=== PATIENT | female | born 1975 | race Caucasian/White ===

== ENCOUNTER 2024-09-24 08:42 | Inpatient (IN) | payer MEDICAID, SELFPAY ==
[2024-09-24] VITALS (38 sets, daily range): BP systolic 120–203; BP diastolic 71–121; PULSE 90–160; RESP 12–20; TEMP 35–38.3; O2SAT 98–100; BMI 21.1
--- NOTE | ~2024-09-24 | XR_ITS ---
CLINICAL HISTORY: cough, weakness 1 view chest x-ray Comparison: None Findings: The lungs are clear. Heart size is normal. A right-sided dialysis catheter is present and appears adequately positioned. No acute fracture. IMPRESSION: 1. No acute findings. This document has been electronically signed by: Kenton Naqvi MD on 09/24/2024 10:38:58
--- NOTE | ~2024-09-24 | CT_ITS ---
CLINICAL HISTORY: fall neck trauma CT cervical spine without contrast Comparison: None Findings: Normal vertebral body alignment. Degenerative changes are seen at C5-6 with disc space narrowing. No acute fractures or dislocations. No acute findings on limited view of the intracranial contents. Soft tissues of the neck are normal. Lung apices are clear. IMPRESSION: No acute findings. This document has been electronically signed by: Kenton Naqvi MD on 09/24/2024 11:53:56
--- NOTE | ~2024-09-24 | CT_ITS ---
CLINICAL HISTORY: acute change, very HTNive, seizures rule out bleed CT head without contrast. COMPARISON: CT head dated 09/24/24 at 10:36 EST FINDINGS: The visualized paranasal sinuses are clear. The mastoid air cells are clear. No calvarial fracture. No evidence for mass or mass effect. No intracranial hemorrhage or abnormal extra-axial fluid collection. Basal ganglia mineralization present bilaterally, stable. No evidence of hydrocephalus. The basilar cisterns are patent. Posterior fossa appears unremarkable. IMPRESSION: 1. No acute intracranial findings. This document has been electronically signed by: Darian Fernandez MD on 09/24/2024 16:23:09
--- NOTE | ~2024-09-24 | CT_ITS ---
CLINICAL HISTORY: change in mental status CT head without contrast Comparison: None Findings: No intra-axial mass, midline shift, hydrocephalus, or acute hemorrhage. There is moderate cortical atrophy for a patient of this age. There may be some low-attenuation changes in the periventricular and subcortical white matter. There is no sinus or mastoid fluid. The orbits are unremarkable. There is no acute fracture. The study is limited by motion. IMPRESSION: 1. Study somewhat limited by motion. Moderate cortical atrophy for a patient of this age. 2. Suspect low-attenuation changes in the periventricular and subcortical white matter perhaps reflecting microvascular ischemia. This document has been electronically signed by: Kenton Naqvi MD on 09/24/2024 11:48:18
--- NOTE | ~2024-09-24 | CT_ITS ---
CLINICAL HISTORY: ams, found down CT chest without contrast Comparison: None Findings: A dialysis catheter is present the tip of which is in the right atrium. Heart demonstrates no acute abnormalities. The visualized thyroid and mediastinum are unremarkable. Soft tissue emphysema is seen along the left anterior chest. There may be body wall edema. Soft tissue calcifications are seen in the left lateral anterior chest and adjacent to the shoulder and humerus. No acute fractures. IMPRESSION: 1. Small amount of soft tissue emphysema left anterior chest. 2. Mild body wall edema. 3. Soft tissue calcifications adjacent to shoulder and humerus. This document has been electronically signed by: Kenton Naqvi MD on 09/24/2024 11:52:04
--- NOTE | ~2024-09-24 | XR_ITS ---
CLINICAL HISTORY: intubated ETT placement Single view of the chest. COMPARISON: XR chest dated 09/24/24 at 10:26 EST FINDINGS: Endotracheal tube terminates 2.3 cm above the yaron. Stable large bore double-lumen central venous right subclavian line, tip overlying the right atrium. Low lung volumes. Borderline cardiomegaly. No consolidation. No pleural effusion or pneumothorax. No fracture identified. IMPRESSION: 1. Endotracheal tube terminates appropriately 2.3 cm above the yaron. This document has been electronically signed by: Darian Fernandez MD on 09/24/2024 15:41:40
--- NOTE | ~2024-09-24 | CT_ITS ---
CLINICAL HISTORY: ams, found down CT abdomen and pelvis without contrast Comparison: None Findings: No consolidation or effusion. 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 No bowel obstruction, pneumoperitoneum, or pneumatosis. There is body wall edema. Pelvic contents unremarkable. Normal appendix. A Culver catheter is seen. Its position is uncertain though it does not appear to be within the urinary bladder. It is likely within vagina and cervix. No acute fracture. Vascular calcifications are noted. IMPRESSION: 1.Culver catheter appears to be malpositioned and likely within the vagina and cervix. Please correlate clinically and adjust accordingly. 2.Body wall edema. 3. No definite acute intra-abdominal process. This document has been electronically signed by: Kenton Naqvi MD on 09/24/2024 12:00:58
--- NOTE | 2024-09-24 09:06 | ECG_ITS ---
Test Reason : TACHYCARDIC Blood Pressure : */* mmHG Vent. Rate : 172 BPM Atrial Rate : * BPM P-R Int : * ms QRS Dur : 140 ms QT Int : 306 ms P-R-T Axes : * 187 -71 degrees QTcB Int : 517 ms Wide QRS tachycardia - suspect SVT with abberrancy Right superior axis deviation Non-specific intra-ventricular conduction block Abnormal ECG No previous ECGs available Referred By: Elena Raymond Electronically Signed By: Tom Hansen
--- NOTE | 2024-09-24 09:38 | PC.NURSE ---
patient presented to the ED after [facility] found patient at home altered mental status. per ems patient hx is dialysis, unknown last dialysis. ENS states patient was on floor, right sided gaze, not responding/following commands. patient noted to have bruising of various stages of healing. patient bilat shoulders noted to be red, warm to the touch and rigid. multiple IV attempts, ED attending at bedside for lnie placement. IJ placed in the right, labs drawn. patient noted to be in SVT rate 150s-170s. patient medicated per SEP. temp sensing dexter placed- no urine output- unsure if patient still makes urine.
[2024-09-24 09:46] LABS: Glucose, Whole Blood 79 mg/dL (60-115)
[2024-09-24] MEDS: Insulin Regular, Human 100 UNIT/ML 10 ML VIAL IVPUSH (09:54)
[2024-09-24] MEDS: Calcium Gluconate/NaCl,Iso-Osm 2 GM/100 ML PLAST..BAG IV (09:55)
[2024-09-24] MEDS: Dextrose 50 % 25 GM/50 ML SYRINGE IVPUSH ×2 (09:55→11:06)
[2024-09-24] MEDS: Sodium Bicarbonate 8.4% 50 MEQ/50 ML SYRINGE IVPUSH ×2 (09:55)
[2024-09-24 09:56] LABS: Basophils Percent Auto 0.2 % (0-2); Imm Gran Abs Auto 0.14 X10*3/uL (0.00-0.03); Imm Gran Pct Auto 0.8 % (0.0-0.4); Lymphocytes Absolute Auto 0.6 X10*3/uL (1.2-4.9); MANUAL DIFF FLAG SCAN; Mean Corpuscular HGB Conc 32.5 g/dl (31.0-35.0); Mean Corpuscular Hemoglobin 28.5 pg (27.0-33.0); Mean Corpuscular Volume 87.4 fL (80.0-98.0); Monocytes Absolute Auto 0.4 X10*3/uL (0.1-1.2); Monocytes Percent Auto 2.4 % (2-11); Neutrophils Absolute Auto 17.5 x10*3/uL (2.0-8.3); Neutrophils Percent Auto 93.6 % (45-73); Platelet Count 356 X10*3/uL (160-400); Red Blood Count 2.39 X10*6/uL (4.20-5.50); Red Cell Distribution Width 15.7 % (11.0-16.0); SCAN SMEAR FLAG 1; White Blood Count 18.7 X10*3/uL (4.8-10.8)
[2024-09-24 09:59] LABS: INTERNATIONAL NORM RATIO 1.1 (0.9-1.1); Prothrombin Time 12.6 SEC (10.9-12.4)
--- NOTE | 2024-09-24 10:03 | ECG_ITS ---
Test Reason : TACHYCARDIA Blood Pressure : */* mmHG Vent. Rate : 111 BPM Atrial Rate : 111 BPM P-R Int : 130 ms QRS Dur : 70 ms QT Int : 342 ms P-R-T Axes : 59 0 29 degrees QTcB Int : 465 ms Sinus tachycardia Otherwise normal ECG When compared with ECG of 24-Sep-2024 09:36, Sinus rhythm has replaced Wide QRS tachycardia Vent. rate has decreased by 61 bpm Referred By: Elena Raymond Electronically Signed By: Tom Hansen
[2024-09-24 10:04] LABS: Hematocrit 20.9 % (37.0-47.0); Hemoglobin 6.8 g/dl (12.0-16.0)
--- OUTSIDE RECORDS SUMMARY | 2024-09-24 10:07 | XMS_ITS | Encounter Summary ---
Author Organization [facility] Address [address] [place] [phone] Phone Care Team Providers Care Almond Pan Finisher Name Role Phone Unavailable Primary Care Provider Unavailabl e Encounter Details Date Type Department Care Team ([facility] st Contact Info) Description 08/26/2024 Treatment [facility] [address] [phone] Carrillo Valerio MD [address] [phone] Social History Tobacco Use Types Packs/Day Years Used Date Smoking Tobacco: Never Assessed Comments Unknown Sex and Gender Information Value Date Recorded Sex Assigned at Not on file Legal Sex Female 11:46 AM EST Gender Identity Not on file Sexual Orientation Not on file documented as of this encounter Miscellaneous Notes * Dialysis Note - Carrillo Valerio MD - 08/26/2024 12:00 AM EST Patient: Simran Bolanos : 1975 Note Type: Dialysis Rounds-Basic Telehealth Service Date: 08/26/2024 Telehealth encounter using audiovisual technology, performed according to state requirements. Appropriate patient consent obtained. This patient was personally seen for a basic visit as part of routine monthly dialysis care for end stage renal disease. 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, unspecified Attending Intellectual Property Counsel: MARIA T FRAGOSO Dialysis Location: [facility] Schedule: Shift: 2 OVERVIEW COMMENTS: Note in dialysis subcontract manager ADEQUACY ASSESSMENT Kt/V, Natural Log 2.12 (08/05/24) 1.98 (06/29/24) 1.92 (06/03/24) UREA REDUCTION RATIO (%) 82 (08/05/24) 80 (06/29/24) 82 (06/03/24) BUN 104 (08/05/24) 128 (06/29/24) 100 (06/03/24) BUN Post Dialysis 19 (08/05/24) 25 (06/29/24) 18 (06/03/24) Creatinine 9.08 (08/05/24) 9.74 (06/29/24) 8.75 (06/03/24) Bicarbonate (CO2) 21 (08/05/24) 20 (06/29/24) 21 (06/03/24) Sodium 132 (08/05/24) 136 (06/29/24) 134 (06/03/24) ANEMIA ASSESSMENT Hgb 9.1 (08/19/24) 7.7 (08/05/24) 9.6 (07/17/24) Iron Saturation (TSat) 59 (08/05/24) 27 (06/29/24) 25 (06/03/24) Ferritin 1,280 (08/05/24) 874 (06/29/24) 760 (06/03/24) Iron 93 (08/05/24) 46 (06/29/24) 45 (06/03/24) TIBC 158 (08/05/24) 171 (06/29/24) 183 (06/03/24) MCV 96.4 (08/05/24) 96.3 (06/29/24) 96.5 (06/03/24) Platelets 274 (08/05/24) 375 (06/29/24) 349 (06/03/24) BMM ASSESSMENT Calcium, Adjusted Total 9.4 08/05/24 10.2 06/29/24 10.2 06/03/24 Calcium 9.0 08/05/24 10.0 06/29/24 10.0 06/03/24 Phosphorus, Serum 7.9 08/17/24 8.9 08/05/24 6.9 07/13/24 Ca*PO4 80.1 08/05/24 112.0 06/29/24 68.0 06/03/24 PTH, Intact 182 08/05/24 Magnesium 2.6 08/05/24 2.5 06/29/24 2.7 06/03/24 Alkaline Phosphatase 58 08/05/24 73 06/29/24 78 06/03/24 Aluminum 7 08/05/24 7 07/11/24 NUTRITION ASSESSMENT Albumin 3.5 08/05/24 3.8 06/29/24 3.8 06/03/24 Potassium 6.6 08/23/24 6.3 08/19/24 6.4 08/17/24 ADDITIONAL LABS White Blood Cells 3.4 (08/05/24) 8.0 (06/29/24) 8.2 (06/03/24) Cholesterol 140 (08/05/24) HDL 46 (08/05/24) LDL-Calc 73 (08/05/24) Triglycerides 104 (08/05/24) Hep B Surface Antibody <4 (08/05/24) Uric Acid 6.6 (08/05/24) ADDITIONAL COMMENT COMMENTS: 05/02/24 adjusting to HD 05/18/24 stable 05/30/24 doing ok 06/13/24 stable 06/21/24 doing ok 07/04/24 stable 08/26/24 same issues Signed by: CARRILLO VALERIO MD on 08/26/2024 at 07:58:42 PM Transcribed by: CARRILLO VALERIO MD on 08/26/2024 at 07:58:42 PM documented in this encounter Plan of Treatment Not on file documented as of this encounter Visit Diagnoses Not on filedocumented in this encounter
--- OUTSIDE RECORDS SUMMARY | 2024-09-24 10:07 | XMS_ITS | Encounter Summary ---
Author Organization [facility] Address [address] [place] [phone] Phone Care Team Providers Care Bottoming Room Inspector Name Role Phone Unavailable Primary Care Provider Unavailabl e Encounter Details Date Type Department Care Team ([facility] st Contact Info) Description 09/07/2024 Treatment [facility] [address] [phone] Carrillo Valerio MD [address] [phone] Social History Tobacco Use Types Packs/Day Years Used Date Smoking Tobacco: Never Assessed Comments Unknown Sex and Gender Information Value Date Recorded Sex Assigned at Not on file Legal Sex Female 11:46 AM EST Gender Identity Not on file Sexual Orientation Not on file documented as of this encounter Miscellaneous Notes * Dialysis Note - Carrillo Valerio MD - 09/07/2024 12:00 AM EST Patient: Simran Bolanos : 1975 Note Type: Dialysis Rounds-Comp Service Date: 09/07/2024 This patient was personally seen for a complete visit as part of routine monthly dialysis care for end stage renal disease. 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, unspecified Attending Computer Systems Software Engineer: MARIA T FRAGOSO MD Dialysis Location: [facility] Schedule: Shift: 2 OVERVIEW COMMENTS: Note in dialysis manager ecommerce ADEQUACY ASSESSMENT Kt/V, Natural Log 1.30 (09/02/24) 2.12 (08/05/24) 1.98 (06/29/24) UREA REDUCTION RATIO (%) 70 (09/02/24) 82 (08/05/24) 80 (06/29/24) BUN 79 (09/02/24) 104 (08/05/24) 128 (06/29/24) BUN Post Dialysis 24 (09/02/24) 19 (08/05/24) 25 (06/29/24) Creatinine 10.55 (09/02/24) 9.08 (08/05/24) 9.74 (06/29/24) Bicarbonate (CO2) 25 (09/02/24) 21 (08/05/24) 20 (06/29/24) Sodium 132 (09/02/24) 132 (08/05/24) 136 (06/29/24) ANEMIA ASSESSMENT Hgb 8.6 (09/02/24) 9.1 (08/19/24) 7.7 (08/05/24) Iron Saturation (TSat) 31 (09/02/24) 59 (08/05/24) 27 (06/29/24) Ferritin 1,071 (09/02/24) 1,280 (08/05/24) 874 (06/29/24) Iron 36 (09/02/24) 93 (08/05/24) 46 (06/29/24) TIBC 118 (09/02/24) 158 (08/05/24) 171 (06/29/24) MCV 91.8 (09/02/24) 96.4 (08/05/24) 96.3 (06/29/24) Platelets 343 (09/02/24) 274 (08/05/24) 375 (06/29/24) BMM ASSESSMENT Calcium, Adjusted Total 9.8 09/02/24 9.4 08/05/24 10.2 06/29/24 Calcium 9.3 09/02/24 9.0 08/05/24 10.0 06/29/24 Phosphorus, Serum 8.8 09/02/24 7.9 08/17/24 8.9 08/05/24 Ca*PO4 81.8 09/02/24 80.1 08/05/24 112.0 06/29/24 PTH, Intact 182 08/05/24 Magnesium 2.3 09/02/24 2.6 08/05/24 2.5 06/29/24 Alkaline Phosphatase 65 09/02/24 58 08/05/24 73 06/29/24 Aluminum 7 08/05/24 7 07/11/24 NUTRITION ASSESSMENT Albumin 3.4 09/02/24 3.5 08/05/24 3.8 06/29/24 Potassium 6.0 09/02/24 4.6 08/26/24 6.6 08/23/24 ADDITIONAL LABS White Blood Cells 6.6 (09/02/24) 3.4 (08/05/24) 8.0 (06/29/24) Cholesterol 140 (08/05/24) HDL 46 (08/05/24) LDL-Calc 73 (08/05/24) Triglycerides 104 (08/05/24) Hep B Surface Antibody <4 (08/05/24) Uric Acid 6.6 (08/05/24) ADDITIONAL COMMENT COMMENTS: 09/05/24 same issues 05/02/24 adjusting to HD 05/18/24 stable 05/30/24 doing ok 06/13/24 stable 06/21/24 doing ok 07/04/24 stable 08/26/24 same issues Signed by: CARRILLO VALERIO MD on 09/08/2024 at 06:08:17 AM documented in this encounter Plan of Treatment Not on file documented as of this encounter Visit Diagnoses Not on filedocumented in this encounter
--- OUTSIDE RECORDS SUMMARY | 2024-09-24 10:07 | XMS_ITS | Encounter Summary ---
Author Organization [facility] Address [address] [phone] Phone Care Team Providers Care Food Safety Officer Name Role Phone Unavailable Primary Care Provider Unavailabl e Encounter Details Date Type Department Care Team ([facility] st Contact Info) Description 09/14/2024 Treatment [facility] [address] [phone] Carrillo Valerio MD [address] [phone] Social History Tobacco Use Types Packs/Day Years Used Date Smoking Tobacco: Never Assessed Comments Unknown Sex and Gender Information Value Date Recorded Sex Assigned at Not on file Legal Sex Female 11:46 AM EST Gender Identity Not on file Sexual Orientation Not on file documented as of this encounter Miscellaneous Notes * Dialysis Note - Carrillo Valerio MD - 09/14/2024 12:00 AM EST Patient: Simran Bolanos : 1975 Note Type: Dialysis Rounds-Basic Telehealth Service Date: 09/14/2024 Telehealth encounter using audiovisual technology, performed according to state requirements. Appropriate patient consent obtained. This patient was personally seen for a basic visit as part of routine monthly dialysis care for end stage renal disease. 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 Schedule: Shift: 2 OVERVIEW COMMENTS: Note in dialysis creative resource manager ADEQUACY ASSESSMENT Kt/V, Natural Log 1.30 (09/02/24) 2.12 (08/05/24) 1.98 (06/29/24) UREA REDUCTION RATIO (%) 70 (09/02/24) 82 (08/05/24) 80 (06/29/24) BUN 79 (09/02/24) 104 (08/05/24) 128 (06/29/24) BUN Post Dialysis 24 (09/02/24) 19 (08/05/24) 25 (06/29/24) Creatinine 10.55 (09/02/24) 9.08 (08/05/24) 9.74 (06/29/24) Bicarbonate (CO2) 25 (09/02/24) 21 (08/05/24) 20 (06/29/24) Sodium 132 (09/02/24) 132 (08/05/24) 136 (06/29/24) ANEMIA ASSESSMENT Hgb 7.8 (09/19/24) 8.6 (09/02/24) 9.1 (08/19/24) Iron Saturation (TSat) 31 (09/02/24) 59 (08/05/24) [...] 09/02/24 9.0 08/05/24 10.0 06/29/24 Phosphorus, Serum 10.9 09/14/24 8.8 09/02/24 7.9 08/17/24 Ca*PO4 81.8 09/02/24 80.1 08/05/24 112.0 06/29/24 [...] (08/05/24) ADDITIONAL COMMENT COMMENTS: 09/05/24 same issues 09/14/24 stable 05/02/24 adjusting to HD 05/18/24 stable 05/30/24 doing ok 06/13/24 stable 06/21/24 doing ok 07/04/24 stable 08/26/24 same issues Signed by: CARRILLO VALERIO MD on 09/22/2024 at 04:25:06 AM documented in this encounter Plan of Treatment Not on file documented as of this encounter Visit Diagnoses Not on filedocumented in this encounter
--- OUTSIDE RECORDS SUMMARY | 2024-09-24 10:07 | XMS_ITS | Clinical Summary ---
Author Organization [employer] Address [address] [facility] [address] [place] [id number] Care Team Providers Care Automobile Service Station Manager Name Role Phone Simone Sloan PA-C Primary Care Provider [phone] Allergies No known active allergies Medications amphetamine-dextro amphetamine (Adderall) 20 MG tabletIndications: Attention deficit hyperactivity disorder (ADHD), predominantly inattentive type Take 1 tablet (20 mg) by mouth 2 times daily for 28 days. 56 tablet 3 Active clonazePAM (KlonoPIN) 1 MG tabletIndications: Panic disorder Take 1 tablet (1 mg) by mouth if needed in the morning, at noon, and at bedtime for anxiety for up to 28 days. 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 Panic disorder 10/21/2021 Herpes simplex 08/22/2021 Social History Tobacco Use Types Packs/Day Years Used Date Smoking Tobacco: Never Assessed Comments Unknown Sex and Gender Information Value Date Recorded Sex Assigned at Not on file Legal Sex Female 6:23 PM EDT Gender Identity Female 05/23/2022 6:23 PM EDT Sexual Orientation Not on file Plan of Treatment Health Maintenance Due Date Last Done Comments CT Colonography 1975 Colonoscopy 1975 Colorectal Cancer Screening 1975 Depression Screening 1975 FIT DNA/Cologuard 1975 FIT 1975 FOBT 1975 HIV Screening 1975 Sigmoidoscopy 1975 Alcohol/Substance Use Screening 1987 Tobacco Screening 1987 Family Planning (PISQ) 1990 Hepatitis C Screening 1993 DTaP/Tdap/Td Vaccines (1 - Tdap) 1994 Hepatitis B Vaccines (1 of 3 - 19+ 3-dose series) 1994 Pap Smear 1996 Cervical Cancer Screening 2005 HPV/Cotest 2005 Mammogram 2015 COVID-19 Vaccine (4 - 2023-2 5 season) 2024 07/01/2021, 09/21/2020, 08/24/2020 Influenza Vaccine (#1) 2024 Zoster Vaccines (1 of 2) 2025 RSV Patients and Patients Aged 60 years or older (1 - 1-dose 75+ series) 2050 HIB Vaccines Aged Out No longer eligi ble based on patient's age to complete this topic HPV Vaccines Aged Out No longer eligi ble based on patient's age to complete this topic Hepatitis A Vaccines Aged Out No long er eligible based on patient's age to complete this topic IPV Vaccines Aged Out No longer eligi ble based on patient's age to complete this topic Meningococcal Vaccine Aged Out No nicole pavan eligible based on patient's age to complete this topic Pneumococcal Vaccine: Pediatrics (0 to 5 Years) and At-Risk Patients (6 to 49) Years) Aged Out No longer eligible b ased on patient's age to complete this topic RSV under 20 months Aged Out No longe r eligible based on patient's age to complete this topic Rotavirus Vaccines Aged Out No longer eligible based on patient's age to complete this topic Care Teams Automobile Service Station Manager Relationship Specialty Start Date End Date Simone Sloan PA-C [address] [place] [address] PCP - General Family Medicine 11/16/23
--- OUTSIDE RECORDS SUMMARY | 2024-09-24 10:07 | XMS_ITS | Encounter Summary ---
Author Organization [facility] Address [address] [place] [phone] Phone Care Team Providers Care Spray Painter Helper Name Role Phone Unavailable Primary Care Provider Unavailabl e Encounter Details Date Type Department Care Team ([facility] st Contact Info) Description 08/23/2024 Treatment [facility] [address] [phone] Carrillo Valerio MD [address] [phone] Social History Tobacco Use Types Packs/Day Years Used Date Smoking Tobacco: Never Assessed Comments Unknown Sex and Gender Information Value Date Recorded Sex Assigned at Not on file Legal Sex Female 11:46 AM EST Gender Identity Not on file Sexual Orientation Not on file documented as of this encounter Miscellaneous Notes * Dialysis Note - Carrillo Valerio MD - 08/23/2024 12:00 AM EST Patient: Simran Bolanos : 1975 Note Type: Dialysis Rounds-Basic Telehealth Service Date: 08/23/2024 Telehealth encounter using audiovisual technology, performed according to state requirements. Appropriate patient consent obtained. This patient was personally seen for a basic visit as part of routine monthly dialysis care for end stage renal disease. 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, unspecified Attending Speed Belt Sander Tender: MARIA T FRAGOSO Dialysis Location: [facility] Schedule: Shift: 2 OVERVIEW COMMENTS: Note in dialysis training program manager ADEQUACY ASSESSMENT Kt/V, Natural Log 2.12 [...] 06/13/24 stable 06/21/24 doing ok 07/04/24 stable 08/23/24: cont poor compl--unwilling to stay full Tx, K runnuing high--sup to take Lokelma; cont to discuss importance of being compliant Signed by: CARRILLO VALERIO MD on 08/25/2024 at 08:40:01 AM Transcribed by: CARRILLO VALERIO MD on 08/25/2024 at 08:40:01 AM documented in this encounter Plan of Treatment Not on file documented as of this encounter Visit Diagnoses Not on filedocumented in this encounter
--- OUTSIDE RECORDS SUMMARY | 2024-09-24 10:07 | XMS_ITS | Encounter Summary ---
Author Organization [facility] Address [address] [place] [phone] Phone Care Team Providers Care Wire Drawing Machine Tender Name Role Phone Unavailable Primary Care Provider Unavailabl e Encounter Details Date Type Department Care Team ([facility] st Contact Info) Description 08/29/2024 Treatment [facility] [address] [phone] Carrillo Valerio MD [address] [phone] Social History Tobacco Use Types Packs/Day Years Used Date Smoking Tobacco: Never Assessed Comments Unknown Sex and Gender Information Value Date Recorded Sex Assigned at Not on file Legal Sex Female 11:46 AM EST Gender Identity Not on file Sexual Orientation Not on file documented as of this encounter Miscellaneous Notes * Dialysis Note - Carrillo Valerio MD - 08/29/2024 12:00 AM EST Patient: Simran Bolanos : 1975 Note Type: Dialysis Rounds-Basic Service Date: 08/29/2024 This patient was personally seen for a basic visit as part of routine monthly dialysis care for end stage renal disease. 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, unspecified Attending Securities Teller: MARIA T FRAGOSO MD Dialysis Location: [facility] Schedule: Shift: 2 OVERVIEW COMMENTS: Note in dialysis circuit manager ADEQUACY ASSESSMENT Kt/V, Natural Log 1.30 [...] Uric Acid 6.6 (08/05/24) ADDITIONAL COMMENT COMMENTS: 08/29/24 stable 09/05/24 same issues 05/02/24 adjusting to HD 05/18/24 stable 05/30/24 doing ok 06/13/24 stable 06/21/24 doing ok 07/04/24 stable 08/26/24 same issues Signed by: CARRILLO VALERIO MD on 09/22/2024 at 03:36:47 AM documented in this encounter Plan of Treatment Not on file documented as of this encounter Visit Diagnoses Not on filedocumented in this encounter
--- OUTSIDE RECORDS SUMMARY | 2024-09-24 10:07 | XMS_ITS | Encounter Summary ---
Author Organization [facility] Address [address] [place] [address] Phone Care Team Providers Care Emergency Dispatch Operator Name Role Phone Unavailable Primary Care Provider Unavailabl e Encounter Details Date Type Department Care Team (Late st Contact Info) Description 08/26/2024 Orders Only [facility] [address] [place] [address] Raoul Dooley MD [address] [address] [place] [address] Social History Tobacco Use Types Packs/Day Years Used Date Smoking Tobacco: Never Assessed Comments Unknown Sex and Gender Information Value Date Recorded Sex Assigned at Not on file Legal Sex Female 11:46 AM EST Gender Identity Not on file Sexual Orientation Not on file documented as of this encounter Plan of Treatment Not on file documented as of this encounter Procedures Procedure Name Priority Date/Time Associated Diagnosis Comments HEMOGLOBIN Routine 09/19/2024 3:00 AM EST LIH () Routine 09/14/2024 3:00 AM EST PHOSPHATE ( PHOSPHORUS) Routine 09/14/2024 3:00 AM EST LIH () Routine 09/02/2024 3:00 AM EST KT/V NATURAL LOG, URR () Routine 09/02/2024 3:00 AM EST CALCIUM PHOSPHORUS PRODUCT, ADJUSTED () Routine 09/02/2024 3:00 AM EST HEPATITIS B SURFACE ANTIGEN W/REFL CONFIRM Routine 09/02/2024 3:00 AM EST TRANSFERRIN SATURATION Routine 3:00 AM EST CBC AND DIFFERENTIAL Routine 09/02/2024 3:00 AM EST ALT Routine 09/02/2024 3:00 AM EST AST Routine 09/02/2024 3:00 AM EST PROTEIN, TOTAL, SERUM Routine 09/02/2024 3:00 AM EST ALKALINE PHOSPHATASE Routine 09/02/2024 3:00 AM EST MAGNESIUM Routine 09/02/2024 3:00 AM EST LACTATE DEHYDROGENASE Routine 09/02/2024 3:00 AM EST GLUCOSE, RANDOM Routine 09/02/2024 3:00 AM EST FERRITIN Routine 09/02/2024 3:00 AM EST CREATININE, SERUM Routine 09/02/2024 3:0 0 AM EST BILIRUBIN, TOTAL Routine 09/02/2024 3:00 AM EST ELECTROLYTE PANEL Routine 09/02/2024 3:0 0 AM EST COLLECTION DATE (HC) Routine 08/26/2024 3:00 AM EST LIH (HC) Routine 08/26/2024 3:00 AM EST POTASSIUM Routine 08/26/2024 3:00 AM EST documented in this encounter Results * (ABNORMAL) Hemoglobin (09/19/2024 3:00 AM EST) Hgb 7.8(L) 11.2 - 15.7 g/dL [facility] Hemoglobin x 3 23.4(L) 33.6 - 47.1 g/dL [facility] 09/19/2024 3:00 AM EST 09/20/2024 12:19 PM EST Raoul Dooley MD LAB BLOOD ORDERABLES Final Re sult Performing Organization Address [facility] Co de Phone Number [facility] [address] [place] [address] * (ABNORMAL) Phosphorus (09/14/2024 3:00 AM EST) [facility] Phosphorus, Serum 10.9(H) 2.5 - 5.0 mg/dL [facility] 09/14/2024 3:00 AM EST 09/16/2024 1:21 PM EST Raoul Dooley MD LAB BLOOD ORDERABLES Final Re sult Performing Organization Address [facility] [[email or web address]] de Phone Number [facility] [address] [place] [address] * LIH (09/14/2024 3:00 AM EST) [facility] Lipemia Normal Normal [facility] Icterus Normal Normal [facility] Hemolysis Normal Normal [facility] 09/14/2024 3:00 AM EST 09/16/2024 1:21 PM EST Raoul Dooley MD LAB [id number] SOLICITED RESULTS Final Result Performing Organization Address [facility] [[email or web address]] de Phone Number [facility] [address] [place] [address] * Hepatitis B Surface Ag w/Reflex Confirmation (09/02/2024 3:00 AM EST) [facility] Hep B Surface Antigen Negative Negative [facility] 09/02/2024 3:00 AM EST 09/03/2024 1:52 PM EST Raoul Dooley MD LAB BLOOD ORDERABLES Final Re sult Performing Organization Address [facility] de Phone Number [facility] [address] [place] [address] * (ABNORMAL) TSAT (09/02/2024 3:00 AM EST) Iron 36(L) 50 - 170 ug/dL [facility] Transferrin 84(L) 250 - 380 mg/dL [facility] TIBC 118(L) 211 - 406 ug/dL [facility] Iron Saturation (TSat) 31 22 - 52 % [facility] 09/02/2024 3:00 AM EST 09/03/2024 1:52 PM EST Raoul Dooley MD LAB BLOOD ORDERABLES Final Re sult Performing Organization Address [facility] de Phone Number [facility] [address] [place] [address] * Magnesium (09/02/2024 3:00 AM EST) Pathologist [facility] Magnesium 2.3 1.9 - 2.7 mg/dL [facility] 09/02/2024 3:00 AM EST 09/03/2024 1:52 PM EST Raoul Dooley MD LAB BLOOD ORDERABLES Final Re sult Performing Organization Address [facility] de Phone Number [facility] [address] [place] [address] * (ABNORMAL) Electrolyte panel (09/02/2024 3:00 AM EST) Sodium 132(L) 136 - 145 mEq/L [facility] Potassium 6.0(H) 3.4 - 5.0 mEq/L [facility] Chloride 94(L) 98 - 107 mEq/L [facility] Bicarbonate (CO2) 25 21 - 31 mEq/L [facility] Anion Gap 13 3 - 14 mEq/L [facility] 09/02/2024 3:00 AM EST 09/03/2024 1:52 PM EST Raoul Dooley MD LAB BLOOD ORDERABLES Final Re sult Performing Organization Address [facility] Co de Phone Number [facility] [address] [place] [address] * LIH (09/02/2024 3:00 AM EST) Lipemia Normal Normal [facility] Icterus Normal Normal [facility] Hemolysis Normal Normal [facility] 09/02/2024 3:00 AM EST 09/03/2024 1:52 PM EST Raoul Dooley MD LAB [id number] SOLICITED RESULTS Final Result Performing Organization Address [facility] de Phone Number [facility] [address] [place] [address] * (ABNORMAL) Bilirubin, total (09/02/2024 3:00 AM EST) Total Bilirubin 0.2(L) 0.3 - 1.2 mg/dL [facility] 09/02/2024 3:00 AM EST 09/03/2024 1:52 PM EST Raoul Dooley MD LAB BLOOD ORDERABLES Final Re sult Performing Organization Address [facility] de Phone Number [facility] [address] [place] [address] * (ABNORMAL) Creatinine, serum (09/02/2024 3:00 AM EST) Creatinine 10.55(H) 0.55 - 1.02 mg/dL [facility] 09/02/2024 3:00 AM EST 09/03/2024 1:52 PM EST Raoul Dooley MD LAB BLOOD ORDERABLES Final Re sult Performing Organization Address [facility] Co de Phone Number [facility] [address] [place] [address] * Glucose, random (09/02/2024 3:00 AM EST) Glucose 90 74 - 109 mg/dL [facility] 09/02/2024 3:00 AM EST 09/03/2024 1:52 PM EST Raoul Dooley MD LAB BLOOD ORDERABLES Final Re sult Performing Organization Address [facility] de Phone Number [facility] [address] [place] [address] * (ABNORMAL) Lactate dehydrogenase (09/02/2024 3:00 AM EST) LDH 297(H) 120 - 246 U/L [facility] 09/02/2024 3:00 AM EST 09/03/2024 1:52 PM EST Raoul Dooley MD LAB BLOOD ORDERABLES Final Re sult Performing Organization Address [facility] Phone Number [facility] [address] [place] [address] * Protein, total (09/02/2024 3:00 AM EST) Total Protein 6.5 6.4 - 8.9 g/dL [facility] 09/02/2024 3:00 AM EST 09/03/2024 1:52 PM EST Raoul Dooley MD LAB BLOOD ORDERABLES Final Re sult Performing Organization Address [facility] de Phone Number [facility] [address] [place] [address] * (ABNORMAL) ALT (09/02/2024 3:00 AM EST) ALT (SGPT) <7(L) 10 - 49 U/L [facility] 09/02/2024 3:00 AM EST 09/03/2024 1:52 PM EST Raoul Dooley MD LAB BLOOD ORDERABLES Final Re sult Performing Organization Address [facility] de Phone Number [facility] [address] [place] [address] * AST (09/02/2024 3:00 AM EST) AST (SGOT) <8 <34 U/L [facility] 09/02/2024 3:00 AM EST 09/03/2024 1:52 PM EST Raoul Dooley MD LAB BLOOD ORDERABLES Final Re sult Performing Organization Address [facility] de Phone Number [facility] [address] [place] [address] * Alkaline phosphatase (09/02/2024 3:00 AM EST) Alkaline Phosphatase 65 46 - 116 U/L [facility] 09/02/2024 3:00 AM EST 09/03/2024 1:52 PM EST Raoul Dooley MD LAB BLOOD ORDERABLES Final Re sult Performing Organization Address [facility] de Phone Number [facility] [address] [place] [address] * (ABNORMAL) Calcium Phosphorus Product, Adjusted (09/02/2024 3:00 AM EST) Albumin 3.4(L) 3.6 - 5.4 g/dL [facility] Calcium 9.3 8.6 - 10.3 mg/dL [facility] Phosphorus, Serum 8.8(H) 2.5 - 5.0 mg/dL [facility] Ca*PO4 81.8(A) <55.0 mg2/dL2 [facility] Calcium, Adjusted Total 9.8 8.6 - 10.3 mg/dL [facility] CA*PO4 CORRCTD 86.2(A) <55.0 mg2/dL2 [facility] 09/02/2024 3:00 AM EST 09/03/2024 1:52 PM EST us Raoul Dooley MD LAB [id number] SOLICITED RESULTS Final Result Performing Organization Address [facility] [[email or web address]] de Phone Number [facility] [address] [place] [address] * (ABNORMAL) Ferritin (09/02/2024 3:00 AM EST) [facility] Ferritin 1,071(H) 10 - 291 ng/mL [facility] 09/02/2024 3:00 AM EST 09/03/2024 1:52 PM EST Raoul Dooley MD LAB BLOOD ORDERABLES Final Re sult Performing Organization Address [facility] [[email or web address]] de Phone Number [facility] [address] [place] [address] * (ABNORMAL) Kt/V Natural Log, URR (09/02/2024 3:00 AM EST) [facility] Treatment Time 127 min [facility] Pre-Weight, lb 49.4 kg [facility] Post-Weight, lb 48.6 kg [facility] Ultrafiltration Rate 8 <=13 mL/kg/hr [facility] Comment: Recommend achieving Ultrafiltration Rate (UFR) <=10 mL/kg/hr References: Keenan WALTERS et al. Kidney Int. 2010; 79(2):250-257 BUN Post Dialysis 24 7 - 25 mg/dL [facility] BUN 79(H) 7 - 25 mg/dL [facility] UREA REDUCTION RATIO (%) 70 >=65 % [facility] Kt/V Natural Log 1.30 >=1.2 [facility] 09/02/2024 3:00 AM EST 09/03/2024 1:52 PM EST Raoul Dooley MD LAB [id number] SOLICITED RESULTS Final Result Performing Organization Address [facility] [[email or web address]] de Phone Number [facility] [address] [place] [address] * (ABNORMAL) CBC and Differential (09/02/2024 3:00 AM EST) [facility] DIFFERENTIAL MANUAL, 2 Not Indicated [facility] White Blood Cells 6.6 4.0 - 10.0 K/uL [facility] RBC 3.04(L) 3.93 - 5.22 M/uL [facility] Hgb 8.6(L) 11.2 - 15.7 g/dL [facility] Hemoglobin x 3 25.8(L) 33.6 - 47.1 g/dL [facility] Hematocrit 27.9(L) 34.1 - 44.9 % [facility] MCV 91.8 79.4 - 94.8 fL [facility] MCH 28.3 25.6 - 32.2 pg [facility] MCHC 30.8(L) 32.2 - 35.5 g/dL [facility] Platelets 343 182 - 369 K/uL [facility] RDW 14.5(H) 11.7 - 14.4 % [facility] Neutrophils Relative 72.5(H) 34.0 - 71.1 % [facility] Lymphocytes Relative 18.1(L) 19.3 - 51.7 % [facility] Monocytes 6.8 4.7 - 12.5 % [facility] Eosinophils Relative 1.8 0.7 - 5.8 % [facility] Basophils Relative 0.5 0.1 - 1.2 % [facility] Immature Granulocytes 0.3 0.0 - 1.0 % [facility] 09/02/2024 3:00 AM EST 09/03/2024 1:38 PM EST Raoul Dooley MD LAB BLOOD ORDERABLES Final Re sult [facility] [address] [place] [address] * LIH (08/26/2024 3:00 AM EST) Lipemia Normal Normal [facility] Icterus Normal Normal [facility] Hemolysis Normal Normal [facility] 08/26/2024 3:00 AM EST 08/29/2024 1:08 PM EST Raoul Dooley MD LAB [id number] SOLICITED RESULTS Final Result Performing Organization Address City/[facility]/ZIP Co de Phone Number [facility] [address] [place] [address] * Potassium (08/26/2024 3:00 AM EST) Potassium 4.6 3.4 - 5.0 mEq/L [facility] 08/26/2024 3:00 AM EST 08/29/2024 1:08 PM EST Raoul Dooley MD LAB BLOOD ORDERABLES Final Re sult Performing Organization Address [facility] Co de Phone Number CAR[facility] [address] [place] [address] * Collection Date (08/26/2024 3:00 AM EST) Collection Date See Comment [facility] Comment: Patient sample received may exceed specimen stability, based on the collection date electronically provided. ??When reviewing patient results, verify collection information and consider specimen stability before acting on any critical or panic results. 08/26/2024 3:00 AM EST us Raoul Dooley MD LAB [id number] SOLICITED RESULTS Final Result Performing Organization Address [facility] Co de Phone Number [facility] [address] [place] [address] documented in this encounter Visit Diagnoses Not on filedocumented in this encounter
--- OUTSIDE RECORDS SUMMARY | 2024-09-24 10:07 | XMS_ITS | Encounter Summary ---
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 Role Phone Unavailable Primary Care Provider Unavailabl e Encounter Details Date Type Department Care Team ([facility] st Contact Info) Description 08/24/2024 Treatment [facility] [address] [address] Maria T Alas MD [address] [address] Social History Tobacco Use Types Packs/Day Years Used Date Smoking Tobacco: Never Assessed Comments Unknown Sex and Gender Information Value Date Recorded Sex Assigned at Not on file Legal Sex Female 11:46 AM EST Gender Identity Not on file Sexual Orientation Not on file documented as of this encounter Miscellaneous Notes * Dialysis Note - Maria T Alas MD - 08/24/2024 12:00 AM EST Patient: Simran Bolanos : 1975 Note Type: Dialysis Rounds-Comp Service Date: 08/24/2024 This patient was personally seen for a complete visit as part of routine monthly dialysis care for end stage renal disease. 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 Schedule: Shift: 2 OVERVIEW Patient is stable. 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 BP AND FLUID ASSESSMENT High blood pressure. Fluid status acceptable. ADEQUACY ASSESSMENT Target met. Kt/V, Natural Log 2.12 (08/05/24) 1.98 (06/29/24) 1.92 (06/03/24) UREA REDUCTION RATIO (%) 82 (08/05/24) 80 (06/29/24) 82 (06/03/24) BUN 104 (08/05/24) 128 (06/29/24) 100 (06/03/24) BUN Post Dialysis 19 (08/05/24) 25 (06/29/24) 18 (06/03/24) Creatinine 9.08 (08/05/24) 9.74 (06/29/24) 8.75 (06/03/24) Bicarbonate (CO2) 21 (08/05/24) 20 (06/29/24) 21 (06/03/24) Sodium 132 (08/05/24) 136 (06/29/24) 134 (06/03/24) ACCESS ASSESSMENT Vascular access examined. ANEMIA ASSESSMENT Anemia targets met. Hemoglobin not at target. Hgb 9.1 (08/19/24) 7.7 (08/05/24) 9.6 (07/17/24) Iron Saturation (TSat) 59 (08/05/24) 27 (06/29/24) 25 (06/03/24) Ferritin 1,280 (08/05/24) 874 (06/29/24) 760 (06/03/24) Iron 93 (08/05/24) 46 (06/29/24) 45 (06/03/24) TIBC 158 (08/05/24) 171 (06/29/24) 183 (06/03/24) MCV 96.4 (08/05/24) 96.3 (06/29/24) 96.5 (06/03/24) Platelets 274 (08/05/24) 375 (06/29/24) 349 (06/03/24) BMM ASSESSMENT PTH within target. Hyperphosphatemia noted. Calcium controlled. Bone and mineral metabolism parameters reviewed. Calcium, Adjusted Total 9.4 08/05/24 10.2 06/29/24 10.2 06/03/24 Calcium 9.0 08/05/24 10.0 06/29/24 10.0 06/03/24 Phosphorus, Serum 7.9 08/17/24 8.9 08/05/24 6.9 07/13/24 Ca*PO4 80.1 08/05/24 112.0 06/29/24 68.0 06/03/24 PTH, Intact 182 08/05/24 Magnesium 2.6 08/05/24 2.5 06/29/24 2.7 06/03/24 Alkaline Phosphatase 58 08/05/24 73 06/29/24 78 06/03/24 Aluminum 7 08/05/24 7 07/11/24 NUTRITION ASSESSMENT Albumin not at goal. Albumin 3.5 08/05/24 3.8 06/29/24 3.8 06/03/24 Potassium 6.3 08/19/24 6.4 08/17/24 6.7 08/15/24 PHYSICAL EXAM Exam performed. Vital Signs Reviewed. Lungs - Clear. CV - Blood pressure noted. No edema. EXT - No ulcers. ADDITIONAL LABS White Blood Cells 3.4 (08/05/24) 8.0 (06/29/24) 8.2 (06/03/24) Cholesterol 140 (08/05/24) HDL 46 (08/05/24) LDL-Calc 73 (08/05/24) Triglycerides 104 (08/05/24) Hep B Surface Antibody <4 (08/05/24) Uric Acid 6.6 (08/05/24) ADDITIONAL COMMENT COMMENTS: 05/02/24 adjusting to HD 05/18/24 stable 05/30/24 doing ok 06/13/24 stable 06/21/24 doing ok 07/04/24 stable Signed by: MARIA T ALAS MD on 08/24/2024 at 12:40:02 PM documented in this encounter Plan of Treatment Not on file documented as of this encounter Visit Diagnoses Not on filedocumented in this encounter
--- OUTSIDE RECORDS SUMMARY | 2024-09-24 10:08 | XMS_ITS | Clinical Summary ---
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 Herpes simplex 08/22/2021 Encounters Date Type Department Care Team Description 09/14/2024 Treatment [facility] [address] [phone] Raoul Dooley MD 09/07/2024 Treatment [facility] [address] [phone] Raoul Dooley MD 08/29/2024 Treatment [facility] [address] [phone] Raoul Dooley MD 08/26/2024 Orders Only [facility] [address] [phone] Raoul Dooley MD 08/26/2024 Treatment [facility] [address] [phone] Raoul Dooley MD 08/24/2024 Treatment [facility] [address] [phone] Drake Alas MD 08/23/2024 Treatment [facility] [address] [phone] Raoul Dooley MD 07/19/2024 Treatment [facility] [address] [phone] Raoul Dooley MD 07/11/2024 Treatment [facility] [address] [phone] Raoul Dooley MD 07/04/2024 Treatment [facility] [address] [phone] Raoul Dooley MD from Last 3 Months Social History Tobacco Use Types Packs/Day Years Used Date Smoking Tobacco: Never Assessed Comments Unknown Sex and Gender Information Value Date Recorded Sex Assigned at Not on file Legal Sex Female 11:46 AM EST Gender Identity Not on file Sexual Orientation Not on file Plan of Treatment Health Maintenance Due Date Last Done Comments Pneumococcal Vaccine: Pediat rics (0 to 5 Years) and At-Risk Patients (6 to 64 Years) (1 of 2 - PCV) 1981 Hepatitis B Vaccine (1 of 5 - Risk Dialysis 4-dose series) 1995 Influenza Vaccine (#1) 2024 Colorectal Cancer Screening: Annual FOBT 2024 Colorectal Cancer Screening: Colonoscopy 2024 Colorectal Cancer Screening: Sigmoidoscopy 2024 Procedures Procedure Name Priority Date/Time Associated Diagnosis Comments HEMOGLOBIN Routine 09/19/2024 3:00 AM EST PHOSPHATE ( PHOSPHORUS) Routine 09/14/2024 3:00 AM EST LIH (HC) Routine 09/14/2024 3:00 AM EST HEPATITIS B SURFACE ANTIGEN W/REFL CONFIRM Routine 09/02/2024 3:00 AM EST TRANSFERRIN SATURATION Routine 3:00 AM EST MAGNESIUM Routine 09/02/2024 3:00 AM EST ELECTROLYTE PANEL Routine 09/02/2024 3:0 0 AM EST LIH (HC) Routine 09/02/2024 3:00 AM EST BILIRUBIN, TOTAL Routine 09/02/2024 3:00 AM EST CREATININE, SERUM Routine 09/02/2024 3:0 0 AM EST GLUCOSE, RANDOM Routine 09/02/2024 3:00 AM EST LACTATE DEHYDROGENASE Routine 09/02/2024 3:00 AM EST PROTEIN, TOTAL, SERUM Routine 09/02/2024 3:00 AM EST ALT Routine 09/02/2024 3:00 AM EST AST Routine 09/02/2024 3:00 AM EST ALKALINE PHOSPHATASE Routine 09/02/2024 3:00 AM EST CALCIUM PHOSPHORUS PRODUCT, ADJUSTED (HC) Routine 09/02/2024 3:00 AM EST FERRITIN Routine 09/02/2024 3:00 AM EST KT/V NATURAL LOG, URR (HC) Routine 09/02/2024 3:00 AM EST CBC AND DIFFERENTIAL Routine 09/02/2024 3:00 AM EST LIH (HC) Routine 08/26/2024 3:00 AM EST POTASSIUM Routine 08/26/2024 3:00 AM EST COLLECTION DATE (HC) Routine 08/26/2024 3:00 AM EST LIH (HC) Routine 08/23/2024 3:00 AM EST POTASSIUM Routine 08/23/2024 3:00 AM EST HEMOGLOBIN Routine 08/19/2024 3:00 AM EST POTASSIUM Routine 08/19/2024 3:00 AM EST LIH (HC) Routine 08/19/2024 3:00 AM EST LIH (HC) Routine 08/17/2024 3:00 AM EST PHOSPHATE ( PHOSPHORUS) Routine 08/17/2024 3:00 AM EST POTASSIUM Routine 08/17/2024 3:00 AM EST LIH (HC) Routine 08/15/2024 3:00 AM EST POTASSIUM Routine 08/15/2024 3:00 AM EST LIH (HC) Routine 08/12/2024 3:00 AM EST POTASSIUM Routine 08/12/2024 3:00 AM EST LIH (HC) Routine 08/10/2024 3:00 AM EST POTASSIUM Routine 08/10/2024 3:00 AM EST ALUMINUM LEVEL Routine 08/05/2024 3:00 AM EST CONFIRMATION TEST HCV Routine 08/05/2024 3:00 AM EST HEPATITIS C ABS W/REFLEX RNA DETECTR Routine 08/05/2024 3:00 AM EST CBC Routine 08/05/2024 3:00 AM EST URIC ACID Routine 08/05/2024 3:00 AM EST PROTEIN, TOTAL, SERUM Routine 08/05/2024 3:00 AM EST TRANSFERRIN SATURATION Routine 3:00 AM EST MAGNESIUM Routine 08/05/2024 3:00 AM EST LIPID PANEL Routine 08/05/2024 3:00 AM EST ELECTROLYTE PANEL Routine 08/05/2024 3:0 0 AM EST LIH (HC) Routine 08/05/2024 3:00 AM EST GLUCOSE, RANDOM Routine 08/05/2024 3:00 AM EST CREATININE, SERUM Routine 08/05/2024 3:0 0 AM EST LACTATE DEHYDROGENASE Routine 08/05/2024 3:00 AM EST AST Routine 08/05/2024 3:00 AM EST ALT Routine 08/05/2024 3:00 AM EST BILIRUBIN, TOTAL Routine 08/05/2024 3:00 AM EST ALKALINE PHOSPHATASE Routine 08/05/2024 3:00 AM EST CALCIUM PHOSPHORUS PRODUCT, ADJUSTED (HC) Routine 08/05/2024 3:00 AM EST HEPATITIS B SURFACE ANTIGEN W/REFL CONFIRM Routine 08/05/2024 3:00 AM EST FERRITIN Routine 08/05/2024 3:00 AM EST HEPATITIS B SURFACE ANTIBODY QUANT Routine 08/05/2024 3:00 AM EST PTH, INTACT Routine 08/05/2024 3:00 AM EST KT/V NATURAL LOG, URR () Routine 08/05/2024 3:00 AM EST COLLECTION DATE () Routine 08/05/2024 3:00 AM EST POTASSIUM Routine 07/17/2024 3:00 AM EST LIH () Routine 07/17/2024 3:00 AM EST HEMOGLOBIN Routine 07/17/2024 3:00 AM EST LIH () Routine 07/13/2024 3:00 AM EST POTASSIUM Routine 07/13/2024 3:00 AM EST PHOSPHATE ( PHOSPHORUS) Routine 07/13/2024 3:00 AM EST ALUMINUM LEVEL Routine 07/11/2024 3:00 AM EST LIH () Routine 07/08/2024 3:00 AM EST PHOSPHATE ( PHOSPHORUS) Routine 07/08/2024 3:00 AM EST POTASSIUM Routine 07/06/2024 3:00 AM EST LIH () Routine 07/06/2024 3:00 AM EST LIH () Routine 07/04/2024 3:00 AM EST POTASSIUM Routine 07/04/2024 3:00 AM EST HEPATITIS B SURFACE ANTIGEN W/REFL CONFIRM Routine 06/29/2024 3:00 AM EST TRANSFERRIN SATURATION Routine 3:00 AM EST PROTEIN, TOTAL, SERUM Routine 06/29/2024 3:00 AM EST ELECTROLYTE PANEL Routine 06/29/2024 3:0 0 AM EST LACTATE DEHYDROGENASE Routine 06/29/2024 3:00 AM EST MAGNESIUM Routine 06/29/2024 3:00 AM EST LIH (HC) Routine 06/29/2024 3:00 AM EST GLUCOSE, RANDOM Routine 06/29/2024 3:00 AM EST BILIRUBIN, TOTAL Routine 06/29/2024 3:00 AM EST CREATININE, SERUM Routine 06/29/2024 3:0 0 AM EST AST Routine 06/29/2024 3:00 AM EST ALKALINE PHOSPHATASE Routine 06/29/2024 3:00 AM EST ALT Routine 06/29/2024 3:00 AM EST CALCIUM PHOSPHORUS PRODUCT, ADJUSTED (HC) Routine 06/29/2024 3:00 AM EST FERRITIN Routine 06/29/2024 3:00 AM EST KT/V NATURAL LOG, URR (HC) Routine 06/29/2024 3:00 AM EST CBC AND DIFFERENTIAL Routine 06/29/2024 3:00 AM EST from Last 3 Months Results * (ABNORMAL) Hemoglobin (09/19/2024 3:00 AM EST) Only the most recent of3 resultswithin the time period is included. Hgb 7.8(L) 11.2 - 15.7 g/dL [facility] Hemoglobin x 3 23.4(L) 33.6 - 47.1 g/dL [facility] 09/19/2024 3:00 AM EST 09/20/2024 12:19 PM EST Raoul Dooley MD LAB BLOOD ORDERABLES Final Re sult Performing Organization Address [facility] Co de Phone Number [facility] [address] [place] [address] * LIH (09/14/2024 3:00 AM EST) Only the most recent of16 resultswithin the time period is included. Lipemia Normal Normal [facility] Icterus Normal Normal [facility] Hemolysis Normal Normal [facility] 09/14/2024 3:00 AM EST 09/16/2024 1:21 PM EST Raoul Dooley MD LAB [id number] SOLICITED RESULTS Final Result Performing Organization Address [facility] de Phone Number [facility] [address] [place] [address] * (ABNORMAL) Phosphorus (09/14/2024 3:00 AM EST) Only the most recent of4 resultswithin the time period is included. Phosphorus, Serum 10.9(H) 2.5 - 5.0 mg/dL [facility] 09/14/2024 3:00 AM EST 09/16/2024 1:21 PM EST Raoul Dooley MD LAB BLOOD ORDERABLES Final Re sult Performing Organization Address [facility] de Phone Number [facility] [address] [place] [address] * (ABNORMAL) Kt/V Natural Log, URR (09/02/2024 3:00 AM EST) Only the most recent of3 resultswithin the time period is included. Treatment Time 127 min [facility] Pre-Weight, lb 49.4 kg [facility] Post-Weight, lb 48.6 kg [facility] Ultrafiltration Rate 8 <=13 mL/kg/hr [facility] Comment: Recommend achieving Ultrafiltration Rate (UFR) <=10 mL/kg/hr References: Keenan WALTERS et al. Kidney Int. 2011 [place]; 79(2):250-257 BUN Post Dialysis 24 7 - 25 mg/dL [facility] BUN 79(H) 7 - 25 mg/dL [facility] UREA REDUCTION RATIO (%) 70 >=65 % [facility] Kt/V Natural Log 1.30 >=1.2 [facility] 09/02/2024 3:00 AM EST 09/03/2024 1:52 PM EST Raoul Dooley MD LAB [id number] SOLICITED RESULTS Final Result [facility] [address] [place] [address] * (ABNORMAL) Calcium Phosphorus Product, Adjusted (09/02/2024 3:00 AM EST) Only the most recent of3 resultswithin the time period is included. Albumin 3.4(L) 3.6 - 5.4 g/dL [facility] Calcium 9.3 8.6 - 10.3 mg/dL [facility] Phosphorus, Serum 8.8(H) 2.5 - 5.0 mg/dL [facility] Ca*PO4 81.8(A) <55.0 mg2/dL2 [facility] Calcium, Adjusted Total 9.8 8.6 - 10.3 mg/dL [facility] CA*PO4 CORRCTD 86.2(A) <55.0 mg2/dL2 [facility] 09/02/2024 3:00 AM EST 09/03/2024 1:52 PM EST Raoul Dooley MD LAB [id number] SOLICITED RESULTS Final Result Performing Organization Address City/[facility]/ZIP Co de Phone Number [facility] [address] [place] [address] * Hepatitis B Surface Ag w/Reflex Confirmation (09/02/2024 3:00 AM EST) Only the most recent of3 resultswithin the time period is included. Hep B Surface Antigen Negative Negative [facility] 09/02/2024 3:00 AM EST 09/03/2024 1:52 PM EST Raoul Dooley MD LAB BLOOD ORDERABLES Final Re sult Performing Organization Address [facility] de Phone Number [facility] [address] [place] [address] * (ABNORMAL) TSAT (09/02/2024 3:00 AM EST) Only the most recent of3 resultswithin the time period is included. [facility] Iron 36(L) 50 - 170 ug/dL [facility] Transferrin 84(L) 250 - 380 mg/dL [facility] TIBC 118(L) 211 - 406 ug/dL [facility] Iron Saturation (TSat) 31 22 - 52 % [facility] 09/02/2024 3:00 AM EST 09/03/2024 1:52 PM EST Raoul Dooley MD LAB BLOOD ORDERABLES Final Re sult Performing Organization Address [facility] de Phone Number [facility] [address] [place] [address] * (ABNORMAL) CBC and Differential (09/02/2024 3:00 AM EST) Only the most recent of2 resultswithin the time period is included. [facility] DIFFERENTIAL MANUAL, 2 Not Indicated [facility] White [...] ORDERABLES Final Re sult Performing Organization Address [facility] Co de Phone Number [facility] [address] [place] [address] * (ABNORMAL) ALT (09/02/2024 3:00 AM EST) Only the most recent of3 resultswithin the time period is included. ALT (SGPT) <7(L) 10 - 49 U/L [facility] 09/02/2024 3:00 AM EST 09/03/2024 1:52 PM EST Raoul Dooley MD LAB BLOOD ORDERABLES Final Re sult Performing Organization Address [facility] Co de Phone Number [facility] [address] [place] [address] * AST (09/02/2024 3:00 AM EST) Only the most recent of3 resultswithin the time period is included. AST (SGOT) <8 <34 U/L [facility] 09/02/2024 3:00 AM EST 09/03/2024 1:52 PM EST Raoul Dooley MD LAB BLOOD ORDERABLES Final Re sult Performing Organization Address [facility] Co de Phone Number [facility] [address] [place] [address] * Protein, total (09/02/2024 3:00 AM EST) Only the most recent of3 resultswithin the time period is included. Total Protein 6.5 6.4 - 8.9 g/dL [facility] 09/02/2024 3:00 AM EST 09/03/2024 1:52 PM EST Raoul Dooley MD LAB BLOOD ORDERABLES Final Re sult Performing Organization Address [facility] de Phone Number [facility] [address] [place] [address] * Alkaline phosphatase (09/02/2024 3:00 AM EST) Only the most recent of3 resultswithin the time period is included. Alkaline Phosphatase 65 46 - 116 U/L [facility] 09/02/2024 3:00 AM EST 09/03/2024 1:52 PM EST Raoul Dooley MD LAB BLOOD ORDERABLES Final Re sult Performing Organization Address [facility] de Phone Number [facility] [address] [place] [address] * Magnesium (09/02/2024 3:00 AM EST) Only the most recent of3 resultswithin the time period is included. Magnesium 2.3 1.9 - 2.7 mg/dL [facility] 09/02/2024 3:00 AM EST 09/03/2024 1:52 PM EST Raoul Dooley MD LAB BLOOD ORDERABLES Final Re sult Performing Organization Address [facility] de Phone Number [facility] [address] [place] [address] * (ABNORMAL) Lactate dehydrogenase (09/02/2024 3:00 AM EST) Only the most recent of3 resultswithin the time period is included. LDH 297(H) 120 - 246 U/L [facility] 09/02/2024 3:0 0 AM EST 09/03/2024 1:52 PM EST Raoul Dooley MD LAB BLOOD ORDERABLES Final Re sult Performing Organization Address [facility] de Phone Number [facility] [address] [place] [address] * Glucose, random (09/02/2024 3:00 AM EST) Only the most recent of3 resultswithin the time period is included. Glucose 90 74 - 109 mg/dL [facility] 09/02/2024 3:00 AM EST 09/03/2024 1:52 PM EST Raoul Dooley MD LAB BLOOD ORDERABLES Final Re sult Performing Organization Address [facility] Phone Number [facility] [address] [place] [address] * (ABNORMAL) Ferritin (09/02/2024 3:00 AM EST) Only the most recent of3 resultswithin the time period is included. Ferritin 1,071(H) 10 - 291 ng/mL [facility] 09/02/2024 3:00 AM EST 09/03/2024 1:52 PM EST Raoul Dooley MD LAB BLOOD ORDERABLES Final Re sult Performing Organization Address [facility] Phone Number [facility] [address] [place] [address] * (ABNORMAL) Creatinine, serum (09/02/2024 3:00 AM EST) Only the most recent of3 resultswithin the time period is included. Creatinine 10.55(H) 0.55 - 1.02 mg/dL [facility] 09/02/2024 3:00 AM EST 09/03/2024 1:52 PM EST Raoul Dooley MD LAB BLOOD ORDERABLES Final Re sult Performing Organization Address [facility]/ZIP Co de Phone Number [facility] [address] [place] [address] * (ABNORMAL) Bilirubin, total (09/02/2024 3:00 AM EST) Only the most recent of3 resultswithin the time period is included. Total Bilirubin 0.2(L) 0.3 - 1.2 mg/dL [facility] 09/02/2024 3:00 AM EST 09/03/2024 1:52 PM EST Raoul Dooley MD LAB BLOOD ORDERABLES Final Re sult Performing Organization Address [facility] Co de Phone Number [facility] [address] [place] [address] * (ABNORMAL) Electrolyte panel (09/02/2024 3:00 AM EST) Only the most recent of3 resultswithin the time period is included. Sodium 132(L) 136 - 145 mEq/L [facility] Potassium 6.0(H) 3.4 - 5.0 mEq/L [facility] Chloride 94(L) 98 - 107 mEq/L [facility] Bicarbonate (CO2) 25 21 - 31 mEq/L [facility] Anion Gap 13 3 - 14 mEq/L [facility] 09/02/2024 3:00 AM EST 09/03/2024 1:52 PM EST Raoul Dooley MD LAB BLOOD ORDERABLES Final Re sult Performing Organization Address City/[facility] Co de Phone Number [facility] [address] [place] [address] * Collection Date (08/26/2024 3:00 AM EST) Only the most recent of2 resultswithin the time period is included. Collection Date See Comment [facility] Comment: Patient sample received may exceed specimen stability, based on the collection date electronically provided. ??When reviewing patient results, verify collection information and consider specimen stability before acting on any critical or panic results. 08/26/2024 3:00 AM EST us Raoul Dooley MD LAB [id number] SOLICITED RESULTS Final Result Performing Organization Address [facility] de Phone Number [facility] [address] [place] [address] * Potassium (08/26/2024 3:00 AM EST) Only the most recent of11 resultswithin the time period is included. Potassium 4.6 3.4 - 5.0 mEq/L [facility] 08/26/2024 3:00 AM EST 08/29/2024 1:08 PM EST us Raoul Dooley MD LAB BLOOD ORDERABLES Final Re sult Performing Organization Address [facility] de Phone Number [facility] [address] [place] [address] * Confirmation Test HCV (08/05/2024 3:00 AM EST) Hep C Ab Confirmation Not needed [facility] 08/05/2024 3:00 AM EST 08/08/2024 1:53 PM EST us Raoul Dooley MD LAB BLOOD ORDERABLES Final Re sult Performing Organization Address [facility] de Phone Number [facility] [address] [place] [address] * HEPATITIS C ABS W/REFLEX RNA DETECTR (08/05/2024 3:00 AM EST) Hep C Virus Ab Non-Reacti ve Non-Reacti ve [facility] 08/05/2024 3:00 AM EST 08/08/2024 1:42 PM EST us Raoul Dooley MD LAB [id number] SOLICITED RESULTS Final Result Performing Organization Address [facility] de Phone Number [facility] [address] [place] [address] * Aluminum level (08/05/2024 3:00 AM EST) Only the most recent of2 resultswithin the time period is included. [facility] Aluminum 7 1 - 20 ug/L [facility] 08/05/2024 3:00 AM EST 08/08/2024 2:05 PM EST Raoul Dooley MD LAB BLOOD ORDERABLES Final Re sult Performing Organization Address [facility] de Phone Number [facility] [address] [place] [address] * (ABNORMAL) Hepatitis B Surface Antibody (08/05/2024 3:00 AM EST) [facility] Hep B Surface Antibody <4(A) mIU/mL [facility] Comment: Interpretation: <10: No Immunity >=10: Probable Immunity 08/05/2024 3:00 AM EST 08/08/2024 1:42 PM EST Raoul Dooley MD LAB BLOOD ORDERABLES Final Re sult Performing Organization Address [facility] de Phone Number [facility] [address] [place] [address] * (ABNORMAL) CBC (08/05/2024 3:00 AM EST) [facility] White Blood Cells 3.4(L) 4.0 - 10.0 K/uL [facility] Comment:Verified by repeat a nalysis RBC 2.49(L) 3.93 - 5.22 M/uL [facility] Hgb 7.7(L) 11.2 - 15.7 g/dL [facility] Hematocrit 24.0(L) 34.1 - 44.9 % [facility] MCV 96.4(H) 79.4 - 94.8 fL [facility] MCH 30.9 25.6 - 32.2 pg [facility] MCHC 32.1(L) 32.2 - 35.5 g/dL [facility] Platelets 274 182 - 369 K/uL [facility] RDW 13.3 11.7 - 14.4 % [facility] Hemoglobin x 3 23.1(L) 33.6 - 47.1 g/dL [facility] 08/05/2024 3:00 AM EST 08/08/2024 1:53 PM EST Raoul Dooley MD LAB BLOOD ORDERABLES Final Re sult Performing Organization Address [facility] de Phone Number [facility] [address] [place] [address] * Uric Acid (08/05/2024 3:00 AM EST) Uric Acid 6.6 2.3 - 6.6 mg/dL [facility] 08/05/2024 3:00 AM EST 08/08/2024 1:42 PM EST Raoul Dooley MD LAB BLOOD ORDERABLES Final Re sult Performing Organization Address [facility] de Phone Number [facility] [address] [place] [address] * PTH, Intact (08/05/2024 3:00 AM EST) PTH, Intact 182 160 - 721 pg/mL [facility] Comment: Suggested (KDIGO) ESRD maintenance range is two to nine times the upper normal limit (80.1 pg/mL) for the laboratory. 08/05/2024 3:00 AM EST 08/08/2024 1:42 PM EST Raoul Dooley MD LAB BLOOD ORDERABLES Final Re sult Performing Organization Address [facility] de Phone Number [facility] [address] [place] [address] * (ABNORMAL) Lipid panel (08/05/2024 3:00 AM EST) Cholesterol 140 <200 mg/dL [facility] Comment: Optimal: ?<200 Borderline: ? 200-239 Higher Risk: ?>239 Triglycerides 104 <150 mg/dL [facility] Comment: Optimal: ?<150 Borderline High: ??150-199 High: ? 200-499 Very High: ?>499 HDL 46(A) >59 mg/dL [facility] Comment: Desirable: ?>59 Higher Risk: ?<40 LDL-Calc 73 <100 mg/dL [facility] Comment: Optimal: ?<100 Above Optimal: ?100-129 Borderline High: ??130-159 High: ? 160-189 Very High: ?>189 VLDL Cholesterol Hany 21 <30 mg/dL [facility] Comment: Optimal: ?<30 Borderline High: ??30-39 High: ? 40-99 Very High: ?>99 Chol/HDL Ratio 3.0 <3.3 [facility] Comment: Optimal: ?<3.3 Higher Risk: ?>6.2 08/05/2024 3:00 AM EST 08/08/2024 1:42 PM EST us Raoul Dooley MD LAB BLOOD ORDERABLES Final Re sult [facility] [address] [place] [address] from Last 3 Months Insurance [place]
[2024-09-24 10:10] LABS: VBG Base Excess -1.5 mmol/L; VBG HCO3 19 mmol/L (22-26); VBG pCO2 21 mmHg; VBG pH 7.57 (7.32-7.43); VBG pO2 46 mmHg
[2024-09-24 10:11] LABS: Venous Blood Gas Refer to POC result
[2024-09-24] MEDS: HYDROmorphone HCl 0.5 MG/0.5 ML SYRINGE IVPUSH ×2 (10:13→11:06)
[2024-09-24] MEDS: cefTRIAXone sodium 1 GM VIAL IVPUSH (10:13)
[2024-09-24 10:22] LABS: SLIDE REVIEW VERIFIED
--- NOTE | 2024-09-24 10:27 | ED_ITS ---
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 She comes to our ED today after a friend or body shop technician called after trying to admin methadone dose this AM. They found the patient altered, R sided gaze, covered in feces and vomit. She has track thomas and signs of bruising all over the body. On arrival to the ED she is altered, agitated, HR in 160s with evident widening of QRS on tele and peaked t waves. BS 79 in our ED MD complaint: altered mental status Onset (ago): unknown Timing confirmed by: caregiver Severity: severe Context: drug abuse Associated symptoms: denies other symptoms Related Data Home Medications ?Medication ?Instructions ?Recorded ?Confirmed amlodipine 5 mg tablet 5 mg PO DAILY 09/24/24 09/24/24 carvedilol 6.25 mg tablet 6.25 mg PO BID 09/24/24 09/24/24 methadone 10 mg/mL oral concentrate 55 mg PO DAILY 09/24/24 sevelamer carbonate 800 mg tablet 800 mg PO TIDWM 09/24/24 09/24/24 sodium zirconium cyclosilicate 10 10 g PO SUTUTHSA 09/24/24 09/24/24 gram oral powder packet (Lokelma) Allergies Allergy/AdvReac Type Severity Reaction Status Date / Time No Known Allergies Allergy Verified 09/24/24 09:35 Review of Systems 2 Review of Systems: ROS unable to be obtained due to altered mental status PMFSH Past Medical History Attestation statement: The following information was validated with the patient. Source: old records reviewed Medical History (Updated 09/24/24 @ 15:27 by Elena Raymond DO) HTN (hypertension) Drug abuse ESRD (end stage renal disease) Social History Social History (Updated 09/24/24 @ 10:54 by Eelna Raymond DO) Alcohol intake: unknown Patient Tobacco Use Status: Tobacco use Unknown Use of substances other than those prescribed or required for medical reasons: Unable to respond Advance Directives: No Advance Directives Information Provided: No Physical Exam ED Vital Signs: Vital Signs - 24 hr 09/24/24 09:36 09/24/24 10:21 09/24/24 11:00 Temperature 99.6 F 99.9 F Pulse Rate 160 H 112 H 112 H Respiratory Rate 20 19 17 Blood Pressure 180/112 H 149/85 H 195/94 H Pulse Oximetry 98 99 100 Oxygen Delivery Method Room Air Room Air Room Air 09/24/24 11:15 09/24/24 11:29 Temperature 100.2 F 100.4 F Pulse Rate 105 H 105 H Respiratory Rate 15 15 Blood Pressure 195/106 H 194/117 H Pulse Oximetry 100 100 Oxygen Delivery Method Room Air Room Air BMI result Body Mass Index 21.1 Appearance: agitated, altered yelling out incomprehensible words. moderate acute distress. Eyes: Pupils dilated to 5mm ENT: Pharynx dry MM contusion noted R forehead. Neck: Normal inspection. Neck supple. CVS: tachycardic heart rate and rhythm. Pulses present Chest wall: no swelling around R port at this time Respiratory: No respiratory distress. Breath sounds diminished in bases Abdomen: Soft and non-tender. Skin: Skin warm and dry. pale skin color. Extremities: pitting areas of edema in upper arms active old and new bruises, track thomas noted Neuro: confused is fighting and moving all extremities, no facial droop noted, she is not making any sense incomprehensible words, she localizes to pain Course Course Course Narrative: BP trending up pending HD I did order IV hydralazine she is getting IV ceftriaxone and vancomycin given fevers and WBC count Reevaluation(s) Reevaluation #1: patient's roommate Isabel Garrett [phone] patient has been missing HD - last went Thursday She goes to [facility] Sister who lives in [place] is her HCP Nica [phone] I spoke to her sister on the phone 2pm she is aware of treatment and plan. Reevaluation #2: GTC seizure 30 seconds postictal given IV ativan 2mg BS 113 roommate states she has had these before but takes no medications Dr. Vasquez aware en-route to the ICU I saw the patient being wheeled out and she looks acutely worse thrashing, moaning, altered not protecting her airway. I asked her transport team to turn around and go back to room 5. I am going to intubate her at this time notified ICU prior to intubation I noted her R chest wall catheter dressing was gone and was told it was due to sweating. I sutured it back into place but I am unsure if it is going to be salveagable she is on versed/propofol/fentanyl plan to admit IV have started nicardipine gtt given her markedly high BPs will repeat CT head given acute chagne Medications Administered Generic Name Dose Route Start Last Admin Trade Name Freq PRN Reason Stop Dose Admin Dextrose 1,000 mls @ 100 mls/hr 09/24/24 12:45 09/24/24 12:49 D10 IVCONT 100 mls/hr .Q10H ANNA MARIE Administration Propofol 1,000 mg in 100 mls @ 0 mls/hr 09/24/24 15:15 09/24/24 15:14 Diprivan IVCONT 50 mcg/kg/min .Q0M ANNA MARIE 14.67 mls/hr Administration Protocol Per Protocol Fentanyl 1,000 mcg in 100 mls @ 0 mls/hr 09/24/24 15:15 09/24/24 15:15 Sublimaze/Ns IVCONT 100 mcg/hr .Q0M ANNA MARIE 10 mls/hr Administration Protocol Per Protocol Nicardipine HCl 25 mg/ Sodium 250 mls @ 0 mls/hr 09/24/24 15:30 09/24/24 16:12 Chloride IVCONT 7.5 mg/hr .Q0M ANNA MARIE 75 mls/hr Titration Protocol Per Protocol Discontinued Medications Generic Name Dose Route Start Last Admin Trade Name Freq PRN Reason Stop Dose Admin Albuterol Sulfate 5 mg 09/24/24 11:34 09/24/24 11:36 Albuterol Sulfate (0.083%) 2.5 Mg/3 Ml Vial.Neb INHALE 09/24/24 11:35 5 mg ONCE ONE Administration Ceftriaxone Sodium 1 gm 09/24/24 09:08 09/24/24 10:13 Ceftriaxone Sodium 1 Gm Vial IVPUSH 09/24/24 09:09 1 gm ONCE ONE Administration Dextrose 25 gm 09/24/24 09:44 09/24/24 09:55 Dextrose 50 % 25 Gm/50 Ml Syringe IVPUSH 09/24/24 09:45 25 gm ONCE ONE Administration Dextrose 25 gm 09/24/24 11:00 09/24/24 11:06 Dextrose 50 % 25 Gm/50 Ml Syringe IVPUSH 09/24/24 11:01 25 gm ONCE ONE Administration Hydralazine HCl 10 mg 09/24/24 11:44 09/24/24 11:52 Hydralazine Hcl 20 Mg/Ml Vial IVPUSH 09/24/24 11:45 10 mg ONCE ONE Administration Protocol Hydralazine HCl 10 mg 09/24/24 12:26 09/24/24 12:16 Hydralazine Hcl 20 Mg/Ml Vial IVPUSH 09/24/24 12:27 10 mg ONCE ONE Administration Protocol Hydromorphone HCl 0.5 mg 09/24/24 09:58 09/24/24 10:13 Hydromorphone Hcl 0.5 Mg/0.5 Ml Syringe IVPUSH 09/24/24 09:59 0.5 mg ONCE ONE Administration Protocol Hydromorphone HCl 0.5 mg 09/24/24 10:33 09/24/24 11:06 Hydromorphone Hcl 0.5 Mg/0.5 Ml Syringe IVPUSH 09/24/24 10:34 0.5 mg ONCE ONE Administration Protocol Calcium Gluconate 2 gm in 100 mls @ 50 mls/hr 09/24/24 09:06 09/24/24 11:55 Calcium Gluconate IV 09/24/24 11:05 Infused ONCE ONE Infusion Vancomycin HCl 1,250 mg/ 250 mls @ 166.667 mls/hr 09/24/24 10:33 09/24/24 12:43 Sodium Chloride IV 09/24/24 12:02 Infused ONCE ONE Infusion Sodium Chloride 250 mls @ 250 mls/hr 09/24/24 10:55 09/24/24 14:36 Ns IV 09/24/24 11:54 Infused .Q1H ONE Infusion Acetaminophen 1,000 mg in 100 mls @ 400 mls/hr 09/24/24 11:45 09/24/24 12:07 Ofirmev IV 09/24/24 11:59 Infused ONCE ONE Infusion Insulin Human Regular 5 unit 09/24/24 09:44 09/24/24 09:54 Insulin Regular, Human 100 Unit/Ml 10 Ml Vial IVPUSH 09/24/24 09:45 5 unit ONCE ONE Administration Lorazepam 2 mg 09/24/24 14:46 09/24/24 14:47 Lorazepam 2 Mg/Ml Vial IVPUSH 09/24/24 14:47 2 mg ONCE ONE Administration Midazolam HCl 6 mg 09/24/24 14:58 09/24/24 15:06 Midazolam Hcl 2 Mg/2 Ml Vial IVPUSH 09/24/24 14:59 6 mg ONCE ONE Administration Propofol 50 mg 09/24/24 15:20 09/24/24 15:11 Propofol 200 Mg/20 Ml Vial IVPUSH 09/24/24 15:21 50 mg ONCE ONE Administration Rocuronium Terrell 50 mg 09/24/24 14:58 09/24/24 15:11 Rocuronium [place] 50 Mg/5 Ml Vial IVPUSH 09/24/24 14:59 50 mg ONCE ONE Administration Sodium Bicarbonate 50 meq 09/24/24 09:06 09/24/24 09:55 Sodium Bicarbonate 8.4% 50 Meq/50 Ml Syringe IVPUSH 09/24/24 09:07 50 meq ONCE ONE Administration Sodium Bicarbonate 50 meq 09/24/24 09:49 09/24/24 09:55 Sodium Bicarbonate 8.4% 50 Meq/50 Ml Syringe IVPUSH 09/24/24 09:50 50 meq ONCE ONE Administration Medical Decision Making Medical Decision Making MDM Narrative: 49 yo female who has 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 We actively saw her qrs widening additional amp of bicarb ordered, repeat BS checked, she is agitated and aggressive with restlessness and dilated pupils I also gave her a total of 1mg dilaudid which improved her symptoms she did not get her methadone this AM. She is to get resendez labs, EKG x 2, repeat BS checks, resendez scan for trauma. I did order empiric antibiotics in case of infection. She will likely need emergent HD - she will likely not tolerate neb or lokelma. she was unstable on arrival emergent long catheter 18G into L IJ with sterile precautions placed as no access was able to be found with US in ext Differential Diagnosis Differential Diagnoses: The differential diagnosis associated with the presentation includes hyperkalemia, IVDA, noncompliance, HTN emergency, opiate withdrawal, endocarditis, lyte abnormallity, uremic encephalopathy Admission/Observation Consideration of admission/observation: Escalation of care including admission/observation considered admit to ICU for emergent HD Consult Healthcare Provider Management of the patient was discussed with: Electric Frying Pan Repairer Lab Data [facility] Lab Attestation statement: I reviewed the patient's lab results. hemoglobin low given slow 2 units of packed RBCs 09/24/24 09:44 09/24/24 09:44 Labs: Lab Results 09/24/24 09/24/24 09/24/24 Range/Units 09:42 09:44 10:04 WBC 18.7 H (4.8-10.8) X10*3/uL RBC 2.39 L (4.20-5.50) X10*6/uL Hgb 6.8 L* (12.0-16.0) g/dl Hct 20.9 L* (37.0-47.0) % MCV 87.4 (80.0-98.0) fL MCH 28.5 (27.0-33.0) pg MCHC 32.5 (31.0-35.0) g/dl RDW 15.7 (11.0-16.0) % Plt Count 356 (160-400) X10*3/uL MPV 10.0 (9.4-12.3) fL Immature Gran % (Auto) 0.8 H (0.0-0.4) % Neut % (Auto) 93.6 H (45-73) % Lymph % (Auto) 3.0 L (20-40) % [place] % (Auto) 2.4 (2-11) % Eos % (Auto) 0.0 (0-4) % Baso % (Auto) 0.2 (0-2) % Lymph # (Auto) 0.6 L (1.2-4.9) X10*3/uL [place] # (Auto) 0.4 (0.1-1.2) X10*3/uL Eos # (Auto) 0.0 (0.0-0.4) X10*3/uL Baso # (Auto) 0.0 (0.0-0.2) X10*3/uL Abs Immat Gran (auto) 0.14 H (0.00-0.03) X10*3/uL Absolute Neuts (auto) 17.5 H (2.0-8.3) x10*3/uL Absolute Nucleated RBC 0.000 (0.0-0.012) X10*3/uL Nucleated RBC % (auto) 0.0 (0.0-0.2) /100WBC Smear Tech's Comments VERIFIED Hold Purple Top PT 12.6 H (10.9-12.4) SEC INR 1.1 (0.9-1.1) VBG pH 7.57 H (7.32-7.43) VBG pCO2 21 mmHg VBG pO2 46 mmHg VBG HCO3 19 L (22-26) mmol/L VBG O2 Saturation TNP VBG Base Excess -1.5 mmol/L Sodium 140 (135-145) mmol/L Potassium 7.3 H* (3.3-5.1) mmol/L Chloride 93 L (96-108) mmol/L Carbon Dioxide 16 L (22-29) mmol/L Anion Gap 38 H (12-20) BUN 103 H (9-16) mg/dL Creatinine 13.63 H* (0.5-1.4) mg/dL Estim Creat Clear Calc 3.6 Estimated GFR 3 POC Glucose 79 (60-115) mg/dL Random Glucose 70 (60-115) mg/dL Lactic Acid 2.4 H* (0.5-2.0) mmol/L Calcium 8.8 (8.4-10.2) mg/dL Magnesium 2.3 (1.6-2.6) mg/dL Total Bilirubin 0.5 (0.0-1.0) mg/dL Direct Bilirubin 0.2 (0.0-0.5) mg/dL AST 18 (5-31) U/L ALT < 6 (0-31) U/L Alkaline Phosphatase 83 (39-117) U/L Ammonia 23 (13-55) umol/L Total Creatine Kinase 360 H (26-140) U/L Troponin I High Sens 195.9 H* (<3.5-17.0) ng/L C-Reactive Protein 3.89 H (< or = 0.50) mg/dL B-Natriuretic Peptide 2222 H (<100) pg/mL Total Protein 6.3 L (6.5-8.0) g/dL Albumin 3.2 L (3.5-5.0) g/dL Lipase 18 (8-78) U/L Procalcitonin 0.99 ng/mL TSH 61.26 H (0.32-4.0) uIU/mL Free T4 0.77 (0.71-1.85) ng/dL Beta HCG, Quant < 2 mIU/mL Salicylates (15-30) mg/dL Acetaminophen (<30) mcg/mL Ethyl Alcohol < 10 mg/dL Blood Type Antibody Screen Crossmatch 09/24/24 09/24/24 09/24/24 Range/Units 10:10 10:15 10:59 WBC (4.8-10.8) X10*3/uL RBC (4.20-5.50) X10*6/uL Hgb (12.0-16.0) g/dl Hct (37.0-47.0) % MCV (80.0-98.0) fL MCH (27.0-33.0) pg MCHC (31.0-35.0) g/dl RDW (11.0-16.0) % Plt Count (160-400) X10*3/uL MPV (9.4-12.3) fL Immature Gran % (Auto) (0.0-0.4) % Neut % (Auto) (45-73) % Lymph % (Auto) (20-40) % [place] % (Auto) (2-11) % Eos % (Auto) (0-4) % Baso % (Auto) (0-2) % Lymph # (Auto) (1.2-4.9) X10*3/uL [place] # (Auto) (0.1-1.2) X10*3/uL Eos # (Auto) (0.0-0.4) X10*3/uL Baso # (Auto) (0.0-0.2) X10*3/uL Abs Immat Gran (auto) (0.00-0.03) X10*3/uL Absolute Neuts (auto) (2.0-8.3) x10*3/uL Absolute Nucleated RBC (0.0-0.012) X10*3/uL Nucleated RBC % (auto) (0.0-0.2) /100WBC Smear Tech's Comments Hold Purple Top SEE NOTE PT (10.9-12.4) SEC INR (0.9-1.1) VBG pH (7.32-7.43) VBG pCO2 mmHg VBG pO2 mmHg VBG HCO3 (22-26) mmol/L VBG O2 Saturation VBG Base Excess mmol/L Sodium (135-145) mmol/L Potassium (3.3-5.1) mmol/L Chloride (96-108) mmol/L Carbon Dioxide (22-29) mmol/L Anion Gap (12-20) BUN (9-16) mg/dL Creatinine (0.5-1.4) mg/dL Estim Creat Clear Calc Estimated GFR POC Glucose 54 L* (60-115) mg/dL Random Glucose (60-115) mg/dL Lactic Acid (0.5-2.0) mmol/L Calcium (8.4-10.2) mg/dL Magnesium (1.6-2.6) mg/dL Total Bilirubin (0.0-1.0) mg/dL Direct Bilirubin (0.0-0.5) mg/dL AST (5-31) U/L ALT (0-31) U/L Alkaline Phosphatase (39-117) U/L Ammonia (13-55) umol/L Total Creatine Kinase (26-140) U/L Troponin I High Sens (<3.5-17.0) ng/L C-Reactive Protein (< or = 0.50) mg/dL B-Natriuretic Peptide (<100) pg/mL Total Protein (6.5-8.0) g/dL Albumin (3.5-5.0) g/dL Lipase (8-78) U/L Procalcitonin ng/mL TSH (0.32-4.0) uIU/mL Free T4 (0.71-1.85) ng/dL Beta HCG, Quant mIU/mL Salicylates < 5.0 L (15-30) mg/dL Acetaminophen < 3 (<30) mcg/mL Ethyl Alcohol mg/dL Blood Type A Positive Antibody Screen NEGATIVE Crossmatch See Detail Independent Interpretation I performed an independent interpretation of an: EKG, Plain X-Ray (no edema) and CT Scan Interpretation: Rate: 172 Rhythm: wide complex tachycardia [place]: left wide QRS complex. ST T wave : T waves peaked, artifact but no NARCISA qTC: 517 prior studies: no prior The study has been interpreted contemporaneously by me. EKG #2 Rate: 111 Rhythm: sinus tach [place]: normal Normal P waves. Normal KELLY. Normal QRS complex. ST T wave : t waves still slightly peaked no NARCISA qTC: 465 prior studies: improved after initial The study has been interpreted contemporaneously by me. . Radiology Impression Discussion of test interpretation with radiology: I have reviewed the radiologist's reading. Independent Historian Clinical information obtained from an independent historian. History obtained from or confirmed by: EMS External Record Review External record reviewed: Outpatient record Procedures Procedure Narrative Procedure Narrative: used betadine to cleanse area sutured x 1 with 3-0 stitch with tegaderm dressing in place EJ/Peripheral Line Neck L: Time Out Performed: Yes Size (gauge): 18 IV Secured and Dressing Applied: Yes Patient Tolerated Procedure: well and no complications Intubation Intubation Type:: Endotracheal Tube Insertion Intubation Date:: 09/24/24 Time out performed: Yes sedative: Versed Mg Given: 6 paralytic: Rocuronium Mg Given: 50 Laryngoscope: fiber optic video scope ET Tube Size: 7.5 ET Tube Uncuffed: Yes Tube Secured Depth (cm): 21 Tube Secured Location: teeth Tube Placement Confirmation: visualized tube passing through cords Patient Tolerated Procedure: well and no complications Intubation Complications: none Additional Comments: UNABLE TO PASS OG TUBE RESISTANCE FELT EACH TIME intubation peformed by Dez Branch DO with my constant bedside attendance/supervision Critical Care Time Critical Care Time Critical Care Time: Yes Total Critical Care Time: 120 Attestation: consults, review of records, emergent therapy of elevated K+ and EKG changes, anemia and blood transfusion I attest to this time spent taking care of the patient Discharge Plan Discharge Clinical Impression: Delirium due to general medical condition, Acute hyperkalemia, Acute uremia, Acute electrocardiogram changes, Acute anemia, Seizure Patient Disposition: Admitted As Inpatient Interventions: Admission Worksheet (ED) Last Done: 09/24/24 13:34 Discharge Date/Time: 09/24/24 16:19
[2024-09-24 10:41] LABS: Ammonia 23 umol/L (13-55)
[2024-09-24 10:47] LABS: B Type Natriuretic Peptide 2222 pg/mL (<100)
[2024-09-24 10:54] LABS: Acetaminophen LAB < 3 mcg/mL (<30); Salicylate < 5.0 mg/dL (15-30)
[2024-09-24 10:54] LABS: HCG Quantitative < 2 mIU/mL; TSH reflex Free T4 61.26 uIU/mL (0.32-4.0)
[2024-09-24 10:56] LABS: Alanine Aminotransferase < 6 U/L (0-31); Albumin Level 3.2 g/dL (3.5-5.0); Alkaline Phosphatase 83 U/L (39-117); Anion Gap 38 (12-20); Aspartate Amino Transferase 18 U/L (5-31); Bilirubin Direct 0.2 mg/dL (0.0-0.5); Bilirubin Total 0.5 mg/dL (0.0-1.0); Blood Urea Nitrogen 103 mg/dL (9-16); C Reactive Protein 3.89 mg/dL (< or = 0.50); Calcium 8.8 mg/dL (8.4-10.2); Carbon Dioxide 16 mmol/L (22-29); Chloride 93 mmol/L (96-108); Creatinine Clr Calc Pharmacy 3.6; Estimated Glomerular Filt Rate 3; Ethanol < 10 mg/dL; Glucose Random 70 mg/dL (60-115); Lipase 18 U/L (8-78); Magnesium 2.3 mg/dL (1.6-2.6); Potassium 7.3 mmol/L (3.3-5.1); Procalcitonin 0.99 ng/mL; Sodium 140 mmol/L (135-145); Total Protein 6.3 g/dL (6.5-8.0)
[2024-09-24 10:57] LABS: Lactic Acid 2.4 mmol/L (0.5-2.0); Troponin-I High Sensitivity 195.9 ng/L (<3.5-17.0)
[2024-09-24 11:03] LABS: Glucose, Whole Blood 54 mg/dL (60-115)
[2024-09-24] MEDS: vancomycin HCL 1,250 MG in 0.9 % Sodium Chloride 250 ML 166.67 MG IV (11:13)
--- NOTE | 2024-09-24 11:15 | MHC.EDTECH ---
This patient is a dialysis patient so there may be little to know urine to collect but will keep checking. RN Aware
--- NOTE | 2024-09-24 11:26 | PC.NURSE ---
Vancomycin & Calcium Gluconate infusing via IJ to left side of neck (18g IV access) that was placed by provider prior to start of this RN's shift. Report received from Darya Jang RN. Plan to initiate blood transfusion. Patient has patent IV access to left IJ (18g) and left bicep (20g). POC Glucose 54 at 11:00am, given D50 as ordered by Dr. Raymond. Soft restraints applied to bilateral upper extremities by Darya RN to prevent removal of medical devices. Patient is not responsive to commands, non-verbal/altered mental status at this time. Patient is not known to MD Aretha reviewing history from [facility]. Patient receives dialysis per RN. Temp-sensing dexter in place, no urine output at this time, hospitalist & MD aware. Current temperature 100.[address] Raymond signed blood transfusion consent form due to patient's altered mental status. BB Band #[id number] to left wrist.
--- NOTE | 2024-09-24 11:32 | P.HPCC_ITS ---
History of Present Illness Date of Service: 09/24/24 Chief Complaint: Alteration of mental status 49-year-old lady with underlying end-stage renal disease secondary to amyloidosis, polysubstance abuse, on methadone, hypertension, noncompliance brought in after being found by rn first assist altered. On ER evaluation patient with significant hyperkalemia, elevated renal indices, and widening QRS. QRS improved with administration of bicarbonate. Nephrology service consulted for emergent hemodialysis. Patient admitted to the intensive care unit. Review of Systems 2 Review of Systems: Yes Unobtainable due to mental status Neurologic: Reports confusion Psychiatric: Psychiatric: Reports confusion [facility] Past Medical History Medical History (Updated 09/24/24 @ 11:35 by Carlton Vasquez MD) HTN (hypertension) Drug abuse ESRD (end stage renal disease) Social History Social History (Updated 09/24/24 @ 10:54 by Elena Raymond DO) Alcohol intake: unknown Patient Tobacco Use Status: Tobacco use Unknown Use of substances other than those prescribed or required for medical reasons: Unable to respond Advance Directives: No Advance Directives Information Provided: No Meds Allergies Allergy/AdvReac Type Severity Reaction Status Date / Time No Known Allergies Allergy Verified 09/24/24 09:35 Active Medications: Current Medications Vancomycin HCl 1,250 mg/ (Sodium Chloride) 250 mls @ 166.667 mls/hr IV ONCE ONE Stop: 09/24/24 12:02 Last Admin: 09/24/24 11:13 Dose: 166.67 mls/hr Sodium Chloride (Ns) 250 mls @ 250 mls/hr IV .Q1H ONE Stop: 09/24/24 11:54 Physical Exam 2 Vital Signs: Vital Signs: Last Vital Signs Temp 99.9 F 09/24/24 10:21 Pulse 112 H 09/24/24 10:21 Resp 19 09/24/24 10:21 BP 149/85 H 09/24/24 10:21 Pulse Ox 99 09/24/24 10:21 O2 Del Method Room Air 09/24/24 10:21 BMI result Body Mass Index 21.1 Const: General: no acute distress and confusion Nutritional Appearance: m alnourished Orientation/consciousness: confusion Eyes: Sclerae: sclerae normal EOM: EOMs intact bilaterally Neck: Neck: Yes no lymphadenopathy, Yes trachea midline and Yes supple Resp: Effort & Inspection: normal respiratory effort and no respiratory distress Auscultation: clear to auscultation bilaterally Cardio: Rate: tachycardic Rhythm: regular rhythm Heart sounds: no gallops, no murmurs and no rubs GI: Palpation (GI): Soft to palpation and Other GI palpation findings present ( Nontender) Auscultation: normal bowel sounds Neuro: General: confusion Extrem: General: Yes no pedal edema, No clubbing and No cyanosis Results Labs 09/24/24 09:44 09/24/24 09:44 Labs: Laboratory Results - last 24 hr 09/24/24 09/24/24 09/24/24 09:42 09:44 10:04 MCV 87.4 MCH 28.5 MCHC 32.5 RDW 15.7 Plt Count 356 MPV 10.0 Immature Gran % (Auto) 0.8 H Neut % (Auto) 93.6 H Lymph % (Auto) 3.0 L [place] % (Auto) 2.4 Eos % (Auto) 0.0 Baso % (Auto) 0.2 Lymph # (Auto) 0.6 L [place] # (Auto) 0.4 Eos # (Auto) 0.0 Baso # (Auto) 0.0 Abs Immat Gran (auto) 0.14 H Absolute Neuts (auto) 17.5 H Absolute Nucleated RBC 0.000 Nucleated RBC % (auto) 0.0 Smear Tech's Comments VERIFIED Hold Purple Top PT 12.6 H INR 1.1 VBG pH 7.57 H VBG pCO2 21 VBG pO2 46 VBG HCO3 19 L VBG Base Excess -1.5 Anion Gap 38 H Estim Creat Clear Calc 3.6 Estimated GFR 3 POC Glucose 79 Random Glucose 70 Lactic Acid 2.4 H* Calcium 8.8 Magnesium 2.3 Total Bilirubin 0.5 Direct Bilirubin 0.2 AST 18 ALT < 6 Alkaline Phosphatase 83 Ammonia 23 Total Creatine Kinase 360 H C-Reactive Protein 3.89 H B-Natriuretic Peptide 2222 H Total Protein 6.3 L Albumin 3.2 L Lipase 18 Procalcitonin 0.99 TSH 61.26 H Beta HCG, Quant < 2 Salicylates Acetaminophen Ethyl Alcohol < 10 Blood Type Antibody Screen Crossmatch 09/24/24 09/24/24 09/24/24 10:10 10:15 10:59 MCV MCH MCHC RDW Plt Count MPV Immature Gran % (Auto) Neut % (Auto) Lymph % (Auto) [place] % (Auto) Eos % (Auto) Baso % (Auto) Lymph # (Auto) [place] # (Auto) Eos # (Auto) Baso # (Auto) Abs Immat Gran (auto) Absolute Neuts (auto) Absolute Nucleated RBC Nucleated RBC % (auto) Smear Tech's Comments Hold Purple Top SEE NOTE PT INR VBG pH VBG pCO2 VBG pO2 VBG HCO3 VBG Base Excess Anion Gap Estim Creat Clear Calc Estimated GFR POC Glucose 54 L* Random Glucose Lactic Acid Calcium Magnesium Total Bilirubin Direct Bilirubin AST ALT Alkaline Phosphatase Ammonia Total Creatine Kinase C-Reactive Protein B-Natriuretic Peptide Total Protein Albumin Lipase Procalcitonin TSH Beta HCG, Quant Salicylates < 5.0 L Acetaminophen < 3 Ethyl Alcohol Blood Type A Positive Antibody Screen NEGATIVE Crossmatch See Detail Assessment and Plan (1) ESRD (end stage renal disease): Status: Acute (2) Acute hyperkalemia: Status: Acute (3) Acute uremia: Status: Acute (4) Delirium due to general medical condition: Status: Acute Plan Assessment: 49-year-old lady with underlying polysubstance abuse, ESRD, and treatment noncompliance admitted with hyperkalemia/[place] alteration of mental status and likely polysubstance intoxication Plan: Neuro: Acute encephalopathy, metabolic and/or toxic. Expect to improve after hemodialysis. Cardiac: Dysrhythmia secondary to missing hemodialysis. QRS improved with bicarbonate Pulmonary: No acute issues. Renal: ESRD with poor compliance with hemodialysis. Nephrology consulted for emergent hemodialysis. Endo: No acute issues. GI: No acute issues. ID: Empiric broad-spectrum antibiotic Heme/Onc: No acute issues. Psych: No acute issues. Miscellaneous: No acute issues. Prophylaxis: Heparin Diet: NPO Critical care time spent: 45 minutes
[2024-09-24] MEDS: Albuterol Sulfate (0.083%) 2.5 MG/3 ML VIAL.NEB 5 MG INHALE (11:36)
--- NOTE | 2024-09-24 11:49 | PC.NURSE ---
Vancomycin infusion site changed from 18g in left IJ to 20g in left bicep. 1st unit of RBCs infusing via 18g in left IJ, initiated at 11:42am on 09/24/2024. Mentation unchanged compared to previous assessment. Respiratory therapist initiated treatment, via mask. Care ongoing by this RN.
[2024-09-24 11:52] LABS: Reflex Lactate? Lactic Acid Added
[2024-09-24] MEDS: hydrALAZINE HCl 20 MG/ML VIAL 10 MG IVPUSH ×2 (11:52→12:16)
[2024-09-24] MEDS: Acetaminophen 1,000 MG/100 ML PIGGYBACK 400 MG IV (11:52)
[2024-09-24] MEDS: 0.9 % Sodium Chloride 250 ML IV (11:53)
[2024-09-24 11:59] LABS: Glucose, Whole Blood 75 mg/dL (60-115)
--- NOTE | 2024-09-24 12:19 | PC.NURSE ---
Patient remains hypertensive. notified at 12:16pm. Ordered to give another dose of Hydralazine HCL 10mg IV push. Medicated per orders. Pending ICU bed assignment.
[2024-09-24 12:36] LABS: Glucose, Whole Blood 65 mg/dL (60-115)
[2024-09-24] MEDS: Dextrose 10 % 1,000 ML 100 ML IVCONT ×2 (12:49→22:25)
[2024-09-24 12:54] LABS: Free T4 (Free Thyroxine) 0.77 ng/dL (0.71-1.85)
[2024-09-24 13:14] LABS: Glucose, Whole Blood 76 mg/dL (60-115)
[2024-09-24 13:58] LABS: Glucose, Whole Blood 101 mg/dL (60-115)
--- NOTE | 2024-09-24 14:33 | PC.NURSE ---
Report given to Connie FERGUSON in ICU. Preparing to transport to ICU bed 255. Roommate Isabel Garrett at bedside. States that Methadone dose is 55mg at [facility].
[2024-09-24] MEDS: LORazepam 2 MG/ML VIAL IVPUSH ×2 (14:47→20:03)
[2024-09-24 14:51] LABS: Glucose, Whole Blood 133 mg/dL (60-115)
[2024-09-24] MEDS: Midazolam HCl 2 MG/2 ML VIAL 6 MG IVPUSH (15:06)
[2024-09-24] MEDS: Rocuronium Bromide 50 MG/5 ML VIAL IVPUSH (15:11)
[2024-09-24] MEDS: propofoL 200 MG/20 ML VIAL 50 MG IVPUSH (15:11)
[2024-09-24] MEDS: propofoL 1,000 MG/100 ML VIAL 14.67 MG IVCONT ×2 (15:14→18:52)
[2024-09-24] MEDS: fentaNYL citrate/NS 1,000 MCG/100 ML PLAST..BAG 10 MCG IVCONT (15:15)
[2024-09-24] MEDS: niCARdipine HCL 25 MG in 0.9 % Sodium Chloride 240 ML 50 MG IVCONT (15:25)
--- NOTE | 2024-09-24 15:47 | PHA.MEDREC ---
Addendum entered by Daphney Cummings [facility] 09/24/24 16:15: Reviewed by pharmacist Original Note: Pharmacy Consult ? Medication Reconciliation Pharmacy has completed the medication reconciliation. Spoke with patient roommate over the phone. She did not know a lot about her meds. She knew patient has methadone 55 mg take home bottles from [facility] in [place], she did not get dosed this morning. She reports she uses advil occasionally. She has been using imodium sparingly recently due to issues with diarrhea. Used claim history to confirm other medications.
--- NOTE | 2024-09-24 16:10 | PC.NURSE ---
While this RN was in another patient's room, I was notified that the patient began seizing. Seizure was not witnessed by this RN. Medicated by Guanako Gilmore RN with Ativan. Dr. Raymond was also called to bedside. Seizure stopped. While this RN was transporting patient from ED to ICU, patient began seizing again and was returned to room ED 5 for intubation. ICU was updated by this RN once intubated. Intubated 7.5 tube, 22cm at the lip by Dr. Branch in ED with color change. Medications given as ordered (see EMAR for more details). BP cuff placed to left thigh due to right upper arm BP not reading. Hypertensive. Dialysis catheter to right chest sutured by at bedside, covered with tegaderm. Xray obtained to confirm placement. ICU aware of this. Patient's temperature rising after seizure from 100.0+ F to 103.0+ F range via temperature sensing dexter catheter. Head CT also obtained to rule out brain bleed/other injury from seizure activity. Transported to ICU by this RN with respiratory therapist & welder 2nd shiftTech. Rosales (JUICE PACKAGING MACHINES SETTER) assumes care of this patient in room 255 at this time.
[2024-09-24 16:27] LABS: ABG Base Excess 0.4 mmol/L; ABG HCO3 21 mmol/L (22-26); ABG pCO2 22 mmHg (32-45); ABG pH 7.57 (7.35-7.45); ABG pO2 114 mmHg (83-108)
[2024-09-24] MEDS: Piperacillin Sodium/Tazobactam 2.25 GM in 0.9 % Sodium Chloride 50 ML IV ×2 (17:35→23:00)
[2024-09-24] MEDS: Heparin Sodium,Porcine 5,000 UNIT/ML VIAL 5000 UNIT SUBCUT ×2 (17:45→21:35)
[2024-09-24] MEDS: Heparin Sodium,Porcine 5,000 UNIT/ML VIAL 5000 UNIT INTRACATH (17:49)
[2024-09-24 18:06] LABS: Glucose, Whole Blood 110 mg/dL (60-115)
[2024-09-24] MEDS: levETIRAcetam in NaCl (iso-os) 1,000 MG/100 ML PIGGYBACK 400 MG IV (18:40)
--- NOTE | 2024-09-24 19:33 | PC.NURSE ---
Assumed care of patient at 15:50 Pt intubated and sedated in ED prior to transfer to ICU. ET tube is 7.5, 24@lip. Vent settings ACVC26/400/5.0/30%. Pt tolerating vent well with occasional high pressure alarms. Pt is restless with RASS +1, moving legs constantly. Titrated up fentanyl gtt for sedation per protocol. Propofol at max rate @50. Non-behavioral restraints in place per orders Dialysis session started Bladder scan zero for patient. Culver catheter inserted per orders with urine tox ordered. Unable to obtain urine specimen, MD notified. Pt veins difficult to establish IV access. Unable to place a third PIV line for medications ordered. MD notified. Pharmacy states okay to give Keppra 1000 mg IVP over 5+ minutes. 1900: Current IV gtt requirements: Fentanyl @200, Propofol@50, Nicardipine @2.5 (blood pressures improving with dialysis treatment), D10W @100ml/hr. IV Zosyn and IV Keppra given per orders. RN to RN report given to next RN 19:00
[2024-09-24] MEDS: niCARdipine HCL 25 MG in 0.9 % Sodium Chloride 240 ML IVCONT (19:40)
[2024-09-24] MEDS: Chlorhexidine Gluc Oral Rinse 15 ML MOUTHWASH BUCCAL (19:43)
[2024-09-24 19:44] LABS: MANUAL DIFF FLAG NO
[2024-09-24 19:47] LABS: Basophils Percent Auto 0.2 % (0-2); Eosinophils Percent Auto 0.2 % (0-4); Hemoglobin 9.3 g/dl (12.0-16.0); Imm Gran Abs Auto 0.12 X10*3/uL (0.00-0.03); Imm Gran Pct Auto 0.6 % (0.0-0.4); Lymphocytes Absolute Auto 0.8 X10*3/uL (1.2-4.9); Lymphocytes Percent Auto 4.5 % (20-40); Mean Corpuscular HGB Conc 34.4 g/dl (31.0-35.0); Mean Corpuscular Hemoglobin 30.1 pg (27.0-33.0); Mean Corpuscular Volume 87.4 fL (80.0-98.0); Mean Platelet Volume 9.8 fL (9.4-12.3); Monocytes Percent Auto 5.4 % (2-11); Neutrophils Absolute Auto 16.7 x10*3/uL (2.0-8.3); Neutrophils Percent Auto 89.1 % (45-73); Platelet Count 321 X10*3/uL (160-400); Red Blood Count 3.09 X10*6/uL (4.20-5.50); Red Cell Distribution Width 15.3 % (11.0-16.0); White Blood Count 18.8 X10*3/uL (4.8-10.8)
[2024-09-24 19:55] LABS: VBG Base Excess 7.2 mmol/L; VBG HCO3 28 mmol/L (22-26); VBG pCO2 29 mmHg; VBG pH 7.59 (7.32-7.43); VBG pO2 49 mmHg
[2024-09-24 19:55] LABS: Venous Blood Gas Refer to POC result
[2024-09-24 20:02] LABS: ~Lactic Acid-LAB USE ONLY 1.4 mmol/L (0.5-2.0)
[2024-09-24] MEDS: Midazolam HCl 2 MG/2 ML VIAL 4 MG IVPUSH ×2 (20:06→22:41)
[2024-09-24 20:12] LABS: Alanine Aminotransferase < 6 U/L (0-31); Albumin Level 3.8 g/dL (3.5-5.0); Alkaline Phosphatase 94 U/L (39-117); Anion Gap 22 (12-20); Aspartate Amino Transferase 23 U/L (5-31); Bilirubin Total 0.6 mg/dL (0.0-1.0); Blood Urea Nitrogen 28 mg/dL (9-16); Calcium 9.2 mg/dL (8.4-10.2); Carbon Dioxide 24 mmol/L (22-29); Chloride 96 mmol/L (96-108); Creatinine Clr Calc Pharmacy 11.2; Estimated Glomerular Filt Rate 11; Glucose Random 130 mg/dL (60-115); Potassium 3.2 mmol/L (3.3-5.1); Sodium 139 mmol/L (135-145); Total Protein 7.6 g/dL (6.5-8.0)
[2024-09-24] MEDS: fentaNYL citrate/NS 1,000 MCG/100 ML PLAST..BAG 20 MCG IVCONT (20:39)
[2024-09-24 20:46] LABS: ABG Refer to POC result
[2024-09-24] MEDS: Potassium Chloride/H20 10 MEQ/100 ML PIGGYBACK 100 MEQ IV ×2 (21:27→22:32)
[2024-09-24 22:36] LABS: Glucose, Whole Blood 132 mg/dL (60-115)
[2024-09-24] MEDS: Heparin Sodium,Porcine 5,000 UNIT/ML VIAL 5000 UNIT IVPUSH (22:48)
[2024-09-24 22:51] LABS: VBG Base Excess 10.9 mmol/L; VBG HCO3 30 mmol/L (22-26); VBG pCO2 27 mmHg; VBG pH 7.66 (7.32-7.43); VBG pO2 68 mmHg
[2024-09-24 22:51] LABS: Venous Blood Gas Refer to POC result
[2024-09-25] VITALS (42 sets, daily range): BP systolic 113–175; BP diastolic 71–111; PULSE 68–120; RESP 10–24; TEMP 35–38; O2SAT 95–100; BMI 22.3
[2024-09-25] MEDS: fentaNYL citrate/NS 1,000 MCG/100 ML PLAST..BAG 20 MCG IVCONT ×3 (00:04→09:21)
[2024-09-25] MEDS: LORazepam 2 MG/ML VIAL IVPUSH (00:13)
[2024-09-25] MEDS: propofoL 1,000 MG/100 ML VIAL 14.67 MG IVCONT ×4 (00:42→22:50)
[2024-09-25 01:46] LABS: Venous Blood Gas Refer to POC result
[2024-09-25 01:48] LABS: VBG Base Excess 13.6 mmol/L; VBG HCO3 30 mmol/L (22-26); VBG pCO2 16 mmHg; VBG pH 7.88 (7.32-7.43); VBG pO2 185 mmHg
[2024-09-25 02:14] LABS: ABG Base Excess 9.1 mmol/L; ABG HCO3 29 mmol/L (22-26); ABG pCO2 24 mmHg (32-45); ABG pH 7.68 (7.35-7.45); ABG pO2 100 mmHg (83-108)
[2024-09-25] MEDS: levETIRAcetam in NaCl (iso-os) 1,000 MG/100 ML PIGGYBACK 400 MG IV ×2 (03:26→14:13)
[2024-09-25] MEDS: Heparin Sodium,Porcine 5,000 UNIT/ML VIAL 5000 UNIT SUBCUT ×3 (04:40→19:58)
[2024-09-25] MEDS: niCARdipine HCL 25 MG in 0.9 % Sodium Chloride 240 ML IVCONT (05:30)
[2024-09-25] MEDS: Piperacillin Sodium/Tazobactam 2.25 GM in 0.9 % Sodium Chloride 50 ML IV ×4 (05:30→23:06)
[2024-09-25 05:36] LABS: VBG HCO3 27 mmol/L (22-26); VBG pCO2 26 mmHg; VBG pH 7.62 (7.32-7.43); VBG pO2 58 mmHg
[2024-09-25 05:46] LABS: Glucose, Whole Blood 103 mg/dL (60-115)
[2024-09-25 06:34] LABS: MANUAL DIFF FLAG NO
[2024-09-25 06:36] LABS: Basophils Absolute Auto 0.1 X10*3/uL (0.0-0.2); Basophils Percent Auto 0.4 % (0-2); Eosinophils Percent Auto 0.2 % (0-4); Hematocrit 22.2 % (37.0-47.0); Hemoglobin 7.5 g/dl (12.0-16.0); Imm Gran Abs Auto 0.08 X10*3/uL (0.00-0.03); Imm Gran Pct Auto 0.7 % (0.0-0.4); Lymphocytes Absolute Auto 1.6 X10*3/uL (1.2-4.9); Lymphocytes Percent Auto 14.1 % (20-40); Mean Corpuscular HGB Conc 33.8 g/dl (31.0-35.0); Mean Corpuscular Hemoglobin 30.4 pg (27.0-33.0); Mean Corpuscular Volume 89.9 fL (80.0-98.0); Monocytes Absolute Auto 0.9 X10*3/uL (0.1-1.2); Monocytes Percent Auto 8.1 % (2-11); Neutrophils Absolute Auto 8.7 x10*3/uL (2.0-8.3); Neutrophils Percent Auto 76.5 % (45-73); Red Blood Count 2.47 X10*6/uL (4.20-5.50); Red Cell Distribution Width 15.3 % (11.0-16.0); White Blood Count 11.4 X10*3/uL (4.8-10.8)
[2024-09-25 06:41] LABS: Platelet Count 239 X10*3/uL (160-400)
--- NOTE | 2024-09-25 06:41 | PC.NURSE ---
Assumed care 1899. Patient undergoing dialysis, 4L taken?off per Dialysis?RN. Patient intubated/sedated, remains restless and agitated despite fentanyl and propofol?gtts (see SEP), TELEVISION PRODUCTION TECHNICIAN aware. ST on tele, HR 110s-120s. Appreciable edema to bilateral arms and hands. Nicardipine gtt running per SEP to maintain SBP < 160. Patient mechanically ventilated, 7.5 ETT 24 @ lip. See vent assessment for details. Lung sounds clear, diminished?bases. Abdomen soft, flat, active bowel sounds x4, unknown last BM. Temp sensing dexter in place, patient anuric with 0 output. Skin overall intact, extensive diffuse bruising to BLE, and warmth/redness with swelling to BUE. Large bruise to left hip.? 2005: Patient seizing, 2mg ativan and 4mg versed administered per TELEVISION PRODUCTION TECHNICIAN Suzan, see MAR.? 2129: HCP form obtained from [facility]. HCP Nica updated on patient status/plan of care. Per Nica, patient's methadone clinic is [facility] at [address] [place] [address]. Dosage is 55mg a day.? 0000: Redness noted to coccyx during bed bath. See skin note. ? Pressure injury, wound consult placed. [place] foam and barrier cream applied. 0400: Patient notably less restless, appears to be resting comfortably on vent. See pain assessment, Now: Report given to oncoming RN.
[2024-09-25 06:42] LABS: Mean Platelet Volume 10.3 fL (9.4-12.3)
[2024-09-25 07:15] LABS: Alanine Aminotransferase < 6 U/L (0-31); Albumin Level 2.7 g/dL (3.5-5.0); Alkaline Phosphatase 69 U/L (39-117); Anion Gap 18 (12-20); Aspartate Amino Transferase 21 U/L (5-31); Bilirubin Total 0.4 mg/dL (0.0-1.0); Blood Urea Nitrogen 33 mg/dL (9-16); Calcium 7.9 mg/dL (8.4-10.2); Carbon Dioxide 24 mmol/L (22-29); Chloride 95 mmol/L (96-108); Creatinine Clr Calc Pharmacy 7.6; Estimated Glomerular Filt Rate 7; Glucose Random 121 mg/dL (60-115); Magnesium 1.9 mg/dL (1.6-2.6); Phosphorus 4.8 mg/dL (2.7-4.5); Potassium 3.9 mmol/L (3.3-5.1); Sodium 133 mmol/L (135-145); Total Protein 5.4 g/dL (6.5-8.0)
[2024-09-25 08:12] LABS: Venous Blood Gas Refer to POC result
[2024-09-25] MEDS: Dextrose 10 % 1,000 ML 100 ML IVCONT (08:39)
[2024-09-25] MEDS: Famotidine/PF 20 MG/2 ML VIAL IVPUSH (08:41)
[2024-09-25] MEDS: Chlorhexidine Gluc Oral Rinse 15 ML MOUTHWASH BUCCAL ×3 (08:41→19:58)
--- NOTE | 2024-09-25 09:51 | PM.CCPN ---
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 On ER evaluation patient with significant hyperkalemia, elevated renal indices, and widening QRS. QRS improved with administration of bicarbonate. Nephrology service consulted for emergent hemodialysis. Patient admitted to the intensive care unit. Hospital course complicated by seizures and acute agitation requiring intubation ventilatory support. Patient received emergency hemodialysis with improvement in her electrolytes. CT head with no acute intracranial findings. Started Keppra and empiric antibiotics. No acute issues. Critical Care Time (minutes): 60 Physical Exam Vital Signs: Vital Signs: Last Vital Signs Temp 97.9 F 09/25/24 09:00 Pulse 85 09/25/24 09:00 Resp 12 09/25/24 09:00 BP 130/82 09/25/24 09:00 Pulse Ox 100 09/25/24 09:00 O2 Del Method Mechanical Ventil ation 09/25/24 09:00 FiO2 21 09/25/24 09:00 BMI result Body Mass Index 22.3 Const: General: no acute distress and other (Sedated on ventilatory support) Eyes: Sclerae: sclerae normal EOM: EOMs intact bilaterally Neck: Neck: Yes no lymphadenopathy, Yes trachea midline and Yes supple Resp: Effort & Inspection: normal respiratory effort and no respiratory distress Auscultation: clear to auscultation bilaterally Cardio: Rate: regular rate Rhythm: regular rhythm Heart sounds: no gallops, no murmurs and no rubs GI: Palpation (GI): Soft to palpation and Other GI palpation findings present ( Nontender) Auscultation: normal bowel sounds Extrem: General: Yes no pedal edema, No clubbing and No cyanosis Objective Data Labs 09/25/24 06:20 09/25/24 06:20 Labs: Laboratory Results - last 24 hr 09/24/24 09/24/24 09/24/24 09:44 10:04 10:10 WBC 18.7 H RBC 2.39 L Hgb 6.8 L* Hct 20.9 L* MCV 87.4 MCH 28.5 MCHC 32.5 RDW 15.7 Plt Count 356 MPV 10.0 Immature Gran % (Auto) 0.8 H Neut % (Auto) 93.6 H Lymph % (Auto) 3.0 L [place] % (Auto) 2.4 Eos % (Auto) 0.0 Baso % (Auto) 0.2 Lymph # (Auto) 0.6 L [place] # (Auto) 0.4 Eos # (Auto) 0.0 Baso # (Auto) 0.0 Abs Immat Gran (auto) 0.14 H Absolute Neuts (auto) 17.5 H Absolute Nucleated RBC 0.000 Nucleated RBC % (auto) 0.0 Smear Tech's Comments VERIFIED Hold Purple Top SEE NOTE PT 12.6 H INR 1.1 O2 Saturation ABG pH at Pt Temp ABG pCO2 at Pt Temp ABG pO2 at Pt Temp ABG HCO3 ABG Base Excess (Actual) VBG pH 7.57 H VBG pCO2 21 VBG pO2 46 VBG HCO3 19 L VBG O2 Saturation TNP VBG Base Excess -1.5 Sodium 140 Potassium 7.3 H* Chloride 93 L Carbon Dioxide 16 L Anion Gap 38 H BUN 103 H Creatinine 13.63 H* Estim Creat Clear Calc 3.6 Estimated GFR 3 POC Glucose Random Glucose 70 Lactic Acid 2.4 H* Lactic Acid F/U @ 2Hr Calcium 8.8 Phosphorus Magnesium 2.3 Total Bilirubin 0.5 Direct Bilirubin 0.2 AST 18 ALT < 6 Alkaline Phosphatase 83 Ammonia 23 Total Creatine Kinase 360 H Troponin I High Sens 195.9 H* C-Reactive Protein 3.89 H B-Natriuretic Peptide 2222 H Total Protein 6.3 L Albumin 3.2 L Lipase 18 Procalcitonin 0.99 TSH 61.26 H Free T4 0.77 Beta HCG, Quant < 2 Salicylates < 5.0 L Acetaminophen < 3 Ethyl Alcohol < 10 Blood Type Antibody Screen Crossmatch 09/24/24 09/24/24 09/24/24 10:15 10:59 11:55 WBC RBC Hgb Hct MCV MCH MCHC RDW Plt Count MPV Immature Gran % (Auto) Neut % (Auto) Lymph % (Auto) [place] % (Auto) Eos % (Auto) Baso % (Auto) Lymph # (Auto) [place] # (Auto) Eos # (Auto) Baso # (Auto) Abs Immat Gran (auto) Absolute Neuts (auto) Absolute Nucleated RBC Nucleated RBC % (auto) Smear Tech's Comments Hold Purple Top PT INR O2 Saturation ABG pH at Pt Temp ABG pCO2 at Pt Temp ABG pO2 at Pt Temp ABG HCO3 ABG Base Excess (Actual) VBG pH VBG pCO2 VBG pO2 VBG HCO3 VBG O2 Saturation VBG Base Excess Sodium Potassium Chloride Carbon Dioxide Anion Gap BUN Creatinine Estim Creat Clear Calc Estimated GFR POC Glucose 54 L* 75 Random Glucose Lactic Acid Lactic Acid F/U @ 2Hr Calcium Phosphorus Magnesium Total Bilirubin Direct Bilirubin AST ALT Alkaline Phosphatase Ammonia Total Creatine Kinase Troponin I High Sens C-Reactive Protein B-Natriuretic Peptide Total Protein Albumin Lipase Procalcitonin TSH Free T4 Beta HCG, Quant Salicylates Acetaminophen Ethyl Alcohol Blood Type A Positive Antibody Screen NEGATIVE Crossmatch See Detail 09/24/24 09/24/24 09/24/24 12:31 13:10 13:37 WBC RBC Hgb Hct MCV MCH MCHC RDW Plt Count MPV Immature Gran % (Auto) Neut % (Auto) Lymph % (Auto) [place] % (Auto) Eos % (Auto) Baso % (Auto) Lymph # (Auto) [place] # (Auto) Eos # (Auto) Baso # (Auto) Abs Immat Gran (auto) Absolute Neuts (auto) Absolute Nucleated RBC Nucleated RBC % (auto) Smear Tech's Comments Hold Purple Top PT INR O2 Saturation ABG pH at Pt Temp ABG pCO2 at Pt Temp ABG pO2 at Pt Temp ABG HCO3 ABG Base Excess (Actual) VBG pH VBG pCO2 VBG pO2 VBG HCO3 VBG O2 Saturation VBG Base Excess Sodium Potassium Chloride Carbon Dioxide Anion Gap BUN Creatinine Estim Creat Clear Calc Estimated GFR POC Glucose 65 76 101 Random Glucose Lactic Acid Lactic Acid F/U @ 2Hr Calcium Phosphorus Magnesium Total Bilirubin Direct Bilirubin AST ALT Alkaline Phosphatase Ammonia Total Creatine Kinase Troponin I High Sens C-Reactive Protein B-Natriuretic Peptide Total Protein Albumin Lipase Procalcitonin TSH Free T4 Beta HCG, Quant Salicylates Acetaminophen Ethyl Alcohol Blood Type Antibody Screen Crossmatch 09/24/24 09/24/24 09/24/24 14:44 16:24 17:55 WBC RBC Hgb Hct MCV MCH MCHC RDW Plt Count MPV Immature Gran % (Auto) Neut % (Auto) Lymph % (Auto) [place] % (Auto) Eos % (Auto) Baso % (Auto) Lymph # (Auto) [place] # (Auto) Eos # (Auto) Baso # (Auto) Abs Immat Gran (auto) Absolute Neuts (auto) Absolute Nucleated RBC Nucleated RBC % (auto) Smear Tech's Comments Hold Purple Top PT INR O2 Saturation 98.0 ABG pH at Pt Temp 7.57 H ABG pCO2 at Pt Temp 22 L ABG pO2 at Pt Temp 114 H ABG HCO3 21 L ABG Base Excess (Actual) 0.4 VBG pH VBG pCO2 VBG pO2 VBG HCO3 VBG O2 Saturation VBG Base Excess Sodium Potassium Chloride Carbon Dioxide Anion Gap BUN Creatinine Estim Creat Clear Calc Estimated GFR POC Glucose 133 H 110 Random Glucose Lactic Acid Lactic Acid F/U @ 2Hr Calcium Phosphorus Magnesium Total Bilirubin Direct Bilirubin AST ALT Alkaline Phosphatase Ammonia Total Creatine Kinase Troponin I High Sens C-Reactive Protein B-Natriuretic Peptide Total Protein Albumin Lipase Procalcitonin TSH Free T4 Beta HCG, Quant Salicylates Acetaminophen Ethyl Alcohol Blood Type Antibody Screen Crossmatch 09/24/24 09/24/24 09/24/24 19:38 19:46 22:27 WBC 18.8 H RBC 3.09 L D Hgb 9.3 L D Hct 27.0 L D MCV 87.4 MCH 30.1 MCHC 34.4 RDW 15.3 Plt Count 321 MPV 9.8 Immature Gran % (Auto) 0.6 H Neut % (Auto) 89.1 H Lymph % (Auto) 4.5 L [place] % (Auto) 5.4 Eos % (Auto) 0.2 Baso % (Auto) 0.2 Lymph # (Auto) 0.8 L [place] # (Auto) 1.0 Eos # (Auto) 0.0 Baso # (Auto) 0.0 Abs Immat Gran (auto) 0.12 H Absolute Neuts (auto) 16.7 H Absolute Nucleated RBC 0.000 Nucleated RBC % (auto) 0.0 Smear Tech's Comments Hold Purple Top PT INR O2 Saturation ABG pH at Pt Temp ABG pCO2 at Pt Temp ABG pO2 at Pt Temp ABG HCO3 ABG Base Excess (Actual) VBG pH 7.59 H VBG pCO2 29 VBG pO2 49 VBG HCO3 28 H VBG O2 Saturation 81.0 VBG Base Excess 7.2 Sodium 139 Potassium 3.2 L D Chloride 96 Carbon Dioxide 24 Anion Gap 22 H BUN 28 H Creatinine 4.33 H* Estim Creat Clear Calc 11.2 Estimated GFR 11 POC Glucose 132 H Random Glucose 130 H Lactic Acid Lactic Acid F/U @ 2Hr 1.4 Calcium 9.2 Phosphorus Magnesium Total Bilirubin 0.6 Direct Bilirubin AST 23 ALT < 6 Alkaline Phosphatase 94 Ammonia Total Creatine Kinase 470 H Troponin I High Sens C-Reactive Protein B-Natriuretic Peptide Total Protein 7.6 Albumin 3.8 Lipase Procalcitonin TSH Free T4 Beta HCG, Quant Salicylates Acetaminophen Ethyl Alcohol Blood Type Antibody Screen Crossmatch 09/24/24 09/25/24 09/25/24 22:40 01:31 02:10 WBC RBC Hgb Hct MCV MCH MCHC RDW Plt Count MPV Immature Gran % (Auto) Neut % (Auto) Lymph % (Auto) [place] % (Auto) Eos % (Auto) Baso % (Auto) Lymph # (Auto) [place] # (Auto) Eos # (Auto) Baso # (Auto) Abs Immat Gran (auto) Absolute Neuts (auto) Absolute Nucleated RBC Nucleated RBC % (auto) Smear Tech's Comments Hold Purple Top PT INR O2 Saturation 99.0 ABG pH at Pt Temp 7.68 H* ABG pCO2 at Pt Temp 24 L ABG pO2 at Pt Temp 100 ABG HCO3 29 H ABG Base Excess (Actual) 9.1 VBG pH 7.66 H* 7.88 H* VBG pCO2 27 16 VBG pO2 68 185 VBG HCO3 30 H 30 H VBG O2 Saturation 95.0 Not Reportable VBG Base Excess 10.9 13.6 Sodium Potassium Chloride Carbon Dioxide Anion Gap BUN Creatinine Estim Creat Clear Calc Estimated GFR POC Glucose Random Glucose Lactic Acid Lactic Acid F/U @ 2Hr Calcium Phosphorus Magnesium Total Bilirubin Direct Bilirubin AST ALT Alkaline Phosphatase Ammonia Total Creatine Kinase Troponin I High Sens C-Reactive Protein B-Natriuretic Peptide Total Protein Albumin Lipase Procalcitonin TSH Free T4 Beta HCG, Quant Salicylates Acetaminophen Ethyl Alcohol Blood Type Antibody Screen Crossmatch 09/25/24 09/25/24 09/25/24 05:32 05:43 06:20 WBC 11.4 H RBC 2.47 L D Hgb 7.5 L Hct 22.2 L MCV 89.9 MCH 30.4 MCHC 33.8 RDW 15.3 Plt Count 239 D MPV 10.3 Immature Gran % (Auto) 0.7 H Neut % (Auto) 76.5 H Lymph % (Auto) 14.1 L [place] % (Auto) 8.1 Eos % (Auto) 0.2 Baso % (Auto) 0.4 Lymph # (Auto) 1.6 [place] # (Auto) 0.9 Eos # (Auto) 0.0 Baso # (Auto) 0.1 Abs Immat Gran (auto) 0.08 H Absolute Neuts (auto) 8.7 H Absolute Nucleated RBC 0.000 Nucleated RBC % (auto) 0.0 Smear Tech's Comments Hold Purple Top PT INR O2 Saturation ABG pH at Pt Temp ABG pCO2 at Pt Temp ABG pO2 at Pt Temp ABG HCO3 ABG Base Excess (Actual) VBG pH 7.62 H* VBG pCO2 26 VBG pO2 58 VBG HCO3 27 H VBG O2 Saturation 90.0 VBG Base Excess 7.0 Sodium 133 L Potassium 3.9 D Chloride 95 L Carbon Dioxide 24 Anion Gap 18 BUN 33 H Creatinine 6.44 H* Estim Creat Clear Calc 7.6 Estimated GFR 7 POC Glucose 103 Random Glucose 121 H Lactic Acid Lactic Acid F/U @ 2Hr Calcium 7.9 L D Phosphorus 4.8 H Magnesium 1.9 Total Bilirubin 0.4 Direct Bilirubin AST 21 ALT < 6 Alkaline Phosphatase 69 Ammonia Total Creatine Kinase Troponin I High Sens C-Reactive Protein B-Natriuretic Peptide Total Protein 5.4 L Albumin 2.7 L Lipase Procalcitonin TSH Free T4 Beta HCG, Quant Salicylates Acetaminophen Ethyl Alcohol Blood Type Antibody Screen Crossmatch Progress Note: A&P Assessment and plan (1) Seizure: Status: Acute (2) ESRD (end stage renal disease) on dialysis: Status: Acute (3) Acute hyperkalemia: Status: Acute (4) Acute uremia: Status: Acute (5) Substance abuse: Status: Acute Plan Assessment: 49-year-old lady with underlying polysubstance abuse, ESRD, and treatment noncompliance admitted with hyperkalemia, alteration of mental status, seizures and likely polysubstance intoxication requiring intubation and ventilatory support Plan: Neuro: Acute encephalopathy, metabolic and/or toxic. Expect to improve after hemodialysis. Cardiac: Dysrhythmia secondary to missing hemodialysis. QRS improved with bicarbonate. Pulmonary: Intubated for airway protection, continue to titrate off ventilatory support as tolerated. Renal: ESRD with poor compliance with hemodialysis. Continue hemodialysis. Nephrology service care appreciated. Endo: No acute issues. GI: No acute issues. ID: Empiric broad-spectrum antibiotic coverage. Heme/Onc: No acute issues. Psych: No acute issues. Miscellaneous: No acute issues. Prophylaxis: Heparin Diet: NPO Critical care time spent: 45 minutes Quality Stroke Does the patient have a stroke diagnosis?: No VTE Prior VTE?: No VTE Risk Level:: Medical - moderate - high VTE Device Contraindication: Treatment Not Indicated VTE Drug Contraindication: N/A - Med Ordered
[2024-09-25] MEDS: propofoL 1,000 MG/100 ML VIAL 2.93 MG IVCONT (11:15)
[2024-09-25 12:12] LABS: Glucose, Whole Blood 76 mg/dL (60-115)
[2024-09-25 13:08] LABS: Glucose, Whole Blood 74 mg/dL (60-115)
[2024-09-25 17:40] LABS: Glucose, Whole Blood 81 mg/dL (60-115)
--- NOTE | 2024-09-25 18:10 | PC.NURSE ---
Assumed care of patient 0700 Sedation vacation initiated per MD at 10:10AM. Propofol and fentanyl gtts paused. 10:30 Pt opens eyes, MELLO. Does not follow commands. RR increased from vent rate of 12 up to 16. PSV trial started by RT. PSV 6/5.0, 21% Pt assessed Q15 min for following commands. Pt opens eyes to name, makes eye contact for less than 5 seconds, MELLO. Pt unable to follow commands to squeeze hands, move legs/feet to indicate understanding, does not lift head, does not shake head yes/no when cued. 11:10 Per MD resume sedation at lower rate and place on ACVC 12/350/5.0/21%. RT adjusted vent settings. Propofol gtt resumed @10. Sedation adjusted per protocol. Fentanyl gtt resumed for restlessness, RASS +1, frequent yawning 1 unit RBCs administered per MD for decreased H+H. Overall pt maintains vent synchrony but has periods of restlessness, moves legs frequently. No signs of seizure activity this shift. Pt passed 2 bowel movements, incontinent. Aneuric this shift - Culver removed today 10:00 AM Pt turned and repositioned Q2HR. High fall precautions in place. Pt on [employer] turn assist air mattress.
[2024-09-25] MEDS: fentaNYL citrate/NS 1,000 MCG/100 ML PLAST..BAG 12.5 MCG IVCONT (20:02)
[2024-09-25 20:10] LABS: VBG Base Excess 12.3 mmol/L; VBG HCO3 31 mmol/L (22-26); VBG pCO2 26 mmHg; VBG pH 7.69 (7.32-7.43); VBG pO2 99 mmHg
[2024-09-25 20:11] LABS: Basophils Absolute Auto 0.1 X10*3/uL (0.0-0.2); Basophils Percent Auto 0.6 % (0-2); Eosinophils Absolute Auto 0.2 X10*3/uL (0.0-0.4); Eosinophils Percent Auto 1.7 % (0-4); Hematocrit 26.8 % (37.0-47.0); Hemoglobin 8.9 g/dl (12.0-16.0); Imm Gran Abs Auto 0.04 X10*3/uL (0.00-0.03); Imm Gran Pct Auto 0.4 % (0.0-0.4); Lymphocytes Absolute Auto 1.8 X10*3/uL (1.2-4.9); Lymphocytes Percent Auto 19.6 % (20-40); MANUAL DIFF FLAG NO; Mean Corpuscular HGB Conc 33.2 g/dl (31.0-35.0); Mean Corpuscular Volume 90.2 fL (80.0-98.0); Monocytes Absolute Auto 0.7 X10*3/uL (0.1-1.2); Monocytes Percent Auto 7.7 % (2-11); Neutrophils Absolute Auto 6.3 x10*3/uL (2.0-8.3); Platelet Count 205 X10*3/uL (160-400); Red Blood Count 2.97 X10*6/uL (4.20-5.50); Red Cell Distribution Width 14.8 % (11.0-16.0)
[2024-09-25 20:12] LABS: Venous Blood Gas Refer to POC result
[2024-09-25 21:07] LABS: Anion Gap 18 (12-20); Blood Urea Nitrogen 34 mg/dL (9-16); Calcium 7.5 mg/dL (8.4-10.2); Carbon Dioxide 21 mmol/L (22-29); Chloride 96 mmol/L (96-108); Creatinine Clr Calc Pharmacy 7.2; Estimated Glomerular Filt Rate 7; Glucose Random 84 mg/dL (60-115); Magnesium 1.8 mg/dL (1.6-2.6); Phosphorus 6.4 mg/dL (2.7-4.5); Potassium 4.4 mmol/L (3.3-5.1); Sodium 131 mmol/L (135-145)
[2024-09-25 23:51] LABS: Glucose, Whole Blood 73 mg/dL (60-115)
[2024-09-26] VITALS (27 sets, daily range): BP systolic 145–187; BP diastolic 86–115; PULSE 70–99; RESP 12–24; TEMP 34.9–37.1; O2SAT 92–100; BMI 22.6
--- NOTE | 2024-09-26 | ECG_ITS ---
Test Reason : QT INTERVAL Blood Pressure : */* mmHG Vent. Rate : 80 BPM Atrial Rate : 80 BPM P-R Int : 106 ms QRS Dur : 76 ms QT Int : 404 ms P-R-T Axes : 40 -29 20 degrees QTcB Int : 465 ms Sinus rhythm with short DE Otherwise normal ECG When compared with ECG of 24-Sep-2024 10:22, No significant change was found Referred By: Parth Rivera Electronically Signed By: MO DELEON MD
[2024-09-26] MEDS: 0.9 % Sodium Chloride Flush 3 ML SYRINGE IVFLUSH ×4 (00:01→21:09)
[2024-09-26] MEDS: fentaNYL citrate/NS 1,000 MCG/100 ML PLAST..BAG 20 MCG IVCONT ×2 (01:50→06:21)
[2024-09-26] MEDS: levETIRAcetam in NaCl (iso-os) 1,000 MG/100 ML PIGGYBACK 400 MG IV ×2 (02:28→15:38)
[2024-09-26] MEDS: propofoL 1,000 MG/100 ML VIAL 14.67 MG IVCONT (03:44)
[2024-09-26 05:17] LABS: VBG Base Excess 1.4 mmol/L; VBG HCO3 23 mmol/L (22-26); VBG pCO2 27 mmHg; VBG pH 7.53 (7.32-7.43); VBG pO2 68 mmHg
[2024-09-26] MEDS: Heparin Sodium,Porcine 5,000 UNIT/ML VIAL 5000 UNIT SUBCUT ×3 (05:26→20:13)
[2024-09-26 05:29] LABS: MANUAL DIFF FLAG NO
[2024-09-26 05:30] LABS: Basophils Absolute Auto 0.1 X10*3/uL (0.0-0.2); Basophils Percent Auto 0.8 % (0-2); Eosinophils Absolute Auto 0.1 X10*3/uL (0.0-0.4); Eosinophils Percent Auto 1.9 % (0-4); Hemoglobin 8.6 g/dl (12.0-16.0); Imm Gran Abs Auto 0.03 X10*3/uL (0.00-0.03); Imm Gran Pct Auto 0.4 % (0.0-0.4); Lymphocytes Absolute Auto 1.7 X10*3/uL (1.2-4.9); Lymphocytes Percent Auto 24.1 % (20-40); Mean Corpuscular HGB Conc 33.1 g/dl (31.0-35.0); Mean Corpuscular Hemoglobin 29.7 pg (27.0-33.0); Mean Corpuscular Volume 89.7 fL (80.0-98.0); Mean Platelet Volume 10.2 fL (9.4-12.3); Monocytes Absolute Auto 0.5 X10*3/uL (0.1-1.2); Monocytes Percent Auto 6.5 % (2-11); Neutrophils Absolute Auto 4.8 x10*3/uL (2.0-8.3); Neutrophils Percent Auto 66.3 % (45-73); Platelet Count 199 X10*3/uL (160-400); Red Cell Distribution Width 14.6 % (11.0-16.0); White Blood Count 7.2 X10*3/uL (4.8-10.8)
[2024-09-26] MEDS: Piperacillin Sodium/Tazobactam 2.25 GM in 0.9 % Sodium Chloride 50 ML IV (05:31)
[2024-09-26 05:50] LABS: Albumin Level 2.2 g/dL (3.5-5.0); Anion Gap 19 (12-20); Blood Urea Nitrogen 36 mg/dL (9-16); Calcium 7.6 mg/dL (8.4-10.2); Carbon Dioxide 19 mmol/L (22-29); Chloride 97 mmol/L (96-108); Creatinine Clr Calc Pharmacy 6.8; Estimated Glomerular Filt Rate 6; Glucose Random 77 mg/dL (60-115); Magnesium 1.8 mg/dL (1.6-2.6); Phosphorus 6.4 mg/dL (2.7-4.5); Potassium 4.2 mmol/L (3.3-5.1); Sodium 131 mmol/L (135-145)
--- NOTE | 2024-09-26 06:28 | PC.NURSE ---
Upon initial assessment, patient remains intubated/sedated, propofol and fentanyl gtts infusing per MAR. Patient easily emerges from sedation, persistently restless with any stimuli. Moves all extremities non purposefully. Does not follow commands or open eyes. Positive cough, gag, and withdraws from pain. SR/ST on tele, HR 70s-100s. SBP > 160 when agitated. Edema to bilateral upper extremities, R>LUE. Patient remains on mechanical ventilation, size 7.5 ETT 24cm?@ lip. See vent assessment. Abdomen soft and flat, active bowel sounds x4, 1 BM this shift. Patient anuric. Skin to BLE with considerable bruising, and BUE red and warm to touch. ? stage 1 to coccyx, see skin note. Needles foam to coccyx clean dry and intact. Patient resistant to repositioning, becoming agitated and favoring lying to the right side. Overall patient with breakthrough agitation, though no seizure activity noted this shift. Repositioned Q2HR as tolerated, bed locked in lowest position, bed alarm on.?
[2024-09-26] MEDS: Albumin Human 25 % 100 ML IV ×3 (08:00→20:12)
[2024-09-26] MEDS: Famotidine/PF 20 MG/2 ML VIAL IVPUSH (08:01)
[2024-09-26] MEDS: Chlorhexidine Gluc Oral Rinse 15 ML MOUTHWASH BUCCAL (08:01)
--- NOTE | 2024-09-26 08:41 | PM.CCPN ---
Subjective Subjective Date of Service: 09/26/24 Critical Care Time (minutes): 35 Comment: continues to be on ventilator support this morning on fentanyl for analgesia and propofol for sedation Physical Exam Vital Signs: Vital Signs: Last Vital Signs Temp 97.9 F 09/26/24 08:00 Pulse 72 09/26/24 08:00 Resp 12 09/26/24 08:00 BP 153/97 H 09/26/24 08:00 Pulse Ox 99 09/26/24 08:00 O2 Del Method Mechanical Ventil ation 09/26/24 08:00 FiO2 21 09/26/24 08:00 BMI result Body Mass Index 22.6 General: acute distress, ill appearing and tired appearing Nutritional Appearance: poorly built and nourished, underweight Eyes: appearance normal, both eyes and all related structures; Alignment and Position: alignment normal and position normal Neck: No lymphadenopathy, no thyromegaly Resp: bilateral air entry equal, occasional added sounds present Cardio: Regular rate, regular rhythm; Heart sounds: S1 normal heart sound present and S2 normal heart sound present GI: soft, nontender, no guarding, no hepatosplenomegaly : bladder normal to inspection, bladder normal to palpation, no renal angle tenderness Skin: no rashes or lesions noted and elasticity normal Neuro: no focal deficits,moves all extremities Objective Data Labs 09/26/24 04:58 09/26/24 04:58 Labs: Laboratory Results - last 24 hr 09/24/24 09/25/24 09/25/24 10:15 12:05 13:03 WBC RBC Hgb Hct MCV MCH MCHC RDW Plt Count MPV Immature Gran % (Auto) Neut % (Auto) Lymph % (Auto) [place] % (Auto) Eos % (Auto) Baso % (Auto) Lymph # (Auto) [place] # (Auto) Eos # (Auto) Baso # (Auto) Abs Immat Gran (auto) Absolute Neuts (auto) Absolute Nucleated RBC Nucleated RBC % (auto) VBG pH VBG pCO2 VBG pO2 VBG HCO3 VBG O2 Saturation VBG Base Excess Sodium Potassium Chloride Carbon Dioxide Anion Gap BUN Creatinine Estim Creat Clear Calc Estimated GFR POC Glucose 76 74 Random Glucose Calcium Phosphorus Magnesium Albumin Blood Type A Positive Antibody Screen NEGATIVE Crossmatch See Detail 09/25/24 09/25/24 09/25/24 17:28 20:00 20:03 WBC 9.0 RBC 2.97 L D Hgb 8.9 L Hct 26.8 L D MCV 90.2 MCH 30.0 MCHC 33.2 RDW 14.8 Plt Count 205 MPV 10.0 Immature Gran % (Auto) 0.4 Neut % (Auto) 70.0 Lymph % (Auto) 19.6 L [place] % (Auto) 7.7 Eos % (Auto) 1.7 Baso % (Auto) 0.6 Lymph # (Auto) 1.8 [place] # (Auto) 0.7 Eos # (Auto) 0.2 Baso # (Auto) 0.1 Abs Immat Gran (auto) 0.04 H Absolute Neuts (auto) 6.3 Absolute Nucleated RBC 0.000 Nucleated RBC % (auto) 0.0 VBG pH 7.69 H* VBG pCO2 26 VBG pO2 99 VBG HCO3 31 H VBG O2 Saturation 99.0 VBG Base Excess 12.3 Sodium Potassium Chloride Carbon Dioxide Anion Gap BUN Creatinine Estim Creat Clear Calc Estimated GFR POC Glucose 81 Random Glucose Calcium Phosphorus Magnesium Albumin Blood Type Antibody Screen Crossmatch 09/25/24 09/25/24 09/26/24 20:45 23:46 04:58 WBC 7.2 RBC 2.90 L Hgb 8.6 L Hct 26.0 L MCV 89.7 MCH 29.7 MCHC 33.1 RDW 14.6 Plt Count 199 MPV 10.2 Immature Gran % (Auto) 0.4 Neut % (Auto) 66.3 Lymph % (Auto) 24.1 [place] % (Auto) 6.5 Eos % (Auto) 1.9 Baso % (Auto) 0.8 Lymph # (Auto) 1.7 [place] # (Auto) 0.5 Eos # (Auto) 0.1 Baso # (Auto) 0.1 Abs Immat Gran (auto) 0.03 Absolute Neuts (auto) 4.8 Absolute Nucleated RBC 0.000 Nucleated RBC % (auto) 0.0 VBG pH VBG pCO2 VBG pO2 VBG HCO3 VBG O2 Saturation VBG Base Excess Sodium 131 L 131 L Potassium 4.4 4.2 Chloride 96 97 Carbon Dioxide 21 L 19 L Anion Gap 18 19 BUN 34 H 36 H Creatinine 6.75 H* 7.17 H* Estim Creat Clear Calc 7.2 6.8 Estimated GFR 7 6 POC Glucose 73 Random Glucose 84 77 Calcium 7.5 L 7.6 L Phosphorus 6.4 H 6.4 H Magnesium 1.8 1.8 Albumin 2.2 L Blood Type Antibody Screen Crossmatch 09/26/24 05:12 WBC RBC Hgb Hct MCV MCH MCHC RDW Plt Count MPV Immature Gran % (Auto) Neut % (Auto) Lymph % (Auto) [place] % (Auto) Eos % (Auto) Baso % (Auto) Lymph # (Auto) [place] # (Auto) Eos # (Auto) Baso # (Auto) Abs Immat Gran (auto) Absolute Neuts (auto) Absolute Nucleated RBC Nucleated RBC % (auto) VBG pH 7.53 H VBG pCO2 27 VBG pO2 68 VBG HCO3 23 VBG O2 Saturation 94.0 VBG Base Excess 1.4 Sodium Potassium Chloride Carbon Dioxide Anion Gap BUN Creatinine Estim Creat Clear Calc Estimated GFR POC Glucose Random Glucose Calcium Phosphorus Magnesium Albumin Blood Type Antibody Screen Crossmatch Microbiology Microbiology Results: Microbiology 09/24/24 09:44 Blood - Venous Blood Culture - Preliminary No growth after 24 hours. 09/24/24 09:46 Blood - Venous Blood Culture - Preliminary No growth after 24 hours. Progress Note: A&P Assessment and plan (1) Substance abuse: Status: Acute (2) Acute electrocardiogram changes: Status: Acute (3) ESRD (end stage renal disease): Status: Acute (4) ESRD (end stage renal disease) on dialysis: Status: Acute (5) Acute hyperkalemia: Status: Acute (6) Acute anemia: Status: Acute (7) Seizure: Status: Acute Plan Neuro: Acute encephalopathy possibly due to metabolic encephalopathy On propofol for sedation, and fentanyl for analgesia, we will add Precedex to taper sedation for weaning from ventilator Close neurological status monitoring in the ICU every hour we will start methadone at 10mg BID today, will get EKG to look for QT interval alcohol levels negative seizures upon EMS arrival Cardiac: Hypertensive urgency: on cardene drip, given her ESRD we will titrate it down for SBP < 170mmHg Respiratory: Acute hypoxemic respiratory failure due to poor respiratory drive Currently on ventilator support On PRVC mode FiO2 30%, PEEP 5, TV 360 RR 20, we will place the patient on pressor support and we will get the weaning parameters Peak pressures and plateau pressures are under the curve Ventilator management bundle with head end elevation, aspiration precaution, chlorhexidine mouthwash, daily awakening trials, daily spontaneous breathing trials GI: on tube feeds Renal: end-stage renal disease on renal replacement therapy continue hemodialysis sessions as per Nephrology We will closely monitor I's and O's Avoid nephrotoxic medications Heme: Chronic anemia, closely monitor H&H, transfuse for hemoglobin less than 7 grams/deciliter Endocrine: Blood sugars under control Sliding scale insulin as needed Infectious disease: on Zosyn for empiric antibiotic coverage, we will stop given all the cultures are negative Musculoskeletal: Decubitus ulcer prevention protocol Lines: right subclavian PermCath Prophylaxis: heparin, pantoprazole Total critical care time spent is about 35 minutes on ventilator management, sedation management, weaning from ventilator, changing ventilator settings, review of labs and images at this time is excluding any procedural time. Quality Stroke Does the patient have a stroke diagnosis?: No VTE Prior VTE?: No VTE Risk Level:: Medical - moderate - high VTE Device Contraindication: Treatment Not Indicated VTE Drug Contraindication: N/A - Med Ordered
[2024-09-26 08:43] LABS: Venous Blood Gas Refer to POC result
--- NOTE | 2024-09-26 09:14 | P.CONNP_ITS ---
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 On ER evaluation patient with significant hyperkalemia, elevated renal indices, and widening QRS. QRS improved with administration of bicarbonate. Nephrology service consulted for emergent hemodialysis. Patient admitted to the intensive care unit. Had dialysis on 09/24/2024. Tolerated well. Review of Systems Review of Systems Yes Unobtainable due to mental condition PMFSH Past Medical History Medical History (Updated 09/25/24 @ 09:52 by Carlton Vasquez MD) HTN (hypertension) Drug abuse ESRD (end stage renal disease) Social History Social History (Updated 09/24/24 @ 10:54 by Elena Raymond DO) Alcohol intake: unknown Patient Tobacco Use Status: Tobacco use Unknown Use of substances other than those prescribed or required for medical reasons: Unable to respond Currently Displaying Signs/Symptoms of Drug Intoxication Withdrawal: No Advance Directives: Yes Advance Directives Information Provided: No Advance Directives on File: Yes Advance Directives Date on File: 09/25/24 Meds Allergies Allergy/AdvReac Type Severity Reaction Status Date / Time No Known Allergies Allergy Verified 09/24/24 09:35 Active Medications: Current Medications Chlorhexidine Gluconate (Chlorhexidine Gluc Oral Rinse 15 Ml Mouthwash) 15 ml BUCCAL TID [facility] Last Admin: 09/26/24 08:01 Dose: 15 ml Famotidine (Famotidine/Pf 20 Mg/2 Ml Vial) 20 mg IVPUSH DAILY [facility] Last Admin: 09/26/24 08:01 Dose: 20 mg Heparin Sodium (Porcine) (Heparin Sodium,Porcine 5,000 Unit/Ml Vial) 5,000 unit SUBCUT Q8H [facility] Last Admin: 09/26/24 05:26 Dose: 5,000 unit Heparin Sodium (Porcine) (Heparin Sodium,Porcine 5,000 Unit/Ml Vial) 5,000 unit INTRACATH [id number]@[id number] [facility] Piperacillin Sod/Tazobactam (Sod 2.25 gm/ Sodium Chloride) 50 mls @ 100 mls/hr IV Q6H [facility] Last Infusion: 09/26/24 06:01 Dose: Infused Levetiracetam (Keppra) 1,000 mg in 100 mls @ 400 mls/hr IV Q12H [facility] Last Infusion: 09/26/24 02:47 Dose: Infused Fentanyl (Sublimaze/Ns) 1,000 mcg in 100 mls @ 0 mls/hr IVCONT .Q0M [facility]; Protocol Last Admin: 09/26/24 06:21 Dose: 200 mcg/hr, 20 mls/hr Propofol (Diprivan) 1,000 mg in 100 mls @ 0 mls/hr IVCONT .Q0M ANNA MARIE; Protocol Last Admin: 09/26/24 03:44 Dose: 50 mcg/kg/min, 14.67 mls/hr Albumin Human (Kedbumin 25 %) 100 mls @ 100 mls/hr IV Q6H [facility] Stop: 09/27/24 02:59 Last Admin: 09/26/24 08:00 Dose: 100 mls/hr Dexmedetomidine HCl (Precedex) 400 mcg in 100 mls @ 0 mls/hr IVCONT .Q0M [facility]; Protocol Lorazepam (Lorazepam 2 Mg/Ml Vial) 2 mg IVPUSH Q2H PRN PRN Reason: Seizures Last Admin: 09/25/24 00:13 Dose: 2 mg Naloxone HCl (Naloxone Hcl 0.4 Mg/Ml Vial) 0.2 mg IVPUSH Q2M PRN PRN Reason: Excessive sedation or RR < 8 Sodium Chloride (0.9 % Sodium Chloride Flush 3 Ml Syringe) [facility] Last Admin: 09/26/24 07:47 Dose: 3 ml Home Medications ?Medication ?Instructions ?Recorded ?Confirmed ?Last Taken ?Type amlodipine 5 mg tablet 5 mg PO DAILY 09/24/24 09/24/24 Unknown History carvedilol 6.25 mg tablet 6.25 mg PO BID 09/24/24 09/24/24 Unknown History methadone 10 mg/mL oral concentrate 55 mg PO DAILY 09/24/24 Unknown History sevelamer carbonate 800 mg tablet 800 mg PO TIDWM 09/24/24 09/24/24 Unknown History sodium zirconium cyclosilicate 10 10 g PO SUTUTHSA 09/24/24 09/24/24 Unknown History gram oral powder packet (Lokelma) Physical Exam Vital Signs: Last Vital Signs Temp 97.9 F 09/26/24 09:00 Pulse 85 09/26/24 09:00 Resp 15 09/26/24 09:00 BP 153/97 H 09/26/24 09:00 Pulse Ox 100 09/26/24 09:00 O2 Del Method Mechanical Ventilation 09/26/24 09:00 FiO2 21 09/26/24 09:00 BMI result Body Mass Index 22.6 Const: General: no acute distress and confusion Nutritional Appearance: malnourished Orientation/consciousness: confusion Eyes: Sclerae: sclerae normal EOM: EOMs intact bilaterally Neck: Neck: Yes no lymphadenopathy, Yes trachea midline and Yes supple Resp: Effort & Inspection: normal respiratory effort and no respiratory distress Auscultation: clear to auscultation bilaterally Cardio: Rate: tachycardic Rhythm: regular rhythm Heart sounds: no gallops, no murmurs and no rubs GI: Palpation (GI): Soft to palpation and Other GI palpation findings present ( Nontender) Auscultation: normal bowel sounds Neuro: General: confusion Extrem: General: Yes no pedal edema, No clubbing and No cyanosis Results Lab Results 09/26/24 04:58 09/26/24 04:58 Lab results: Chemistry 09/24/24 09/24/24 09/25/24 09:44 19:38 06:20 Sodium 140 139 133 L Potassium 7.3 H* 3.2 L D 3.9 D Carbon Dioxide 16 L 24 24 BUN 103 H 28 H 33 H Creatinine 13.63 H* 4.33 H* 6.44 H* Calcium 8.8 9.2 7.9 L D Phosphorus 4.8 H 09/25/24 09/26/24 20:45 04:58 Sodium 131 L 131 L Potassium 4.4 4.2 Carbon Dioxide 21 L 19 L BUN 34 H 36 H Creatinine 6.75 H* 7.17 H* Calcium 7.5 L 7.6 L Phosphorus 6.4 H 6.4 H Hematology 09/24/24 09/24/24 09/25/24 09:44 19:38 06:20 WBC 18.7 H 18.8 H 11.4 H Hgb 6.8 L* 9.3 L D 7.5 L Plt Count 356 321 239 D 09/25/24 09/26/24 20:00 04:58 WBC 9.0 7.2 Hgb 8.9 L 8.6 L Plt Count 205 199 Assessment and Plan (1) ESRD (end stage renal disease) on dialysis: Status: Acute Plan 49-year-old woman with end stage renal disease admitted with severe anemia and hyperkalemia. Underwent emergency dialysis and 09/24/2024. Currently potassium has normalized. She will arrange for dialysis 3 times a week as per protocol. Epogen to correct anemia. Concur with other medical management per ICU team Procedures Date of Service Date of Service: 09/26/24
--- NOTE | 2024-09-26 10:35 | MHC.CLN ---
PT IS INTUBATED AND SEDATED DISCUSSED AT ROUNDS WITH MD-PLAN TO PLACE OGT AND START TF TODAY RECOMMEND NEPRO AT MAX GOAL RATE 30ML/HR WITH 240ML FWF Q 8 HRS TO PROVIDE 864KCALS (1251KCALS WITH SEDATION; 24KCALS/KG), 39G PROTEIN (.7G/KG), 1348ML TOTAL WATER FROM FORMULA AND FLUSHES (26ML/KG) MONITOR TOLERANCE AND LYTES SEE ALSO FULL CLINICAL NUTRITION ASSESSMENT
--- NOTE | 2024-09-26 11:06 | MHC.SLORD ---
Speech Language Pathology Order Status: Pt intubated, PROGRAM MANAGEMENT INTERN to assess when indicated.
[2024-09-26 11:51] LABS: Influenza A PCR NEGATIVE (Negative); Influenza B PCR NEGATIVE (Negative); Resp Syncy Virus RNA Qual PCR NEGATIVE (Negative); SARS COV2 PCR INHOUSE NEGATIVE (Negative)
--- NOTE | 2024-09-26 13:32 | MHC.CM.PN ---
Pt intubated in ICU: ESRD on HD at home: unknown site/day: Received call from [employer] CLAUS RN: pt is active with them for daily skilled RN visits. Pt also receives Methadone via home delivery. CLAUS RN states pt was independent with care needs prior to admission: other information unknown: Message left for pt's HCP, Nica. CM to follow w/pt on 09/27 once she has extubated.
--- NOTE | 2024-09-26 15:12 | HE.PHANOTE ---
METHADONE Dose: 50mg, last dose at [facility] clinic on 09/21/24 and given 6 take home bottles per Chelsey. Take home bottles should have last patient to 09/27/24.
[2024-09-26 16:16] LABS: Glucose, Whole Blood 80 mg/dL (60-115)
[2024-09-26] MEDS: methADONE HCl 20 MG/2 ML ORAL.CONC 30 MG PO (17:02)
[2024-09-26 17:32] LABS: Glucose, Whole Blood 80 mg/dL (60-115)
[2024-09-26] MEDS: Melatonin 3 MG TABLET 6 MG PO (21:07)
[2024-09-26] MEDS: hydrALAZINE HCl 20 MG/ML VIAL 10 MG IVPUSH (21:07)
[2024-09-26 23:59] LABS: Glucose, Whole Blood 71 mg/dL (60-115)
[2024-09-27] VITALS (22 sets, daily range): BP systolic 140–207; BP diastolic 84–122; PULSE 71–99; RESP 12–22; TEMP 36.4–37.1; O2SAT 95–100; BMI 22.0
[2024-09-27] MEDS: Albumin Human 25 % 100 ML IV (02:03)
[2024-09-27] MEDS: levETIRAcetam in NaCl (iso-os) 1,000 MG/100 ML PIGGYBACK 400 MG IV (02:03)
[2024-09-27 04:42] LABS: MANUAL DIFF FLAG NO
[2024-09-27 04:44] LABS: Basophils Absolute Auto 0.1 X10*3/uL (0.0-0.2); Basophils Percent Auto 0.8 % (0-2); Eosinophils Absolute Auto 0.1 X10*3/uL (0.0-0.4); Eosinophils Percent Auto 1.3 % (0-4); Hematocrit 23.3 % (37.0-47.0); Imm Gran Abs Auto 0.03 X10*3/uL (0.00-0.03); Imm Gran Pct Auto 0.4 % (0.0-0.4); Lymphocytes Absolute Auto 1.1 X10*3/uL (1.2-4.9); Mean Corpuscular HGB Conc 34.3 g/dl (31.0-35.0); Mean Corpuscular Hemoglobin 30.7 pg (27.0-33.0); Mean Corpuscular Volume 89.3 fL (80.0-98.0); Mean Platelet Volume 10.6 fL (9.4-12.3); Monocytes Absolute Auto 0.4 X10*3/uL (0.1-1.2); Monocytes Percent Auto 5.7 % (2-11); Neutrophils Absolute Auto 5.8 x10*3/uL (2.0-8.3); Neutrophils Percent Auto 76.8 % (45-73); Platelet Count 181 X10*3/uL (160-400); Red Blood Count 2.61 X10*6/uL (4.20-5.50); Red Cell Distribution Width 14.4 % (11.0-16.0); White Blood Count 7.5 X10*3/uL (4.8-10.8)
[2024-09-27 05:29] LABS: Alanine Aminotransferase 8 U/L (0-31); Albumin Level 3.6 g/dL (3.5-5.0); Alkaline Phosphatase 73 U/L (39-117); Anion Gap 26 (12-20); Aspartate Amino Transferase 19 U/L (5-31); Bilirubin Total 0.6 mg/dL (0.0-1.0); Blood Urea Nitrogen 44 mg/dL (9-16); Carbon Dioxide 16 mmol/L (22-29); Chloride 96 mmol/L (96-108); Creatinine Clr Calc Pharmacy 5.9; Estimated Glomerular Filt Rate 5; Glucose Random 61 mg/dL (60-115); Potassium 4.8 mmol/L (3.3-5.1); Sodium 133 mmol/L (135-145)
--- NOTE | 2024-09-27 06:12 | PC.NURSE ---
Upon initial assessment at 1999, patient alert and oriented x4, pleasant, occasionally forgetful. Able to follow commands, make needs known, and ring appropriately. Moves all extremities. SR on tele, HR 70s-80s. Lung sounds dim, on room air. Abdomen soft and nontender, bowel sounds auscultated x4. Patient remains anuric. Skin remains bruised to BLE, and redness and edema to BUE. ? stage I vs stage II to coccyx,?barrier cream and pink foam in place. Patient is a 1 assist up to the commode, gait weak and somewhat unsteady. Bed locked in lowest possible position, bed alarm on, avPulmonxs camera in place for safety, call winkler within reach.?
[2024-09-27] MEDS: Famotidine/PF 20 MG/2 ML VIAL IVPUSH (07:58)
[2024-09-27] MEDS: 0.9 % Sodium Chloride Flush 3 ML SYRINGE IVFLUSH ×3 (07:58→21:40)
[2024-09-27] MEDS: methADONE HCl 20 MG/2 ML ORAL.CONC 30 MG PO (08:08)
--- NOTE | 2024-09-27 08:46 | P.PNCC_ITS ---
Subjective Subjective Date of Service: 09/27/24 Critical Care Time (minutes): 35 Comment: No new events overnight, tolerating liberation from ventilator well Physical Exam 2 Vital Signs: Vital Signs: Last Vital Signs Temp 97.8 F 09/27/24 08:00 Pulse 86 09/27/24 08:00 Resp 22 H 09/27/24 08:00 BP 152/93 H 09/27/24 08:00 Pulse Ox 98 09/27/24 08:00 O2 Del Method Room Air 09/27/24 08:00 FiO2 21 09/26/24 12:00 BMI result Body Mass Index 22.0 General: Not in acute distress, Nutritional Appearance: ok nourished and normal weight Eyes: appearance normal, both eyes and all related structures; Alignment and Position: alignment normal and position normal Neck: No lymphadenopathy, no thyromegaly Resp: bilateral air entry equal, occasional added sounds present Cardio: Regular rate, regular rhythm; Heart sounds: S1 normal heart sound present and S2 normal heart sound present GI: soft, nontender, no guarding, no hepatosplenomegaly : bladder normal to inspection, bladder normal to palpation, no renal angle tenderness Skin: no rashes or lesions noted and elasticity normal Neuro: oriented to person, oriented to place, oriented to time and moves all extremities Objective Data Labs 09/27/24 04:30 09/27/24 04:30 Labs: Laboratory Results - last 24 hr 09/24/24 09/26/24 09/26/24 09:44 10:41 12:20 WBC RBC Hgb Hct MCV MCH MCHC RDW Plt Count MPV Immature Gran % (Auto) Neut % (Auto) Lymph % (Auto) [place] % (Auto) Eos % (Auto) Baso % (Auto) Lymph # (Auto) [place] # (Auto) Eos # (Auto) Baso # (Auto) Abs Immat Gran (auto) Absolute Neuts (auto) Absolute Nucleated RBC Nucleated RBC % (auto) Smear Path Review SEE NOTE Sodium Potassium Chloride Carbon Dioxide Anion Gap BUN Creatinine Estim Creat Clear Calc Estimated GFR POC Glucose 80 Random Glucose Calcium Total Bilirubin AST ALT Alkaline Phosphatase Total Protein Albumin Influenza Type A (PCR) NEGATIVE Influenza Type B (PCR) NEGATIVE RSV RNA Qual (PCR) NEGATIVE SARS-CoV-2 RNA (RT-PCR) NEGATIVE 09/26/24 09/26/24 09/27/24 17:27 23:51 04:30 WBC 7.5 RBC 2.61 L Hgb 8.0 L Hct 23.3 L MCV 89.3 MCH 30.7 MCHC 34.3 RDW 14.4 Plt Count 181 MPV 10.6 Immature Gran % (Auto) 0.4 Neut % (Auto) 76.8 H Lymph % (Auto) 15.0 L [place] % (Auto) 5.7 Eos % (Auto) 1.3 Baso % (Auto) 0.8 Lymph # (Auto) 1.1 L [place] # (Auto) 0.4 Eos # (Auto) 0.1 Baso # (Auto) 0.1 Abs Immat Gran (auto) 0.03 Absolute Neuts (auto) 5.8 Absolute Nucleated RBC 0.000 Nucleated RBC % (auto) 0.0 Smear Path Review Sodium 133 L Potassium 4.8 Chloride 96 Carbon Dioxide 16 L Anion Gap 26 H BUN 44 H Creatinine 8.26 H* Estim Creat Clear Calc 5.9 Estimated GFR 5 POC Glucose 80 71 Random Glucose 61 Calcium 8.0 L Total Bilirubin 0.6 AST 19 ALT 8 Alkaline Phosphatase 73 Total Protein 6.0 L Albumin 3.6 Influenza Type A (PCR) Influenza Type B (PCR) RSV RNA Qual (PCR) SARS-CoV-2 RNA (RT-PCR) Microbiology Microbiology Results: Microbiology 09/24/24 09:44 Blood - Venous Blood Culture - Preliminary No growth after 48 hours. 09/24/24 09:46 Blood - Venous Blood Culture - Preliminary No growth after 48 hours. Progress Note: A&P Assessment and plan (1) Substance abuse: Status: Acute (2) ESRD (end stage renal disease): Status: Acute (3) ESRD (end stage renal disease) on dialysis: Status: Acute (4) Acute anemia: Status: Acute (5) Delirium due to general medical condition: Status: Acute (6) Seizure: Status: Acute Plan Neuro: Acute encephalopathy possibly due to seizures, status epilepticus and postictal syndrome; unsure about drug use as the could not get a UDS because patient does not make any urine. Alcohol levels negative Methadone started at 30 mg, QT interval ok. CT head did not show any acute intracranial pathologies, on Keppra for seizures. Neurology consulted for long-term follow-up, advised to continue PO Keprra 500mg BID Cardiac: Hypertensive urgency: off cardene drip, given her ESRD her blood pressures would tend to be on higher side Respiratory: Extubated yesterday, tolerating liberation from ventilator well GI: on oral feeds Renal: end-stage renal disease on renal replacement therapy continue hemodialysis sessions as per Nephrology We will closely monitor I's and O's Avoid nephrotoxic medications Heme: Chronic anemia, closely monitor H&H, transfuse for hemoglobin less than 7 grams/deciliter Endocrine: Blood sugars under control Sliding scale insulin as needed Infectious disease: Zosyn for empiric coverage stopped yesterday Musculoskeletal: Decubitus ulcer prevention protocol Lines: right subclavian PermCath Prophylaxis: heparin, pantoprazole Quality Stroke Does the patient have a stroke diagnosis?: No VTE Prior VTE?: No VTE Risk Level:: Medical - moderate - high VTE Device Contraindication: Treatment Not Indicated VTE Drug Contraindication: N/A - Med Ordered
[2024-09-27] MEDS: amLODIPine Besylate 5 MG TABLET PO (09:39)
[2024-09-27] MEDS: levETIRAcetam 1,000 MG TABLET 1000 MG PO (09:40)
[2024-09-27] MEDS: carvediloL 6.25 MG TABLET PO ×2 (10:10→21:36)
--- NOTE | 2024-09-27 10:17 | P.CNNE_ITS ---
History of Present Illness Data of Consult Service Date: 09/27/24 Primary Care Provider: [facility] Reason for consult: Seizures 49 years old woman with underlying history of end-stage renal disease probably related to amyloidosis and drug use came to hospital after she was found on the floor with gaze deviation and loss of bowel control. Apparently she had a witness generalized seizure in the hospital. She was not known to have seizures. Her electrolytes or abnormal but she was not febrile and head CT did not reveal any acute abnormality. Now she was getting dialysis and was feeling better. She was not in any pain or distress. Review of Systems 2 Review of Systems: No recent cold or flu-like illness or headache PMFSH Past Medical History Medical History (Updated 09/25/24 @ 09:52 by Carlton Vasquez MD) HTN (hypertension) Drug abuse ESRD (end stage renal disease) Social History Social History (Updated 09/24/24 @ 10:54 by Elena Raymond DO) Alcohol intake: unknown Patient Tobacco Use Status: Tobacco use Unknown Use of substances other than those prescribed or required for medical reasons: Unable to respond Currently Displaying Signs/Symptoms of Drug Intoxication Withdrawal: No Advance Directives: Yes Advance Directives Information Provided: No Advance Directives on File: Yes Advance Directives Date on File: 09/25/24 Meds Allergies Allergy/AdvReac Type Severity Reaction Status Date / Time No Known Allergies Allergy Verified 09/24/24 09:35 Active Medications: Current Medications Amlodipine Besylate (Amlodipine Besylate 5 Mg Tablet) 5 mg PO DAILY [facility]; Protocol Last Admin: 09/27/24 09:39 Dose: 5 mg Carvedilol (Carvedilol 6.25 Mg Tablet) 6.25 mg PO BID [facility]; Protocol Last Admin: 09/27/24 10:10 Dose: 6.25 mg Heparin Sodium (Porcine) (Heparin Sodium,Porcine 5,000 Unit/Ml Vial) 5,000 unit SUBCUT Q8H [facility] Last Admin: 09/27/24 05:03 Dose: Not Given Heparin Sodium (Porcine) (Heparin Sodium,Porcine 5,000 Unit/Ml Vial) 5,000 unit INTRACATH MOWEFR@1645 [facility] Last Admin: 09/26/24 20:48 Dose: Not Given Levetiracetam (Levetiracetam 500 Mg Tablet) 500 mg PO BID [facility] Lorazepam (Lorazepam 2 Mg/Ml Vial) 2 mg IVPUSH Q2H PRN PRN Reason: Seizures Last Admin: 09/25/24 00:13 Dose: 2 mg Methadone HCl (Methadone Hcl 20 Mg/2 Ml Oral.Conc) 30 mg PO DAILY [facility] Last Admin: 09/27/24 08:08 Dose: 30 mg Sevelamer Carbonate (Sevelamer Carbonate Tablet 800 Mg Tablet) 800 mg PO TIDWM [facility] Sodium Chloride (0.9 % Sodium Chloride Flush 3 Ml Syringe) 3 ml IVFLUSH QSHIFT [facility] Last Admin: 09/27/24 07:58 Dose: 3 ml Home Medications ?Medication ?Instructions ?Recorded ?Confirmed ?Last Taken ?Type amlodipine 5 mg tablet 5 mg PO DAILY 09/24/24 09/24/24 Unknown History carvedilol 6.25 mg tablet 6.25 mg PO BID 09/24/24 09/24/24 Unknown History methadone 10 mg/mL oral concentrate 50 mg PO DAILY 09/24/24 09/26/24 Unknown History sevelamer carbonate 800 mg tablet 800 mg PO TIDWM 09/24/24 09/24/24 Unknown History sodium zirconium cyclosilicate 10 10 g PO SUTUTHSA 09/24/24 09/24/24 Unknown History gram oral powder packet (Lokelma) Physical Exam 2 Vital Signs: Vital Signs: Last Vital Signs Temp 97.8 F 09/27/24 08:00 Pulse 97 09/27/24 10:10 Resp 18 09/27/24 09:00 BP 207/122 H 09/27/24 10:10 Pulse Ox 100 09/27/24 09:00 O2 Del Method Room Air 09/27/24 09:00 FiO2 21 09/26/24 12:00 BMI result Body Mass Index 22.0 Neuro: Other: She is alert and awake with normal spontaneity of speech fluency comprehension and affect. Pupils are about 5 mm round reactive to light. Extraocular muscles are intact. Visual lara are full. Face is symmetrical. There was no obvious focal arm or leg weakness. Speech is normal. Results Labs 09/27/24 04:30 09/27/24 04:30 Labs: Short CBC 09/27/24 Range/Units 04:30 WBC 7.5 (4.8-10.8) X10*3/uL Hgb 8.0 L (12.0-16.0) g/dl Hct 23.3 L (37.0-47.0) % Plt Count 181 (160-400) X10*3/uL BMP 09/27/24 04:30 Sodium 133 L Potassium 4.8 Chloride 96 Carbon Dioxide 16 L BUN 44 H Creatinine 8.26 H* Calcium 8.0 L Liver Function 09/27/24 Range/Units 04:30 Total Bilirubin 0.6 (0.0-1.0) mg/dL AST 19 (5-31) U/L ALT 8 (0-31) U/L Alkaline Phosphatase 73 (39-117) U/L Albumin 3.6 (3.5-5.0) g/dL Head CT did not reveal any significant acute abnormality. Microbiology Microbiology Results: Microbiology 09/24/24 09:44 Blood - Venous Blood Culture - Preliminary No growth after 48 hours. 09/24/24 09:46 Blood - Venous Blood Culture - Preliminary No growth after 48 hours. Assessment and Plan (1) Seizure: Status: Acute New onset generalized seizure disorder with baseline end-stage renal dialysis. My recommendation is to continue levetiracetam 500 mg twice a day. Procedures Date of Service Date of Service: 09/27/24
--- NOTE | 2024-09-27 10:43 | MHC.CLN ---
F/U PT EXTUBATED DISCUSSED AT ROUNDS WITH MD PLAN FOR DIET NPO PENDING SWALLOW IF DIET ADVANCES, RECOMMEND 2GM NA LOW K+, LOW PHOS IN ADDITION TO NICKEL PLATER RECOMMENDATIONS FOLLOWING WITH TEAM
[2024-09-27 11:31] LABS: Glucose, Whole Blood 68 mg/dL (60-115)
--- NOTE | 2024-09-27 11:35 | PM.CNNEP ---
History of Present Illness Reason for Consult Consult date: 09/27/24 Chief Complaint Chief complaint: Hyperkalemia History of Present Illness Narrative: 49 year old patient with history of ESRD followed by Dr Dooley presented to the hospital with altered mental status. Patient was found to have an elevated serum potassium and was admitted to ICU. At the time of the consultation patient is having dialysis. She denies chest pain, SOB, nausea, vomiting or diarrhea. Review of Systems Review of Systems 10 points ROS negative except for pertinent oin HPI PMFSH Past Medical History Medical History (Updated 09/27/24 @ 11:36 by Geremias Gibson MD) HTN (hypertension) Drug abuse ESRD (end stage renal disease) Social History Social History (Updated 09/24/24 @ 10:54 by Elena Raymond DO) Alcohol intake: unknown Patient Tobacco Use Status: Tobacco use Unknown Use of substances other than those prescribed or required for medical reasons: Unable to respond Currently Displaying Signs/Symptoms of Drug Intoxication Withdrawal: No Advance Directives: Yes Advance Directives Information Provided: No Advance Directives on File: Yes Advance Directives Date on File: 09/25/24 Meds Allergies Allergy/AdvReac Type Severity Reaction Status Date / Time No Known Allergies Allergy Verified 09/24/24 09:35 Active Medications: Current Medications Amlodipine Besylate (Amlodipine Besylate 5 Mg Tablet) 5 mg PO DAILY [facility]; Protocol Last Admin: 09/27/24 09:39 Dose: 5 mg Carvedilol (Carvedilol 6.25 Mg Tablet) 6.25 mg PO BID [facility]; Protocol Last Admin: 09/27/24 10:10 Dose: 6.25 mg Heparin Sodium (Porcine) (Heparin Sodium,Porcine 5,000 Unit/Ml Vial) 5,000 unit SUBCUT Q8H [facility] Last Admin: 09/27/24 05:03 Dose: Not Given Heparin Sodium (Porcine) (Heparin Sodium,Porcine 5,000 Unit/Ml Vial) 5,000 unit INTRACATH MOWEFR@1645 [facility] Last Admin: 09/26/24 20:48 Dose: Not Given Levetiracetam (Levetiracetam 500 Mg Tablet) 500 mg PO BID [facility] Lorazepam (Lorazepam 2 Mg/Ml Vial) 2 mg IVPUSH Q2H PRN PRN Reason: Seizures Last Admin: 09/25/24 00:13 Dose: 2 mg Methadone HCl (Methadone Hcl 20 Mg/2 Ml Oral.Conc) 30 mg PO DAILY [facility] Last Admin: 09/27/24 08:08 Dose: 30 mg Sevelamer Carbonate (Sevelamer Carbonate Tablet 800 Mg Tablet) 800 mg PO TIDWM [facility] Sodium Chloride (0.9 % Sodium Chloride Flush 3 Ml Syringe) 3 ml IVFLUSH QSHIFT [facility] Last Admin: 09/27/24 07:58 Dose: 3 ml Home Medications ?Medication ?Instructions ?Recorded ?Confirmed ?Last Taken ?Type amlodipine 5 mg tablet 5 mg PO DAILY 09/24/24 09/24/24 Unknown History carvedilol 6.25 mg tablet 6.25 mg PO BID 09/24/24 09/24/24 Unknown History methadone 10 mg/mL oral concentrate 50 mg PO DAILY 09/24/24 09/26/24 Unknown History sevelamer carbonate 800 mg tablet 800 mg PO TIDWM 09/24/24 09/24/24 Unknown History sodium zirconium cyclosilicate 10 10 g PO SUTUTHSA 09/24/24 09/24/24 Unknown History gram oral powder packet (Lokelma) Physical Exam Vital Signs: Last Vital Signs Temp 97.8 F 09/27/24 08:00 Pulse 97 09/27/24 10:10 Resp 18 09/27/24 10:00 BP 207/122 H 09/27/24 10:10 Pulse Ox 100 09/27/24 10:00 O2 Del Method Room Air 09/27/24 10:00 FiO2 21 09/26/24 12:00 BMI result Body Mass Index 22.0 Const General: alert and awake HEENT Head: Yes normocephalic and Yes atraumatic Neck Neck: Yes supple Resp Auscultation: clear to auscultation bilaterally Cardio Heart sounds: S1 normal heart sound present and S2 normal heart sound present GI Palpation (GI): Soft to palpation and nontender Extrem General: Yes normal to inspection Results Lab Results 09/27/24 04:30 09/27/24 04:30 Lab results: Chemistry 09/24/24 09/25/24 09/25/24 19:38 06:20 20:45 Sodium 139 133 L 131 L Potassium 3.2 L D 3.9 D 4.4 Carbon Dioxide 24 24 21 L BUN 28 H 33 H 34 H Creatinine 4.33 H* 6.44 H* 6.75 H* Calcium 9.2 7.9 L D 7.5 L Phosphorus 4.8 H 6.4 H 09/26/24 09/27/24 04:58 04:30 Sodium 131 L 133 L Potassium 4.2 4.8 Carbon Dioxide 19 L 16 L BUN 36 H 44 H Creatinine 7.17 H* 8.26 H* Calcium 7.6 L 8.0 L Phosphorus 6.4 H Hematology 09/24/24 09/25/24 09/25/24 19:38 06:20 20:00 WBC 18.8 H 11.4 H 9.0 Hgb 9.3 L D 7.5 L 8.9 L Plt Count 321 239 D 205 09/26/24 09/27/24 04:58 04:30 WBC 7.2 7.5 Hgb 8.6 L 8.0 L Plt Count 199 181 Assessment and Plan (1) ESRD (end stage renal disease): Status: Acute (2) Anemia: Status: Acute Plan ESRD on HD at [facility] via [facility] followed by Dr Dooley presented with AMS nephrogenic anemia REC HD today optimize volume status renal diet P binders LEONEL Procedures Date of Service Date of Service: 09/27/24
[2024-09-27 11:53] LABS: Glucose, Whole Blood 74 mg/dL (60-115)
--- NOTE | 2024-09-27 13:15 | MHC.SL.SWA ---
Speech Pathologist Impression: WFL Risk of Aspiration Due to: Hx of Recent Extubation Dysphasia Diet Status:UPGRADE to REGULAR/THIN Liquid Consistency and Strategies for Safe Swallow: Liquid Intake Recommendation: Thin Liquid Intake Strategies: Small Sips Unrestricted Solid Food Consistency: Dietary Recommendations: Regular Oral Medication Intake: Whole with Liquid Please contact the pharmacy regarding appropriate crushable or liquid drug formulations that are available whenever modified delivery is recommended. Compensatory Strategies and Precautions to be Taken for Safe Swallow: Sitting Upright (90 deg) Small Bites and Sips Alternate Liquids/Solids Rate of Ingestion Change Supervision While Eating and Drinking for Safe Swallow: None Needed Recommendation for Speech: NA:Typical Evaluation Comment: Swallow functional in the oral and pharyngeal phases. Recommend advance to REGULAR texture diet and THIN liquids, with pills WHOLE with LIQUID. Patient is able to independently feed. Please re-refer with any changes or further concern. Frequency/Duration: Date Range for Service Req: Timeline to reassess: Battery Container Tester Aluminum Clinican/Clinical Fellow: No Supervisory Statement: I have reviewed and agree with the student/clinical fellow's documentation: N/A Speech Language Pathologist: Monique Ace M.A., CCC-YARN WASHER
[2024-09-27] MEDS: Sevelamer Carbonate Tablet 800 MG TABLET PO ×2 (14:04→17:22)
[2024-09-27] MEDS: Heparin Sodium,Porcine 5,000 UNIT/ML VIAL 5000 UNIT SUBCUT ×2 (14:05→21:35)
--- NOTE | 2024-09-27 14:22 | MHC.CM.PN ---
Met with pt to review d/c plan: pt states she resides alone, has support from her mother including transportation. She attends [facility] on the [facility] M, W, and has VNA services on those days as well. Pt denies barriers to care - HCP on file: D/C plan: return to home with existing services
--- NOTE | 2024-09-27 15:24 | P.CDIM_ITS ---
PROVIDER RESPONSE TEXT: To clarify, the appropriate diagnosis supported by the clinical indicators: Clinically unable to determine (explain): has multiple skin bruises all over her body, this is a supe rficial wound QUERY TEXT: PHYSICIAN'S DOCUMENTATION REQUEST Date of Query: 09/27/2024 12:15 PM EST Patient Name: Simran Bolanos Admit Date: 09/24/2024 Dear Parth Rivera MD, A review of the medical record indicates additional documentation may be needed. Please review below and update the documentation accordingly. Clinical Indicators: Per Nursing assessment 09/26/24: stage 2 area coccyx foam dressing Based on the above, could you please provide further information regarding the ulcer/wound: Pressure (decubitus) ulcer stage 2 coccyx Traumatic wound Please specify the location and laterality of the ulcer/wound Other (explain) Clinically unable to determine (explain) Thank you, Mary Garcia RN Use of terms such as suspected, likely, concern for, or probable (associated with a specific diagnosi s that is being evaluated, monitored, or treated as if it exists) are acceptable and can be coded in the inpatient se tting, when documented at the time of discharge. Please use your independent medical judgment in providing your response. THIS QUERY IS PART OF THE PERMANENT MEDICAL RECORD
--- NOTE | 2024-09-27 15:24 | HO.WOUND ---
Wound Consult: Initial 49yr old?female admitted to [facility] [place]24/24 11:30 - See progress notes and H&P for detailed history.? Wound consult placed for Coccyx wound POA.? Patient agreeable to assessment and photo documentation.? Coccyx Etiology: Stage 2 Pressure Injury ??Present on Admission Measurements: 1cm x 1cm x 0.1cm Wound Bed: clean pink wound bed Drainage / Odor: none noted Edges: ? ayyached Penny wound: pink blanchable tissue ? No Induration, Fluctuance or Warmth noted Pain: reports tenderness Goals of Treatment: ? Off load and moist wound healing with foam dressing HANS / ISO Tour mattress in use, Foam dressing in place. Recommendations: 1. Turn and Reposition every 2 hours and as needed for patient comfort.? Use pillows or wedges to support off loading positions. 2. Off Load all bony prominences with use of pillows and heel boots if needed.? Apply Preventative foams where needed. ? 3. Monitor for incontinence and moisture control, use barrier creams when needed for prevention and treatment. 4. Provide adequate and supplemental nutrition.? 5. Continue low air loss mattress. 6. When applicable maintain blood glucose levels per Providers order. 7. Coccyx - Off Load Pressure with Q2 hr turns and use of pillows - Cleanse with PH balance spray or wipes, pat dry. ?Apply skin prep allow to dry, Cover with foam dressing to aid in off loading and protection from friction. Change every 5 days and PRN. Re-consult wound care Nurse for wound deterioration or wound changes.
--- NOTE | 2024-09-27 15:47 | PC.NURSE ---
Alert & Oriented. No active seizures, Keppra given per SEP. Generalized weakness, PT consult placed.? RA, Clear Lung BL. Sinus rhythm. Elevated BP during HD, Amlodipine and carvedilol given per SEP.? LBM 3/4 , +bowel sounds, POC 68 this am apple juice given, recheck 74, Passed speech swallowing eval, tolerating diet. Anuric, Received HD today, 3.1L? Fluid removed. Scattered bruising, PI to Coccyx. (Triad/Foam DGS applied) (Reposition maintained) R. subclavian HD catheter, peripheral IVs. Plan: Transfer to Med surg.? No longer requiring ICU-level care.
--- NOTE | 2024-09-27 15:56 | PM.EVENT ---
Event Note Date of Service: 09/28/24 Event Note: This patient is seen and examined Physical exam and assessment plan as per ICU note in addition. 49-year-old lady came with seizure s/p intubation on admission and extubation(09/25/24), ESRD, and treatment noncompliance admitted with hyperkalemia/[facility] ,toxic metabolic encepahlopathy due to suspected polysubstance use and esrd . encpehalopathy improvin new onset seizure dis: added keppra htn urgency-was on cardene drip in icu switched to amlodipine and coreg Polysubstance use On methadone QTc prolongation, hyperkalemia initially in the setting of ESRd: Seems to be improved with dialysis. Polysubstance use: On methadone ? Sacral decubitus stage 2 Wound care consult: 1. Turn and Reposition every 2 hours and as needed for patient comfort.? Use pillows or wedges to support off loading positions. 2. Off Load all bony prominences with use of pillows and heel boots if needed.? Apply Preventative foams where needed. ? 3. Monitor for incontinence and moisture control, use barrier creams when needed for prevention and treatment. 4. Provide adequate and supplemental nutrition.? 5. Continue low air loss mattress. 6. When applicable maintain blood glucose levels per Providers order. 7. Coccyx - Off Load Pressure with Q2 hr turns and use of pillows - Cleanse with PH balance spray or wipes, pat dry. ?Apply skin prep allow to dry, Cover with foam dressing to aid in off loading and protection from friction. Change every 5 days and PRN. pt rec -rehab Time Spent With Patient Time: Total time managing care of this patient today ____ minutes.
[2024-09-27] MEDS: levETIRAcetam 500 MG TABLET PO (21:36)
[2024-09-28] VITALS (7 sets, daily range): BP systolic 162–195; BP diastolic 94–100; PULSE 81–90; RESP 16–20; TEMP 36.6–37.4; O2SAT 96–98
[2024-09-28] MEDS: diphenhydrAMINE HCL 25 MG CAPSULE 50 MG PO (01:24)
[2024-09-28] MEDS: hydrALAZINE HCl 50 MG TABLET PO (01:24)
[2024-09-28] MEDS: Heparin Sodium,Porcine 5,000 UNIT/ML VIAL 5000 UNIT SUBCUT ×2 (06:18→20:35)
[2024-09-28] MEDS: methADONE HCl 20 MG/2 ML ORAL.CONC 30 MG PO (08:47)
[2024-09-28] MEDS: Sevelamer Carbonate Tablet 800 MG TABLET PO ×2 (08:47→16:38)
[2024-09-28] MEDS: levETIRAcetam 500 MG TABLET PO ×2 (08:47→20:34)
[2024-09-28] MEDS: amLODIPine Besylate 5 MG TABLET PO ×2 (08:47→16:47)
[2024-09-28] MEDS: carvediloL 6.25 MG TABLET PO ×2 (08:47→20:34)
[2024-09-28] MEDS: 0.9 % Sodium Chloride Flush 3 ML SYRINGE IVFLUSH ×3 (08:47→20:35)
--- NOTE | 2024-09-28 09:01 | MHC.CM.PN ---
EMR REVIEWED, PT STEP DOWN FROM ICU S/P VENT ON MMTP AND OUTPT HD, P.T. RECOMMENDING STR ON 09/27, CM WILL LIKELY NEED TO GO AT LEAST TO [facility] IF AGREEABLE TO STR, BOAD REFERRAL TO BE PLACED, CM WILL CONT TO FOLLOW DC NEEDS.
--- NOTE | 2024-09-28 15:04 | MHC.CLN ---
F/U PT WITH INCREASED NUTRITION RISK R/T PRESSURE INJURY PO INTAKE POOR DIET ADVANCED TO CARDIAC LOW PHOS LOW K+-RECOMMEND 2GM NA LOW K+, LOW PHOS DIET RECOMMEND ADDING ENSURE CLEAR TID TO PROMOTE WOUND HEALING SUPP TO PROVIDE 720KCALS, 24G PROTEIN (RENAL FRIENDLY) MONITOR PO INTAKE AND ENCOURAGE SUPPLEMENTS
[2024-09-28] MEDS: Heparin Sodium,Porcine 5,000 UNIT/ML VIAL 5000 UNIT INTRACATH (16:37)
--- NOTE | 2024-09-28 17:11 | HO.PM.IMPN ---
Subjective Subjective Date of Service: 09/28/24 Interval History: uncontrolled htn Review of Systems patient feelingsomewhat improving bp still uncontrolled Physical Exam Vital Signs: Vital Signs: Last Vital Signs Temp 98.6 F 09/28/24 16:00 Pulse 87 09/28/24 16:00 Resp 16 09/28/24 16:00 BP 195/98 H 09/28/24 16:00 Pulse Ox 98 09/28/24 16:00 O2 Del Method Room Air 09/28/24 16:00 FiO2 21 09/26/24 12:00 BMI result Body Mass Index 22.0 Appearance: Alert.? Oriented X3. cvs: rrr, [id number] . res: clear to auscultation. abd: no rebound or guarding ,nt, bs present. ext pulses present , no cyanosis . neuro:nonfocal. Objective Data Active Medications Amlodipine Besylate (Amlodipine Besylate 10 Mg Tablet) 10 mg PO DAILY [facility]; Protocol Carvedilol (Carvedilol 6.25 Mg Tablet) 6.25 mg PO BID [facility]; Protocol Last Admin: 09/28/24 08:47 Dose: 6.25 mg Documented By: RIA Heparin Sodium (Porcine) (Heparin Sodium,Porcine 5,000 Unit/Ml Vial) 5,000 unit SUBCUT Q8H [facility] Last Admin: 09/28/24 12:07 Dose: Not Given Documented By: RIA Non-Admin Reason: Off unit: Dialysis Heparin Sodium (Porcine) (Heparin Sodium,Porcine 5,000 Unit/Ml Vial) 5,000 unit INTRACATH MOWEFR@1645 [facility] Last Admin: 09/28/24 16:37 Dose: 5,000 unit Documented By: RIA Levetiracetam (Levetiracetam 500 Mg Tablet) 500 mg PO BID [facility] Last Admin: 09/28/24 08:47 Dose: 500 mg Documented By: RIA Lorazepam (Lorazepam 2 Mg/Ml Vial) 2 mg IVPUSH Q2H PRN PRN Reason: Seizures Last Admin: 09/25/24 00:13 Dose: 2 mg Documented By: MARIYA Methadone HCl (Methadone Hcl 20 Mg/2 Ml Oral.Conc) 30 mg PO DAILY [facility] Last Admin: 09/28/24 08:47 Dose: 30 mg Documented By: RIA Co-signed By: TITA Sevelamer Carbonate (Sevelamer Carbonate Tablet 800 Mg Tablet) 800 mg PO TIDWM [facility] Last Admin: 09/28/24 16:38 Dose: 800 mg Documented By: RIA Sodium Chloride (0.9 % Sodium Chloride Flush 3 Ml Syringe) 3 ml IVFLUSH QSHIFT [facility] Last Admin: 09/28/24 16:47 Dose: 3 ml Documented By: RIA Labs 09/27/24 04:30 09/27/24 04:30 Assessment and Plan (1) ESRD (end stage renal disease): Status: Acute Plan 49-year-old lady came with seizure s/p intubation on admission and extubation(09/25/24), ESRD, and treatment noncompliance admitted with hyperkalemia/[place] ,toxic metabolic encepahlopathy due to suspected polysubstance use and esrd . encpehalopathy improvin new onset seizure dis: continue keppra htn uncontrolled adjusted amlodipine to 10 mg qd andcontinue coreg po 6.25 mg bid. esrd: bicarb 16 anion gap 26 no other symptoms d/w DR jarrett -recomended continue hd. Polysubstance use On methadone QTc prolongation, hyperkalemia initially in the setting of ESRd: Seems to be improved with dialysis. Polysubstance use: On methadone ? Sacral decubitus stage 2 Wound care consult: 1. Turn and Reposition every 2 hours and as needed for patient comfort.? Use pillows or wedges to support off loading positions. 2. Off Load all bony prominences with use of pillows and heel boots if needed.? Apply Preventative foams where needed. ? 3. Monitor for incontinence and moisture control, use barrier creams when needed for prevention and treatment. 4. Provide adequate and supplemental nutrition.? 5. Continue low air loss mattress. 6. When applicable maintain blood glucose levels per Providers order. 7. Coccyx - Off Load Pressure with Q2 hr turns and use of pillows - Cleanse with PH balance spray or wipes, pat dry. ?Apply skin prep allow to dry, Cover with foam dressing to aid in off loading and protection from friction. Change every 5 days and PRN. Quality Stroke Does the patient have a stroke diagnosis?: No VTE Prior VTE?: No VTE Risk Level:: Medical - moderate - high VTE Device Contraindication: Treatment Not Indicated VTE Drug Contraindication: N/A - Med Ordered
[2024-09-29 03:07] VITALS: BP 140/80; PULSE 86; RESP 20; TEMP 36.1; O2SAT 99
[2024-09-29] MEDS: Heparin Sodium,Porcine 5,000 UNIT/ML VIAL 5000 UNIT SUBCUT ×3 (04:53→21:43)
[2024-09-29 07:47] VITALS: BP 190/100; PULSE 85
[2024-09-29] MEDS: carvediloL 6.25 MG TABLET PO (07:47)
[2024-09-29] MEDS: amLODIPine Besylate 10 MG TABLET PO (07:47)
[2024-09-29] MEDS: levETIRAcetam 500 MG TABLET PO ×2 (07:48→21:43)
[2024-09-29] MEDS: Sevelamer Carbonate Tablet 800 MG TABLET PO ×3 (07:48→17:36)
[2024-09-29] MEDS: methADONE HCl 20 MG/2 ML ORAL.CONC 30 MG PO (07:48)
[2024-09-29] MEDS: 0.9 % Sodium Chloride Flush 3 ML SYRINGE IVFLUSH ×3 (07:48→21:51)
[2024-09-29 08:00] VITALS: RESP 14; TEMP 36.1; O2SAT 98
--- NOTE | 2024-09-29 10:39 | PM.PNNEP ---
Subjective Subjective Date of Service: 09/29/24 Interval history: seen and examined d/w medical attending Physical Exam Vital Signs: Vital Signs: Last Vital Signs Temp 97.0 F 09/29/24 08:00 Pulse 85 09/29/24 07:47 Resp 14 09/29/24 08:00 BP 190/100 H 09/29/24 07:47 Pulse Ox 98 09/29/24 08:00 O2 Del Method Room Air 09/29/24 08:00 FiO2 21 09/26/24 12:00 BMI result Body Mass Index 22.0 Const: General: alert and awake HEENT: Head: Yes normocephalic and Yes atraumatic Neck: Neck: Yes supple Resp: Auscultation: clear to auscultation bilaterally Cardio: Heart sounds: S1 normal heart sound present and S2 normal heart sound present GI: Palpation (GI): Soft to palpation and nontender Extrem: General: Yes normal to inspection Objective Data Labs 09/27/24 04:30 09/27/24 04:30 Microbiology Microbiology Results: Microbiology 09/24/24 09:44 Blood - Venous Blood Culture - Preliminary No growth after 48 hours. 09/24/24 09:46 Blood - Venous Blood Culture - Preliminary No growth after 48 hours. Procedures Date of Service Date of Service: 09/29/24 Assessment & Plan Assessment and plan (1) ESRD (end stage renal disease): Status: Acute (2) Anemia: Status: Acute Plan s/p HD yesterday ESRD on HD at [facility] via [facility] followed by Dr Dooley presented with AMS nephrogenic anemia elevated BP REC HD tomorrow DC amlodipine nifedipine xl 60 mg daily (titrate to bid if BP remains high) renal diet P binders hold LEONEL if BP high Time Spent With Patient Time: Total time managing care of this patient today ____ minutes. Progress Note: Quality Stroke Does the patient have a stroke diagnosis?: No
[2024-09-29 11:06] VITALS: BMI 22.0
--- NOTE | 2024-09-29 11:18 | MHC.CM.PN ---
EMR REVIEWED, PER HOSPITALIST PT NOT MEDICALLY CLEARED, [facility], [facility], [facility], [facility] ALL FOLLOWING FOR BED AVAILABILITY, [facility] REPORTS THEY CAN ACCOMMODATE HD AND METHADONE HOWEVER PT WOULD NEED GUEST DOSING AND GO TO CLINIC DAILY, CM WILL CONT TO FOLLOW.
--- NOTE | 2024-09-29 14:56 | P.PNIM_ITS ---
Subjective Subjective Date of Service: 09/29/24 Interval History: encpehalopathy htn Review of Systems seems mental status improving bp flactuating Physical Exam 2 Vital Signs: Vital Signs: Last Vital Signs Temp 97.0 F 09/29/24 08:00 Pulse 85 09/29/24 07:47 Resp 14 09/29/24 08:00 BP 190/100 H 09/29/24 07:47 Pulse Ox 98 09/29/24 08:00 O2 Del Method Room Air 09/29/24 08:00 FiO2 21 09/26/24 12:00 BMI result Body Mass Index 22.0 Appearance:not in distress. cvs: rrr, [id number] . res: clear to auscultation. abd: no rebound or guarding ,nt, bs present. ext pulses present , no cyanosis . neuro:nonfocal. Objective Data Active Medications Carvedilol (Carvedilol 12.5 Mg Tablet) 12.5 mg PO BID [facility]; Protocol Last Admin: 09/29/24 09:18 Dose: Not Given Documented By: RIA Non-Admin Reason: Physician Approved Heparin Sodium (Porcine) (Heparin Sodium,Porcine 5,000 Unit/Ml Vial) 5,000 unit SUBCUT Q8H [facility] Last Admin: 09/29/24 11:47 Dose: 5,000 unit Documented By: RIA Heparin Sodium (Porcine) (Heparin Sodium,Porcine 5,000 Unit/Ml Vial) 5,000 unit INTRACATH MOWEFR@1645 [facility] Last Admin: 09/28/24 16:37 Dose: 5,000 unit Documented By: RIA Levetiracetam (Levetiracetam 500 Mg Tablet) 500 mg PO BID [facility] Last Admin: 09/29/24 07:48 Dose: 500 mg Documented By: RIA Lorazepam (Lorazepam 2 Mg/Ml Vial) 2 mg IVPUSH Q2H PRN PRN Reason: Seizures Last Admin: 09/25/24 00:13 Dose: 2 mg Documented By: MARIYA Methadone HCl (Methadone Hcl 20 Mg/2 Ml Oral.Conc) 30 mg PO DAILY [facility] Last Admin: 09/29/24 07:48 Dose: 30 mg Documented By: RIA Co-signed By: TITA Nifedipine (Nifedipine Er 60 Mg Tab.Er.24) 60 mg PO DAILY [facility]; Protocol Sevelamer Carbonate (Sevelamer Carbonate Tablet 800 Mg Tablet) 800 mg PO TIDWM [facility] Last Admin: 09/29/24 11:47 Dose: 800 mg Documented By: RIA Sodium Chloride (0.9 % Sodium Chloride Flush 3 Ml Syringe) 3 ml IVFLUSH QSHIFT [facility] Last Admin: 09/29/24 07:48 Dose: 3 ml Documented By: RIA Labs 09/27/24 04:30 09/27/24 04:30 Microbiology Microbiology Results: Microbiology 09/24/24 09:44 Blood Culture - Final Blood - Venous No growth after 5 days. 09/24/24 09:46 Blood Culture - Final Blood - Venous No growth after 5 days. Assessment and Plan (1) ESRD (end stage renal disease): Status: Acute Plan 49-year-old lady came with seizure s/p intubation on admission and extubation(09/25/24), ESRD, and treatment noncompliance admitted with hyperkalemia/[place] ,toxic metabolic encepahlopathy due to suspected polysubstance use and esrd . encpehalopathy improvin new onset seizure dis: continue keppra htn uncontrolled adjusted amlodipine to 10 mg qd andcontinue coreg po 6.25 mg bid. esrd: bicarb 16,anion gap 26, got hd yesterday-today labs ordered. Polysubstance use On methadone QTc prolongation, hyperkalemia initially in the setting of ESRd: Seems to be improved with dialysis. Polysubstance use: On methadone ? Sacral decubitus stage 2 Wound care consult: 1. Turn and Reposition every 2 hours and as needed for patient comfort.? Use pillows or wedges to support off loading positions. 2. Off Load all bony prominences with use of pillows and heel boots if needed.? Apply Preventative foams where needed. ? 3. Monitor for incontinence and moisture control, use barrier creams when needed for prevention and treatment. 4. Provide adequate and supplemental nutrition.? 5. Continue low air loss mattress. 6. When applicable maintain blood glucose levels per Providers order. 7. Coccyx - Off Load Pressure with Q2 hr turns and use of pillows - Cleanse with PH balance spray or wipes, pat dry. ?Apply skin prep allow to dry, Cover with foam dressing to aid in off loading and protection from friction. Change every 5 days and PRN. Quality Stroke Does the patient have a stroke diagnosis?: No VTE Prior VTE?: No VTE Risk Level:: Medical - moderate - high VTE Device Contraindication: Treatment Not Indicated VTE Drug Contraindication: N/A - Med Ordered
[2024-09-29 15:52] LABS: Anion Gap 17 (12-20); Blood Urea Nitrogen 16 mg/dL (9-16); Calcium 8.9 mg/dL (8.4-10.2); Carbon Dioxide 25 mmol/L (22-29); Chloride 98 mmol/L (96-108); Creatinine Clr Calc Pharmacy 10.5; Estimated Glomerular Filt Rate 10; Glucose Random 102 mg/dL (60-115); Potassium 4.3 mmol/L (3.3-5.1); Sodium 136 mmol/L (135-145)
[2024-09-29 16:00] VITALS: BP 172/104; PULSE 85; RESP 12; TEMP 36.9; O2SAT 99
[2024-09-29 17:37] VITALS: BP 180/101; PULSE 84
[2024-09-29] MEDS: carvediloL 12.5 MG TABLET PO (17:37)
[2024-09-29 20:00] VITALS: BP 177/100; PULSE 86; RESP 20; TEMP 36.3
[2024-09-30 00:31] VITALS: BP 176/102; PULSE 82; RESP 20; TEMP 37.4; O2SAT 98
[2024-09-30 04:00] VITALS: BP 182/104; PULSE 86; RESP 20; TEMP 36.1; O2SAT 98
[2024-09-30] MEDS: Heparin Sodium,Porcine 5,000 UNIT/ML VIAL 5000 UNIT SUBCUT ×2 (04:52→12:38)
[2024-09-30 07:43] VITALS: BP 190/100; PULSE 89; RESP 20; TEMP 37.1; O2SAT 98
[2024-09-30] MEDS: NIFEdipine ER 60 MG TAB.ER.24 PO (08:08)
[2024-09-30] MEDS: carvediloL 12.5 MG TABLET PO (08:08)
[2024-09-30] MEDS: 0.9 % Sodium Chloride Flush 3 ML SYRINGE IVFLUSH (08:10)
--- NOTE | 2024-09-30 08:11 | PC.NURSE ---
Morning BP elevated. Patient resting in bed, calm and cooperative, asymptomatic. Dr. Hansa Lainez notified. Patient scheduled for hemodialysis today at 1045. Morning scheduled BP meds given early per .
--- NOTE | 2024-09-30 08:33 | MHC.CM.PN ---
EMR REVIEWED, PT W/HYPERKALEMIA D/T MISSED HD, CURRENTLY HYPERTENSIVE, CM MET W/PT AT BEDSIDE TO DISCUSS DISPO, PT REPORTS SHE WOULD LIKE STR AGREEABLE TO PLACEMENT IN [facility] AND THAT IF SHE GOES TO [facility] SHE WILL GO TO [facility] DAILY [facility], [facility], [facility] ALL FOLLOWING FOR BED AVAILABILITY, SNF REFERRAL UPDATED, CM WILL CONT TO FOLLOW DC NEEDS.
[2024-09-30] MEDS: Sevelamer Carbonate Tablet 800 MG TABLET PO ×2 (09:18→12:38)
--- NOTE | 2024-09-30 09:20 | PC.NURSE ---
Patient requesting morning keppra and methadone to be given after hemodialysis today. Dr. Hansa Lainez aware and okayed later administration.
--- NOTE | 2024-09-30 10:01 | HO.WOUND ---
Wound Consult: Follow up 49yr old?female admitted to [facility] on 09/24/24 11:30 - See progress notes and H&P for detailed history.? Wound consult follow up for Coccyx wound POA.? Patient agreeable to assessment and photo documentation.? 09/30/24 Coccyx Coccyx 09/27/24 Etiology: Resolving Stage 2 Pressure Injury ??Present on Admission Measurements: 0.6cm x 0.6cm x 0.1cm Wound Bed: resurfaced clean pink wound bed Drainage / Odor: none noted Edges: ? attached Penny wound: intact ? No Induration, Fluctuance or Warmth noted Pain: denies pain Goals of Treatment: ? Off load and moist wound healing with foam dressing HANS not in use due to availability at this time. Patient set for d/c to facility later today. If to remain inpatient recommend HANS pump. Recommendations: 1. Turn and Reposition every 2 hours and as needed for patient comfort.? Use pillows or wedges to support off loading positions. 2. Off Load all bony prominences with use of pillows and heel boots if needed.? Apply Preventative foams where needed. ? 3. Monitor for incontinence and moisture control, use barrier creams when needed for prevention and treatment. 4. Provide adequate and supplemental nutrition.? 5. Continue low air loss mattress. 6. When applicable maintain blood glucose levels per Providers order. 7. Coccyx - Off Load Pressure with Q2 hr turns and use of pillows - Cleanse with PH balance spray or wipes, pat dry. ?Apply skin prep allow to dry, Cover with foam dressing to aid in off loading and protection from friction. Change every 5 days and PRN. Re-consult wound care Nurse for wound deterioration or wound changes.
[2024-09-30] MEDS: Acetaminophen 325 MG TABLET PO (12:56)
--- NOTE | 2024-09-30 14:04 | MHC.CLN ---
F/U PT WITH INCREASED NUTRITION RISK R/T PRESSURE INJURY PO INTAKE 100% X2 DIET RX: 2GM NA LOW K+, LOW PHOS DIET RECEIVING ENSURE CLEAR TID TO PROMOTE WOUND HEALING SUPP TO PROVIDE 720KCALS, 24G PROTEIN (RENAL FRIENDLY) MONITOR PO INTAKE AND ENCOURAGE SUPPLEMENTS
[2024-09-30] MEDS: levETIRAcetam 500 MG TABLET PO (16:08)
[2024-09-30] MEDS: methADONE HCl 20 MG/2 ML ORAL.CONC 30 MG PO (16:08)
--- NOTE | 2024-09-30 16:24 | MHC.CM.PN ---
PT DISCHARGING AMA, PT'S [employer] [facility] FOR METHADONE DELIVERY NOTIFIED VIA FAX/VOICEMAIL, PT PROVIDED W/[facility] PROVIDER LIST SHE REPORTS SHE HAS NO PCP, PT REPORTS SHE WILL CALL AN UBER FOR TRANSPORT HOME AND THAT SHE HAS A ROOMMATE SO SHE WILL NOT BE ALONE.
--- NOTE | 2024-09-30 16:33 | PM.DS ---
DS: Providers Provider Date of Service: 09/30/24 Date of admission: 09/24/24 11:30 Date of discharge: 09/30/24 Primary care physician: [facility] Consults: 09/26/24 17:16 Consult to Neurology Routine Consulting Provider: [facility] Reason for consultation: seizures Has provider been notified: No 09/27/24 11:13 Consult to Wound Care Routine Reason for consultation: Pressure injury to coccyx wound Attending physician on discharge: Eladio Lainez Discharging clinician: Eladio Lainez DS: Diagnosis Discharge Diagnosis (1) ESRD (end stage renal disease): Status: Acute DS: Summary Hospital Course Hospital Course: HPI: 49-year-old lady with underlying 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 On ER evaluation patient with significant hyperkalemia, elevated renal indices, and widening QRS. QRS improved with administration of bicarbonate. Nephrology service consulted for emergent hemodialysis. Patient admitted to the intensive care unit. Hospital course: 49-year-old lady came with seizure s/p intubation on admission and extubation(09/25/24), ESRD, and treatment noncompliance admitted with hyperkalemia/[place] ,toxic metabolic encepahlopathy due to suspected polysubstance use and esrd : Patient was found altered-found to have hyperkalemia and elevated renal in indices, QRS widening, QRS improved with bicarbonate, Nephrology was consulted for dialysis, in addition patient had hospital course complicated by seizures and requiring intubation, CTA head and negative, patient also got dialysis: Patient condition seems to be improved -mental status seems to be improved, patient was seen by Neurology recommended to start on Keppra 500 b.i.d. for new seizure disorder. normocyctic anemia -likley related to esrd,moniter cbc outpatient. Patient also has uncontrolled hypertension: We have adjusted medications Coreg adjusted to 12.5 mg p.o. b.i.d., and also adjusted nifedipine to 60 mg b.i.d., amlodipine stopped. PT recommended rehab: patient declined rehab. Staff was at bedside during this conversation patient understands and could able to spell back to us. She is alert oriented x3. Patient was also told to go to nearest emergency room for treatment. her methadone dose adjusted in icu was 30 mg qd.no signs of withdrawal. strongly advised to compliance with hemodialysis, also strongly advised to abstain from substance use. She refused to talk to the addiction team also. Sacral decubitus stage : Patient has back pressure ulcer, advised her too that can get worse:advised Off Load Pressure with Q2 hr turns and use of pillows - Cleanse with PH balance spray or wipes, pat dry. ?Apply skin prep allow to dry, Cover with foam dressing to aid in off loading and protection from friction. Patient today decided to leave against medical advice-she understand she has uncontrolled blood pressure and understand the complications of stroke ,heart attack and even in addition due to generalized weakness she can name and fall and have fracture she understand that as well as back ulcer can get worse. Time Attestation Total time managing care of this patient today: 40 mintues. Discharge Coordination Time (in mins): 40 min Quality: Safe Use of Opioids Does Pt have an Active Cancer Diagnosis on the Problem List?: No Quality: Stroke Does the patient have a stroke diagnosis?: No Physical Exam Vital Signs: Vital Signs: Last Vital Signs Temp 98.8 F 09/30/24 07:43 Pulse 89 09/30/24 07:43 Resp 20 09/30/24 07:43 BP 190/100 H 09/30/24 07:43 Pulse Ox 98 09/30/24 07:43 O2 Del Method Room Air 09/30/24 07:43 FiO2 21 09/26/24 12:00 BMI result Body Mass Index 22.0 Appearance:not in distress. cvs: rrr, [id number] . res: clear to auscultation. abd: no rebound or guarding ,nt, bs present. ext pulses present , no cyanosis . neuro:nonfocal. DS: Data Imaging Chest x-ray: My impression: ct head: 1. No acute intracranial findings. c spine: No acute findings. cxr: 1. Endotracheal tube terminates appropriately 2.3 cm above the yaron. Discharge Plan Discharge Anticipated Discharge Date/Time: 09/30/24 16:18 Patient Disposition: Left Against Medical Advice Discharge Diagnosis: toxic metabolic encepahlaopathy Referrals: [facility] [Other] - 1 Day (RESUMPTION OF [facility] AND NEW HOME PHYSICAL THERAPY) [facility] [Primary Care Provider] - 1 Week Discharge Medications: New levetiracetam 500 mg Tablet 500 mg PO BID Qty: 180 0RF nifedipine 60 mg Tablet Extended Release 24hr 60 mg PO BID Qty: 180 0RF Protocol: Hold for SBP< HOLD for SBP < : 90 carvedilol 12.5 mg Tablet 12.5 mg PO BID Qty: 180 0RF Protocol: Hold for SBP/HR < HOLD for SBP < : 90 HOLD for HR < : 60 Continued sevelamer carbonate 800 mg tablet 800 mg PO TIDWM Lokelma 10 gram powder in packet 10 g PO SUTUTHSA Changed methadone 10 mg/mL Concentrate 30 mg PO DAILY Qty: 1 0RF Patient Comments: Per patients roommate (Isabel), she did not have it today 09/24/24 Discontinued carvedilol 6.25 mg tablet 6.25 mg PO BID amlodipine 5 mg tablet 5 mg PO DAILY Discharge Orders: Discharge Order (Routine); Ordered 09/30/24 Ordered By: Eladio Lainez Diet: Advance to usual diet Activity on Discharge: As tolerated Print Language: Dutch Care Plan Goals: 49-year-old lady came with seizure s/p intubation on admission and extubation(09/25/24), ESRD, and treatment noncompliance admitted with hyperkalemia/[place] ,toxic metabolic encepahlopathy due to suspected polysubstance use and esrd : Patient was found altered-found to have hyperkalemia and elevated renal in indices, QRS widening, QRS improved with bicarbonate, Nephrology was consulted for dialysis, in addition patient had hospital course complicated by seizures and requiring intubation, CTA head and negative, patient also got dialysis: Patient condition seems to be improved -mental status seems to be improved, patient was seen by Neurology recommended to start on Keppra 500 b.i.d. for new seizure disorder. Patient also has uncontrolled hypertension: We have adjusted medications Coreg adjusted to 12.5 mg p.o. b.i.d., and also adjusted nifedipine to 60 mg b.i.d., amlodipine stopped. Above was discussed with Nephrology. PT recommended rehab: But patient does not want to go to rehab. Patient today decided to leave against medical advice-she understand she has uncontrolled blood pressure and understand the complications of stroke heart attack and even in addition due to generalized weakness she can name and fall and have fracture she understand that. Staff was at bedside during this conversation patient understands and could able to spell back to us. She is alert oriented x3. Patient was also told to go to nearest emergency room for treatment. her methadone dose adjusted in icu was 30 mg qd.no signs of withdrawal. Also strongly advised to compliance with hemodialysis, also strongly advised to abstain from substance use. She refused to talk to the addiction team also. Health Concerns: as above. Plan of Treatment: as above. Assessment: as above.
== END 2024-09-30 18:14 | disposition left against medical advice (07) | DRG 53 ==
LOC: HO.ED 11:19 → HO.EDOVER 11:58 → HO.ICU 13:31 → HO.IMC 09-27 16:23
PROVIDERS: Physician Assistant Medical; Registered Nurse Community Health; Admitting Provider Internal Medicine Pulmonary Disease; Emergency Provider Emergency Medicine; Visit Provider Internal Medicine
DX: G40.901 Epilepsy, unspecified, not intractable, with status epilepticus (principal); G92.8 Other toxic encephalopathy; F05 Delirium due to known physiological condition; E85.9 Amyloidosis, unspecified; I12.0 Hypertensive chronic kidney disease with stage 5 chronic kidney disease or end stage renal disease; D63.1 Anemia in chronic kidney disease; L89.152 Pressure ulcer of sacral region, stage 2; N18.6 End stage renal disease; E87.5 Hyperkalemia; I16.0 Hypertensive urgency; F19.129 Other psychoactive substance abuse with intoxication, unspecified; F11.20 Opioid dependence, uncomplicated; Z99.2 Dependence on renal dialysis; Z20.822 Contact with and (suspected) exposure to COVID-19; Z91.158 Patient's noncompliance with renal dialysis for other reason; Z79.899 Other long term (current) drug therapy
CPT/HCPCS: 0241U; 36415; 36600; 70450; 71045; 71250; 72125; 74176; 80048; 80053; 80076; 80143; 80179; 80307; 82040; 82140; 82550; 82803; 82947; 83605; 83690; 83735; 83880; 84100; 84145; 84439; 84443; 84484; 84702; 85025; 85610; 86140; 86850; 86900; 86901; 86923; 87040; 90999; 92610; 93005; 94002; 94003; 94640; 97116; 97162; 99285; J0131; J0360; J0613; J0696; J1171; J1644; J1953; J2060; J2250; J2404; J2543; J2704; J3010; J3371; J3480; P9016; P9047

== ENCOUNTER → 2024-09-24 09:06 | Outpatient (BNV) | payer MEDICAID, SELFPAY | PROVIDERS: Admitting Provider Internal Medicine Pulmonary Disease; Emergency Provider Emergency Medicine; Visit Provider Internal Medicine Cardiovascular Disease | DX: R00.0 Tachycardia, unspecified (principal); R94.31 Abnormal electrocardiogram [ECG] [EKG] | CPT/HCPCS: 93010 ==

== ENCOUNTER → 2024-09-24 09:08 | Outpatient (BNV) | payer MEDICAID, SELFPAY | PROVIDERS: Emergency Provider Emergency Medicine; Visit Provider Radiology Diagnostic Radiology | DX: R41.82 Altered mental status, unspecified (principal); S19.9XXA Unspecified injury of neck, initial encounter; R56.9 Unspecified convulsions; R05.9 Cough, unspecified; Z45.02 Encounter for adjustment and management of automatic implantable cardiac defibrillator | CPT/HCPCS: 70450; 71045; 71250; 72125; 74176 ==

== ENCOUNTER → 2024-09-24 09:59 | Outpatient (BNV) | payer MEDICAID, SELFPAY | PROVIDERS: Emergency Provider Emergency Medicine; Visit Provider Internal Medicine Pulmonary Disease | DX: N18.6 End stage renal disease (principal); Z99.2 Dependence on renal dialysis; E87.5 Hyperkalemia; F05 Delirium due to known physiological condition | CPT/HCPCS: 99291 ==

== ENCOUNTER 2024-09-24 11:30 | Outpatient (BNV) | payer MEDICAID, SELFPAY | END 2024-09-26 09:59 | PROVIDERS: Admitting Provider Internal Medicine Pulmonary Disease; Emergency Provider Emergency Medicine; Visit Provider Internal Medicine Cardiovascular Disease | DX: I49.9 Cardiac arrhythmia, unspecified (principal) | CPT/HCPCS: 93010 ==

== ENCOUNTER → 2024-09-24 11:30 | Outpatient (BNV) | payer MEDICAID, SELFPAY | PROVIDERS: Admitting Provider Internal Medicine Pulmonary Disease; Emergency Provider Emergency Medicine; Visit Provider Psychiatry & Neurology Neurology | DX: R56.9 Unspecified convulsions (principal) | CPT/HCPCS: 99222 ==

== ENCOUNTER → 2024-09-24 11:30 | Outpatient (BNV) | payer MEDICAID, SELFPAY | PROVIDERS: Admitting Provider Internal Medicine Pulmonary Disease; Emergency Provider Emergency Medicine; Visit Provider Internal Medicine Critical Care Medicine | DX: N18.6 End stage renal disease (principal); Z99.2 Dependence on renal dialysis; F19.10 Other psychoactive substance abuse, uncomplicated; D64.9 Anemia, unspecified; F05 Delirium due to known physiological condition; R56.9 Unspecified convulsions | CPT/HCPCS: 99291 ==

== ENCOUNTER → 2024-09-24 11:30 | Outpatient (BNV) | payer MEDICAID, SELFPAY | PROVIDERS: Admitting Provider Internal Medicine Pulmonary Disease; Emergency Provider Emergency Medicine; Visit Provider Internal Medicine | DX: N18.6 End stage renal disease (principal) | CPT/HCPCS: 99231; 99232; 99239; 99499 ==

== ENCOUNTER → 2024-09-24 11:30 | Outpatient (BNV) | payer MEDICAID, SELFPAY | PROVIDERS: Admitting Provider Internal Medicine Pulmonary Disease; Emergency Provider Emergency Medicine; Visit Provider Internal Medicine Hypertension Specialist | DX: N18.6 End stage renal disease (principal); Z99.2 Dependence on renal dialysis | CPT/HCPCS: 90935 ==

== ENCOUNTER 2024-10-12 21:25 | Inpatient (IN) | payer MEDICAID, SELFPAY ==
--- NOTE | ~2024-10-12 | US_ITS ---
CLINICAL HISTORY: swelling, pain, hx ivda VENOUS DUPLEX ULTRASOUND LEFT UPPER EXTREMITY Comparison: None Findings: Accessible deep venous segments are fully compressible with normal Doppler color flow and spectral tracings. The visualized basilic and cephalic veins of the superficial system are patent. IMPRESSION: 1. Negative for left upper extremity deep vein thrombosis. This document has been electronically signed by: Sarah Ace DO on 10/18/2024 19:41:01
--- NOTE | 2024-10-12 21:38 | ECG_ITS ---
Test Reason : htn Blood Pressure : */* mmHG Vent. Rate : 99 BPM Atrial Rate : 99 BPM P-R Int : 108 ms QRS Dur : 76 ms QT Int : 368 ms P-R-T Axes : 17 90 45 degrees QTcB Int : 472 ms Sinus rhythm with short DE Rightward axis Borderline ECG When compared with ECG of 26-Sep-2024 09:59, QRS axis Shifted right ST no longer depressed in Inferior leads Referred By: Generic ED Physician Electronically Signed By: Tom Hansen
[2024-10-12 21:39] VITALS: BP 188/110; BP 201/108; PULSE 102; PULSE 94; RESP 14; TEMP 36.8; O2SAT 97; O2SAT 98; BMI 20.3
[2024-10-12 22:54] LABS: MANUAL DIFF FLAG NO
--- NOTE | 2024-10-12 22:54 | ED_ITS ---
HPI - General Adult General Chief complaint: Seizure Stated complaint: Witnessed seizure activity x5 mins Time Seen by Provider: 10/12/24 22:37 Source: patient Mode of arrival: EMS Limitations: no limitations History of Present Illness ED Provider: HPI narrative: Patient with history of end-stage renal disease on hemodialysis, hyperkalemia, pseudo seizures, epilepsy and anxiety supposed to be on Local number not taking it had dialysis earlier today and been having nausea vomiting diarrhea since yesterday which she gets usually when she gets anxiety comes here as feeling weak no vomiting or diarrhea after dialysis today on arrival patient noted to have blood pressure of 188/110 earlier patient did have a small seizure lasted only for few minutes patient was alert and awake witnessed by the friend Related Data Home Medications ?Medication ?Instructions ?Recorded ?Confirmed amlodipine 5 mg tablet 5 mg PO DAILY 09/24/24 09/24/24 carvedilol 6.25 mg tablet 6.25 mg PO BID 09/24/24 09/24/24 methadone 10 mg/mL oral concentrate 50 mg PO DAILY 09/24/24 09/26/24 sevelamer carbonate 800 mg tablet 800 mg PO TIDWM 09/24/24 09/24/24 sodium zirconium cyclosilicate 10 10 g PO SUTUTHSA 09/24/24 09/24/24 gram oral powder packet (Lokelma) Previous Rx's ?Medication ?Instructions ?Recorded carvedilol 12.5 mg tablet 12.5 mg PO BID #180 tabs 09/30/24 levetiracetam 500 mg tablet 500 mg PO BID #180 tabs 09/30/24 nifedipine 60 mg tablet,extended 60 mg PO BID #180 tabs 09/30/24 release 24 hr Allergies Allergy/AdvReac Type Severity Reaction Status Date / Time No Known Allergies Allergy Verified 10/12/24 21:46 Review of Systems 2 Review of Systems: Yes all other systems are reviewed and are negative PMFSH Past Medical History Medical History HTN (hypertension) Drug abuse ESRD (end stage renal disease) Social History Social History Alcohol intake: unknown Patient Tobacco Use Status: Tobacco use Unknown Smoked in Last 30 Days: No Use of substances other than those prescribed or required for medical reasons: No Advance Directives: Yes Advance Directives on File: Yes Advance Directives Date on File: 09/25/24 Do you have a plan to hurt others: No Plan service: No Physical Exam ED Vital Signs: Vital Signs - 24 hr 10/12/24 21:39 10/12/24 23:04 10/12/24 23:04 Temperature 98.3 F 98.1 F Pulse Rate 102 H 103 H Pulse Rate [Automated] 103 H Respiratory Rate 14 14 Blood Pressure 188/110 H 175/109 H Pulse Oximetry 97 98 Oxygen Delivery Method Room Air Room Air 10/12/24 23:46 10/12/24 23:55 Temperature 98.7 F Pulse Rate 102 H 100 Pulse Rate [Automated] Respiratory Rate 15 Blood Pressure 173/108 H 180/108 H Pulse Oximetry 97 Oxygen Delivery Method Room Air BMI result Body Mass Index 20.3 Appearance: Alert. Oriented X3. No acute distress. Eyes: pallor+ ENT: Pharynx normal. Oral Mucosa moist Neck: Normal inspection. Neck supple. CVS: Normal heart rate and rhythm. Pulses normal. Shiley catheter on the right side Respiratory: No respiratory distress. Equal air entry bilateral, no wheezing/rales/rhonchi Abdomen: Soft and nontender. Bowel sounds are present, no mass palpable, no CVA tenderness Skin: Skin warm and dry. Normal skin color. Normal skin turgor. Extremities: No lower extremity edema. No calf tenderness Neuro: Oriented X 3. No motor deficit. No sensory deficit.No cerebellar signs , cranial nerves II-XII intact Medications Administered Generic Name Dose Route Start Last Admin Trade Name Freq PRN Reason Stop Dose Admin Calcium Gluconate 2 gm in 100 mls @ 50 mls/hr 10/12/24 23:28 10/12/24 23:54 Calcium Gluconate IV 10/13/24 01:27 50 mls/hr ONCE ONE Administration Discontinued Medications Generic Name Dose Route Start Last Admin Trade Name Freq PRN Reason Stop Dose Admin Labetalol HCl 20 mg 10/12/24 23:50 10/12/24 23:55 Labetalol Hcl 100 Mg/20 Ml Vial IVPUSH 10/12/24 23:51 20 mg ONCE ONE Administration Lorazepam 1 mg 10/12/24 22:54 10/12/24 23:02 Lorazepam 2 Mg/Ml Vial IVPUSH 10/12/24 22:55 1 mg STAT STA Administration Ondansetron HCl 4 mg 10/12/24 22:54 10/12/24 23:02 Ondansetron Hcl 4 Mg/2 Ml Vial IVPUSH 10/12/24 22:55 4 mg ONCE ONE Administration Sodium Zirconium Cyclosilicate 10 gm 10/12/24 23:28 10/12/24 23:54 Sodium Zirconium Cyclosilicate 10 Gm Powd.Pack PO 10/12/24 23:29 10 gm ONCE ONE Administration Medical Decision Making Medical Decision Making [facility] Narrative: Patient's the acute hyperkalemia post dialysis with elevated blood pressure will give calcium gluconate on Lokelma rechecked potassium for elevated blood pressure will give labetalol no acute EKG changes of hyperkalemia Differential Diagnosis Differential Diagnoses: The differential diagnosis associated with the presentation includes Admission/Observation Consideration of admission/observation: Escalation of care including admission/observation considered Consult Healthcare Provider Management of the patient was discussed with: Hospitalist Lab Data [facility] Lab Attestation statement: I reviewed the patient's lab results. 10/12/24 22:49 10/12/24 22:49 Labs: Lab Results 10/12/24 10/12/24 10/12/24 Range/Units 22:49 22:49 22:49 WBC 8.9 (4.8-10.8) X10*3/uL RBC 2.69 L (4.20-5.50) X10*6/uL Hgb 8.1 L (12.0-16.0) g/dl Hct 24.6 L (37.0-47.0) % MCV 91.4 (80.0-98.0) fL MCH 30.1 (27.0-33.0) pg MCHC 32.9 (31.0-35.0) g/dl RDW 15.2 (11.0-16.0) % Plt Count 372 D (160-400) X10*3/uL MPV 9.3 L (9.4-12.3) fL Immature Gran % (Auto) 1.9 H (0.0-0.4) % Neut % (Auto) 85.4 H (45-73) % Lymph % (Auto) 9.4 L (20-40) % [place] % (Auto) 2.5 (2-11) % Eos % (Auto) 0.2 (0-4) % Baso % (Auto) 0.6 (0-2) % Lymph # (Auto) 0.8 L (1.2-4.9) X10*3/uL [place] # (Auto) 0.2 (0.1-1.2) X10*3/uL Eos # (Auto) 0.0 (0.0-0.4) X10*3/uL Baso # (Auto) 0.1 (0.0-0.2) X10*3/uL Abs Immat Gran (auto) 0.17 H (0.00-0.03) X10*3/uL Absolute Neuts (auto) 7.6 (2.0-8.3) x10*3/uL Absolute Nucleated RBC 0.000 (0.0-0.012) X10*3/uL Nucleated RBC % (auto) 0.0 (0.0-0.2) /100WBC Sodium 141 (135-145) mmol/L Potassium 6.1 H* D (3.3-5.1) mmol/L Chloride 97 (96-108) mmol/L Carbon Dioxide 28 (22-29) mmol/L Anion Gap 22 H (12-20) BUN 53 H (9-16) mg/dL Creatinine 8.08 H* (0.5-1.4) mg/dL Estim Creat Clear Calc 6.6 Estimated GFR 5 Random Glucose 75 (60-115) mg/dL Calcium 9.0 (8.4-10.2) mg/dL Total Bilirubin 0.5 0.5 (0.0-1.0) mg/dL Direct Bilirubin 0.2 (0.0-0.5) mg/dL AST 32 H 32 H (5-31) U/L ALT 15 (0-31) U/L Alkaline Phosphatase (39-117) U/L Troponin I High Sens (<3.5-17.0) ng/L Total Protein (6.5-8.0) g/dL Albumin (3.5-5.0) g/dL Lipase (8-78) U/L 10/12/24 10/12/24 10/12/24 Range/Units 22:49 22:49 22:49 WBC (4.8-10.8) X10*3/uL RBC (4.20-5.50) X10*6/uL Hgb (12.0-16.0) g/dl Hct (37.0-47.0) % MCV (80.0-98.0) fL MCH (27.0-33.0) pg MCHC (31.0-35.0) g/dl RDW (11.0-16.0) % Plt Count (160-400) X10*3/uL MPV (9.4-12.3) fL Immature Gran % (Auto) (0.0-0.4) % Neut % (Auto) (45-73) % Lymph % (Auto) (20-40) % [place] % (Auto) (2-11) % Eos % (Auto) (0-4) % Baso % (Auto) (0-2) % Lymph # (Auto) (1.2-4.9) X10*3/uL [place] # (Auto) (0.1-1.2) X10*3/uL Eos # (Auto) (0.0-0.4) X10*3/uL Baso # (Auto) (0.0-0.2) X10*3/uL Abs Immat Gran (auto) (0.00-0.03) X10*3/uL Absolute Neuts (auto) (2.0-8.3) x10*3/uL Absolute Nucleated RBC (0.0-0.012) X10*3/uL Nucleated RBC % (auto) (0.0-0.2) /100WBC Sodium (135-145) mmol/L Potassium (3.3-5.1) mmol/L Chloride (96-108) mmol/L Carbon Dioxide (22-29) mmol/L Anion Gap (12-20) BUN (9-16) mg/dL Creatinine (0.5-1.4) mg/dL Estim Creat Clear Calc Estimated GFR Random Glucose (60-115) mg/dL Calcium (8.4-10.2) mg/dL Total Bilirubin (0.0-1.0) mg/dL Direct Bilirubin (0.0-0.5) mg/dL AST (5-31) U/L ALT 12 (0-31) U/L Alkaline Phosphatase 141 H 142 H (39-117) U/L Troponin I High Sens 149.7 H* (<3.5-17.0) ng/L Total Protein 6.5 6.4 L (6.5-8.0) g/dL Albumin 3.5 (3.5-5.0) g/dL Lipase (8-78) U/L 10/12/24 Range/Units 22:49 WBC (4.8-10.8) X10*3/uL RBC (4.20-5.50) X10*6/uL Hgb (12.0-16.0) g/dl Hct (37.0-47.0) % MCV (80.0-98.0) fL MCH (27.0-33.0) pg MCHC (31.0-35.0) g/dl RDW (11.0-16.0) % Plt Count (160-400) X10*3/uL MPV (9.4-12.3) fL Immature Gran % (Auto) (0.0-0.4) % Neut % (Auto) (45-73) % Lymph % (Auto) (20-40) % [place] % (Auto) (2-11) % Eos % (Auto) (0-4) % Baso % (Auto) (0-2) % Lymph # (Auto) (1.2-4.9) X10*3/uL [place] # (Auto) (0.1-1.2) X10*3/uL Eos # (Auto) (0.0-0.4) X10*3/uL Baso # (Auto) (0.0-0.2) X10*3/uL Abs Immat Gran (auto) (0.00-0.03) X10*3/uL Absolute Neuts (auto) (2.0-8.3) x10*3/uL Absolute Nucleated RBC (0.0-0.012) X10*3/uL Nucleated RBC % (auto) (0.0-0.2) /100WBC Sodium (135-145) mmol/L Potassium (3.3-5.1) mmol/L Chloride (96-108) mmol/L Carbon Dioxide (22-29) mmol/L Anion Gap (12-20) BUN (9-16) mg/dL Creatinine (0.5-1.4) mg/dL Estim Creat Clear Calc Estimated GFR Random Glucose (60-115) mg/dL Calcium (8.4-10.2) mg/dL Total Bilirubin (0.0-1.0) mg/dL Direct Bilirubin (0.0-0.5) mg/dL AST (5-31) U/L ALT (0-31) U/L Alkaline Phosphatase (39-117) U/L Troponin I High Sens (<3.5-17.0) ng/L Total Protein (6.5-8.0) g/dL Albumin 3.5 (3.5-5.0) g/dL Lipase 15 (8-78) U/L Independent Interpretation I performed an independent interpretation of an: EKG Interpretation: Normal sinus rhythm heart rate 99 beats per minutenormal axis short AK interval no acute STT wave changes no acute ischemia Critical Care Time Critical Care Time Critical Care Time: Yes Total Critical Care Time: 35 Attestation: The patient was critically ill with a high probability of imminent or life threatening deterioration. I spent greater than 40???minutes of discontinuous time evaluating the patient,delivering critical care at the bedside, discussing and evaluating pertinent data with consultants. Critical care time does not include time spent performing separately billable procedures or teaching. Total time spent performing critical care was 35???minutes. Discharge Plan Discharge Clinical Impression: ESRD (end stage renal disease), Acute hyperkalemia, Seizure Patient Disposition: Admitted As Inpatient Print Language: Grenadian
[2024-10-12 22:55] LABS: Basophils Absolute Auto 0.1 X10*3/uL (0.0-0.2); Basophils Percent Auto 0.6 % (0-2); Eosinophils Percent Auto 0.2 % (0-4); Hematocrit 24.6 % (37.0-47.0); Hemoglobin 8.1 g/dl (12.0-16.0); Imm Gran Abs Auto 0.17 X10*3/uL (0.00-0.03); Imm Gran Pct Auto 1.9 % (0.0-0.4); Lymphocytes Absolute Auto 0.8 X10*3/uL (1.2-4.9); Lymphocytes Percent Auto 9.4 % (20-40); Mean Corpuscular HGB Conc 32.9 g/dl (31.0-35.0); Mean Corpuscular Hemoglobin 30.1 pg (27.0-33.0); Mean Corpuscular Volume 91.4 fL (80.0-98.0); Mean Platelet Volume 9.3 fL (9.4-12.3); Monocytes Absolute Auto 0.2 X10*3/uL (0.1-1.2); Monocytes Percent Auto 2.5 % (2-11); Neutrophils Absolute Auto 7.6 x10*3/uL (2.0-8.3); Neutrophils Percent Auto 85.4 % (45-73); Platelet Count 372 X10*3/uL (160-400); Red Blood Count 2.69 X10*6/uL (4.20-5.50); Red Cell Distribution Width 15.2 % (11.0-16.0); White Blood Count 8.9 X10*3/uL (4.8-10.8)
[2024-10-12] MEDS: ondansetron HCL 4 MG/2 ML VIAL IVPUSH (23:02)
[2024-10-12] MEDS: LORazepam 2 MG/ML VIAL 1 MG IVPUSH (23:02)
[2024-10-12 23:04] VITALS: BP 175/109; PULSE 103; RESP 14; TEMP 36.7; O2SAT 98
[2024-10-12 23:14] LABS: Alanine Aminotransferase 12 U/L (0-31); Albumin Level 3.5 g/dL (3.5-5.0); Alkaline Phosphatase 142 U/L (39-117); Aspartate Amino Transferase 32 U/L (5-31); Bilirubin Direct 0.2 mg/dL (0.0-0.5); Bilirubin Total 0.5 mg/dL (0.0-1.0); Lipase 15 U/L (8-78); Total Protein 6.4 g/dL (6.5-8.0)
[2024-10-12 23:20] LABS: Alanine Aminotransferase 15 U/L (0-31); Albumin Level 3.5 g/dL (3.5-5.0); Alkaline Phosphatase 141 U/L (39-117); Anion Gap 22 (12-20); Aspartate Amino Transferase 32 U/L (5-31); Bilirubin Total 0.5 mg/dL (0.0-1.0); Blood Urea Nitrogen 53 mg/dL (9-16); Carbon Dioxide 28 mmol/L (22-29); Chloride 97 mmol/L (96-108); Creatinine Clr Calc Pharmacy 6.6; Estimated Glomerular Filt Rate 5; Glucose Random 75 mg/dL (60-115); Potassium 6.1 mmol/L (3.3-5.1); Sodium 141 mmol/L (135-145); Total Protein 6.5 g/dL (6.5-8.0)
[2024-10-12 23:26] LABS: Troponin-I High Sensitivity 149.7 ng/L (<3.5-17.0)
[2024-10-12 23:46] VITALS: BP 173/108; PULSE 102; RESP 15; TEMP 37.1; O2SAT 97
[2024-10-12] MEDS: Sodium Zirconium Cyclosilicate 10 GM POWD.PACK PO (23:54)
[2024-10-12] MEDS: Calcium Gluconate/NaCl,Iso-Osm 2 GM/100 ML PLAST..BAG IV (23:54)
[2024-10-12 23:55] VITALS: BP 180/108; PULSE 100
[2024-10-12] MEDS: Labetalol HCL 100 MG/20 ML VIAL 20 MG IVPUSH (23:55)
[2024-10-13] VITALS (12 sets, daily range): BP systolic 150–195; BP diastolic 82–113; PULSE 81–93; RESP 14–20; TEMP 36.6–37.2; O2SAT 94–99
--- NOTE | 2024-10-13 00:43 | P.HPHOSP_ITS ---
History of Present Illness Date of Service: 10/13/24 <ARLIN Villa Last Filed: 10/13/24 01:00> Attending physician on admission: Festus Moran <ARLIN Villa Last Filed: 10/13/24 01:00> Chief Complaint: seizure <ARLIN Villa Last Filed: 10/13/24 01:00> Patient is a 49-year-old female with a past medical history significant for end- stage renal disease on hemodialysis Thursday, chronic hyperkalemia, substance use disorder on methadone, pseudoseizures, who presented to the ED due to a witnessed seizure lasting about 5 minutes. Previously she was taking Keppra however she reports she does not take any antiseizure medications. She reports nausea and vomiting for multiple hours yesterday morning preceding the seizure episode. She denies any urinary or bowel incontinence during the seizure episode. She reports that she can remember the episode but was unable to talk during it. She has not had any nausea or vomiting since. She is unaware if she had nausea or vomiting prior to her previous seizure-like activity. She did go to hemodialysis earlier today and states that she felt very sick and weak afterwards which is not common for her. She denies any chest pain, shortness of breath, cough, abdominal pain, diarrhea, urinary symptoms including frequency, urgency or dysuria. <ARLIN Villa Last Filed: 10/13/24 01:00> Review of Systems 2 Constitutional: Constitutional: Denies body ache(s), Denies chills, Reports fatigue and Denies headache(s) <ARLIN Villa Last Filed: 10/13/24 01:00> Eyes: Eyes: Denies change in vision and Denies photophobia <ARLIN Villa Last Filed: 10/13/24 01:00> ENT: Denies headache(s), Denies nasal congestion, Denies nasal discharge, Denies odynophagia and Denies sore throat <ARLIN Villa Last Filed: 10/13/24 01:00> Cardiovascular: Cardiovascular: Denies chest pain, Denies rapid heart rate, Denies leg edema, Denies lightheadedness and Denies dyspnea <Kelsey Alcaraz PA-C [employer] Last Filed: 10/13/24 01:00> Respiratory: Respiratory: Denies chest congestion, Denies cough, Denies dyspnea and Denies wheezing <DIEGO VillaAretha [employer] Last Filed: 10/13/24 01:00> Gastrointestinal: Gastrointestinal: Denies abdominal pain, Denies coffee ground emesis, Denies diarrhea, Reports nausea, Denies odynophagia, Reports vomiting and Denies hematemesis <Kelsey Alcaraz PA-C [employer] Last Filed: 10/13/24 01:00> Genitourinary: Genitourinary: Denies difficulty voiding, Denies dysuria, Denies urinary incontinence and Denies urinary urgency <DIEGO Villa Aretha [employer] Last Filed: 10/13/24 01:00> Musculoskeletal: Musculoskeletal: Denies back pain and Denies myalgias < DIEGO VillaAretha [employer] Filed: 10/13/24 01:00> Integumentary/Breasts: Skin/Breast: Denies rash <DIEGO VillaAretha [employer] Last Filed: 10/13/24 01:00> Neurologic: Denies headache(s), Reports convulsions and Reports seizure-like activity <DIEGO VillaAretha [employer] Last Filed: 10/13/24 01:00> Endocrine: Endocrine: Reports fatigue <Kelsey Alcaraz PA-C [employer] Filed: 10/13/24 01:00> Allergic/Immunologic: Allergic/Immunologic: Denies wheezing <Kelsey Alcaraz PA-C [employer] Last Filed: 10/13/24 01:00> [facility] Medical History: Medical History HTN (hypertension) Drug abuse ESRD (end stage renal disease) <Kelsey Alcaraz PA-C [employer] Last Filed: 10/13/24 01:00> Functional capacity: independent ambulation <Kelsey Alcaraz PA-C [employer] Last Filed: 10/13/24 01:00> Social History: Social History Alcohol intake: unknown Patient Tobacco Use Status: Tobacco use Unknown Smoked in Last 30 Days: No Use of substances other than those prescribed or required for medical reasons: No Advance Directives: Yes Advance Directives on File: Yes Advance Directives Date on File: 09/25/24 Do you have a plan to hurt others: No Plan service: No <Kelsey Alcaraz PA-C - Last Filed: 10/13/24 01:00> Narrative: No smoking, alcohol or drug use. Patient reports she is on methadone 35 mg by [facility] <Kelsey Alcaraz PA-C - Last Filed: 10/13/24 01:00> Meds Allergies/Adverse reactions: Allergies Allergy/AdvReac Type Severity Reaction Status Date / Time No Known Allergies Allergy Verified 10/12/24 21:46 <Kelsey Alcaraz PA-C - Last Filed: 10/13/24 01:00> Active Medications: Current Medications Acetaminophen (Acetaminophen 325 Mg Tablet) 650 mg PO Q6H PRN PRN Reason: Pain, Mild 1-3,fever,headache Calcium Carbonate (Calcium Carbonate 750 Mg Tab.Chew) 750 mg PO Q4H PRN PRN Reason: Heartburn Heparin Sodium (Porcine) (Heparin Sodium,Porcine 5,000 Unit/Ml Vial) 5,000 unit SUBCUT Q12H ANNA MARIE Calcium Gluconate (Calcium Gluconate) 2 gm in 100 mls @ 50 mls/hr IV ONCE ONE Stop: 10/13/24 01:27 Last Admin: 10/12/24 23:54 Dose: 50 mls/hr Magnesium Hydroxide (Milk Of Magnesia 30 Ml Oral.Susp) 30 ml PO DAILY PRN PRN Reason: Constipation Melatonin (Melatonin 3 Mg Tablet) 6 mg PO BEDTIME PRN PRN Reason: Insomnia Ondansetron HCl (Ondansetron Hcl 4 Mg/2 Ml Vial) 4 mg IVPUSH Q8H PRN PRN Reason: Nausea and Vomiting Sodium Chloride (0.9 % Sodium Chloride Flush 3 Ml Syringe) 3 ml IVFLUSH QSHIFT ANNA MARIE <Kelsey Alcaraz PA-C - Last Filed: 10/13/24 01:00> Home medications: Home Medications ?Medication ?Instructions ?Recorded ?Confirmed ?Last Taken ?Type amlodipine 5 mg tablet 5 mg PO DAILY 09/24/24 09/24/24 Unknown History carvedilol 6.25 mg tablet 6.25 mg PO BID 09/24/24 09/24/24 Unknown History methadone 10 mg/mL oral concentrate 50 mg PO DAILY 09/24/24 09/26/24 Unknown History sevelamer carbonate 800 mg tablet 800 mg PO TIDWM 09/24/24 09/24/24 Unknown History sodium zirconium cyclosilicate 10 10 g PO SUTUTHSA 09/24/24 09/24/24 Unknown History gram oral powder packet (Lokelco) <Kelsey Alcaraz PA-C - Last Filed: 10/13/24 01:00> Physical Exam 2 Vital Signs and Narrative: Vital Signs: Last Vital Signs Temp 98.7 F 10/12/24 23:46 Pulse 100 10/12/24 23:55 Resp 15 10/12/24 23:46 BP 180/108 H 10/12/24 23:55 Pulse Ox 97 10/12/24 23:46 O2 Del Method Room Air 10/12/24 23:46 BMI result Body Mass Index 20.3 <Kelsey Alcaraz PA-C - Last Filed: 10/13/24 01:00> General: AOx3, no acute distress Resp: CTA bilaterally CVS: S1, S2, RRR GI: +BS, NT, no distention Skin: Warm, dry Neuro: Cranial nerves II-XII grossly intact bilaterally. Motor grossly intact bilaterally Extremities: No LE edema Psych: Appropriate affect <Kelsey Alcaraz PA-C - Last Filed: 10/13/24 01:00> Eyes: Direct Ophthalmoscopy: No photophobia <Kelsey Alcaraz PA-C - Last Filed: 10/13/24 01:00> Results Labs CBC and Chem 7: 10/12/24 22:49 10/12/24 22:49 <ARLIN Villa Last Filed: 10/13/24 01:00> Labs: Laboratory Results - last 24 hr 10/12/24 10/12/24 10/12/24 22:49 22:49 22:49 MCV 91.4 MCH 30.1 MCHC 32.9 RDW 15.2 Plt Count 372 D MPV 9.3 L Immature Gran % (Auto) 1.9 H Neut % (Auto) 85.4 H Lymph % (Auto) 9.4 L [place] % (Auto) 2.5 Eos % (Auto) 0.2 Baso % (Auto) 0.6 Lymph # (Auto) 0.8 L [place] # (Auto) 0.2 Eos # (Auto) 0.0 Baso # (Auto) 0.1 Abs Immat Gran (auto) 0.17 H Absolute Neuts (auto) 7.6 Absolute Nucleated RBC 0.000 Nucleated RBC % (auto) 0.0 Anion Gap 22 H Estim Creat Clear Calc 6.6 Estimated GFR 5 Random Glucose 75 Calcium 9.0 Total Bilirubin 0.5 0.5 Direct Bilirubin 0.2 AST 32 H 32 H ALT 15 Alkaline Phosphatase Total Protein Albumin Lipase 10/12/24 10/12/24 10/12/24 22:49 22:49 22:49 MCV MCH MCHC RDW Plt Count MPV Immature Gran % (Auto) Neut % (Auto) Lymph % (Auto) [place] % (Auto) Eos % (Auto) Baso % (Auto) Lymph # (Auto) [place] # (Auto) Eos # (Auto) Baso # (Auto) Abs Immat Gran (auto) Absolute Neuts (auto) Absolute Nucleated RBC Nucleated RBC % (auto) Anion Gap Estim Creat Clear Calc Estimated GFR Random Glucose Calcium Total Bilirubin Direct Bilirubin AST ALT 12 Alkaline Phosphatase 141 H 142 H Total Protein 6.5 6.4 L Albumin 3.5 Lipase 10/12/24 22:49 MCV MCH MCHC RDW Plt Count MPV Immature Gran % (Auto) Neut % (Auto) Lymph % (Auto) [place] % (Auto) Eos % (Auto) Baso % (Auto) Lymph # (Auto) [place] # (Auto) Eos # (Auto) Baso # (Auto) Abs Immat Gran (auto) Absolute Neuts (auto) Absolute Nucleated RBC Nucleated RBC % (auto) Anion Gap Estim Creat Clear Calc Estimated GFR Random Glucose Calcium Total Bilirubin Direct Bilirubin AST ALT Alkaline Phosphatase Total Protein Albumin 3.5 Lipase 15 <ARLIN Villa Last Filed: 10/13/24 01:00> Assessment and Plan (1) Seizure: Status: Acute <Kelsey Alcaraz PA-C - Last Filed: 10/13/24 01:00> (2) Acute hyperkalemia: Status: Acute <Kelsey Alcaraz PA-C - Last Filed: 10/13/24 01:00> (3) ESRD (end stage renal disease) on dialysis: Status: Acute <Kelsey Alcaraz PA-C - Last Filed: 10/13/24 01:00> (4) Elevated troponin: Status: Acute <Kelsey Alcaraz PA-C - Last Filed: 10/13/24 01:00> Patient is a 49-year-old female with a past medical history significant for end-stage renal disease on hemodialysis Thursday, chronic hyperkalemia, substance use disorder on methadone, pseudoseizures, who presented to the ED due to a witnessed seizure lasting about 5 minutes. pseudoseizure, likely due to vomiting and HTN - witnessed by friend, was alert and awake during seizure, not taking keppra as previously prescribed - given 1mg ativan and labetalol 40mg for BP - nausea and vomiting subsidd, given zofran in ED - keppra 500mg PO x1 - carvedilol 25mg PO x1 - monitor BP acute on chronic hyperkalemia - pt non-compliant with lokelma at home - given lokelma, calcium and insulin - monitor BMP elevated troponin, secondary to ESRD - trop 195.9, 147.9 on repeat - EKG with NSR, short MD interval ESRD on HD MWF - nephrology consult for HD ARETHA - on methadone through [facility], will need dose confirmed med rec not complete upon admission full code VTE prophy: heparin Pt with psuedoseizure likely due to vomiting and HTN, complicated by hyperkalemia, requiring admission for monitoring and dialysis for at least 2 midnights stay. <Kelsey Alcaraz PA-C - Last Filed: 10/13/24 01:00> Patient is a 49-year-old female with a past medical history significant for end-stage renal disease on hemodialysis Thursday, chronic hyperkalemia, substance use disorder on methadone, pseudoseizures, who presented to the ED due to a witnessed seizure lasting about 5 minutes. pseudoseizure Hypertensive urgency - witnessed by friend, was alert and awake during seizure, not taking keppra as previously prescribed - given 1mg ativan and labetalol 40mg for BP - nausea and vomiting subsidd, given zofran in ED - keppra 500mg PO x1 - carvedilol 25mg PO x1 - monitor BP acute on chronic hyperkalemia - pt non-compliant with lokelma at home - given lokelma, calcium and insulin - monitor BMP elevated troponin, secondary to ESRD - trop 195.9, 147.9 on repeat - EKG with NSR, short MD interval ESRD on HD MWF - nephrology consult for HD ARETHA - on methadone through [facility], will need dose confirmed med rec not complete upon admission full code VTE prophy: heparin Pt with psuedoseizure likely due to vomiting and HTN, complicated by hyperkalemia, requiring admission for monitoring and dialysis for at least 2 midnights stay. <Festus Moran MD - Last Filed: 10/13/24 02:26> Quality Stroke Does the patient have a stroke diagnosis?: No <Kelsey Alcaraz PA-C - Last Filed: 10/13/24 01:00> VTE Prior VTE?: No <Kelsey Alcaraz PA-C - Last Filed: 10/13/24 01:00> VTE Risk Level:: Medical - moderate - high <Kelsey Alcaraz PA-C - Last Filed: 10/13/24 01:00> VTE Device Contraindication: Treatment Not Indicated <Kelsey Alcaraz PA-C - Last Filed: 10/13/24 01:00> VTE Drug Contraindication: N/A - Med Ordered <Kelsey Alcaraz PA-C - Last Filed: 10/13/24 01:00>
[2024-10-13] MEDS: Heparin Sodium,Porcine 5,000 UNIT/ML VIAL 5000 UNIT SUBCUT ×3 (01:00→23:42)
[2024-10-13] MEDS: levETIRAcetam 500 MG TABLET PO ×3 (01:02→20:08)
[2024-10-13] MEDS: Dextrose 50 % 25 GM/50 ML SYRINGE IVPUSH (01:02)
[2024-10-13] MEDS: carvediloL 25 MG TABLET PO (01:02)
[2024-10-13] MEDS: Insulin Regular, Human 100 UNIT/ML 10 ML VIAL IVPUSH (01:02)
--- NOTE | 2024-10-13 01:56 | MHC.EDTECH ---
0200 rounding done ,vitals taken ,RN Tameka is aware of pt high blood Pressure .Patient resting quietly with eyes closed ,Patient belonging list done .
[2024-10-13 02:45] LABS: Glucose, Whole Blood 71 mg/dL (60-115)
--- NOTE | 2024-10-13 03:39 | MHC.EDTECH ---
Patient was reposition and boosted up in bed ,vitals taken ,Patient refused to wear hospital socks ,and choose to wear her own house slippers in bed ,RN aware ,Patient seems latergic ,blood sugar check it was 62 RN aware .
[2024-10-13 04:03] LABS: Glucose, Whole Blood 62 mg/dL (60-115)
--- NOTE | 2024-10-13 04:07 | MHC.EDTECH ---
blood sugar re check ,PHYLLIS English is aware of result of 65 .
[2024-10-13 04:10] LABS: Glucose, Whole Blood 65 mg/dL (60-115)
--- NOTE | 2024-10-13 04:10 | PC.NURSE ---
IV infiltrated causing delay in admin of bp meds. PT bp has improved though to 150s/99. PT also appearing diaphoretic, and is lethargic. POC obtained- 62. Notified provider. Call mixing house operator or ultrasound guided line assistance
--- NOTE | 2024-10-13 04:22 | MHC.EDTECH ---
Patient seem more and more latergic ,RN aware ,also Patient warm to touch ,Rectal temp taken ,no fever ,Patient Pants and house slippers was taken off and kept with other belongings ,Vanessa Care given ,All safety measure in Place .
--- NOTE | 2024-10-13 04:56 | MHC.EDTECH ---
Patient blood sugar re check at this time ,PHYLLIS English is aware of result 76.
[2024-10-13 05:03] LABS: Glucose, Whole Blood 76 mg/dL (60-115)
--- NOTE | 2024-10-13 05:26 | PC.NURSE ---
Nursing driver supervisor made multiple attempts to place Ultrasound guided line. Attempts were unsuccessful. Hospitalist notified, Ed provider attempted to place EJ- PT refused. PT also refused morning lab work.
--- NOTE | 2024-10-13 06:30 | MHC.EDTECH ---
Patient was more awake ate a sandwich and drank 600 ml juice .vitals taken .All safety measure in Place .
--- NOTE | 2024-10-13 06:32 | MHC.EDTECH ---
Patient is a dialysis Patient and has not void all shift RN Tameka aware .
--- NOTE | 2024-10-13 08:59 | PHA.MEDREC ---
Addendum entered by Daphney Cummings [facility] 10/13/24 09:46: Patient was just discharged on 09/30/24, updates upon discharge amlodipine was stopped, carvedilol was increased to 12.5 mg bid, and nifedipine was added. Methadone had been decreased to 30 mg, will need to confirm current dose, Keppra was added at last admission, does not look like patient picked up prescription after discharge. Original Note: Pharmacy Consult ? Medication Reconciliation Pharmacy has completed the medication reconciliation. Spoke with patient and she was able to confirm her medications names but didn't know any doses and how she was taking them except for her Methadone, she confirmed she takes 55mg daily of that and she last took that 2 days ago. I asked if she takes anything for seizures or epilepsy and the patient stated no and that there is no history of seizures running in her family or for her . I called [facility], since the patient has been recently filling there and confirmed she has been filling there recently, and they stated they have no script on file there for her. Patient had [facility] as preferred pharmacy and I called them and they confirmed they have the Carvedilol 12.5mg tab, Levetiracetam 500mg (Keppra) tab and Nifedipine 60mg tab 1 twice a day ready for olive picker there from 09/30; I kept the Keppra and Nifedipine on the [facility] unconfirmed and will let the provider know about those.
--- NOTE | 2024-10-13 09:35 | PC.NURSE ---
Assumed care of pt at 0700. Pt resting in bed quietly, a/ox3, respirations even and unlabored, no increased wob/sob noted, no signs of distress. HR 90s on wagon drill operator, NSR. Ultrasound guided IV in left AC infiltrated, 20g Ultrasound guided IV placed Right AC, patent and asymptomatic. Pt up oob to commode 1 assisted with steady gait. Call winkler winkler within reach, all needs met at this time.
--- NOTE | 2024-10-13 09:43 | MHC.CM.PN ---
Addendum entered by Corrina Beach 10/13/24 10:52: PCP is Dr. Judson Hansen. Original Note: Patient lives in an apartment with a Roommate and is functionally independent. Patient receives home delivered Methadone from [facility] and LEANN Zeng M/W/F @ . [place]/resume said services is Patient's goal and CM has initiated and will follow for dc planning. CM awaits name of PCP from A and Mother will transport to home.
[2024-10-13] MEDS: carvediloL 12.5 MG TABLET PO ×2 (10:05→20:08)
[2024-10-13] MEDS: NIFEdipine ER 60 MG TAB.ER.24 PO ×2 (10:05→20:09)
[2024-10-13] MEDS: 0.9 % Sodium Chloride Flush 3 ML SYRINGE IVFLUSH ×2 (10:06→17:26)
[2024-10-13] MEDS: ondansetron HCL 4 MG/2 ML VIAL IVPUSH ×2 (10:14→19:03)
--- NOTE | 2024-10-13 11:34 | PM.CNNEP ---
History of Present Illness Reason for Consult Consult date: 10/13/24 Chief Complaint Chief complaint: abnormal electrolytes History of Present Illness Narrative: 49 year old patient with history of ESRD admitted with seizure. In summary she presented to the ED due to a witnessed seizure lasting about 5 minutes. She reports she does not take any antiseizure medications. She reports nausea and vomiting for multiple hours yesterday morning preceding the seizure episode. Review of Systems Review of Systems 10 points ROS negative except for pertinent in HPI PMFSH Past Medical History Medical History HTN (hypertension) Drug abuse ESRD (end stage renal disease) Social History Social History Alcohol intake: unknown Patient Tobacco Use Status: Tobacco use Unknown Smoked in Last 30 Days: No Use of substances other than those prescribed or required for medical reasons: No Advance Directives: Yes Advance Directives on File: Yes Advance Directives Date on File: 09/25/24 Do you have a plan to hurt others: No Plan Nutrition Risks: No Nutritional Risk service: No Meds Allergies Allergy/AdvReac Type Severity Reaction Status Date / Time No Known Allergies Allergy Verified 10/12/24 21:46 Active Medications: Current Medications Acetaminophen (Acetaminophen 325 Mg Tablet) 650 mg PO Q6H PRN PRN Reason: Pain, Mild 1-3,fever,headache Calcium Carbonate (Calcium Carbonate 750 Mg Tab.Chew) 750 mg PO Q4H PRN PRN Reason: Heartburn Carvedilol (Carvedilol 12.5 Mg Tablet) 12.5 mg PO BID [facility]; Protocol Last Admin: 10/13/24 10:05 Dose: 12.5 mg Heparin Sodium (Porcine) (Heparin Sodium,Porcine 5,000 Unit/Ml Vial) 5,000 unit SUBCUT Q12H [facility] Last Admin: 10/13/24 01:00 Dose: 5,000 unit Levetiracetam (Levetiracetam 500 Mg Tablet) 500 mg PO BID [facility] Last Admin: 10/13/24 10:06 Dose: 500 mg Magnesium Hydroxide (Milk Of Magnesia 30 Ml Oral.Susp) 30 ml PO DAILY PRN PRN Reason: Constipation Melatonin (Melatonin 3 Mg Tablet) 6 mg PO BEDTIME PRN PRN Reason: Insomnia Nifedipine (Nifedipine Er 60 Mg Tab.Er.24) 60 mg PO BID [facility]; Protocol Last Admin: 10/13/24 10:05 Dose: 60 mg Ondansetron HCl (Ondansetron Hcl 4 Mg/2 Ml Vial) 4 mg IVPUSH Q8H PRN PRN Reason: Nausea and Vomiting Last Admin: 10/13/24 10:14 Dose: 4 mg Sodium Chloride (0.9 % Sodium Chloride Flush 3 Ml Syringe) [facility] [facility] Last Admin: 10/13/24 10:06 Dose: 3 ml Home Medications ?Medication ?Instructions ?Recorded ?Confirmed ?Last Taken ?Type methadone 10 mg/mL oral concentrate 30 mg PO DAILY 09/24/24 09/26/24 Unknown History sevelamer carbonate 800 mg tablet 800 mg PO TIDWM 09/24/24 10/13/24 10/11/24 History sodium zirconium cyclosilicate 10 10 g PO SUTUTHSA 09/24/24 10/13/24 10/11/24 History gram oral powder packet ([facility]) nifedipine 60 mg tablet,extended 60 mg PO BID 10/13/24 10/13/24 Unknown History release 24 hr Physical Exam Vital Signs: Last Vital Signs Temp 98.3 F 10/13/24 10:08 Pulse 86 10/13/24 10:08 Resp 15 10/13/24 10:08 BP 162/87 H 10/13/24 10:08 Pulse Ox 96 10/13/24 10:08 O2 Del Method Room Air 10/13/24 10:08 BMI result Body Mass Index 20.3 Const General: alert and awake HEENT Head: Yes normocephalic and Yes atraumatic Neck Neck: Yes supple Resp Auscultation: clear to auscultation bilaterally Cardio Heart sounds: S1 normal heart sound present and S2 normal heart sound present GI Palpation (GI): Soft to palpation and nontender Extrem General: Yes normal to inspection Results Lab Results 10/12/24 22:49 10/12/24 22:49 Lab results: Chemistry 10/12/24 22:49 Sodium 141 Potassium 6.1 H* D Carbon Dioxide 28 BUN 53 H Creatinine 8.08 H* Calcium 9.0 Hematology 10/12/24 22:49 WBC 8.9 Hgb 8.1 L Plt Count 372 D Assessment and Plan (1) ESRD (end stage renal disease): Status: Acute (2) Hyperkalemia: Status: Acute (3) Anemia: Status: Acute Plan ESRD on HD at [facility] via [facility] followed by Dr Dooley presented with seizure nephrogenic anemia REC HD per schedule sodium zirconium as needed renal diet P binders LEONEL Procedures Date of Service Date of Service: 10/13/24
[2024-10-13 16:06] LABS: Hematocrit 22.4 % (37.0-47.0); Hemoglobin 7.2 g/dl (12.0-16.0); Mean Corpuscular HGB Conc 32.1 g/dl (31.0-35.0); Mean Corpuscular Hemoglobin 29.4 pg (27.0-33.0); Mean Corpuscular Volume 91.4 fL (80.0-98.0); Platelet Count 326 X10*3/uL (160-400); Red Blood Count 2.45 X10*6/uL (4.20-5.50); Red Cell Distribution Width 15.4 % (11.0-16.0); White Blood Count 13.8 X10*3/uL (4.8-10.8)
[2024-10-13 16:26] LABS: Anion Gap 16 (12-20); Blood Urea Nitrogen 58 mg/dL (9-16); Calcium 8.5 mg/dL (8.4-10.2); Carbon Dioxide 30 mmol/L (22-29); Chloride 96 mmol/L (96-108); Creatinine Clr Calc Pharmacy 6.2; Estimated Glomerular Filt Rate 5; Glucose Random 106 mg/dL (60-115); Potassium 5.3 mmol/L (3.3-5.1); Sodium 137 mmol/L (135-145)
[2024-10-13 16:31] LABS: Anion Gap 17 (12-20); Blood Urea Nitrogen 59 mg/dL (9-16); Calcium 8.5 mg/dL (8.4-10.2); Carbon Dioxide 30 mmol/L (22-29); Chloride 96 mmol/L (96-108); Creatinine Clr Calc Pharmacy 6.2; Estimated Glomerular Filt Rate 5; Glucose Random 105 mg/dL (60-115); Potassium 5.4 mmol/L (3.3-5.1); Sodium 138 mmol/L (135-145)
--- NOTE | 2024-10-13 17:39 | PM.EVENT ---
Event Note Date of Service: 10/14/24 Event Note: This patient is seen and examined by hospitalist service this morning, seen and examined again seems feeling improving Physical exam and assessment and plan coordinated in APCs note H&P, Agree with the plan in addition: ?pseudoseizure: no new episode last admission started on keppra for new onset seizure dis. Hyperkalemia: Patient received Lokelma, calcium and insulin last night: Hyperkalemia seems to be improving. ESRD/hyperkalemia: Patient is followed by Nephrology Uncontrolled hypertension: Patient blood pressure medications including nifedipine and Coreg started, monitor BP closely ARETHA- on methadone through [facility], will need dose confirmed Time Spent With Patient Time: Total time managing care of this patient today ____ minutes.
--- NOTE | 2024-10-13 18:16 | PC.NURSE ---
Addendum entered by Ivette Cortez 10/13/24 18:45: verification form faxed to pharmacy. Original Note: Methadone verified w CLARICE Pearson [phone], Martha Last dosed 10/12/24 @ 0535 w 30mg at the clinic w 6 take home bottles given. Clinic notified of admission.
--- NOTE | 2024-10-13 19:18 | HE.PHANOTE ---
Re Methadone received verification from nursing, pt receives 30mg from [facility] and got a dose yesterday 10/12/24 and was sent home with 6 take home bottles.
[2024-10-13] MEDS: Sevelamer Carbonate Tablet 800 MG TABLET PO (20:08)
[2024-10-13] MEDS: Loperamide HCl 2 MG CAPSULE 4 MG PO (20:08)
[2024-10-13] MEDS: Sodium Zirconium Cyclosilicate 10 GM POWD.PACK PO (20:09)
[2024-10-13] MEDS: methADONE HCl 20 MG/2 ML ORAL.CONC 30 MG PO (22:21)
[2024-10-14] VITALS: BP 156/94; PULSE 77; RESP 18; TEMP 36.7; O2SAT 95
[2024-10-14 03:27] VITALS: BP 126/78; PULSE 84; RESP 16; TEMP 36.9; O2SAT 94
[2024-10-14 07:04] LABS: Anion Gap 22 (12-20); Blood Urea Nitrogen 59 mg/dL (9-16); Calcium 8.2 mg/dL (8.4-10.2); Carbon Dioxide 23 mmol/L (22-29); Chloride 97 mmol/L (96-108); Creatinine Clr Calc Pharmacy 5.7; Estimated Glomerular Filt Rate 4; Glucose Random 75 mg/dL (60-115); Potassium 5.6 mmol/L (3.3-5.1); Sodium 136 mmol/L (135-145)
[2024-10-14 07:08] VITALS: BP 133/80; PULSE 85; RESP 18; TEMP 36.8; O2SAT 94
--- NOTE | 2024-10-14 08:31 | P.PNIM_ITS ---
Subjective Subjective Date of Service: 10/14/24 Interval History: hyperkalemia anemia Review of Systems denies new c/o denies any bleeding or melena Review of Systems: Yes all other systems are reviewed and are negative Physical Exam 2 Vital Signs: Vital Signs: Last Vital Signs Temp 98.3 F 10/14/24 07:08 Pulse 85 10/14/24 07:08 Resp 18 10/14/24 07:08 BP 133/80 10/14/24 07:08 Pulse Ox 94 10/14/24 07:08 O2 Del Method Room Air 10/14/24 07:08 BMI result Body Mass Index 20.3 General: AOx3, no acute distress Resp: air entry dimished ,no rales or wheezing CVS: [id number]. GI: +BS, NT, no distention Skin: Warm, dry Neuro: nonfocal Extremities: No LE edema Objective Data Active Medications Acetaminophen (Acetaminophen 325 Mg Tablet) 650 mg PO Q6H PRN PRN Reason: Pain, Mild 1-3,fever,headache Calcium Carbonate (Calcium Carbonate 750 Mg Tab.Chew) 750 mg PO Q4H PRN PRN Reason: Heartburn Carvedilol (Carvedilol 12.5 Mg Tablet) 12.5 mg PO BID [facility]; Protocol Last Admin: 10/13/24 20:08 Dose: 12.5 mg Documented By: BELLE Heparin Sodium (Porcine) (Heparin Sodium,Porcine 5,000 Unit/Ml Vial) 5,000 unit SUBCUT Q12H [facility] Last Admin: 10/13/24 23:42 Dose: 5,000 unit Documented By: BELLE Levetiracetam (Levetiracetam 500 Mg Tablet) 500 mg PO BID [facility] Last Admin: 10/13/24 20:08 Dose: 500 mg Documented By: BELLE Magnesium Hydroxide (Milk Of Magnesia 30 Ml Oral.Susp) 30 ml PO DAILY PRN PRN Reason: Constipation Melatonin (Melatonin 3 Mg Tablet) 6 mg PO BEDTIME PRN PRN Reason: Insomnia Nifedipine (Nifedipine Er 60 Mg Tab.Er.24) 60 mg PO BID [facility]; Protocol Last Admin: 10/13/24 20:09 Dose: 60 mg Documented By: BELLE Ondansetron HCl (Ondansetron Hcl 4 Mg/2 Ml Vial) 4 mg IVPUSH Q8H PRN PRN Reason: Nausea and Vomiting Last Admin: 10/13/24 19:03 Dose: 4 mg Documented By: RAJINDER Sevelamer Carbonate (Sevelamer Carbonate Tablet 800 Mg Tablet) 800 mg PO TIDWM [facility] Last Admin: 10/13/24 20:08 Dose: 800 mg Documented By: BELLE Sodium Chloride (0.9 % Sodium Chloride Flush 3 Ml Syringe) 3 ml IVFLUSH QSHIFT [facility] Last Admin: 10/13/24 22:23 Dose: Not Given Documented By: BELLE Non-Admin Reason: Previously Administered Sodium Zirconium Cyclosilicate (Sodium Zirconium Cyclosilicate 10 Gm Powd.Pack) 10 gm PO SUTUTHSA [facility] Last Admin: 10/13/24 20:09 Dose: 10 gm Documented By: BELLE Sodium Zirconium Cyclosilicate (Sodium Zirconium Cyclosilicate 5 Gm Powd.Pack) 5 gm PO ONCE ONE Stop: 10/14/24 08:30 Labs 10/14/24 09:43 10/14/24 06:05 Labs: Laboratory Results - last 24 hr 10/13/24 10/13/24 10/13/24 15:56 15:56 15:56 MCV 91.4 MCH 29.4 MCHC 32.1 RDW 15.4 Plt Count 326 MPV 9.0 L Absolute Nucleated RBC 0.000 Nucleated RBC % (auto) 0.0 Anion Gap 17 16 Estim Creat Clear Calc 6.2 6.2 Estimated GFR 5 Random Glucose Calcium 10/13/24 10/13/24 10/13/24 15:56 15:56 15:56 MCV MCH MCHC RDW Plt Count MPV Absolute Nucleated RBC Nucleated RBC % (auto) Anion Gap Estim Creat Clear Calc Estimated GFR 5 Random Glucose 105 106 Calcium 8.5 8.5 10/14/24 06:05 MCV MCH MCHC RDW Plt Count MPV Absolute Nucleated RBC Nucleated RBC % (auto) Anion Gap 22 H Estim Creat Clear Calc 5.7 Estimated GFR 4 Random Glucose 75 Calcium 8.2 L Assessment and Plan (1) Hyperkalemia: Status: Acute (2) Elevated troponin: Status: Acute Assessment and Plan: 49-year-old female with a past medical history significant for end-stage renal disease on hemodialysis Thursday, chronic hyperkalemia, substance use disorder on methadone, pseudoseizures, who presented to the ED due to a witnessed seizure lasting about 5 minutes. ?pseudoseizure: no new episode last admission started on keppra for new onset seizure dis. Uncontrolled hypertension: continue coreg/nifedipine. ARETHA- on methadone. ESRD on hd MWF/hyperkalemia: Patient is followed by Nephrology acute on chronic hyperkalemia Hyperkalemia: Patient received Lokelma, calcium and insulin last night: Hyperkalemia seems to be improving. moniter bmp closely elevated troponin, thought to be secondary to ESRD. VTE prophy: heparin ongoing need for hospitlisation:psuedoseizure likely due to vomiting and HTN, complicated by hyperkalemia Quality Stroke Does the patient have a stroke diagnosis?: No VTE Prior VTE?: No VTE Risk Level:: Medical - moderate - high VTE Device Contraindication: Treatment Not Indicated VTE Drug Contraindication: N/A - Med Ordered
[2024-10-14] MEDS: NIFEdipine ER 60 MG TAB.ER.24 PO ×2 (09:22→20:09)
[2024-10-14] MEDS: levETIRAcetam 500 MG TABLET PO ×2 (09:22→20:09)
[2024-10-14] MEDS: Sevelamer Carbonate Tablet 800 MG TABLET PO ×2 (09:22→15:47)
[2024-10-14] MEDS: carvediloL 12.5 MG TABLET PO ×2 (09:22→20:09)
[2024-10-14 09:50] LABS: Hemoglobin 7.1 g/dl (12.0-16.0)
[2024-10-14] MEDS: Loperamide HCl 2 MG CAPSULE 4 MG PO (09:52)
[2024-10-14] MEDS: Sodium Zirconium Cyclosilicate 5 GM POWD.PACK PO (09:55)
--- NOTE | 2024-10-14 11:03 | MHC.CM.PN ---
EMR REVIEWED, PT W/ELECTROLYTE IMBALANCE D/T NONCOMPLIANCE W/HD, PSEUDOSEIZURE, PT LEFT AMA EARLIER IN MONTH, PER HOSPITALIST NO PLAN FOR DC AT THIS TIME, CM WILL CONT TO FOLLOW DC NEEDS.
[2024-10-14] MEDS: Heparin Sodium,Porcine 5,000 UNIT/ML VIAL 5000 UNIT SUBCUT ×2 (11:56→23:45)
[2024-10-14] MEDS: methADONE HCl 20 MG/2 ML ORAL.CONC 30 MG PO (11:56)
[2024-10-14 15:40] VITALS: BP 132/85; PULSE 80; RESP 18; TEMP 37.3; O2SAT 96
[2024-10-14] MEDS: ondansetron HCL 4 MG/2 ML VIAL IVPUSH ×2 (15:50→23:43)
--- NOTE | 2024-10-14 16:28 | HO.WOUND ---
Wound Consult: Initial 49yr old?female admitted to [facility] on 10/13/24- See progress notes and H&P for detailed history.? Wound consult placed for Coccyx wound POA.? Patient agreeable to assessment and photo documentation.? Coccyx Etiology: Resurfaced Stage 2 Pressure Injury ??Present on Admission Measurements: 0.6cm x 0.6cm Wound Bed: resurfaced clean pink wound bed Drainage / Odor: none noted Edges: ? attached Penny wound: intact ? No Induration, Fluctuance or Warmth noted Pain: denies pain Goals of Treatment: ? Off load andprotect with foam dressing Recommendations: 1. Turn and Reposition every 2 hours and as needed for patient comfort.? Use pillows or wedges to support off loading positions. 2. Off Load all bony prominences with use of pillows and heel boots if needed.? Apply Preventative foams where needed. ? 3. Monitor for incontinence and moisture control, use barrier creams when needed for prevention and treatment. 4. Provide adequate and supplemental nutrition.? 5. Continue low air loss mattress. 6. When applicable maintain blood glucose levels per Providers order. 7. Coccyx - Off Load Pressure with Q2 hr turns and use of pillows - Cleanse with PH balance spray or wipes, pat dry. ?Apply skin prep allow to dry, Cover with foam dressing to aid in off loading and protection from friction. Change every 5 days and PRN. Re-consult wound care Nurse for wound deterioration or wound changes.
[2024-10-14 16:48] LABS: Anion Gap 17 (12-20); Blood Urea Nitrogen 38 mg/dL (9-16); Carbon Dioxide 28 mmol/L (22-29); Chloride 98 mmol/L (96-108); Creatinine Clr Calc Pharmacy 7.9; Estimated Glomerular Filt Rate 6; Glucose Random 130 mg/dL (60-115); Potassium 4.8 mmol/L (3.3-5.1); Sodium 138 mmol/L (135-145)
[2024-10-14 19:18] VITALS: BP 168/100; PULSE 69; RESP 18; TEMP 36.7; O2SAT 96
[2024-10-14] MEDS: 0.9 % Sodium Chloride Flush 3 ML SYRINGE IVFLUSH ×2 (20:11→23:48)
[2024-10-14 23:10] VITALS: BP 147/85; PULSE 75; RESP 15; TEMP 37; O2SAT 96
[2024-10-15] VITALS (8 sets, daily range): BP systolic 123–167; BP diastolic 78–94; PULSE 81–85; RESP 14–18; TEMP 36.3–37.4; O2SAT 93–97
--- NOTE | 2024-10-15 | ECG_ITS ---
Test Reason : hyperkalemia /chest pain Blood Pressure : */* mmHG Vent. Rate : 75 BPM Atrial Rate : 75 BPM P-R Int : 106 ms QRS Dur : 72 ms QT Int : 420 ms P-R-T Axes : 50 -16 14 degrees QTcB Int : 469 ms Sinus rhythm with short NE Cannot rule out Anterior infarct , age undetermined Abnormal ECG When compared with ECG of 12-Oct-2024 21:45, Questionable change in QRS axis Non-specific change in ST segment in Inferior leads Referred By: Eladio Lainez Electronically Signed By: MO DELEON MD
[2024-10-15 06:51] LABS: CDiff Gene PCR POSITIVE (Negative)
[2024-10-15 06:53] LABS: CDIFF Internal ctrl Dots and bkg OK (V); CDiff Toxin Negative (Negative)
[2024-10-15] MEDS: ondansetron HCL 4 MG/2 ML VIAL IVPUSH ×3 (07:21→22:58)
[2024-10-15 07:56] LABS: Anion Gap 18 (12-20); Blood Urea Nitrogen 53 mg/dL (9-16); Calcium 7.8 mg/dL (8.4-10.2); Carbon Dioxide 24 mmol/L (22-29); Chloride 98 mmol/L (96-108); Creatinine Clr Calc Pharmacy 7.1; Estimated Glomerular Filt Rate 6; Glucose Random 91 mg/dL (60-115); Potassium 5.6 mmol/L (3.3-5.1); Sodium 134 mmol/L (135-145)
[2024-10-15 08:03] LABS: Hematocrit 24.2 % (37.0-47.0); Hemoglobin 7.7 g/dl (12.0-16.0)
[2024-10-15] MEDS: NIFEdipine ER 60 MG TAB.ER.24 PO ×2 (08:13→20:53)
[2024-10-15] MEDS: methADONE HCl 20 MG/2 ML ORAL.CONC 30 MG PO (08:13)
[2024-10-15] MEDS: Sodium Zirconium Cyclosilicate 5 GM POWD.PACK PO (08:22)
[2024-10-15] MEDS: levETIRAcetam 500 MG TABLET PO ×2 (08:22→20:52)
[2024-10-15] MEDS: 0.9 % Sodium Chloride Flush 3 ML SYRINGE IVFLUSH ×3 (08:22→23:04)
[2024-10-15] MEDS: vancomycin HCL 125 MG CAPSULE PO ×3 (08:23→20:53)
[2024-10-15] MEDS: carvediloL 12.5 MG TABLET PO ×2 (08:23→20:54)
[2024-10-15] MEDS: Sevelamer Carbonate Tablet 800 MG TABLET PO ×3 (08:23→16:22)
--- NOTE | 2024-10-15 10:00 | PC.NURSE ---
pt reporting L sided CP, pain does not radiate and hurt more with release of palpation. Dr. bruce notifed. ekg obtained
[2024-10-15] MEDS: Heparin Sodium,Porcine 5,000 UNIT/ML VIAL 5000 UNIT SUBCUT (12:38)
[2024-10-15 13:17] LABS: Adenovirus F 40/41 Not Detected (Not Detect.); Astrovirus Not Detected (Not Detect.); Campylobacter Not Detected (Not Detect.); Cryptosporidium Not Detected (Not Detect.); Cyclospora cayetanensis Not Detected (Not Detect.); E. coli EAEC Not Detected (Not Detect.); E. coli EPEC Not Detected (Not Detect.); E. coli ETEC Not Detected (Not Detect.); E. coli STEC Not Detected (Not Detect.); Entamoeba histolytica Not Detected (Not Detect.); Giardia lamblia Not Detected (Not Detect.); Plesiomonas shigelloides Not Detected (Not Detect.); Rotavirus A Not Detected (Not Detect.); Salmonella Not Detected (Not Detect.); Sapovirus Not Detected (Not Detect.); Shigella sp./EIEC Not Detected (Not Detect.); Vibrio Not Detected (Not Detect.); Vibrio Cholerae Not Detected (Not Detect.); Yersinia enterocolitica Not Detected (Not Detect.)
[2024-10-15 13:52] LABS: Norovirus GI/GII Detected (Not Detect.)
--- NOTE | 2024-10-15 14:23 | HO.PM.IMPN ---
Subjective Subjective Date of Service: 10/15/24 Interval History: hyperkalemia ,anemia right sided chest discomfort -musculocutaneous ,resolved spontaneously Review of Systems no new c/o. Physical Exam Vital Signs: Vital Signs: Last Vital Signs Temp 98.5 F 10/15/24 12:00 Pulse 82 10/15/24 12:00 Resp 18 10/15/24 12:00 BP 167/94 H 10/15/24 12:00 Pulse Ox 97 10/15/24 12:00 O2 Del Method Room Air 10/15/24 12:00 BMI result Body Mass Index 20.3 General: AOx3, no acute distress Resp: air entry dimished ,no rales or wheezing CVS: [id number]. GI: +BS, NT, no distention Skin: Warm, dry Neuro: nonfocal Extremities: No LE edema Objective Data Active Medications Acetaminophen (Acetaminophen 325 Mg Tablet) 650 mg PO Q6H PRN PRN Reason: Pain, Mild 1-3,fever,headache Calcium Carbonate (Calcium Carbonate 750 Mg Tab.Chew) 750 mg PO Q4H PRN PRN Reason: Heartburn Carvedilol (Carvedilol 12.5 Mg Tablet) 12.5 mg PO BID [facility]; Protocol Last Admin: 10/15/24 08:23 Dose: 12.5 mg Documented By: RAVI Heparin Sodium (Porcine) (Heparin Sodium,Porcine 5,000 Unit/Ml Vial) 5,000 unit SUBCUT Q12H [facility] Last Admin: 10/15/24 12:38 Dose: 5,000 unit Documented By: RAVI Levetiracetam (Levetiracetam 500 Mg Tablet) 500 mg PO BID [facility] Last Admin: 10/15/24 08:22 Dose: 500 mg Documented By: RAVI Magnesium Hydroxide (Milk Of Magnesia 30 Ml Oral.Susp) 30 ml PO DAILY PRN PRN Reason: Constipation Melatonin (Melatonin 3 Mg Tablet) 6 mg PO BEDTIME PRN PRN Reason: Insomnia Methadone HCl (Methadone Hcl 20 Mg/2 Ml Oral.Conc) 30 mg PO DAILY [facility] Last Admin: 10/15/24 08:13 Dose: 30 mg Documented By: RAVI Co-signed By: LILO Nifedipine (Nifedipine Er 60 Mg Tab.Er.24) 60 mg PO BID [facility]; Protocol Last Admin: 10/15/24 08:13 Dose: 60 mg Documented By: RAVI Ondansetron HCl (Ondansetron Hcl 4 Mg/2 Ml Vial) 4 mg IVPUSH Q8H PRN PRN Reason: Nausea and Vomiting Last Admin: 10/15/24 07:21 Dose: 4 mg Documented By: TOREY Sevelamer Carbonate (Sevelamer Carbonate Tablet 800 Mg Tablet) 800 mg PO TIDWM [facility] Last Admin: 10/15/24 12:38 Dose: 800 mg Documented By: RAVI Sodium Chloride (0.9 % Sodium Chloride Flush 3 Ml Syringe) 3 ml IVFLUSH QSHIFT [facility] Last Admin: 10/15/24 08:22 Dose: 3 ml Documented By: RAVI Sodium Zirconium Cyclosilicate (Sodium Zirconium Cyclosilicate 10 Gm Powd.Pack) 10 gm PO SUTUTHSA [facility] Last Admin: 10/13/24 20:09 Dose: 10 gm Documented By: BELLE Vancomycin HCl (Vancomycin Hcl 125 Mg Capsule) 125 mg PO Q6H [facility] Last Admin: 10/15/24 08:23 Dose: 125 mg Documented By: RAVI Labs 10/15/24 06:50 10/15/24 06:50 Labs: Laboratory Results - last 24 hr 10/14/24 10/14/24 10/15/24 15:57 22:45 06:50 Anion Gap 17 18 Estim Creat Clear Calc 7.9 7.1 Estimated GFR 6 6 Random Glucose 130 H 91 Calcium 8.0 L 7.8 L Stl C. cayetanensis PCR Not Detected Stool Rotavirus A PCR Not Detected Stl Adenov F 40/41 PCR Not Detected Stool Astrovirus (PCR) Not Detected Stool Campylobacter PCR Not Detected Stool Cryptosporidium PCR Not Detected Stl Sh Tox Pr E STEC PCR Not Detected Stool E coli O157 PCR Not applicable Stl Enterotoxigenic E PCR Not Detected Stool EPEC (PCR) Not Detected Stool EAEC (PCR) Not Detected Stl E. histolytica PCR Not Detected Stool Giardia Lamblia PCR Not Detected Stl P. shigelloides PCR Not Detected Stool Salmonella PCR Not Detected Stool Sapovirus (PCR) Not Detected Stl Shigella/EIEC PCR Not Detected St Y.enterocolitica PCR Not Detected Stool Vibrio (PCR) Not Detected Stl Vibrio cholerae PCR Not Detected Stl Norovirus GI/GII PCR Detected A C. difficile Tox B Gene POSITIVE A* C. difficile Toxin A&B Negative C. difficile Interpret SEE NOTE Assessment and Plan (1) Hyperkalemia: Status: Acute Assessment and Plan: 49-year-old female with a past medical history significant for end-stage renal disease on hemodialysis Thursday, chronic hyperkalemia, substance use disorder on methadone, pseudoseizures, who presented to the ED due to a witnessed seizure lasting about 5 minutes. ?pseudoseizure: no new episode last admission started on keppra for new onset seizure dis. right sided chest discomfort -musculocutaneous ,resolved spontaneously: ekg seems similar to previous. Uncontrolled hypertension: continue coreg/nifedipine. ARETHA- on methadone. ESRD on hd MWF/hyperkalemia: Patient is followed by Nephrology acute on chronic hyperkalemia Hyperkalemia: Patient received Lokelma, calcium and insulin last night: Hyperkalemia seems to be improving. moniter bmp closely elevated troponin, thought to be secondary to ESRD. VTE prophy: heparin ongoing need for hospitlisation:psuedoseizure likely due to vomiting and HTN, complicated by hyperkalemia Quality Stroke Does the patient have a stroke diagnosis?: No VTE Prior VTE?: No VTE Risk Level:: Medical - moderate - high VTE Device Contraindication: Treatment Not Indicated VTE Drug Contraindication: N/A - Med Ordered
[2024-10-15] MEDS: Sodium Zirconium Cyclosilicate 10 GM POWD.PACK PO (16:22)
[2024-10-16] VITALS: BP 166/94; PULSE 75; RESP 18; TEMP 36.7; O2SAT 96
[2024-10-16] MEDS: Melatonin 3 MG TABLET 6 MG PO (00:48)
[2024-10-16] MEDS: vancomycin HCL 125 MG CAPSULE PO ×4 (00:48→21:08)
[2024-10-16] MEDS: Heparin Sodium,Porcine 5,000 UNIT/ML VIAL 5000 UNIT SUBCUT ×2 (00:48→12:30)
[2024-10-16 03:35] VITALS: BP 147/80; PULSE 82; RESP 18; TEMP 37; O2SAT 94
[2024-10-16] MEDS: ondansetron HCL 4 MG/2 ML VIAL IVPUSH (06:18)
[2024-10-16 08:00] VITALS: BP 153/80; PULSE 86; RESP 18; TEMP 37.6; O2SAT 96
--- NOTE | 2024-10-16 09:02 | PC.NURSE ---
Addendum entered by Kwasi Mendez RN 10/16/24 12:43: disregard previous amend stating pt's temp. informed md of pt's BP Addendum entered by Kwasi Mendez RN 10/16/24 12:43: informed md of pt's temp Addendum entered by Kwasi Mendez RN 10/16/24 09:39: pt c/o nausea stating prn zofran had - effect. md informed Original Note: this RN assumed care of pt around 0900
[2024-10-16] MEDS: carvediloL 12.5 MG TABLET PO ×2 (09:58→21:07)
[2024-10-16] MEDS: NIFEdipine ER 60 MG TAB.ER.24 PO ×2 (09:58→21:08)
[2024-10-16] MEDS: hydrOXYzine HCL 25 MG TABLET PO ×2 (09:58→21:07)
[2024-10-16] MEDS: methADONE HCl 20 MG/2 ML ORAL.CONC 30 MG PO (09:59)
[2024-10-16] MEDS: levETIRAcetam 500 MG TABLET PO ×2 (09:59→21:07)
[2024-10-16] MEDS: traZODone HCL 25 MG HALFTAB PO (10:44)
[2024-10-16 11:13] VITALS: BP 167/68; PULSE 82; RESP 18; TEMP 37.3; O2SAT 96
--- NOTE | 2024-10-16 11:43 | PM.PNNEP ---
Subjective Subjective Date of Service: 10/16/24 Interval history: Seen and examined, events noted c/o sleeping probs and GI upset Physical Exam Vital Signs: Vital Signs: Last Vital Signs Temp 99.2 F 10/16/24 11:13 Pulse 82 10/16/24 11:13 Resp 18 10/16/24 11:13 BP 167/68 H 10/16/24 11:13 Pulse Ox 96 10/16/24 11:13 O2 Del Method Room Air 10/16/24 11:13 BMI result Body Mass Index 20.3 Const: General: alert and awake HEENT: Head: Yes normocephalic and Yes atraumatic Neck: Neck: Yes supple Resp: Auscultation: clear to auscultation bilaterally Cardio: Heart sounds: S1 normal heart sound present and S2 normal heart sound present GI: Palpation (GI): Soft to palpation and nontender Extrem: General: Yes normal to inspection Objective Data Labs 10/15/24 06:50 10/15/24 06:50 Labs: Laboratory Results - last 24 hr 10/14/24 22:45 Stl C. cayetanensis PCR Not Detected Stool Rotavirus A PCR Not Detected Stl Adenov F 40/41 PCR Not Detected Stool Astrovirus (PCR) Not Detected Stool Campylobacter PCR Not Detected Stool Cryptosporidium PCR Not Detected Stl Sh Tox Pr E STEC PCR Not Detected Stool E coli O157 PCR Not applicable Stl Enterotoxigenic E PCR Not Detected Stool EPEC (PCR) Not Detected Stool EAEC (PCR) Not Detected Stl E. histolytica PCR Not Detected Stool Giardia Lamblia PCR Not Detected Stl P. shigelloides PCR Not Detected Stool Salmonella PCR Not Detected Stool Sapovirus (PCR) Not Detected Stl Shigella/EIEC PCR Not Detected St Y.enterocolitica PCR Not Detected Stool Vibrio (PCR) Not Detected Stl Vibrio cholerae PCR Not Detected Stl Norovirus GI/GII PCR Detected A Procedures Date of Service Date of Service: 10/16/24 Assessment & Plan Assessment and plan (1) ESRD (end stage renal disease): Status: Acute (2) Hyperkalemia: Status: Acute (3) Anemia: Status: Acute Plan [facility] followed by Dr Dooley presented with seizure nephrogenic anemia REC HD per schedule sodium zirconium as needed renal diet P binders LEONEL w/u of qeus Sz Time Spent With Patient Time: Total time managing care of this patient today ____ minutes. Progress Note: Quality Stroke Does the patient have a stroke diagnosis?: No
[2024-10-16] MEDS: Sevelamer Carbonate Tablet 800 MG TABLET PO ×2 (12:29→17:18)
--- NOTE | 2024-10-16 14:51 | HO.PM.IMPN ---
Subjective Subjective Date of Service: 10/16/24 Interval History: hyperkalemia ,anemia Review of Systems some abd discomfort still has diarrhae nofevers Physical Exam Vital Signs: Vital Signs: Last Vital Signs Temp 99.2 F 10/16/24 11:13 Pulse 82 10/16/24 11:13 Resp 18 10/16/24 11:13 BP 167/68 H 10/16/24 11:13 Pulse Ox 96 10/16/24 11:13 O2 Del Method Room Air 10/16/24 11:13 BMI result Body Mass Index 20.3 General: AOx3, no acute distress Resp: air entry dimished ,no rales or wheezing CVS: [id number]. GI: +BS, mild abd discomfort, no distention Skin: Warm, dry Neuro: nonfocal Extremities: No LE edema Objective Data Active Medications Acetaminophen (Acetaminophen 325 Mg Tablet) 650 mg PO Q6H PRN PRN Reason: Pain, Mild 1-3,fever,headache Calcium Carbonate (Calcium Carbonate 750 Mg Tab.Chew) 750 mg PO Q4H PRN PRN Reason: Heartburn Carvedilol (Carvedilol 12.5 Mg Tablet) 12.5 mg PO BID [facility]; Protocol Last Admin: 10/16/24 09:58 Dose: 12.5 mg Documented By: ZOLTAN Heparin Sodium (Porcine) (Heparin Sodium,Porcine 5,000 Unit/Ml Vial) 5,000 unit SUBCUT Q12H [facility] Last Admin: 10/16/24 12:30 Dose: 5,000 unit Documented By: ZOLTAN Hydroxyzine HCl (Hydroxyzine Hcl 25 Mg Tablet) 25 mg PO Q8H PRN PRN Reason: Anxiety Last Admin: 10/16/24 09:58 Dose: 25 mg Documented By: ZOLTAN Levetiracetam (Levetiracetam 500 Mg Tablet) 500 mg PO BID [facility] Last Admin: 10/16/24 09:59 Dose: 500 mg Documented By: ZOLTAN Magnesium Hydroxide (Milk Of Magnesia 30 Ml Oral.Susp) 30 ml PO DAILY PRN PRN Reason: Constipation Melatonin (Melatonin 3 Mg Tablet) 6 mg PO BEDTIME PRN PRN Reason: Insomnia Last Admin: 10/16/24 00:48 Dose: 6 mg Documented By: DOUGLAS Methadone HCl (Methadone Hcl 20 Mg/2 Ml Oral.Conc) 30 mg PO DAILY [facility] Last Admin: 10/16/24 09:59 Dose: 30 mg Documented By: ZOLTAN Co-signed By: LILO Nifedipine (Nifedipine Er 60 Mg Tab.Er.24) 60 mg PO BID [facility]; Protocol Last Admin: 10/16/24 09:58 Dose: 60 mg Documented By: ZOLTAN Ondansetron HCl (Ondansetron Hcl 4 Mg/2 Ml Vial) 4 mg IVPUSH Q6H PRN PRN Reason: Nausea and Vomiting Sevelamer Carbonate (Sevelamer Carbonate Tablet 800 Mg Tablet) 800 mg PO TIDWM [facility] Last Admin: 10/16/24 12:29 Dose: 800 mg Documented By: ZOLTAN Sodium Chloride (0.9 % Sodium Chloride Flush 3 Ml Syringe) 3 ml IVFLUSH QSHIFT [facility] Last Admin: 10/16/24 08:53 Dose: Not Given Documented By: ZOLTAN Non-Admin Reason: Previously Administered Sodium Zirconium Cyclosilicate (Sodium Zirconium Cyclosilicate 10 Gm Powd.Pack) 10 gm PO SUTUTHSA [facility] Last Admin: 10/15/24 16:22 Dose: 10 gm Documented By: RICCIAV Vancomycin HCl (Vancomycin Hcl 125 Mg Capsule) 125 mg PO Q6H [facility] Last Admin: 10/16/24 13:38 Dose: 125 mg Documented By: ZOLTAN Labs 10/15/24 06:50 10/15/24 06:50 Assessment and Plan (1) Hyperkalemia: Status: Acute Assessment and Plan: 49-year-old female with a past medical history significant for end-stage renal disease on hemodialysis Thursday, chronic hyperkalemia, substance use disorder on methadone, pseudoseizures, who presented to the ED due to a witnessed seizure lasting about 5 minutes. diarrahae: positive c diff toxin b gene also positive for norovirus added po vanco id eval ?pseudoseizure: no new episode last admission started on keppra for new onset seizure dis. right sided chest discomfort -musculocutaneous ,resolved spontaneously: ekg seems similar to previous. Uncontrolled hypertension: continue coreg/nifedipine. ARETHA- on methadone. ESRD on hd MWF/hyperkalemia: Patient is followed by Nephrology acute on chronic hyperkalemia Hyperkalemia: Patient received Lokelma, calcium and insulin last night: Hyperkalemia seems to be improving.willie hawkins , moniter bmp moniter bmp closely elevated troponin, thought to be secondary to ESRD. VTE prophy: heparin ongoing need for hospitlisation:psuedoseizure likely due to vomiting and HTN, complicated by hyperkalemia Quality Stroke Does the patient have a stroke diagnosis?: No VTE Prior VTE?: No VTE Risk Level:: Medical - moderate - high VTE Device Contraindication: Treatment Not Indicated VTE Drug Contraindication: N/A - Med Ordered
[2024-10-16 15:25] VITALS: BP 163/79; PULSE 90; RESP 18; TEMP 38.2; O2SAT 96
[2024-10-16] MEDS: Sodium Zirconium Cyclosilicate 10 GM POWD.PACK PO (17:18)
[2024-10-16 19:33] VITALS: BP 155/92; PULSE 87; RESP 18; TEMP 36.7; O2SAT 92
[2024-10-16] MEDS: 0.9 % Sodium Chloride Flush 3 ML SYRINGE IVFLUSH (21:08)
--- NOTE | 2024-10-16 23:12 | W.PM.IDCN ---
History of Present Illness Data of Consult Service Date: 10/16/24 Requesting physician: Eladio Lainez Primary Care Provider: Unknown Physician HPI Reason for consult: diarrhea She reports watery stools last four to five days. She has no fever or chills. There is positive norovirus as well as Cdiff. She reports no prior Cdiff. Review of Systems Review of Systems: Yes all other systems are reviewed and are negative PMFSH Past Medical History Medical History (Updated 10/16/24 @ 23:16 by Isabella Schreiber MD) Diarrhea HTN (hypertension) Drug abuse ESRD (end stage renal disease) Family History Family history: reviewed and not pertinent Social History Social History Housing: House Do you presently have visiting nurse or other home services: No Alcohol intake: unknown Patient Tobacco Use Status: Tobacco use Unknown Advance Directives Date on File: 09/25/24 service: No Meds Allergies Allergy/AdvReac Type Severity Reaction Status Date / Time No Known Allergies Allergy Verified 10/12/24 21:46 Active Medications: Current Medications Acetaminophen (Acetaminophen 325 Mg Tablet) 650 mg PO Q6H PRN PRN Reason: Pain, Mild 1-3,fever,headache Calcium Carbonate (Calcium Carbonate 750 Mg Tab.Chew) 750 mg PO Q4H PRN PRN Reason: Heartburn Carvedilol (Carvedilol 12.5 Mg Tablet) 12.5 mg PO BID [facility]; Protocol Last Admin: 10/16/24 21:07 Dose: 12.5 mg Heparin Sodium (Porcine) (Heparin Sodium,Porcine 5,000 Unit/Ml Vial) 5,000 unit SUBCUT Q12H [facility] Last Admin: 10/16/24 12:30 Dose: 5,000 unit Hydroxyzine HCl (Hydroxyzine Hcl 25 Mg Tablet) 25 mg PO Q8H PRN PRN Reason: Anxiety Last Admin: 10/16/24 21:07 Dose: 25 mg Levetiracetam (Levetiracetam 500 Mg Tablet) 500 mg PO BID [facility] Last Admin: 10/16/24 21:07 Dose: 500 mg Magnesium Hydroxide (Milk Of Magnesia 30 Ml Oral.Susp) 30 ml PO DAILY PRN PRN Reason: Constipation Melatonin (Melatonin 3 Mg Tablet) 6 mg PO BEDTIME PRN PRN Reason: Insomnia Last Admin: 10/16/24 00:48 Dose: 6 mg Methadone HCl (Methadone Hcl 20 Mg/2 Ml Oral.Conc) 30 mg PO DAILY [facility] Last Admin: 10/16/24 09:59 Dose: 30 mg Nifedipine (Nifedipine Er 60 Mg Tab.Er.24) 60 mg PO BID [facility]; Protocol Last Admin: 10/16/24 21:08 Dose: 60 mg Ondansetron HCl (Ondansetron Hcl 4 Mg/2 Ml Vial) 4 mg IVPUSH Q6H PRN PRN Reason: Nausea and Vomiting Sevelamer Carbonate (Sevelamer Carbonate Tablet 800 Mg Tablet) 800 mg PO TIDWM [facility] Last Admin: 10/16/24 17:18 Dose: 800 mg Sodium Chloride (0.9 % Sodium Chloride Flush 3 Ml Syringe) [facility] Last Admin: 10/16/24 21:08 Dose: 3 ml Sodium Zirconium Cyclosilicate (Sodium Zirconium Cyclosilicate 10 Gm Powd.Pack) 10 gm PO [facility] Last Admin: 10/16/24 17:18 Dose: 10 gm Vancomycin HCl (Vancomycin Hcl 125 Mg Capsule) 125 mg PO Q6H [facility] Last Admin: 10/16/24 21:08 Dose: 125 mg Home Medications ?Medication ?Instructions ?Recorded ?Confirmed ?Last Taken ?Type methadone 10 mg/mL oral concentrate 30 mg PO DAILY 09/24/24 10/13/24 10/12/24 History sevelamer carbonate 800 mg tablet 800 mg PO TIDWM 09/24/24 10/13/24 10/11/24 History sodium zirconium cyclosilicate 10 10 g PO [facility] 09/24/24 10/13/24 10/11/24 History gram oral powder packet (Lokelma) nifedipine 60 mg tablet,extended 60 mg PO BID 10/13/24 10/13/24 Unknown History release 24 hr Physical Exam Vital Signs: Vital Signs: Last Vital Signs Temp 98.1 F 10/16/24 19:33 Pulse 87 10/16/24 19:33 Resp 18 10/16/24 19:33 BP 155/92 H 10/16/24 19:33 Pulse Ox 92 10/16/24 19:33 O2 Del Method Room Air 10/16/24 19:33 BMI result Body Mass Index 20.3 Const: General: cooperative HEENT: Head: Yes normal to inspection Face and sinus: Yes normal facial exam Mouth: Normal oral and palatal mucosa present Teeth and gingiva: dentition normal Eyes: General: appearance normal, both eyes and all related structures Pupils: Equal, round and reactive pupils present Resp: Effort & Inspection: normal respiratory effort Cardio: Rate: regular rate Rhythm: regular rhythm GI: Palpation (GI): Soft to palpation and nontender : General: Yes no CVA tenderness Back/Spine/Pelvis: Back: no CVA tenderness Skin: General skin exam: no rashes or lesions noted Neuro: General: moves all extremities Cranial nerves: Yes Equal, round and reactive pupils present Extrem: General: Yes normal to inspection Psych: Appearance: grossly normal Results Labs 10/15/24 06:50 10/15/24 06:50 Assessment and Plan (1) Diarrhea: Status: Acute Plan Probably mostly norovirus but would treat Cdiff with po Vancomycin 125 qid for 10 days. Bleach to contact areas.
[2024-10-17] VITALS: BP 164/95; PULSE 83; RESP 17; TEMP 37.2; O2SAT 94
[2024-10-17] MEDS: vancomycin HCL 125 MG CAPSULE PO ×4 (02:25→20:58)
[2024-10-17] MEDS: Heparin Sodium,Porcine 5,000 UNIT/ML VIAL 5000 UNIT SUBCUT ×2 (02:25→13:33)
[2024-10-17 04:00] VITALS: BP 143/82; PULSE 86; RESP 17; TEMP 36.6; O2SAT 92
[2024-10-17 07:45] VITALS: BP 145/84; PULSE 88; RESP 20; TEMP 37.2; O2SAT 94
--- NOTE | 2024-10-17 08:25 | PC.NURSE ---
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
[2024-10-17] MEDS: methADONE HCl 20 MG/2 ML ORAL.CONC 30 MG PO (08:59)
[2024-10-17] MEDS: levETIRAcetam 500 MG TABLET PO ×2 (09:00→20:58)
[2024-10-17] MEDS: NIFEdipine ER 60 MG TAB.ER.24 PO ×2 (09:00→20:58)
[2024-10-17] MEDS: Sevelamer Carbonate Tablet 800 MG TABLET PO ×3 (09:00→16:44)
[2024-10-17] MEDS: carvediloL 12.5 MG TABLET PO ×2 (09:00→20:58)
[2024-10-17] MEDS: 0.9 % Sodium Chloride Flush 3 ML SYRINGE IVFLUSH ×2 (09:03→20:58)
[2024-10-17] MEDS: ondansetron HCL 4 MG/2 ML VIAL IVPUSH ×3 (09:09→20:58)
--- NOTE | 2024-10-17 10:31 | MHC.RECOVRN ---
Spoke with Claudette at [facility]. Pts methadone dose was decreased on 09/30 due to prolonged qtc. Tran Guerrero APRN, aware.
[2024-10-17 11:39] VITALS: BP 174/100; PULSE 82; RESP 20; TEMP 37.2; O2SAT 91
--- NOTE | 2024-10-17 12:43 | P.PNIM_ITS ---
Subjective Subjective Date of Service: 10/17/24 Interval History: has diarrhae Review of Systems feels weak has some nausea has diarrhae Review of Systems: Yes all other systems are reviewed and are negative Physical Exam 2 Vital Signs: Vital Signs: Last Vital Signs Temp 98.9 F 10/17/24 11:39 Pulse 82 10/17/24 11:39 Resp 20 10/17/24 11:39 BP 174/100 H 10/17/24 11:39 Pulse Ox 91 L 10/17/24 11:39 O2 Del Method Room Air 10/17/24 11:39 BMI result Body Mass Index 20.3 General: AOx3, no acute distress Resp: air entry dimished ,no rales or wheezing CVS: [id number]. GI: +BS, mild abd discomfort, no distention Skin: Warm, dry Neuro: nonfocal Extremities: No LE edema Objective Data Active Medications Acetaminophen (Acetaminophen 325 Mg Tablet) 650 mg PO Q6H PRN PRN Reason: Pain, Mild 1-3,fever,headache Calcium Carbonate (Calcium Carbonate 750 Mg Tab.Chew) 750 mg PO Q4H PRN PRN Reason: Heartburn Carvedilol (Carvedilol 12.5 Mg Tablet) 12.5 mg PO BID [facility]; Protocol Last Admin: 10/17/24 09:00 Dose: 12.5 mg Documented By: ROGELIO Heparin Sodium (Porcine) (Heparin Sodium,Porcine 5,000 Unit/Ml Vial) 5,000 unit SUBCUT Q12H [facility] Last Admin: 10/17/24 02:25 Dose: 5,000 unit Documented By: CHASITY Hydroxyzine HCl (Hydroxyzine Hcl 25 Mg Tablet) 25 mg PO Q8H PRN PRN Reason: Anxiety Last Admin: 10/16/24 21:07 Dose: 25 mg Documented By: CHASITY Levetiracetam (Levetiracetam 500 Mg Tablet) 500 mg PO BID [facility] Last Admin: 10/17/24 09:00 Dose: 500 mg Documented By: ROGELIO Magnesium Hydroxide (Milk Of Magnesia 30 Ml Oral.Susp) 30 ml PO DAILY PRN PRN Reason: Constipation Melatonin (Melatonin 3 Mg Tablet) 6 mg PO BEDTIME PRN PRN Reason: Insomnia Last Admin: 10/16/24 00:48 Dose: 6 mg Documented By: DOUGLAS Methadone HCl (Methadone Hcl 20 Mg/2 Ml Oral.Conc) 30 mg PO DAILY [facility] Last Admin: 10/17/24 08:59 Dose: 30 mg Documented By: ROGELIO Co-signed By: LILO Comments: [id number] Nifedipine (Nifedipine Er 60 Mg Tab.Er.24) 60 mg PO BID [facility]; Protocol Last Admin: 10/17/24 09:00 Dose: 60 mg Documented By: ROGELIO Ondansetron HCl (Ondansetron Hcl 4 Mg/2 Ml Vial) 4 mg IVPUSH Q6H PRN PRN Reason: Nausea and Vomiting Last Admin: 10/17/24 09:09 Dose: 4 mg Documented By: ROGELIO Sevelamer Carbonate (Sevelamer Carbonate Tablet 800 Mg Tablet) 800 mg PO TIDWM [facility] Last Admin: 10/17/24 09:00 Dose: 800 mg Documented By: ROGELIO Sodium Chloride (0.9 % Sodium Chloride Flush 3 Ml Syringe) 3 ml IVFLUSH QSHIFT [facility] Last Admin: 10/17/24 09:03 Dose: 3 ml Documented By: ROGELIO Sodium Zirconium Cyclosilicate (Sodium Zirconium Cyclosilicate 10 Gm Powd.Pack) 10 gm PO SUTUTHSA [facility] Last Admin: 10/16/24 17:18 Dose: 10 gm Documented By: ZOLTAN Vancomycin HCl (Vancomycin Hcl 125 Mg Capsule) 125 mg PO Q6H [facility] Last Admin: 10/17/24 09:00 Dose: 125 mg Documented By: ROGELIO Labs 10/15/24 06:50 10/15/24 06:50 Assessment and Plan (1) Hyperkalemia: Status: Acute Assessment and Plan: 49-year-old female with a past medical history significant for end-stage renal disease on hemodialysis Thursday, chronic hyperkalemia, substance use disorder on methadone, pseudoseizures, who presented to the ED due to a witnessed seizure lasting about 5 minutes. diarrahae: positive c diff toxin b gene also positive for norovirus added po vanco id eval ?pseudoseizure: no new episode last admission started on keppra for new onset seizure dis. right sided chest discomfort -musculocutaneous ,resolved spontaneously: ekg seems similar to previous. Uncontrolled hypertension: continue coreg/nifedipine. ARETHA- on methadone. anemia chronic: h/h slightly trending down denies any blood instool moniter cbc , if h/h continue to tredn down -consider further workup nephrology following ESRD on hd MWF/hyperkalemia: Patient is followed by Nephrology acute on chronic hyperkalemia Hyperkalemia: Patient received Lokelma, calcium and insulin last night: Hyperkalemia seems to be improving.willie hawkins , moniter bmp moniter bmp closely elevated troponin, thought to be secondary to ESRD. VTE prophy: heparin ongoing need for hospitlisation:psuedoseizure likely due to vomiting and HTN, complicated by hyperkalemia Quality Stroke Does the patient have a stroke diagnosis?: No VTE Prior VTE?: No VTE Risk Level:: Medical - moderate - high VTE Device Contraindication: Treatment Not Indicated VTE Drug Contraindication: N/A - Med Ordered
[2024-10-17] MEDS: methADONE HCl 20 MG/2 ML ORAL.CONC 5 MG PO (13:23)
--- NOTE | 2024-10-17 14:04 | MHC.CM.PN ---
EMR REVIEWED, PT W/CDIF AND NOROVIRUS, NOW ON IV VANCO DAY 3, NO PLAN FOR DC AT THIS TIME, ANTIC PT WILL DC HOME W/RESUMP OF [facility] FOR METHADONE DELIVERY, CM WILL CONT TO FOLLOW DC NEEDS.
--- NOTE | 2024-10-17 14:55 | HO.ADDICT_ITS ---
History of Present Illness Date of Service: 10/17/2024 Chief Complaint: abnormal electrolytes Reason for Consult: methadone dose titration Sources of Information: patient interviewed and chart reviewed HPI Narrative: Patient is a 49 year old female with ESRD on HD, medically admitted after witnessed seizure and reports of vomiting Consult requested as patient currently engaged in treatment for OUD, and requesting increase in methadone dose. Chart review shows patient was admitted to [facility] earlier this month, where EKG showed prolonged QTC, wide QRS and electrolyte abnormalities while patient was in ICU. At that time attending provider decreased methadone from 50mg to 30mg--patient currently still on 30mg methadone Patient seen in room 469. She is laying in bed, awake, alert, watching a show on her tablet. Discussed methadone dose change during last admission and provided clarity around why that change was made--EKG changes and electrolytes. She reports that since discharge on 09/30/24 she has not seen OTP provider, which is why she has remained on 30mg--she has [facility] which comes and administers medications, per her report. She denies any substance use, however does endorse cravings or thoughts of using. Denies any withdrawal sx, but felt more comfortable at previous dose of 50mg. Currently patient continues to have loose stools and has been found to have cdiff and norovirus. She feels generally weak and with occasional muscle aches. EKG and labs reviewed --K 5.6 Review of Systems Constitutional: Reports as per HPI Diagnostics Vital Signs (24Hr): Vital Signs - 24 hr 10/16/24 15:25 10/16/24 19:33 10/17/24 00:00 Temperature 100.7 F H 98.1 F 98.9 F Pulse Rate 90 87 83 Respiratory Rate 18 18 17 Blood Pressure 163/79 H 155/92 H 164/95 H Pulse Oximetry 96 92 94 Oxygen Delivery Method Room Air Room Air Room Air 10/17/24 04:00 10/17/24 07:45 10/17/24 11:39 Temperature 97.8 F 98.9 F 98.9 F Pulse Rate 86 88 82 Respiratory Rate 17 20 20 Blood Pressure 143/82 H 145/84 H 174/100 H Pulse Oximetry 92 94 91 L Oxygen Delivery Method Room Air Room Air Room Air BMI result Body Mass Index 20.3 Labs 10/15/24 06:50 10/15/24 06:50 Mental Status Exam Mental Status Exam Patient Appearance: Appropriate Level of Consciousness: Awake, Appropriate and Alert Patient Behavior: Appropriate and Talkative Affect Description: Calm Speech Pattern: Clear Hallucinations: None Thought Content: positive for Intact Judgement: Good Medications Medications Current Medications Acetaminophen (Acetaminophen 325 Mg Tablet) 650 mg PO Q6H PRN PRN Reason: Pain, Mild 1-3,fever,headache Calcium Carbonate (Calcium Carbonate 750 Mg Tab.Chew) 750 mg PO Q4H PRN PRN Reason: Heartburn Carvedilol (Carvedilol 12.5 Mg Tablet) 12.5 mg PO BID [facility]; Protocol Last Admin: 10/17/24 09:00 Dose: 12.5 mg Heparin Sodium (Porcine) (Heparin Sodium,Porcine 5,000 Unit/Ml Vial) 5,000 unit SUBCUT Q12H [facility] Last Admin: 10/17/24 13:33 Dose: 5,000 unit Hydroxyzine HCl (Hydroxyzine Hcl 25 Mg Tablet) 25 mg PO Q8H PRN PRN Reason: Anxiety Last Admin: 10/16/24 21:07 Dose: 25 mg Levetiracetam (Levetiracetam 500 Mg Tablet) 500 mg PO BID [facility] Last Admin: 10/17/24 09:00 Dose: 500 mg Magnesium Hydroxide (Milk Of Magnesia 30 Ml Oral.Susp) 30 ml PO DAILY PRN PRN Reason: Constipation Melatonin (Melatonin 3 Mg Tablet) 6 mg PO BEDTIME PRN PRN Reason: Insomnia Last Admin: 10/16/24 00:48 Dose: 6 mg Methadone HCl (Methadone Hcl 20 Mg/2 Ml Oral.Conc) 30 mg PO DAILY [facility] Last Admin: 10/17/24 08:59 Dose: 30 mg Nifedipine (Nifedipine Er 60 Mg Tab.Er.24) 60 mg PO BID [facility]; Protocol Last Admin: 10/17/24 09:00 Dose: 60 mg Ondansetron HCl (Ondansetron Hcl 4 Mg/2 Ml Vial) 4 mg IVPUSH Q6H PRN PRN Reason: Nausea and Vomiting Last Admin: 10/17/24 09:09 Dose: 4 mg Sevelamer Carbonate (Sevelamer Carbonate Tablet 800 Mg Tablet) 800 mg PO TIDWM [facility] Last Admin: 10/17/24 13:23 Dose: 800 mg Sodium Chloride (0.9 % Sodium Chloride Flush 3 Ml Syringe) 3 ml IVFLUSH QSHIFT [facility] Last Admin: 10/17/24 09:03 Dose: 3 ml Sodium Zirconium Cyclosilicate (Sodium Zirconium Cyclosilicate 10 Gm Powd.Pack) 10 gm PO SUTUTHSA [facility] Last Admin: 10/16/24 17:18 Dose: 10 gm Vancomycin HCl (Vancomycin Hcl 125 Mg Capsule) 125 mg PO Q6H [facility] Last Admin: 10/17/24 13:23 Dose: 125 mg Allergies Allergies Allergy/AdvReac Type Severity Reaction Status Date / Time No Known Allergies Allergy Verified 10/12/24 21:46 Assessment & Plan Assessment & Plan (1) Opioid use disorder: Status: Acute Code(s): F11.90 - Opioid use, unspecified, uncomplicated Assessment and Plan: * increase methadone 5mg--to methadone 35mg daily * recheck EKG * discussed transitioning to buprenorphine due to ongoing electrolyte instability and challenges with methadone dose titration--at this time, patient declines however will revisit if needed * will follow up in AM Total time managing care of this patient today __30__ minutes. [facility] Past Medical History Medical History (Updated 10/17/24 @ 16:01 by Tran Guerrero CNP) Diarrhea HTN (hypertension) Drug abuse ESRD (end stage renal disease) Family History Family history: reviewed and not pertinent Social History Social History Housing: House Do you presently have visiting nurse or other home services: No Alcohol intake: unknown Comment: pt refusing bed alarm Patient Tobacco Use Status: Tobacco use Unknown Advance Directives Date on File: 09/25/24 service: No
[2024-10-17 16:15] VITALS: BP 164/78; PULSE 88; RESP 16; TEMP 37.3; O2SAT 94
[2024-10-17 20:30] VITALS: BP 176/86; PULSE 80; RESP 16; TEMP 36.3; O2SAT 100
[2024-10-18] VITALS (9 sets, daily range): BP systolic 136–198; BP diastolic 74–106; PULSE 71–92; RESP 16–20; TEMP 36.5–37.6; O2SAT 95–99
--- NOTE | 2024-10-18 | ECG_ITS ---
Test Reason : methadone dose titration Blood Pressure : */* mmHG Vent. Rate : 89 BPM Atrial Rate : 89 BPM P-R Int : 110 ms QRS Dur : 72 ms QT Int : 360 ms P-R-T Axes : 33 -20 14 degrees QTcB Int : 438 ms Sinus rhythm with short MO Otherwise normal ECG When compared with ECG of 15-Oct-2024 10:16, No significant change was found Referred By: Tran Guerrero Electronically Signed By: MO DELEON MD
[2024-10-18] MEDS: Metoclopramide HCl 10 MG/2 ML VIAL IVPUSH (01:31)
[2024-10-18] MEDS: Heparin Sodium,Porcine 5,000 UNIT/ML VIAL 5000 UNIT SUBCUT ×2 (01:31→14:02)
[2024-10-18] MEDS: vancomycin HCL 125 MG CAPSULE PO ×4 (03:40→21:14)
[2024-10-18] MEDS: ondansetron HCL 4 MG/2 ML VIAL IVPUSH ×2 (07:59→17:50)
[2024-10-18] MEDS: 0.9 % Sodium Chloride Flush 3 ML SYRINGE IVFLUSH ×2 (08:00→17:48)
[2024-10-18] MEDS: methADONE HCl 20 MG/2 ML ORAL.CONC 35 MG PO (08:12)
[2024-10-18] MEDS: Sevelamer Carbonate Tablet 800 MG TABLET PO ×3 (09:28→18:07)
[2024-10-18] MEDS: NIFEdipine ER 60 MG TAB.ER.24 PO ×2 (09:28→21:14)
[2024-10-18] MEDS: carvediloL 12.5 MG TABLET PO ×2 (09:28→21:14)
[2024-10-18] MEDS: levETIRAcetam 500 MG TABLET PO ×2 (09:28→21:14)
--- NOTE | 2024-10-18 10:34 | PC.NURSE ---
this RN spoke with Tran Guerrero from addiction medicine in regards Methadone dose for today , EKG done this am for effects of methadone for heart rhythm
--- NOTE | 2024-10-18 10:55 | P.PNIM_ITS ---
Subjective Subjective Date of Service: 10/18/24 Interval History: Seen and examined this morning Interval history: Reports diarrhea is improving- about 3 episodes daily. Bilateral lower abd pain. Still with nausea and vomiting. Tolerating small amounts of PO. Feels like she is withdrawing for opiates. Methadone reduced from 50 to 30. Addiction med following. Refusing lab draws from vein but agreeable to finger sticks. Refusing BP LUE due to pain and swelling, RUE not used Review of Systems Review of Systems: Yes all other systems are reviewed and are negative Physical Exam 2 Vital Signs: Vital Signs: Last Vital Signs Temp 97.7 F 10/18/24 08:00 Pulse 86 10/18/24 08:00 Resp 20 10/18/24 08:00 BP 185/100 H 10/18/24 08:00 Pulse Ox 96 10/18/24 08:00 O2 Del Method Room Air 10/18/24 08:00 BMI result Body Mass Index 20.3 Constitutional - Awake and Alert, No apparent distress Eyes - PERRLA, EOMI Cardiovascular - S1S2, RRR, No edema Respiratory - Normal lung expansion, Normal respiratory effort, No respiratory distress, CTA bilaterally Gastrointestinal - NT / ND; +BS; No rebound or guarding Extremities - no calf tenderness bilaterally. Firm, painful swelling L upper arm. No erythema or warmth. No areas of fluctuance. Full ROM Skin - Warm/Dry Neurological - Alert & oriented x3 Psychological - Appropriate affect Objective Data Active Medications Acetaminophen (Acetaminophen 325 Mg Tablet) 650 mg PO Q6H PRN PRN Reason: Pain, Mild 1-3,fever,headache Calcium Carbonate (Calcium Carbonate 750 Mg Tab.Chew) 750 mg PO Q4H PRN PRN Reason: Heartburn Carvedilol (Carvedilol 12.5 Mg Tablet) 12.5 mg PO BID [facility]; Protocol Last Admin: 10/18/24 09:28 Dose: 12.5 mg Documented By: AMBER Heparin Sodium (Porcine) (Heparin Sodium,Porcine 5,000 Unit/Ml Vial) 5,000 unit SUBCUT Q12H [facility] Last Admin: 10/18/24 01:31 Dose: 5,000 unit Documented By: BELLE Hydroxyzine HCl (Hydroxyzine Hcl 25 Mg Tablet) 25 mg PO Q8H PRN PRN Reason: Anxiety Last Admin: 10/16/24 21:07 Dose: 25 mg Documented By: CHASITY Levetiracetam (Levetiracetam 500 Mg Tablet) 500 mg PO BID [facility] Last Admin: 10/18/24 09:28 Dose: 500 mg Documented By: AMBER Magnesium Hydroxide (Milk Of Magnesia 30 Ml Oral.Susp) 30 ml PO DAILY PRN PRN Reason: Constipation Melatonin (Melatonin 3 Mg Tablet) 6 mg PO BEDTIME PRN PRN Reason: Insomnia Last Admin: 10/16/24 00:48 Dose: 6 mg Documented By: DOUGLAS Methadone HCl (Methadone Hcl 20 Mg/2 Ml Oral.Conc) 35 mg PO DAILY [facility] Last Admin: 10/18/24 08:12 Dose: 35 mg Documented By: AMBER Co-signed By: RIA Nifedipine (Nifedipine Er 60 Mg Tab.Er.24) 60 mg PO BID [facility]; Protocol Last Admin: 10/18/24 09:28 Dose: 60 mg Documented By: AMBER Ondansetron HCl (Ondansetron Hcl 4 Mg/2 Ml Vial) 4 mg IVPUSH Q6H PRN PRN Reason: Nausea and Vomiting Last Admin: 10/18/24 07:59 Dose: 4 mg Documented By: AMBER Sevelamer Carbonate (Sevelamer Carbonate Tablet 800 Mg Tablet) 800 mg PO TIDWM [facility] Last Admin: 10/18/24 09:28 Dose: 800 mg Documented By: AMBER Sodium Chloride (0.9 % Sodium Chloride Flush 3 Ml Syringe) [facility] Last Admin: 10/18/24 08:00 Dose: 3 ml Documented By: AMBER Sodium Zirconium Cyclosilicate (Sodium Zirconium Cyclosilicate 10 Gm Powd.Pack) 10 gm PO SUTUTHSA [facility] Last Admin: 10/16/24 17:18 Dose: 10 gm Documented By: ZOLTAN Vancomycin HCl (Vancomycin Hcl 125 Mg Capsule) 125 mg PO Q6H [facility] Last Admin: 10/18/24 09:28 Dose: 125 mg Documented By: AMBER Labs 10/15/24 06:50 10/15/24 06:50 Assessment and Plan (1) Hyperkalemia: Status: Acute Assessment and Plan: 49-year-old female with a past medical history significant for end-stage renal disease on hemodialysis Thursday, chronic hyperkalemia, substance use disorder on methadone, pseudoseizures, who presented to the ED due to a witnessed seizure lasting about 5 minutes. Acute diarrhea positive c diff toxin b gene positive for norovirus PO vanco QID x10 days (Initiated 10/15) ?pseudoseizure: no new episode last admission started on keppra for new onset seizure dis. Continue EEG outpt right sided chest discomfort -musculocutaneous ,resolved spontaneously: ekg seems similar to previous. Uncontrolled hypertension: continue coreg/nifedipine. Add hydralazine 10mg x1 Add clonidine x1. Monitor COWS LUE swelling Venous duplex ordered Warm compresses acute on chronic hyperkalemia Hyperkalemia: Patient received Lokelma, calcium and insulin 10/12 Improving continue Kayexalate moniter bmp closely given ongoing diarrhea ARETHA on methadone reduced- increasing to 35mg today (was on 50mg) ?withdrawal per patient Add COWS Anemia of chronic disease h/h slightly trending down denies any blood instool moniter cbc , if h/h continue to tredn down -consider further workup nephrology following ESRD on hd MWF/hyperkalemia Patient is followed by Nephrology elevated troponin, thought to be secondary to ESRD. VTE prophy: heparin ongoing need for hospitalization:psuedoseizure likely due to vomiting and HTN, complicated by hyperkalemia (2) Clostridioides difficile diarrhea: Status: Acute (3) Norovirus: Status: Acute Quality Stroke Does the patient have a stroke diagnosis?: No VTE Prior VTE?: No VTE Risk Level:: Medical - moderate - high VTE Device Contraindication: Treatment Not Indicated VTE Drug Contraindication: N/A - Med Ordered
--- NOTE | 2024-10-18 11:25 | PC.NURSE ---
Addendum entered by Jasmina Reynolds RN 10/18/24 12:12: aware about pt's request re: additional Methadone given when pt gets her lunch Original Note: pt requesting to take the additional dose of Methadone with her lunch
--- NOTE | 2024-10-18 11:34 | MHC.RECOVRN ---
Met with pt in to follow up and provide support.? Pt awake, alert, easily engages in conversation. Pt reports feeling better, on increase in methadone but continues to experience cravings and W/D sx. especially at night. T/W reviewed with pt her EKG results and electrolyte imbalance and how this effects the heart. Reviewed the contraindications of taking methadone with heart issues. Pt reflected and identified that electrolytes are off due to non-compliance with dialysis. Report given to GIOVANNY Gaspar Pt's EKG reviewed by GIOVANNY Gaspar and she will address pt's methadone dose. Pt reports that when she was on a higher methadone dose she was able to maintain abstenance. Pt does not like other MOUD's as she has tried and feels they do not treat her as well as the methadone does re: cravings/use. Pt reflected on how meetings were helpful for her and t/w supplied pt with a list of local meetings. Pt denies other concerns at this time.? T/w available as needed
--- NOTE | 2024-10-18 12:31 | PC.NURSE ---
BP 198/97 , no chest pain , no headache ,no dizziness provider Katalina notified
[2024-10-18] MEDS: methADONE HCl 20 MG/2 ML ORAL.CONC 5 MG PO (12:56)
[2024-10-18] MEDS: hydrALAZINE HCl 20 MG/ML VIAL 10 MG IVPUSH (14:03)
--- NOTE | 2024-10-18 15:01 | PC.NURSE ---
left upper arm nonpitting edema , pain to touch , pt stated that started 2 days ago , no redness, nursing not able to get BP on left arm d/t pain . MD aware , US ordered , warm compress ordered and applied
[2024-10-18] MEDS: cloNIDine HCL 0.1 MG TABLET PO (15:08)
[2024-10-18 15:21] LABS: Hematocrit 23.1 % (37.0-47.0); Hemoglobin 7.5 g/dl (12.0-16.0); Mean Corpuscular HGB Conc 32.5 g/dl (31.0-35.0); Mean Corpuscular Volume 95.5 fL (80.0-98.0); Mean Platelet Volume 11.4 fL (9.4-12.3); PLT CLUMP 1; Red Blood Count 2.42 X10*6/uL (4.20-5.50); Red Cell Distribution Width 17.2 % (11.0-16.0)
[2024-10-18 15:27] LABS: White Blood Count 10.2 X10*3/uL (4.8-10.8)
[2024-10-18 16:30] LABS: Anion Gap 21 (12-20); Blood Urea Nitrogen 54 mg/dL (9-16); Calcium 8.3 mg/dL (8.4-10.2); Carbon Dioxide 23 mmol/L (22-29); Chloride 101 mmol/L (96-108); Creatinine Clr Calc Pharmacy 7.8; Estimated Glomerular Filt Rate 6; Glucose Random 98 mg/dL (60-115); Potassium 6.4 mmol/L (3.3-5.1); Sodium 139 mmol/L (135-145)
[2024-10-18] MEDS: Dextrose 50 % 25 GM/50 ML SYRINGE IVPUSH ×2 (17:40→22:36)
[2024-10-18] MEDS: Insulin Regular, Human 100 UNIT/ML 10 ML VIAL IVPUSH ×2 (17:40→22:37)
[2024-10-18] MEDS: Sodium Zirconium Cyclosilicate 10 GM POWD.PACK PO (18:08)
[2024-10-18] MEDS: Calcium Gluconate/NaCl,Iso-Osm 2 GM/100 ML PLAST..BAG IV ×2 (18:15→22:37)
--- NOTE | 2024-10-18 18:38 | PC.NURSE ---
potassium serum 6.4 this afternoon , critical results reported to Mathew, provider , new order: Regular Insulin 5 units IV , Dextrose IV , Calcium gluconate IV, repeat blood work at 21:00
[2024-10-18 21:08] LABS: Anion Gap 20 (12-20); Carbon Dioxide 24 mmol/L (22-29); Chloride 102 mmol/L (96-108); Potassium 6.7 mmol/L (3.3-5.1); Sodium 139 mmol/L (135-145)
--- NOTE | 2024-10-18 21:13 | PM.EVENT ---
Event Note Date of Service: 10/18/24 Event Note: Nurse reported high potassium. Will give temporizing measures, calcium gluconate and Lokelma. Closely monitor serum potassium Time Spent With Patient Time: Total time managing care of this patient today ____ minutes.
[2024-10-18] MEDS: Albuterol/Iprat 2.5/0.5MG 3 ML AMPUL.NEB INHALE (21:19)
[2024-10-18] MEDS: Sodium Zirconium Cyclosilicate 5 GM POWD.PACK 15 GM PO (22:36)
[2024-10-19] VITALS (9 sets, daily range): BP systolic 121–208; BP diastolic 59–98; PULSE 74–92; RESP 16–19; TEMP 36.3–37.3; O2SAT 95–98
[2024-10-19] MEDS: Heparin Sodium,Porcine 5,000 UNIT/ML VIAL 5000 UNIT SUBCUT ×2 (01:17→13:30)
[2024-10-19] MEDS: vancomycin HCL 125 MG CAPSULE PO ×4 (01:17→20:26)
--- NOTE | 2024-10-19 08:12 | P.PNIM_ITS ---
Subjective Subjective Date of Service: 10/19/24 Interval History: Seen and examined this morning Interval history: Patient resting comfortably in bed. Reports near resolution of diarrhea. No ongoing nausea or vomiting. Tolerating diet. Methadone increased to 40 mg this morning. Severe hyperkalemia last night requiring aggressive intervention. Improved to 4.0 this morning. Underwent HD this morning and was able to sit for nearly the entire session. Remains quite hypertensive despite medication adjustments and dialysis. No headache or chest pain. No vision changes Review of Systems Review of Systems: Yes all other systems are reviewed and are negative Physical Exam 2 Vital Signs: Vital Signs: Last Vital Signs Temp 98.0 F 10/19/24 07:29 Pulse 74 10/19/24 07:29 Resp 16 10/19/24 07:29 BP 197/82 H 10/19/24 07:29 Pulse Ox 98 10/19/24 07:29 O2 Del Method Room Air 10/19/24 07:29 BMI result Body Mass Index 20.3 Constitutional - Awake and Alert, No apparent distress Eyes - PERRLA, EOMI Cardiovascular - S1S2, RRR, No edema Respiratory - Normal lung expansion, Normal respiratory effort, No respiratory distress, CTA bilaterally Gastrointestinal - NT / ND; +BS; No rebound or guarding Extremities - no calf tenderness bilaterally, no swelling Skin - Warm/Dry Neurological - Alert & oriented x3, moving all extremities Psychological - Appropriate affect Objective Data Active Medications Acetaminophen (Acetaminophen 325 Mg Tablet) 650 mg PO Q6H PRN PRN Reason: Pain, Mild 1-3,fever,headache Calcium Carbonate (Calcium Carbonate 750 Mg Tab.Chew) 750 mg PO Q4H PRN PRN Reason: Heartburn Carvedilol (Carvedilol 12.5 Mg Tablet) 12.5 mg PO BID [facility]; Protocol Last Admin: 10/18/24 21:14 Dose: 12.5 mg Documented By: BELLE Heparin Sodium (Porcine) (Heparin Sodium,Porcine 5,000 Unit/Ml Vial) 5,000 unit SUBCUT Q12H [facility] Last Admin: 10/19/24 01:17 Dose: 5,000 unit Documented By: BELLE Hydralazine HCl (Hydralazine Hcl 25 Mg Tablet) 25 mg PO TID [facility]; Protocol Hydroxyzine HCl (Hydroxyzine Hcl 25 Mg Tablet) 25 mg PO Q8H PRN PRN Reason: Anxiety Last Admin: 10/16/24 21:07 Dose: 25 mg Documented By: CHASITY Levetiracetam (Levetiracetam 500 Mg Tablet) 500 mg PO BID [facility] Last Admin: 10/18/24 21:14 Dose: 500 mg Documented By: BELLE Magnesium Hydroxide (Milk Of Magnesia 30 Ml Oral.Susp) 30 ml PO DAILY PRN PRN Reason: Constipation Melatonin (Melatonin 3 Mg Tablet) 6 mg PO BEDTIME PRN PRN Reason: Insomnia Last Admin: 10/16/24 00:48 Dose: 6 mg Documented By: DOUGLAS Methadone HCl (Methadone Hcl 20 Mg/2 Ml Oral.Conc) 40 mg PO DAILY [facility] Nifedipine (Nifedipine Er 60 Mg Tab.Er.24) 60 mg PO BID [facility]; Protocol Last Admin: 10/18/24 21:14 Dose: 60 mg Documented By: BELLE Ondansetron HCl (Ondansetron Hcl 4 Mg/2 Ml Vial) 4 mg IVPUSH Q6H PRN PRN Reason: Nausea and Vomiting Last Admin: 10/18/24 17:50 Dose: 4 mg Documented By: AMBER Sevelamer Carbonate (Sevelamer Carbonate Tablet 800 Mg Tablet) 800 mg PO TIDWM [facility] Last Admin: 10/18/24 18:07 Dose: 800 mg Documented By: AMBER Sodium Chloride (0.9 % Sodium Chloride Flush 3 Ml Syringe) 3 ml IVFLUSH QSHIFT [facility] Last Admin: 10/18/24 22:44 Dose: Not Given Documented By: BELLE Non-Admin Reason: IV Running Sodium Zirconium Cyclosilicate (Sodium Zirconium Cyclosilicate 10 Gm Powd.Pack) 10 gm PO SUTUTHSA [facility] Last Admin: 10/18/24 18:08 Dose: 10 gm Documented By: AMBER Vancomycin HCl (Vancomycin Hcl 125 Mg Capsule) 125 mg PO Q6H [facility] Stop: 10/25/24 02:16 Last Admin: 10/19/24 01:17 Dose: 125 mg Documented By: BELLE Labs 10/18/24 15:10 10/19/24 07:32 Labs: Laboratory Results - last 24 hr 10/18/24 10/18/24 10/19/24 15:10 20:35 05:52 MCV 95.5 MCH 31.0 MCHC 32.5 RDW 17.2 H Plt Count TNP MPV 11.4 Absolute Nucleated RBC 0.000 Nucleated RBC % (auto) 0.0 Hold Purple Top SEE NOTE Anion Gap 21 H 20 Estim Creat Clear Calc 7.8 Estimated GFR 6 Random Glucose 98 Calcium 8.3 L D Assessment and Plan (1) Hyperkalemia: Status: Acute Assessment and Plan: 49-year-old female with a past medical history significant for end-stage renal disease on hemodialysis Thursday, chronic hyperkalemia, substance use disorder on methadone, pseudoseizures, who presented to the ED due to a witnessed seizure lasting about 5 minutes. Acute diarrhea- improving positive c diff toxin b gene positive for norovirus PO vanco QID x10 days (Initiated 10/15) ?pseudoseizure: no new episode last admission started on keppra for new onset seizure dis. Continue EEG outpt right sided chest discomfort -musculocutaneous ,resolved spontaneously: ekg seems similar to previous. Hypertensive urgency Given 1X dose hydralazine x1 and clonidine 0.1 mg 10/19. Add hydralazine 25 mg t.i.d. Discussed with Nephrology. Increase Coreg to 25 mg b.i.d. and can increase hydralazine as needed. Avoid further clonidine Continue dialysis as scheduled Monitor cows LUE swelling Venous duplex negative Warm compresses acute on chronic hyperkalemia Hyperkalemia: Patient received Lokelma, calcium and insulin 10/12, 10/19 x2 Improved to 4 this am continue Kayexalate Discussed the importance of completing and being overall compliant with HD management of K Follow lytes closely ARETHA on methadone reduced- increasing to 40mg today (was on 50mg) Anemia of chronic disease h/h slightly trending down denies any blood instool moniter cbc , if h/h continue to tredn down -consider further workup nephrology following ESRD on hd MWF/hyperkalemia Patient is followed by Nephrology elevated troponin, thought to be secondary to ESRD. VTE prophy: heparin ongoing need for hospitalization:psuedoseizure likely due to vomiting and HTN, complicated by hyperkalemia (2) Clostridioides difficile diarrhea: Status: Acute (3) Norovirus: Status: Acute Quality Stroke Does the patient have a stroke diagnosis?: No VTE Prior VTE?: No VTE Risk Level:: Medical - moderate - high VTE Device Contraindication: Treatment Not Indicated VTE Drug Contraindication: N/A - Med Ordered
[2024-10-19] MEDS: ondansetron HCL 4 MG/2 ML VIAL IVPUSH ×2 (09:10→20:37)
[2024-10-19 09:11] LABS: Anion Gap 13 (12-20); Blood Urea Nitrogen 35 mg/dL (9-16); Calcium 8.8 mg/dL (8.4-10.2); Carbon Dioxide 28 mmol/L (22-29); Chloride 102 mmol/L (96-108); Creatinine Clr Calc Pharmacy 12.8; Estimated Glomerular Filt Rate 11; Glucose Random 95 mg/dL (60-115); Sodium 139 mmol/L (135-145)
[2024-10-19] MEDS: 0.9 % Sodium Chloride Flush 3 ML SYRINGE IVFLUSH ×3 (09:14→20:27)
[2024-10-19] MEDS: methADONE HCl 20 MG/2 ML ORAL.CONC 40 MG PO (09:53)
[2024-10-19] MEDS: Sevelamer Carbonate Tablet 800 MG TABLET PO (10:48)
[2024-10-19] MEDS: carvediloL 12.5 MG TABLET PO (10:49)
[2024-10-19] MEDS: NIFEdipine ER 60 MG TAB.ER.24 PO ×2 (10:49→20:26)
[2024-10-19] MEDS: hydrALAZINE HCl 25 MG TABLET PO ×3 (10:49→20:26)
[2024-10-19] MEDS: levETIRAcetam 500 MG TABLET PO ×2 (10:49→20:27)
--- NOTE | 2024-10-19 11:19 | MHC.CM.PN ---
EMR REVIEWED, PT W/CDIF/NOROVIRUS, NONCOMPLIANCE W/OUTPT HD, PLAN FOR DAILYSIS TODAY AND CONT IV VANCO, NO PLAN FOR DC, CM WILL CONT TO FOLLOW DC NEEDS.
--- NOTE | 2024-10-19 12:04 | PC.NURSE ---
Addendum entered by Jasmina Reynolds RN 10/19/24 12:10: provider Katalina updated on BP readings , am BP meds given after dialysis at 10:49 am , pt requested to take meds after she finished her meal tray Original Note: BP 202/98 on right leg , pt is refusing BP on both arms d/t pain and swelling
[2024-10-19] MEDS: cloNIDine HCL 0.1 MG TABLET PO (13:30)
--- NOTE | 2024-10-19 15:25 | P.CDIM_ITS ---
PROVIDER RESPONSE TEXT: To clarify, the appropriate diagnosis supported by the clinical indicators: Well controlled: without status epilepticus QUERY TEXT: PHYSICIAN'S DOCUMENTATION REQUEST Date of Query: 10/19/2024 08:45 AM EDT Patient Name: Simran Bolanos Admit Date: 10/13/2024 Dear Katalina CHARLES, A review of the medical record indicates additional documentation may be needed. Please review below and update the documentation accordingly. A diagnosis of seizure(s) was documented on 10/18/24. Clinical Indicators: PMH: Pseudo seizures presented to ED due to a 5 minute witnessed seizure last admission started on Keppra for new onset seizure disorder, but patient reported she does not ta ke any anti seizure medications per H&P If possible, please further clarify the control status and acuity of seizure(s): Well controlled please further specify acuity as With or Without status epilepticus Intractable please further specify acuity as With or Without status epilepticus Pharmacoresistant please further specify acuity as With or Without status epilepticus Poorly controlled please further specify acuity as With or Without status epilepticus Refractory please further specify acuity as With or Without status epilepticus Treatment resistant please further specify acuity as With or Without status epilepticus Other (explain) Clinically unable to determine (explain) Thank you, Mary Garcia RN Use of terms such as suspected, likely, concern for, or probable (associated with a specific diagnosi s that is being evaluated, monitored, or treated as if it exists) are acceptable and can be coded in the inpatient se tting, when documented at the time of discharge. Please use your independent medical judgment in providing your response. THIS QUERY IS PART OF THE PERMANENT MEDICAL RECORD
[2024-10-19] MEDS: carvediloL 25 MG TABLET PO (20:27)
[2024-10-19] MEDS: Melatonin 3 MG TABLET 6 MG PO (20:37)
[2024-10-19] MEDS: hydrOXYzine HCL 25 MG TABLET PO (20:37)
[2024-10-20] MEDS: Heparin Sodium,Porcine 5,000 UNIT/ML VIAL 5000 UNIT SUBCUT (01:30)
[2024-10-20] MEDS: vancomycin HCL 125 MG CAPSULE PO ×2 (02:54→09:17)
[2024-10-20 03:18] VITALS: BP 134/73; PULSE 85; RESP 19; TEMP 37; O2SAT 94
[2024-10-20 07:12] VITALS: BP 117/64; PULSE 96; RESP 16; TEMP 37.1; O2SAT 97
[2024-10-20] MEDS: Sevelamer Carbonate Tablet 800 MG TABLET PO (09:17)
[2024-10-20] MEDS: methADONE HCl 20 MG/2 ML ORAL.CONC 40 MG PO (09:17)
[2024-10-20] MEDS: NIFEdipine ER 60 MG TAB.ER.24 PO (09:17)
[2024-10-20] MEDS: levETIRAcetam 500 MG TABLET PO (09:17)
[2024-10-20] MEDS: hydrALAZINE HCl 25 MG TABLET PO (09:17)
[2024-10-20] MEDS: carvediloL 25 MG TABLET PO (09:17)
--- NOTE | 2024-10-20 10:21 | PM.PNNEP ---
Subjective Subjective Date of Service: 10/19/24 Interval history: Mackenzie nd examined,e vents noted seen on hd Physical Exam Vital Signs: Vital Signs: Last Vital Signs Temp 98.8 F 10/20/24 07:12 Pulse 96 10/20/24 07:12 Resp 16 10/20/24 07:12 BP 117/64 10/20/24 07:12 Pulse Ox 97 10/20/24 07:12 O2 Del Method Room Air 10/20/24 07:12 BMI result Body Mass Index 20.3 Const: General: alert and awake HEENT: Head: Yes normocephalic and Yes atraumatic Neck: Neck: Yes supple Resp: Auscultation: clear to auscultation bilaterally Cardio: Heart sounds: S1 normal heart sound present and S2 normal heart sound present GI: Palpation (GI): Soft to palpation and nontender Extrem: General: Yes normal to inspection Objective Data Labs 10/18/24 15:10 10/19/24 07:32 Procedures Date of Service Date of Service: 10/20/24 Assessment & Plan Assessment and plan (1) ESRD (end stage renal disease): Status: Acute (2) Hyperkalemia: Status: Acute (3) Anemia: Status: Acute Plan ESRD on HD at [facility] via [facility] followed by Dr Dooley presented with seizure nephrogenic anemia REC HD per schedule sodium zirconium as needed renal diet P binders LEONEL w/u of qeus Sz Time Spent With Patient Time: Total time managing care of this patient today ____ minutes. Progress Note: Quality Stroke Does the patient have a stroke diagnosis?: No
--- NOTE | 2024-10-20 10:27 | P.DS_ITS ---
DS: Providers Provider Date of Service: 10/20/24 Date of admission: 10/13/24 00:22 Date of discharge: 10/20/24 Primary care physician: Unknown Physician Consults: 10/13/24 00:22 Consult to Nephrology Routine Consulting Provider: [facility] Reason for consultation: ESRD on HD, hyperK 10/13/24 08:23 Consult to Wound Care Routine Reason for consultation: sacral ulcer? Has provider been notified: No 10/16/24 07:51 Consult to Infectious Diseases Routine Consulting Provider: [facility] Reason for consultation: cdiff vs norovirus Has provider been notified: No 10/17/24 09:36 Addiction Medicine Provider Routine Consulting Provider: Addiction Covering Reason for consultation: reuesting methadone adjustment Attending physician on discharge: Isak Sandy Discharging clinician: Ramona Dey DS: Diagnosis Discharge Diagnosis (1) ESRD (end stage renal disease): Status: Acute (2) Hyperkalemia: Status: Acute (3) Anemia: Status: Acute DS: Summary Hospital Course Hospital Course: From H&P on the day of admission Patient is a 49-year-old female with a past medical history significant for end-stage renal disease on hemodialysis Thursday, chronic hyperkalemia, substance use disorder on methadone, pseudoseizures, who presented to the ED due to a witnessed seizure lasting about 5 minutes. Previously she was taking Keppra however she reports she does not take any antiseizure medications. She reports nausea and vomiting for multiple hours yesterday morning preceding the seizure episode. She denies any urinary or bowel incontinence during the seizure episode. She reports that she can remember the episode but was unable to talk during it. She has not had any nausea or vomiting since. She is unaware if she had nausea or vomiting prior to her previous seizure-like activity. She did go to hemodialysis earlier today and states that she felt very sick and weak afterwards which is not common for her. She denies any chest pain, shortness of breath, cough, abdominal pain, diarrhea, urinary symptoms including frequency, urgency or dysuria Acute diarrhea- improving cdif PCR + toxin negative. positive for norovirus. due to symptoms patient was started on treatment for C diff with PO vanco QID x10 days (Initiated 10/15). Symptoms have improved therefore we will continue treatment, we will need 5 more days upon discharge. ?pseudoseizure: remained awake during seizure per report. last admission seen by neurology and started on keppra for new onset seizure disorder. no further episodes during admission. Recommend out patient EEG. Hypertensive urgency medications adjusted - hydralazine 25 mg t.i.d. Discussed with Nephrology. Increase Coreg to 25 mg b.i.d. and can increase hydralazine as needed. Avoid further clonidine. Continue dialysis as scheduled LUE swelling Venous duplex negative acute on chronic hyperkalemia Hyperkalemia: Patient received Lokelma, calcium and insulin 10/12, 10/19 x2. Improved to 4. had HD on 10/19. We will continue baseline Lokelma. Patient refused follow-up labs on day of discharge. Discussed with Nephrology, okay to discharge with current dose of Lokelma. Discussed the importance of completing and being overall compliant with HD for management of K ARETHA on methadone reduced- increasing to 45 today. was seen by addiction medicine, discussed changing to suboxone due to issues with hyperkalemia. patient declined at this time. Anemia of chronic disease stable. no evidence of acute blood loss ESRD on HD. will continue HD as per outpatient schedule Time Attestation Discharge Coordination Time (in mins): 40 Quality: Safe Use of Opioids Does Pt have an Active Cancer Diagnosis on the Problem List?: No Quality: Stroke Does the patient have a stroke diagnosis?: No Physical Exam Vital Signs: Vital Signs: Last Vital Signs Temp 98.8 F 10/20/24 07:12 Pulse 96 10/20/24 07:12 Resp 16 10/20/24 07:12 BP 117/64 10/20/24 07:12 Pulse Ox 97 10/20/24 07:12 O2 Del Method Room Air 10/20/24 07:12 BMI result Body Mass Index 20.3 Const: General: alert and awake Nutritional Appearance: average body habitus Orientation/consciousness: patient oriented x3 Resp: Effort & Inspection: normal respiratory effort, able to speak in complete sentences, no respiratory distress and no use of accessory muscles Neuro: General: patient oriented x3 DS: Data Data Completed and Pending Completed studies during hospitalization [Text1]: Procedures Insertion of Endotracheal Airway into Trachea, Via Natural or Artificial Opening (09/24/24) Insertion of Infusion Device into Upper Vein, Percutaneous Approach (09/24/24) Performance of Urinary Filtration, Intermittent, Less than 6 Hours Per Day (09/24/24) Respiratory Ventilation, 24-96 Consecutive Hours (09/24/24) Transfusion of Nonautologous Red Blood Cells into Peripheral Vein, Percutaneous Approach (09/24/24) Discharge Plan Discharge Anticipated Discharge Date/Time: 10/20/24 10:39 Patient Disposition: Home, Self-Care Discharge Diagnosis: Diarrhea Hyperkalemia Uncontrolled blood pressure ESRD on HD Referrals: Keerthi Vo MD [Physician] - 3-5 Days (Be sure to bring your last dose letter when you present to the clinic on Tuesday 10/24, so they are aware of the dose increase. ) Physician,Yvonne J [Primary Care Provider] - 1 Week Discharge Medications: New vancomycin 125 mg Capsule 125 mg PO Q6H 5 Days Qty: 20 0RF carvedilol 25 mg Tablet 25 mg PO BID Qty: 90 0RF Protocol: Hold for SBP/HR < HOLD for SBP < : 90 HOLD for HR < : 60 hydralazine 25 mg Tablet 25 mg PO TID 90 Days Qty: 270 0RF Protocol: Hold for SBP< HOLD for SBP < : 90 methadone [Methadose] 10 mg/mL Concentrate 45 mg PO DAILY Qty: 30 0RF Rx Instructions: Partial Fill upon patient request. Continued sevelamer carbonate 800 mg tablet 800 mg PO TIDWM Lokelma 10 gram powder in packet 10 g PO SUTUTHSA levetiracetam 500 mg Tablet 500 mg PO BID Qty: 180 0RF nifedipine 60 mg Tablet Extended Release 24hr 60 mg PO BID Discontinued methadone 10 mg/mL Concentrate 30 mg PO DAILY carvedilol 12.5 mg Tablet 12.5 mg PO BID Qty: 180 0RF Protocol: Hold for SBP/HR < HOLD for SBP < : 90 HOLD for HR < : 60 Discharge Orders: Discharge Order (Routine); Ordered 10/20/24 Ordered By: Ramona Dey Activity on Discharge: As tolerated Stand Alone Forms: Patient Portal Discharge page Print Language: Greek Care Plan Goals: see below Health Concerns: Hyperkalemia Uncontrolled blood pressure Seizure diarrhea norovirus Plan of Treatment: continue baseline dose of lokelma and continue dialysis as scheduled for control of potassium levels Take Keppra twice daily as scheduled for control of seizures. Recommend outpatient EEG Dose of Coreg has been increased to 25 twice daily and you have been started on hydralazine for control of blood pressure dose of methadone increased to 45 mg daily diarrhea due to norovius and cdif colonization - complete course of po vancomycin Assessment: see discharge summary
[2024-10-20] MEDS: methADONE HCl 20 MG/2 ML ORAL.CONC 5 MG PO (10:45)
[2024-10-20] MEDS: 0.9 % Sodium Chloride Flush 3 ML SYRINGE IVFLUSH (10:46)
[2024-10-20 11:23] VITALS: BP 159/86; PULSE 81; RESP 16; TEMP 37.1; O2SAT 98
--- NOTE | 2024-10-20 11:31 | MHC.CM.PN ---
Addendum entered by Fadia Whitaker RN 10/20/24 13:44: dc summary faxed to [facility] at [employer] [phone] at 1:44pm. Original Note: PT MEDICALLY CLEARED FOR DC HOME SELF-CARE, [facility] AT [facility] (METHADONE DELIVERY) UPDATED AND CM WILL FAX DC SUMMARY TO SAB[facility] AT [phone], PT TO ARRANGE TRANSPORT.
== END 2024-10-20 13:30 | disposition home or self-care (01) | DRG 199 ==
LOC: HO.ED 10-13 00:45 → HO.EDOVER 10-13 02:23 → HO.IMC 10-13 17:17
PROVIDERS: Internal Medicine; Physician Assistant; Admitting Provider Student in an Organized Health Care Education/Training Program; Emergency Provider Internal Medicine; Visit Provider Physician Assistant Medical
DX: I16.0 Hypertensive urgency (principal); N18.6 End stage renal disease; A04.72 Enterocolitis due to Clostridium difficile, not specified as recurrent; D63.1 Anemia in chronic kidney disease; A08.11 Acute gastroenteropathy due to Norwalk agent; I12.0 Hypertensive chronic kidney disease with stage 5 chronic kidney disease or end stage renal disease; G40.909 Epilepsy, unspecified, not intractable, without status epilepticus; Z91.148 Patient's other noncompliance with medication regimen for other reason; E87.5 Hyperkalemia; F11.20 Opioid dependence, uncomplicated; Z99.2 Dependence on renal dialysis; Z79.899 Other long term (current) drug therapy
CPT/HCPCS: 36415; 80048; 80051; 80053; 80076; 82947; 83690; 84484; 85014; 85018; 85025; 85027; 86850; 86900; 86901; 87324; 87493; 87507; 90999; 93005; 93971; 94640; 99285; J0360; J0613; J1644; J1920; J2060; J2405; J2765

== ENCOUNTER → 2024-10-12 21:38 | Outpatient (BNV) | payer MEDICAID, SELFPAY | PROVIDERS: Admitting Provider Student in an Organized Health Care Education/Training Program; Emergency Provider Internal Medicine; Visit Provider Internal Medicine Cardiovascular Disease | DX: I10 Essential (primary) hypertension (principal); R94.31 Abnormal electrocardiogram [ECG] [EKG] | CPT/HCPCS: 93010 ==

== ENCOUNTER 2024-10-13 00:22 | Outpatient (BNV) | payer MEDICAID, SELFPAY | END 2024-10-18 09:49 | PROVIDERS: Admitting Provider Student in an Organized Health Care Education/Training Program; Emergency Provider Internal Medicine; Visit Provider Internal Medicine Cardiovascular Disease | DX: I49.8 Other specified cardiac arrhythmias (principal); E87.8 Other disorders of electrolyte and fluid balance, not elsewhere classified | CPT/HCPCS: 93010 ==

== ENCOUNTER 2024-10-13 00:22 | Outpatient (BNV) | payer MEDICAID, SELFPAY | END 2024-10-18 18:44 | PROVIDERS: Admitting Provider Student in an Organized Health Care Education/Training Program; Emergency Provider Internal Medicine; Visit Provider Radiology Diagnostic Radiology | DX: R22.42 Localized swelling, mass and lump, left lower limb (principal) | CPT/HCPCS: 93971 ==

== ENCOUNTER 2024-10-13 00:22 | Outpatient (BNV) | payer MEDICAID, SELFPAY | END 2024-10-15 10:16 | PROVIDERS: Admitting Provider Student in an Organized Health Care Education/Training Program; Emergency Provider Internal Medicine; Visit Provider Internal Medicine Cardiovascular Disease | DX: R07.9 Chest pain, unspecified (principal); R94.31 Abnormal electrocardiogram [ECG] [EKG]; E87.5 Hyperkalemia | CPT/HCPCS: 93010 ==

== ENCOUNTER → 2024-10-13 00:22 | Outpatient (BNV) | payer MEDICAID, SELFPAY | PROVIDERS: Admitting Provider Student in an Organized Health Care Education/Training Program; Emergency Provider Internal Medicine; Visit Provider Internal Medicine | DX: R19.7 Diarrhea, unspecified (principal) | CPT/HCPCS: 99222 ==

== ENCOUNTER → 2024-10-13 00:22 | Outpatient (BNV) | payer MEDICAID, SELFPAY | PROVIDERS: Admitting Provider Student in an Organized Health Care Education/Training Program; Emergency Provider Internal Medicine; Visit Provider Physician Assistant | DX: E87.5 Hyperkalemia (principal) | CPT/HCPCS: 99223; 99231; 99232; 99499 ==

== ENCOUNTER → 2024-10-13 00:22 | Outpatient (BNV) | payer MEDICAID, SELFPAY | PROVIDERS: Admitting Provider Student in an Organized Health Care Education/Training Program; Emergency Provider Internal Medicine; Visit Provider Nurse Practitioner Psychiatric/Mental Health | DX: F11.90 Opioid use, unspecified, uncomplicated (principal) | CPT/HCPCS: 99222 ==

== ENCOUNTER 2024-10-25 17:57 | Inpatient (IN) | payer MEDICAID, SELFPAY ==
--- NOTE | ~2024-10-25 | XR_ITS ---
CLINICAL HISTORY: dyspnea 1 view chest x-ray Comparison: 09/24/2024 Findings: Lungs are clear without acute infiltrates. No pneumothorax. Heart size normal. No acute bony abnormalities. Endotracheal tube has been removed. Right central line is unchanged. Impression: No acute processes This document has been electronically signed by: Trace Pacheco MD on 10/25/2024 19:51:19
--- NOTE | ~2024-10-25 | CT_ITS ---
CLINICAL HISTORY: head trauma, headache CT head without contrast Comparison: 09/24/2024 Findings: No intracranial mass, midline shift, hydrocephalus, or acute hemorrhage. No acute process in sinuses or mastoids. No acute bony abnormality. Small left frontal scalp hematoma. Impression: No acute intracranial process This document has been electronically signed by: Trace Pacheco MD on 10/25/2024 22:41:01
[2024-10-25 18:08] VITALS: BP 174/105; BP 194/117; PULSE 76; PULSE 86; RESP 16; TEMP 36.6; O2SAT 98; O2SAT 99; BMI 20.2
--- NOTE | 2024-10-25 18:38 | ECG_ITS ---
Test Reason : dizziness Blood Pressure : */* mmHG Vent. Rate : 78 BPM Atrial Rate : 78 BPM P-R Int : 178 ms QRS Dur : 116 ms QT Int : 400 ms P-R-T Axes : 41 -38 43 degrees QTcB Int : 456 ms Normal sinus rhythm Left axis deviation Septal infarct , age undetermined Abnormal ECG When compared with ECG of 18-Oct-2024 09:49, Septal infarct is now Present Referred By: Elena Raymond Electronically Signed By: MATT GUEVARA
--- OUTSIDE RECORDS SUMMARY | 2024-10-25 19:13 | XMS_ITS | Encounter Summary ---
Author Organization [facility] Address [address] [place] [phone] Phone Care Team Providers Care It Instructor Name Role Phone Unavailable Primary Care Provider Unavailabl e Encounter Details Date Type Department Care Team ([facility] st Contact Info) Description 10/12/2024 Office Communication [facility] [address] [phone] Raoul Dooley MD [address] [phone] Social History Tobacco Use Types [...]
--- OUTSIDE RECORDS SUMMARY | 2024-10-25 19:13 | XMS_ITS | Encounter Summary ---
Author Organization [facility] Address [address] [place] [phone] Phone Care Team Providers Care [employer] Worker Name Role Phone Unavailable Primary Care Provider Unavailabl e Encounter Details Date Type Department Care Team ([facility] st Contact Info) Description 07/23/2021 Treatment [facility] [address] [phone] Carrillo Valerio MD [address] [phone] End stage renal disease; Dependence on renal dialysis; Amyloidosis Social History Tobacco Use Types Packs/Day Years Used Date Smoking Tobacco: Never Assessed Comments Unknown Sex and Gender Information Value Date Recorded Sex Assigned at Not on file Legal Sex Female 11:46 AM EST Gender Identity Not on file Sexual Orientation Not on file documented as of this encounter Miscellaneous Notes * Dialysis Note - Carrillo Valerio MD - 07/23/2021 12:00 AM EST BASIC NOTE Patient: Simran Bolanos : 1975 Note Author: CARRILLO VALERIO MD Service Date: 07/23/2021 This patient was personally seen for a basic visit as part of routine monthly dialysis care for end stage renal disease. 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, unspecified Attending Senior Nuclear Medicine Technologist: MARIA T FRAGOSO Dialysis Location: [facility] Schedule: Shift: 2 OVERVIEW COMMENTS: Note in dialysis food general manager ADEQUACY ASSESSMENT Kt/V, Natural Log 1.01 (10/12/24) 0.73 (10/07/24) 0.71 (10/05/24) UREA REDUCTION RATIO (%) 58 (10/12/24) 50 (10/07/24) 49 (10/05/24) BUN 84 (10/12/24) 76 (10/07/24) 107 (10/05/24) BUN Post Dialysis 35 (10/12/24) 38 (10/07/24) 55 (10/05/24) Creatinine 10.58 (10/05/24) 10.55 (09/02/24) 9.08 (08/05/24) Bicarbonate (CO2) 17 (10/05/24) 25 (09/02/24) 21 (08/05/24) Sodium 129 (10/05/24) 132 (09/02/24) 132 (08/05/24) ANEMIA ASSESSMENT Hgb 8.4 (10/12/24) 7.5 (10/05/24) 7.8 (09/19/24) Iron Saturation (TSat) 12 (10/05/24) 31 (09/02/24) 59 (08/05/24) Ferritin 1,329 (10/05/24) 1,071 (09/02/24) 1,280 (08/05/24) Iron 13 (10/05/24) 36 (09/02/24) 93 (08/05/24) TIBC 108 (10/05/24) 118 (09/02/24) 158 (08/05/24) MCV 94.5 (10/05/24) 91.8 (09/02/24) 96.4 (08/05/24) Platelets 238 (10/05/24) 343 (09/02/24) 274 (08/05/24) BMM ASSESSMENT Calcium, Adjusted Total 9.0 10/05/24 9.8 09/02/24 9.4 08/05/24 Calcium 8.7 10/05/24 9.3 09/02/24 9.0 08/05/24 Phosphorus, Serum 5.8 10/05/24 10.9 09/14/24 8.8 09/02/24 Ca*PO4 50.5 10/05/24 81.8 09/02/24 80.1 08/05/24 PTH, Intact 182 08/05/24 Magnesium 1.9 10/05/24 2.3 09/02/24 2.6 08/05/24 Alkaline Phosphatase 133 10/05/24 65 09/02/24 58 08/05/24 Aluminum 7 08/05/24 7 07/11/24 NUTRITION ASSESSMENT Albumin 3.6 10/05/24 3.4 09/02/24 3.5 08/05/24 Potassium 5.3 10/05/24 6.0 09/02/24 4.6 08/26/24 ADDITIONAL LABS White Blood Cells 13.8 (10/05/24) 6.6 (09/02/24) 3.4 (08/05/24) Cholesterol 140 (08/05/24) HDL 46 (08/05/24) LDL-Calc 73 (08/05/24) Triglycerides 104 (08/05/24) Hep B Surface Antibody <4 (08/05/24) Uric Acid 6.6 (08/05/24) ADDITIONAL COMMENT COMMENTS: 10/12/24 recent [facility] notes reviewed, cont to miss riley, c/o nausea today 10/21/24 recent [facility] again--just d/c 09/05/24 same issues 09/14/24 stable 05/02/24 adjusting to HD 05/18/24 stable 05/30/24 doing ok 06/13/24 stable 06/21/24 doing ok 07/04/24 stable 08/26/24 same issues Signed by: CARRILLO VALERIO MD on 10/22/2024 at 05:48:12 AM Transcribed by: CARRILLO VALERIO MD on 10/22/2024 at 05:48:12 AM documented in this encounter Plan of Treatment Not on file documented as of this encounter Visit Diagnoses Diagnosis End stage renal disease Dependence on renal dialysis Amyloidosis documented in this encounter
--- OUTSIDE RECORDS SUMMARY | 2024-10-25 19:13 | XMS_ITS | Clinical Summary ---
Author Organization [facility] Address [address] [place] [address] Care Team Providers Care Synthetic Department Supervisor Name Role Phone ThaliaDevi oconnorshena OLIVEROS Primary Care Provider [phone] Allergies No known active allergies Medications amphetamine-dextro [...] 10/21/2021 Panic disorder 10/21/2021 Herpes simplex 08/22/2021 Encounters Date Type Department Care Team Description 10/07/2024 Population Health Risk Score [facility] (C3) Department [address] [address] Provider, Population Health Generic 09/24/2024 Orders Only GENERIC EXTERNAL DATA DEPARTMENT Provider, Generic External Data from Last 3 Months Social History Tobacco [...] 2005 HPV/Cotest 2005 Mammogram 2015 COVID-19 Vaccine (2023-2 5 season) 2024 07/01/2021, 09/21/2020, 08/24/2020 Influenza [...] on patient's age to complete this topic Procedures Procedure Name Priority Date/Time Associated Diagnosis Comments CT HEAD WO CONTRAST Routine 09/24/2024 4 :23 PM EST XR CHEST 1 VIEW Routine 09/24/2024 3:[address] ABDOMEN PELVIS WO CONTRAST Routine 09/24/2024 12:[address] CERVICAL SPINE WO CONTRAST Routine 09/24/2024 11:[address] CHEST WO CONTRAST Routine 09/24/2024 11:[address] HEAD WO CONTRAST Routine 09/24/2024 1 1:48 AM EST GLUCOSE, WHOLE BLOOD Routine 09/24/2024 10:59 AM EST XR CHEST 1 VIEW Routine 09/24/2024 10:38 AM EST RED BLOOD COUNT Routine 09/24/2024 10:15 AM EST TYPE AND SCREEN Routine 09/24/2024 10:15 AM EST HOLD GREEN GEL Routine 09/24/2024 10:10 AM EST HOLD GREEN GEL Routine 09/24/2024 10:10 AM EST HOLD LAVENDER - POSSIBLE HEMATOLOGY Routine 09/24/2024 10:10 AM EST HOLD GREEN GEL Routine 09/24/2024 10:10 AM EST ACETAMINOPHEN LEVEL Routine 09/24/2024 1 0:10 AM EST SALICYLATE Routine 09/24/2024 10:10 AM EST VENOUS BLOOD GAS Routine 09/24/2024 10:0 4 AM EST HIGH SENSITIVITY TROPONIN I Routine 09/24/2024 9:44 AM EST LACTIC ACID Routine 09/24/2024 9:44 AM EST ETHANOL Routine 09/24/2024 9:44 AM EST PROCALCITONIN Routine 09/24/2024 9:44 AM EST LIPASE Routine 09/24/2024 9:44 AM EST C-REACTIVE PROTEIN Routine 09/24/2024 9: 44 AM EST CREATINE KINASE, TOTAL Routine 9:44 AM EST MAGNESIUM Routine 09/24/2024 9:44 AM EST BASIC METABOLIC PANEL Routine 09/24/2024 9:44 AM EST HEPATIC FUNCTION PANEL Routine 9:44 AM EST HCG, TOTAL, QN Routine 09/24/2024 9:44 AM EST TSH W/REFLEX TO FT4 Routine 09/24/2024 9 :44 AM EST B TYPE NATRIURETIC PEPTIDE (BNP) Routine 09/24/2024 9:44 AM EST AMMONIA (P) Routine 09/24/2024 9:44 AM EST SLIDE REVIEW Routine 09/24/2024 9:44 AM EST CBC WITH AUTO DIFFERENTIAL Routine 09/24/2024 9:44 AM EST from Last 3 Months Results * CT Head w/o Contrast (09/24/2024 4:23 PM EST) Only the most recent of2 resultswithin the time period is included. Anatomical Region Laterality Modality Head, Neck Computed Tomogra phy 09/24/2024 4:23 PM EST Narrative 09/24/2024 4:24 PM EST ? [facility] ?[address] ?[place] [address] ? CT Scan Report ? Signed ? Patient: Windham,Simran ?MR#: [id number] ? : 1975 ?Acct:[id number] ? Age/Sex: 49 / F ?ADM Date: 03//25 ? Loc: HO.ICU ?255-1 ? Attending Dr: Carlton Vasquez MD ? Ordering Physician: Elena Raymond DO ?? Date of Service: 09/24/24 ?? Procedure(s): CT head/brain wo IV con ?? Accession Number(s): [id number] ? cc: Elena Raymond DO; [facility] ? Report Number: ?? [id number]: Total DLP = ??599.00 mGy-cm ? CLINICAL HISTORY: acute change, very HTNive, seizures rule out bleed ? CT head without contrast. ? COMPARISON: CT head dated 09/24/24 at 10:36 EST ? FINDINGS: ?? The visualized paranasal sinuses are clear. The mastoid air cells are ?? clear. ?? No calvarial fracture. ? No evidence for mass or mass effect. ?? No intracranial hemorrhage or abnormal extra-axial fluid collection. Basal ?? ganglia mineralization present bilaterally, stable. ?? No evidence of hydrocephalus. The basilar cisterns are patent. ?? Posterior fossa appears unremarkable. ? IMPRESSION: ?? 1. No acute intracranial findings. ? This document has been electronically signed by: Darian Fernandez MD on ?? 09/24/2024 16:23:09 ? Dictated By: ?Darian Fernandez MD ? Signed By: ?<Electronically signed by Darian Fernandez MD in OV> ?09/24/24 1624 ? DD/ 1623 ? TD/TT: 09/24/243 ? Education Rep: ? Procedure Note Roxanne, Toño - 09/26/[address] [place] [address] [address] Scan Report Signed Patient: Agata Bolanos#: [id number] : 1975Acct:[id number] Age/Sex: 49 / FADM Date: 09/24/24 Loc: HO.ICU 255-[address]: Carlton Vasquez MD Ordering Physician: Elena Raymond DO Date of Service: 09/24/24 Procedure(s): CT head/brain wo IV con Accession Number(s): [id number] cc: Elena Raymond DO; [facility] Report Number: [id number]: Total DLP = 599.00 mGy-cm CLINICAL HISTORY: acute change, very HTNive, seizures rule out bleed CT head without contrast. COMPARISON: CT head dated 09/24/24 at 10:36 EST FINDINGS: The visualized paranasal sinuses are clear. The mastoid air cells are clear. No calvarial fracture. No evidence for mass or mass effect. No intracranial hemorrhage or abnormal extra-axial fluid collection. Basal ganglia mineralization present bilaterally, stable. No evidence of hydrocephalus. The basilar cisterns are patent. Posterior fossa appears unremarkable. IMPRESSION: 1. No acute intracranial findings. This document has been electronically signed by: Darian Fernandez MD on 09/24/2024 16:23:09 Dictated By: Darian Fernandez MD Signed By: <Electronically signed by Darian Fernandez MD in OV> 09/24/24 1624 DD/ 1623 TD/TT: 09/24/24 1623 Education Rep: [facility] External Provider IMG CT PROCEDURES Final Result * XR Chest 1 View (09/24/2024 3:41 PM EST) Only the most recent of2 resultswithin the time period is included. Anatomical Region Laterality Modality Chest Radiographic Davina ging 09/24/2024 3:41 PM EST Narrative 09/24/2024 3:42 PM EST ? [facility] ?[address] ?[place] [address] ?XRay Report ? Signed ? Patient: Simran Bolanos ?MR#: [id number] ? : 1975 ?Acct:[id number] ? Age/Sex: 49 / F ?ADM Date: 09/24/24 ? Loc: HO.ICU ?255-1 ? Attending Dr: Carlton Vasquez MD ? Ordering Physician: Elena Raymond DO ?? Date of Service: 09/24/24 ?? Procedure(s): XR chest 1V ?? Accession Number(s): [id number] ? cc: Elena Raymond DO; [facility] ? CLINICAL HISTORY: intubated ETT placement ? Single view of the chest. ? COMPARISON: XR chest dated 09/24/24 at 10:26 EST ? FINDINGS: ?? Endotracheal tube terminates 2.3 cm above the yaron. ?? Stable large bore double-lumen central venous right subclavian line, tip ?? overlying the right atrium. ? Low lung volumes. Borderline cardiomegaly. ?? No consolidation. ?? No pleural effusion or pneumothorax. ?? No fracture identified. ? IMPRESSION: ?? 1. Endotracheal tube terminates appropriately 2.3 cm above the yaron. ? This document has been electronically signed by: Darian Fernandez MD on ?? 09/24/2024 15:41:40 ? Dictated By: ?Darian Fernandez MD ? Signed By: ?<Electronically signed by Darian Fernandez MD in OV> ?09/24/24 1542 ? DD/ 1541 ? TD/TT: 09/24/24 1541 ? Education Rep: ? Procedure Note Donotuseinterpreter, Image - 09/26/2024 [place] [address] XRay Report Signed Patient: Agata Bolanos#: [id number] : 1975Acct:[id number] Age/Sex: 49 / FADM Date: 09/24/24 Loc: [facility] 255-[address]: Carlton Vasquez MD Ordering Physician: Elena Raymond DO Date of Service: 09/24/24 Procedure(s): XR chest 1V Accession Number(s): [id number] cc: Elena Raymond DO; [facility] CLINICAL HISTORY: intubated ETT placement Single view of the chest. COMPARISON: XR chest dated 09/24/24 at 10:26 EST FINDINGS: Endotracheal tube terminates 2.3 cm above the yaron. Stable large bore double-lumen central venous right subclavian line, tip overlying the right atrium. Low lung volumes. Borderline cardiomegaly. No consolidation. No pleural effusion or pneumothorax. No fracture identified. IMPRESSION: 1. Endotracheal tube terminates appropriately 2.3 cm above the yaron. This document has been electronically signed by: Darian Fernandez MD on 09/24/2024 15:41:40 Dictated By: Darian Fernandez MD Signed By: <Electronically signed by Darian Fernandez MD in OV> 09/24/24 1542 DD/ 1541 TD/TT: 09/24/24 1541 Education Rep: [facility] External Provider IMG XR PROCEDURES Final Result * CT Abdomen Pelvis w/o Contrast (09/24/2024 12:00 PM EST) Anatomical Region Laterality Modality Body, Pelvis, Abdomen Computed T omography 09/24/2024 12:0 0 PM EST Narrative 09/24/2024 12:02 PM EST ? [facility] ?[address] ?[place] [address] ? CT Scan Report ? Signed ? Patient: Windham,Simran ?MR#: [id number] ? : 1975 ?Acct:[id number] ? Age/Sex: 49 / F ?ADM Date: 09/24/24 ? Loc: HO.[facility] ?ICU-1 ? Attending Dr: Carlton Vasquez MD ? Ordering Physician: Elena Raymond DO ?? Date of Service: 09/24/24 ?? Procedure(s): CT abdomen pelvis wo IV con ?? Accession Number(s): [id number] ? cc: Elena Raymond DO; [facility] ? Report Number: ?? [id number]: Total DLP = ??734.51 mGy-cm ? CLINICAL HISTORY: ams, found down ? CT abdomen and pelvis without contrast ? Comparison: None ? Findings: ?? No consolidation or effusion. ? 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 ?? No bowel obstruction, pneumoperitoneum, or pneumatosis. ?? There is body wall edema. ? Pelvic contents unremarkable. Normal appendix. ?? A Culver catheter is seen. Its position is uncertain though it does not ?? appear to be within the urinary bladder. It is likely within vagina and ?? cervix. ?? No acute fracture. ? Vascular calcifications are noted. ? IMPRESSION: ?? 1.Culver catheter appears to be malpositioned and likely within the vagina ?? and cervix. Please correlate clinically and adjust accordingly. ?? 2.Body wall edema. ?? 3. No definite acute intra-abdominal process. ? This document has been electronically signed by: Kenton Naqvi MD on ?? 09/24/2024 12:00:58 ? Dictated By: ?Kenton Naqvi MD ? Signed By: ?<Electronically signed by Kenton Naqvi MD in OV> ? 09/24/24 1201 ? DD/ 1200 ? TD/TT: 09/24/24 1200 ? Education Rep: ? Procedure Note Roxanne, Image - 09/26/[address] [address] [address] Scan Report Signed Patient: Agata Bolanos#: [id number] : 1975Acct:[id number] Age/Sex: 49 / FADM Date: 09/24/24 Loc: [facility] ICU-[address]: Carlton Vasquez MD Ordering Physician: Elena Raymond DO Date of Service: 09/24/24 Procedure(s): CT abdomen pelvis wo IV con Accession Number(s): [id number] cc: Elena Raymond DO; [facility] Report Number: [id number]: Total DLP = 734.51 mGy-cm CLINICAL HISTORY: ams, found down CT abdomen and pelvis without contrast Comparison: None Findings: No consolidation or effusion. 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 No bowel obstruction, pneumoperitoneum, or pneumatosis. There is body wall edema. Pelvic contents unremarkable. Normal appendix. A Culver catheter is seen. Its position is uncertain though it does not appear to be within the urinary bladder. It is likely within vagina and cervix. No acute fracture. Vascular calcifications are noted. IMPRESSION: 1.Culver catheter appears to be malpositioned and likely within the vagina and cervix. Please correlate clinically and adjust accordingly. 2.Body wall edema. 3. No definite acute intra-abdominal process. This document has been electronically signed by: Kenton Naqvi MD on 09/24/2024 12:00:58 Dictated By: Kenton Naqvi MD Signed By: <Electronically signed by Kenton Naqvi MD in OV> 09/24/24 1201 DD/ 1200 TD/TT: 09/24/24 1200 Education Rep: [facility] External Provider IMG CT PROCEDURES Edited Result - Final * CT Cervical Spine w/o Contrast (09/24/2024 11:53 AM EST) Anatomical Region Laterality Modality Spine, C-spine Computed Tomogra phy 09/24/2024 11:5 3 AM EST Narrative 09/24/2024 11:55 AM EST ? [facility] ?[address] ?[place] [address] ? CT Scan Report ? Signed ? Patient: Windham,Simran ?MR#: [id number] ? : 1975 ?Acct:[id number] ? Age/Sex: 49 / F ?ADM Date: 09/24/24 ? Loc: HO.ED ? Attending Dr: ? Ordering Physician: Elena Raymond DO ?? Date of Service: 09/24/24 ?? Procedure(s): CT cervical spine wo IV con ?? Accession Number(s): [id number] ? cc: Elena Raymond DO; [facility] ? Report Number: ?? [id number]: Total DLP = ??485.62 mGy-cm ? CLINICAL HISTORY: fall neck trauma ? CT cervical spine without contrast ? Comparison: None ? Findings: ?? Normal vertebral body alignment. ?? Degenerative changes are seen at C5-6 with disc space narrowing. ?? No acute fractures or dislocations. ? No acute findings on limited view of the intracranial contents. ?? Soft tissues of the neck are normal. ?? Lung apices are clear. ? IMPRESSION: ?? No acute findings. ? This document has been electronically signed by: Kenton Naqvi MD on ?? 09/24/2024 11:53:56 ? Dictated By: ?Kenton Naqvi MD ? Signed By: ?<Electronically signed by Kenton Naqvi MD in OV> ? 09/24/24 1155 ? DD/ 1153 ? TD/TT: 09/24/24 1153 ? Education Rep: ? Procedure Note Toño Oliveira - 09/26/[address] [place] [address] [address] Scan Report Signed Patient: Agata Bolanos#: [id number] : 1975Acct:[id number] Age/Sex: 49 / FADM Date: 09/24/24 Loc: HO.ED Attending Dr: Ordering Physician: Elena Raymond DO Date of Service: 09/24/24 Procedure(s): CT cervical spine wo IV con Accession Number(s): [id number] cc: Elena Raymond DO; [facility] Report Number: [id number]: Total DLP = 485.62 mGy-cm CLINICAL HISTORY: fall neck trauma CT cervical spine without contrast Comparison: None Findings: Normal vertebral body alignment. Degenerative changes are seen at C5-6 with disc space narrowing. No acute fractures or dislocations. No acute findings on limited view of the intracranial contents. Soft tissues of the neck are normal. Lung apices are clear. IMPRESSION: No acute findings. This document has been electronically signed by: Kenton Naqvi MD on 09/24/2024 11:53:56 Dictated By: Kenton Naqvi MD Signed By: <Electronically signed by Kenton Naqvi MD in OV> 09/24/24 1155 DD/ 1153 TD/TT: 09/24/24 1153 Education Rep: [facility] External Provider IMG CT PROCEDURES Edited Result - Final * CT Chest w/o Contrast (09/24/2024 11:52 AM EST) Anatomical Region Laterality Modality Body, Chest Computed Tomogra phy 09/24/2024 11:5 2 AM EST Narrative 09/24/2024 11:53 AM EST ? [facility] ?[address] ?[place] [address] ? CT Scan Report ? Signed ? Patient: Simran Bolanos ?MR#: [id number] ? : 1975 ?Acct:[id number] ? Age/Sex: 49 / F ?ADM Date: 09/24/24 ? Loc: HO.ED ? Attending Dr: ? Ordering Physician: Elena Raymond DO ?? Date of Service: 09/24/24 ?? Procedure(s): CT chest wo IV con ?? Accession Number(s): [id number] ? cc: Elena Raymond DO; [facility] ? Report Number: ?? [id number]: Total DLP = ??308.02 mGy-cm ? CLINICAL HISTORY: ams, found down ? CT chest without contrast ? Comparison: None ? Findings: ? A dialysis catheter is present the tip of which is in the right atrium. ?? Heart demonstrates no acute abnormalities. ?? The visualized thyroid and mediastinum are unremarkable. ? Soft tissue emphysema is seen along the left anterior chest. ? There may be body wall edema. ?? Soft tissue calcifications are seen in the left lateral anterior chest and ?? adjacent to the shoulder and humerus. ?? No acute fractures. ? IMPRESSION: ? 1. Small amount of soft tissue emphysema left anterior chest. ?? 2. Mild body wall edema. ?? 3. Soft tissue calcifications adjacent to shoulder and humerus. ? This document has been electronically signed by: Kenton Naqvi MD on ?? 09/24/2024 11:52:04 ? Dictated By: ?Kenton Naqvi MD ? Signed By: ?<Electronically signed by Kenton Naqvi MD in OV> ? 09/24/241152 ? DD/ 1152 ? TD/TT: 09/24/24 1152 ? Education Rep: ? Procedure Note Donotuseinterpreter, Image - 09/26/[address] [place] [address] [address] Scan Report Signed Patient: Agata Bolanos#: [id number] : 1975Acct:[id number] Age/Sex: 49 / FADM Date: 09/24/24 Loc: HO.ED Attending Dr: Ordering Physician: Elena Raymond DO Date of Service: 09/24/24 Procedure(s): CT chest wo IV con Accession Number(s): [id number] cc: Elena Raymond DO; [facility] Report Number: [id number]: Total DLP = 308.02 mGy-cm CLINICAL HISTORY: ams, found down CT chest without contrast Comparison: None Findings: A dialysis catheter is present the tip of which is in the right atrium. Heart demonstrates no acute abnormalities. The visualized thyroid and mediastinum are unremarkable. Soft tissue emphysema is seen along the left anterior chest. There may be body wall edema. Soft tissue calcifications are seen in the left lateral anterior chest and adjacent to the shoulder and humerus. No acute fractures. IMPRESSION: 1. Small amount of soft tissue emphysema left anterior chest. 2. Mild body wall edema. 3. Soft tissue calcifications adjacent to shoulder and humerus. This document has been electronically signed by: Kenton Naqvi MD on 09/24/2024 11:52:04 Dictated By: Kenton Naqvi MD Signed By: <Electronically signed by Kenton Naqvi MD in OV> 09/24/24 1153 DD/ 1152 TD/TT: 09/24/24 1152 Education Rep: [facility] External Provider IMG CT PROCEDURES Edited Result - Final * (ABNORMAL) Glucose, Whole Blood (09/24/2024 10:59 AM EST) Glucose, Whole Blood 54(LL) 60 - 115 mg/dL [facility] Comment:METER #: [id number] 09/24/2024 10:5 9 AM EST 09/24/2024 11:03 AM EST Generic External Data Provider LAB BLOOD ORDERAB LES Final Result Performing Organization Address [facility] Co de Phone Number [facility] [address] [place] [phone] * Hold Green Gel (09/24/2024 10:10 AM EST) Only the most recent of3 resultswithin the time period is included. Hold Green Gel See Note [facility] Comment:Specimen held untest ed for 24 hours; Call to requestChemistry testing. 09/24/2024 10:1 0 AM EST 09/24/2024 10:31 AM EST Generic External Data Provider HISTORICAL/NON OR DERABLE LABS Final Result Performing Organization Address [facility]/ZIP Co de Phone Number [facility] [address] [place] [phone] * Hold Lavender - Possible Hematology (09/24/2024 10:10 AM EST) Hold Lavender - Possible Hematololgy SEE NOTE [facility] Comment:Specimen will be hel d untested for 8 hours. Call Hematologyif testing is desired. 09/24/2024 10:1 0 AM EST 09/24/2024 10:30 AM EST us Generic External Data Provider HISTORICAL/NON OR DERABLE LABS Final Result Performing Organization Address [facility] Co de Phone Number [facility] [address] [place] [phone] * Acetaminophen level (09/24/2024 10:10 AM EST) Acetaminophen LAB <3 <30 mcg/mL [facility] 09/24/2024 10:1 0 AM EST 09/24/2024 10:20 AM EST us Generic External Data Provider LAB BLOOD ORDERAB LES Final Result Performing Organization Address [facility] Phone Number [facility] [address] [place] [phone] * (ABNORMAL) Salicylate (09/24/2024 10:10 AM EST) Salicylate <5.0(L) 15 - 30 mg/dL [facility] 09/24/2024 10:1 0 AM EST 09/24/2024 10:20 AM EST us Generic External Data Provider LAB BLOOD ORDERAB LES Final Result Performing Organization Address [facility] de Phone Number [facility] [address] [place] [phone] * Slide Review (09/24/2024 9:44 AM EST) Slide Review VERIFIED [facility] 09/24/2024 9:44 AM EST 09/24/2024 9:51 AM EST us Generic External Data Provider LAB BLOOD ORDERAB LES Final Result Performing Organization Address [facility] Co de Phone Number [facility] [address] [place] [phone] * (ABNORMAL) High Sensitivity Troponin I (09/24/2024 9:44 AM EST) [facility] TROPONIN I HIGH SENSITIVITY 195.9(HH) <3.5 - 17.0 ng/L [facility] Comment:Critical value for t est(s): TROPONIN Results called to arturrosalie back by: PERLA Person calling:MARIAM Date: 09/24/24Time:1055The [place] high sensitivity Troponin-I results should beused in conjunction with other diagnostic information suchas ECG, clinical observations and information, and patientsymptoms to aid in the diagnosis of [place]. 09/24/2024 9:44 AM EST 09/24/2024 9:51 AM EST Generic External Data Provider LAB BLOOD ORDERAB LES Final Result Performing Organization Address [facility] Co de Phone Number [facility] [address] [place] [phone] * Ethanol (09/24/2024 9:44 AM EST) [facility] ETHANOL (MG/DL) IN SER/PLAS <10 mg/dL [facility] Comment:Serum/plasma ethanol results are to be used formedical/treatment purposes only. 09/24/2024 9:44 AM EST 09/24/2024 9:51 AM EST us Generic External Data Provider LAB BLOOD ORDERAB LES Final Result Performing Organization Address [facility] Co de Phone Number [facility] [address] [place] [phone] * (ABNORMAL) TSH with Reflex to Free T4 (09/24/2024 9:44 AM EST) [facility] TSH reflex Free T4 61.26(H) 0.32 - 4.0 uIU/mL [facility] 09/24/2024 9:4 4 AM EST 09/24/2024 9:51 AM EST us Generic External Data Provider LAB BLOOD ORDERAB LES Final Result [facility] [address] [place] [phone] * Procalcitonin (09/24/2024 9:44 AM EST) Procalcitonin 0.99 ng/mL [facility] Comment: Procalcitonin (PCT) Reference Range:PCT greater than 2.0 ng/mL: ??A PCT level above 2.0 ng/mL onthe first day of ICU admission is associated with a highrisk for progression to severe sepsis and/or septic shock.PCT less than 0.5 ng/mL: ??A PCT level below 0.5 ng/mL on thefirst day of ICU admission is associated with a low risk forprogression to severe sepsis and/or septic shock.PCT levels below 0.5 ng/mL do not exclude an infection.Care must be taken in interpreting PCT results fromdifferent laboratories and methodologies.References:[employer]/Society of CriticalCare Medicine Consensus Conference Committee. ??Definitionsfor sepsis and organ failure and guidelines for the use ofinnovative therapies in sepsis. ??Crit Care Ptb3560;20(6):864-874.Fran B, Kyleigh KL, Toyin H, et al. ??Calcitoninprecursors are reliable markers of sepsis in a medicalintensive care unit. ??Crit Care Med 2000;363:600-607.Nestor S, Mahesh K, Lucina C, et al. ??Diagnosticvalue of procalcitonin, interleukin-6 and interleukin-8 incritically ill patients admitted with suspected sepsis. ??AMJ Respir Crit Care Med 2001;164:396-402.US Food and Drug Administration. ??510(k) substantialequivalence determination decision summary for [facility] PCTLIA.http://www.accessdata.fda.fov/cdrh_docs/reviews/F571580.pdf.Published July 2004. ??Accessed December 2016. 09/24/2024 9:44 AM EST 09/24/2024 9:51 AM EST us Generic External Data Provider LAB BLOOD ORDERAB LES Final Result [facility] [address] [place] [address] [phone] * (ABNORMAL) CBC auto differential (09/24/2024 9:44 AM EST) White Blood Count 18.7(H) 4.8 - 10.8 X10*3/uL [facility] Red Blood Count 2.39(L) 4.20 - 5.50 X10*6/uL [facility] Hemoglobin 6.8(LL) 12.0 - 16.0 g/dl [facility] Comment:Test was verified by repeat analysis.Critical HGB called to and read back by Jack 09/24/24 at 1003 by FINN. Hematocrit 20.9(LL) 37.0 - 47.0 % [facility] Comment:Test was verified by repeat analysis.Critical HCT called to and read back by Jack 09/24/24 at 1003 by FINN. Mean Corpuscular Volume 87.4 80.0 - 98.0 fL [facility] Mean Corpuscular Hemoglobin 28.5 27.0 - 33.0 pg [facility] Mean Corpuscular HGB Conc 32.5 31.0 - 35.0 g/dl [facility] Red Cell Distribution Width 15.7 11.0 - 16.0 % [facility] Platelet Count 356 160 - 400 X10*3/uL [facility] Mean Platelet Volume 10.0 9.4 - 12.3 fL [facility] Neutrophils Percent Auto 93.6(H) 45 - 73 % [facility] Imm Gran Pct Auto 0.8(H) 0.0 - 0.4 % [facility] Lymphocytes Percent Auto 3.0(L) 20 - 40 % [facility] Monocytes Percent Auto 2.4 2 - 11 % [facility] Eosinophils Percent Auto 0.0 0 - 4 % [facility] Basophils Percent Auto 0.2 0 - 2 % [facility] NRBC Pct Auto 0.0 0.0 - 0.2 /100WBC [facility] Neutrophils Absolute Auto 17.5(H) 2.0 - 8.3 x10*3/uL [facility] Imm Gran Abs Auto 0.14(H) 0.00 - 0.03 X10*3/uL [facility] Lymphocytes Absolute Auto 0.6(L) 1.2 - 4.9 X10*3/uL [facility] Monocytes Absolute Auto 0.4 0.1 - 1.2 X10*3/uL [facility] Eosinophils Absolute Auto 0.0 0.0 - 0.4 X10*3/uL [facility] Basophils Absolute Auto 0.0 0.0 - 0.2 X10*3/uL [facility] NRBC Abs Auto 0.000 0.0 - 0.012 X10*3/uL [facility] 09/24/2024 9:44 AM EST 09/24/2024 9:51 AM EST us Generic External Data Provider LAB BLOOD ORDERAB LES Edited Result - Final Performing Organization Address City/[facility]/ZIP Co de Phone Number [facility] [address] [place] [phone] * (ABNORMAL) C-reactive Protein (09/24/2024 9:44 AM EST) C Reactive Protein 3.89(H) < or = 0.50 mg/dL [facility] 09/24/2024 9:44 AM EST 09/24/2024 9:51 AM EST us Generic External Data Provider LAB BLOOD ORDERAB LES Final Result Performing Organization Address City/[facility]/ZIP Co de Phone Number [facility] [address] [place] [phone] * hCG, Total, Quantitative (09/24/2024 9:44 AM EST) HCG Quantitative <2 mIU/mL [facility] Comment:Weeks post LMP Appro ximate hCG(Last Menstrual Period) Range (mIU/ml)3 - 4 weeks 9 - 1304 - 5 weeks 75 - 2,6005 - 6 weeks 850 - 20,8006 - 7 weeks 4000 - 100,2007 - 12 weeks 11,500 - 289,90145 - 16 weeks 18,300 - 137,81769 - 29 weeks (2nd trimester) 1,400 - 53,91879 - 41 weeks (3rd trimester) 940 - 60,000The [place] B- hCG assay is used for the early detection ofpregnancy; it cannot be used to diagnose any conditionunrelated to . If a B-hCG level is not supportedby the clinical evidence, results should be confirmed by analternative method (qualitative urine hCG, for example). 09/24/2024 9:44 AM EST 09/24/2024 9:51 AM EST Generic External Data Provider LAB BLOOD ORDERAB LES Final Result Performing Organization Address [facility] Co de Phone Number [facility] [address] [place] [phone] * (ABNORMAL) B Type Natriuretic Peptide (BNP) (09/24/2024 9:44 AM EST) B Type Natriuretic Peptide 2,222(H) <100 pg/mL [facility] Comment:For those patients w ho are being treated with Natrecor(nesiritide, recombinant BNP), BNP testing should beperformed at least two hours post treatment in order toensure that only endogenous levels of BNP are detected. 09/24/2024 9:44 AM EST 09/24/2024 9:51 AM EST Generic External Data Provider LAB BLOOD ORDERAB LES Final Result Performing Organization Address [facility]/ZIP Co de Phone Number [facility] [address] [place] [phone] * Magnesium (09/24/2024 9:44 AM EST) Pathologist [facility] Magnesium 2.3 1.6 - 2.6 mg/dL [facility] 09/24/2024 9:44 AM EST 09/24/2024 9:51 AM EST Generic External Data Provider LAB BLOOD ORDERAB LES Final Result Performing Organization Address [facility] Co de Phone Number [facility] [address] [place] [address] [phone] * Lipase (09/24/2024 9:44 AM EST) [facility] Lipase 18 8 - 78 U/L [facility] 09/24/2024 9:44 AM EST 09/24/2024 9:51 AM EST Generic External Data Provider LAB BLOOD ORDERAB LES Final Result Performing Organization Address [facility] de Phone Number [facility] [address] [place] [phone] * (ABNORMAL) Lactic Acid (09/24/2024 9:44 AM EST) [facility] Lactic Acid 2.4(HH) 0.5 - 2.0 mmol/L [facility] Comment:Critical value for t est(s): LACTA Results called to ingrid back by: PERLA Person calling:MARIAM Date: 09/24/24Time:1055 09/24/2024 9:44 AM EST 09/24/2024 9:51 AM EST Generic External Data Provider LAB BLOOD ORDERAB LES Final Result Performing Organization Address [facility] de Phone Number [facility] [address] [place] [phone] * (ABNORMAL) Creatine Kinase, Total (09/24/2024 9:44 AM EST) Creatine Kinase Total 360(H) 26 - 140 U/L [facility] 09/24/2024 9:44 AM EST 09/24/2024 9:51 AM EST us Generic External Data Provider LAB BLOOD ORDERAB LES Final Result Performing Organization Address [facility] Phone Number [facility] [address] [place] [phone] * Ammonia, Plasma (09/24/2024 9:44 AM EST) Pathologist [facility] Ammonia (P) 23 13 - 55 umol/L [facility] 09/24/2024 9:44 AM EST 09/24/2024 10:20 AM EST us Generic External Data Provider LAB BLOOD ORDERAB LES Final Result Performing Organization Address [facility] Phone Number [facility] [address] [place] [phone] * (ABNORMAL) Hepatic Function Panel (09/24/2024 9:44 AM EST) Pathologist [facility] Bilirubin, Total 0.5 0.0 - 1.0 mg/dL [facility] Bilirubin, Direct 0.2 0.0 - 0.5 mg/dL [facility] Aspartate Amino Transferase 18 5 - 31 U/L [facility] Alanine Aminotransferase <6 0 - 31 U/L [facility] Total Protein 6.3(L) 6.5 - 8.0 g/dL [facility] Albumin Level 3.2(L) 3.5 - 5.0 g/dL [facility] Alkaline Phosphatase 83 39 - 117 U/L [facility] 09/24/2024 9:44 AM EST 09/24/2024 9:51 AM EST us Generic External Data Provider LAB BLOOD ORDERAB LES Final Result [facility] [address] [place] [phone] * (ABNORMAL) Basic Metabolic Panel (09/24/2024 9:44 AM EST) Sodium 140 135 - 145 mmol/L [facility] Potassium 7.3(HH) 3.3 - 5.1 mmol/L [facility] Comment:Critical value for t est(s): POTS Results called to andread back by: [email or web address] Person calling:[email or web address] of [place] Date: 09/24/24Time:1055Test was verified by repeat analysis. Chloride 93(L) 96 - 108 mmol/L [facility] Carbon Dioxide 16(L) 22 - 29 mmol/L [facility] Anion Gap 38(H) 12 - 20 [facility] Urea Nitrogen (BUN) 103(H) 9 - 16 mg/dL [facility] Creatinine, Serum 13.63(HH) 0.5 - 1.4 mg/dL [facility] Comment:Critical value for t est(s): CREAT Results called to andread back by: [email or web address] Person calling:[employer] Date: 09/24/24Time:1055 Creatinine Clr Calc Pharmacy 3.6 [facility] Comment:Provided height and weight: 152.4 cm,48.9 kg.eGFR (calculated from the MDRD study equation) and eCrCl(calculated from the Cockcroft-Gault equation) are based ondifferent parameters and may not yield comparable results.If eCrCl result is absurd, please check patient'sheight/weight. Estimated Glomerular Filt Rate 3 [facility] Comment:Chronic Kidney Disea se: Estimated GFR < 60 mL/min/1.95n2Zsjabm Kidney Disease: Estimated GFR < 15 mL/min/1.73m2 Glucose 70 60 - 115 mg/dL [facility] Calcium 8.8 8.4 - 10.2 mg/dL [facility] 09/24/2024 9:44 AM EST 09/24/2024 9:51 AM EST us Generic External Data Provider LAB BLOOD ORDERAB LES Final Result [facility] [address] [place] [phone] from Last 3 Months Care Teams Synthetic Department Supervisor Relationship Specialty Start Date End Date Simone Sloan PA-C [address] [place] [phone] PCP - General Family Medicine 11/16/23
--- OUTSIDE RECORDS SUMMARY | 2024-10-25 19:13 | XMS_ITS | Encounter Summary ---
Author Organization [facility] Address [address] [place] [phone] Phone Care Team Providers Care Optical Fabrication Technician Name Role Phone Unavailable Primary Care Provider Unavailabl e Encounter Details Date Type Department Care Team ([facility] st Contact Info) Description 10/13/2024 TCM in Dialysis Clinic [facility] [address] [phone] Carrillo Valerio MD [address] [phone] Social History Tobacco Use Types Packs/Day Years Used Date Smoking Tobacco: Never Assessed Comments Unknown Sex and Gender Information Value Date Recorded Sex Assigned at Not on file Legal Sex Female 11:46 AM EST Gender Identity Not on file Sexual Orientation Not on file documented as of this encounter Progress Notes * Carrillo Valerio MD - 10/13/2024 12:00 AM EDT Patient: Simran Bolanos : 1975 Note Type: Dialysis TCM Service Date: 10/13/2024 The patient was seen for a [id number] visit as part of Transitional Care Management services. 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, unspecified Attending Steam Station Supervisor: MARIA T FRAGOSO MD Dialysis Location: [facility] Schedule: Shift: 2 INTERACTIVE CONTACT Contact with the patient or caregiver was made or attempted within 2 business days of discharge - details in the medical record. HOSPITALIZATION SUMMARY Patient transitioned from: Hospital Patient transitioned to: Home Admit Date: 09/27/2024 Discharge Date: 09/30/2024 Discharged info reviewed: Followed-up on or reviewed need for pending tests/treatments as noted Reason for admission: AMS COMMENTS: F/u with Neuro for new onset sz HOME MEDICATIONS Discharge med list reviewed - changes reconciled and discussed with patient. Active treatment medication orders reviewed with changes noted. PHYSICAL EXAM Exam not performed. DIALYSIS PRESCRIPTION Dry weight during admission reviewed - no change to EDW. CARE COORDINATION Post-discharge follow-up appointments reviewed with the patient. COMMENTS: Neuro f/u IMPRESSION & PLAN COMMENTS: Stress importance of taking meds and not missing HD VISIT DIAGNOSES CPT Code 43745 - High complexity, seen 8-14 days post discharge or moderate complexity, seen days of discharge. N18.6 End stage renal disease Signed by: CARRILLO VALERIO MD on 10/13/2024 at 04:49:36 AM documented in this encounter Plan of Treatment Not on file documented as of this encounter Visit Diagnoses Not on filedocumented in this encounter
--- OUTSIDE RECORDS SUMMARY | 2024-10-25 19:14 | XMS_ITS | Encounter Summary ---
Author Organization [facility] Address [address] [place] [phone] Phone Care Team Providers Care Development Writer Name Role Phone Unavailable Primary Care Provider Unavailabl e Encounter Details Date Type Department Care Team ([facility] st Contact Info) Description 10/21/2024 Treatment [facility] [address] [phone] Carrillo Valerio MD [address] [phone] End stage renal disease; Dependence [...] Dialysis Note - Carrillo Valerio MD - 10/21/2024 12:00 AM EDT BASIC NOTE Patient: Simran Bolanos : 1975 Note Author: CARRILLO VALERIO MD Service Date: 10/21/2024 This patient was personally seen for a basic visit as part of routine monthly dialysis care for end stage renal disease. 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, unspecified Attending Entertainment Production Professional: MARIA T FRAGOSO Dialysis Location: [facility] Schedule: Shift: 2 OVERVIEW COMMENTS: Note in dialysis room manager ADEQUACY ASSESSMENT Kt/V, Natural Log 1.01 [...] 6.6 (08/05/24) ADDITIONAL COMMENT COMMENTS: 10/12/24 recent [facility] notes reviewed, cont to miss riley, c/o nausea today 09/05/24 same issues 09/14/24 stable 05/02/24 adjusting to HD 05/18/24 stable 05/30/24 doing ok 06/13/24 stable 06/21/24 doing ok 07/04/24 stable 08/26/24 same issues Signed by: CARRILLO VALERIO MD on 10/22/2024 at 05:48:31 AM Transcribed by: CARRILLO VALERIO MD on 10/22/2024 at 05:48:31 AM documented in this encounter Plan of Treatment Not on file documented as of this encounter Visit Diagnoses Diagnosis End stage renal disease Dependence on renal dialysis Amyloidosis documented in this encounter
--- OUTSIDE RECORDS SUMMARY | 2024-10-25 19:14 | XMS_ITS | Clinical Summary ---
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 Herpes simplex 08/22/2021 Encounters Date Type Department Care Team Description 10/21/2024 Treatment [facility] [address] [place] [phone] Raoul Dooley MD End stage renal disease; Dependence on renal dialysis; Amyloidosis 10/13/2024 [facility] in Dialysis Clinic [facility] [address] [place] [phone] Raoul Dooley MD 10/12/2024 Treatment [facility] [address] [phone] Raoul Dooley MD End stage renal disease; Dependence on renal dialysis; Amyloidosis 10/12/2024 Office Communication [facility] [address] [phone] Raoul Dooley MD 09/14/2024 Treatment [facility] [address] [phone] Raoul Dooley MD 09/07/2024 Treatment [facility] [address] [phone] Raoul Dooley MD 08/29/2024 Treatment [facility] [address] [phone] Raoul Dooley MD 08/26/2024 Orders Only [facility] [address] [phone] Raoul Dooley MD 08/26/2024 Treatment [facility] [address] [phone] Raoul Dooley MD 08/24/2024 Treatment [facility] [address] [phone] Drake Alas MD 08/23/2024 Treatment [facility] [address] [phone] Raoul Dooley MD from Last 3 Months [...] Procedure Name Priority Date/Time Associated Diagnosis Comments LIH () Routine 10/21/2024 3:00 AM EDT HEMOGLOBIN Routine 10/21/2024 3:00 AM EDT KT/V NATURAL LOG, URR () Routine 10/21/2024 3:00 AM EDT LIH (HC) Routine 10/12/2024 3:00 AM EDT HEMOGLOBIN Routine 10/12/2024 3:00 AM EDT KT/V NATURAL LOG, URR (HC) Routine 10/12/2024 3:00 AM EDT LIH (HC) Routine 10/07/2024 3:00 AM EDT KT/V NATURAL LOG, URR (HC) Routine 10/07/2024 3:00 AM EDT HEPATITIS B SURFACE ANTIGEN W/REFL CONFIRM Routine 10/05/2024 3:00 AM EDT TRANSFERRIN SATURATION Routine 3:00 AM EDT PROTEIN, TOTAL, SERUM Routine 10/05/2024 3:00 AM EDT MAGNESIUM Routine 10/05/2024 3:00 AM EDT LIH (HC) Routine 10/05/2024 3:00 AM EDT ELECTROLYTE PANEL Routine 10/05/2024 3:0 0 AM EDT LACTATE DEHYDROGENASE Routine 10/05/2024 3:00 AM EDT GLUCOSE, RANDOM Routine 10/05/2024 3:00 AM EDT CREATININE, SERUM Routine 10/05/2024 3:0 0 AM EDT BILIRUBIN, TOTAL Routine 10/05/2024 3:00 AM EDT AST Routine 10/05/2024 3:00 AM EDT ALKALINE PHOSPHATASE Routine 10/05/2024 3:00 AM EDT ALT Routine 10/05/2024 3:00 AM EDT CALCIUM PHOSPHORUS PRODUCT, ADJUSTED (HC) Routine 10/05/2024 3:00 AM EDT FERRITIN Routine 10/05/2024 3:00 AM EDT CBC AND DIFFERENTIAL Routine 10/05/2024 3:00 AM EDT KT/V NATURAL LOG, URR (HC) Routine 10/05/2024 3:00 AM EDT HEMOGLOBIN Routine 09/19/2024 3:00 AM EST PHOSPHATE [...] EST KT/V NATURAL LOG, URR (HC) Routine 08/05/2024 3:00 AM EST COLLECTION DATE (HC) Routine 08/05/2024 3:00 AM EST from Last 3 Months Results * LIH (10/21/2024 3:00 AM EDT) Only the most recent of14 resultswithin the time period is included. Lipemia Normal Normal [facility] Icterus Normal Normal [facility] Hemolysis Normal Normal [facility] 10/21/2024 3:00 AM EDT 10/22/2024 1:28 PM EDT us Raoul Dooley MD LAB [id number] SOLICITED RESULTS Final Result Performing Organization Address [facility] de Phone Number [facility] [address] [place] [address] * (ABNORMAL) Kt/V Natural Log, URR (10/21/2024 3:00 AM EDT) Only the most recent of6 resultswithin the time period is included. Treatment Time 85 min [facility] Pre-Weight, lb 51.5 kg [facility] Post-Weight, lb 50.3 kg [facility] Ultrafiltration Rate 17(H) <=13 mL/kg/hr [facility] Comment: Recommend achieving Ultrafiltration Rate (UFR) <=10 mL/kg/hr References: Keenan WALTERS et al. Kidney Int. 2010; 79(2):250-257 BUN Post Dialysis 38(H) 7 - 25 mg/dL [facility] BUN 84(H) 7 - 25 mg/dL [facility] UREA REDUCTION RATIO (%) 55(L) >=65 % [facility] Kt/V Natural Log 0.88(L) >=1.2 [facility] 10/21/2024 3:00 AM EDT 10/22/2024 1:28 PM EDT aRoul Dooley MD LAB [id number] SOLICITED RESULTS Final Result Performing Organization Address [facility] de Phone Number [facility] [address] [place] [address] * (ABNORMAL) Hemoglobin (10/21/2024 3:00 AM EDT) Only the most recent of4 resultswithin the time period is included. Hgb 7.3(L) 11.2 - 15.7 g/dL [facility] Hemoglobin x 3 21.9(L) 33.6 - 47.1 g/dL [facility] 10/21/2024 3:00 AM EDT 10/22/2024 1:23 PM EDT Raoul Dooley MD LAB BLOOD ORDERABLES Final Re sult Performing Organization Address [facility] Co de Phone Number [facility] [address] [place] [address] * (ABNORMAL) Calcium Phosphorus Product, Adjusted (10/05/2024 3:00 AM EDT) Only the most recent of3 resultswithin the time period is included. Pathologist [facility] Albumin 3.6 3.6 - 5.4 g/dL [facility] Calcium 8.7 8.6 - 10.3 mg/dL [facility] Phosphorus, Serum 5.8(H) 2.5 - 5.0 mg/dL [facility] Ca*PO4 50.5 <55.0 mg2/dL2 [facility] Calcium, Adjusted Total 9.0 8.6 - 10.3 mg/dL [facility] CA*PO4 CORRCTD 52.2 <55.0 mg2/dL2 [facility] 10/05/2024 3:00 AM EDT 10/06/2024 2:44 PM EDT Raoul Dooley MD LAB [id number] SOLICITED RESULTS Final Result Performing Organization Address City/[facility]/ZIP Co de Phone Number [facility] [address] [place] [address] * Hepatitis B Surface Ag w/Reflex Confirmation (10/05/2024 3:00 AM EDT) Only the most recent of3 resultswithin the time period is included. [facility] Hep B Surface Antigen Negative Negative [facility] 10/05/2024 3:00 AM EDT 10/06/2024 2:44 PM EDT Raoul Dooley MD LAB BLOOD ORDERABLES Final Re sult [facility] [address] [place] [address] * (ABNORMAL) TSAT (10/05/2024 3:00 AM EDT) Only the most recent of3 resultswithin the time period is included. Pathologist [facility] Iron 13(L) 50 - 170 ug/dL [facility] Transferrin 77(L) 250 - 380 mg/dL [facility] TIBC 108(L) 211 - 406 ug/dL [facility] Iron Saturation (TSat) 12(L) 22 - 52 % [facility] 10/05/2024 3:00 AM EDT 10/06/2024 2:44 PM EDT Raoul Dooley MD LAB BLOOD ORDERABLES Final Re sult [facility] [address] [place] [address] * (ABNORMAL) CBC and Differential (10/05/2024 3:00 AM EDT) Only the most recent of2 resultswithin the time period is included. DIFFERENTIAL MANUAL, 2 Not Indicated [facility] White Blood Cells 13.8(H) 4.0 - 10.0 K/uL [facility] RBC 2.53(L) 3.93 - 5.22 M/uL [facility] Hgb 7.5(L) 11.2 - 15.7 g/dL [facility] Hemoglobin x 3 22.5(L) 33.6 - 47.1 g/dL [facility] Hematocrit 23.9(L) 34.1 - 44.9 % [facility] MCV 94.5 79.4 - 94.8 fL [facility] MCH 29.6 25.6 - 32.2 pg [facility] MCHC 31.4(L) 32.2 - 35.5 g/dL [facility] Platelets 238 182 - 369 K/uL [facility] RDW 14.6(H) 11.7 - 14.4 % [facility] Neutrophils Relative 84.0(H) 34.0 - 71.1 % [facility] Lymphocytes Relative 7.5(L) 19.3 - 51.7 % [facility] Monocytes 7.4 4.7 - 12.5 % [facility] Eosinophils Relative 0.3(L) 0.7 - 5.8 % [facility] Basophils Relative 0.2 0.1 - 1.2 % [facility] Immature Granulocytes 0.6 0.0 - 1.0 % [facility] 10/05/2024 3:00 AM EDT 10/06/2024 2:22 PM EDT Raoul Dooley MD LAB BLOOD ORDERABLES Final Re sult Performing Organization Address [facility] Co de Phone Number [facility] [address] [place] [address] * ALT (10/05/2024 3:00 AM EDT) Only the most recent of3 resultswithin the time period is included. ALT (SGPT) 18 10 - 49 U/L [facility] 10/05/2024 3:00 AM EDT 10/06/2024 2:44 PM EDT Raoul Dooley MD LAB BLOOD ORDERABLES Final Re sult Performing Organization Address [facility] de Phone Number [facility] [address] [place] [address] * AST (10/05/2024 3:00 AM EDT) Only the most recent of3 resultswithin the time period is included. AST (SGOT) 14 <34 U/L [facility] 10/05/2024 3:00 AM EDT 10/06/2024 2:44 PM EDT us Raoul Dooley MD LAB BLOOD ORDERABLES Final Re sult Performing Organization Address [facility] de Phone Number [facility] [address] [place] [address] * (ABNORMAL) Protein, total (10/05/2024 3:00 AM EDT) Only the most recent of3 resultswithin the time period is included. Total Protein 5.8(L) 6.4 - 8.9 g/dL [facility] 10/05/2024 3:00 AM EDT 10/06/2024 2:44 PM EDT us Raoul Dooley MD LAB BLOOD ORDERABLES Final Re sult Performing Organization Address [facility] Co de Phone Number [facility] [address] [place] [address] * (ABNORMAL) Alkaline phosphatase (10/05/2024 3:00 AM EDT) Only the most recent of3 resultswithin the time period is included. Alkaline Phosphatase 133(H) 46 - 116 U/L [facility] 10/05/2024 3:00 AM EDT 10/06/2024 2:44 PM EDT Raoul Dooley MD LAB BLOOD ORDERABLES Final Re sult Performing Organization Address [facility] Co de Phone Number [facility] [address] [place] [address] * Magnesium (10/05/2024 3:00 AM EDT) Only the most recent of3 resultswithin the time period is included. Magnesium 1.9 1.9 - 2.7 mg/dL [facility] 10/05/2024 3:00 AM EDT 10/06/2024 2:44 PM EDT Raoul Dooley MD LAB BLOOD ORDERABLES Final Re sult Performing Organization Address [facility] Co de Phone Number [facility] [address] [place] [address] * (ABNORMAL) Lactate dehydrogenase (10/05/2024 3:00 AM EDT) Only the most recent of3 resultswithin the time period is included. LDH 397(H) 120 - 246 U/L [facility] 10/05/2024 3:00 AM EDT 10/06/2024 2:44 PM EDT Raoul Dooley MD LAB BLOOD ORDERABLES Final Re sult Performing Organization Address [facility] de Phone Number [facility] [address] [place] [address] * Glucose, random (10/05/2024 3:00 AM EDT) Only the most recent of3 resultswithin the time period is included. Glucose 90 74 - 109 mg/dL [facility] 10/05/2024 3:00 AM EDT 10/06/2024 2:44 PM EDT us Raoul Dooley MD LAB BLOOD ORDERABLES Final Re sult Performing Organization Address [facility] de Phone Number [facility] [address] [place] [address] * (ABNORMAL) Ferritin (10/05/2024 3:00 AM EDT) Only the most recent of3 resultswithin the time period is included. Ferritin 1,329(H) 10 - 291 ng/mL [facility] 10/05/2024 3:00 AM EDT 10/06/2024 2:44 PM EDT us Raoul Dooley MD LAB BLOOD ORDERABLES Final Re sult Performing Organization Address [facility] de Phone Number [facility] [address] [place] [address] * (ABNORMAL) Creatinine, serum (10/05/2024 3:00 AM EDT) Only the most recent of3 resultswithin the time period is included. Creatinine 10.58(H) 0.55 - 1.02 mg/dL [facility] 10/05/2024 3:00 AM EDT 10/06/2024 2:44 PM EDT us Raoul Dooley MD LAB BLOOD ORDERABLES Final Re sult Performing Organization Address [facility] de Phone Number [facility] [address] [place] [address] * (ABNORMAL) Bilirubin, total (10/05/2024 3:00 AM EDT) Only the most recent of3 resultswithin the time period is included. Total Bilirubin 0.2(L) 0.3 - 1.2 mg/dL [facility] 10/05/2024 3:00 AM EDT 10/06/2024 2:44 PM EDT Raoul Dooley MD LAB BLOOD ORDERABLES Final Re sult Performing Organization Address [facility] de Phone Number [facility] [address] [place] [address] * (ABNORMAL) Electrolyte panel (10/05/2024 3:00 AM EDT) Only the most recent of3 resultswithin the time period is included. Sodium 129(L) 136 - 145 mEq/L [facility] Potassium 5.3(H) 3.4 - 5.0 mEq/L [facility] Chloride 93(L) 98 - 107 mEq/L [facility] Bicarbonate (CO2) 17(L) 21 - 31 mEq/L [facility] Anion Gap 19(H) 3 - 14 mEq/L [facility] 10/05/2024 3:00 AM EDT 10/06/2024 2:44 PM EDT Raoul Dooley MD LAB BLOOD ORDERABLES Final Re sult Performing Organization Address [facility] de Phone Number [facility] [address] [place] [address] * (ABNORMAL) Phosphorus (09/14/2024 3:00 AM EST) Only the most recent of2 resultswithin the time period is included. Phosphorus, Serum 10.9(H) 2.5 - 5.0 mg/dL [facility] 09/14/2024 3:00 AM EST 09/16/2024 1:21 PM EST Raoul Dooley MD LAB BLOOD ORDERABLES Final Re sult Performing Organization Address [facility] de Phone Number [facility] [address] [place] [address] * Collection Date (08/26/2024 3:00 AM EST) Only the most recent of2 resultswithin the time period is included. Collection Date See Comment [facility] Comment: Patient sample received may exceed specimen stability, based on the collection date electronically provided. ??When reviewing patient results, verify collection information and consider specimen stability before acting on any critical or panic results. 08/26/2024 3:00 AM EST Raoul Dooley MD LAB [id number] SOLICITED RESULTS Final Result Performing Organization Address [facility] de Phone Number [facility] [address] [place] [address] * Potassium (08/26/2024 3:00 AM EST) Only the most recent of7 resultswithin the time period is included. Potassium 4.6 3.4 - 5.0 mEq/L [facility] 08/26/2024 3:00 AM EST 08/29/2024 1:08 PM EST Raoul Dooley MD LAB BLOOD ORDERABLES Final Re sult Performing Organization Address [facility] de Phone Number [facility] [address] [place] [address] * Confirmation Test HCV (08/05/2024 3:00 AM EST) Hep C Ab Confirmation Not needed [facility] 08/05/2024 3:00 AM EST 08/08/2024 1:53 PM EST Raoul Dooley MD LAB BLOOD ORDERABLES Final Re sult Performing Organization Address [facility] de Phone Number [facility] [address] [place] [address] * HEPATITIS C ABS W/REFLEX RNA DETECTR (08/05/2024 3:00 AM EST) Hep C Virus Ab Non-Reacti ve Non-Reacti ve [facility] 08/05/2024 3:00 AM EST 08/08/2024 1:42 PM EST Raoul Dooley MD LAB [id number] SOLICITED RESULTS Final Result Performing Organization Address [facility] de Phone Number [facility] [address] [place] [address] * Aluminum level (08/05/2024 3:00 AM EST) Pathologist [facility] Aluminum 7 1 - 20 ug/L [facility] 08/05/2024 3:00 AM EST 08/08/2024 2:05 PM EST Raoul Dooley MD LAB BLOOD ORDERABLES Final Re sult Performing Organization Address [facility] de Phone Number [facility] [address] [place] [address] * (ABNORMAL) Hepatitis B Surface Antibody (08/05/2024 3:00 AM EST) [facility] Hep B Surface Antibody <4(A) mIU/mL [facility] Comment: Interpretation: <10: No Immunity >=10: Probable Immunity 08/05/2024 3:00 AM EST 08/08/2024 1:42 PM EST Raoul Dooley MD LAB BLOOD ORDERABLES Final Re sult Performing Organization Address [facility] de Phone Number [facility] [address] [place] [address] * (ABNORMAL) CBC (08/05/2024 3:00 AM EST) [facility] White Blood Cells 3.4(L) 4.0 - 10.0 [...] ORDERABLES Final Re sult Performing Organization Address [facility] de Phone Number [facility] [address] [place] [address] * Uric Acid (08/05/2024 3:00 AM EST) Uric Acid 6.6 2.3 - 6.6 mg/dL [facility] 08/05/2024 3:00 AM EST 08/08/2024 1:42 PM EST Raoul Dooley MD LAB BLOOD ORDERABLES Final Re sult Performing Organization Address [facility] Phone Number [facility] [address] [place] [address] * PTH, Intact (08/05/2024 3:00 AM EST) PTH, Intact 182 160 - 721 pg/mL [facility] Comment: Suggested (KDIGO) ESRD maintenance range is two to nine times the upper normal limit (80.1 pg/mL) for the laboratory. 08/05/2024 3:00 AM EST 08/08/2024 1:42 PM EST Raoul Dooley MD LAB BLOOD ORDERABLES Final Re sult Performing Organization Address [facility] de Phone Number [facility] [address] [place] [address] * (ABNORMAL) Lipid panel (08/05/2024 3:00 AM [...] Final Re sult [facility] [address] [place] [address] from Last 3 Months [place]
--- NOTE | 2024-10-25 19:21 | ED_ITS ---
HPI - Nausea/Vomiting/Diarrhea General Chief complaint: Nausea/Vomiting/Diarrhea Stated complaint: dizziness, n/v, dialysis pt Time Seen by Provider: 10/25/24 18:38 Source: patient, EMS and old records reviewed Mode of arrival: EMS Limitations: no limitations History of Present Illness ED Provider: DARREL HPI Narrative: 49 yo female ESRD on HD MWF last HD on Thursday of her recent discharge, anemia, substance abuse, seizures on keppra, HTN, she notes she has not taken the vanco for c diff and her keppra since DC. She comes in today with c/o feeling dizzy, she did fall and hit her head no LOC not on thinners, no neck pain, she also has dizziness/n/v. She states she doesn't feel well and reports this is likely due to missing her HD. She also has a headache MD elicited complaint: nausea, vomiting and other (headache, dizziness) Onset (ago): day(s) (3) Description of vomiting: watery Associated nausea: Yes Associated abdominal pain: No Pain consistency: intermittent Severity: mild Exacerbating factors: movement (standing up) Relieving factors: none Context: other Associated symptoms: headaches, loss of appetite, nausea/vomiting, weakness, anxiety and other Related Data Home Medications ?Medication ?Instructions ?Recorded ?Confirmed sevelamer carbonate 800 mg tablet 800 mg PO TIDWM 09/24/24 10/13/24 sodium zirconium cyclosilicate 10 10 g PO SUTUTHSA 09/24/24 10/13/24 gram oral powder packet (Lokelpa) nifedipine 60 mg tablet,extended 60 mg PO BID 10/13/24 10/13/24 release 24 hr Previous Rx's ?Medication ?Instructions ?Recorded levetiracetam 500 mg tablet 500 mg PO BID #180 tabs 09/30/24 carvedilol 25 mg tablet 25 mg PO BID #90 tabs 10/20/24 hydralazine 25 mg tablet 25 mg PO TID 90 days #270 tabs 10/20/24 methadone 10 mg/mL oral 45 mg (4.5 mL) PO DAILY #30 mL 10/20/24 concentrate (Methadose) vancomycin 125 mg capsule 125 mg PO Q6H 5 days #20 caps 10/20/24 Allergies Allergy/AdvReac Type Severity Reaction Status Date / Time No Known Allergies Allergy Verified 10/25/24 18:11 Review of Systems 2 Review of Systems: Constitutional : No Weight loss, No Fever, No Chills ENT/Mouth : No sore throat, No Rhinorrhea Eyes: No Swelling, No Redness Cardiovascular : No Chest Pain, No SOB, NoEdema Respiratory : No Cough, No Sputum, No Wheezing Gastrointestinal : Positive Nausea, Positive Vomiting, positive Diarrhea, no abdominal Pain, No Hematochezia, No Melena Genitourinary : No Dysuria, No Urinary Frequency, No Hematuria, No Urgency Musculoskeletal : No joint pain, No Myalgias, No Joint Swelling Skin : No Skin Lesions, No rash Neuro : No Weakness, No Numbness, pos Dizziness, No Headache Psych : No Anxiety/Panic, No Depression All other systems reviewed and are negative. Gastrointestinal: Gastrointestinal: Reports nausea PMFSH Past Medical History Attestation statement: The following information was validated with the patient. Source: old records reviewed Medical History Diarrhea HTN (hypertension) Drug abuse ESRD (end stage renal disease) Social History Social History Housing: House Do you presently have visiting nurse or other home services: No Alcohol intake: unknown Comment: pt refusing bed alarm Patient Tobacco Use Status: Tobacco use Unknown Advance Directives: Yes Advance Directives on File: Yes Advance Directives Date on File: 09/25/24 Do you have a plan to hurt others: No Plan service: No Physical Exam 2 Vital Signs: Vital Signs: Last Vital Signs Temp 98.4 F 10/25/24 22:00 Pulse 90 10/25/24 22:00 Resp 14 10/25/24 22:00 BP 161/105 H 10/25/24 22:00 Pulse Ox 100 10/25/24 22:00 O2 Del Method Room Air 10/25/24 22:00 BMI result Body Mass Index 20.2 Appearance: Alert. Oriented X3. No acute distress. Eyes: Pupils equal, round and reactive to light. ENT: Pharynx normal. bilateral periorbital areas have old ecchymosis, anterior forehead abrasion/contusion Neck: Normal inspection. Neck supple. CVS: Normal heart rate and rhythm. Pulses normal. chest: cath site c/d/i Respiratory: No respiratory distress. Breath sounds normal. Abdomen: Soft and non-tender. Skin: Skin warm and dry. Normal skin color. Normal skin turgor. Extremities: No lower extremity edema. Neuro: Oriented X 3. No motor deficit. No sensory deficit. CN2-12 intact Course Course Course Narrative: transfused 1 UPRBC Reevaluation(s) Reevaluation #1: signed out to Jose pending head CT Medications Administered Discontinued Medications Generic Name Dose Route Start Last Admin Trade Name Ricardoq PRN Reason Stop Dose Admin Albuterol Sulfate 5 mg 10/25/24 21:15 10/25/24 21:32 Albuterol Sulfate (0.083%) 2.5 Mg/3 Ml Vial.Neb INHALE 10/25/24 21:16 5 mg ONCE ONE Administration Dextrose 25 gm 10/25/24 21:15 10/25/24 21:47 Dextrose 50 % 25 Gm/50 Ml Syringe IVPUSH 10/25/24 21:16 25 gm ONCE ONE Administration Hydralazine HCl 10 mg 10/25/24 18:38 10/25/24 19:31 Hydralazine Hcl 20 Mg/Ml Vial IVPUSH 10/25/24 18:39 10 mg ONCE ONE Administration Protocol Calcium Gluconate 2 gm in 100 mls @ 50 mls/hr 10/25/24 18:38 10/25/24 21:45 Calcium Gluconate IV 10/25/24 20:37 50 mls/hr ONCE ONE Infusion Insulin Human Regular 5 unit 10/25/24 21:15 10/25/24 21:44 Insulin Regular, Human 100 Unit/Ml 10 Ml Vial IVPUSH 10/25/24 21:16 5 unit ONCE ONE Administration Levetiracetam 500 mg 10/25/24 18:44 10/25/24 19:31 Levetiracetam 500 Mg Tablet PO 10/25/24 18:45 500 mg ONCE ONE Administration Lorazepam 1 mg 10/25/24 19:48 10/25/24 21:35 Lorazepam 1 Mg Tablet PO 10/25/24 19:49 1 mg ONCE ONE Administration Ondansetron HCl 4 mg 10/25/24 20:12 10/25/24 20:25 Ondansetron Hcl 4 Mg/2 Ml Vial IVPUSH 10/25/24 20:13 4 mg ONCE ONE Administration Sodium Bicarbonate 50 meq 10/25/24 18:38 10/25/24 19:31 Sodium Bicarbonate 8.4% 50 Meq/50 Ml Syringe IVPUSH 10/25/24 18:39 50 meq ONCE ONE Administration Sodium Bicarbonate 50 meq 10/25/24 21:15 10/25/24 21:48 Sodium Bicarbonate 8.4% 50 Meq/50 Ml Syringe IVPUSH 10/25/24 21:16 Not Given ONCE ONE Sodium Zirconium Cyclosilicate 5 gm 10/25/24 18:44 10/25/24 19:30 Sodium Zirconium Cyclosilicate 5 Gm Powd.Pack PO 10/25/24 18:45 5 gm ONCE ONE Administration Medical Decision Making Medical Decision Making MDM Narrative: 49 yo female ESRD on HD MWF last HD on Thursday of her recent discharge, anemia, substance abuse, seizures on keppra, HTN here with headaches after fall and HTN as well as n/v and dizziness in setting of HTN and noncompliance with HD - at this time labs, EKG, empiric hyperK treatment started. CT head for trauma ordered. IV hydralazine. 2229 ; Patient's head CT with no acute bleed case discussed with Dr. Vasquez will take the patient to ICU patient will get dialysis Differential Diagnosis Differential Diagnoses: The differential diagnosis associated with the presentation includes hyperkalemia, head trauma, anemia Admission/Observation Consideration of admission/observation: Escalation of care including admission/observation considered message sent to ICU and renal both aware Dr. Vasquez and Dr. Dooley notified admit after CT head. Lab Data MDM Lab Attestation statement: I reviewed the patient's lab results. 10/25/24 19:21 10/25/24 20:41 Labs: Lab Results 10/25/24 10/25/24 10/25/24 Range/Units 19:21 19:33 20:41 WBC 5.8 (4.8-10.8) X10*3/uL RBC 2.25 L (4.20-5.50) X10*6/uL Hgb 6.8 L* (12.0-16.0) g/dl Hct 21.4 L (37.0-47.0) % MCV 95.1 (80.0-98.0) fL MCH 30.2 (27.0-33.0) pg MCHC 31.8 (31.0-35.0) g/dl RDW 14.9 (11.0-16.0) % Plt Count 328 (160-400) X10*3/uL MPV 9.8 (9.4-12.3) fL Immature Gran % (Auto) 0.3 (0.0-0.4) % Neut % (Auto) 77.3 H (45-73) % Lymph % (Auto) 11.8 L (20-40) % [place] % (Auto) 8.7 (2-11) % Eos % (Auto) 1.0 (0-4) % Baso % (Auto) 0.9 (0-2) % Lymph # (Auto) 0.7 L (1.2-4.9) X10*3/uL [place] # (Auto) 0.5 (0.1-1.2) X10*3/uL Eos # (Auto) 0.1 (0.0-0.4) X10*3/uL Baso # (Auto) 0.1 (0.0-0.2) X10*3/uL Abs Immat Gran (auto) 0.02 (0.00-0.03) X10*3/uL Absolute Neuts (auto) 4.5 (2.0-8.3) x10*3/uL Absolute Nucleated RBC 0.000 (0.0-0.012) X10*3/uL Nucleated RBC % (auto) 0.0 (0.0-0.2) /100WBC Sodium 135 (135-145) mmol/L Potassium 8.9 H* D (3.3-5.1) mmol/L Chloride 99 (96-108) mmol/L Carbon Dioxide 18 L (22-29) mmol/L Anion Gap 27 H (12-20) BUN 107 H (9-16) mg/dL Creatinine 10.23 H* (0.5-1.4) mg/dL Estim Creat Clear Calc 5.2 Estimated GFR 4 Random Glucose 75 (60-115) mg/dL Calcium 9.9 D (8.4-10.2) mg/dL Magnesium 1.9 (1.6-2.6) mg/dL Total Bilirubin 0.5 (0.0-1.0) mg/dL Direct Bilirubin 0.1 (0.0-0.5) mg/dL AST 38 H (5-31) U/L ALT 93 H (0-31) U/L Alkaline Phosphatase 178 H (39-117) U/L Total Protein 6.9 (6.5-8.0) g/dL Albumin 3.8 (3.5-5.0) g/dL Lipase 31 (8-78) U/L Influenza Type A (PCR) NEGATIVE (Negative) Influenza Type B (PCR) NEGATIVE (Negative) RSV RNA Qual (PCR) NEGATIVE (Negative) SARS-CoV-2 RNA (RT-PCR) NEGATIVE (Negative) Blood Type A Positive Antibody Screen NEGATIVE Crossmatch See Detail Independent Interpretation I performed an independent interpretation of an: EKG and Plain X-Ray (no edema) Interpretation: Rate: 78 Rhythm: NSR [place]: left Normal P waves. Normal KELLY. Normal QRS complex. ST T wave : T waves peaked, no NARCISA, inverted t waves V1 qTC: 456 prior studies: concern for hyperK+ The study has been interpreted contemporaneously by me. . Radiology Impression Discussion of test interpretation with radiology: I have reviewed the radiologist's reading. Independent Historian Clinical information obtained from an independent historian. History obtained from or confirmed by: EMS External Record Review External record reviewed: Inpatient record and Outpatient record Critical Care Time Critical Care Time Critical Care Time: Yes Total Critical Care Time: 60 Attestation: consults, emergent K+ management, calcium, HC03, insulin, albuterol, lokelma, admit for emergent HD I attest to this time spent taking care of the patient Discharge Plan Discharge Clinical Impression: Medical non-compliance, Acute hyperkalemia, Hypertension, uncontrolled Anemia due to chronic kidney disease Qualifiers: Chronic kidney disease stage: on chronic dialysis Qualified Code(s): N18.6 - End stage renal disease Patient Disposition: Admitted As Inpatient Print Language: [place] Citizen
[2024-10-25 19:26] LABS: MANUAL DIFF FLAG NO
[2024-10-25] MEDS: Sodium Zirconium Cyclosilicate 5 GM POWD.PACK PO (19:30)
[2024-10-25] MEDS: levETIRAcetam 500 MG TABLET PO (19:31)
[2024-10-25] MEDS: Sodium Bicarbonate 8.4% 50 MEQ/50 ML SYRINGE IVPUSH (19:31)
[2024-10-25] MEDS: Calcium Gluconate/NaCl,Iso-Osm 2 GM/100 ML PLAST..BAG IV (19:31)
[2024-10-25] MEDS: hydrALAZINE HCl 20 MG/ML VIAL 10 MG IVPUSH (19:31)
[2024-10-25 19:35] LABS: Basophils Absolute Auto 0.1 X10*3/uL (0.0-0.2); Basophils Percent Auto 0.9 % (0-2); Eosinophils Absolute Auto 0.1 X10*3/uL (0.0-0.4); Hematocrit 21.4 % (37.0-47.0); Imm Gran Abs Auto 0.02 X10*3/uL (0.00-0.03); Imm Gran Pct Auto 0.3 % (0.0-0.4); Lymphocytes Absolute Auto 0.7 X10*3/uL (1.2-4.9); Lymphocytes Percent Auto 11.8 % (20-40); Mean Corpuscular HGB Conc 31.8 g/dl (31.0-35.0); Mean Corpuscular Hemoglobin 30.2 pg (27.0-33.0); Mean Corpuscular Volume 95.1 fL (80.0-98.0); Mean Platelet Volume 9.8 fL (9.4-12.3); Monocytes Absolute Auto 0.5 X10*3/uL (0.1-1.2); Monocytes Percent Auto 8.7 % (2-11); Neutrophils Absolute Auto 4.5 x10*3/uL (2.0-8.3); Neutrophils Percent Auto 77.3 % (45-73); Platelet Count 328 X10*3/uL (160-400); Red Blood Count 2.25 X10*6/uL (4.20-5.50); Red Cell Distribution Width 14.9 % (11.0-16.0); White Blood Count 5.8 X10*3/uL (4.8-10.8)
--- NOTE | 2024-10-25 19:41 | PC.NURSE ---
AFter administering the hydralazine and partial dose of NaHco3 patient began complaining of pain from the site. The PIV did not appear infiltrated. PIV removed and plan is for an EJ line at this time. Patient aware.
[2024-10-25 20:00] VITALS: BP 176/112; PULSE 91; RESP 12; TEMP 36.5; O2SAT 99
[2024-10-25 20:02] LABS: Hemoglobin 6.8 g/dl (12.0-16.0)
[2024-10-25] MEDS: ondansetron HCL 4 MG/2 ML VIAL IVPUSH (20:25)
[2024-10-25 20:28] LABS: Influenza A PCR NEGATIVE (Negative); Influenza B PCR NEGATIVE (Negative); Resp Syncy Virus RNA Qual PCR NEGATIVE (Negative); SARS COV2 PCR INHOUSE NEGATIVE (Negative)
[2024-10-25 21:17] LABS: Alanine Aminotransferase 93 U/L (0-31); Albumin Level 3.8 g/dL (3.5-5.0); Alkaline Phosphatase 178 U/L (39-117); Anion Gap 27 (12-20); Aspartate Amino Transferase 38 U/L (5-31); Bilirubin Direct 0.1 mg/dL (0.0-0.5); Bilirubin Total 0.5 mg/dL (0.0-1.0); Blood Urea Nitrogen 107 mg/dL (9-16); Calcium 9.9 mg/dL (8.4-10.2); Carbon Dioxide 18 mmol/L (22-29); Chloride 99 mmol/L (96-108); Creatinine Clr Calc Pharmacy 5.2; Estimated Glomerular Filt Rate 4; Glucose Random 75 mg/dL (60-115); Lipase 31 U/L (8-78); Magnesium 1.9 mg/dL (1.6-2.6); Potassium 8.9 mmol/L (3.3-5.1); Sodium 135 mmol/L (135-145); Total Protein 6.9 g/dL (6.5-8.0)
[2024-10-25 21:32] VITALS: PULSE 89; RESP 18; O2SAT 100
[2024-10-25] MEDS: Albuterol Sulfate (0.083%) 2.5 MG/3 ML VIAL.NEB 5 MG INHALE (21:32)
[2024-10-25] MEDS: LORazepam 1 MG TABLET PO (21:35)
[2024-10-25] MEDS: Insulin Regular, Human 100 UNIT/ML 10 ML VIAL IVPUSH (21:44)
[2024-10-25] MEDS: Dextrose 50 % 25 GM/50 ML SYRINGE IVPUSH (21:47)
--- NOTE | 2024-10-25 21:49 | PC.NURSE ---
Patient again stating there is something wrong with her U/S guided PIV. Patient allowed most of the dextrose bur refused the 2nd NaHco3. Patient is requesting the PIV be removed. Informed patient until another access is obtained unable to remove secondary to her significant hyperkalemia.
[2024-10-25 22:00] VITALS: BP 161/105; PULSE 90; RESP 14; TEMP 36.9; O2SAT 100
--- NOTE | 2024-10-25 23:42 | PC.NURSE ---
This copy writer assumed care of this Pt at 2300.
[2024-10-26] VITALS (21 sets, daily range): BP systolic 134–198; BP diastolic 71–114; PULSE 70–111; RESP 13–25; TEMP 36.7–37.1; O2SAT 90–100; BMI 20.2
[2024-10-26 00:21] LABS: Glucose, Whole Blood 54 mg/dL (60-115)
[2024-10-26] MEDS: Dextrose 50 % 25 GM/50 ML SYRINGE IVPUSH (00:45)
--- NOTE | 2024-10-26 00:46 | PC.NURSE ---
Pt A&Ox3. POC obtained 54. Upon inspection of IV Pt reports left arm pain, swelling noted from inner upper arm. Provider Anwer at bedside and placed new ultrasound guided IV to left AC. Dextrose IV given per SEP.
--- NOTE | 2024-10-26 01:12 | PC.NURSE ---
0040: Verbal report given to Veronica FERGUSON. 0105: pt transported over to ICU with setup technician.
[2024-10-26 01:16] LABS: Glucose, Whole Blood 134 mg/dL (60-115)
--- NOTE | 2024-10-26 01:18 | PM.CCHP ---
History of Present Illness Date of Service: 10/26/24 Attending physician on admission: Carlton Vasquez Chief Complaint: Hyperkalemia Ms. 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 who presented to the ER today with ? dizziness, nausea and vomiting. She reported a fall, hitting her head without LOC. She has had multiple admissions here at [facility] most recently 09/24/2024 to 09/30/2024 for? hyperkalemia, AMS, intoxication and again 10/13/2024 to 10/20/2024 with hyperkalemia, seizures, vomiting and hypertension. The patient was discharged home on Keppra?and vanco for C diff but?has not taken meds or had HD since the day of her last discharge. On arrival to the emergency room, the patient's blood pressure was? 174/105,? heart rate 76, temp 97.9,? O2 sat 99% on room air. Laboratory data significant for? RBC 2.25, hemoglobin 6.8, hematocrit 21.4, potassium 8.9, CO2 18, anion gap 27, BUN 107, creatinine 10.23, AST 38, ALT 93, alk-phos 178.? Imaging: Chest x-ray unremarkable. Head CT showed nothing acute, no acute hemorrhage ED course: ? the patient received 2 g calcium chloride, 1 amp sodium bicarb, [id number] mg, Lokelma 5 g, Keppra 500 mg, lorazepam 1 mg, Zofran 4 mg, insulin 5 units, dextrose 25 g,? albuterol. Dr. Dooley from nephrology was consulted. The patient was admitted to ICU for emergent dialysis. Review of Systems Constitutional: Constitutional: Reports as per HPI, Denies chills, Denies fever(s), Reports headache(s) and Denies weight loss Eyes: Eyes: Denies blurry vision and Denies photophobia ENT: Reports Normal hearing present, Reports dizziness, Reports headache(s), Denies nasal congestion and Denies sore throat Cardiovascular: Cardiovascular: Denies chest pain, Denies rapid heart rate and Denies dyspnea Respiratory: Respiratory: Denies cough and Denies dyspnea Gastrointestinal: Gastrointestinal: Denies abdominal pain, Denies coffee ground emesis, Denies dyspepsia, Reports diarrhea, Reports nausea and Reports vomiting Genitourinary: Genitourinary: Denies dysuria and Denies urinary urgency Musculoskeletal: Musculoskeletal: Denies myalgias, Denies muscle cramps and Denies muscle weakness Integumentary/Breasts: Skin/Breast: Denies lesions, Denies rash and Denies wounds Neurologic: Reports Normal hearing present, Denies confusion, Reports dizziness and Reports headache(s) Psychiatric: Psychiatric: Reports anxiety, Denies confusion and Denies depression Hematologic/Lymphatic: Hematologic/Lymphatic: Reports as per [facility] Past Medical History Medical History Diarrhea HTN (hypertension) Drug abuse ESRD (end stage renal disease) Social History Social History Housing: House Do you presently have visiting nurse or other home services: No Alcohol intake: unknown Comment: pt refusing bed alarm Patient Tobacco Use Status: Tobacco use Unknown Use of substances other than those prescribed or required for medical reasons: No Advance Directives: Yes Advance Directives on File: Yes Advance Directives Date on File: 09/25/24 Do you have a plan to hurt others: No Plan Recently lost weight without trying: No Nutrition Risks: No Nutritional Risk Patient : No service: No Meds Allergies Allergy/AdvReac Type Severity Reaction Status Date / Time No Known Allergies Allergy Verified 10/25/24 18:11 Active Medications: Current Medications Dextrose (Dextrose 50 % 25 Gm/50 Ml Syringe) 25 gm IVPUSH Q15M PRN PRN Reason: per Hypoglycemia Standing Ord. Last Admin: 10/26/24 00:45 Dose: 25 gm Lorazepam (Lorazepam 2 Mg/Ml Vial) 1 mg IVPUSH ONCE ONE Stop: 10/26/24 01:13 Home Medications ?Medication ?Instructions ?Recorded ?Confirmed ?Last Taken ?Type sevelamer carbonate 800 mg tablet 800 mg PO TIDWM 09/24/24 10/13/24 10/11/24 History sodium zirconium cyclosilicate 10 10 g PO SUTUTHSA 09/24/24 10/13/24 10/11/24 History gram oral powder packet (Lokelma) nifedipine 60 mg tablet,extended 60 mg PO BID 10/13/24 10/13/24 Unknown History release 24 hr Physical Exam Vital Signs: Vital Signs: Last Vital Signs Temp 98.1 F 10/26/24 01:10 Pulse 90 10/26/24 01:10 Resp 17 10/26/24 01:10 BP 173/104 H 10/26/24 01:10 Pulse Ox 98 10/26/24 01:10 O2 Del Method Room Air 10/26/24 01:10 BMI result Body Mass Index 20.2 Const: General: No confusion Orientation/consciousness: No confusion HEENT: Head: Yes normocephalic and Yes atraumatic General nose exam: Normal external nose present (Nares patent, septum midline, sinuses nontender bilaterally.) Mouth: Normal oral and palatal mucosa present (No thrush, tongue in midline, mucosa moist.) Throat: Yes other (No erythema, no exudate.) Eyes: Direct Ophthalmoscopy: No photophobia Neck: Neck: Yes supple (no thyromegaly, trachea midline.) Carotids: normal carotid upstroke Resp: Auscultation: clear to auscultation bilaterally (normal work of breathing, no accessory muscle use) Cardio: Jugular venous distension: no JVD Rate: regular rate Rhythm: regular rhythm Heart sounds: no gallops, no murmurs and no rubs Peripheral pulses: Peripheral pulses 2+ throughout GI: Palpation (GI): Soft to palpation (nondistended.) and nontender Neuro: General: No confusion Cranial nerves: Yes Normal hearing present Extrem: General: Yes full ROM, Yes capillary refill normal and Yes no clubbing, cyanosis or edema Psych: Affect: normal affect Attitude: cooperative Results Labs 10/26/24 05:30 10/26/24 05:31 Labs: Laboratory Results - last 24 hr 10/25/24 10/25/24 10/25/24 19:21 19:33 20:41 MCV 95.1 MCH 30.2 MCHC 31.8 RDW 14.9 Plt Count 328 MPV 9.8 Immature Gran % (Auto) 0.3 Neut % (Auto) 77.3 H Lymph % (Auto) 11.8 L [place] % (Auto) 8.7 Eos % (Auto) 1.0 Baso % (Auto) 0.9 Lymph # (Auto) 0.7 L [place] # (Auto) 0.5 Eos # (Auto) 0.1 Baso # (Auto) 0.1 Abs Immat Gran (auto) 0.02 Absolute Neuts (auto) 4.5 Absolute Nucleated RBC 0.000 Nucleated RBC % (auto) 0.0 Anion Gap 27 H Estim Creat Clear Calc 5.2 Estimated GFR 4 POC Glucose Random Glucose 75 Calcium 9.9 D Magnesium 1.9 Total Bilirubin 0.5 Direct Bilirubin 0.1 AST 38 H ALT 93 H Alkaline Phosphatase 178 H Total Protein 6.9 Albumin 3.8 Lipase 31 Influenza Type A (PCR) NEGATIVE Influenza Type B (PCR) NEGATIVE RSV RNA Qual (PCR) NEGATIVE SARS-CoV-2 RNA (RT-PCR) NEGATIVE Blood Type A Positive Antibody Screen NEGATIVE Crossmatch See Detail 10/26/24 10/26/24 00:14 01:12 MCV MCH MCHC RDW Plt Count MPV Immature Gran % (Auto) Neut % (Auto) Lymph % (Auto) [place] % (Auto) Eos % (Auto) Baso % (Auto) Lymph # (Auto) [place] # (Auto) Eos # (Auto) Baso # (Auto) Abs Immat Gran (auto) Absolute Neuts (auto) Absolute Nucleated RBC Nucleated RBC % (auto) Anion Gap Estim Creat Clear Calc Estimated GFR POC Glucose 54 L* 134 H Random Glucose Calcium Magnesium Total Bilirubin Direct Bilirubin AST ALT Alkaline Phosphatase Total Protein Albumin Lipase Influenza Type A (PCR) Influenza Type B (PCR) RSV RNA Qual (PCR) SARS-CoV-2 RNA (RT-PCR) Blood Type Antibody Screen Crossmatch Assessment and Plan (1) ESRD (end stage renal disease) on dialysis: Status: Acute (2) Acute hyperkalemia: Status: Acute (3) Hypertension, uncontrolled: Status: Acute (4) Anemia due to chronic kidney disease: Qualifiers: Chronic kidney disease stage: on chronic dialysis Qualified Code(s): N18.6 - End stage renal disease; D63.1 - Anemia in chronic kidney disease; Z99.2 - Dependence on renal dialysis Status: Acute (5) Medical non-compliance: Status: Acute (6) Clostridioides difficile diarrhea: Status: Acute (7) Norovirus: Status: Acute (8) Opioid use disorder: Status: Acute Plan 49-year-old lady with underlying polysubstance abuse, ESRD, anemia, HTN, seizures, and treatment noncompliance admitted with hyperkalemia requiring emergent dialysis. Neuro:? No acute issues. Cardiac:? Uncontrolled hypertension likely due to noncompliance. Continue home meds. Pulmonary:? No acute issues. Renal:? ESRD with poor compliance with hemodialysis.? Nephrology consulted for emergent hemodialysis. Endo:? No acute issues.? GI:? Nausea and vomiting. Zofran. Recent dx of C diff.? Continue p.o. vancomycin ID: ? No acute issues. Heme/Onc: Anemia of chronic disease. Transfuse for hemoglobin less than 7. Psych: Polysubstance abuse.? Continue methadone.? Addiction medicine consult placed. Miscellaneous:? No acute issues. Prophylaxis:? Pneumatic compression device, Heparin Diet:? Renal Critical care time spent:? 45 minutes
[2024-10-26] MEDS: LORazepam 2 MG/ML VIAL 1 MG IVPUSH (01:44)
[2024-10-26] MEDS: hydrALAZINE HCl 20 MG/ML VIAL 10 MG IVPUSH (04:21)
[2024-10-26] MEDS: vancomycin HCL 125 MG CAPSULE PO ×3 (04:21→18:10)
[2024-10-26] MEDS: Melatonin 3 MG TABLET PO (04:41)
[2024-10-26 05:39] LABS: Venous Blood Gas Refer to POC result
[2024-10-26 05:39] LABS: VBG Base Excess 7.3 mmol/L; VBG HCO3 27 mmol/L (22-26); VBG pCO2 25 mmHg; VBG pH 7.63 (7.32-7.43); VBG pO2 173 mmHg
[2024-10-26 06:04] LABS: Basophils Absolute Auto 0.1 X10*3/uL (0.0-0.2); Eosinophils Percent Auto 0.6 % (0-4); Hematocrit 26.5 % (37.0-47.0); Hemoglobin 8.9 g/dl (12.0-16.0); Imm Gran Abs Auto 0.02 X10*3/uL (0.00-0.03); Imm Gran Pct Auto 0.3 % (0.0-0.4); Lymphocytes Absolute Auto 0.8 X10*3/uL (1.2-4.9); Lymphocytes Percent Auto 11.7 % (20-40); Mean Corpuscular HGB Conc 33.6 g/dl (31.0-35.0); Mean Corpuscular Hemoglobin 30.6 pg (27.0-33.0); Mean Corpuscular Volume 91.1 fL (80.0-98.0); Mean Platelet Volume 10.2 fL (9.4-12.3); Monocytes Absolute Auto 0.7 X10*3/uL (0.1-1.2); Monocytes Percent Auto 9.9 % (2-11); Neutrophils Absolute Auto 5.5 x10*3/uL (2.0-8.3); Neutrophils Percent Auto 76.5 % (45-73); Red Blood Count 2.91 X10*6/uL (4.20-5.50)
[2024-10-26 06:05] LABS: Platelet Count 360 X10*3/uL (160-400); White Blood Count 7.2 X10*3/uL (4.8-10.8)
[2024-10-26] MEDS: Acetaminophen 325 MG TABLET 650 MG PO (06:09)
--- NOTE | 2024-10-26 06:11 | PC.ADMIT ---
Pt admitted to ICU from ED at approx 0100 for emergent dialysis. Upon initial assessment- pt A&Ox4, calm/cooperative. C/o H/A, given APAP 650 mg PO x1. NSR/ST on tele, HR 90-100s. SBP 170-190s, hydralazine 10 mg IV x1 given with good effect. Saturating well on room air. C/o nausea and dry heaving but tolerating small amount of PO intake. Per dialysis nurse, approx 3.1L removed but pt asking for session to end early d/t feeling unwell , CLIN APPLICATION SPECIALIST aware. No void or BM since 10/25 per pt. Skin overall intact- abrasion/bruising to face s/p fall at home. Pt refused AM labs, educated on importance and verbally understands, CLIN APPLICATION SPECIALIST aware. Pt able to reposition self in bed, bed locked in lowest position, alarm on. See EMR/flowsheet for further details.
[2024-10-26 06:16] LABS: Albumin Level 3.5 g/dL (3.5-5.0); Anion Gap 21 (12-20); Blood Urea Nitrogen 49 mg/dL (9-16); Calcium 9.4 mg/dL (8.4-10.2); Carbon Dioxide 22 mmol/L (22-29); Chloride 100 mmol/L (96-108); Creatinine Clr Calc Pharmacy 9.2; Estimated Glomerular Filt Rate 8; Glucose Random 79 mg/dL (60-115); Magnesium 1.8 mg/dL (1.6-2.6); Phosphorus 5.8 mg/dL (2.7-4.5); Potassium 4.9 mmol/L (3.3-5.1); Sodium 138 mmol/L (135-145)
[2024-10-26] MEDS: ondansetron HCL 4 MG/2 ML VIAL IVPUSH (06:26)
[2024-10-26] MEDS: 0.9 % Sodium Chloride Flush 3 ML SYRINGE IVFLUSH ×3 (07:27→23:27)
[2024-10-26] MEDS: methADONE HCl 20 MG/2 ML ORAL.CONC 45 MG PO (07:27)
--- NOTE | 2024-10-26 09:47 | MHC.CM.PN ---
Pt admitted to ICU w/lab abnormalities in the setting of missed HD appointment. Pt resides w/friend, is independent w/care needs: attends HD at [facility] in [place] on , , and has [facility] for Methadone needs. Pt states her mother or friend can transport to home. No additional services expected.
[2024-10-26] MEDS: Metoclopramide HCl 10 MG/2 ML VIAL IVPUSH (09:57)
[2024-10-26] MEDS: hydrALAZINE HCl 25 MG TABLET PO ×3 (11:03→21:29)
[2024-10-26] MEDS: NIFEdipine ER 60 MG TAB.ER.24 PO (11:03)
[2024-10-26] MEDS: levETIRAcetam 500 MG TABLET PO ×2 (11:03→21:29)
[2024-10-26] MEDS: carvediloL 25 MG TABLET PO (11:04)
--- NOTE | 2024-10-26 13:20 | PM.EVENT ---
Event Note Date of Service: 10/26/24 Event Note: 49F PMH ESRD non compliant presented with missed HD and severe hypekalemia, admitted to icu for emergent HD, now potassium normalized after HD, downgraded to medical floor Time Spent With Patient Time: Total time managing care of this patient today ____ minutes.
--- NOTE | 2024-10-26 17:59 | PM.CNNEP ---
History of Present Illness Reason for Consult Consult date: 10/26/24 Chief Complaint Chief complaint: Hyperkalemia, Hypertension, Anemia, Fall History of Present Illness Narrative: RTANE CONSULTED for management of HD in setting of ESRD with Hyperkalemia H/O ESRD and med noncompliance with freq Hosp Emergent HD this am for hyperK Review of Systems Review of Systems Constitutional : No Weight loss, No Fever, No Chills ENT/Mouth : No sore throat, No Rhinorrhea Eyes: No Swelling, No Redness Cardiovascular : No Chest Pain, No SOB, NoEdema Respiratory : No Cough, No Sputum, No Wheezing Gastrointestinal : Positive Nausea, Positive Vomiting, positive Diarrhea, no abdominal Pain, No Hematochezia, No Melena Genitourinary : No Dysuria, No Urinary Frequency, No Hematuria, No Urgency Musculoskeletal : No joint pain, No Myalgias, No Joint Swelling Skin : No Skin Lesions, No rash Neuro : No Weakness, No Numbness, pos Dizziness, No Headache Psych : No Anxiety/Panic, No Depression All other systems reviewed and are negative. Constitutional: Reports as per HPI, Denies chills, Denies fever(s), Reports headache(s) and Denies weight loss Eyes: Denies blurry vision and Denies photophobia Reports Normal hearing present, Reports dizziness, Reports headache(s), Denies nasal congestion and Denies sore throat Cardiovascular: Denies chest pain, Denies rapid heart rate and Denies dyspnea Respiratory: Denies cough and Denies dyspnea Gastrointestinal: Denies abdominal pain, Denies coffee ground emesis, Denies dyspepsia, Reports diarrhea, Reports nausea and Reports vomiting Musculoskeletal: Denies myalgias, Denies muscle cramps and Denies muscle weakness Skin/Breast: Denies lesions, Denies rash and Denies wounds Reports Normal hearing present, Denies confusion, Reports dizziness and Reports headache(s) Psychiatric: Reports anxiety, Denies confusion and Denies depression Hematologic/Lymphatic: Reports as per HPI PMF Past Medical History Medical History Diarrhea HTN (hypertension) Drug abuse ESRD (end stage renal disease) Social History Social History Housing: House Do you presently have visiting nurse or other home services: No Alcohol intake: unknown Comment: pt refusing bed alarm Patient Tobacco Use Status: Tobacco use Unknown Use of substances other than those prescribed or required for medical reasons: No Currently Displaying Signs/Symptoms of Drug Intoxication Withdrawal: Yes Advance Directives: Yes Advance Directives on File: Yes Advance Directives Date on File: 09/25/24 Do you have a plan to hurt others: No Plan Recently lost weight without trying: No Nutrition Risks: No Nutritional Risk Patient : No service: No Meds Allergies Allergy/AdvReac Type Severity Reaction Status Date / Time No Known Allergies Allergy Verified 10/25/24 18:11 Active Medications: Current Medications Carvedilol (Carvedilol 25 Mg Tablet) 25 mg PO BID [facility]; Protocol Last Admin: 10/26/24 11:04 Dose: 25 mg Dextrose (Dextrose 50 % 25 Gm/50 Ml Syringe) 25 gm IVPUSH Q15M PRN PRN Reason: per Hypoglycemia Standing Ord. Last Admin: 10/26/24 00:45 Dose: 25 gm Hydralazine HCl (Hydralazine Hcl 25 Mg Tablet) 25 mg PO TID [facility]; Protocol Last Admin: 10/26/24 15:17 Dose: 25 mg Levetiracetam (Levetiracetam 500 Mg Tablet) 500 mg PO BID [facility] Last Admin: 10/26/24 11:03 Dose: 500 mg Methadone HCl (Methadone Hcl 20 Mg/2 Ml Oral.Conc) 45 mg PO DAILY@0800 [facility] Last Admin: 10/26/24 07:27 Dose: 45 mg Nifedipine (Nifedipine Er 60 Mg Tab.Er.24) 60 mg PO BID [facility]; Protocol Last Admin: 10/26/24 11:03 Dose: 60 mg Sodium Chloride (0.9 % Sodium Chloride Flush 3 Ml Syringe) 3 ml IVFLUSH QSHIFT [facility] Last Admin: 10/26/24 15:16 Dose: 3 ml Vancomycin HCl (Vancomycin Hcl 125 Mg Capsule) 125 mg PO Q6H [facility] Last Admin: 10/26/24 13:31 Dose: 125 mg Home Medications ?Medication ?Instructions ?Recorded ?Confirmed ?Last Taken ?Type sevelamer carbonate 800 mg tablet 800 mg PO TIDWM 09/24/24 10/13/24 10/11/24 History sodium zirconium cyclosilicate 10 10 g PO SUTUTHSA 03/01/25 03/20/25 03/18/25 History gram oral powder packet (Lokelma) nifedipine 60 mg tablet,extended 60 mg PO BID 10/13/24 10/13/24 Unknown History release 24 hr Physical Exam Vital Signs: Last Vital Signs Temp 98.8 F 10/26/24 15:02 Pulse 82 10/26/24 15:02 Resp 16 10/26/24 15:02 BP 150/86 H 10/26/24 15:17 Pulse Ox 97 10/26/24 15:02 O2 Del Method Room Air 10/26/24 15:02 BMI result Body Mass Index 20.2 Const General: No confusion Orientation/consciousness: No confusion HEENT Head: Yes normocephalic and Yes atraumatic General nose exam: Normal external nose present (Nares patent, septum midline, sinuses nontender bilaterally.) Mouth: Normal oral and palatal mucosa present (No thrush, tongue in midline, mucosa moist.) Throat: Yes other (No erythema, no exudate.) Eyes Direct Ophthalmoscopy: No photophobia Neck Neck: Yes supple (no thyromegaly, trachea midline.) Carotids: normal carotid upstroke Resp Auscultation: clear to auscultation bilaterally (normal work of breathing, no accessory muscle use) Cardio Jugular venous distension: no JVD Rate: regular rate Rhythm: regular rhythm Heart sounds: no gallops, no murmurs and no rubs Peripheral pulses: Peripheral pulses 2+ throughout GI Palpation (GI): Soft to palpation (nondistended.) and nontender Neuro General: No confusion Cranial nerves: Yes Normal hearing present Extrem General: Yes full ROM, Yes capillary refill normal and Yes no clubbing, cyanosis or edema Psych Affect: normal affect Attitude: cooperative Results Lab Results 10/26/24 05:30 10/26/24 05:31 Lab results: Chemistry 10/25/24 10/26/24 20:41 05:31 Sodium 135 138 Potassium 8.9 H* D 4.9 D Carbon Dioxide 18 L 22 BUN 107 H 49 H Creatinine 10.23 H* 5.80 H* Calcium 9.9 D 9.4 Phosphorus 5.8 H Hematology 10/25/24 10/26/24 19:21 05:30 WBC 5.8 7.2 Hgb 6.8 L* 8.9 L D Plt Count 328 360 Assessment and Plan (1) ESRD (end stage renal disease) on dialysis: Status: Acute (2) Acute hyperkalemia: Status: Acute (3) Hypertension, uncontrolled: Status: Acute (4) Anemia due to chronic kidney disease: Qualifiers: Chronic kidney disease stage: on chronic dialysis Qualified Code(s): N18.6 - End stage renal disease; D63.1 - Anemia in chronic kidney disease; Z99.2 - Dependence on renal dialysis Status: Acute (5) Medical non-compliance: Status: Acute (6) Clostridioides difficile diarrhea: Status: Acute (7) Norovirus: Status: Acute (8) Opioid use disorder: Status: Acute Plan 49-year-old lady with underlying polysubstance abuse, ESRD, anemia, HTN, seizures, and treatment noncompliance admitted with hyperkalemia requiring emergent dialysis. 1. ESRD: usu HD 3x/wk at [facility] but poorly complaint 2. HyperK: acute Hd on 1 K bath; need to watch for rebound Lokelma on non-HD days as needed 3. Anemia: decr in HB; xfuse Hb > 7.0 4. AMS: multifact PLAN: repeat K this PM after HD to [facility] for rebound; possible HD again tomorrow Procedures Date of Service Date of Service: 10/26/24
[2024-10-26 20:09] LABS: Anion Gap 20 (12-20); Carbon Dioxide 24 mmol/L (22-29); Chloride 98 mmol/L (96-108); Potassium 6.5 mmol/L (3.3-5.1); Sodium 135 mmol/L (135-145)
--- NOTE | 2024-10-26 20:09 | PM.EVENT ---
Event Note Date of Service: 10/26/24 Event Note: Nurse reported hyperkalemia. Will give temporizing measures and Lokelma. Closely monitor Time Spent With Patient Time: Total time managing care of this patient today ____ minutes.
--- NOTE | 2024-10-26 20:28 | PHA.MEDREC ---
Addendum entered by Jm Gomez 10/27/24 09:45: reviewed Addendum entered by Gertrude Jarvis 10/27/24 09:36: Patient states she takes Methadone 50 mg daily. Addendum entered by Gertrude Jarvis 10/27/24 09:19: Spoke to patient to clarify medications. Patient had a discharge packet from [facility] dated 10/20/24 with her. Patient states what ever is on the packet is what she takes. When asked about the dose for Carvedilol 6.25mg bid last filled ,however discharge packet has 25 mg. Patient said I don't know ,I don't remember). Patient says she doesn't know her dose for Nifedapine. I also asked if she was still taking Keppra 500 mg BID, Patient states she is and she fills all her medications at [facility] pharmacy. Called [facility] pharmacy for a med list and they confirmed Carvedilol 6.25 mg BID, Nifedipine 30 mg daily, Sevelamer Carb 800 mg TID, Lokeima 10 mg on Thursday ,Thursday,, and Saturdays. [facility] pharmacy states patient has never filled Keppra with them. Patient is new to there pharmacy. Patient transfer from [facility] pharmacy. Called [facility] [phone] pharmacy and they where able to confirm patient only filled Carvedilol 6.25 mg on 07/31/24. [facility] says they have never filled Keppra 500 mg. Original Note: Pharmacy Consult ? Medication Reconciliation Pharmacy has completed the medication reconciliation. Tried to speak with patient multiple times tonight with no success until about 1620 when I went back and was able to speak to the patient about some of her medications until she started dozing off again and requested we come back in the Am. The patient confirmed her Carvedilol and was able to confirm she is now taking 6.25mg tabs twice a day instead of the 25mg twice a day. She had a hard time remembering the dose for the Nifedipine but was able to confirm she takes 1 tablet daily of that and not twice a day; I confirmed the 30mg tab once a day. I called [facility] to confirm see if they have recent fills from the last month and they confirmed right now they have the Vancomycin ready for picker but states it is not ran through insurance since [facility] does not have that info. [facility] also has Hydralazine ready from 10/20 and states they have Nifedipine 60mg and Carvedilol 25mg tabs on hold at their facility and no claims for levetiracetam being sent to their facility. Will have Am team follow up with patient in the morning for Chris and last time she took her medications.
[2024-10-26] MEDS: Sodium Zirconium Cyclosilicate 10 GM POWD.PACK PO (21:29)
[2024-10-26] MEDS: Insulin Regular, Human 100 UNIT/ML 10 ML VIAL IVPUSH (21:29)
[2024-10-26] MEDS: Calcium Gluconate/NaCl,Iso-Osm 2 GM/100 ML PLAST..BAG IV (21:29)
[2024-10-26] MEDS: carvediloL 6.25 MG TABLET PO (21:30)
[2024-10-27] MEDS: Melatonin 3 MG TABLET 6 MG PO (00:03)
[2024-10-27] MEDS: vancomycin HCL 125 MG CAPSULE PO ×3 (00:03→18:45)
[2024-10-27] MEDS: Sodium Zirconium Cyclosilicate 10 GM POWD.PACK PO (01:18)
[2024-10-27 03:33] VITALS: BP 158/80; PULSE 80; RESP 18; TEMP 37.2; O2SAT 97
[2024-10-27] MEDS: LORazepam 1 MG TABLET PO (03:55)
[2024-10-27 07:22] VITALS: BP 188/112; PULSE 80; RESP 14; TEMP 36.7; O2SAT 95
[2024-10-27] MEDS: methADONE HCl 20 MG/2 ML ORAL.CONC 45 MG PO (08:45)
[2024-10-27] MEDS: carvediloL 12.5 MG TABLET PO ×2 (08:50→21:09)
[2024-10-27] MEDS: NIFEdipine ER 30 MG TAB.ER.24 PO (08:50)
[2024-10-27] MEDS: 0.9 % Sodium Chloride Flush 3 ML SYRINGE IVFLUSH ×3 (09:37→21:15)
--- NOTE | 2024-10-27 09:38 | PC.NURSE ---
patient with C/O not being able to breathe O2 sat is 97-98 percent on RA, lungs are clear throughout all lara. She was in the doorway to her room to get someone attention
[2024-10-27] MEDS: hydrALAZINE HCl 25 MG TABLET PO ×3 (10:26→21:09)
[2024-10-27] MEDS: levETIRAcetam 500 MG TABLET PO ×2 (10:26→21:09)
--- NOTE | 2024-10-27 10:41 | PC.NURSE ---
patient off unit for dialysis
--- NOTE | 2024-10-27 13:55 | P.PNNP_ITS ---
Subjective Subjective Date of Service: 10/27/24 Principal diagnosis: seen and examined on HD Physical Exam 2 Vital Signs: Vital Signs: Last Vital Signs Temp 98.1 F 10/27/24 07:22 Pulse 80 10/27/24 07:22 Resp 14 10/27/24 07:22 BP 188/112 H 10/27/24 07:22 Pulse Ox 95 10/27/24 07:22 O2 Del Method Room Air 10/27/24 07:22 BMI result Body Mass Index 20.2 Const: General: no acute distress Neck: Neck: Yes supple Resp: Auscultation: diminished lung sounds Cardio: Heart sounds: S1 normal heart sound present and S2 normal heart sound present GI: Palpation (GI): Soft to palpation and nontender Extrem: General: Yes pedal edema Objective Data Labs 10/26/24 05:30 10/26/24 19:23 Labs: Laboratory Results - last 24 hr 10/26/24 19:23 Sodium 135 Potassium 6.5 H* D Chloride 98 Carbon Dioxide 24 Anion Gap 20 Procedures Date of Service Date of Service: 10/27/24 Assessment & Plan Assessment and plan (1) ESRD (end stage renal disease): Status: Acute (2) Hyperkalemia: Status: Acute (3) Anemia: Status: Acute Plan HD today optimize volume status P binder LEONEL renal diet Time Spent With Patient Time: Total time managing care of this patient today ____ minutes.
--- NOTE | 2024-10-27 14:03 | HO.PM.IMPN ---
Subjective Subjective Date of Service: 10/27/24 Interval History: Seen and evaluated this morning feels little better Still on O2 BP elevated denies fever or chills Review of Systems Review of Systems: Yes all other systems are reviewed and are negative Physical Exam Vital Signs: Vital Signs: Last Vital Signs Temp 98.1 F 10/27/24 07:22 Pulse 80 10/27/24 07:22 Resp 14 10/27/24 07:22 BP 188/112 H 10/27/24 07:22 Pulse Ox 95 10/27/24 07:22 O2 Del Method Room Air 10/27/24 07:22 BMI result Body Mass Index 20.2 Const: Other: Constitutional : Awake, interactive, not in distress Neck : Normal inspection, Supple Cardiovascular : RRR, no JVP, no lower extremity edema Respiratory : good bilateral air entry, no crackles, wheezes or rhonchi Gastrointestinal: soft, lax, Normal bowel sounds, Non tender Skin : Warm, Dry, bruises , Dialysis cath chest wall clean Neurological : Alert & oriented x3, No focal deficit Objective Data Active Medications Carvedilol (Carvedilol 12.5 Mg Tablet) 12.5 mg PO BID [facility]; Protocol Last Admin: 10/27/24 08:50 Dose: 12.5 mg Documented By: ROGELIO Dextrose (Dextrose 50 % 25 Gm/50 Ml Syringe) 25 gm IVPUSH Q15M PRN PRN Reason: per Hypoglycemia Standing Ord. Last Admin: 10/26/24 00:45 Dose: 25 gm Documented By: SARAH Hydralazine HCl (Hydralazine Hcl 25 Mg Tablet) 25 mg PO TID [facility]; Protocol Last Admin: 10/27/24 10:26 Dose: 25 mg Documented By: ROGELIO Levetiracetam (Levetiracetam 500 Mg Tablet) 500 mg PO BID [facility] Last Admin: 10/27/24 10:26 Dose: 500 mg Documented By: ROGELIO Melatonin (Melatonin 3 Mg Tablet) 6 mg PO BEDTIME PRN PRN Reason: Insomnia Last Admin: 10/27/24 00:03 Dose: 6 mg Documented By: YASHIRA Methadone HCl (Methadone Hcl 20 Mg/2 Ml Oral.Conc) 45 mg PO DAILY@0800 [facility] Last Admin: 10/27/24 08:45 Dose: 45 mg Documented By: ROGELIO Co-signed By: AMBER Nifedipine (Nifedipine Er 30 Mg Tab.Er.24) 30 mg PO DAILY [facility] Last Admin: 10/27/24 08:50 Dose: 30 mg Documented By: ROGELIO Sevelamer Carbonate (Sevelamer Carbonate Tablet 800 Mg Tablet) 800 mg PO TIDWM [facility] Sodium Chloride (0.9 % Sodium Chloride Flush 3 Ml Syringe) 3 ml IVFLUSH QSHIFT [facility] Last Admin: 10/27/24 09:37 Dose: 3 ml Documented By: ROGELIO Sodium Zirconium Cyclosilicate (Sodium Zirconium Cyclosilicate 10 Gm Powd.Pack) 10 gm PO SuTuThSa@0900 [facility] Last Admin: 10/27/24 11:54 Dose: Not Given Documented By: ROGELIO Non-Admin Reason: Off unit: Dialysis Vancomycin HCl (Vancomycin Hcl 125 Mg Capsule) 125 mg PO Q6H [facility] Last Admin: 10/27/24 10:26 Dose: 125 mg Documented By: ROGELIO Labs 10/26/24 05:30 10/26/24 19:23 Labs: Laboratory Results - last 24 hr 10/26/24 19:23 Anion Gap 20 Assessment and Plan (1) Hypertension, uncontrolled: Status: Acute (2) Acute hyperkalemia: Status: Acute (3) Medical non-compliance: Status: Acute (4) ESRD (end stage renal disease) on dialysis: Status: Acute Plan 49F PMH ESRD non compliant presented with missed HD and severe hypekalemia, admitted to icu for emergent HD, potassium improved after HD. Uncontrolled hypertension likely due to noncompliance. Continue home meds and increase Carvedilol dosage ESRD poor compliance with hemodialysis Nephrology will do 2nd treatment today Nausea and vomiting. Zofran. Seizure disorder on Keppra Recent dx of C diff.? Continue p.o. vancomycin Anemia of chronic disease. Transfuse for hemoglobin less than 7. Polysubstance abuse Continue methadone Addiction medicine consult placed. DVT PPx Heparin The patient will need overnight stay for need of dialysis and BP monitoring Quality Stroke Does the patient have a stroke diagnosis?: No VTE Prior VTE?: No VTE Risk Level:: Medical - moderate - high VTE Device Contraindication: N/A - Device Ordered VTE Drug Contraindication: Treatment Not Indicated
[2024-10-27 16:00] VITALS: BP 147/69; PULSE 91; RESP 18; TEMP 35.9; O2SAT 94
[2024-10-27] MEDS: Sevelamer Carbonate Tablet 800 MG TABLET PO (16:13)
--- NOTE | 2024-10-27 17:04 | HO.ADDICT_ITS ---
History of Present Illness Date of Service: 10/27/2024 Chief Complaint: Hyperkalemia, Hypertension, Anemia, Fall Reason for Consult: OUD Sources of Information: patient interviewed and chart reviewed HPI Narrative: Patient is a 49 year old female medically with history of ESRD on HD and OUD. Medically admitted with hyperkalemia secondary to missed HD. Patient known to this manual writer via recent medical admission for similar presentation. At that time, methadone dose was titrated from 30mg to 45mg. Patient seen in room 487. She is laying in bed, eyes closed, but answering questions. She is requesting to have methadone dose increased again, reporting ongoing cravings and has not been to [facility] yet to see provider since discharged from here last. Dose currently at 45mg Denies withdrawal sx, but overall not feeling well. Appearing tired Patient reported to art glass designer that she has been using approx a bundle of fentanyl daily and feels she woudl be using less if dose was increased back to 50mg where she had previously been Labs and EKG reviewed Medical Evaluation Reviewed: Yes Review of Systems Constitutional: Reports as per HPI, Reports difficulty sleeping, Reports malaise and Reports poor appetite Psychiatric: Reports anxiety Diagnostics Vital Signs (24Hr): Vital Signs - 24 hr 10/26/24 19:18 10/26/24 23:16 10/27/24 03:33 Temperature 98.6 F 98.3 F 99 F Pulse Rate 86 84 80 Respiratory Rate 18 18 18 Blood Pressure 134/81 167/88 H 158/80 H Pulse Oximetry 97 95 97 Oxygen Delivery Method Room Air Room Air Room Air 10/27/24 07:22 10/27/24 16:00 Temperature 98.1 F 96.7 F L Pulse Rate 80 91 Respiratory Rate 14 18 Blood Pressure 188/112 H 147/69 H Pulse Oximetry 95 94 Oxygen Delivery Method Room Air Room Air BMI result Body Mass Index 20.2 Labs 10/26/24 05:30 10/26/24 19:23 Labs: Laboratory Results - last 48 hr 10/25/24 10/25/24 10/25/24 19:21 19:33 20:41 WBC 5.8 RBC 2.25 L Hgb 6.8 L* Hct 21.4 L MCV 95.1 MCH 30.2 MCHC 31.8 RDW 14.9 Plt Count 328 MPV 9.8 Immature Gran % (Auto) 0.3 Neut % (Auto) 77.3 H Lymph % (Auto) 11.8 L [place] % (Auto) 8.7 Eos % (Auto) 1.0 Baso % (Auto) 0.9 Lymph # (Auto) 0.7 L [place] # (Auto) 0.5 Eos # (Auto) 0.1 Baso # (Auto) 0.1 Abs Immat Gran (auto) 0.02 Absolute Neuts (auto) 4.5 Absolute Nucleated RBC 0.000 Nucleated RBC % (auto) 0.0 VBG pH VBG pCO2 VBG pO2 VBG HCO3 VBG O2 Saturation VBG Base Excess Sodium 135 Potassium 8.9 H* D Chloride 99 Carbon Dioxide 18 L Anion Gap 27 H BUN 107 H Creatinine 10.23 H* Estim Creat Clear Calc 5.2 Estimated GFR 4 POC Glucose Random Glucose 75 Calcium 9.9 D Phosphorus Magnesium 1.9 Total Bilirubin 0.5 Direct Bilirubin 0.1 AST 38 H ALT 93 H Alkaline Phosphatase 178 H Total Protein 6.9 Albumin 3.8 Lipase 31 Influenza Type A (PCR) NEGATIVE Influenza Type B (PCR) NEGATIVE RSV RNA Qual (PCR) NEGATIVE SARS-CoV-2 RNA (RT-PCR) NEGATIVE Blood Type A Positive Antibody Screen NEGATIVE Crossmatch See Detail 10/26/24 10/26/24 10/26/24 00:14 01:12 05:30 WBC 7.2 RBC 2.91 L D Hgb 8.9 L D Hct 26.5 L D MCV 91.1 MCH 30.6 MCHC 33.6 RDW 15.0 Plt Count 360 MPV 10.2 Immature Gran % (Auto) 0.3 Neut % (Auto) 76.5 H Lymph % (Auto) 11.7 L [place] % (Auto) 9.9 Eos % (Auto) 0.6 Baso % (Auto) 1.0 Lymph # (Auto) 0.8 L [place] # (Auto) 0.7 Eos # (Auto) 0.0 Baso # (Auto) 0.1 Abs Immat Gran (auto) 0.02 Absolute Neuts (auto) 5.5 Absolute Nucleated RBC 0.000 Nucleated RBC % (auto) 0.0 VBG pH VBG pCO2 VBG pO2 VBG HCO3 VBG O2 Saturation VBG Base Excess Sodium Potassium Chloride Carbon Dioxide Anion Gap BUN Creatinine Estim Creat Clear Calc Estimated GFR POC Glucose 54 L* 134 H Random Glucose Calcium Phosphorus Magnesium Total Bilirubin Direct Bilirubin AST ALT Alkaline Phosphatase Total Protein Albumin Lipase Influenza Type A (PCR) Influenza Type B (PCR) RSV RNA Qual (PCR) SARS-CoV-2 RNA (RT-PCR) Blood Type Antibody Screen Crossmatch 10/26/24 10/26/24 10/26/24 05:31 05:35 19:23 WBC RBC Hgb Hct MCV MCH MCHC RDW Plt Count MPV Immature Gran % (Auto) Neut % (Auto) Lymph % (Auto) [place] % (Auto) Eos % (Auto) Baso % (Auto) Lymph # (Auto) [place] # (Auto) Eos # (Auto) Baso # (Auto) Abs Immat Gran (auto) Absolute Neuts (auto) Absolute Nucleated RBC Nucleated RBC % (auto) VBG pH 7.63 H* VBG pCO2 25 VBG pO2 173 VBG HCO3 27 H VBG O2 Saturation 100.0 VBG Base Excess 7.3 Sodium 138 135 Potassium 4.9 D 6.5 H* D Chloride 100 98 Carbon Dioxide 22 24 Anion Gap 21 H 20 BUN 49 H Creatinine 5.80 H* Estim Creat Clear Calc 9.2 Estimated GFR 8 POC Glucose Random Glucose 79 Calcium 9.4 Phosphorus 5.8 H Magnesium 1.8 Total Bilirubin Direct Bilirubin AST ALT Alkaline Phosphatase Total Protein Albumin 3.5 Lipase Influenza Type A (PCR) Influenza Type B (PCR) RSV RNA Qual (PCR) SARS-CoV-2 RNA (RT-PCR) Blood Type Antibody Screen Crossmatch Mental Status Exam Mental Status Exam Patient Appearance: Appropriate Level of Consciousness: Awake (tired ) and Appropriate Patient Behavior: Appropriate Mood Description: Calm Affect Description: Calm Speech Pattern: Clear Thought Content: positive for Intact Judgement: Good Medications Medications Current Medications Carvedilol (Carvedilol 12.5 Mg Tablet) 12.5 mg PO BID [facility]; Protocol Last Admin: 10/27/24 08:50 Dose: 12.5 mg Dextrose (Dextrose 50 % 25 Gm/50 Ml Syringe) 25 gm IVPUSH Q15M PRN PRN Reason: per Hypoglycemia Standing Ord. Last Admin: 10/26/24 00:45 Dose: 25 gm Hydralazine HCl (Hydralazine Hcl 25 Mg Tablet) 25 mg PO TID [facility]; Protocol Last Admin: 10/27/24 16:13 Dose: 25 mg Levetiracetam (Levetiracetam 500 Mg Tablet) 500 mg PO BID [facility] Last Admin: 10/27/24 10:26 Dose: 500 mg Melatonin (Melatonin 3 Mg Tablet) 6 mg PO BEDTIME PRN PRN Reason: Insomnia Last Admin: 10/27/24 00:03 Dose: 6 mg Methadone HCl (Methadone Hcl 20 Mg/2 Ml Oral.Conc) 50 mg PO DAILY@0800 [facility] Nifedipine (Nifedipine Er 30 Mg Tab.Er.24) 30 mg PO DAILY [facility] Last Admin: 10/27/24 08:50 Dose: 30 mg Sevelamer Carbonate (Sevelamer Carbonate Tablet 800 Mg Tablet) 800 mg PO TIDWM [facility] Last Admin: 10/27/24 16:13 Dose: 800 mg Sodium Chloride (0.9 % Sodium Chloride Flush 3 Ml Syringe) 3 ml IVFLUSH QSHIFT [facility] Last Admin: 10/27/24 09:37 Dose: 3 ml Sodium Zirconium Cyclosilicate (Sodium Zirconium Cyclosilicate 10 Gm Powd.Pack) 10 gm PO SuTuThSa@0900 [facility] Last Admin: 10/27/24 11:54 Dose: Not Given Vancomycin HCl (Vancomycin Hcl 125 Mg Capsule) 125 mg PO Q6H [facility] Last Admin: 10/27/24 10:26 Dose: 125 mg Allergies Allergies Allergy/AdvReac Type Severity Reaction Status Date / Time No Known Allergies Allergy Verified 10/25/24 18:11 Assessment & Plan Assessment & Plan (1) Opioid use disorder: Status: Acute Code(s): F11.90 - Opioid use, unspecified, uncomplicated Assessment and Plan: * methadone increased to 50mg in AM * will continue to follow Total time managing care of this patient today _25___ minutes. PMFSH Past Medical History Medical History Diarrhea HTN (hypertension) Drug abuse ESRD (end stage renal disease) Social History Social History Housing: House Do you presently have visiting nurse or other home services: No Alcohol intake: unknown Comment: pt refusing bed alarm Patient Tobacco Use Status: Tobacco use Unknown Use of substances other than those prescribed or required for medical reasons: No Currently Displaying Signs/Symptoms of Drug Intoxication Withdrawal: No Advance Directives: Yes Advance Directives on File: Yes Advance Directives Date on File: 09/25/24 Do you have a plan to hurt others: No Plan Recently lost weight without trying: No Nutrition Risks: No Nutritional Risk Patient : No service: No
[2024-10-27 19:22] VITALS: BP 167/83; PULSE 92; RESP 18; TEMP 37.7; O2SAT 94
[2024-10-27 23:09] VITALS: BP 140/63; PULSE 88; RESP 18; TEMP 37.2; O2SAT 92
[2024-10-28] MEDS: vancomycin HCL 125 MG CAPSULE PO ×3 (00:05→15:12)
[2024-10-28 03:24] VITALS: BP 168/80; PULSE 84; RESP 18; TEMP 37.2; O2SAT 94
[2024-10-28] MEDS: ondansetron HCL 4 MG/2 ML VIAL IVPUSH (05:05)
--- NOTE | 2024-10-28 05:31 | PC.NURSE ---
Pt self removed tele monitor, refusing to put back on at this time and states I will put it back on in a few hours .
[2024-10-28 06:00] VITALS: BMI 20.2
[2024-10-28 07:19] VITALS: BP 173/84; PULSE 78; RESP 18; TEMP 36.1; O2SAT 95
[2024-10-28] MEDS: Sevelamer Carbonate Tablet 800 MG TABLET PO (08:01)
[2024-10-28] MEDS: hydrALAZINE HCl 25 MG TABLET PO ×2 (08:01→15:11)
[2024-10-28] MEDS: levETIRAcetam 500 MG TABLET PO (08:01)
[2024-10-28] MEDS: methADONE HCl 20 MG/2 ML ORAL.CONC 50 MG PO (08:02)
[2024-10-28] MEDS: NIFEdipine ER 30 MG TAB.ER.24 60 MG PO (08:02)
[2024-10-28] MEDS: 0.9 % Sodium Chloride Flush 3 ML SYRINGE IVFLUSH (08:03)
[2024-10-28 10:18] LABS: MANUAL DIFF FLAG NO
[2024-10-28 10:26] LABS: Basophils Absolute Auto 0.1 X10*3/uL (0.0-0.2); Basophils Percent Auto 1.2 % (0-2); Eosinophils Absolute Auto 0.1 X10*3/uL (0.0-0.4); Eosinophils Percent Auto 2.8 % (0-4); Hematocrit 23.8 % (37.0-47.0); Hemoglobin 7.7 g/dl (12.0-16.0); Imm Gran Abs Auto 0.02 X10*3/uL (0.00-0.03); Imm Gran Pct Auto 0.4 % (0.0-0.4); Lymphocytes Absolute Auto 0.8 X10*3/uL (1.2-4.9); Lymphocytes Percent Auto 15.6 % (20-40); Mean Corpuscular HGB Conc 32.4 g/dl (31.0-35.0); Mean Corpuscular Hemoglobin 30.9 pg (27.0-33.0); Mean Corpuscular Volume 95.6 fL (80.0-98.0); Mean Platelet Volume 10.2 fL (9.4-12.3); Monocytes Absolute Auto 0.5 X10*3/uL (0.1-1.2); Monocytes Percent Auto 9.3 % (2-11); Neutrophils Absolute Auto 3.5 x10*3/uL (2.0-8.3); Neutrophils Percent Auto 70.7 % (45-73); Platelet Count 243 X10*3/uL (160-400); Red Blood Count 2.49 X10*6/uL (4.20-5.50); Red Cell Distribution Width 14.7 % (11.0-16.0); White Blood Count 4.9 X10*3/uL (4.8-10.8)
[2024-10-28 10:43] LABS: Anion Gap 15 (12-20); Blood Urea Nitrogen 39 mg/dL (9-16); Calcium 8.3 mg/dL (8.4-10.2); Carbon Dioxide 29 mmol/L (22-29); Chloride 97 mmol/L (96-108); Creatinine Clr Calc Pharmacy 10.2; Estimated Glomerular Filt Rate 9; Glucose Random 124 mg/dL (60-115); Potassium 5.2 mmol/L (3.3-5.1); Sodium 136 mmol/L (135-145)
--- NOTE | 2024-10-28 13:49 | MHC.RECOVRN ---
Attempted to meet with pt to follow up after methadone increase to 50 mg today. Pt sound asleep in dialysis. Allowed to rest.
--- NOTE | 2024-10-28 13:58 | P.DS_ITS ---
DS: Providers Provider Date of Service: 10/28/24 Date of admission: 10/25/24 23:34 Date of discharge: 10/28/24 Primary care physician: None Physician Consults: 10/26/24 02:43 Addiction Medicine Provider Stat Consulting Provider: Addiction Covering Reason for consultation: polysubstance use disorder Has provider been notified: No 10/26/24 12:01 Consult to Nephrology Routine Consulting Provider: [facility] Reason for consultation: End-stage renal disease requiring hemodialysis Has provider been notified: Yes 10/27/24 10:25 Inpt - Recovery Team Routine Comment: Reason for consultation: ARETHA eval DS: Diagnosis Discharge Diagnosis (1) Opioid use disorder: Status: Acute (2) Hypertension, uncontrolled: Status: Acute (3) Acute hyperkalemia: Status: Acute (4) Medical non-compliance: Status: Acute (5) ESRD (end stage renal disease) on dialysis: Status: Acute DS: Summary Hospital Course Hospital Course: Admission note HPI Ms. 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 who presented to the ER today with ? dizziness, nausea and vomiting. She reported a fall, hitting her head without LOC. She has had multiple admissions here at [facility] most recently 09/24/2024 to 09/30/2024 for? hyperkalemia, AMS, intoxication and again 10/13/2024 to 10/20/2024 with hyperkalemia, seizures, vomiting and hypertension. The patient was discharged home on Keppra?and vanco for C diff but?has not taken meds or had HD since the day of her last discharge. On arrival to the emergency room, the patient's blood pressure was? 174/105,? heart rate 76, temp 97.9,? O2 sat 99% on room air.Laboratory data significant for? RBC 2.25, hemoglobin 6.8, hematocrit 21.4, potassium 8.9, CO2 18, anion gap 27, BUN 107, creatinine 10.23, AST 38, ALT 93, alk-phos 178.?Imaging:Chest x-ray unremarkable.Head CT showed nothing acute, no acute hemorrhage ED course: ? the patient received 2 g calcium chloride, 1 amp sodium bicarb, [id number] mg, Lokelma 5 g, Keppra 500 mg, lorazepam 1 mg, Zofran 4 mg, insulin 5 units, dextrose 25 g,? albuterol. Dr. Dooley from nephrology was consulted. The patient was admitted to ICU for emergent dialysis. Hospital course The patient was treated for the following: # Uncontrolled hypertension likely due to noncompliance. increased Carvedilol dosage and started on Hydralazine on top of Nifedipine 30mg XL. to monitor BP as outpatient and follow with nephrology for further dose adjustment. # ESRD, poor compliance with hemodialysis complicated with acute hyperkalemia. Nephrology did total of 3 treatments while inpatient. to continue with her regular schedule on Thursday. potassium improved. # Nausea and vomiting. likely related with high BP. improved with Zofran. # Seizure disorder. on Keppra # Recent dx of C diff. Finished total of 14 days of p.o. vancomycin # Polysubstance abuse on Methadone. Addiction medicine saw the patient and increased the dose to 50 mg daily. Discharge plan Low sodium diet Increase Carvedilol to 12.5 mg twice a day Start Hydralazine 25 mg three times a day Monitor blood pressure for the next week and follow with nephrology for medication adjustment Follow with Methadone clinic. Time Attestation Discharge Coordination Time (in mins): 46 Quality: Safe Use of Opioids Does Pt have an Active Cancer Diagnosis on the Problem List?: No Quality: Stroke Does the patient have a stroke diagnosis?: No Physical Exam Vital Signs: Vital Signs: Last Vital Signs Temp 96.9 F 10/28/24 07:19 Pulse 78 10/28/24 07:19 Resp 18 10/28/24 07:19 BP 173/84 H 10/28/24 07:19 Pulse Ox 95 10/28/24 07:19 O2 Del Method Room Air 10/28/24 07:19 BMI result Body Mass Index 20.2 Const: Other: Constitutional : Awake, interactive, not in distress Neck : Normal inspection, Supple Cardiovascular : RRR, no JVP, no lower extremity edema Respiratory : good bilateral air entry, no crackles, wheezes or rhonchi Gastrointestinal: soft, lax, Normal bowel sounds, Non tender Skin : Warm, Dry, bruises , Dialysis cath chest wall clean Neurological : Alert & oriented x3, No focal deficit DS: Data Data Completed and Pending Completed studies during hospitalization [Text1]: Procedures Insertion of Endotracheal Airway into Trachea, Via Natural or Artificial Opening (09/24/24) Insertion of Infusion Device into Upper Vein, Percutaneous Approach (09/24/24) Performance of Urinary Filtration, Intermittent, Less than 6 Hours Per Day (10/13/24) Respiratory Ventilation, 24-96 Consecutive Hours (09/24/24) Transfusion of Nonautologous Red Blood Cells into Peripheral Vein, Percutaneous Approach (09/24/24) Labs on day of discharge: Laboratory Results - last 24 hr 10/28/24 10/28/24 09:44 09:45 WBC 4.9 RBC 2.49 L Hgb 7.7 L Hct 23.8 L MCV 95.6 MCH 30.9 MCHC 32.4 RDW 14.7 Plt Count 243 D MPV 10.2 Immature Gran % (Auto) 0.4 Neut % (Auto) 70.7 Lymph % (Auto) 15.6 L [place] % (Auto) 9.3 Eos % (Auto) 2.8 Baso % (Auto) 1.2 Lymph # (Auto) 0.8 L [place] # (Auto) 0.5 Eos # (Auto) 0.1 Baso # (Auto) 0.1 Abs Immat Gran (auto) 0.02 Absolute Neuts (auto) 3.5 Absolute Nucleated RBC 0.000 Nucleated RBC % (auto) 0.0 Sodium 136 Potassium 5.2 H Chloride 97 Carbon Dioxide 29 Anion Gap 15 BUN 39 H Creatinine 5.24 H* Estim Creat Clear Calc 10.2 Estimated GFR 9 Random Glucose 124 H Calcium 8.3 L D Discharge Plan Discharge Anticipated Discharge Date/Time: 10/28/24 13:49 Patient Disposition: Home, Self-Care Discharge Diagnosis: Uncontrolled Hypertension Need of dialysis Referrals: Physician,None [Primary Care Provider] - 1 Week Discharge Medications: New carvedilol 12.5 mg Tablet 12.5 mg PO BID Qty: 60 1RF Protocol: Hold for SBP/HR < HOLD for SBP < : 90 HOLD for HR < : 60 hydralazine 25 mg Tablet 25 mg PO TID Qty: 90 1RF Protocol: Hold for SBP< HOLD for SBP < : 90 methadone [Methadose] 10 mg/mL Concentrate 50 mg PO DAILY@0800 30 Days Qty: 30 0RF Rx Instructions: Partial Fill upon patient request. Continued sevelamer carbonate 800 mg tablet 800 mg PO TIDWM Lokelma 10 gram powder in packet 10 g PO SUTUTHSA levetiracetam 500 mg Tablet 500 mg PO BID Qty: 180 0RF nifedipine 30 mg tablet extended release 24hr 30 mg PO DAILY Discontinued methadone [Methadose] 10 mg/mL Concentrate 45 mg PO DAILY Qty: 30 0RF Rx Instructions: Partial Fill upon patient request. carvedilol 6.25 mg tablet 6.25 mg PO BID Discharge Orders: Discharge Order (Routine); Ordered 10/28/24 Ordered By: Orlando Gonzalez Diet: Low salt diet Activity on Discharge: As tolerated Stand Alone Forms: Patient Portal Discharge page Print Language: Sen[place]alese Care Plan Goals: Low sodium diet Increase Carvedilol to 12.5 mg twice a day Start Hydralazine 25 mg three times a day Monitor blood pressure for the next week and follow with nephrology for medication adjustment Follow with Methadone clinic. Health Concerns: . Plan of Treatment: . Assessment: .
--- NOTE | 2024-10-28 14:31 | MHC.CM.PN ---
Pt has been medically cleared for DC, she will go home via family transport and resume [facility]NA care from [facility].
--- NOTE | 2024-10-28 17:41 | P.PNNP_ITS ---
Subjective Subjective Date of Service: 10/28/24 Principal diagnosis: seen and examined on HD Interval history: Seen and examiend,sherry mcmahon noted Physical Exam 2 Vital Signs: Vital Signs: Last Vital Signs Temp 96.9 F 10/28/24 07:19 Pulse 78 10/28/24 07:19 Resp 18 10/28/24 07:19 BP 173/84 H 10/28/24 07:19 Pulse Ox 95 10/28/24 07:19 O2 Del Method Room Air 10/28/24 07:19 BMI result Body Mass Index 20.2 Const: General: no acute distress; No confusion Orientation/consciousness: No confusion HEENT: Head: Yes normocephalic and Yes atraumatic General nose exam: Normal external nose present (Nares patent, septum midline, sinuses nontender bilaterally.) Mouth: Normal oral and palatal mucosa present (No thrush, tongue in midline, mucosa moist.) Throat: Yes other (No erythema, no exudate.) Eyes: Direct Ophthalmoscopy: No photophobia Neck: Neck: Yes supple Carotids: normal carotid upstroke Resp: Auscultation: clear to auscultation bilaterally (normal work of breathing, no accessory muscle use) and diminished lung sounds Cardio: Jugular venous distension: no JVD Rate: regular rate Rhythm: r egular rhythm Heart sounds: S1 normal heart sound present, S2 normal heart sound present, no gallops, no murmurs and no rubs Peripheral pulses: P eripheral pulses 2+ throughout GI: Palpation (GI): Soft to palpation and nontender Neuro: General: No confusion Cranial nerves: Yes Normal hearing present Extrem: General: Yes full ROM, Yes capillary refill normal, Yes no clubbing, cyanosis or edema and Yes pedal edema Psych: Affect: normal affect Attitude: cooperative Objective Data Labs 10/28/24 09:45 10/28/24 09:44 Labs: Laboratory Results - last 24 hr 10/28/24 10/28/24 09:44 09:45 WBC 4.9 RBC 2.49 L Hgb 7.7 L Hct 23.8 L MCV 95.6 MCH 30.9 MCHC 32.4 RDW 14.7 Plt Count 243 D MPV 10.2 Immature Gran % (Auto) 0.4 Neut % (Auto) 70.7 Lymph % (Auto) 15.6 L [place] % (Auto) 9.3 Eos % (Auto) 2.8 Baso % (Auto) 1.2 Lymph # (Auto) 0.8 L [place] # (Auto) 0.5 Eos # (Auto) 0.1 Baso # (Auto) 0.1 Abs Immat Gran (auto) 0.02 Absolute Neuts (auto) 3.5 Absolute Nucleated RBC 0.000 Nucleated RBC % (auto) 0.0 Sodium 136 Potassium 5.2 H Chloride 97 Carbon Dioxide 29 Anion Gap 15 BUN 39 H Creatinine 5.24 H* Estim Creat Clear Calc 10.2 Estimated GFR 9 Random Glucose 124 H Calcium 8.3 L D Procedures Date of Service Date of Service: 10/28/24 Assessment & Plan Assessment and plan (1) ESRD (end stage renal disease): Status: Inactive (2) Hyperkalemia: Status: Acute (3) Anemia: Status: Inactive Plan optimize volume status P binder LEONEL renal diet d/c planning Needs to take Lokelma on non-HD days Time Spent With Patient Time: Total time managing care of this patient today ____ minutes. Progress Note: Quality Stroke Does the patient have a stroke diagnosis?: No
== END 2024-10-28 15:23 | disposition home or self-care (01) | DRG 425 ==
LOC: HO.ED 21:29 → HO.EDOVER 23:42 → HO.ICU 10-26 00:24 → HO.IMC 10-26 13:34
PROVIDERS: Internal Medicine Nephrology; Internal Medicine Pulmonary Disease; Student in an Organized Health Care Education/Training Program; Admitting Provider Nurse Practitioner Family; Emergency Provider Emergency Medicine; Visit Provider Student in an Organized Health Care Education/Training Program
DX: E87.5 Hyperkalemia (principal); N18.6 End stage renal disease; E85.4 Organ-limited amyloidosis; A04.72 Enterocolitis due to Clostridium difficile, not specified as recurrent; D63.1 Anemia in chronic kidney disease; I10 Essential (primary) hypertension; F11.20 Opioid dependence, uncomplicated; F19.10 Other psychoactive substance abuse, uncomplicated; G40.909 Epilepsy, unspecified, not intractable, without status epilepticus; Z91.158 Patient's noncompliance with renal dialysis for other reason; T36.8X6A Underdosing of other systemic antibiotics, initial encounter; T42.6X6A Underdosing of other antiepileptic and sedative-hypnotic drugs, initial encounter; Z99.2 Dependence on renal dialysis; Z20.822 Contact with and (suspected) exposure to COVID-19; Z79.899 Other long term (current) drug therapy
CPT/HCPCS: 0241U; 36415; 70450; 71045; 80048; 80051; 80076; 82040; 82803; 82947; 83690; 83735; 84100; 85025; 86850; 86900; 86901; 86923; 90999; 93005; 94640; 99285; J0360; J0613; J2060; J2405; J2765; P9016; S9485

== ENCOUNTER → 2024-10-25 18:38 | Outpatient (BNV) | payer MEDICAID, SELFPAY | PROVIDERS: Admitting Provider Nurse Practitioner Family; Emergency Provider Emergency Medicine; Visit Provider Internal Medicine | DX: R94.31 Abnormal electrocardiogram [ECG] [EKG] (principal); R42 Dizziness and giddiness | CPT/HCPCS: 93010 ==

== ENCOUNTER → 2024-10-25 18:38 | Outpatient (BNV) | payer MEDICAID, SELFPAY | PROVIDERS: Emergency Provider Emergency Medicine; Visit Provider Radiology Diagnostic Radiology | DX: S09.90XA Unspecified injury of head, initial encounter (principal); R06.00 Dyspnea, unspecified | CPT/HCPCS: 70450; 71045 ==

== ENCOUNTER → 2024-10-25 23:34 | Outpatient (BNV) | payer OTHER, SELFPAY | PROVIDERS: Admitting Provider Nurse Practitioner Family; Emergency Provider Emergency Medicine; Visit Provider Nurse Practitioner Psychiatric/Mental Health | DX: F11.90 Opioid use, unspecified, uncomplicated (principal) | CPT/HCPCS: 99232 ==

== ENCOUNTER → 2024-10-25 23:34 | Outpatient (BNV) | payer MEDICAID, SELFPAY | PROVIDERS: Admitting Provider Nurse Practitioner Family; Emergency Provider Emergency Medicine; Visit Provider Nurse Practitioner Family | DX: I12.0 Hypertensive chronic kidney disease with stage 5 chronic kidney disease or end stage renal disease (principal); N18.6 End stage renal disease; Z99.2 Dependence on renal dialysis; E87.5 Hyperkalemia; D63.1 Anemia in chronic kidney disease; Z91.199 Patient's noncompliance with other medical treatment and regimen due to unspecified reason; A04.72 Enterocolitis due to Clostridium difficile, not specified as recurrent; A08.11 Acute gastroenteropathy due to Norwalk agent | CPT/HCPCS: 99291 ==

== ENCOUNTER → 2024-10-25 23:34 | Outpatient (BNV) | payer MEDICAID, SELFPAY | PROVIDERS: Admitting Provider Nurse Practitioner Family; Emergency Provider Emergency Medicine; Visit Provider Internal Medicine | DX: F11.90 Opioid use, unspecified, uncomplicated (principal); I12.0 Hypertensive chronic kidney disease with stage 5 chronic kidney disease or end stage renal disease; E87.5 Hyperkalemia; Z91.199 Patient's noncompliance with other medical treatment and regimen due to unspecified reason; N18.6 End stage renal disease; Z99.2 Dependence on renal dialysis | CPT/HCPCS: 99233; 99239; 99499 ==

== ENCOUNTER 2024-11-09 13:49 | Emergency (ER) | payer MEDICAID, SELFPAY ==
[2024-11-09] VITALS (8 sets, daily range): BP systolic 186–213; BP diastolic 102–122; PULSE 73–100; RESP 12–19; TEMP 36.5–36.8; O2SAT 97–100; BMI 19.4
--- NOTE | ~2024-11-09 | MR_ITS ---
CLINICAL HISTORY: needs spinal screen c o low back pain --- Additional Notes or Special Instructions: spinal screen please, IVDA, lumbar area is the most pain MR lumbar spine with and without gadolinium Comparison: CT/SR - CT ABDOMEN PELVIS WO IV CON - 09/24/24 10:36 EST Findings: No scoliosis or spondylolisthesis. No acute fracture or pathologic bone lesion. Cauda equina and conus medullaris within normal limits. Disc bulge at L4-L5 with mild left neural foraminal stenosis. Disc bulge with annular tear at L5-S1 with mild bilateral neural foraminal stenosis. No significant spinal canal stenosis. Paraspinous musculature intact. IMPRESSION: Disc bulge at L4-L5 with mild left neural foraminal stenosis. Disc bulge with annular tear at L5-S1 with mild bilateral neural foraminal stenosis. No significant spinal canal stenosis. This document has been electronically signed by: Mayte Hartley MD on 11/09/2024 18:59:43
--- NOTE | ~2024-11-09 | MR_ITS ---
CLINICAL HISTORY: spinal screen MR cervical spine with and without gadolinium Comparison: CT/SR - CT CERVICAL SPINE WO IV CON - 09/24/24 10:36 EST Findings: Normal vertebral body alignment. Hemangioma T1. No acute fractures or pathologic bone lesions. Disc bulges from C3-C4 through C5-C6 without significant spinal canal or neural foraminal stenosis. No acute findings on limited view of the intracranial contents. No cervical fluid collections or masses. Cervical cord normal. IMPRESSION: No acute findings. This document has been electronically signed by: Mayte Hartley MD on 11/09/2024 18:51:54
--- NOTE | ~2024-11-09 | MR_ITS ---
CLINICAL HISTORY: spinal screen MR thoracic spine with and without gadolinium Comparison: CT/SR - CT CHEST WO IV CON - 09/24/24 10:36 EST Findings: No scoliosis or spondylolisthesis. Hemangioma T1 and T11. No acute fracture or pathologic bone lesion. Thoracic cord normal size and signal. No significant spinal canal or foraminal stenoses. No significant degenerative change. Paraspinous musculature intact. IMPRESSION: No acute findings. This document has been electronically signed by: Mayte Hartley MD on 11/09/2024 18:55:01
--- NOTE | 2024-11-09 13:50 | ECG_ITS ---
Test Reason : SEIZURE Blood Pressure : */* mmHG Vent. Rate : 80 BPM Atrial Rate : 80 BPM P-R Int : 114 ms QRS Dur : 74 ms QT Int : 400 ms P-R-T Axes : 49 -38 14 degrees QTcB Int : 461 ms Normal sinus rhythm with sinus arrhythmia Left axis deviation Cannot rule out Anterior infarct (cited on or before 25-Oct-2024) Abnormal ECG When compared with ECG of 25-Oct-2024 19:26, QRS duration has decreased Questionable change in initial forces of Anteroseptal leads Referred By: Elena Raymond Electronically Signed By: MO DELEON MD
--- NOTE | 2024-11-09 14:08 | ED.SEIZURE ---
HPI - Seizure General Chief Complaint: Seizure Stated Complaint: Sz during dialysis, postictal currently Time Seen by Provider: 11/09/24 16:04 Source: patient, EMS and old records reviewed Mode of arrival: EMS Limitations: no limitations History of Present Illness ED Provider: DARREL RIZVI Narrative: 49 yo female ESRD on HD MWF last HD today not a full course completed 3 hours, anemia, substance abuse, seizures on keppra, HTN - she comes in with seizure x 5 min witnessed no trauma during HD. She was postictal with EMS. She admits to not taking her keppra recently it is not clear when she last took it. She denies any recent issues but then on exam she has a large abscess on LUE - she states she saw it today which is hard to believe given the size of it. She denies n/v/d, fever, CP/SOB. 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) Description of Episode: loss of consciousness and tonic-clonic movement Duration of episode: 5 -: minutes(s) Witnessed: Yes - by Bystander Trauma: No Seizure History: Yes Place: HD center Possible Precipitating Event: medication Associated symptoms: other (LUE abscess) Treatments prior to arrival: none Related Data Home Medications ?Medication ?Instructions ?Recorded ?Confirmed sevelamer carbonate 800 mg tablet 800 mg PO TIDWM 09/24/24 10/26/24 sodium zirconium cyclosilicate 10 10 g PO SUTUTHSA 09/24/24 10/26/24 gram oral powder packet (Lokelma) Previous Rx's ?Medication ?Instructions ?Recorded carvedilol 12.5 mg tablet 12.5 mg PO BID #60 tabs 10/28/24 hydralazine 25 mg tablet 25 mg PO TID #90 tabs 10/28/24 levetiracetam 500 mg tablet 500 mg PO BID #180 tabs 10/28/24 methadone 10 mg/mL oral 50 mg (5 mL) PO DAILY@0800 30 days 10/28/24 concentrate (Methadose) #30 mL nifedipine 30 mg tablet,extended 30 mg PO DAILY 9 days #90 tabs 10/28/24 release 24 hr cephalexin 500 mg capsule 500 mg PO BID #20 caps 11/09/24 doxycycline hyclate 100 mg tablet 100 mg PO BID #20 tabs 11/09/24 Allergies Allergy/AdvReac Type Severity Reaction Status Date / Time No Known Allergies Allergy Verified 11/09/24 13:53 Review of Systems Review of Systems: Constitutional : No Fever, No Chills ENT/Mouth : No sore throat, No Rhinorrhea Eyes: No Eye Pain, No Swelling, No Redness Cardiovascular : No Chest Pain, No SOB Respiratory : No Cough, No Sputum Gastrointestinal : No Nausea, No Vomiting, No Diarrhea, No abdominal Pain Genitourinary : No Dysuria, No Hematuria Musculoskeletal : No joint pain, No Myalgias, No Joint Swelling, pos back pain Skin : No Skin Lesions, positive skin rash Neuro : No Weakness, No Numbness, No Headache, pos seizure All other systems reviewed and are negative [facility] Past Medical History Attestation statement: The following information was validated with the patient. Source: old records reviewed Medical History Hypertension, uncontrolled Anemia due to chronic kidney disease Medical non-compliance Norovirus Clostridioides difficile diarrhea Opioid use disorder ESRD (end stage renal disease) on dialysis Anemia HTN (hypertension) Drug abuse ESRD (end stage renal disease) Social History Social History Housing: House Do you presently have visiting nurse or other home services: No Alcohol intake: unknown Comment: pt refusing bed alarm Patient Tobacco Use Status: Tobacco use Unknown Smoked in Last 30 Days: No Use of substances other than those prescribed or required for medical reasons: Yes Substance Use Type: Crack/Cocaine and Heroin Substance Use Frequency: Daily Last Used Substance: Hours (ago) Advance Directives: Yes Advance Directives on File: Yes Advance Directives Date on File: 09/25/24 Do you have a plan to hurt others: No Plan Patient : No service: No Physical Exam Vital Signs: Vital Signs: Last Vital Signs Temp 98.3 F 11/09/24 18:40 Pulse 77 11/09/24 18:40 Resp 18 11/09/24 18:40 BP 187/106 H 11/09/24 18:40 Pulse Ox 98 11/09/24 18:40 O2 Del Method Room Air 11/09/24 18:40 BMI result Body Mass Index 19.4 Appearance: Alert. Oriented X3. Mild acute distress. Frail disheveled Eyes: Pupils equal, round and reactive to light. ENT: Pharynx normal. Neck: Normal inspection. Neck supple. CVS: Normal heart rate and rhythm. Pulses normal. chest: port in chest no signs of infection Respiratory: No respiratory distress. Breath sounds normal. Abdomen: Soft and nontender. Skin: Skin warm and dry. pale skin color. Normal skin turgor. Extremities: RUE 1+ pitting edema, no LE edema, L UE orange sized red hot fluctuant abscess with overlying erythema at the upper deltoid Neuro: Oriented X 3. No motor deficit. No sensory deficit. CN2-12 intact Course Course Course Narrative: signed out to Dr. Prajapati 410pm pending MRI Medications Administered Discontinued Medications Generic Name Dose Route Start Last Admin Trade Name Freq PRN Reason Stop Dose Admin Gadobutrol 7.5 ml 11/09/24 18:31 11/09/24 18:32 Gadobutrol 7.5 Ml Vial IVPUSH 11/09/24 18:32 5 ml ONCE ONE Administration Hydralazine HCl 10 mg 11/09/24 16:05 11/09/24 16:23 Hydralazine Hcl 20 Mg/Ml Vial IVPUSH 11/09/24 16:06 10 mg ONCE ONE Administration Protocol Hydralazine HCl 25 mg 11/09/24 16:05 11/09/24 16:23 Hydralazine Hcl 25 Mg Tablet PO 11/09/24 16:06 25 mg ONCE ONE Administration Protocol Hydromorphone HCl 0.5 mg 11/09/24 15:28 11/09/24 15:46 Hydromorphone Hcl 0.5 Mg/0.5 Ml Syringe IVPUSH 11/09/24 15:29 0.5 mg ONCE ONE Administration Protocol Hydromorphone HCl 1 mg 11/09/24 17:08 11/09/24 17:12 Hydromorphone Hcl 1 Mg/Ml Syringe IVPUSH 11/09/24 17:09 1 mg ONCE ONE Administration Protocol Hydromorphone HCl 0.5 mg 11/09/24 19:35 11/09/24 19:44 Hydromorphone Hcl 0.5 Mg/0.5 Ml Syringe IVPUSH 11/09/24 19:36 0.5 mg ONCE ONE Administration Protocol Piperacillin Sod/Tazobactam 50 mls @ 100 mls/hr 11/09/24 13:57 11/09/24 15:46 Sod 3.375 gm/ Sodium Chloride IV 11/09/24 14:26 Infused ONCE ONE Infusion Vancomycin HCl 1,250 mg/ 250 mls @ 166.667 mls/hr 11/09/24 13:57 11/09/24 19:09 Sodium Chloride IV 11/09/24 15:26 Infused ONCE ONE Infusion Levetiracetam 500 mg in 100 mls @ 400 mls/hr 11/09/24 13:57 11/09/24 14:50 Keppra IV 11/09/24 14:11 Infused ONCE ONE Infusion Lidocaine HCl 1 appl 11/09/24 13:57 11/09/24 14:48 Lidocaine 4 % Cream Kit TOPICAL 11/09/24 13:58 1 appl ONCE ONE Administration Protocol Ondansetron HCl 4 mg 11/09/24 17:08 11/09/24 17:12 Ondansetron Hcl 4 Mg/2 Ml Vial IVPUSH 11/09/24 17:09 4 mg ONCE ONE Administration Ondansetron HCl 4 mg 11/09/24 19:35 11/09/24 19:44 Ondansetron Hcl 4 Mg/2 Ml Vial IVPUSH 11/09/24 19:36 4 mg ONCE ONE Administration Medical Decision Making Medical Decision Making MDM Narrative: 49 yo female ESRD on HD MWF last HD today not a full course did complete 3 hour course, anemia, substance abuse, seizures on keppra, HTN here with c/o seizure at HD unable to complete HD she admits to non compliance no signs of head trauma it was witnessed at this time given her IV keppra 500mg, lytes/K+, H/H, EKG, she also has a massive abscess on the deltoid area distal NV intact, no signs of crepitus and her arm is otherwise soft and compressible - will start on IV abx and aspirate the area if she allows. She c/o worsening back pain given her IVDA I do not feel comfortable blaming the seizure for causing her back pain will obtain MRI discussed with MRI spinal screen 341pm I received sign-out from my colleague Dr. Raymond Patient has not had any auras or seizure-like activity Patient states that the pain in her left upper arm is much better after she got a I and D MRI of the lumbar/thoracic/cervical spine do not show any acute abnormality. It is likely that the patient's source of the pain are herniated discs at L4 L5 and L5-S1. Patient instructed to follow-up with the primary care physician, patient may need a referral to physical therapy Patient is agreeable to be discharged home and be compliant with her medications. Patient needs to come back in 24-48 hours for wound check Differential Diagnosis Differential Diagnoses: The differential diagnosis associated with the presentation includes non compliance, hyperK, seizure, abscess, cellulitis Admission/Observation Consideration of admission/observation: Escalation of care including admission/observation considered needs IV abx and admission Lab Data MDM Lab Attestation statement: I reviewed the patient's lab results. 11/09/24 14:30 11/09/24 14:30 Labs: Lab Results 11/09/24 Range/Units 14:30 WBC 14.6 H (4.8-10.8) X10*3/uL RBC 3.03 L D (4.20-5.50) X10*6/uL Hgb 9.1 L (12.0-16.0) g/dl Hct 27.5 L (37.0-47.0) % MCV 90.8 (80.0-98.0) fL MCH 30.0 (27.0-33.0) pg MCHC 33.1 (31.0-35.0) g/dl RDW 14.3 (11.0-16.0) % Plt Count 356 D (160-400) X10*3/uL MPV 9.9 (9.4-12.3) fL Immature Gran % (Auto) 1.6 H (0.0-0.4) % Neut % (Auto) 87.5 H (45-73) % Lymph % (Auto) 6.2 L (20-40) % [place] % (Auto) 3.5 (2-11) % Eos % (Auto) 0.7 (0-4) % Baso % (Auto) 0.5 (0-2) % Lymph # (Auto) 0.9 L (1.2-4.9) X10*3/uL [place] # (Auto) 0.5 (0.1-1.2) X10*3/uL Eos # (Auto) 0.1 (0.0-0.4) X10*3/uL Baso # (Auto) 0.1 (0.0-0.2) X10*3/uL Abs Immat Gran (auto) 0.24 H (0.00-0.03) X10*3/uL Absolute Neuts (auto) 12.8 H (2.0-8.3) x10*3/uL Absolute Nucleated RBC 0.000 (0.0-0.012) X10*3/uL Nucleated RBC % (auto) 0.0 (0.0-0.2) /100WBC Sodium 135 (135-145) mmol/L Potassium 4.5 (3.3-5.1) mmol/L Chloride 95 L (96-108) mmol/L Carbon Dioxide 25 (22-29) mmol/L Anion Gap 20 (12-20) BUN 34 H (9-16) mg/dL Creatinine 6.22 H* (0.5-1.4) mg/dL Estim Creat Clear Calc 8.2 Estimated GFR 7 Random Glucose 108 (60-115) mg/dL Lactic Acid 1.3 (0.5-2.0) mmol/L Calcium 8.7 (8.4-10.2) mg/dL Magnesium 1.9 (1.6-2.6) mg/dL Total Bilirubin 0.4 (0.0-1.0) mg/dL Direct Bilirubin 0.1 (0.0-0.5) mg/dL AST 24 (5-31) U/L ALT 11 (0-31) U/L Alkaline Phosphatase 149 H (39-117) U/L Total Protein 6.7 (6.5-8.0) g/dL Albumin 3.5 (3.5-5.0) g/dL Independent Interpretation I performed an independent interpretation of an: EKG and CT Scan Interpretation: Rate: 80 Rhythm: NSR [place]: left Normal P waves. Normal KELLY. Normal QRS complex. ST T wave : no NARCISA, no peaked t waves qTC: 461 prior studies: no acute ischemia The study has been interpreted contemporaneously by me. . Radiology Impression Discussion of test interpretation with radiology: I have reviewed the radiologist's reading. Radiologist Impression: No scoliosis or spondylolisthesis. No acute fracture or pathologic bone lesion. Cauda equina and conus medullaris within normal limits. Disc bulge at L4-L5 with mild left neural foraminal stenosis. Disc bulge with annular tear at L5-S1 with mild bilateral neural foraminal stenosis. No significant spinal canal stenosis. Paraspinous musculature intact. No scoliosis or spondylolisthesis. Hemangioma T1 and T11. No acute fracture or pathologic bone lesion. Thoracic cord normal size and signal. No significant spinal canal or foraminal stenoses. No significant degenerative change. Paraspinous musculature intact. Normal vertebral body alignment. Hemangioma T1. No acute fractures or pathologic bone lesions. Disc bulges from C3-C4 through C5-C6 without significant spinal canal or neural foraminal stenosis. No acute findings on limited view of the intracranial contents. No cervical fluid collections or masses. Cervical cord normal. Independent Historian Clinical information obtained from an independent historian. History obtained from or confirmed by: EMS External Record Review External record reviewed: Inpatient record and Outpatient record Procedures Abscess I/D Site: upper extremity Side (if applicable): left Local Anesthetic: lidocaine 1% and other anesthetic Amount of anesthesia used (mL): 5 Technique: incised with blade Amount of fluid expressed (mL): 20 Sent for culture/gram staining?: No Irrigation: Yes Packing used?: iodoform Critical Care Time Critical Care Time Critical Care Time: Yes Total Critical Care Time: 45 Attestation: Time is exclusive of separately billable procedures. Time includes: direct patient care, patient reassessment, coordination of patient care, interpretation of data (laboratory data, pulse oximetry), review of patient's medical records, medical consultation and documentation of patient care. Procedures excluded from critical care time: electrocardiography. Seizure management and IV keppra, IV hydralazine for HTN, IV dilaudid for pain with improvement. I attest to this time spent taking care of the patient Discharge Plan Discharge Clinical Impression: Abscess, Seizure, Medical non-compliance, Bulging lumbar disc Patient Disposition: Home, Self-Care Instructions: Sciatica (ED), Abscess (ED), Lower Back Exercises (ED), Abscess Follow-up (ED) Additional Instructions: You need to return to the emergency room or see your primary care physician in 24-48 hours for wound check. Please follow-up with your primary care physician tomorrow. If you have any worsening or new symptoms, please return to the emergency room or call 911 Prescriptions: New doxycycline hyclate 100 mg tablet 100 mg PO BID Qty: 20 0RF cephalexin 500 mg capsule 500 mg PO BID Qty: 20 0RF No Action sevelamer carbonate 800 mg tablet 800 mg PO TIDWM Lokelma 10 gram powder in packet 10 g PO SUTUTHSA carvedilol 12.5 mg Tablet 12.5 mg PO BID Qty: 60 1RF Protocol: Hold for SBP/HR < HOLD for SBP < : 90 HOLD for HR < : 60 hydralazine 25 mg Tablet 25 mg PO TID Qty: 90 1RF Protocol: Hold for SBP< HOLD for SBP < : 90 methadone [Methadose] 10 mg/mL Concentrate 50 mg PO DAILY@0800 30 Days Qty: 30 0RF Rx Instructions: Partial Fill upon patient request. nifedipine 30 mg tablet extended release 24hr 30 mg PO DAILY 9 Days Qty: 90 0RF levetiracetam 500 mg Tablet 500 mg PO BID Qty: 180 0RF Print Language: Unable To Collect
[2024-11-09] MEDS: Piperacillin Sodium/Tazobactam 3.375 GM in 0.9 % Sodium Chloride 50 ML IV (14:34)
[2024-11-09] MEDS: levETIRAcetam in NaCl (iso-os) 500 MG/100 ML PIGGYBACK 400 MG IV (14:34)
[2024-11-09 14:36] LABS: MANUAL DIFF FLAG NO
[2024-11-09] MEDS: Lidocaine 4 % Cream KIT 1 APPL TOPICAL (14:48)
--- NOTE | 2024-11-09 14:50 | PC.NURSE ---
biba s/p uncompleted course of dialysis d/t witnessed seizure that lasted x 5 min. 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 no trauma noted during dialysis treatment. pt reports somewhat compliant w/ keppra but unable to satte when she last took it. upon ED arrival - pt alert and oriented to self. pt currently in post-ictal state. unable to recall event/what presents her to the ED today. vital signs stable/up to date aside from being hypertensive. nsr on the conveyor monitor. on RA w/o difficulty. no sob/wob noted. respirations even/unlabored. pt noted to have large abscess to LUE when changing into hospital attire. large/red/swollen. states she noticed abscess to LUE this am. pt denies any fevers/chills. no drainage from affected area. tender w/ palpation. pt currently c/o generalized back pain s/p HD. pt is a difficult stick. 20g ultrasound guided IV placed in the LUE basilic vein - labs obtained/sent to lab. medication administered per provider order. seizure pads in place for safety precautions. plan of care ongoing. call winkler placed within reach.
[2024-11-09 14:52] LABS: Basophils Absolute Auto 0.1 X10*3/uL (0.0-0.2); Basophils Percent Auto 0.5 % (0-2); Eosinophils Absolute Auto 0.1 X10*3/uL (0.0-0.4); Eosinophils Percent Auto 0.7 % (0-4); Hematocrit 27.5 % (37.0-47.0); Hemoglobin 9.1 g/dl (12.0-16.0); Imm Gran Abs Auto 0.24 X10*3/uL (0.00-0.03); Imm Gran Pct Auto 1.6 % (0.0-0.4); Lymphocytes Absolute Auto 0.9 X10*3/uL (1.2-4.9); Lymphocytes Percent Auto 6.2 % (20-40); Mean Corpuscular HGB Conc 33.1 g/dl (31.0-35.0); Mean Corpuscular Volume 90.8 fL (80.0-98.0); Mean Platelet Volume 9.9 fL (9.4-12.3); Monocytes Absolute Auto 0.5 X10*3/uL (0.1-1.2); Monocytes Percent Auto 3.5 % (2-11); Neutrophils Absolute Auto 12.8 x10*3/uL (2.0-8.3); Neutrophils Percent Auto 87.5 % (45-73); Platelet Count 356 X10*3/uL (160-400); Red Blood Count 3.03 X10*6/uL (4.20-5.50); Red Cell Distribution Width 14.3 % (11.0-16.0); White Blood Count 14.6 X10*3/uL (4.8-10.8)
[2024-11-09 14:55] LABS: Lactic Acid 1.3 mmol/L (0.5-2.0)
[2024-11-09 15:04] LABS: Alanine Aminotransferase 11 U/L (0-31); Albumin Level 3.5 g/dL (3.5-5.0); Anion Gap 20 (12-20); Aspartate Amino Transferase 24 U/L (5-31); Bilirubin Direct 0.1 mg/dL (0.0-0.5); Bilirubin Total 0.4 mg/dL (0.0-1.0); Blood Urea Nitrogen 34 mg/dL (9-16); Calcium 8.7 mg/dL (8.4-10.2); Carbon Dioxide 25 mmol/L (22-29); Chloride 95 mmol/L (96-108); Creatinine Clr Calc Pharmacy 8.2; Estimated Glomerular Filt Rate 7; Glucose Random 108 mg/dL (60-115); Magnesium 1.9 mg/dL (1.6-2.6); Potassium 4.5 mmol/L (3.3-5.1); Sodium 135 mmol/L (135-145); Total Protein 6.7 g/dL (6.5-8.0)
[2024-11-09] MEDS: vancomycin HCL 1,250 MG in 0.9 % Sodium Chloride 250 ML 166.67 MG IV (15:45)
[2024-11-09] MEDS: HYDROmorphone HCl 0.5 MG/0.5 ML SYRINGE IVPUSH ×2 (15:46→19:44)
--- NOTE | 2024-11-09 15:48 | PC.NURSE ---
delay in abx d/t limited IV access. pt medicated per provider order. pt verbalizing increase in pain in LUE s/p I&D. medication administered per provider order. effectiveness pending. pt remains on RA w/o difficulty. no sob/wob noted. respirations even/unlabored. precautions remain in plce. plan of care ongoing. call winkler placed within reach.
[2024-11-09] MEDS: hydrALAZINE HCl 25 MG TABLET PO (16:23)
[2024-11-09] MEDS: hydrALAZINE HCl 20 MG/ML VIAL 10 MG IVPUSH (16:23)
[2024-11-09 16:30] LABS: Alkaline Phosphatase 149 U/L (39-117)
--- NOTE | 2024-11-09 16:41 | PC.NURSE ---
pt remains hypertensive at this time - otherwise vss and up to date. nsr on the bus monitor. pt reports she did not take BP meds today as she states she usually takes them after completing dialysis. pt reports as she was unable to finish dialysis, she was unable to take her meds today. provider notified/aware. pt medicated per provider order. effectiveness pending. MRI screening form filled out/faxed/placed in pt chart. pt otherwise remains on RA w/o difficulty. no sob/wob noted. respirations even/unlabored. pending RICHARDSON for MRI to be completed. seizure precautions remain in place. plan of care ongoing. call winkler placed within reach.
[2024-11-09] MEDS: ondansetron HCL 4 MG/2 ML VIAL IVPUSH ×2 (17:12→19:44)
[2024-11-09] MEDS: HYDROmorphone HCl 1 MG/ML SYRINGE IVPUSH (17:12)
--- NOTE | 2024-11-09 17:16 | PC.NURSE ---
pt reports increase in generalized back pain despite previous medication administration. pt noted to be actively vomiting. provider notified/aware. remedicated per provider order. pt being transported to MRI at this time. plan of care ongoing.
--- OUTSIDE RECORDS SUMMARY | 2024-11-09 17:30 | XMS_ITS | Clinical Summary ---
Author Organization Formerly [facility] Address [address] 7[address] [place] [address] Care Team Providers Care Bank President Name Role Phone ThaliaDevi oconnorshena OLIVEROS Primary Care Provider [phone] Allergies No known active allergies Medications amphetamine-dextro [...] Team Description 10/07/2024 Population Health Risk Score [facility] (C3) Department [address] [phone] Provider, Population Health Generic 09/24/2024 [...] EST Narrative 09/24/2024 4:24 PM EST ? [facility] ?[address] ?[place] [address] ? CT Scan Report ? Signed ? Patient: [place],Simran ?MR#: [id number] ? : 1975 ?Acct:[id number] ? Age/Sex: 49 / F ?ADM Date: 03//25 ? Loc: HO.ICU ?255-1 ? Attending Dr: Carlton Vasquez MD ? Ordering Physician: Elena Raymond DO ?? Date of Service: 09/24/24 ?? Procedure(s): CT head/brain wo IV con ?? Accession Number(s): [id number] ? cc: Elena Raymond DO; [facility] ? Report Number: ?? [id number]: Total DLP = ??599.00 mGy-cm ? CLINICAL [...] ? DD/ 1623 ? TD/TT: 09/24/243 ? Hand Quilter: ? Procedure Note Roxanne, Toño - 09/26/[address] [place] [address] [address] Scan Report Signed Patient: Agata Bolanos#: [id number] : 1975Acct:[id number] Age/Sex: 49 / FADM Date: 09/24/24 Loc: HO.ICU 255-[address]: Carlton Vasquez MD Ordering Physician: Elena Raymond DO Date of Service: 09/24/24 Procedure(s): CT head/brain wo IV con Accession Number(s): [id number] cc: Elena Raymond DO; [facility] Report Number: [id number]: Total DLP = 599.00 mGy-cm CLINICAL HISTORY: [...] 09/24/24 1624 DD/ 1623 TD/TT: 09/24/24 1623 Hand Quilter: [facility] External Provider IMG CT PROCEDURES Final Result * XR Chest 1 View (09/24/2024 3:41 PM EST) Only the most recent of2 resultswithin the time period is included. Anatomical Region Laterality Modality Chest Radiographic Davina ging 09/24/2024 3:41 PM EST Narrative 09/24/2024 3:42 PM EST ? [facility] ?[address] ?[place] [address] ?XRay Report ? Signed ? Patient: Simran Bolanos ?MR#: [id number] ? : 1975 ?Acct:[id number] ? Age/Sex: 49 / F ?ADM Date: 09/24/24 ? Loc: HO.ICU ?255-1 ? Attending Dr: Carlton Vasquez MD ? Ordering Physician: Elena Raymond DO ?? Date of Service: 09/24/24 ?? Procedure(s): XR chest 1V ?? Accession Number(s): [id number] ? cc: Elena Raymond DO; [facility] ? CLINICAL HISTORY: intubated ETT placement [...] DD/ 1541 ? TD/TT: 09/24/24 1541 ? Hand Quilter: ? Procedure Note Donotuseinterpreter, Image - 09/26/2024 [place] [address] XRay Report Signed Patient: Agata Bolanos#: [id number] : 1975Acct:[id number] Age/Sex: 49 / FADM Date: 09/24/24 Loc: .[facility] 255-[address]: Carlton Vasquez MD Ordering Physician: Elena Raymond DO Date of Service: 09/24/24 Procedure(s): XR chest 1V Accession Number(s): [id number] cc: Elena Raymond DO; [facility] CLINICAL HISTORY: intubated ETT placement Single [...] 09/24/24 1542 DD/ 1541 TD/TT: 09/24/24 1541 Hand Quilter: [facility] External Provider IMG XR PROCEDURES Final Result * CT Abdomen Pelvis w/o Contrast (09/24/2024 12:00 PM EST) Anatomical Region Laterality Modality Body, Pelvis, Abdomen Computed T omography 09/24/2024 12:0 0 PM EST Narrative 09/24/2024 12:02 PM EST ? [facility] ?[address] ?[place] [address] ? CT Scan Report ? Signed ? Patient: [place],Simran ?MR#: [id number] ? : 1975 ?Acct:[id number] ? Age/Sex: 49 / F ?ADM Date: 09/24/24 ? Loc: HO.[place] ?ICU-1 ? Attending Dr: Carlton Vasquez MD ? Ordering Physician: Elena Raymond DO ?? Date of Service: 09/24/24 ?? Procedure(s): CT abdomen pelvis wo IV con ?? Accession Number(s): [id number] ? cc: Elena Raymond DO; [facility] ? Report Number: ?? [id number]: Total DLP = ??734.51 mGy-cm ? CLINICAL [...] DD/ 1200 ? TD/TT: 09/24/24 1200 ? Hand Quilter: ? Procedure Note Roxanne, Image - 09/26/[address] [address] [address] Scan Report Signed Patient: Agata Bolanos#: [id number] : 1975Acct:[id number] Age/Sex: 49 / FADM Date: 09/24/24 Loc: [facility] ICU-[address]: Carlton Vasquez MD Ordering Physician: Elena Raymond DO Date of Service: 09/24/24 Procedure(s): CT abdomen pelvis wo IV con Accession Number(s): [id number] cc: Elena Raymond DO; [facility] Report Number: [id number]: Total DLP = 734.51 mGy-cm CLINICAL HISTORY: [...] 09/24/24 1201 DD/ 1200 TD/TT: 09/24/24 1200 Hand Quilter: [facility] External Provider IMG CT PROCEDURES Edited Result - Final * CT Cervical Spine w/o Contrast (09/24/2024 11:53 AM EST) Anatomical Region Laterality Modality Spine, C-spine Computed Tomogra phy 09/24/2024 11:5 3 AM EST Narrative 09/24/2024 11:55 AM EST ? [facility] ?[address] ?[place] [address] ? CT Scan Report ? Signed ? Patient: [place],Simran ?MR#: [id number] ? : 1975 ?Acct:[id number] ? Age/Sex: 49 / F ?ADM Date: 09/24/24 ? Loc: HO.ED ? Attending Dr: ? Ordering Physician: Elena Raymond DO ?? Date of Service: 09/24/24 ?? Procedure(s): CT cervical spine wo IV con ?? Accession Number(s): [id number] ? cc: Elena Raymond DO; [facility] ? Report Number: ?? [id number]: Total DLP = ??485.62 mGy-cm ? CLINICAL [...] DD/ 1153 ? TD/TT: 09/24/24 1153 ? Hand Quilter: ? Procedure Note Toño Oliveira - 09/26/[address] [place] [address] [address] Scan Report Signed Patient: Agata Bolanos#: [id number] : 1975Acct:[id number] Age/Sex: 49 / FADM Date: 09/24/24 Loc: HO.ED Attending Dr: Ordering Physician: Elena Raymond DO Date of Service: 09/24/24 Procedure(s): CT cervical spine wo IV con Accession Number(s): [id number] cc: Elena Raymond DO; [facility] Report Number: [id number]: Total DLP = 485.62 mGy-cm CLINICAL HISTORY: [...] 09/24/24 1155 DD/ 1153 TD/TT: 09/24/24 1153 Hand Quilter: [facility] External Provider IMG CT PROCEDURES Edited Result - Final * CT Chest w/o Contrast (09/24/2024 11:52 AM EST) Anatomical Region Laterality Modality Body, Chest Computed Tomogra phy 09/24/2024 11:5 2 AM EST Narrative 09/24/2024 11:53 AM EST ? [facility] ?[address] ?[place] [address] ? CT Scan Report ? Signed ? Patient: Simran Bolanos ?MR#: [id number] ? : 1975 ?Acct:[id number] ? Age/Sex: 49 / F ?ADM Date: 09/24/24 ? Loc: HO.ED ? Attending Dr: ? Ordering Physician: Elena Raymond DO ?? Date of Service: 09/24/24 ?? Procedure(s): CT chest wo IV con ?? Accession Number(s): [id number] ? cc: Elena Raymond DO; [facility] ? Report Number: ?? [id number]: Total DLP = ??308.02 mGy-cm ? CLINICAL [...] DD/ 1152 ? TD/TT: 09/24/24 1152 ? Hand Quilter: ? Procedure Note Donotuseinterpreter, Image - 09/26/[address] [place] [address] [address] Scan Report Signed Patient: Agata Bolanos#: [id number] : 1975Acct:[id number] Age/Sex: 49 / FADM Date: 09/24/24 Loc: HO.ED Attending Dr: Ordering Physician: Elena Raymond DO Date of Service: 09/24/24 Procedure(s): CT chest wo IV con Accession Number(s): [id number] cc: Elena Raymond DO; [facility] Report Number: [id number]: Total DLP = 308.02 mGy-cm CLINICAL HISTORY: [...] 09/24/24 1153 DD/ 1152 TD/TT: 09/24/24 1152 Hand Quilter: [facility] External Provider IMG CT PROCEDURES Edited Result - Final * (ABNORMAL) Glucose, Whole Blood (09/24/2024 10:59 AM EST) Glucose, Whole Blood 54(LL) 60 - 115 mg/dL [facility] Comment:METER #: [id number] 09/24/2024 10:5 9 AM EST 09/24/2024 11:03 AM EST Generic External Data Provider LAB BLOOD ORDERAB LES Final Result Performing Organization Address [facility] Co de Phone Number [facility] [address] [place] [address] [phone] * Hold Green Gel (09/24/2024 10:10 AM EST) Only the most recent of3 resultswithin the time period is included. Hold Green Gel See Note [facility] Comment:Specimen held untest ed for 24 hours; Call to requestChemistry testing. 09/24/2024 10:1 0 AM EST 09/24/2024 10:31 AM EST Generic External Data Provider HISTORICAL/NON OR DERABLE LABS Final Result Performing Organization Address [facility]/ZIP Co de Phone Number [facility] [address] [place] [address] [phone] * Hold Lavender - Possible Hematology (09/24/2024 10:10 AM EST) Hold Lavender - Possible Hematololgy SEE NOTE [facility] Comment:Specimen will be hel d untested for 8 hours. Call Hematologyif testing is desired. 09/24/2024 10:1 0 AM EST 09/24/2024 10:30 AM EST us Generic External Data Provider HISTORICAL/NON OR DERABLE LABS Final Result Performing Organization Address [facility] Co de Phone Number [facility] [address] [place] [phone] * Acetaminophen level (09/24/2024 10:10 AM EST) Acetaminophen LAB <3 <30 mcg/mL [facility] 09/24/2024 10:1 0 AM EST 09/24/2024 10:20 AM EST us Generic External Data Provider LAB BLOOD ORDERAB LES Final Result Performing Organization Address [facility] Phone Number [facility] [address] [place] [phone] * (ABNORMAL) Salicylate (09/24/2024 10:10 AM EST) Salicylate <5.0(L) 15 - 30 mg/dL [facility] 09/24/2024 10:1 0 AM EST 09/24/2024 10:20 AM EST us Generic External Data Provider LAB BLOOD ORDERAB LES Final Result Performing Organization Address [facility] de Phone Number [facility] [address] [place] [phone] * Slide Review (09/24/2024 9:44 AM EST) Slide Review VERIFIED [facility] 09/24/2024 9:44 AM EST 09/24/2024 9:51 AM EST us Generic External Data Provider LAB BLOOD ORDERAB LES Final Result Performing Organization Address [facility] Co de Phone Number [facility] [address] [place] [phone] * (ABNORMAL) High Sensitivity Troponin I (09/24/2024 9:44 AM EST) [facility] TROPONIN I HIGH SENSITIVITY 195.9(HH) <3.5 - 17.0 ng/L [facility] Comment:Critical value for t est(s): TROPONIN Results called to arturrosalie back by: PERLA Person calling:MARIAM Date: 09/24/24Time:1055The [place] high sensitivity Troponin-I results should beused in conjunction with other diagnostic information suchas ECG, clinical observations and information, and patientsymptoms to aid in the diagnosis of IA. 09/24/2024 9:44 AM EST 09/24/2024 9:51 AM EST Generic External Data Provider LAB BLOOD ORDERAB LES Final Result Performing Organization Address [facility] Co de Phone Number [facility] [address] [place] [phone] * Ethanol (09/24/2024 9:44 AM EST) [facility] ETHANOL (MG/DL) IN SER/PLAS <10 mg/dL [facility] Comment:Serum/plasma ethanol results are to be used formedical/treatment purposes only. 09/24/2024 9:44 AM EST 09/24/2024 9:51 AM EST us Generic External Data Provider LAB BLOOD ORDERAB LES Final Result Performing Organization Address [facility] Co de Phone Number [facility] [address] [place] [phone] * (ABNORMAL) TSH with Reflex to Free T4 (09/24/2024 9:44 AM EST) [facility] TSH reflex Free T4 61.26(H) 0.32 - 4.0 uIU/mL [facility] 09/24/2024 9:4 4 AM EST 09/24/2024 9:51 AM EST us Generic External Data Provider LAB BLOOD ORDERAB LES Final Result [facility] [address] [place] [phone] [phone] * Procalcitonin (09/24/2024 9:44 AM EST) Procalcitonin 0.99 ng/mL [facility] Comment: Procalcitonin (PCT) Reference Range:PCT [...] in interpreting PCT results fromdifferent laboratories and methodologies.References:[place] [employer]/Society of CriticalCare Medicine Consensus Conference Committee. ??Definitionsfor sepsis and organ failure and guidelines for the use ofinnovative therapies in sepsis. ??Crit Care Xmu1614;20(6):864-874.Fran B, Kyleigh KL, Toyin H, et al. ??Calcitoninprecursors are reliable markers of sepsis in a medicalintensive care unit. ??Crit Care Med 2000;363:600-607.Nestor S, Mahesh K, Lucina C, et al. ??Diagnosticvalue of procalcitonin, interleukin-6 and interleukin-8 incritically ill patients admitted with suspected sepsis. ??AMJ Respir Crit Care Med 2001;164:396-402.US Food and Drug Administration. ??510(k) substantialequivalence determination decision summary for [facility] [employer]CTL[employer].http://www.accessdata.fda.fov/cdrh_docs/[email or web address].pdf.Published July 2004. ??Accessed December 2016. 09/24/2024 9:44 AM EST 09/24/2024 9:51 AM EST us Generic External Data Provider LAB BLOOD ORDERAB LES Final Result [facility] [address] [place] [phone] [phone] * (ABNORMAL) CBC auto differential (09/24/2024 9:44 AM EST) White Blood Count 18.7(H) 4.8 - 10.8 X10*3/uL [facility] Red Blood Count 2.39(L) 4.20 - 5.50 X10*6/uL [facility] Hemoglobin 6.8(LL) 12.0 - 16.0 g/dl [facility] Comment:Test was verified by repeat analysis.Critical HGB called to and read back by Jack 09/24/24 at 1003 by FINN. Hematocrit 20.9(LL) 37.0 - 47.0 % [facility] Comment:Test was verified by repeat analysis.Critical HCT called to and read back by Jack 09/24/24 at 1003 by FINN. Mean Corpuscular Volume 87.4 80.0 - 98.0 fL [facility] Mean Corpuscular Hemoglobin 28.5 27.0 - 33.0 pg [facility] Mean Corpuscular HGB Conc 32.5 31.0 - 35.0 g/dl [facility] Red Cell Distribution Width 15.7 11.0 - 16.0 % [facility] Platelet Count 356 160 - 400 X10*3/uL [facility] Mean Platelet Volume 10.0 9.4 - 12.3 fL [facility] Neutrophils Percent Auto 93.6(H) 45 - 73 % [facility] Imm Gran Pct Auto 0.8(H) 0.0 - 0.4 % [facility] Lymphocytes Percent Auto 3.0(L) 20 - 40 % [facility] Monocytes Percent Auto 2.4 2 - 11 % [facility] Eosinophils Percent Auto 0.0 0 - 4 % [facility] Basophils Percent Auto 0.2 0 - 2 % [facility] NRBC Pct Auto 0.0 0.0 - 0.2 /100WBC [facility] Neutrophils Absolute Auto 17.5(H) 2.0 - 8.3 x10*3/uL [facility] Imm Gran Abs Auto 0.14(H) 0.00 - 0.03 X10*3/uL [facility] Lymphocytes Absolute Auto 0.6(L) 1.2 - 4.9 X10*3/uL [facility] Monocytes Absolute Auto 0.4 0.1 - 1.2 X10*3/uL [facility] Eosinophils Absolute Auto 0.0 0.0 - 0.4 X10*3/uL [facility] Basophils Absolute Auto 0.0 0.0 - 0.2 X10*3/uL [facility] NRBC Abs Auto 0.000 0.0 - 0.012 X10*3/uL [facility] 09/24/2024 9:44 AM EST 09/24/2024 9:51 AM EST us Generic External Data Provider LAB BLOOD ORDERAB LES Edited Result - Final Performing Organization Address City/[facility]/ZIP Co de Phone Number [facility] [address] [place] [phone] * (ABNORMAL) C-reactive Protein (09/24/2024 9:44 AM EST) C Reactive Protein 3.89(H) < or = 0.50 mg/dL [facility] 09/24/2024 9:44 AM EST 09/24/2024 9:51 AM EST us Generic External Data Provider LAB BLOOD ORDERAB LES Final Result Performing Organization Address City/[facility]/ZIP Co de Phone Number [facility] [address] [place] [phone] * hCG, Total, Quantitative (09/24/2024 9:44 AM EST) HCG Quantitative <2 mIU/mL [facility] Comment:Weeks post LMP Appro ximate hCG(Last Menstrual Period) Range (mIU/ml)3 - 4 weeks 9 - 1304 - 5 weeks 75 - 2,6005 - 6 weeks 850 - 20,8006 - 7 weeks 4000 - 100,2007 - 12 weeks 11,500 - 289,53149 - 16 weeks 18,300 - 137,26256 - 29 weeks (2nd trimester) 1,400 - 53,72036 - 41 weeks (3rd trimester) 940 - [...] ORDERAB LES Final Result Performing Organization Address [facility] Co de Phone Number [facility] [address] [place] [phone] * (ABNORMAL) B Type Natriuretic Peptide (BNP) (09/24/2024 9:44 AM EST) B Type Natriuretic Peptide 2,222(H) <100 pg/mL [facility] Comment:For those patients w ho are being treated with Natrecor(nesiritide, recombinant BNP), BNP testing should beperformed at least two hours post treatment in order toensure that only endogenous levels of BNP are detected. 09/24/2024 9:44 AM EST 09/24/2024 9:51 AM EST Generic External Data Provider LAB BLOOD ORDERAB LES Final Result Performing Organization Address [facility]/ZIP Co de Phone Number [facility] [address] [place] [phone] * Magnesium (09/24/2024 9:44 AM EST) Pathologist [facility] Magnesium 2.3 1.6 - 2.6 mg/dL [facility] 09/24/2024 9:44 AM EST 09/24/2024 9:51 AM EST Generic External Data Provider LAB BLOOD ORDERAB LES Final Result Performing Organization Address [facility] Co de Phone Number [facility] [address] [place] [phone] * Lipase (09/24/2024 9:44 AM EST) [facility] Lipase 18 8 - 78 U/L [facility] 09/24/2024 9:44 AM EST 09/24/2024 9:51 AM EST Generic External Data Provider LAB BLOOD ORDERAB LES Final Result Performing Organization Address [facility] de Phone Number [facility] [address] [place] [phone] * (ABNORMAL) Lactic Acid (09/24/2024 9:44 AM EST) [facility] Lactic Acid 2.4(HH) 0.5 - 2.0 mmol/L [facility] Comment:Critical value for t est(s): LACTA Results called to ingrid back by: PERLA Person calling:MARIAM Date: 09/24/24Time:1055 09/24/2024 9:44 AM EST 09/24/2024 9:51 AM EST Generic External Data Provider LAB BLOOD ORDERAB LES Final Result Performing Organization Address [facility] de Phone Number [facility] [address] [place] [phone] * (ABNORMAL) Creatine Kinase, Total (09/24/2024 9:44 AM EST) Creatine Kinase Total 360(H) 26 - 140 U/L [facility] 09/24/2024 9:44 AM EST 09/24/2024 9:51 AM EST us Generic External Data Provider LAB BLOOD ORDERAB LES Final Result Performing Organization Address [facility] Phone Number [facility] [address] [place] [phone] * Ammonia, Plasma (09/24/2024 9:44 AM EST) Pathologist [facility] Ammonia (P) 23 13 - 55 umol/L [facility] 09/24/2024 9:44 AM EST 09/24/2024 10:20 AM EST us Generic External Data Provider LAB BLOOD ORDERAB LES Final Result Performing Organization Address [facility] Phone Number [facility] [address] [place] [phone] * (ABNORMAL) Hepatic Function Panel (09/24/2024 9:44 AM EST) Pathologist [facility] Bilirubin, Total 0.5 0.0 - 1.0 mg/dL [facility] Bilirubin, Direct 0.2 0.0 - 0.5 mg/dL [facility] Aspartate Amino Transferase 18 5 - 31 U/L [facility] Alanine Aminotransferase <6 0 - 31 U/L [facility] Total Protein 6.3(L) 6.5 - 8.0 g/dL [facility] Albumin Level 3.2(L) 3.5 - 5.0 g/dL [facility] Alkaline Phosphatase 83 39 - 117 U/L [facility] 09/24/2024 9:44 AM EST 09/24/2024 9:51 AM EST us Generic External Data Provider LAB BLOOD ORDERAB LES Final Result [facility] [address] [place] [phone] * (ABNORMAL) Basic Metabolic Panel (09/24/2024 9:44 AM EST) Sodium 140 135 - 145 mmol/L [facility] Potassium 7.3(HH) 3.3 - 5.1 mmol/L [facility] Comment:Critical value for t est(s): POTS Results called to andread back by: ANF TechnologyIM Person calling:LatindaNInstall[employer] Date: 09/24/24Time:1055Test was verified by repeat analysis. Chloride 93(L) 96 - 108 mmol/L [facility] Carbon Dioxide 16(L) 22 - 29 mmol/L [facility] Anion Gap 38(H) 12 - 20 [facility] Urea Nitrogen (BUN) 103(H) 9 - 16 mg/dL [facility] Creatinine, Serum 13.63(HH) 0.5 - 1.4 mg/dL [facility] Comment:Critical value for t est(s): CREAT Results called to andread back by: [employer] Person calling:Gigzolo Date: 09/24/24Time:1055 Creatinine Clr Calc Pharmacy 3.6 [facility] Comment:Provided height and weight: 152.4 cm,48.9 kg.eGFR (calculated from the MDRD study equation) and eCrCl(calculated from the Cockcroft-Gault equation) are based ondifferent parameters and may not yield comparable results.If eCrCl result is absurd, please check patient'sheight/weight. Estimated Glomerular Filt Rate 3 [facility] Comment:Chronic Kidney Disea se: Estimated GFR < 60 mL/min/1.80l8Xqowky Kidney Disease: Estimated GFR < 15 mL/min/1.73m2 Glucose 70 60 - 115 mg/dL [facility] Calcium 8.8 8.4 - 10.2 mg/dL [facility] 09/24/2024 9:44 AM EST 09/24/2024 9:51 AM EST us Generic External Data Provider LAB BLOOD ORDERAB LES Final Result [facility] [address] [place] [address] [phone] from Last 3 Months Care Teams Bank President Relationship Specialty Start Date End Date Simone Sloan PA-C [address] [place] [phone] PCP - General Family Medicine 11/16/23
--- OUTSIDE RECORDS SUMMARY | 2024-11-09 17:30 | XMS_ITS | Clinical Summary ---
Author Organization 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 [address] [place] [phone] Raoul Dooley MD End stage renal disease; Dependence on renal dialysis; Amyloidosis 10/13/2024 [facility] in Dialysis Clinic [facility] [address] [place] [phone] Raoul Dooley MD 10/12/2024 Treatment [facility] [address] [phone] Raoul Dooley MD End stage renal disease; Dependence on renal dialysis; Amyloidosis 10/12/2024 Office Communication [facility] [address] [phone] Raoul Dooley MD 09/14/2024 Treatment [facility] [address] [phone] Raoul Dooley MD 09/07/2024 Treatment [facility] [address] [phone] Raoul Dooley MD 08/29/2024 Treatment [facility] [address] [phone] Raoul Dooley MD 08/26/2024 Orders Only [facility] [address] [phone] Raoul Dooley MD 08/26/2024 Treatment [facility] [address] [phone] Raoul Dooley MD 08/24/2024 Treatment [facility] [address] [phone] Drake Alas MD 08/23/2024 Treatment [facility] [address] [phone] Raoul Dooley MD from Last 3 Months Social History Tobacco Use Types Packs/Day Years Used Date Smoking Tobacco: Never Assessed Comments Unknown Sex and Gender Information Value Date Recorded Sex Assigned at Not on file Legal Sex Female 11:46 AM EST Gender Identity Not on file Sexual Orientation Not on file Plan of Treatment Health Maintenance Due Date Last Done Comments Pneumococcal Vaccine: Peds ( 0 to 5 Years) and At-Risk Patients (6 to 49 Years) (1 of 2 - PCV) 1994 Hepatitis B Vaccine (1 of 5 - Risk Dialysis 4-dose series) 1995 Colorectal Cancer Screening: Annual FOBT 2024 Colorectal Cancer Screening: Colonoscopy 2024 Colorectal Cancer Screening: Sigmoidoscopy 2024 Influenza Vaccine (Season Ended) 2025 Procedures Procedure Name Priority Date/Time Associated Diagnosis Comments HEPATITIS B SURFACE ANTIGEN W/REFL CONFIRM Routine 10/31/2024 3:00 AM EDT TRANSFERRIN SATURATION Routine 3:00 AM EDT PROTEIN, TOTAL, SERUM Routine 10/31/2024 3:00 AM EDT ELECTROLYTE PANEL Routine 10/31/2024 3:0 0 AM EDT MAGNESIUM Routine 10/31/2024 3:00 AM EDT LIPID PANEL Routine 10/31/2024 3:00 AM EDT LIH (HC) Routine 10/31/2024 3:00 AM EDT LACTATE DEHYDROGENASE Routine 10/31/2024 3:00 AM EDT CREATININE, SERUM Routine 10/31/2024 3:0 0 AM EDT GLUCOSE, RANDOM Routine 10/31/2024 3:00 AM EDT BILIRUBIN, TOTAL Routine 10/31/2024 3:00 AM EDT AST Routine 10/31/2024 3:00 AM EDT ALKALINE PHOSPHATASE Routine 10/31/2024 3:00 AM EDT ALT Routine 10/31/2024 3:00 AM EDT CALCIUM PHOSPHORUS PRODUCT, ADJUSTED (HC) Routine 10/31/2024 3:00 AM EDT FERRITIN Routine 10/31/2024 3:00 AM EDT PTH, INTACT Routine 10/31/2024 3:00 AM EDT KT/V NATURAL LOG, URR (HC) Routine 10/31/2024 3:00 AM EDT COLLECTION DATE (HC) Routine 10/31/2024 3:00 AM EDT CBC AND DIFFERENTIAL Routine 10/31/2024 3:00 AM EDT ELECTROLYTE PANEL Routine 10/26/2024 7:3 9 PM EDT LIH (HC) Routine 10/21/2024 3:00 AM EDT HEMOGLOBIN Routine 10/21/2024 3:00 AM EDT KT/V NATURAL LOG, URR (HC) Routine 10/21/2024 3:00 AM EDT LIH (HC) [...] EST POTASSIUM Routine 08/12/2024 3:00 AM EST from Last 3 Months Results * Collection Date (10/31/2024 3:00 AM EDT) Only the most recent of2 resultswithin the time period is included. Collection Date See Comment [facility] Comment: Patient sample received may exceed specimen stability, based on the collection date electronically provided. ??When reviewing patient results, verify collection information and consider specimen stability before acting on any critical or panic results. 10/31/2024 3:00 AM EDT Raoul Dooley MD LAB [id number] SOLICITED RESULTS Final Result [facility] [address] [place] [address] * [facility] (10/31/2024 3:00 AM EDT) Only the most recent of13 resultswithin the time period is included. Lipemia Normal Normal [facility] Icterus Normal Normal [facility] Hemolysis Normal Normal [facility] 10/31/2024 3:00 AM EDT 11/03/2024 1:46 PM EDT Raoul Dooley MD LAB [id number] SOLICITED RESULTS Final Result Performing Organization Address [facility]/ZIP Co de Phone Number [facility] [address] [place] [address] * (ABNORMAL) Kt/V Natural Log, URR (10/31/2024 3:00 AM EDT) Only the most recent of6 resultswithin the time period is included. Treatment Time 166 min [facility] Pre-Weight, lb 46.5 kg [facility] Post-Weight, lb 45.6 kg [facility] Ultrafiltration Rate 7 <=13 mL/kg/hr [facility] Comment: Recommend achieving Ultrafiltration Rate (UFR) <=10 mL/kg/hr References: Keenan WALTERS et al. Kidney Int. 2010; 79(2):250-257 BUN Post Dialysis 21 7 - 25 mg/dL [facility] BUN 84(H) 7 - 25 mg/dL [facility] UREA REDUCTION RATIO (%) 75 >=65 % [facility] Kt/V Natural Log 1.54 >=1.2 [facility] 10/31/2024 3:00 AM EDT 11/03/2024 12:38 PM EDT Raoul Dooley MD LAB [id number] SOLICITED RESULTS Final Result Performing Organization Address [facility] de Phone Number [facility] [address] [place] [address] * (ABNORMAL) Calcium Phosphorus Product, Adjusted (10/31/2024 3:00 AM EDT) Only the most recent of3 resultswithin the time period is included. Albumin 4.0 3.6 - 5.4 g/dL [facility] Calcium 8.8 8.6 - 10.3 mg/dL [facility] Phosphorus, Serum 11.0(H) 2.5 - 5.0 mg/dL [facility] Ca*PO4 96.8(A) <55.0 mg2/dL2 [facility] Calcium, Adjusted Total 8.8 8.6 - 10.3 mg/dL [facility] CA*PO4 CORRCTD 96.8(A) <55.0 mg2/dL2 [facility] 10/31/2024 3:00 AM EDT 11/03/2024 1:46 PM EDT Raoul Dooley MD LAB [id number] SOLICITED RESULTS Final Result Performing Organization Address [facility] Co de Phone Number [facility] [address] [place] [address] * Hepatitis B Surface Ag w/Reflex Confirmation (10/31/2024 3:00 AM EDT) Only the most recent of3 resultswithin the time period is included. Hep B Surface Antigen Negative Negative [facility] 10/31/2024 3:00 AM EDT 11/03/2024 1:46 PM EDT Raoul Dooley MD LAB BLOOD ORDERABLES Final Re sult Performing Organization Address [facility] de Phone Number [facility] [address] [place] [address] * (ABNORMAL) TSAT (10/31/2024 3:00 AM EDT) Only the most recent of3 resultswithin the time period is included. Iron 34(L) 50 - 170 ug/dL [facility] Transferrin 136(L) 250 - 380 mg/dL [facility] TIBC 190(L) 211 - 406 ug/dL [facility] Iron Saturation (TSat) 18(L) 22 - 52 % [facility] 10/31/2024 3:00 AM EDT 11/03/2024 1:46 PM EDT Raoul Dooley MD LAB BLOOD ORDERABLES Final Re sult Performing Organization Address [facility] de Phone Number [facility] [address] [place] [address] * (ABNORMAL) CBC and Differential (10/31/2024 3:00 AM EDT) Only the most recent of3 resultswithin the time period is included. Pathologist [facility] DIFFERENTIAL MANUAL, 2 Not Indicated [facility] White Blood Cells 6.5 4.0 - 10.0 K/uL [facility] Comment:Verified by repeat a nalysis RBC 2.72(L) 3.93 - 5.22 M/uL [facility] Hgb 8.5(L) 11.2 - 15.7 g/dL [facility] Hemoglobin x 3 25.5(L) 33.6 - 47.1 g/dL [facility] Hematocrit 26.2(L) 34.1 - 44.9 % [facility] MCV 96.3(H) 79.4 - 94.8 fL [facility] MCH 31.3 25.6 - 32.2 pg [facility] MCHC 32.4 32.2 - 35.5 g/dL [facility] Platelets 355 182 - 369 K/uL [facility] RDW 14.1 11.7 - 14.4 % [facility] Neutrophils Relative 76.7(H) 34.0 - 71.1 % [facility] Lymphocytes Relative 10.4(L) 19.3 - 51.7 % [facility] Monocytes 7.3 4.7 - 12.5 % [facility] Eosinophils Relative 3.9 0.7 - 5.8 % [facility] Basophils Relative 0.5 0.1 - 1.2 % [facility] Immature Granulocytes 1.2(H) 0.0 - 1.0 % [facility] 10/31/2024 3:00 AM EDT 11/03/2024 12:35 PM EDT Raoul Dooley MD LAB BLOOD ORDERABLES Final Re sult [facility] [address] [place] [address] * ALT (10/31/2024 3:00 AM EDT) Only the most recent of3 resultswithin the time period is included. [facility] ALT (SGPT) 47 10 - 49 U/L [facility] 10/31/2024 3:00 AM EDT 11/03/2024 1:46 PM EDT Raoul Dooley MD LAB BLOOD ORDERABLES Final Re sult Performing Organization Address [facility] Co de Phone Number [facility] [address] [place] [address] * AST (10/31/2024 3:00 AM EDT) Only the most recent of3 resultswithin the time period is included. AST (SGOT) 16 <34 U/L [facility] 10/31/2024 3:00 AM EDT 11/03/2024 1:46 PM EDT Raoul Dooley MD LAB BLOOD ORDERABLES Final Re sult Performing Organization Address [facility] de Phone Number [facility] [address] [place] [address] * Protein, total (10/31/2024 3:00 AM EDT) Only the most recent of3 resultswithin the time period is included. Total Protein 6.6 6.4 - 8.9 g/dL [facility] 10/31/2024 3:00 AM EDT 11/03/2024 1:46 PM EDT Raoul Dooley MD LAB BLOOD ORDERABLES Final Re sult Performing Organization Address [facility] de Phone Number [facility] [address] [place] [address] * (ABNORMAL) Alkaline phosphatase (10/31/2024 3:00 AM EDT) Only the most recent of3 resultswithin the time period is included. Alkaline Phosphatase 166(H) 46 - 116 U/L [facility] 10/31/2024 3:00 AM EDT 11/03/2024 1:46 PM EDT us Raoul Dooley MD LAB BLOOD ORDERABLES Final Re sult Performing Organization Address [facility] Co de Phone Number [facility] [address] [place] [address] * PTH, Intact (10/31/2024 3:00 AM EDT) PTH, Intact 220 160 - 721 pg/mL [facility] Comment: Suggested (KDIGO) ESRD maintenance range is two to nine times the upper normal limit (80.1 pg/mL) for the laboratory. 10/31/2024 3:00 AM EDT 11/03/2024 1:46 PM EDT Raoul Dooley MD LAB BLOOD ORDERABLES Final Re sult Performing Organization Address [facility] Co de Phone Number [facility] [address] [place] [address] * Magnesium (10/31/2024 3:00 AM EDT) Only the most recent of3 resultswithin the time period is included. Magnesium 1.9 1.9 - 2.7 mg/dL [facility] 10/31/2024 3:00 AM EDT 11/03/2024 1:46 PM EDT Raoul Dooley MD LAB BLOOD ORDERABLES Final Re sult Performing Organization Address [facility] de Phone Number [facility] [address] [place] [address] * (ABNORMAL) Lactate dehydrogenase (10/31/2024 3:00 AM EDT) Only the most recent of3 resultswithin the time period is included. LDH 378(H) 120 - 246 U/L [facility] 10/31/2024 3:00 AM EDT 11/03/2024 1:46 PM EDT Raoul Dooley MD LAB BLOOD ORDERABLES Final Re sult Performing Organization Address [facility] de Phone Number [facility] [address] [place] [address] * Glucose, random (10/31/2024 3:00 AM EDT) Only the most recent of3 resultswithin the time period is included. Glucose 95 74 - 109 mg/dL [facility] 10/31/2024 3:00 AM EDT 11/03/2024 1:46 PM EDT Raoul Dooley MD LAB BLOOD ORDERABLES Final Re sult Performing Organization Address [facility] de Phone Number [facility] [address] [place] [address] * (ABNORMAL) Ferritin (10/31/2024 3:00 AM EDT) Only the most recent of3 resultswithin the time period is included. Ferritin 1,226(H) 10 - 291 ng/mL [facility] 10/31/2024 3:00 AM EDT 11/03/2024 1:46 PM EDT Raoul Dooley MD LAB BLOOD ORDERABLES Final Re sult Performing Organization Address [facility] de Phone Number [facility] [address] [place] [address] * (ABNORMAL) Creatinine, serum (10/31/2024 3:00 AM EDT) Only the most recent of3 resultswithin the time period is included. Creatinine 8.13(H) 0.55 - 1.02 mg/dL [facility] 10/31/2024 3:00 AM EDT 11/03/2024 1:46 PM EDT Raoul Dooley MD LAB BLOOD ORDERABLES Final Re sult Performing Organization Address [facility] de Phone Number [facility] [address] [place] [address] * (ABNORMAL) Bilirubin, total (10/31/2024 3:00 AM EDT) Only the most recent of3 resultswithin the time period is included. Total Bilirubin <0.2(L) 0.3 - 1.2 mg/dL [facility] 10/31/2024 3:00 AM EDT 11/03/2024 1:46 PM EDT us Raoul Dooley MD LAB BLOOD ORDERABLES Final Re sult Performing Organization Address [facility] de Phone Number [facility] [address] [place] [address] * (ABNORMAL) Lipid panel (10/31/2024 3:00 AM EDT) Cholesterol 193 <200 mg/dL [facility] Comment: Optimal: ?<200 Borderline: ? 200-239 High Risk: ?>239 Triglycerides 103 <150 mg/dL [facility] Comment: Optimal: ?<150 Borderline High: ??150-199 High: ? 200-499 Very High: ?>499 HDL 68 >59 mg/dL [facility] Comment: Optimal: >59 High Risk: <40 LDL-Calc 104(A) <100 mg/dL [facility] Comment: Optimal: ?<100 Above Optimal: ?100-129 Borderline High: ??130-159 High: ? 160-189 Very High: ?>189 VLDL Cholesterol Hany 21 <30 mg/dL [facility] Comment: Optimal: ?<30 Borderline High: ??30-39 High: ? 40-99 Very High: ?>99 Chol/HDL Ratio 2.8 <3.3 [facility] Comment: Optimal: ?<3.3 High Risk: ?>6.2 10/31/2024 3:00 AM EDT 11/03/2024 1:46 PM EDT us Raoul Dooley MD LAB BLOOD ORDERABLES Final Re sult Performing Organization Address [facility] de Phone Number [facility] [address] [place] [address] * (ABNORMAL) Electrolyte panel (10/31/2024 3:00 AM EDT) Only the most recent of4 resultswithin the time period is included. Sodium 130(L) 136 - 145 mEq/L [facility] Potassium 6.2(H) 3.4 - 5.0 mEq/L [facility] Chloride 93(L) 98 - 107 mEq/L [facility] Bicarbonate (CO2) 19(L) 21 - 31 mEq/L [facility] Anion Gap 18(H) 3 - 14 mEq/L [facility] 10/31/2024 3:00 AM EDT 11/03/2024 1:46 PM EDT Raoul Dooley MD LAB BLOOD ORDERABLES Final Re sult Performing Organization Address [facility] de Phone Number [facility] [address] [place] [address] * (ABNORMAL) Hemoglobin (10/21/2024 3:00 AM EDT) Only the most recent of4 resultswithin the time period is included. Hgb 7.3(L) 11.2 - 15.7 g/dL [facility] Hemoglobin x 3 21.9(L) 33.6 - 47.1 g/dL [facility] 10/21/2024 3:00 AM EDT 10/22/2024 1:23 PM EDT Raoul Dooley MD LAB BLOOD ORDERABLES Final Re sult Performing Organization Address [facility] de Phone Number [facility] [address] [place] [address] * (ABNORMAL) Phosphorus (09/14/2024 3:00 AM EST) Only the most recent of2 resultswithin the time period is included. Phosphorus, Serum 10.9(H) 2.5 - 5.0 mg/dL [facility] 09/14/2024 3:00 AM EST 09/16/2024 1:21 PM EST Raoul Dooley MD LAB BLOOD ORDERABLES Final Re sult Performing Organization Address City/[facility]/ZIP Co de Phone Number [facility] [address] [place] [address] * Potassium (08/26/2024 3:00 AM EST) Only the most recent of6 resultswithin the time period is included. Potassium 4.6 3.4 - 5.0 mEq/L [facility] 08/26/2024 3:00 AM EST 08/29/2024 1:08 PM EST Raoul Dooley MD LAB BLOOD ORDERABLES Final Re sult Performing Organization Address [facility] Co de Phone Number [facility] [address] [place] [address] from Last 3 Months [place]
--- OUTSIDE RECORDS SUMMARY | 2024-11-09 17:30 | XMS_ITS | Encounter Summary ---
Author Organization [facility] Address [address] [place] [phone] Phone Care Team Providers Care Anatomical Embalmer Name Role Phone Unavailable Primary Care Provider Unavailabl e Encounter Details Date Type Department Care Team ([facility] st Contact Info) Description 10/13/2024 TCM in Dialysis Clinic [facility] [address] [phone] Carrillo Valerio MD [address] [phone] Social History Tobacco Use Types [...] 10/13/2024 The patient was seen for a zfoo-di-xqke visit as part of Transitional Care Management services. 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, unspecified Attending Composition Roofer: MARIA T FRAGOSO MD Dialysis Location: [facility] Schedule: Shift: 2 INTERACTIVE CONTACT Contact [...] not missing HD VISIT DIAGNOSES CPT Code 62643 - High complexity, seen 8-14 days post discharge or moderate complexity, seen days of discharge. N18.6 End stage renal disease Signed by: CARRILLO VALERIO MD on 10/13/2024 at 04:49:36 AM documented in this encounter Plan of Treatment Not on file documented as of this encounter Visit Diagnoses Not on filedocumented in this encounter
[2024-11-09] MEDS: gadobutroL 7.5 ML VIAL IVPUSH (18:32)
--- NOTE | 2024-11-09 19:47 | PC.NURSE ---
verbal order from MD Prajapati for another dose of both 0.5mg dilaudid, and 4mg zofran
== END 2024-11-09 20:28 | disposition home or self-care (01) ==
PROVIDERS: Emergency Medicine; Emergency Provider Emergency Medicine
DX: G40.909 Epilepsy, unspecified, not intractable, without status epilepticus (principal); Z91.148 Patient's other noncompliance with medication regimen for other reason; M51.369 Other intervertebral disc degeneration, lumbar region without mention of lumbar back pain or lower extremity pain; L02.412 Cutaneous abscess of left axilla; R60.0 Localized edema; M54.50 Low back pain, unspecified; M54.9 Dorsalgia, unspecified; F19.10 Other psychoactive substance abuse, uncomplicated; I12.0 Hypertensive chronic kidney disease with stage 5 chronic kidney disease or end stage renal disease; N18.6 End stage renal disease; Z99.2 Dependence on renal dialysis; D63.1 Anemia in chronic kidney disease; F11.20 Opioid dependence, uncomplicated
CPT/HCPCS: 10060; 36415; 72156; 72157; 72158; 80048; 80076; 83605; 83735; 85025; 87040; 87147; 87205; 93005; 96365; 96366; 96367; 96375; 96376; 99285; A9585; J0360; J1171; J1953; J2405; J2543; J3371

== ENCOUNTER → 2024-11-09 13:50 | Outpatient (BNV) | payer MEDICAID, SELFPAY | PROVIDERS: Emergency Provider Emergency Medicine; Visit Provider Internal Medicine Cardiovascular Disease | DX: R94.31 Abnormal electrocardiogram [ECG] [EKG] (principal); R56.9 Unspecified convulsions | CPT/HCPCS: 93010 ==

== ENCOUNTER → 2024-11-09 15:38 | Outpatient (BNV) | payer MEDICAID, SELFPAY | PROVIDERS: Emergency Provider Emergency Medicine; Visit Provider Radiology Diagnostic Radiology | DX: Z13.828 Encounter for screening for other musculoskeletal disorder (principal); M51.26 Other intervertebral disc displacement, lumbar region; M51.A4 Intervertebral annulus fibrosus defect, small, lumbosacral region; M54.50 Low back pain, unspecified | CPT/HCPCS: 72156; 72157; 72158 ==

== ENCOUNTER 2024-11-10 19:54 | Inpatient (IN) | payer MEDICAID, SELFPAY ==
[2024-11-10 20:22] VITALS: BP 164/98; PULSE 68; RESP 18; TEMP 37.1; O2SAT 98; BMI 19.2
--- NOTE | 2024-11-10 20:22 | ED_ITS ---
HPI - General Adult General Chief complaint: Recheck/Abnormal Lab/Rx Stated complaint: abnormal labs Time Seen by Provider: 11/10/24 23:20 Source: patient Limitations: no limitations History of Present Illness ED Provider: Eri Culver PA-C HPI narrative: 49-year-old female with a history of ESRD on HD MWF last HD today not a full course completed 3 hours, anemia, substance abuse, seizures on keppra, HTN , who presents with a lab abnormalities. Patient was seen in the emergency department yesterday after having had a seizure while at dialysis. She was incidentally found to have a left arm abscess. She was discharged home. She was called back today secondary to positive blood cultures. Related Data Home Medications ?Medication ?Instructions ?Recorded ?Confirmed sevelamer carbonate 800 mg tablet 800 mg PO TIDWM 09/24/24 10/26/24 sodium zirconium cyclosilicate 10 10 g PO SUTUTHSA 09/24/24 10/26/24 gram oral powder packet (Lokelma) Previous Rx's ?Medication ?Instructions ?Recorded carvedilol 12.5 mg tablet 12.5 mg PO BID #60 tabs 10/28/24 hydralazine 25 mg tablet 25 mg PO TID #90 tabs 10/28/24 levetiracetam 500 mg tablet 500 mg PO BID #180 tabs 10/28/24 methadone 10 mg/mL oral 50 mg (5 mL) PO DAILY@0800 30 days 10/28/24 concentrate (Methadose) #30 mL nifedipine 30 mg tablet,extended 30 mg PO DAILY 9 days #90 tabs 10/28/24 release 24 hr cephalexin 500 mg capsule 500 mg PO BID #20 caps 11/09/24 doxycycline hyclate 100 mg tablet 100 mg PO BID #20 tabs 11/09/24 ibuprofen 600 mg tablet 600 mg PO TID PRN fever or pain 11/09/24 #30 tabs levetiracetam 500 mg tablet 500 mg PO BID #60 tabs 11/09/24 (Keppra) Allergies Allergy/AdvReac Type Severity Reaction Status Date / Time No Known Allergies Allergy Verified 11/10/24 20:24 Review of Systems 2 Review of Systems: Yes all other systems are reviewed and are negative Constitutional: Constitutional: Denies fatigue and Denies fever(s) Cardiovascular: Cardiovascular: Denies chest pain and Denies dyspnea Respiratory: Respiratory: Denies cough and Denies dyspnea Gastrointestinal: Gastrointestinal: Denies abdominal pain, Denies nausea and Denies vomiting Endocrine: Endocrine: Denies fatigue [facility] Past Medical History Attestation statement: The following information was validated with the patient. Medical History Hypertension, uncontrolled Anemia due to chronic kidney disease Medical non-compliance Norovirus Clostridioides difficile diarrhea Opioid use disorder ESRD (end stage renal disease) on dialysis Anemia HTN (hypertension) Drug abuse ESRD (end stage renal disease) Social History Social History Housing: House Do you presently have visiting nurse or other home services: No Alcohol intake: unknown Comment: pt refusing bed alarm Patient Tobacco Use Status: Tobacco use Unknown Smoked in Last 30 Days: No Use of substances other than those prescribed or required for medical reasons: No Substance Use Type: Crack/Cocaine and Heroin Advance Directives: Yes Advance Directives on File: Yes Advance Directives Date on File: 09/25/24 Do you have a plan to hurt others: No Plan service: No Physical Exam ED Vital Signs: Vital Signs - 24 hr 11/10/24 20:22 11/11/24 00:16 11/11/24 01:21 Temperature 98.8 F 98 F Pulse Rate 68 78 62 Respiratory Rate 18 15 18 Blood Pressure 164/98 H 202/107 H 186/104 H Pulse Oximetry 98 97 97 Oxygen Delivery Method Room Air Room Air Room Air BMI result Body Mass Index 19.2 Const Other: Alert Orientation/consciousness: patient oriented x3 Resp Effort & Inspection: normal respiratory effort Cardio Other: Normal peripheral perfusion Skin Other: Warm dry no rash Neuro General: patient oriented x3, gait normal, no focal motor deficits and CN's II- XI intact bilaterally Psych Other: Cooperative Course Course Course Narrative: This is a rapid medical exam performed by Nubia Downing NP: Additional HPI, ROS, PE not included below will be deferred to primary provider. Patient is a 49-year-old female with history of ESRD on HD, seizure, substance abuse presenting to the emergency department stating that she was here last night, had positive blood cultures, told to return today. Did not receive her pharmacy delivery of keppra today, has not taken since last night. Denies fevers today. Plan: repeat cultures, CBC, BMP, keppra ordered Reevaluation(s) Reevaluation #1: Potassium resulted high at 6.2, adding an EKG, giving Lokelma, calcium gluconate 2 g, albuterol 10 mg Reevaluation #2: Repeat potassium 5.6, Medications Administered Discontinued Medications Generic Name Dose Route Start Last Admin Trade Name Freq PRN Reason Stop Dose Admin Albuterol Sulfate 10 mg 11/10/24 23:40 11/11/24 00:11 Albuterol Sulfate (0.083%) 2.5 Mg/3 Ml Vial.Neb INHALE 11/10/24 23:41 10 mg ONCE ONE Administration Amlodipine Besylate 5 mg 11/11/24 00:38 11/11/24 00:49 Amlodipine Besylate 5 Mg Tablet PO 11/11/24 00:39 5 mg ONCE ONE Administration Protocol Carvedilol 12.5 mg 11/11/24 00:38 11/11/24 00:49 Carvedilol 12.5 Mg Tablet PO 11/11/24 00:39 12.5 mg ONCE ONE Administration Protocol Vancomycin HCl 1,500 mg/ 500 mls @ 333.333 mls/hr 11/10/24 23:20 11/10/24 23:55 Sodium Chloride IV 11/11/24 00:49 333.33 mls/hr ONCE ONE Administration Calcium Gluconate 2 gm in 100 mls @ 50 mls/hr 11/10/24 23:40 11/11/24 00:05 Calcium Gluconate IV 11/11/24 01:39 Infused ONCE ONE Infusion Levetiracetam 500 mg 11/10/24 20:25 11/10/24 21:13 Levetiracetam 500 Mg Tablet PO 11/10/24 20:26 500 mg ONCE ONE Administration Nifedipine 30 mg 11/11/24 00:38 11/11/24 01:20 Nifedipine Er 30 Mg Tab.Er.24 PO 11/11/24 00:39 30 mg ONCE ONE Administration Protocol Sodium Zirconium Cyclosilicate 10 gm 11/10/24 23:40 11/10/24 23:55 Sodium Zirconium Cyclosilicate 10 Gm Powd.Pack PO 11/10/24 23:41 10 gm ONCE ONE Administration Procedures Procedure Narrative Procedure Narrative: Ultrasound-guided IV 18 gauge 1-3/4 inch IV placed in left upper extremity, adequate blood return, flushes well secured with Tegaderm Medical Decision Making Medical Decision Making MDM Narrative: 49-year-old female with a history of ESRD on HD MWF last HD today not a full course completed 3 hours, anemia, substance abuse, seizures on keppra, HTN , who presents with a lab abnormalities. Patient was seen in the emergency department yesterday after having had a seizure while at dialysis. She was incidentally found to have a left arm abscess. She was discharged home. She was called back today secondary to positive blood cultures. Problem: End-stage renal, known abscess, seizure disorder History: Per patient I have considered the following differential diagnoses: positive blood cx that is contaminated Plan: Cultures return positive, but they appear contaminated, repeated screening labs including a set of blood cultures, starting vancomycin for her abscess. She is stable and afebrile. She can not have IV fluids secondary to end-stage renal disease, she does not make urine. I have independently reviewed the following tests: Labs: Leukocytosis, stable anemia, potassium 6.2, repeat potassium 5.6, creatinine 8.84, lactic 0.7, no additional electrolyte abnormalities EKG: Sinus bradycardia, rate of 57, no ischemic changes no ectopy QTC 445, no hyperacute T-waves Lab Data 11/10/24 22:17 11/11/24 01:27 Labs: Lab Results 11/10/24 11/11/24 Range/Units 22:17 01:27 WBC 10.3 (4.8-10.8) X10*3/uL RBC 2.82 L (4.20-5.50) X10*6/uL Hgb 8.6 L (12.0-16.0) g/dl Hct 26.4 L (37.0-47.0) % MCV 93.6 (80.0-98.0) fL MCH 30.5 (27.0-33.0) pg MCHC 32.6 (31.0-35.0) g/dl RDW 14.2 (11.0-16.0) % Plt Count 259 D (160-400) X10*3/uL MPV 9.6 (9.4-12.3) fL Immature Gran % (Auto) 0.5 H (0.0-0.4) % Neut % (Auto) 80.2 H (45-73) % Lymph % (Auto) 11.6 L (20-40) % Mcpherson % (Auto) 6.2 (2-11) % Eos % (Auto) 0.9 (0-4) % Baso % (Auto) 0.6 (0-2) % Lymph # (Auto) 1.2 (1.2-4.9) X10*3/uL Mcpherson # (Auto) 0.6 (0.1-1.2) X10*3/uL Eos # (Auto) 0.1 (0.0-0.4) X10*3/uL Baso # (Auto) 0.1 (0.0-0.2) X10*3/uL Abs Immat Gran (auto) 0.05 H (0.00-0.03) X10*3/uL Absolute Neuts (auto) 8.3 (2.0-8.3) x10*3/uL Absolute Nucleated RBC 0.000 (0.0-0.012) X10*3/uL Nucleated RBC % (auto) 0.0 (0.0-0.2) /100WBC ESR 51 H (0-20) MM/HR Sodium 135 137 (135-145) mmol/L Potassium 6.2 H* D 5.6 H (3.3-5.1) mmol/L Chloride 97 98 (96-108) mmol/L Carbon Dioxide 24 24 (22-29) mmol/L Anion Gap 20 21 H (12-20) BUN 45 H 45 H (9-16) mg/dL Creatinine 8.84 H* 8.88 H* (0.5-1.4) mg/dL Estim Creat Clear Calc 5.8 5.7 Estimated GFR 5 5 Random Glucose 75 81 (60-115) mg/dL Lactic Acid 0.7 (0.5-2.0) mmol/L Calcium 8.9 9.5 D (8.4-10.2) mg/dL Total Bilirubin 0.4 (0.0-1.0) mg/dL AST 24 (5-31) U/L ALT 7 (0-31) U/L Alkaline Phosphatase 120 H (39-117) U/L C-Reactive Protein 6.31 H (< or = 0.50) mg/dL Total Protein 6.2 L (6.5-8.0) g/dL Albumin 3.3 L (3.5-5.0) g/dL Critical Care Time Critical Care Time Critical Care Time: Yes Total Critical Care Time: 30 Attestation: I Eri Culver PA-C have a personally performed 30 minutes of critical care time not including lines and procedures Discharge Plan Discharge Clinical Impression: Acute hyperkalemia, Abscess of left arm Patient Disposition: Admitted As Inpatient Print Language: Serbian
--- OUTSIDE RECORDS SUMMARY | 2024-11-10 20:48 | XMS_ITS | Clinical Summary ---
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 Herpes simplex 08/22/2021 Encounters Date Type Department Care Team Description 10/21/2024 Treatment [facility] [address] [place] [phone] Raoul Dooley MD End stage renal disease; Dependence on renal dialysis; Amyloidosis 10/13/2024 [facility] in Dialysis Clinic [facility] [address] [place] [phone] Raoul Dooley MD 10/12/2024 Treatment [facility] [address] [phone] Raoul Dooley MD End stage renal disease; Dependence on renal dialysis; Amyloidosis 10/12/2024 Office Communication [facility] [address] [phone] Raoul Dooley MD 09/14/2024 Treatment [facility] [address] [phone] Raoul Dooley MD 09/07/2024 Treatment [facility] [address] [phone] Raoul Dooley MD 08/29/2024 Treatment [facility] [address] [phone] Raoul Dooley MD 08/26/2024 Orders Only [facility] [address] [phone] Raoul Dooley MD 08/26/2024 Treatment [facility] [address] [phone] Raoul Dooley MD 08/24/2024 Treatment [facility] [address] [phone] Drake Alas MD 08/23/2024 Treatment [facility] [address] [phone] Raoul Dooley MD from Last 3 Months [...] 3:00 AM EDT Raoul Dooley MD LAB [id number] SOLICITED RESULTS Final Result [facility] [address] [place] [address] * [facility] (10/31/2024 3:00 AM EDT) Only the most recent of13 resultswithin the time period is included. Lipemia Normal Normal [facility] Icterus Normal Normal [facility] Hemolysis Normal Normal [facility] 10/31/2024 3:00 AM EDT 11/03/2024 1:46 PM EDT Raoul Dooley MD LAB [id number] SOLICITED RESULTS Final Result Performing Organization Address [facility]/ZIP Co de Phone Number [facility] [address] [place] [address] * (ABNORMAL) Kt/V Natural Log, URR (10/31/2024 [...] 12:38 PM EDT Raoul Dooley MD LAB [id number] SOLICITED RESULTS Final Result Performing Organization Address [facility] de Phone Number [facility] [address] [place] [address] * (ABNORMAL) Calcium Phosphorus Product, Adjusted (10/31/2024 [...] 1:46 PM EDT Raoul Dooley MD LAB [id number] SOLICITED RESULTS Final Result Performing Organization Address [facility] Co de Phone Number [facility] [address] [place] [address] * Hepatitis B Surface Ag w/Reflex Confirmation (10/31/2024 3:00 AM EDT) Only the most recent of3 resultswithin the time period is included. Hep B Surface Antigen Negative Negative [facility] 10/31/2024 3:00 AM EDT 11/03/2024 1:46 PM EDT Raolu Dooley MD LAB BLOOD ORDERABLES Final Re sult Performing Organization Address [facility] de Phone Number [facility] [address] [place] [address] * (ABNORMAL) TSAT (10/31/2024 3:00 AM EDT) [...] ORDERABLES Final Re sult Performing Organization Address [facility] de Phone Number [facility] [address] [place] [address] * (ABNORMAL) CBC and Differential (10/31/2024 3:00 AM EDT) Only the most recent of3 resultswithin the time period is included. Pathologist [facility] DIFFERENTIAL MANUAL, 2 Not Indicated [facility] White [...] Final Re sult [facility] [address] [place] [address] * ALT (10/31/2024 3:00 AM EDT) Only the most recent of3 resultswithin the time period is included. [facility] ALT (SGPT) 47 10 - 49 U/L [facility] 10/31/2024 3:00 AM EDT 11/03/2024 1:46 PM EDT Raoul Dooley MD LAB BLOOD ORDERABLES Final Re sult Performing Organization Address [facility] Co de Phone Number [facility] [address] [place] [address] * AST (10/31/2024 3:00 AM EDT) Only the most recent of3 resultswithin the time period is included. AST (SGOT) 16 <34 U/L [facility] 10/31/2024 3:00 AM EDT 11/03/2024 1:46 PM EDT Raoul Dooley MD LAB BLOOD ORDERABLES Final Re sult Performing Organization Address [facility] de Phone Number [facility] [address] [place] [address] * Protein, total (10/31/2024 3:00 AM EDT) Only the most recent of3 resultswithin the time period is included. Total Protein 6.6 6.4 - 8.9 g/dL [facility] 10/31/2024 3:00 AM EDT 11/03/2024 1:46 PM EDT Raoul Dooley MD LAB BLOOD ORDERABLES Final Re sult Performing Organization Address [facility] de Phone Number [facility] [address] [place] [address] * (ABNORMAL) Alkaline phosphatase (10/31/2024 3:00 AM EDT) Only the most recent of3 resultswithin the time period is included. Alkaline Phosphatase 166(H) 46 - 116 U/L [facility] 10/31/2024 3:00 AM EDT 11/03/2024 1:46 PM EDT us Raoul Dooley MD LAB BLOOD ORDERABLES Final Re sult Performing Organization Address [facility] Co de Phone Number [facility] [address] [place] [address] * PTH, Intact (10/31/2024 3:00 AM EDT) PTH, Intact 220 160 - 721 pg/mL [facility] Comment: Suggested (KDIGO) ESRD maintenance range is two to nine times the upper normal limit (80.1 pg/mL) for the laboratory. 10/31/2024 3:00 AM EDT 11/03/2024 1:46 PM EDT Raoul Dooley MD LAB BLOOD ORDERABLES Final Re sult Performing Organization Address [facility] Co de Phone Number [facility] [address] [place] [address] * Magnesium (10/31/2024 3:00 AM EDT) Only the most recent of3 resultswithin the time period is included. Magnesium 1.9 1.9 - 2.7 mg/dL [facility] 10/31/2024 3:00 AM EDT 11/03/2024 1:46 PM EDT Raoul Dooley MD LAB BLOOD ORDERABLES Final Re sult Performing Organization Address [facility] de Phone Number [facility] [address] [place] [address] * (ABNORMAL) Lactate dehydrogenase (10/31/2024 3:00 AM EDT) Only the most recent of3 resultswithin the time period is included. LDH 378(H) 120 - 246 U/L [facility] 10/31/2024 3:00 AM EDT 11/03/2024 1:46 PM EDT Raoul Dooley MD LAB BLOOD ORDERABLES Final Re sult Performing Organization Address [facility] de Phone Number [facility] [address] [place] [address] * Glucose, random (10/31/2024 3:00 AM EDT) Only the most recent of3 resultswithin the time period is included. Glucose 95 74 - 109 mg/dL [facility] 10/31/2024 3:00 AM EDT 11/03/2024 1:46 PM EDT Raoul Dooley MD LAB BLOOD ORDERABLES Final Re sult Performing Organization Address [facility] de Phone Number [facility] [address] [place] [address] * (ABNORMAL) Ferritin (10/31/2024 3:00 AM EDT) Only the most recent of3 resultswithin the time period is included. Ferritin 1,226(H) 10 - 291 ng/mL [facility] 10/31/2024 3:00 AM EDT 11/03/2024 1:46 PM EDT Raoul Dooley MD LAB BLOOD ORDERABLES Final Re sult Performing Organization Address [facility] de Phone Number [facility] [address] [place] [address] * (ABNORMAL) Creatinine, serum (10/31/2024 3:00 AM EDT) Only the most recent of3 resultswithin the time period is included. Creatinine 8.13(H) 0.55 - 1.02 mg/dL [facility] 10/31/2024 3:00 AM EDT 11/03/2024 1:46 PM EDT Raoul Dooley MD LAB BLOOD ORDERABLES Final Re sult Performing Organization Address [facility] de Phone Number [facility] [address] [place] [address] * (ABNORMAL) Bilirubin, total (10/31/2024 3:00 AM EDT) Only the most recent of3 resultswithin the time period is included. Total Bilirubin <0.2(L) 0.3 - 1.2 mg/dL [facility] 10/31/2024 3:00 AM EDT 11/03/2024 1:46 PM EDT us Raoul Dooley MD LAB BLOOD ORDERABLES Final Re sult Performing Organization Address [facility] de Phone Number [facility] [address] [place] [address] * (ABNORMAL) Lipid panel (10/31/2024 3:00 AM [...] ORDERABLES Final Re sult Performing Organization Address [facility] de Phone Number [facility] [address] [place] [address] * (ABNORMAL) Electrolyte panel (10/31/2024 3:00 AM [...] ORDERABLES Final Re sult Performing Organization Address [facility] de Phone Number [facility] [address] [place] [address] * (ABNORMAL) Hemoglobin (10/21/2024 3:00 AM EDT) Only the most recent of4 resultswithin the time period is included. Hgb 7.3(L) 11.2 - 15.7 g/dL [facility] Hemoglobin x 3 21.9(L) 33.6 - 47.1 g/dL [facility] 10/21/2024 3:00 AM EDT 10/22/2024 1:23 PM EDT Raoul Dooley MD LAB BLOOD ORDERABLES Final Re sult Performing Organization Address [facility] de Phone Number [facility] [address] [place] [address] * (ABNORMAL) Phosphorus (09/14/2024 3:00 AM EST) Only the most recent of2 resultswithin the time period is included. Phosphorus, Serum 10.9(H) 2.5 - 5.0 mg/dL [facility] 09/14/2024 3:00 AM EST 09/16/2024 1:21 PM EST Raoul Dooley MD LAB BLOOD ORDERABLES Final Re sult Performing Organization Address City/[facility]/ZIP Co de Phone Number [facility] [address] [place] [address] * Potassium (08/26/2024 3:00 AM EST) Only the most recent of6 resultswithin the time period is included. Potassium 4.6 3.4 - 5.0 mEq/L [facility] 08/26/2024 3:00 AM EST 08/29/2024 1:08 PM EST Raoul Dooley MD LAB BLOOD ORDERABLES Final Re sult Performing Organization Address [facility] Co de Phone Number [facility] [address] [place] [address] from Last 3 Months [place]
[2024-11-10] MEDS: levETIRAcetam 500 MG TABLET PO (21:13)
--- NOTE | 2024-11-10 21:15 | PC.NURSE ---
attempt for iv access/to obtain labs without success, pt states shes a difficult stick and always requires u/s iv. Twyla CHARLES made aware. pt medicated per mar with po keppra as missed dose today. placed on cardiac monitoring. seizure precautions in place. nad at this time. call winkler within reach.
--- NOTE | 2024-11-10 22:20 | PC.NURSE ---
u/s iv obtained by Twyla CHARLES and labs obtained. only able to obtain 1 set of blood cultures at this time, awaiting primary eval by ed provider. call winkler within reach.
[2024-11-10 22:28] LABS: MANUAL DIFF FLAG NO
[2024-11-10 22:30] LABS: Basophils Absolute Auto 0.1 X10*3/uL (0.0-0.2); Basophils Percent Auto 0.6 % (0-2); Eosinophils Absolute Auto 0.1 X10*3/uL (0.0-0.4); Eosinophils Percent Auto 0.9 % (0-4); Hematocrit 26.4 % (37.0-47.0); Hemoglobin 8.6 g/dl (12.0-16.0); Imm Gran Abs Auto 0.05 X10*3/uL (0.00-0.03); Imm Gran Pct Auto 0.5 % (0.0-0.4); Lymphocytes Absolute Auto 1.2 X10*3/uL (1.2-4.9); Lymphocytes Percent Auto 11.6 % (20-40); Mean Corpuscular HGB Conc 32.6 g/dl (31.0-35.0); Mean Corpuscular Hemoglobin 30.5 pg (27.0-33.0); Mean Corpuscular Volume 93.6 fL (80.0-98.0); Mean Platelet Volume 9.6 fL (9.4-12.3); Monocytes Absolute Auto 0.6 X10*3/uL (0.1-1.2); Monocytes Percent Auto 6.2 % (2-11); Neutrophils Absolute Auto 8.3 x10*3/uL (2.0-8.3); Neutrophils Percent Auto 80.2 % (45-73); Platelet Count 259 X10*3/uL (160-400); Red Blood Count 2.82 X10*6/uL (4.20-5.50); Red Cell Distribution Width 14.2 % (11.0-16.0); White Blood Count 10.3 X10*3/uL (4.8-10.8)
[2024-11-10 22:43] LABS: Lactic Acid 0.7 mmol/L (0.5-2.0)
[2024-11-10 23:04] LABS: Alanine Aminotransferase 7 U/L (0-31); Albumin Level 3.3 g/dL (3.5-5.0); Alkaline Phosphatase 120 U/L (39-117); Aspartate Amino Transferase 24 U/L (5-31); Bilirubin Total 0.4 mg/dL (0.0-1.0); Blood Urea Nitrogen 45 mg/dL (9-16); C Reactive Protein 6.31 mg/dL (< or = 0.50); Calcium 8.9 mg/dL (8.4-10.2); Creatinine Clr Calc Pharmacy 5.8; Estimated Glomerular Filt Rate 5; Glucose Random 75 mg/dL (60-115); Total Protein 6.2 g/dL (6.5-8.0)
[2024-11-10 23:07] LABS: Erythrocyte Sedimentation Rate 51 MM/HR (0-20)
[2024-11-10 23:40] LABS: Anion Gap 20 (12-20); Carbon Dioxide 24 mmol/L (22-29); Chloride 97 mmol/L (96-108); Potassium 6.2 mmol/L (3.3-5.1); Sodium 135 mmol/L (135-145)
--- NOTE | 2024-11-10 23:40 | ECG_ITS ---
Test Reason : ARRYTHMIA Blood Pressure : */* mmHG Vent. Rate : 57 BPM Atrial Rate : 57 BPM P-R Int : 112 ms QRS Dur : 82 ms QT Int : 458 ms P-R-T Axes : 34 -39 16 degrees QTcB Int : 445 ms Sinus bradycardia Left axis deviation Abnormal ECG When compared with ECG of 09-Nov-2024 14:52, No significant change was found Referred By: Eri Culver Electronically Signed By: MO DELEON MD
[2024-11-10] MEDS: Calcium Gluconate/NaCl,Iso-Osm 2 GM/100 ML PLAST..BAG IV (23:55)
[2024-11-10] MEDS: vancomycin HCL 1,500 MG in 0.9 % Sodium Chloride 500 ML 333.33 MG IV (23:55)
[2024-11-10] MEDS: Sodium Zirconium Cyclosilicate 10 GM POWD.PACK PO (23:55)
[2024-11-11] VITALS (11 sets, daily range): BP systolic 126–202; BP diastolic 67–107; PULSE 62–80; RESP 15–20; TEMP 36.5–37; O2SAT 95–98; BMI 19.5
--- NOTE | 2024-11-11 | PC.NURSE ---
turkey sandwich and water given per pt request and PA approval.
[2024-11-11] MEDS: Albuterol Sulfate (0.083%) 2.5 MG/3 ML VIAL.NEB 10 MG INHALE (00:11)
--- NOTE | 2024-11-11 00:24 | PC.NURSE ---
amrit CHARLES made aware of bp. calcium gluconate infused over 10 min per Amrit CHARLES verbal order.
--- NOTE | 2024-11-11 00:45 | PC.NURSE ---
supervisor pumping station notified nifedipine not available in pyxis, will bring down from M/T floor.
[2024-11-11] MEDS: amLODIPine Besylate 5 MG TABLET PO (00:49)
[2024-11-11] MEDS: carvediloL 12.5 MG TABLET PO ×2 (00:49→16:27)
--- NOTE | 2024-11-11 00:49 | PC.NURSE ---
2355 - pt given lokelma drink at bedside as pt refusing to drink now. multiple re encouraging attempts pt states not right now. PA aware.
[2024-11-11] MEDS: NIFEdipine ER 30 MG TAB.ER.24 PO ×2 (01:20→16:26)
--- NOTE | 2024-11-11 01:21 | PC.NURSE ---
pt refuses lokelma again.
[2024-11-11 02:00] LABS: Anion Gap 21 (12-20); Blood Urea Nitrogen 45 mg/dL (9-16); Calcium 9.5 mg/dL (8.4-10.2); Carbon Dioxide 24 mmol/L (22-29); Chloride 98 mmol/L (96-108); Creatinine Clr Calc Pharmacy 5.7; Estimated Glomerular Filt Rate 5; Glucose Random 81 mg/dL (60-115); Potassium 5.6 mmol/L (3.3-5.1); Sodium 137 mmol/L (135-145)
--- NOTE | 2024-11-11 02:58 | PC.NURSE ---
Cheri FRUIT OR NUT FARMER at bedside. while cleaning wound with iodine packing came out. per FRUIT [employer] NUT FARMER to apply nonstick and wrap wound and to watch for excessive bleeding. FRUIT [employer] NUT FARMER aware of BP. pt requesting sandwich and juice.
--- NOTE | 2024-11-11 03:05 | P.HPHOSP_ITS ---
History of Present Illness Date of Service: 11/11/24 Attending physician on admission: Festus Moran Chief Complaint: Positive Blood cultures Pt is a 49 yo female with past medical history end-stage renal disease on dialysis M, W, F, heroin abuse via IV/IM on methadone managed by JOANA ONEIL 10/18 completed po vanco, seizures, hypertension with hypertensive urgency presents to the emergency room after being told to return noting blood culture 1/2 drawn yesterday during previous ED visit was positive. Patient was treated 11/09 for witnessed seizure during dialysis after an episode of vomiting. Patient states that she has not been able to take her Keppra as she ran out. Patient missed at least 2 days of Keppra prior to dialysis. Patient has no recollection of the seizure. Lumbar spine MRI, thoracic spine MRI and cervical spine MRI were all negative for acute findings. In addition patient was found to have an abscess in the left upper arm due to IM injection of heroin as patient no longer has adequate veins to use. I and D of the abscess was done in the emergency department and was packed with iodoform. Patient eventually was stable for discharge as she had no further seizure activity and returned home. Pt was provided a prescription for doxycyline. Due to pharmacy delivery issues, pt had not yet started the doxycyline. One of two blood cultures drawn 11/09/24 positive for Gram-positive cocci in clusters. Possible contaminate? A new set of blood cultures were drawn today. Lactic acid 1.3, 0.7. CRP 6.31, ESR 51. Pt does not meet the requirement for SIRS as there is no Leukocytosis, left shift, Fever, tachycardia, Hypoxia or lactic acidosis. Patient denies any current nausea, vomiting, fever or chills. In the emergency department patient was started on vancomycin. Pt will also start zosyn 2.25 GMS BID. Other possible source of infection could be patient's PermCath. Patient has had this since March of 2024. Insertion site looks stable and clean. Patient has plans for an eventual fistula or graft but has not yet made the appointment for referral. An echo will also be ordered to rule out vegetation/endocarditis noting a faint murmur on exam. No other wounds found on exam. Patient's blood pressure is 199/100 and patient complaining of mild headache. Patient states she often has very high blood pressures and has been taking her antihypertensives regularly. In dialysis patient receives clonidine p.r.n.. Patient is due for dialysis 11/11. Clonidine ordered one time. Potassium 6.2. Pt received Lokelma 10 mgs and Calcium gluconate, 2GMS and K is now 5.6. Nephrology consulted to assist with coordinating dialysis. Patient is started on a renal diet. Patient's 1st seizure occurred early September 2024. Patient required emergent intubation due to unresponsiveness and length of seizure. Patient has not seen a neurologist as an outpatient but did have EEG testing. Patient runs out of her Keppra due to delivery issues from the pharmacy. Patient states she does not drive. Pt has been using heroin for over 10 years now and is not ready to stop. Pt is currently on methdone regimen via [facility]. Pt currently on 50 mgs daily. Her dose was rasied from 45 mgs about three weeks prior. Pt is asking for another increase. Pt informed that the day provider will need to reach out to [facility] for review but the 50 mgs will be ordered for 730 AM, pt's usual time of administration. Pt denies hx of HEP B, C and HIV. Pt denies hx of endocarditis. Patient being admitted for bacteremia, IV antibiotics, surgical and wound consult for the left upper arm abscess and dialysis. Review of Systems 2 Review of Systems: Patient reports a mild frontal headache 3/10, denies any chest pain, shortness of breath at rest, nausea, vomiting, abdominal pain. Patient is experiencing pain in the left upper arm secondary to presence of abscess. Patient denies any limitations with range of motion or use of the left arm. Patient denies any fever, chills, night sweats. Yes all other systems are reviewed and are negative [facility] Medical History Hypertension, uncontrolled Anemia due to chronic kidney disease ESRD (end stage renal disease) on dialysis Medical non-compliance Norovirus Clostridioides difficile diarrhea Opioid use disorder Anemia HTN (hypertension) Drug abuse ESRD (end stage renal disease) Cognitive capacity: Alert and orientated x3 Functional capacity: independent ambulation Social History Housing: House Do you presently have visiting nurse or other home services: No Alcohol intake: unknown Comment: pt refusing bed alarm Patient Tobacco Use Status: Tobacco use Unknown Smoked in Last 30 Days: No Use of substances other than those prescribed or required for medical reasons: No Substance Use Type: Crack/Cocaine and Heroin Advance Directives: Yes Advance Directives on File: Yes Advance Directives Date on File: 09/25/24 Do you have a plan to hurt others: No Plan service: No Ebola Risk: Travel/Contact With Anyone From Affected Area/s: No Has Patient Experienced Ebola Symptoms: No Meds Allergies Allergy/AdvReac Type Severity Reaction Status Date / Time No Known Allergies Allergy Verified 11/10/24 20:24 Active Medications: Current Medications Acetaminophen (Acetaminophen 325 Mg Tablet) 650 mg PO Q6H PRN PRN Reason: Pain, Mild 1-3,fever,headache Heparin Sodium (Porcine) (Heparin Sodium,Porcine 5,000 Unit/Ml Vial) 5,000 unit SUBCUT Q12H ANNA MARIE Piperacillin Sod/Tazobactam (Sod 4.5 gm/ Sodium Chloride) 100 mls @ 200 mls/hr IV Q12H ANNA MARIE Magnesium Hydroxide (Milk Of Magnesia 30 Ml Oral.Susp) 30 ml PO DAILY PRN PRN Reason: Constipation Melatonin (Melatonin 3 Mg Tablet) 6 mg PO BEDTIME PRN PRN Reason: Insomnia Ondansetron HCl (Ondansetron Hcl 4 Mg/2 Ml Vial) 4 mg IVPUSH Q8H PRN PRN Reason: Nausea and Vomiting Pharmacy Consult (Consult Rx Vancomycin Dosing) 1 each MISCELLANE DAILY PRN PRN Reason: Consult order Sodium Chloride (0.9 % Sodium Chloride Flush 3 Ml Syringe) 3 ml IVFLUSH QSHIFT [facility] Home Medications ?Medication ?Instructions ?Recorded ?Confirmed ?Last Taken ?Type sevelamer carbonate 800 mg tablet 800 mg PO TIDWM 09/24/24 10/26/24 10/11/24 History sodium zirconium cyclosilicate 10 10 g PO SUTUTHSA 09/24/24 10/26/24 10/11/24 History gram oral powder packet (Lokelma) Physical Exam 2 Vital Signs and Narrative: Vital Signs: Last Vital Signs Temp 98 F 11/11/24 00:16 Pulse 62 11/11/24 01:21 Resp 18 11/11/24 01:21 BP 186/104 H 11/11/24 01:21 Pulse Ox 97 11/11/24 01:21 O2 Del Method Room Air 11/11/24 01:21 BMI result Body Mass Index 19.2 Alert and orientated X3, able to give good history. Cooperaitve. Neuro: CN II-X11 intact, no deficits, visual acuity intact EYES: PERRLA, EOM intact ENT: hearing intact, no issues with swallowing, uvula midline, lips dry, nares patent no epistaxis Cardiac: S1 S2 RRR, faint systolic murmur, no JVD, trace edema in Lower ext Pulmonary: lungs clear to auscultation B Abdominal: BS active in all 4 quadrants, no guarding, tenderness, rebounding, no hepatomegaly MSK: strength 5/5 upper and lower extremities : no CVA tenderness no bladder distension Extremities: trace edema in lower extremities, PT and DP pulses palpable +2 Psych: mood stable, judgement and insight good skin: 2.5 inch circumferential abscess DINESH wity ecchymosis, bruising and small amount of bloody oozing from wick site. Drainage on dressing was moderate and purulent. Multiple tattoos. PERM CATH site appears clean and dry. Results Labs 11/10/24 22:17 11/11/24 01:27 Labs: Laboratory Results - last 24 hr 11/10/24 11/11/24 22:17 01:27 MCV 93.6 MCH 30.5 MCHC 32.6 RDW 14.2 Plt Count 259 D MPV 9.6 Immature Gran % (Auto) 0.5 H Neut % (Auto) 80.2 H Lymph % (Auto) 11.6 L Carbon % (Auto) 6.2 Eos % (Auto) 0.9 Baso % (Auto) 0.6 Lymph # (Auto) 1.2 Carbon # (Auto) 0.6 Eos # (Auto) 0.1 Baso # (Auto) 0.1 Abs Immat Gran (auto) 0.05 H Absolute Neuts (auto) 8.3 Absolute Nucleated RBC 0.000 Nucleated RBC % (auto) 0.0 ESR 51 H Anion Gap 20 21 H Estim Creat Clear Calc 5.8 5.7 Estimated GFR 5 5 Random Glucose 75 81 Lactic Acid 0.7 Calcium 8.9 9.5 D Total Bilirubin 0.4 AST 24 ALT 7 Alkaline Phosphatase 120 H C-Reactive Protein 6.31 H Total Protein 6.2 L Albumin 3.3 L ECG Prior ECG tracings: not available for review Assessment and Plan (1) Bacteremia: Status: Acute (2) Abscess of left arm: Status: Acute (3) Acute hyperkalemia: Status: Acute (4) Hypertension, uncontrolled: Status: Acute (5) Substance abuse: Status: Acute (6) ESRD (end stage renal disease) on dialysis: Status: Acute (7) Anemia due to chronic kidney disease: Qualifiers: Chronic kidney disease stage: on chronic dialysis Qualified Code(s): N 18.6 - End stage renal disease; D63.1 - Anemia in chronic kidney disease; Z99.2 - Dependence on renal dialysis Status: Acute (8) Seizure: Status: Acute Plan Pt is a 49 yo female with past medical history end-stage renal disease on dialysis M, W, F, heroin abuse via IV/IM on methadone managed by JOANA ONEIL 10/18 completed po vanco, seizures, hypertension with hypertensive urgency was asked to return to the emergency department for 1 of 2 blood cultures positive for g positive cocci in clusters. Patient has a known left upper arm abscess from IV/IM drug use. Patient also has a PermCath. Patient being admitted for bacteremia with the following plan: Bacteremia/ Abscess DINESH secondary to IV/IM drug use -source likely left upper arm abscess, patient also has a PermCath that is been in since March of 2024 -echo ordered to rule out endocarditis noting faint systolic murmur on exam -IV vanco and Zosyn prescribed, Zosyn renal adjusted upon review with pharmacy -New set of blood cultures drawn today -ID consulted -Low threshold to administer additional fluids as patient is oliguric secondary to end-stage renal disease. LA WNL. -Tylenol for fever or pain related to left upper arm abscess -Wound care consulted, dressing care ordered in the interim -Surgical consult ordered for review of abscess for further I and D if needed Acute hyperkalemia/ESRD/anemia due to chronic kidney disease -nephrology consulted -patient received Lokelma 10 mg and calcium gluconate 2 g. Potassium down to 5.6. -telemetry -a.m. BMP -renal diet, patient is oliguric so fluid restriction of 1800 ordered -patient due for dialysis 11/11 -H&H stable at 8.6 and 26.4, Epogen per Nephrology Hypertension/ hypertensive urgency -patient received clonidine 0.2 mg x 1, hydralazine p.r.n. -prior patient received nifedipine, Coreg, and amlodipine in the emergency department -continue to monitor, telemetry, EKG -resume home meds once med rec is completed Substance abuse -patient has used IV and now IM heroin for the last 10 years -patient is on a methadone program at [facility], currently 50 mg per day. -patient requesting increase in her dose but this will need to be discussed with the [facility] provider on days -patient well-versed in the hazards associated with IV drug abuse including endocarditis, bacteremia, overdose, loss of life. Patient denies history of overdose or cardiac arrest. Patient denies having suicidal ideations. Patient offers that she is not ready to stop using and is not interested in addictions or rehab placement at this time. Seizures -Patient has continued her Keppra with no seizure activity since 11/09. Patient has had issues maintaining Keppra supply and has missed doses recently. -Seizure precautions -Neurology consult if indicated. Patient has had no follow-up since her original surgery early September of 2024. Patient is not clear who she will be following up with and whether she has a referral or not. -Patient does not currently drive DVT prophylaxis: Heparin subQ twice daily held for possible surgical intervention for left upper arm abscess Med rec pending Patient requires inpatient hospitalization for bacteremia and need for IV antibiotics. Patient requires expert consultation with Infectious Disease, surgery and Nephrology. Patient will require dialysis today. Total time managing care of this patient today: 45 minutes. Quality Stroke Does the patient have a stroke diagnosis?: No Reason for No Anti-thrombotic by Day Two: N/A - Med Ordered VTE Prior VTE?: No VTE Risk Level:: Medical - moderate - high VTE Device Contraindication: N/A - Device Ordered VTE Drug Contraindication: N/A - Med Ordered
[2024-11-11] MEDS: Heparin Sodium,Porcine 5,000 UNIT/ML VIAL 5000 UNIT SUBCUT (03:19)
[2024-11-11] MEDS: cloNIDine HCL 0.2 MG TABLET PO (03:19)
--- NOTE | 2024-11-11 03:21 | PC.NURSE ---
pt given apple juice per request and sunbutter/jelly sandwich as only availability. pt eating sandwich while requesting a different sandwich.
[2024-11-11] MEDS: Piperacillin Sodium/Tazobactam 2.25 GM in 0.9 % Sodium Chloride 50 ML IV (03:43)
--- NOTE | 2024-11-11 03:49 | PC.NURSE ---
found turkey sandwich per pt request, given 4th sandwich per request.
--- NOTE | 2024-11-11 04:08 | PC.NURSE ---
hold order placed on heparin after administration. FIELD TECH aware, no interventions per cloth bleaching range operator chief. warm blanket and juices given to pt per request.
--- NOTE | 2024-11-11 06:33 | PC.NURSE ---
pt refused for belongings to be searched. belongings list done to best of ability. pt denies having bailey/cards/cellphone on her. pt had an incontinent episode approx 0450, given belongings bag to put pants in. at this time while doing belongings list pt states she placed in dirty linen bin. bag is empty and pants are not there. pt stated well whatever i dont care.
--- NOTE | 2024-11-11 07:00 | CA_ITS ---
Transthoracic Echocardiogram Patient (Last, First, Middle): Simran Bolanos, Gender: Female Date of : 1975 Age: 49 Procedure Date: 11/11/2024 Procedure Type: Transthoracic Echocardiogram [place] [facility] [place]: 157.48 cm Weight: 47.63 kg BSA: 1.45 m2 Heart Rate: 72 bpm BP: 174 / 94 mmHg Legal Executive Assistant: TYRESE Referring MD: Cheri Arteaga [facility] Nurse Research: Jl Beltran MD Symptoms: rule out endocarditis, bactermia Study Quality: Adequate ECG Rhythm: Sinus Conclusions: - 1. Normal LV ejection fraction of 60 65% with grade 2 diastolic dysfunction 2. Moderately dilated left atrium 3. Mild mitral regurgitation 4. Mildly elevated right ventricular systolic pressure 5. No gross pericardial effusion 6. Vegetation can not be completely ruled out on this study Findings Left Ventricle Normal left ventricular size, thickness, and systolic function. The visually estimated ejection fraction is between 60-65%. Spectral Doppler is indicative of a pseudonormal filling pattern. E/E prime ratio is >15, consistent with elevated filling pressures. Evidence suggests grade II (moderate) diastolic dysfunction. Right Ventricle Normal right ventricular cavity size and systolic function. Atria The left atrium is moderately dilated. There is no evidence of interatrial shunt. The right atrium is mildly dilated. A catheter is noted in the right atrial cavity. Aortic Valve Normal aortic valve structure and function. There is no aortic valve stenosis. There is no aortic valve regurgitation. Mitral Valve There is mild anterior and posterior mitral leaflet thickening. There is mild mitral valve regurgitation. There is no mitral valve stenosis. string like structure attached to the posterior mitral leaflet most suggestive of ruptured cord and unlikely to be vegetation Pulmonic Valve The pulmonic valve was not well visualized. Tricuspid Valve Normal tricuspid valve structure. There is mild tricuspid valve regurgitation. Normal right atrial pressure. Mild pulmonary hypertension is present. Great Vessels All visible segments of the aorta are normal in size. The pulmonary artery was not well visualized. There is no dilatation of the ascending aorta measuring 2.90 cm. Venous The inferior vena cava is normal in size and collapses greater than 50% with inspiration. Pericardium/Pleural There is no evidence of pericardial effusion. Prior Study Comparison No prior study available for comparison. Recommendations, Care & Conclusions Consider a STORMY if clinically appropriate. Measurements 2D Linear Measurements IVSd: 1.06 0.6-0.9/0.6-1.0 cm LVIDd: 4.86 3.9-5.3/4.2-5.9 cm LVIDd Index: 3.35 2.4-3.2/2.2-3.1 cm/m2 LVPWd: 0.85 0.7-1.1 cm LA Diam: 4.00 2.7-3.8/3.0-4.0 cm LAIDs Index: 2.76 1.5-2.3 cm/m2 LV Mass: 203.32 67-162/88-224 g LV Mass Index: 140.22 43-95/49-115 g/m2 LVOT Diam: 2.00 3.0+(-)1.3 cm 2D Systolic Function EF 4C: 61.70 >55% EF 2C: 60.50 >55% EF BiP: 61.30 >55% Mitral Valve MV Pk E: 0.99 MV PK A: 0.85 MV Decel Time: 204.00 E/A: 1.20 E'Lateral: 5.22 E'Medial: 6.20 E/E' Med: 15.90 E/E' Lat: 18.90 PHT: 60.00 MVA PHT: 3.67 Decel [place]: 4.82 Aortic Valve AoV Pk Akshat: 1.35 AoV Pk Grad: 7.00 JEAN: 2.87 LVOT LVOT Pk Akshat: 1.17 LVOT Mn Akshat: 0.87 LVOT VTI: 0.26 LVOT Pk Grad: 5.00 LVOT Mn Grad: 3.00 LVOT Diam: 2.00 LVOT Area: 3.14 Diastolic Function MV Pk E: 0.99 MV Pk A: 0.85 E/A: 1.20 E'Medial: 6.20 E/E' Med: 15.90 E' Laterial: 5.22 E/E' Lat: 18.90 Right Ventricle TAPSE (mm): 24.00 TVS' Akshat: 12.20 Tricuspid Valve TR Pk Akshat: 3.10 TR Pk Grad: 38.00 RA Press: 3.00 RVSP: 41.00 Great Vessels Aorta Sinus of Valsalva: 2.90 2.0-3.5 cm Ao Asc: 2.90 2.1-3.4 cm Pulmonary Veins Pulm Vein S/D 1.30 Pulmonary Valve PV Pk Akshat: 0.76 Peak PV Grad: 2.00 Updated in Other Vendor System with Status of Final Jl Beltran MD electronically signed on 11/11/2024 9:34:10 AM with status of Final
[2024-11-11] MEDS: levETIRAcetam 500 MG TABLET PO ×2 (07:35→20:48)
[2024-11-11] MEDS: hydrALAZINE HCl 20 MG/ML VIAL 10 MG IVPUSH (07:35)
--- NOTE | 2024-11-11 08:13 | PHA.MEDREC ---
Pharmacy Consult ? Medication Reconciliation Pharmacy has completed the medication reconciliation.Med rec complete, spoke to patient, compared with pharmacy claim history and previous discharge summary from October 28 2024. Patient was just prescribed 2 antibiotics from ED but has not yet started.
[2024-11-11 09:03] LABS: CDiff Gene PCR POSITIVE (Negative)
[2024-11-11 09:27] LABS: CDiff Toxin Positive (Negative)
[2024-11-11 09:28] LABS: CDIFF Internal ctrl Dots and bkg OK (V)
--- NOTE | 2024-11-11 09:37 | MHC.CM.PN ---
Pt lives alone, she does not have a PCP, declined brochure, she said it was given to her the last time she was here. HCP is on file and confirmed, her sister Nica. She has a nurse from [facility] that come to her house daily to give her methadone. She goes to HD MWF at [facility]. She does not use DME. She will need assistance with transport home at [place]. DCP: home, resume services. CM to follow for DC needs.
--- NOTE | 2024-11-11 11:27 | HO.WOUND ---
Wound Consult: Initial 49yr old? female admitted to [facility] [place] on 11/11/24 - See progress notes and H&P for detailed history.? Wound consult placed for Left Upper Arm Absces site s/p I&D.? Patient agreeable to assessment and photo documentation.? Left Upper Arm Etiology: ?Abscess site S/P I&D ? Measurements: 0.1cm x 0.3cm unable to assess depth due to discomfort Wound Bed: unable to visualize Drainage / Odor: sangunous drainage - no purulence noted Edges: ? defined Penny wound: ? Red Erythema, Fluctuance and Warmth noted Pain: tenderness and pain with palpation Goals of Treatment: ? Drainage absorption Recommendations: 1. Left Upper Arm - Cleanse with Betadine allow to dry. Cover with Foam dressing and or dry gauze and ABD pad. Change daily and PRN for strike through drainage. Re-consult wound care Nurse for wound deterioration or wound changes.
--- NOTE | 2024-11-11 12:03 | HO.ADDICT_ITS ---
History of Present Illness Date of Service: 11/11/2024 Chief Complaint: bactermia Reason for Consult: OUD Sources of Information: patient interviewed and chart reviewed HPI Narrative: Patient is a 49 year old female with ESRD and OUD, medically admitted after being called in for + blood culture from abscess on arm. Patient known to t/w and ACS via previous admissions, at which time methadone doses were adjusted. Current methadone dose 50mg QD. Patient seen in room 486. She is resting comfortably upon approach, and wakes easily to voice. She states she has been feeling good on current dose of methadone. Has been going to dialysis. Denies any questions or concerns related to this--established with N and has VNA services as well Review of Systems Constitutional: Reports as per HPI, Reports no additional constitutional complaints and Reports lethargy Diagnostics Vital Signs (24Hr): Vital Signs - 24 hr 11/10/24 20:22 11/11/24 00:16 11/11/24 01:21 Temperature 98.8 F 98 F Pulse Rate 68 78 62 Respiratory Rate 18 15 18 Blood Pressure 164/98 H 202/107 H 186/104 H Pulse Oximetry 98 97 97 Oxygen Delivery Method Room Air Room Air Room Air 11/11/24 03:19 11/11/24 05:41 11/11/24 07:28 Temperature 98 F 97.7 F Pulse Rate 65 65 Respiratory Rate 16 16 Blood Pressure 199/105 H 153/79 H 174/94 H Pulse Oximetry 98 97 Oxygen Delivery Method Room Air Room Air 11/11/24 08:43 11/11/24 10:55 Temperature 98.6 F Pulse Rate 78 Respiratory Rate 16 Blood Pressure 164/87 H 126/67 Pulse Oximetry 95 Oxygen Delivery Method Room Air BMI result Body Mass Index 19.5 Labs 11/11/24 12:56 11/11/24 12:56 Labs: Laboratory Results - last 48 hr 11/10/24 11/11/24 11/11/24 22:17 01:27 06:40 WBC 10.3 RBC 2.82 L Hgb 8.6 L Hct 26.4 L MCV 93.6 MCH 30.5 MCHC 32.6 RDW 14.2 Plt Count 259 D MPV 9.6 Immature Gran % (Auto) 0.5 H Neut % (Auto) 80.2 H Lymph % (Auto) 11.6 L [place] % (Auto) 6.2 Eos % (Auto) 0.9 Baso % (Auto) 0.6 Lymph # (Auto) 1.2 [place] # (Auto) 0.6 Eos # (Auto) 0.1 Baso # (Auto) 0.1 Abs Immat Gran (auto) 0.05 H Absolute Neuts (auto) 8.3 Absolute Nucleated RBC 0.000 Nucleated RBC % (auto) 0.0 ESR 51 H Sodium 135 137 Potassium 6.2 H* D 5.6 H Chloride 97 98 Carbon Dioxide 24 24 Anion Gap 20 21 H BUN 45 H 45 H Creatinine 8.84 H* 8.88 H* Estim Creat Clear Calc 5.8 5.7 Estimated GFR 5 5 Random Glucose 75 81 Lactic Acid 0.7 Calcium 8.9 9.5 D Total Bilirubin 0.4 AST 24 ALT 7 Alkaline Phosphatase 120 H C-Reactive Protein 6.31 H Total Protein 6.2 L Albumin 3.3 L C. difficile Tox B Gene POSITIVE A* C. difficile Toxin A&B Positive A* C. difficile Interpret SEE NOTE Mental Status Exam Mental Status Exam Patient Appearance: Appropriate Level of Consciousness: Awake and Appropriate Patient Behavior: Appropriate Affect Description: Calm Speech Pattern: Clear Thought Process: Intact Thought Content: positive for Intact Judgement: Good Medications Medications Current Medications Acetaminophen (Acetaminophen 325 Mg Tablet) 650 mg PO Q6H PRN PRN Reason: Pain, Mild 1-3,fever,headache Heparin Sodium (Porcine) (Heparin Sodium,Porcine 5,000 Unit/Ml Vial) 5,000 unit SUBCUT Q12H [facility] Last Admin: 11/11/24 03:19 Dose: 5,000 unit Hydralazine HCl (Hydralazine Hcl 20 Mg/Ml Vial) 10 mg IVPUSH Q4H PRN; Protocol PRN Reason: SBP > 160 Last Admin: 11/11/24 07:35 Dose: 10 mg Vancomycin HCl 500 mg/ Sodium (Chloride) 110 mls @ 110 mls/hr IV Q24H [facility] Levetiracetam (Levetiracetam 500 Mg Tablet) 500 mg PO BID [facility] Last Admin: 11/11/24 07:35 Dose: 500 mg Magnesium Hydroxide (Milk Of Magnesia 30 Ml Oral.Susp) 30 ml PO DAILY PRN PRN Reason: Constipation Melatonin (Melatonin 3 Mg Tablet) 6 mg PO BEDTIME PRN PRN Reason: Insomnia Ondansetron HCl (Ondansetron Hcl 4 Mg/2 Ml Vial) 4 mg IVPUSH Q8H PRN PRN Reason: Nausea and Vomiting Pharmacy Consult (Consult Rx Vancomycin Dosing) 1 each MISCELLANE DAILY PRN PRN Reason: Consult order Sodium Chloride (0.9 % Sodium Chloride Flush 3 Ml Syringe) 3 ml IVFLUSH QSHIFT [facility] Last Admin: 11/11/24 07:39 Dose: Not Given Allergies Allergies Allergy/AdvReac Type Severity Reaction Status Date / Time No Known Allergies Allergy Verified 11/10/24 20:24 Assessment & Plan Assessment & Plan (1) Opioid use disorder: Status: Acute Code(s): F11.90 - Opioid use, unspecified, uncomplicated Assessment and Plan: * methadone dose verified and restarted * no concerns related to current dose --patient is not requesting dose adjustment * no follow up indicated at this time--please reconsult if needed. Total time managing care of this patient today __20__ minutes. PMF Past Medical History Medical History (Updated 11/11/24 @ 14:24 by Tran Guerrero CNP) Opioid use disorder Hypertension, uncontrolled Anemia due to chronic kidney disease ESRD (end stage renal disease) on dialysis Medical non-compliance Norovirus Clostridioides difficile diarrhea Anemia HTN (hypertension) Drug abuse ESRD (end stage renal disease) Social History Social History Household Members: Friend(s) Housing: Apartment Do you presently have visiting nurse or other home services: Yes Alcohol intake: unknown Comment: pt refusing bed alarm Patient Tobacco Use Status: Tobacco use Unknown Substance Use Type: Heroin Advance Directives Date on File: 09/25/24 service: No
[2024-11-11 13:08] LABS: MANUAL DIFF FLAG NO
[2024-11-11 13:11] LABS: Basophils Absolute Auto 0.1 X10*3/uL (0.0-0.2); Basophils Percent Auto 0.7 % (0-2); Eosinophils Absolute Auto 0.2 X10*3/uL (0.0-0.4); Eosinophils Percent Auto 1.4 % (0-4); Hematocrit 25.1 % (37.0-47.0); Hemoglobin 8.2 g/dl (12.0-16.0); Imm Gran Abs Auto 0.08 X10*3/uL (0.00-0.03); Imm Gran Pct Auto 0.7 % (0.0-0.4); Lymphocytes Percent Auto 8.3 % (20-40); Mean Corpuscular HGB Conc 32.7 g/dl (31.0-35.0); Mean Corpuscular Hemoglobin 30.4 pg (27.0-33.0); Mean Platelet Volume 9.6 fL (9.4-12.3); Monocytes Absolute Auto 0.7 X10*3/uL (0.1-1.2); Monocytes Percent Auto 5.6 % (2-11); Neutrophils Absolute Auto 10.2 x10*3/uL (2.0-8.3); Neutrophils Percent Auto 83.3 % (45-73); Platelet Count 242 X10*3/uL (160-400); Red Cell Distribution Width 14.5 % (11.0-16.0); White Blood Count 12.2 X10*3/uL (4.8-10.8)
--- NOTE | 2024-11-11 13:25 | P.CONGS_ITS ---
History of Present Illness Consult details Consult date: 11/11/24 <Frankie Fragoso PA-C - Last Filed: 11/11/24 13:51> Reason for consult: other (L upper extremity abscess) <Frankie Fragoso PA-C - Last Filed: 11/11/24 13:51> Narrative: 49-year old female seen in consult for evaluation of a left upper extremity abscess s/p incision and drainage. Patient has a history of IVDU and ESRD,She is currently admitted for positive blood cultures and the left arm abscess while been evaluated in the ED after a seizure while receiving dialysis. <Frankie Fragoso PA-C - Last Filed: 11/11/24 13:51> Review of Systems 2 Integumentary/Breasts: Comments: pain and bloody drainage from the I&D site, <Frankie Fragoso PA-C - Last Filed: 11/11/24 13:51> PMFSH Past Medical History Medical History: Medical History Opioid use disorder Hypertension, uncontrolled Anemia due to chronic kidney disease ESRD (end stage renal disease) on dialysis Medical non-compliance Norovirus Clostridioides difficile diarrhea Anemia HTN (hypertension) Drug abuse ESRD (end stage renal disease) <Frankie Fragoso PA-C - Last Filed: 11/11/24 13:51> Social History Social History: Social History Household Members: Friend(s) Housing: Apartment Do you presently have visiting nurse or other home services: Yes Alcohol intake: unknown Comment: pt refusing bed alarm and yellow fall socks Patient Tobacco Use Status: Current someday Tobacco user Substance Use Type: IV Drugs Advance Directives Date on File: 09/25/24 service: No <Frankie Fragoso PA-C - Last Filed: 11/11/24 13:51> Travel History Ebola Risk: Travel/Contact With Anyone From Affected Area/s: No <Frankie Fragoso PA-C - Last Filed: 11/11/24 13:51> Has Patient Experienced Ebola Symptoms: No <ARLIN Frances Last Filed: 11/11/24 13:51> Meds Allergies/Adverse reactions: Allergies Allergy/AdvReac Type Severity Reaction Status Date / Time No Known Allergies Allergy Verified 11/15/24 02:36 <Frankie Fragoso PA-C - Last Filed: 11/11/24 13:51> Active Medications: Current Medications Acetaminophen (Acetaminophen 325 Mg Tablet) 650 mg PO Q6H PRN PRN Reason: Pain, Mild 1-3,fever,headache Heparin Sodium (Porcine) (Heparin Sodium,Porcine 5,000 Unit/Ml Vial) 5,000 unit SUBCUT Q12H [facility] Last Admin: 11/11/24 03:19 Dose: 5,000 unit Hydralazine HCl (Hydralazine Hcl 20 Mg/Ml Vial) 10 mg IVPUSH Q4H PRN; Protocol PRN Reason: SBP > 160 Last Admin: 11/11/24 07:35 Dose: 10 mg Vancomycin HCl 500 mg/ Sodium (Chloride) 110 mls @ 110 mls/hr IV Q24H [facility] Levetiracetam (Levetiracetam 500 Mg Tablet) 500 mg PO BID [facility] Last Admin: 11/11/24 07:35 Dose: 500 mg Magnesium Hydroxide (Milk Of Magnesia 30 Ml Oral.Susp) 30 ml PO DAILY PRN PRN Reason: Constipation Melatonin (Melatonin 3 Mg Tablet) 6 mg PO BEDTIME PRN PRN Reason: Insomnia Ondansetron HCl (Ondansetron Hcl 4 Mg/2 Ml Vial) 4 mg IVPUSH Q8H PRN PRN Reason: Nausea and Vomiting Pharmacy Consult (Consult Rx Vancomycin Dosing) 1 each MISCELLANE DAILY PRN PRN Reason: Consult order Sodium Chloride (0.9 % Sodium Chloride Flush 3 Ml Syringe) 3 ml IVFLUSH QSHIFT [facility] Last Admin: 11/11/24 07:39 Dose: Not Given <Frankie Fragoso PA-C - Last Filed: 11/11/24 13:51> Home medications: Home Medications ?Medication ?Instructions ?Recorded ?Confirmed ?Last Taken ?Type sevelamer carbonate 800 mg tablet 800 mg PO TIDWM 09/24/24 11/15/24 11/13/24 History sodium zirconium cyclosilicate 10 10 g PO SUTUTHSA 09/24/24 11/15/24 11/13/24 History gram oral powder packet (Lokelma) <ARLIN Frances Last Filed: 11/11/24 13:51> Physical Exam 2 Vital Signs: Vital Signs: Last Vital Signs Temp 98.6 F 11/11/24 10:55 Pulse 78 11/11/24 10:55 Resp 16 11/11/24 10:55 BP 126/67 11/11/24 10:55 Pulse Ox 95 11/11/24 10:55 O2 Del Method Room Air 11/11/24 10:55 BMI result Body Mass Index 19.5 <Frankie Fragoso PA-C - Last Filed: 11/11/24 13:51> Const: General: cooperative and no acute distress <Frankie Fragoso PA-C - Last Filed: 11/11/24 13:51> Orientation/consciousness: patient oriented x3 <ARLIN Frances Last Filed: 11/11/24 13:51> Neuro: General: patient oriented x3 <ARLIN Frances Last Filed: 11/11/24 13:51> Extrem: Other: Dressing at left upper extremity at the site of I&D was removed exposing a small incision site. hematoma was expressed, not suggestive lingering fluctuance. Pain to palpation <Frankie Fragoso PA-C - Last Filed: 11/11/24 13:51> Left upper extremity: shoulder/upper arm <Frankie Fragoso PA-C - Last Filed: 11/11/24 13:51> Results Labs Result diagrams: 11/11/24 12:56 11/11/24 12:56 <Frankie Fragoso PA-C - Last Filed: 11/11/24 13:51> Labs: Abnormal lab results 11/10/24 11/11/24 11/11/24 Range/Units 22:17 01:27 06:40 WBC (4.8-10.8) X10*3/uL RBC 2.82 L (4.20-5.50) X10*6/uL Hgb 8.6 L (12.0-16.0) g/dl Hct 26.4 L (37.0-47.0) % Immature Gran % (Auto) 0.5 H (0.0-0.4) % Neut % (Auto) 80.2 H (45-73) % Lymph % (Auto) 11.6 L (20-40) % Lymph # (Auto) (1.2-4.9) X10*3/uL Abs Immat Gran (auto) 0.05 H (0.00-0.03) X10*3/uL Absolute Neuts (auto) (2.0-8.3) x10*3/uL ESR 51 H (0-20) MM/HR Potassium 6.2 H* D 5.6 H (3.3-5.1) mmol/L Anion Gap 21 H (12-20) BUN 45 H 45 H (9-16) mg/dL Creatinine 8.84 H* 8.88 H* (0.5-1.4) mg/dL Alkaline Phosphatase 120 H (39-117) U/L C-Reactive Protein 6.31 H (< or = 0.50) mg/dL Total Protein 6.2 L (6.5-8.0) g/dL Albumin 3.3 L (3.5-5.0) g/dL C. difficile Tox B Gene POSITIVE A* (Negative) C. difficile Toxin A&B Positive A* (Negative) 11/11/24 Range/Units 12:56 WBC 12.2 H (4.8-10.8) X10*3/uL RBC 2.70 L (4.20-5.50) X10*6/uL Hgb 8.2 L (12.0-16.0) g/dl Hct 25.1 L (37.0-47.0) % Immature Gran % (Auto) 0.7 H (0.0-0.4) % Neut % (Auto) 83.3 H (45-73) % Lymph % (Auto) 8.3 L (20-40) % Lymph # (Auto) 1.0 L (1.2-4.9) X10*3/uL Abs Immat Gran (auto) 0.08 H (0.00-0.03) X10*3/uL Absolute Neuts (auto) 10.2 H (2.0-8.3) x10*3/uL ESR (0-20) MM/HR Potassium (3.3-5.1) mmol/L Anion Gap (12-20) BUN (9-16) mg/dL Creatinine (0.5-1.4) mg/dL Alkaline Phosphatase (39-117) U/L C-Reactive Protein (< or = 0.50) mg/dL Total Protein (6.5-8.0) g/dL Albumin (3.5-5.0) g/dL C. difficile Tox B Gene (Negative) C. difficile Toxin A&B (Negative) Short CBC 11/10/24 11/11/24 Range/Units 22:17 12:56 WBC 10.3 12.2 H (4.8-10.8) X10*3/uL Hgb 8.6 L 8.2 L (12.0-16.0) g/dl Hct 26.4 L 25.1 L (37.0-47.0) % Plt Count 259 D 242 (160-400) X10*3/uL BMP 11/10/24 11/11/24 22:17 01:27 Sodium 135 137 Potassium 6.2 H* D 5.6 H Chloride 97 98 Carbon Dioxide 24 24 BUN 45 H 45 H Creatinine 8.84 H* 8.88 H* Calcium 8.9 9.5 D Liver Function 11/10/24 Range/Units 22:17 Total Bilirubin 0.4 (0.0-1.0) mg/dL AST 24 (5-31) U/L ALT 7 (0-31) U/L Alkaline Phosphatase 120 H (39-117) U/L Albumin 3.3 L (3.5-5.0) g/dL All other labs normal. <Frankie Fragoso PA-C - Last Filed: 11/11/24 13:51> Assessment and Plan (1) Traumatic hematoma of left upper arm: Status: Inactive <Frankie Fragoso PA-C - Last Filed: 11/11/24 13:51> 49-year old female seen in consult for evaluation of a left upper extremity abscess s/p incision and drainage. Patient has a history of IVDU and ESRD,She is currently admitted for positive blood cultures and the left arm abscess while been evaluated in the ED after a seizure while receiving dialysis. The site of the abscess was evaluated at bedside. dressing was removed exposing the incision site and a small hematoma was able to be expressed. The fluid was not suggestive of current infection drainage. At this time no surgical intervention is needed. Recommend daily dressing changes, and continuation of hospitalist plan. [facility] surgery signing off at this time, if there are changes to the quality of fluid, or infection is suspected please reach out for futher evaluation. <Frankie Fragoso PA-C - Last Filed: 11/11/24 13:51> 49-year old female seen in consult for evaluation of a left upper extremity abscess s/p incision and drainage. Patient has a history of IVDU and ESRD,She is currently admitted for positive blood cultures and the left arm abscess while been evaluated in the ED after a seizure while receiving dialysis. The site of the abscess was evaluated at bedside. dressing was removed exposing the incision site and a small hematoma was able to be expressed. The fluid was not suggestive of current infection drainage. At this time no surgical intervention is needed. Recommend daily dressing changes, and continuation of hospitalist plan. [facility] surgery signing off at this time, if there are changes to the quality of fluid, or infection is suspected please reach out for futher evaluation. As noted above <Storm Ragsdale MD - Last Filed: 11/11/24 14:16> Procedures Date of Service Date of Service: 11/11/24 <Frankie Fragoso PA-C - Last Filed: 11/11/24 13:51> 11/11/24 <Storm Ragsdale MD - Last Filed: 11/11/24 14:16> 11/18/24 <Deborah Pablo PA-C - Last Filed: 11/18/24 11:01>
[2024-11-11 13:38] LABS: Alanine Aminotransferase < 6 U/L (0-31); Albumin Level 2.8 g/dL (3.5-5.0); Anion Gap 15 (12-20); Aspartate Amino Transferase 17 U/L (5-31); Bilirubin Total 0.4 mg/dL (0.0-1.0); Blood Urea Nitrogen 49 mg/dL (9-16); Calcium 8.5 mg/dL (8.4-10.2); Carbon Dioxide 27 mmol/L (22-29); Chloride 100 mmol/L (96-108); Creatinine Clr Calc Pharmacy 5.8; Estimated Glomerular Filt Rate 5; Glucose Random 134 mg/dL (60-115); Potassium 5.4 mmol/L (3.3-5.1); Sodium 137 mmol/L (135-145); Total Protein 5.4 g/dL (6.5-8.0)
--- NOTE | 2024-11-11 13:40 | PM.EVENT ---
Event Note Date of Service: 11/11/24 Event Note: The patient admitted for evaluation of reported positive blood cultures Blood cx reporting GPC in stain in 1 bottle continue Vancomycin only C.Diff Ag tested positive. no diarrhea. hold on PO Vanco To do dialysis and restart home meds. Time Spent With Patient Time: Total time managing care of this patient today ____ minutes.
--- NOTE | 2024-11-11 13:42 | HE.PHANOTE ---
methadone confirmation form Patient gets meth[facility]. Last dose 11/10 @ [id number]
[2024-11-11 13:46] LABS: Vancomycin Random 65.1 mcg/mL (15-20)
--- NOTE | 2024-11-11 16:10 | PM.CNNEP ---
History of Present Illness Reason for Consult Consult date: 11/11/24 Chief Complaint Chief complaint: bactermia History of Present Illness Narrative: 49/female with past medical history end-stage renal disease on dialysis M, W, F, heroin abuse via IV/IM on methadone managed by JOANA ONEIL,, seizures, hypertension with hypertensive urgency presents to the emergency room after being told to return noting blood culture 1/2 drawn during previous ED visit was positive. h/o abscess in the left upper arm due to IM injection of heroin as patient no longer has adequate veins to use. PMFSH Past Medical History Medical History Opioid use disorder Hypertension, uncontrolled Anemia due to chronic kidney disease ESRD (end stage renal disease) on dialysis Medical non-compliance Norovirus Clostridioides difficile diarrhea Anemia HTN (hypertension) Drug abuse ESRD (end stage renal disease) Social History Social History Household Members: Friend(s) Housing: Apartment Do you presently have visiting nurse or other home services: Yes Alcohol intake: unknown Comment: pt refusing bed alarm Patient Tobacco Use Status: Tobacco use Unknown Substance Use Type: Heroin Advance Directives Date on File: 09/25/24 service: No Travel History Ebola Risk: Travel/Contact With Anyone From Affected Area/s: No Has Patient Experienced Ebola Symptoms: No Meds Allergies Allergy/AdvReac Type Severity Reaction Status Date / Time No Known Allergies Allergy Verified 11/10/24 20:24 Active Medications: Current Medications Acetaminophen (Acetaminophen 325 Mg Tablet) 650 mg PO Q6H PRN PRN Reason: Pain, Mild 1-3,fever,headache Carvedilol (Carvedilol 12.5 Mg Tablet) 12.5 mg PO BID [facility]; Protocol Heparin Sodium (Porcine) (Heparin Sodium,Porcine 5,000 Unit/Ml Vial) 5,000 unit SUBCUT Q12H [facility] Last Admin: 11/11/24 03:19 Dose: 5,000 unit Hydralazine HCl (Hydralazine Hcl 20 Mg/Ml Vial) 10 mg IVPUSH Q4H PRN; Protocol PRN Reason: SBP > 160 Last Admin: 11/11/24 07:35 Dose: 10 mg Vancomycin HCl 500 mg/ Sodium (Chloride) 110 mls @ 110 mls/hr IV Q24H [facility] Ibuprofen (Ibuprofen 600 Mg Tablet) 600 mg PO TID PRN PRN Reason: fever or pain Levetiracetam (Levetiracetam 500 Mg Tablet) 500 mg PO BID [facility] Last Admin: 11/11/24 07:35 Dose: 500 mg Magnesium Hydroxide (Milk Of Magnesia 30 Ml Oral.Susp) 30 ml PO DAILY PRN PRN Reason: Constipation Melatonin (Melatonin 3 Mg Tablet) 6 mg PO BEDTIME PRN PRN Reason: Insomnia Methadone HCl (Methadone Hcl 20 Mg/2 Ml Oral.Conc) 50 mg PO DAILY@0800 [facility] Nifedipine (Nifedipine Er 30 Mg Tab.Er.24) 30 mg PO DAILY [facility]; Protocol Ondansetron HCl (Ondansetron Hcl 4 Mg/2 Ml Vial) 4 mg IVPUSH Q8H PRN PRN Reason: Nausea and Vomiting Pharmacy Consult (Consult Rx Vancomycin Dosing) 1 each MISCELLANE DAILY PRN PRN Reason: Consult order Sevelamer Carbonate (Sevelamer Carbonate Tablet 800 Mg Tablet) 800 mg PO TIDWM [facility] Sodium Chloride (0.9 % Sodium Chloride Flush 3 Ml Syringe) [facility] Last Admin: 11/11/24 07:39 Dose: Not Given Sodium Zirconium Cyclosilicate (Sodium Zirconium Cyclosilicate 10 Gm Powd.Pack) [facility] Medications ?Medication ?Instructions ?Recorded ?Confirmed ?Last Taken ?Type sevelamer carbonate 800 mg tablet 800 mg PO TIDWM 09/24/24 11/11/24 10/11/24 History sodium zirconium cyclosilicate 10 10 g PO SUTUTHSA 09/24/24 11/11/24 10/11/24 History gram oral powder packet (Lokelma) Physical Exam Vital Signs: Last Vital Signs Temp 98.6 F 11/11/24 10:55 Pulse 78 11/11/24 10:55 Resp 16 11/11/24 10:55 BP 126/67 11/11/24 10:55 Pulse Ox 95 11/11/24 10:55 O2 Del Method Room Air 11/11/24 10:55 BMI result Body Mass Index 19.5 cvs: s1s2 rs; cta abd; soft Results Lab Results 11/11/24 12:56 11/11/24 12:56 Lab results: Chemistry 11/10/24 11/11/24 11/11/24 22:17 01:27 12:56 Sodium 135 137 137 Potassium 6.2 H* D 5.6 H 5.4 H Carbon Dioxide 24 24 27 BUN 45 H 45 H 49 H Creatinine 8.84 H* 8.88 H* 8.88 H* Calcium 8.9 9.5 D 8.5 D Hematology 11/10/24 11/11/24 22:17 12:56 WBC 10.3 12.2 H Hgb 8.6 L 8.2 L Plt Count 259 D 242 Assessment and Plan (1) ESRD (end stage renal disease) on dialysis: Status: Acute Plan ESRD on HD at [facility] followed by Dr Dooley presented with seizure nephrogenic anemia REC abx per primary team HD per schedule sodium zirconium as needed renal diet P binders LEONEL Procedures Date of Service Date of Service: 11/11/24
[2024-11-11] MEDS: methADONE HCl 20 MG/2 ML ORAL.CONC 50 MG PO (16:26)
[2024-11-11] MEDS: Sevelamer Carbonate Tablet 800 MG TABLET PO (16:26)
[2024-11-11] MEDS: 0.9 % Sodium Chloride Flush 3 ML SYRINGE IVFLUSH ×2 (16:27→20:48)
[2024-11-11 19:38] LABS: Alkaline Phosphatase 113 U/L (39-117)
--- NOTE | 2024-11-11 22:39 | P.CNID_ITS ---
History of Present Illness Data of Consult Service Date: 11/11/24 Requesting physician: Orlando Gonzalez Primary Care Provider: None Physician HPI Reason for consult: bacteremia She presents post seizure at hemodialysis. She also has left abscess arm after injecting opioids She has no fever or chills. She was discharged with po Doxycycline 100 mg bid but was called back by ER for bacteremia. She had 1/2 coagulase negative staph. Review of Systems 2 Review of Systems: Yes all other systems are reviewed and are negative PMFSH Past Medical History Medical History Opioid use disorder Hypertension, uncontrolled Anemia due to chronic kidney disease ESRD (end stage renal disease) on dialysis Medical non-compliance Norovirus Clostridioides difficile diarrhea Anemia HTN (hypertension) Drug abuse ESRD (end stage renal disease) Family History Family history: reviewed and not pertinent Social History Social History Household Members: Friend(s) Housing: Apartment Do you presently have visiting nurse or other home services: Yes Alcohol intake: unknown Comment: pt refusing bed alarm Patient Tobacco Use Status: Tobacco use Unknown Substance Use Type: Heroin Advance Directives Date on File: 09/25/24 service: No Travel History Ebola Risk: Travel/Contact With Anyone From Affected Area/s: No Has Patient Experienced Ebola Symptoms: No Meds Allergies Allergy/AdvReac Type Severity Reaction Status Date / Time No Known Allergies Allergy Verified 11/10/24 20:24 Active Medications: Current Medications Acetaminophen (Acetaminophen 325 Mg Tablet) 650 mg PO Q6H PRN PRN Reason: Pain, Mild 1-3,fever,headache Carvedilol (Carvedilol 12.5 Mg Tablet) 12.5 mg PO BID ANNA MARIE; Protocol Last Admin: 11/11/24 20:52 Dose: Not Given Heparin Sodium (Porcine) (Heparin Sodium,Porcine 5,000 Unit/Ml Vial) 5,000 unit SUBCUT Q12H ANNA MARIE Last Admin: 11/11/24 03:19 Dose: 5,000 unit Hydralazine HCl (Hydralazine Hcl 20 Mg/Ml Vial) 10 mg IVPUSH Q4H PRN; Protocol PRN Reason: SBP > 160 Last Admin: 11/11/24 07:35 Dose: 10 mg Vancomycin HCl 500 mg/ Sodium (Chloride) 110 mls @ 110 mls/hr IV Q24H [facility] Ibuprofen (Ibuprofen 600 Mg Tablet) 600 mg PO TID PRN PRN Reason: fever or pain Levetiracetam (Levetiracetam 500 Mg Tablet) 500 mg PO BID [facility] Last Admin: 11/11/24 20:48 Dose: 500 mg Magnesium Hydroxide (Milk Of Magnesia 30 Ml Oral.Susp) 30 ml PO DAILY PRN PRN Reason: Constipation Melatonin (Melatonin 3 Mg Tablet) 6 mg PO BEDTIME PRN PRN Reason: Insomnia Methadone HCl (Methadone Hcl 20 Mg/2 Ml Oral.Conc) 50 mg PO DAILY@0800 [facility] Last Admin: 11/11/24 16:26 Dose: 50 mg Nifedipine (Nifedipine Er 30 Mg Tab.Er.24) 30 mg PO DAILY [facility]; Protocol Last Admin: 11/11/24 16:26 Dose: 30 mg Ondansetron HCl (Ondansetron Hcl 4 Mg/2 Ml Vial) 4 mg IVPUSH Q8H PRN PRN Reason: Nausea and Vomiting Pharmacy Consult (Consult Rx Vancomycin Dosing) 1 each MISCELLANE DAILY PRN PRN Reason: Consult order Sevelamer Carbonate (Sevelamer Carbonate Tablet 800 Mg Tablet) 800 mg PO TIDWM [facility] Last Admin: 11/11/24 16:26 Dose: 800 mg Sodium Chloride (0.9 % Sodium Chloride Flush 3 Ml Syringe) 3 ml IVFLUSH [facility] Last Admin: 11/11/24 20:48 Dose: 3 ml Sodium Zirconium Cyclosilicate (Sodium Zirconium Cyclosilicate 10 Gm Powd.Pack) 10 gm PO SUTUTHSA [facility] Home Medications ?Medication ?Instructions ?Recorded ?Confirmed ?Last Taken ?Type sevelamer carbonate 800 mg tablet 800 mg PO TIDWM 09/24/24 11/11/24 10/11/24 History sodium zirconium cyclosilicate 10 10 g PO SUTUTHSA 09/24/24 11/11/24 10/11/24 History gram oral powder packet (Lokelma) Physical Exam 2 Vital Signs: Vital Signs: Last Vital Signs Temp 98.5 F 11/11/24 19:32 Pulse 67 11/11/24 19:32 Resp 20 11/11/24 19:32 BP 147/77 H 11/11/24 19:32 Pulse Ox 95 11/11/24 19:32 O2 Del Method Room Air 11/11/24 19:32 BMI result Body Mass Index 19.5 Extrem: Other: packed left arm wound,no serious cellulitis Results Labs 11/11/24 12:56 11/11/24 12:56 Labs: Short CBC 11/11/24 Range/Units 12:56 WBC 12.2 H (4.8-10.8) X10*3/uL Hgb 8.2 L (12.0-16.0) g/dl Hct 25.1 L (37.0-47.0) % Plt Count 242 (160-400) X10*3/uL BMP 11/10/24 11/11/24 11/11/24 22:17 01:27 12:56 Sodium 135 137 137 Potassium 6.2 H* D 5.6 H 5.4 H Chloride 97 98 100 Carbon Dioxide 24 24 27 BUN 45 H 45 H 49 H Creatinine 8.84 H* 8.88 H* 8.88 H* Calcium 8.9 9.5 D 8.5 D Liver Function 11/10/24 11/11/24 Range/Units 22:17 12:56 Total Bilirubin 0.4 0.4 (0.0-1.0) mg/dL AST 24 17 (5-31) U/L ALT 7 < 6 (0-31) U/L Alkaline Phosphatase 120 H 113 (39-117) U/L Albumin 3.3 L 2.8 L (3.5-5.0) g/dL Assessment and Plan (1) Opioid use disorder: Status: Acute (2) Traumatic hematoma of left upper arm: Status: Acute (3) ESRD (end stage renal disease) on dialysis: Status: Acute (4) Bacteremia: Status: Acute Plan Bacteremia is coagulase negative staph contaminant Stop Vancomycin Restart po Doxycycline.
[2024-11-11] MEDS: Doxycycline Monohydrate 100 MG CAPSULE PO (23:57)
[2024-11-12] VITALS: BP 149/72; PULSE 76; RESP 16; TEMP 36.8; O2SAT 96
[2024-11-12 03:19] VITALS: BP 140/67; PULSE 80; RESP 16; TEMP 37.2; O2SAT 95
[2024-11-12 06:00] VITALS: BMI 19.6
[2024-11-12 07:41] VITALS: BP 156/85; PULSE 67; RESP 17; TEMP 36.7; O2SAT 95
[2024-11-12 09:19] VITALS: BP 156/85; PULSE 67
[2024-11-12] MEDS: Sevelamer Carbonate Tablet 800 MG TABLET PO ×2 (09:19→12:27)
[2024-11-12] MEDS: methADONE HCl 20 MG/2 ML ORAL.CONC 50 MG PO (09:19)
[2024-11-12] MEDS: NIFEdipine ER 30 MG TAB.ER.24 PO (09:19)
[2024-11-12] MEDS: Doxycycline Monohydrate 100 MG CAPSULE PO (09:19)
[2024-11-12] MEDS: carvediloL 12.5 MG TABLET PO (09:19)
[2024-11-12] MEDS: levETIRAcetam 500 MG TABLET PO (09:19)
[2024-11-12] MEDS: 0.9 % Sodium Chloride Flush 3 ML SYRINGE IVFLUSH (09:20)
[2024-11-12] MEDS: Sodium Zirconium Cyclosilicate 10 GM POWD.PACK PO (09:35)
--- NOTE | 2024-11-12 11:23 | P.DS_ITS ---
DS: Providers Provider Date of Service: 11/12/24 Date of admission: 11/11/24 02:52 Date of discharge: 11/12/24 Primary care physician: None Physician Consults: 11/11/24 02:56 Consult to Infectious Diseases Routine Consulting Provider: [facility] Reason for consultation: Bacteremia Has provider been notified: No Consult to Wound Care Routine Reason for consultation: left upper arm abscess Has provider been notified: No 11/11/24 03:00 Consult to General Surgery Routine Consulting Provider: [facility] Reason for consultation: L upper arm abscess, IM site from IVDA Has provider been notified: No 11/11/24 03:06 Consult to Nephrology Routine Consulting Provider: [facility] Reason for consultation: ESRD need for dialysis Thursday hyperkalemia Has provider been notified: No 11/11/24 05:25 Addiction Medicine Provider Routine Consulting Provider: Addiction Covering Reason for consultation: heroin use 11/11/24 10:01 Inpt - Recovery Team Routine Comment: Reason for consultation: ARETHA eval DS: Diagnosis Discharge Diagnosis (1) ESRD (end stage renal disease) on dialysis: Status: Acute (2) Abscess of left arm: Status: Acute (3) Acute hyperkalemia: Status: Acute (4) Positive blood culture: Status: Acute DS: Summary Hospital Course Hospital Course: Admission note HPI Pt is a 49 yo female with past medical history end-stage renal disease on dialysis M, W, F, heroin abuse via IV/IM on methadone managed by JOANA ONEIL 10/18 completed po vanco, seizures, hypertension with hypertensive urgency presents to the emergency room after being told to return noting blood culture 1/2 drawn yesterday during previous ED visit was positive. Patient was treated 11/09 for witnessed seizure during dialysis after an episode of vomiting. Patient states that she has not been able to take her Keppra as she ran out. Patient missed at least 2 days of Keppra prior to dialysis. Patient has no recollection of the seizure. Lumbar spine MRI, thoracic spine MRI and cervical spine MRI were all negative for acute findings. In addition patient was found to have an abscess in the left upper arm due to IM injection of heroin as patient no longer has adequate veins to use. I and D of the abscess was done in the emergency department and was packed with iodoform. Patient eventually was stable for discharge as she had no further seizure activity and returned home. Pt was provided a prescription for doxycyline. Due to pharmacy delivery issues, pt had not yet started the doxycyline. One of two blood cultures drawn 11/09/24 positive for Gram-positive cocci in clusters. Possible contaminate? A new set of blood cultures were drawn today. Lactic acid 1.3, 0.7. CRP 6.31, ESR 51. Pt does not meet the requirement for SIRS as there is no Leukocytosis, left shift, Fever, tachycardia, Hypoxia or lactic acidosis. Patient denies any current nausea, vomiting, fever or chills. In the emergency department patient was started on vancomycin. Pt will also start zosyn 2.25 GMS BID. Other possible source of infection could be patient's PermCath. Patient has had this since March of 2024. Insertion site looks stable and clean. Patient has plans for an eventual fistula or graft but has not yet made the appointment for referral. An echo will also be ordered to rule out vegetation/endocarditis noting a faint murmur on exam. No other wounds found on exam. Patient's blood pressure is 199/100 and patient complaining of mild headache. Patient states she often has very high blood pressures and has been taking her antihypertensives regularly. In dialysis patient receives clonidine p.r.n.. Patient is due for dialysis 11/11. Clonidine ordered one time. Potassium 6.2. Pt received Lokelma 10 mgs and Calcium gluconate, 2GMS and K is now 5.6. Nephrology consulted to assist with coordinating dialysis. Patient is started on a renal diet. Patient's 1st seizure occurred early September 2024. Patient required emergent intubation due to unresponsiveness and length of seizure. Patient has not seen a neurologist as an outpatient but did have EEG testing. Patient runs out of her Keppra due to delivery issues from the pharmacy. Patient states she does not drive. Pt has been using heroin for over 10 years now and is not ready to stop. Pt is currently on methdone regimen via [facility] Pt currently on 50 mgs daily. Her dose was rasied from 45 mgs about three weeks prior. Pt is asking for another increase. Pt informed that the day provider will need to reach out to [facility] for review but the 50 mgs will be ordered for 730 AM, pt's usual time of administration. Pt denies hx of HEP B, C and HIV. Pt denies hx of endocarditis. Patient being admitted for bacteremia, IV antibiotics, surgical and wound consult for the left upper arm abscess and dialysis. Hospital course # Positive blood cultures. Turned to be contaminent as it grew CoAg negative staph. ID recommended to continue Doxycycline only on discharge. New set of blood cultures negative as the patient was kept on Vancomycin. Echo was done showing Normal LV ejection fraction of 60 65% with grade 2 diastolic dysfunction with no clear evidence of vegetations. # Acute hyperkalemia/ESRD. Had Lokelma and Dialysis session while inpatient with improvement on Potassium level. To follow with nephrology and continue her HD sessions as scheduled. # Hypertension/ hypertensive urgency. Better controlled with clonidine 0.2 mg x 1 and restarting her home medicaitons. To continue same home meds on discharge. To follow with nephrology for any further adjustment. # Substance abuse reported used IV and IM heroin for the last 10 years patient is on a methadone program at [facility] currently 50 mg per day. Patient offers that she is not ready to stop using and is not interested in addictions or rehab placement at this time. # Seizures continued her Keppra with no seizure activity since 11/09. Patient has had issues maintaining Keppra supply and has missed doses recently. Kept ton Seizure precautions. Advised to follow with neurology as outpatient. Discharge plan Continue Doxycycline as prescribed Follow with Dialysis as scheduled The patient made quicker than expected recovery and will not need 2 overnight hospital stay. Time Attestation Discharge Coordination Time (in mins): 38 Quality: Safe Use of Opioids Does Pt have an Active Cancer Diagnosis on the Problem List?: No Quality: Stroke Does the patient have a stroke diagnosis?: No Physical Exam Vital Signs: Vital Signs: Last Vital Signs Temp 98.1 F 11/12/24 07:41 Pulse 67 11/12/24 09:19 Resp 17 11/12/24 07:41 BP 156/85 H 11/12/24 09:19 Pulse Ox 95 11/12/24 07:41 O2 Del Method Room Air 11/12/24 07:41 BMI result Body Mass Index 19.6 Const: Other: Constitutional : Awake, interactive, not in distress Neck : Normal inspection, Supple Cardiovascular : RRR, no JVP, no lower extremity edema Respiratory : good bilateral air entry, no crackles, wheezes or rhonchi Gastrointestinal: soft, lax, Normal bowel sounds, Non tender Skin : Warm, Dry, LUE abscess area clean and covered with dressing Neurological : Alert & oriented x3, No focal deficit , DS: Data Data Completed and Pending Completed studies during hospitalization [Text1]: Procedures Insertion of Endotracheal Airway into Trachea, Via Natural or Artificial Opening (09/24/24) Insertion of Infusion Device into Upper Vein, Percutaneous Approach (09/24/24) Performance of Urinary Filtration, Intermittent, Less than 6 Hours Per Day (10/25/24) Respiratory Ventilation, 24-96 Consecutive Hours (09/24/24) Transfusion of Nonautologous Red Blood Cells into Peripheral Vein, Percutaneous Approach (10/25/24) Labs on day of discharge: Laboratory Results - last 24 hr 11/11/24 12:56 WBC 12.2 H RBC 2.70 L Hgb 8.2 L Hct 25.1 L MCV 93.0 MCH 30.4 MCHC 32.7 RDW 14.5 Plt Count 242 MPV 9.6 Immature Gran % (Auto) 0.7 H Neut % (Auto) 83.3 H Lymph % (Auto) 8.3 L Lyman % (Auto) 5.6 Eos % (Auto) 1.4 Baso % (Auto) 0.7 Lymph # (Auto) 1.0 L Lyman # (Auto) 0.7 Eos # (Auto) 0.2 Baso # (Auto) 0.1 Abs Immat Gran (auto) 0.08 H Absolute Neuts (auto) 10.2 H Absolute Nucleated RBC 0.000 Nucleated RBC % (auto) 0.0 Sodium 137 Potassium 5.4 H Chloride 100 Carbon Dioxide 27 Anion Gap 15 BUN 49 H Creatinine 8.88 H* Estim Creat Clear Calc 5.8 Estimated GFR 5 Random Glucose 134 H Calcium 8.5 D Total Bilirubin 0.4 AST 17 ALT < 6 Alkaline Phosphatase 113 Total Protein 5.4 L Albumin 2.8 L Random Vancomycin 65.1 H* Preliminary micro results at discharge 11/10/24 22:17 Blood Culture - Preliminary Blood - Venous No growth after 24 hours. Discharge Plan Discharge Anticipated Discharge Date/Time: 11/12/24 11:21 Patient Disposition: Home, Self-Care Discharge Diagnosis: Hyperkalemia positive blood culture need of ESRD Referrals: Physician,None [Primary Care Provider] - 1 Week Discharge Medications: Continued sevelamer carbonate 800 mg tablet 800 mg PO TIDWM Lokelma 10 gram powder in packet 10 g PO SUTUTHSA doxycycline hyclate 100 mg tablet 100 mg PO BID Qty: 20 0RF levetiracetam [Keppra] 500 mg tablet 500 mg PO BID Qty: 60 3RF ibuprofen 600 mg tablet 600 mg PO TID PRN (Reason: fever or pain) Qty: 30 0RF carvedilol 12.5 mg Tablet 12.5 mg PO BID Qty: 60 1RF Protocol: Hold for SBP/HR < HOLD for SBP < : 90 HOLD for HR < : 60 hydralazine 25 mg Tablet 25 mg PO TID Qty: 90 1RF Protocol: Hold for SBP< HOLD for SBP < : 90 methadone [Methadose] 10 mg/mL Concentrate 50 mg PO DAILY@0800 30 Days Qty: 30 0RF Rx Instructions: Partial Fill upon patient request. nifedipine 30 mg tablet extended release 24hr 30 mg PO DAILY 9 Days Qty: 90 0RF Discontinued cephalexin 500 mg capsule 500 mg PO BID Qty: 20 0RF Discharge Orders: Discharge Order (Routine); Ordered 11/12/24 Ordered By: Orlando Gonzalez Diet: Low salt diet Activity on Discharge: As tolerated Stand Alone Forms: Patient Portal Discharge page Print Language: Faroese Care Plan Goals: Continue Doxycycline as prescribed Follow with Dialysis as scheduled Health Concerns: Positive blood culture; no real blood infection, contaminent Plan of Treatment: Continue Doxycycline Assessment: as above
[2024-11-12 11:57] VITALS: BP 125/89; PULSE 77; RESP 17; TEMP 37.2; O2SAT 97
--- NOTE | 2024-11-12 12:16 | MHC.CM.PN ---
Addendum entered by Nichole Arriaza 11/12/24 16:18: PT ARRANGED HER OWN TRANSPORT Original Note: PT WILL DC HOME TODAY WITH [facility]UMPTION OF HD AND [facility] FOR DAILY METHADONE DELIVERY CM SPOKE TO [employer] [phone], THEY ARE AWARE OF DC DCS FAXED TO THEM AT [phone] PT WILL NEED [facility] TRANSPORT HOME
== END 2024-11-12 15:34 | disposition home or self-care (01) | DRG 383 ==
LOC: HO.ED 11-11 00:04 → HO.EDOVER 11-11 02:58 → HO.IMC 11-11 05:21
PROVIDERS: Physician Assistant Medical; Registered Nurse Emergency; Admitting Provider Nurse Practitioner Family; Emergency Provider Emergency Medicine; Visit Provider Student in an Organized Health Care Education/Training Program
DX: L02.414 Cutaneous abscess of left upper limb (principal); D63.1 Anemia in chronic kidney disease; I12.0 Hypertensive chronic kidney disease with stage 5 chronic kidney disease or end stage renal disease; I16.0 Hypertensive urgency; N18.6 End stage renal disease; E87.5 Hyperkalemia; F11.20 Opioid dependence, uncomplicated; Z99.2 Dependence on renal dialysis; F17.210 Nicotine dependence, cigarettes, uncomplicated; Z71.6 Tobacco abuse counseling; Z79.899 Other long term (current) drug therapy
CPT/HCPCS: 36415; 80048; 80053; 80202; 83605; 85025; 85652; 86140; 87040; 87324; 87493; 90999; 93005; 93306; 99285; J0360; J0613; J1644; J2543; J3371; S9485

== ENCOUNTER → 2024-11-10 23:40 | Outpatient (BNV) | payer MEDICAID, SELFPAY | PROVIDERS: Admitting Provider Nurse Practitioner Family; Emergency Provider Emergency Medicine; Visit Provider Internal Medicine Cardiovascular Disease | DX: R00.1 Bradycardia, unspecified (principal) | CPT/HCPCS: 93010 ==

== ENCOUNTER 2024-11-11 02:52 | Outpatient (BNV) | payer MEDICAID, SELFPAY | END 2024-11-11 07:00 | PROVIDERS: Admitting Provider Nurse Practitioner Family; Emergency Provider Emergency Medicine; Visit Provider Internal Medicine Cardiovascular Disease | DX: R78.81 Bacteremia (principal) | CPT/HCPCS: 93306 ==

== ENCOUNTER → 2024-11-11 02:52 | Outpatient (BNV) | payer MEDICAID, SELFPAY | PROVIDERS: Admitting Provider Nurse Practitioner Family; Emergency Provider Emergency Medicine; Visit Provider Nurse Practitioner Family | DX: N18.6 End stage renal disease (principal); Z99.2 Dependence on renal dialysis; L02.414 Cutaneous abscess of left upper limb; E87.5 Hyperkalemia; R78.81 Bacteremia | CPT/HCPCS: 99221; 99239; 99499 ==

== ENCOUNTER → 2024-11-11 02:52 | Outpatient (BNV) | payer OTHER, SELFPAY | PROVIDERS: Admitting Provider Nurse Practitioner Family; Emergency Provider Emergency Medicine; Visit Provider Nurse Practitioner Psychiatric/Mental Health | DX: F11.90 Opioid use, unspecified, uncomplicated (principal) | CPT/HCPCS: 99232 ==

== ENCOUNTER → 2024-11-11 02:52 | Outpatient (BNV) | payer MEDICAID, SELFPAY | PROVIDERS: Admitting Provider Nurse Practitioner Family; Emergency Provider Emergency Medicine | DX: S40.022A Contusion of left upper arm, initial encounter (principal) | CPT/HCPCS: 99222 ==

== ENCOUNTER → 2024-11-11 02:52 | Outpatient (BNV) | payer MEDICAID, SELFPAY | PROVIDERS: Admitting Provider Nurse Practitioner Family; Emergency Provider Emergency Medicine; Visit Provider Internal Medicine | DX: F11.90 Opioid use, unspecified, uncomplicated (principal); S40.022A Contusion of left upper arm, initial encounter; N18.6 End stage renal disease; Z99.2 Dependence on renal dialysis; R78.81 Bacteremia | CPT/HCPCS: 99222 ==

== ENCOUNTER 2024-11-15 02:30 | Inpatient (IN) | payer MEDICAID, SELFPAY ==
[2024-11-15] VITALS (18 sets, daily range): BP systolic 121–222; BP diastolic 77–162; PULSE 59–101; RESP 13–22; TEMP 36.3–37.1; O2SAT 97–100; BMI 18.3; BMI 42.7
--- NOTE | ~2024-11-15 | CT_ITS ---
CLINICAL HISTORY: Headache, HTN CT head without contrast Comparison: CT/SR - CT HEAD/BRAIN WO IV CON - 10/25/24 21:51 EDT Findings: No intra-axial mass, midline shift, hydrocephalus, or acute hemorrhage. No significant atrophy-like change or white matter disease. There is no sinus or mastoid fluid. The orbits are within normal limits. No skull fracture. IMPRESSION: 1. No acute intracranial findings. This document has been electronically signed by: Ambrocio Bello MD on 11/15/2024 05:27:06
--- NOTE | 2024-11-15 02:38 | ECG_ITS ---
Test Reason : hypertension Blood Pressure : */* mmHG Vent. Rate : 59 BPM Atrial Rate : 59 BPM P-R Int : 120 ms QRS Dur : 78 ms QT Int : 444 ms P-R-T Axes : 27 -23 16 degrees QTcB Int : 439 ms Sinus bradycardia Otherwise normal ECG When compared with ECG of 10-Nov-2024 23:58, No significant change was found Referred By: Generic ED Physician Electronically Signed By: MATT GUEVARA
--- NOTE | 2024-11-15 03:19 | ED.GENADULT ---
HPI - General Adult General Chief complaint: Headache Stated complaint: n/v, high bp Time Seen by Provider: 11/15/24 03:09 Source: patient and family Mode of arrival: ambulatory Limitations: no limitations History of Present Illness ED Provider: DR. Armando HPI narrative: 40-year-old female with PMH ESRD on dialysis amp/W/F, IV DA on methadone, C diff, seizure, HTN, was discharged from the hospital on 11/12 or seizure. Patient returned today for headache, vomiting, and high blood pressure. No chest pain, no shortness of breath, no fever, no chills. MRI of the spine which negative for epidural abscess patient was discharged on doxycycline. Related Data Home Medications ?Medication ?Instructions ?Recorded ?Confirmed sevelamer carbonate 800 mg tablet 800 mg PO TIDWM 09/24/24 11/11/24 sodium zirconium cyclosilicate 10 10 g PO SUTUTHSA 09/24/24 11/11/24 gram oral powder packet (Lokelma) Previous Rx's ?Medication ?Instructions ?Recorded carvedilol 12.5 mg tablet 12.5 mg PO BID #60 tabs 10/28/24 hydralazine 25 mg tablet 25 mg PO TID #90 tabs 10/28/24 methadone 10 mg/mL oral 50 mg (5 mL) PO DAILY@0800 30 days 10/28/24 concentrate (Methadose) #30 mL nifedipine 30 mg tablet,extended 30 mg PO DAILY 9 days #90 tabs 10/28/24 release 24 hr doxycycline hyclate 100 mg tablet 100 mg PO BID #20 tabs 11/09/24 ibuprofen 600 mg tablet 600 mg PO TID PRN fever or pain 11/09/24 #30 tabs levetiracetam 500 mg tablet 500 mg PO BID #60 tabs 11/12/24 (Keppra) Allergies Allergy/AdvReac Type Severity Reaction Status Date / Time No Known Allergies Allergy Verified 11/15/24 02:36 Review of Systems Review of Systems: All other systems are reviewed and are negative Constitutional: Reports as per HPI and Reports no additional constitutional complaints Eyes: Reports as per HPI and Reports no additional eye complaints Reports system reviewed and no additional complaints, except as documented Cardiovascular: Reports as per HPI and Reports no additional cardiovascular complaints Respiratory: Reports as per HPI and Reports no additional respiratory complaints Gastrointestinal: Reports as per HPI and Reports no additional gastrointestinal complaints Genitourinary: Reports no additional female genitourinary complaints Musculoskeletal: Reports no additional musculoskeletal complaints Skin/Breast: Reports system reviewed and no additional complaints, except as docu Psychiatric: Reports no additional psychiatric complaints Endocrine: Reports no additional endocrine complaints Hematologic/Lymphatic: Reports no additional hematologic/lymphatic complaints Allergic/Immunologic: Reports no additional allergic/immunologic complaints Reports system reviewed and no additional complaints, except as documented and Reports Abnormal speech present [facility] Past Medical History Medical History Opioid use disorder Hypertension, uncontrolled Anemia due to chronic kidney disease ESRD (end stage renal disease) on dialysis Medical non-compliance Norovirus Clostridioides difficile diarrhea Anemia HTN (hypertension) Drug abuse ESRD (end stage renal disease) Social History Social History Household Members: Friend(s) Housing: Apartment Do you presently have visiting nurse or other home services: Yes Alcohol intake: unknown Comment: pt refusing bed alarm and yellow fall socks Patient Tobacco Use Status: Tobacco use Unknown Smoked in Last 30 Days: Yes Use of substances other than those prescribed or required for medical reasons: Yes Substance Use Type: Heroin Advance Directives: Yes Advance Directives on File: Yes Advance Directives Date on File: 09/25/24 Do you have a plan to hurt others: No Plan Patient : No service: No Physical Exam ED Vital Signs: Vital Signs - 24 hr 11/15/24 02:31 11/15/24 03:28 11/15/24 04:37 Temperature 97.4 F Pulse Rate 72 59 Respiratory Rate 16 16 Blood Pressure 201/123 H 210/108 H 214/101 H Pulse Oximetry 100 Oxygen Delivery Method Room Air 11/15/24 05:15 11/15/24 06:02 11/15/24 06:43 Temperature 98.3 F Pulse Rate 64 76 Respiratory Rate 14 16 Blood Pressure 222/114 H 210/116 H 201/107 H Pulse Oximetry 99 Oxygen Delivery Method Room Air BMI result Body Mass Index 18.3 Vital signs have been reviewed and appear to be correct. Blood pressure elevated. Heart rate normal. Respiratory rate normal. Temperature normal. Oxygen saturation normal. Appearance: Alert. Oriented X3. No acute distress. Head: Normal external exam. Normocephalic. Atraumatic. No Gomez signs noted. No raccoon eyes noted Eyes: PERRLA. EOMI. Conjunctiva and sclera normal. Eyelids normal. ENT: TM's Normal. Pharynx normal. Uvula midline. Moist mucous membranes. No trismus noted. No drooling noted. No muffled voice noted. Neck: Normal inspection. Neck supple. FROM. No adenopathy. Thyroid Normal. No meningeal signs. No neck mass noted. CVS: Normal heart rate and rhythm. Heart sound normal. No murmurs noted. Pulses normal throughout. Respiratory: No respiratory distress. Painless inspiration. Breath sounds normal. No wheezes/rales/rhonchi noted. Chest nontender. No accessory muscle usage noted or decreased air movement noted. Abdomen: Soft and nontender. Bowel sounds normal in all 4 quadrants. No distention noted. No organomegaly noted. No visible injury noted. Back: No CVA tenderness. Full range of motion noted. Skin: Skin warm and dry. Normal skin color. Normal skin turgor. No rashes/lesions/lacerations noted. Extremities: No lower extremity edema. Extremities exhibit normal range of motion. Extremities nontender. Neuro: Oriented X 3. Cranial nerve exam: II-XII are grossly intact No motor deficit. No sensory deficit. Reflexes normal. Course Reevaluation(s) Reevaluation #1: Hypertension, headache, intractable vomiting and unable to keep oral medication. Several unsuccessful attempts to place IV access. Not responding to oral medication. Signed out to Dr. Low. Time: 07:06 Medications Administered Discontinued Medications Generic Name Dose Route Start Last Admin Trade Name Jamie PRN Reason Stop Dose Admin Amlodipine Besylate 5 mg 11/15/24 03:17 11/15/24 03:27 Amlodipine Besylate 5 Mg Tablet PO 11/15/24 03:18 5 mg ONCE ONE Administration Protocol Amlodipine Besylate 5 mg 11/15/24 04:37 11/15/24 04:42 Amlodipine Besylate 5 Mg Tablet PO 11/15/24 04:38 5 mg ONCE ONE Administration Protocol Lorazepam 2 mg 11/15/24 05:11 11/15/24 05:14 Lorazepam 1 Mg Tablet PO 11/15/24 05:12 2 mg ONCE ONE Administration Ondansetron HCl 4 mg 11/15/24 03:16 11/15/24 03:28 Ondansetron Odt 4 Mg Tab.Finndis TRANSLINGU 11/15/24 03:17 4 mg ONCE ONE Administration Medical Decision Making Differential Diagnosis Differential Diagnoses: The differential diagnosis associated with the presentation includes (Hypertensive emergency, electrolyte derangement, severe anemia, intractable vomiting.) Admission/Observation Consideration of admission/observation: Escalation of care including admission/observation considered Independent Interpretation I performed an independent interpretation of an: CT Scan (Head: No acute intracranial findings.) Radiology Impression Discussion of test interpretation with radiology: I have reviewed the radiologist's reading. Discharge Plan Discharge Clinical Impression: Hypertension, uncontrolled, Intractable vomiting Prescriptions: No Action sevelamer carbonate 800 mg tablet 800 mg PO TIDWM Lokelma 10 gram powder in packet 10 g PO SUTUTHSA doxycycline hyclate 100 mg tablet 100 mg PO BID Qty: 20 0RF ibuprofen 600 mg tablet 600 mg PO TID PRN (Reason: fever or pain) Qty: 30 0RF carvedilol 12.5 mg Tablet 12.5 mg PO BID Qty: 60 1RF Protocol: Hold for SBP/HR < HOLD for SBP < : 90 HOLD for HR < : 60 hydralazine 25 mg Tablet 25 mg PO TID Qty: 90 1RF Protocol: Hold for SBP< HOLD for SBP < : 90 methadone [Methadose] 10 mg/mL Concentrate 50 mg PO DAILY@0800 30 Days Qty: 30 0RF Rx Instructions: Partial Fill upon patient request. nifedipine 30 mg tablet extended release 24hr 30 mg PO DAILY 9 Days Qty: 90 0RF levetiracetam [Keppra] 500 mg tablet 500 mg PO BID Qty: 60 3RF Print Language: [place] Citizen
[2024-11-15] MEDS: amLODIPine Besylate 5 MG TABLET PO ×2 (03:27→04:42)
[2024-11-15] MEDS: Ondansetron ODT 4 MG TAB.RAPDIS TRANSLINGU (03:28)
--- NOTE | 2024-11-15 04:06 | PC.NURSE ---
no labs or IV access at this time. unsuccessful attempt U/S IV
[2024-11-15] MEDS: LORazepam 1 MG TABLET 2 MG PO (05:14)
[2024-11-15 07:30] LABS: MANUAL DIFF FLAG NO
[2024-11-15 07:33] LABS: Basophils Absolute Auto 0.1 X10*3/uL (0.0-0.2); Basophils Percent Auto 0.9 % (0-2); Eosinophils Percent Auto 0.4 % (0-4); Hematocrit 27.5 % (37.0-47.0); Imm Gran Abs Auto 0.15 X10*3/uL (0.00-0.03); Imm Gran Pct Auto 1.9 % (0.0-0.4); Lymphocytes Percent Auto 13.1 % (20-40); Mean Corpuscular HGB Conc 32.7 g/dl (31.0-35.0); Mean Corpuscular Hemoglobin 30.4 pg (27.0-33.0); Mean Corpuscular Volume 92.9 fL (80.0-98.0); Mean Platelet Volume 10.6 fL (9.4-12.3); Monocytes Absolute Auto 0.4 X10*3/uL (0.1-1.2); Monocytes Percent Auto 5.3 % (2-11); Neutrophils Absolute Auto 6.2 x10*3/uL (2.0-8.3); Neutrophils Percent Auto 78.4 % (45-73); Platelet Count 346 X10*3/uL (160-400); Red Blood Count 2.96 X10*6/uL (4.20-5.50); Red Cell Distribution Width 14.5 % (11.0-16.0); White Blood Count 7.9 X10*3/uL (4.8-10.8)
[2024-11-15] MEDS: Labetalol HCL 100 MG/20 ML VIAL 10 MG IVPUSH ×3 (07:35→11:41)
[2024-11-15] MEDS: ondansetron HCL 4 MG/2 ML VIAL IVPUSH ×3 (07:36→16:18)
--- NOTE | 2024-11-15 07:40 | MHC.EDTECH ---
Dr. Villatoro,F ED provider drawn the blood from Iv Ultrasound guided , I did print the labels for him and send them to the lab.
--- NOTE | 2024-11-15 07:42 | PC.NURSE ---
This RN resumed care of patient 0645. Patient a&o x 4. VSS and up to date aside from being hypertensive. Patient denies chest palpitations,nsr on car shunter. On RA w/ difficulty no apparent distress noted. Multiple attempts previously made to obtain IV access with no success. 20G Iv in left upper arm by . ultrasound guided. IV access wrapped with gauze for safety precautions. Patient currently actively vomiting, no blood noted in the vomit. Patient medicated per provider order. Effectiveness pending. BP cuff cycling Q15min. Light dimmed to promote comfort r/t generalized headache. Neuros remain intact. Plan of care on going call winkler placed in range.
[2024-11-15 08:02] LABS: Lactic Acid 0.9 mmol/L (0.5-2.0)
--- NOTE | 2024-11-15 08:23 | ECG_ITS ---
Test Reason : ches pain Blood Pressure : */* mmHG Vent. Rate : 67 BPM Atrial Rate : 67 BPM P-R Int : 122 ms QRS Dur : 78 ms QT Int : 416 ms P-R-T Axes : 69 -20 33 degrees QTcB Int : 439 ms Normal sinus rhythm Normal ECG When compared with ECG of 15-Nov-2024 02:44, No significant change was found Referred By: Walter Low Electronically Signed By: MATT GUEVARA
[2024-11-15 08:25] LABS: Alanine Aminotransferase 9 U/L (0-31); Albumin Level 3.8 g/dL (3.5-5.0); Alkaline Phosphatase 137 U/L (39-117); Anion Gap 23 (12-20); Aspartate Amino Transferase 25 U/L (5-31); Bilirubin Total 0.5 mg/dL (0.0-1.0); Blood Urea Nitrogen 67 mg/dL (9-16); Calcium 9.7 mg/dL (8.4-10.2); Carbon Dioxide 24 mmol/L (22-29); Chloride 97 mmol/L (96-108); Creatinine Clr Calc Pharmacy 5.3; Estimated Glomerular Filt Rate 5; Glucose Random 95 mg/dL (60-115); Potassium 6.4 mmol/L (3.3-5.1); Sodium 138 mmol/L (135-145); Total Protein 7.1 g/dL (6.5-8.0)
--- NOTE | 2024-11-15 08:25 | PC.NURSE ---
Critical lab value received at this time. K 6.4 Dr. Low notified
[2024-11-15 08:31] LABS: Troponin-I High Sensitivity 90.9 ng/L (<3.5-17.0)
[2024-11-15] MEDS: cloNIDine HCL 0.2 MG TABLET PO (08:53)
[2024-11-15] MEDS: Sodium Zirconium Cyclosilicate 10 GM POWD.PACK PO ×2 (08:53→16:17)
--- NOTE | 2024-11-15 09:04 | PC.NURSE ---
Pt remains hypertensive. Received additional dose of labetalol pending effectiveness. Patient c/o of continued nausea but no vomiting, Patient received additional dose of zofran per Dr. Low. Pending effectiveness of zofran at this time.
[2024-11-15] MEDS: Albuterol Sulfate 7.5 MG, Albuterol Sulfate (0.083%) 2.5 MG 10 MG INHALE (09:13)
--- NOTE | 2024-11-15 10:04 | P.HPHOSP_ITS ---
History of Present Illness Date of Service: 11/15/24 Attending physician on admission: Norbert Valdez Chief Complaint: Headache/nausea/vomiting 49-year-old female with a past medical history significant for end-stage renal disease on hemodialysis MWF, chronic hyperkalemia on lokelma, substance use disorder on methadone with current IV drug abuse following with N, generalized seizure disorder presented to the ED earlier this morning due to severe frontal headache, nausea, vomiting. She did present to dialysis yesterday but was only to sit for 2 hours due to hypertension and completed this around 16:00. She follows with [facility], sees Dr. Dooley. This morning she developed severe frontal headache with blurred vision as well as nausea and vomiting. This has been persistent. Denies any upper respiratory symptoms, abdominal pain, diarrhea, constipation, melena, hematochezia, urinary symptoms, cough, shortness of breath, or chest pressure. The patient reports compliance with all medications. She was recently admitted 10/13-10/20 due to norovirus and also was positive for C diff PCR gene, toxin negative. However given diarrhea, she was treated with p.o. vancomycin times 10 days which she completed. She had also reportedly had a seizure during the HD session prior to admission. She was evaluated by Neurology stating generalized seizures and started on Keppra and recommended outpatient EEG as well as uncontrolled hypertension. She was then admitted from 10/27 again for hypertension due to noncompliance and missed HD (has poor compliance with HD as well complicated by chronic hyperkalemia). She was again admitted 11/11- as she was called back for positive blood cultures which ultimately grew coag-negative staph but was found to have an abscess on her arm. Tested positive for cdiff but no diarrhea and therefore not treated. She was initially treated with IV vancomycin for the abscess and was discharged on doxycycline. Echo without evidence of vegetations. No further seizure episodes. Since arrival, has been significantly hypertensive despite a total of 20 mg IV labetalol, clonidine, amlodipine. On admission blood pressure 201/111. Initially tachycardic/tachypneic which has resolved. Hematology studies unremarkable. Creatinine 9.16, BUN 67. Potassium 6.4 electrolytes otherwise within normal limits. Troponin 90.9, repeat pending. EKG shows NSR, rate [address]-T changes (no peaked twaves), QTC 439. Head CT negative for any acute intracranial abnormality. Review of Systems 2 Review of Systems: Yes all other systems are reviewed and are negative [facility] Medical History Opioid use disorder Hypertension, uncontrolled Anemia due to chronic kidney disease ESRD (end stage renal disease) on dialysis Medical non-compliance Norovirus Clostridioides difficile diarrhea Anemia HTN (hypertension) Drug abuse ESRD (end stage renal disease) Social History Household Members: Friend(s) Housing: Apartment Do you presently have visiting nurse or other home services: Yes Alcohol intake: unknown Comment: pt refusing bed alarm and yellow fall socks Patient Tobacco Use Status: Tobacco use Unknown Smoked in Last 30 Days: Yes Use of substances other than those prescribed or required for medical reasons: Yes Substance Use Type: Heroin Advance Directives: Yes Advance Directives on File: Yes Advance Directives Date on File: 09/25/24 Do you have a plan to hurt others: No Plan Patient : No service: No Meds Allergies Allergy/AdvReac Type Severity Reaction Status Date / Time No Known Allergies Allergy Verified 11/15/24 02:36 Active Medications: Current Medications Acetaminophen (Acetaminophen 325 Mg Tablet) 650 mg PO Q6H PRN PRN Reason: Pain, Mild 1-3,fever,headache Calcium Carbonate (Calcium Carbonate 750 Mg Tab.Chew) 750 mg PO Q4H PRN PRN Reason: Heartburn Carvedilol (Carvedilol 12.5 Mg Tablet) 12.5 mg PO BID ANNA MARIE; Protocol Enoxaparin Sodium (Enoxaparin Sodium 40 Mg/0.4 Ml Syringe) 40 mg SUBCUT Q24H ANNA MARIE Hydralazine HCl (Hydralazine Hcl 25 Mg Tablet) 25 mg PO TID ANNA MARIE; Protocol Magnesium Hydroxide (Milk Of Magnesia 30 Ml Oral.Susp) 30 ml PO DAILY PRN PRN Reason: Constipation Melatonin (Melatonin 3 Mg Tablet) 6 mg PO BEDTIME PRN PRN Reason: Insomnia Nifedipine (Nifedipine Er 30 Mg Tab.Er.24) 30 mg PO DAILY ANNA MARIE; Protocol Ondansetron HCl (Ondansetron Hcl 4 Mg/2 Ml Vial) 4 mg IVPUSH Q8H PRN PRN Reason: Nausea and Vomiting Sodium Chloride (0.9 % Sodium Chloride Flush 3 Ml Syringe) 3 ml IVFLUSH QSHIFT [facility] Home Medications ?Medication ?Instructions ?Recorded ?Confirmed ?Last Taken ?Type sevelamer carbonate 800 mg tablet 800 mg PO TIDWM 09/24/24 11/11/24 10/11/24 History sodium zirconium cyclosilicate 10 10 g PO SUTUTHSA 09/24/24 11/11/24 10/11/24 History gram oral powder packet (Lokelma) Physical Exam 2 Vital Signs and Narrative: Vital Signs: Last Vital Signs Temp 98.3 F 11/15/24 08:33 Pulse 70 11/15/24 09:15 Resp 16 11/15/24 09:15 BP 206/110 H 11/15/24 08:53 Pulse Ox 99 11/15/24 08:33 O2 Del Method Room Air 11/15/24 08:33 BMI result Body Mass Index 18.3 Constitutional - Awake and Alert, No apparent distress Eyes - PERRLA, EOMI Cardiovascular - S1S2, RRR, No edema Respiratory - Normal lung expansion, Normal respiratory effort, No respiratory distress, CTA bilaterally Gastrointestinal - NT / ND; +BS; No rebound or guarding Extremities - no calf tenderness bilaterally, no swelling Skin - Warm/Dry Neurological - Alert & oriented x3, CN II-XII in tact Psychological - Appropriate affect Results Labs 11/15/24 07:25 11/15/24 07:59 Labs: Laboratory Results - last 24 hr 11/15/24 11/15/24 07:25 07:59 MCV 92.9 MCH 30.4 MCHC 32.7 RDW 14.5 Plt Count 346 D MPV 10.6 Immature Gran % (Auto) 1.9 H Neut % (Auto) 78.4 H Lymph % (Auto) 13.1 L [place] % (Auto) 5.3 Eos % (Auto) 0.4 Baso % (Auto) 0.9 Lymph # (Auto) 1.0 L [place] # (Auto) 0.4 Eos # (Auto) 0.0 Baso # (Auto) 0.1 Abs Immat Gran (auto) 0.15 H Absolute Neuts (auto) 6.2 Absolute Nucleated RBC 0.000 Nucleated RBC % (auto) 0.0 Anion Gap 23 H Estim Creat Clear Calc 5.3 Estimated GFR 5 Random Glucose 95 Lactic Acid 0.9 Calcium 9.7 D Magnesium 2.0 Total Bilirubin 0.5 AST 25 ALT 9 Alkaline Phosphatase 137 H Total Protein 7.1 Albumin 3.8 Assessment and Plan (1) Intractable vomiting: Status: Acute (2) Hypertensive urgency: Status: Acute (3) Elevated troponin: Status: Acute (4) Acute hyperkalemia: Status: Acute (5) ESRD (end stage renal disease) on dialysis: Status: Acute Plan 49-year-old female with a past medical history significant for end-stage renal disease on hemodialysis MWF, chronic hyperkalemia on lokelma, substance use disorder on methadone with current IV drug abuse following with [facility], generalized seizure disorder admitted for further management of hypertensive urgency and hyperkalemia Acute on chronic hyperkalemia likely due to medication noncompliance and not completing HD session yesterday K 6.4, no EKG changes Given lokelma in ED Nephrology consult ([facility])- plan for HD today Monitor on telemetry Follow lytes Hypertension/hypertensive urgency Likely related to noncompliance with medications and HD, opiate withdrawal- overdue for methadone Troponin 90.9, repeat pending-no chest pain. EKG without any ischemic changes Severe frontal headache-head CT negative for any acute intracranial abnormality. No focal neuro deficits Blood pressure on admission 201/111-received 20 mg IV labetalol, 0.2 mg clonidine, and 10 mg of amlodipine in the ED Give additional 10 mg IV labetalol. Resume p.o. hydralazine 25 mg t.i.d., Coreg 12.5 mg b.i.d., nifedipine 30 mg Methadone 30 mg ordered. Awaiting verification of methadone dose ([facility]) Monitor on telemetry. Close monitoring of vital signs Elevated troponin 90.9, repeat pending EKG without acute ischemic changes Likely demand in the setting of uncontrolled hypertension Monitor on telemetry Acute headache r/t uncontrolled hypertension See above Acute nausea/vomiting likley r/t missed HD/hyperkalemia ESRD on HD MWF only sat 2 hours yesterday d/t htn creat 9.16, BUN 67. K 6.4, add phosphorus On review of chart, noncompliant with dialysis sessions Continue Lokelma, phosphorus binders Low-sodium/low phosphorus diet Nephrology consult-plan for HD today Follow renal function/lytes OUD with ongoing IV drug abuse Give 30 mg methadone now. Awaiting dose verification from [facility] ONI[facility]. Resume once available Declines HIV/Hepatitis screen Declines addiction med consult. Reports good outpt supports Generalized seizure disorder Continue Keppra Needs outpatient EEG DVT prophylaxis-heparin Full code Patient requires inpatient stay at least 2 midnights for management of acute hyperkalemia as well as hypertensive urgency with need for hemodialysis and expert consultation as well as close monitoring of vital signs and electrolyte levels Quality Stroke Does the patient have a stroke diagnosis?: No VTE Prior VTE?: No VTE Risk Level:: Medical - moderate - high VTE Device Contraindication: Treatment Not Indicated VTE Drug Contraindication: N/A - Med Ordered
--- NOTE | 2024-11-15 10:51 | HE.PHANOTE ---
METHADONE Pt last received 50 on @ 6052 with 6 take home bottles per PHYLLIS Lobo, at [facility], . Last dose 5 out of 7 bottles on 11/14
--- NOTE | 2024-11-15 10:53 | PC.NURSE ---
spoke with PHYLLIS Lobo at [facility] on [address] Dose confirmed - pt last dosed in person 11/09 0535 with 50 mg. Patient then provided with 6 take home bottles. Patient currently on 5 out of 6 bottles. Last dose with 50 mg on 11/14. Methadone verification form completed and faxed to pharmacy
[2024-11-15 11:14] LABS: Phosphorus 9.8 mg/dL (2.7-4.5)
[2024-11-15] MEDS: Metoclopramide HCl 10 MG/2 ML VIAL IVPUSH (11:37)
[2024-11-15] MEDS: carvediloL 12.5 MG TABLET PO ×2 (11:39→20:20)
[2024-11-15] MEDS: hydrALAZINE HCl 25 MG TABLET PO ×3 (11:39→20:18)
[2024-11-15] MEDS: Heparin Sodium,Porcine 5,000 UNIT/ML VIAL 5000 UNIT SUBCUT ×2 (11:39→23:04)
[2024-11-15] MEDS: levETIRAcetam 500 MG TABLET PO ×2 (11:40→20:17)
[2024-11-15] MEDS: methADONE HCl 20 MG/2 ML ORAL.CONC 30 MG PO (11:40)
[2024-11-15] MEDS: NIFEdipine ER 30 MG TAB.ER.24 PO (11:40)
--- NOTE | 2024-11-15 11:42 | PC.NURSE ---
delay in medication administration as pt was refusing d/t feeling continuously nauseous. admitting provider notified/aware. reglan administered for nausea - pt able to tolerate PO medications w/o difficulty.
--- NOTE | 2024-11-15 11:55 | CONS_ITS ---
DATE OF SERVICE: REASON FOR CONSULTATION: Consult requested by the ER team to evaluate and help in management of patient with ESRD, re-presented with hyperkalemia. HISTORY OF PRESENT ILLNESS: Patient has ESRD, on hemodialysis on Thursday, Thursday, Thursday; chronic hyperkalemia, on Lokelma; has substance use disorder, on methadone, generalized seizure disorder, presents to the ER due to severe frontal headache, nausea, and vomiting. She did present to dialysis yesterday, but at only 2 hours due to hypertension. She has been followed up by Dr. Dooley in the dialysis unit. She developed a severe frontal headaches and blurry vision with nausea and vomiting, which is persisting and came to the ER. She denies any respiratory symptoms, abdominal pain, diarrhea, constipation, melena, hematochezia, or urinary symptoms. She recently admitted between 10/13 to 10/20 due to norovirus infection and positive C diff PCR, but negative toxin. She was treated with p.o. vancomycin for 10 days, which she completed. She has had seizures during dialysis and has been treated with Keppra. She was again admitted on 10/27 for hypertension, noncompliant and missed dialysis treatment. She had a readmission between 11/11 to 11/12 when she was called back for positive blood cultures, which ultimately grew coagulase-negative Staph, but had an abscess in around. She tested positive for C diff, but no diarrhea. She was not treated. Upon arrival this admission, patient had significantly hypertensive and received 20 mg IV labetalol, clonidine, amlodipine. Blood pressures were 201/111. She was initially tachycardic, which resolved. BUN and creatinine were elevated, potassium of 6.4, which was treated medically. REVIEW OF SYSTEMS: As noted above. Other system review negative. PAST MEDICAL HISTORY: History of opioid use disorder; history of hypertension; anemia due to chronic disease; ESRD, on hemodialysis; noncompliance to medication; history of norovirus infection; C diff infection; history of anemia; hypertension; and drug abuse. PERSONAL AND SOCIAL HISTORY: Patient lives with a friend. It is unclear if she drinks, does use heroin. ALLERGIES: PATIENT HAS NO KNOWN DRUG ALLERGIES. MEDICATIONS: As an outpatient, patient reviewed. PHYSICAL EXAMINATION: GENERAL: Patient was resting in the ER. Mild discomfort was present. VITAL SIGNS: Blood pressure was 206/110, which was improved. Pulse 70, afebrile. HEENT: Shows pupils equal, round, and reactive bilaterally to light. No jugular venous distention was noted. NECK: Supple. CARDIOVASCULAR SYSTEM: S1, S2 without rub. RESPIRATORY SYSTEM: Mildly decreased in bases. No crepitation or rhonchi is noted. ABDOMEN: Soft, nontender. Bowel sounds normal. EXTREMITIES: Showed no edema. Upper chest PermCath was noted. LABORATORY DATA: Done today. WBC 7.9, hemoglobin 9, hematocrit 27.5, platelets 346. Sodium 138, potassium 6.4, chloride 97, CO2 of 24, BUN 67, creatinine 9.16. IMPRESSION: 1. A 49-year-old female with end-stage renal disease, on hemodialysis. 2. Hyperkalemia due to probable noncompliance to dialysis and diet regimen and Lokelma treatment. 3. Uncontrolled hypertension/hypertensive urgency in the setting of multifactorial reason. 4. Acute headache due to uncontrolled hypertension. 5. Nausea and vomiting. RECOMMENDATION: At this juncture, patient is hyperkalemic and hypertensive. I have arranged hemodialysis with the inpatient dialysis unit. We will dialyze her 2 hours with 1K bath. We will bring patient again in a.m. for dialysis and keep her on the Thursday, Thursday, Thursday schedule. She should continue with Lokelma and phosphate binders. We will continue to follow the patient closely with you and she needs to be on a strict 2 g sodium diet and 2 g potassium diet. Thank you for allowing me to participate in medical management of the patient. MD ADEN Muse/MALGORZATA / [id number]
--- NOTE | 2024-11-15 12:03 | PHA.MEDREC ---
Addendum entered by Dariana Flores RPh 11/15/24 12:09: Reviewed by [facility] Original Note: Pharmacy Consult ? Medication Reconciliation Pharmacy has completed the medication reconciliation. Spoke with patient and she confirmed her medications. Patient has been taking Hydralazine 25mg tab twice a day instead of three times.
[2024-11-15] MEDS: hydrALAZINE HCl 20 MG/ML VIAL 10 MG IVPUSH (12:28)
--- NOTE | 2024-11-15 13:04 | MHC.CM.PN ---
Patient lives alone in an apartment and is functionally independent. Patient is active with [facility] for home Methadone delivery and her HD is Q M/W/F at [facility]. Home/resume said services is the goal and CM has initiated and will follow for dc planning. Patient's Sister/Nica is the HCP and PCP is Dr. Judson Hansen.Patient will require Lyft vs shuttle for transport to home @ dc.
--- NOTE | 2024-11-15 13:44 | PC.NURSE ---
patient to dialysis via transportation at this time.
[2024-11-15] MEDS: Acetaminophen 325 MG TABLET 650 MG PO (16:15)
[2024-11-15] MEDS: 0.9 % Sodium Chloride Flush 3 ML SYRINGE IVFLUSH ×2 (16:15→20:18)
[2024-11-15] MEDS: Sevelamer Carbonate Tablet 800 MG TABLET PO (16:15)
--- NOTE | 2024-11-15 18:03 | HO.WOUND ---
Wound Consult: Initial 49yr old? female admitted to [facility] on 11/15/24 10:01 - See progress notes and H&P for detailed history.? Wound consult placed for Left Upper Arm Abscess site s/p I&D - seen last admission.? Patient agreeable to assessment and photo documentation.? No photo taken at todays assessment. Left Upper Arm Etiology: ?Abscess site S/P I&D ? Measurements: small dried scabbed incision area noted - mild erythema mild swelling noted - no open wound noted hoever given recent history and inpatient would recommend keeping clean and covered while inpatient. Wound Bed: small dried scab Drainage / Odor: none Edges: ? attached Penny wound: ? mild Erythema, no induration, no Fluctuance and no Warmth noted Pain: denies Goals of Treatment: ? Foam dressing to protect from friction and trauma Recommendations: 1. Left Upper Arm - Cleanse with Betadine allow to dry. Cover with Foam dressing and or dry gauze. Change every 4 days and PRN. Re-consult wound care Nurse for wound deterioration or wound changes.
[2024-11-15] MEDS: Doxycycline Monohydrate 100 MG CAPSULE PO (20:17)
[2024-11-16] VITALS (8 sets, daily range): BP systolic 170–206; BP diastolic 87–111; PULSE 73–80; RESP 16–18; TEMP 36.3–37.2; O2SAT 94–98; BMI 19.4
[2024-11-16] MEDS: ondansetron HCL 4 MG/2 ML VIAL IVPUSH (01:27)
--- NOTE | 2024-11-16 01:38 | PC.NURSE ---
pt complaining of withdrawal s/s, aware. 10mg oxy PO given - pt nausea and threw it up. MD aware. This RN visualized broken up tablets in emesis. charting corrected.
[2024-11-16] MEDS: HYDROmorphone HCl 0.5 MG/0.5 ML SYRINGE IVPUSH (01:47)
[2024-11-16] MEDS: hydrALAZINE HCl 25 MG TABLET PO (05:29)
--- NOTE | 2024-11-16 05:30 | PC.NURSE ---
AM BP 206/111 - pt asymptomatic. aware. PO scheduled hydralazine given early.
[2024-11-16] MEDS: methADONE HCl 20 MG/2 ML ORAL.CONC 50 MG PO (07:49)
[2024-11-16] MEDS: carvediloL 12.5 MG TABLET PO (07:49)
[2024-11-16] MEDS: NIFEdipine ER 30 MG TAB.ER.24 PO ×2 (07:49→14:05)
[2024-11-16] MEDS: levETIRAcetam 500 MG TABLET PO (07:49)
[2024-11-16] MEDS: Sevelamer Carbonate Tablet 800 MG TABLET PO ×3 (07:49→17:11)
[2024-11-16] MEDS: Doxycycline Monohydrate 100 MG CAPSULE PO (07:50)
[2024-11-16] MEDS: 0.9 % Sodium Chloride Flush 3 ML SYRINGE IVFLUSH ×2 (07:53→17:11)
--- NOTE | 2024-11-16 07:57 | HO.PM.IMPN ---
Subjective Subjective Date of Service: 11/16/24 Interval History: Seen in follow-up for electrolyte abnormality/HD Interval history: Blood pressures remain uncontrolled Physical Exam Vital Signs: Vital Signs: Last Vital Signs Temp 98 F 11/16/24 07:40 Pulse 73 11/16/24 07:40 Resp 18 11/16/24 07:40 BP 195/91 H 11/16/24 07:40 Pulse Ox 98 11/16/24 07:40 O2 Del Method Room Air 11/16/24 07:40 BMI result Body Mass Index 42.7 Objective Data Active Medications Acetaminophen (Acetaminophen 325 Mg Tablet) 650 mg PO Q6H PRN PRN Reason: Pain, Mild 1-3,fever,headache Last Admin: 11/15/24 16:15 Dose: 650 mg Documented By: TITA Calcium Carbonate (Calcium Carbonate 750 Mg Tab.Chew) 750 mg PO Q4H PRN PRN Reason: Heartburn Carvedilol (Carvedilol 12.5 Mg Tablet) 12.5 mg PO BID [facility]; Protocol Last Admin: 11/16/24 07:49 Dose: 12.5 mg Documented By: YONAS Doxycycline Monohydrate (Doxycycline Monohydrate 100 Mg Capsule) 100 mg PO BID [facility] Last Admin: 11/16/24 07:50 Dose: 100 mg Documented By: YONAS Heparin Sodium (Porcine) (Heparin Sodium,Porcine 5,000 Unit/Ml Vial) 5,000 unit SUBCUT Q12H [facility] Last Admin: 11/15/24 23:04 Dose: 5,000 unit Documented By: ANTOINC Hydralazine HCl (Hydralazine Hcl 25 Mg Tablet) 25 mg PO TID [facility]; Protocol Last Admin: 11/16/24 05:29 Dose: 25 mg Documented By: ANTOINAretha Levetiracetam (Levetiracetam 500 Mg Tablet) 500 mg PO BID [facility] Last Admin: 11/16/24 07:49 Dose: 500 mg Documented By: YONAS Magnesium Hydroxide (Milk Of Magnesia 30 Ml Oral.Susp) 30 ml PO DAILY PRN PRN Reason: Constipation Melatonin (Melatonin 3 Mg Tablet) 6 mg PO BEDTIME PRN PRN Reason: Insomnia Methadone HCl (Methadone Hcl 20 Mg/2 Ml Oral.Conc) 50 mg PO DAILY@0800 [facility] Last Admin: 11/16/24 07:49 Dose: 50 mg Documented By: YONAS Co-signed By: RAVI Nifedipine (Nifedipine Er 30 Mg Tab.Er.24) 30 mg PO DAILY [facility]; Protocol Last Admin: 11/16/24 07:49 Dose: 30 mg Documented By: YONAS Ondansetron HCl (Ondansetron Hcl 4 Mg/2 Ml Vial) 4 mg IVPUSH Q8H PRN PRN Reason: Nausea and Vomiting Last Admin: 11/16/24 01:27 Dose: 4 mg Documented By: ANTOINAretha Sevelamer Carbonate (Sevelamer Carbonate Tablet 800 Mg Tablet) 800 mg PO TIDWM [facility] Last Admin: 11/16/24 07:49 Dose: 800 mg Documented By: YONAS Sodium Chloride (0.9 % Sodium Chloride Flush 3 Ml Syringe) 3 ml IVFLUSH QSHIFT [facility] Last Admin: 11/16/24 07:53 Dose: 3 ml Documented By: YONAS Sodium Zirconium Cyclosilicate (Sodium Zirconium Cyclosilicate 10 Gm Powd.Pack) 10 gm PO SUTUTHSA [facility] Last Admin: 11/15/24 16:17 Dose: 10 gm Documented By: TITA Labs 11/15/24 07:25 11/15/24 07:59 Labs: Laboratory Results - last 24 hr 11/15/24 11/15/24 07:25 07:59 Anion Gap 23 H Estim Creat Clear Calc 5.3 Estimated GFR 5 Random Glucose 95 Lactic Acid 0.9 Calcium 9.7 D Phosphorus 9.8 H Magnesium 2.0 Total Bilirubin 0.5 AST 25 ALT 9 Alkaline Phosphatase 137 H Total Protein 7.1 Albumin 3.8 Assessment and Plan Plan 49-year-old female with a past medical history significant for end-stage renal disease on hemodialysis MWF, chronic hyperkalemia on lokelma, substance use disorder on methadone with current IV drug abuse following with [facility], generalized seizure disorder admitted for further management of hypertensive urgency and hyperkalemia Acute on chronic hyperkalemia likely due to medication noncompliance and not completing HD session yesterday K 6.4, no EKG changes Given lokelma in ED Nephrology consult (RTANE)- plan for HD today Monitor on telemetry Follow lytes Hypertension/hypertensive urgency Likely related to noncompliance with medications and HD, opiate withdrawal-overdue for methadone Troponin 90.9, repeat pending-no chest pain. EKG without any ischemic changes Severe frontal headache-head CT negative for any acute intracranial abnormality. No focal neuro deficits Blood pressure on admission 201/111-received 20 mg IV labetalol, 0.2 mg clonidine, and 10 mg of amlodipine in the ED Give additional 10 mg IV labetalol. Resume p.o. hydralazine 25 mg t.i.d., Coreg 12.5 mg b.i.d., nifedipine 30 mg Methadone 30 mg ordered. Awaiting verification of methadone dose ([facility]) Monitor on telemetry. Close monitoring of vital signs Elevated troponin 90.9, repeat pending EKG without acute ischemic changes Likely demand in the setting of uncontrolled hypertension Monitor on telemetry Acute headache r/t uncontrolled hypertension See above Acute nausea/vomiting likley r/t missed HD/hyperkalemia ESRD on HD MWF only sat 2 hours yesterday d/t htn creat 9.16, BUN 67. K 6.4, add phosphorus On review of chart, noncompliant with dialysis sessions Continue Lokelma, phosphorus binders Low-sodium/low phosphorus diet Nephrology consult-plan for HD today Follow renal function/lytes OUD with ongoing IV drug abuse Give 30 mg methadone now. Awaiting dose verification from [facility]. Resume once available Declines HIV/Hepatitis screen Declines addiction med consult. Reports good outpt supports Generalized seizure disorder Continue Keppra Needs outpatient EEG DVT prophylaxis-heparin Full code Patient requires inpatient stay at least 2 midnights for management of acute hyperkalemia as well as hypertensive urgency with need for hemodialysis and expert consultation as well as close monitoring of vital signs and electrolyte levels Quality Stroke Does the patient have a stroke diagnosis?: No VTE Prior VTE?: No VTE Risk Level:: Medical - moderate - high VTE Device Contraindication: Treatment Not Indicated VTE Drug Contraindication: N/A - Med Ordered
[2024-11-16 08:42] LABS: MANUAL DIFF FLAG NO
[2024-11-16 08:45] LABS: Basophils Absolute Auto 0.1 X10*3/uL (0.0-0.2); Basophils Percent Auto 0.9 % (0-2); Eosinophils Absolute Auto 0.1 X10*3/uL (0.0-0.4); Eosinophils Percent Auto 1.4 % (0-4); Hematocrit 27.1 % (37.0-47.0); Hemoglobin 8.5 g/dl (12.0-16.0); Imm Gran Pct Auto 1.4 % (0.0-0.4); Lymphocytes Absolute Auto 1.4 X10*3/uL (1.2-4.9); Lymphocytes Percent Auto 19.6 % (20-40); Mean Corpuscular HGB Conc 31.4 g/dl (31.0-35.0); Mean Corpuscular Hemoglobin 29.6 pg (27.0-33.0); Mean Corpuscular Volume 94.4 fL (80.0-98.0); Mean Platelet Volume 10.3 fL (9.4-12.3); Monocytes Absolute Auto 0.5 X10*3/uL (0.1-1.2); Monocytes Percent Auto 7.1 % (2-11); Neutrophils Absolute Auto 4.8 x10*3/uL (2.0-8.3); Neutrophils Percent Auto 69.6 % (45-73); Platelet Count 293 X10*3/uL (160-400); Red Blood Count 2.87 X10*6/uL (4.20-5.50); Red Cell Distribution Width 14.6 % (11.0-16.0)
[2024-11-16 09:13] LABS: Anion Gap 15 (12-20); Blood Urea Nitrogen 31 mg/dL (9-16); Creatinine Clr Calc Pharmacy 14.6; Estimated Glomerular Filt Rate 9; Glucose Random 96 mg/dL (60-115)
[2024-11-16 09:25] LABS: Troponin-I High Sensitivity 71.1 ng/L (<3.5-17.0)
[2024-11-16 09:30] LABS: Calcium 8.4 mg/dL (8.4-10.2); Carbon Dioxide 28 mmol/L (22-29); Chloride 97 mmol/L (96-108); Potassium 4.1 mmol/L (3.3-5.1); Sodium 136 mmol/L (135-145)
--- NOTE | 2024-11-16 10:34 | P.DS_ITS ---
DS: Providers Provider Date of Service: 11/16/24 Date of admission: 11/15/24 10:01 Date of discharge: 11/16/24 Primary care physician: None Physician Admitting clinician: Katalina Carmona Attending physician on admission: Norbert Valdez Consults: 11/15/24 08:54 Consult to Nephrology Stat Consulting Provider: Dick Maddox Reason for consultation: renal failure on dyalisis Has provider been notified: Yes 11/15/24 09:57 Consult to Nephrology Routine Consulting Provider: [facility] Reason for consultation: ESRD on HD. Only sat for 2hr yesterday d/t htn Attending physician on discharge: Norbert Valdez Discharging clinician: Norbert Valdez DS: Diagnosis Discharge Diagnosis (1) Intractable vomiting: Status: Acute (2) Hypertensive urgency: Status: Acute (3) Elevated troponin: Status: Acute (4) Acute hyperkalemia: Status: Acute (5) ESRD (end stage renal disease) on dialysis: Status: Acute DS: Summary Hospital Course Hospital Course: HPI on admission 11/16 by this provider: Chief Complaint: Headache/nausea/vomiting 49-year-old female with a past medical history significant for end-stage renal disease on hemodialysis MWF, chronic hyperkalemia on lokelma, substance use disorder on methadone with current IV drug abuse following with N, generalized seizure disorder presented to the ED earlier this morning due to severe frontal headache, nausea, vomiting. She did present to dialysis yesterday but was only to sit for 2 hours due to hypertension and completed this around 16:00. She follows with ANNEMARIE, stef Dooley. This morning she developed severe frontal headache with blurred vision as well as nausea and vomiting. This has been persistent. Denies any upper respiratory symptoms, abdominal pain, diarrhea, constipation, melena, hematochezia, urinary symptoms, cough, shortness of breath, or chest pressure. The patient reports compliance with all medications. She was recently admitted 10/13-10/20 due to norovirus and also was positive for C diff PCR gene, toxin negative. However given diarrhea, she was treated with p.o. vancomycin times 10 days which she completed. She had also reportedly had a seizure during the HD session prior to admission. She was evaluated by Neurology stating generalized seizures and started on Keppra and recommended outpatient EEG as well as uncontrolled hypertension. She was then admitted from 10/27 again for hypertension due to noncompliance and missed HD (has poor compliance with HD as well complicated by chronic hyperkalemia). She was again admitted 11/11- as she was called back for positive blood cultures which ultimately grew coag-negative staph but was found to have an abscess on her arm. Tested positive for cdiff but no diarrhea and therefore not treated. She was initially treated with IV vancomycin for the abscess and was discharged on doxycycline. Echo without evidence of vegetations. No further seizure episod es. Since arrival, has been significantly hypertensive despite a total of 20 mg IV labetalol, clonidine, amlodipine. On admission blood pressure 201/111. Initially tachycardic/tachypneic which has resolved. Hematology studies unremarkable. Creatinine 9.16, BUN 67. Potassium 6.4 electrolytes otherwise within normal limits. Troponin 90.9, repeat pending. EKG shows NSR, rate [address]-T changes (no peaked twaves), QTC 439. Head CT negative for any acute intracranial abnormality. Hospital course: Patient admitted to [facility] due to acute on chronic hyperkalemia in the setting of noncompliance with hemodialysis/shortened dialysis session the day prior to admission. Blood pressures were significantly elevated in hypertensive urgency with associated headache and elevated troponins, though troponins are chronically elevated. Blood pressure as high as 217/105. Blood pressures did respond favorably initally to IV labetalol. She initially refused home medications but they were ultimately resumed and improved with HD as well. She was given Lokelma in the ED and nephrology was consulted. She was dialyzed x2 hours with 1 K yesterday. This morning K improved to 4.1 and creat to 5.32. She was dialyzed again this morning. Following HD this morning, blood improved to 170/93. Increase nefedipine XL to 60mg daily, increase hydralazine to 50mg TID. Continue carvedilol 12.5 mg b.i.d.. Acute on chronic hyperkalemia with ESRD on HD likely due to medication noncompliance and not completing HD session yesterday Inital K 6.4, no EKG changes Improved with Lokelma and HD to 4.1 Nephrology input appreciated. Dialyzed 11/15 and 11/16 Continue MWF HD and follow up with Dr. Dooley as scheduled Low-sodium/low potassium diet. Continue phosphate binders and diuretics. Continue Lokelma Uncontrolled hypertension/hypertensive urgency Likely related to noncompliance with medications and HD, opiate withdrawal- overdue for methadone Troponin 90.9, 71-no chest pain. EKG without any ischemic changes Severe frontal headache-head CT negative for any acute intracranial abnormality. No focal neuro deficits. Resolved Blood pressure on admission 201/111-received 20 mg IV labetalol, 0.2 mg clonidine, and 10 mg of amlodipine in the ED. Gived additional 10 mg IV labetalol Resumed p.o. hydralazine 25 mg t.i.d., Coreg 12.5 mg b.i.d., nifedipine 30 mg. Continue on discharge Importance of medication and HD compliance discussed Elevated troponin 90.9, repeat 71 EKG without acute ischemic changes Likely demand in the setting of uncontrolled hypertension Monitor on telemetry Acute headache - resolved r/t uncontrolled hypertension See above Acute nausea/vomiting likely r/t missed HD/hyperkalemia OUD with ongoing IV drug abuse Continue 50 mg methadone Declined HIV/Hepatitis screen Declined addiction med consult. Follow up with [facility] for methadone Generalized seizure disorder Continue Keppra Needs outpatient EEG Time spent discussing smoking cessation with patient: 3 to 10 minutes Status at Discharge Functional status at discharge: independent ambulation Time Attestation Discharge Coordination Time (in mins): 40 Quality: Safe Use of Opioids Does Pt have an Active Cancer Diagnosis on the Problem List?: No Quality: Stroke Does the patient have a stroke diagnosis?: No Physical Exam Vital Signs: Vital Signs: Last Vital Signs Temp 98 F 11/16/24 07:40 Pulse 73 11/16/24 07:40 Resp 18 11/16/24 07:40 BP 195/91 H 11/16/24 07:40 Pulse Ox 98 11/16/24 07:40 O2 Del Method Room Air 11/16/24 07:40 BMI result Body Mass Index 42.7 DS: Data Data Completed and Pending Completed studies during hospitalization [Text1]: Procedures Insertion of Endotracheal Airway into Trachea, Via Natural or Artificial Opening (09/24/24) Insertion of Infusion Device into Upper Vein, Percutaneous Approach (09/24/24) Performance of Urinary Filtration, Intermittent, Less than 6 Hours Per Day (10/25/24) Respiratory Ventilation, 24-96 Consecutive Hours (09/24/24) Transfusion of Nonautologous Red Blood Cells into Peripheral Vein, Percutaneous Approach (10/25/24) Labs on day of discharge: Laboratory Results - last 24 hr 11/15/24 11/16/24 11/16/24 07:59 08:27 08:28 WBC 7.0 RBC 2.87 L Hgb 8.5 L Hct 27.1 L MCV 94.4 MCH 29.6 MCHC 31.4 RDW 14.6 Plt Count 293 MPV 10.3 Immature Gran % (Auto) 1.4 H Neut % (Auto) 69.6 Lymph % (Auto) 19.6 L Elk % (Auto) 7.1 Eos % (Auto) 1.4 Baso % (Auto) 0.9 Lymph # (Auto) 1.4 Elk # (Auto) 0.5 Eos # (Auto) 0.1 Baso # (Auto) 0.1 Abs Immat Gran (auto) 0.10 H Absolute Neuts (auto) 4.8 Absolute Nucleated RBC 0.000 Nucleated RBC % (auto) 0.0 Sodium 136 Potassium 4.1 D Chloride 97 Carbon Dioxide 28 Anion Gap 15 BUN 31 H Creatinine 5.32 H* Estim Creat Clear Calc 14.6 Estimated GFR 9 Random Glucose 96 Calcium 8.4 D Phosphorus 9.8 H Troponin I High Sens 71.1 H* Preliminary micro results at discharge 11/15/24 07:36 Blood Culture - Preliminary Blood - Venous No growth after 24 hours. 11/15/24 07:36 Blood Culture - Preliminary Blood - Venous No growth after 24 hours. Discharge Plan Discharge Anticipated Discharge Date/Time: 11/16/24 10:34 Patient Disposition: Home, Self-Care Discharge Diagnosis: Hyperkalemia, ESRD on HD Referrals: Physician,None [Primary Care Provider] - 1 Week Raoul Dooley MD [Physician] - 1 Week Discharge Medications: New nifedipine 30 mg Tablet Extended Release 24hr 60 mg PO DAILY Qty: 90 0RF Protocol: Hold for SBP< HOLD for SBP < : 90 hydralazine 50 mg Tablet 50 mg PO TID Qty: 270 0RF Protocol: Hold for SBP< HOLD for SBP < : 90 Continued sevelamer carbonate 800 mg tablet 800 mg PO TIDWM Lokelma 10 gram powder in packet 10 g PO SUTUTHSA doxycycline hyclate 100 mg tablet 100 mg PO BID Qty: 20 0RF carvedilol 12.5 mg Tablet 12.5 mg PO BID Qty: 60 1RF Protocol: Hold for SBP/HR < HOLD for SBP < : 90 HOLD for HR < : 60 methadone [Methadose] 10 mg/mL Concentrate 50 mg PO DAILY@0800 30 Days Qty: 30 0RF Rx Instructions: Partial Fill upon patient request. levetiracetam [Keppra] 500 mg tablet 500 mg PO BID Qty: 60 3RF Discontinued nifedipine 30 mg tablet extended release 24hr 30 mg PO DAILY 9 Days Qty: 90 0RF hydralazine 25 mg tablet 25 mg PO BID Protocol: Hold for SBP< HOLD for SBP < : 90 Diet: Advance to usual diet Activity on Discharge: As tolerated Stand Alone Forms: Patient Portal Discharge page Print Language: Lithuanian Care Plan Goals: Continue with hemodialysis as scheduled to maintain renal function and electrolyte levels Continued to take medications exactly as prescribed Follow-up with Dr. Dooley Health Concerns: ESRD on HD with noncompliance Hypertension with antihypertensive noncompliance Hyperkalemia-chronic Plan of Treatment: Continue with hemodialysis schedule as advised by Nephrology. Follow-up with Dr. Dooley as scheduled Continue Lokelma as well as HD above to maintain potassium levels Follow low-sodium, low potassium diet Continue with labs as ordered by Nephrology at HD Opioid use disorder with ongoing IV drug abuse Discontinue use of all illicit substances, continue following with [facility] for methadone You have declined HIV/hepatitis testing. Declined addiction medicine consult while in the hospital Uncontrolled hypertension Increase nifedipine to 60 mg daily. Increase hydralazine to 50 mg 3 times daily. Continue carvedilol 12.5 mg daily Compliance with HD is necessary to maintain normal blood pressures as well Assessment: See above. See discharge summary
[2024-11-16] MEDS: Heparin Sodium,Porcine 5,000 UNIT/ML VIAL 5000 UNIT SUBCUT (11:42)
[2024-11-16] MEDS: hydrALAZINE HCl 50 MG TABLET PO ×2 (12:07→15:31)
--- NOTE | 2024-11-16 15:27 | MHC.CM.PN ---
Addendum entered by Corrina Beach 11/17/24 07:47: Patient was dc to home yesterday, after CM hours. DC Paperwork has been sent to [employer]. Original Note: Per ARACELI/Katalina, Patient may dc to home today, pending one more BP. CM met with Patient at bedside to discuss a possible dc later today;Patient indicated that she will call an uber for herself if indeed she is dc'd today. RN is aware.
== END 2024-11-16 19:01 | disposition home health service (06) | DRG 425 ==
LOC: HO.ED 07:25 → HO.EDOVER 10:08 → HO.IMC 12:45
PROVIDERS: Emergency Medicine; Admitting Provider Physician Assistant; Emergency Provider Emergency Medicine; Visit Provider Physician Assistant
DX: E87.5 Hyperkalemia (principal); I12.0 Hypertensive chronic kidney disease with stage 5 chronic kidney disease or end stage renal disease; I16.0 Hypertensive urgency; N18.6 End stage renal disease; F11.20 Opioid dependence, uncomplicated; G40.909 Epilepsy, unspecified, not intractable, without status epilepticus; F17.210 Nicotine dependence, cigarettes, uncomplicated; Z71.6 Tobacco abuse counseling; Z91.148 Patient's other noncompliance with medication regimen for other reason; Z91.158 Patient's noncompliance with renal dialysis for other reason; Z99.2 Dependence on renal dialysis; Z79.899 Other long term (current) drug therapy
CPT/HCPCS: 36415; 70450; 80048; 80053; 80177; 83605; 83735; 84100; 84484; 85025; 87040; 90999; 93005; 94640; 99285; J0360; J1171; J1644; J1920; J2405; J2765

== ENCOUNTER → 2024-11-15 02:38 | Outpatient (BNV) | payer MEDICAID, SELFPAY | PROVIDERS: Admitting Provider Physician Assistant; Emergency Provider Emergency Medicine; Visit Provider Internal Medicine | DX: R00.1 Bradycardia, unspecified (principal); R07.9 Chest pain, unspecified | CPT/HCPCS: 93010 ==

== ENCOUNTER → 2024-11-15 03:16 | Outpatient (BNV) | payer MEDICAID, SELFPAY | PROVIDERS: Emergency Provider Emergency Medicine; Visit Provider Radiology Vascular & Interventional Radiology | DX: I10 Essential (primary) hypertension (principal); R51.9 Headache, unspecified | CPT/HCPCS: 70450 ==

== ENCOUNTER → 2024-11-15 10:01 | Outpatient (BNV) | payer MEDICAID, SELFPAY | PROVIDERS: Admitting Provider Physician Assistant; Emergency Provider Emergency Medicine; Visit Provider Physician Assistant | DX: R11.10 Vomiting, unspecified (principal); I16.0 Hypertensive urgency; R79.89 Other specified abnormal findings of blood chemistry; E87.5 Hyperkalemia; N18.6 End stage renal disease; Z99.2 Dependence on renal dialysis | CPT/HCPCS: 99223; 99239 ==

== ENCOUNTER 2024-11-25 08:17 | Inpatient (IN) | payer MEDICAID, SELFPAY ==
[2024-11-25] VITALS (14 sets, daily range): BP systolic 180–250; BP diastolic 92–154; PULSE 60–89; RESP 12–16; TEMP 36.6–37.3; O2SAT 94–100; BMI 21.0
--- NOTE | ~2024-11-25 | XR_ITS ---
EXAMINATION: XR CHEST CLINICAL INFORMATION: dyspnea COMPARISON: October 25, 2024. TECHNIQUE: Frontal view of the chest was obtained. FINDINGS: Cardiomediastinal silhouette overlaps partially the right hemithorax due to patient's positioning. Pulmonary reticular pattern. No consolidation, pleural effusion or pneumothorax. Cardiomediastinal silhouette size is mildly prominent. Multilevel thoracic stenosis. Right-sided double lumen central venous line catheter ends at the right atrium region. XR/XR chest 1V IMPRESSION: No acute airspace disease. Stable chest. Electronically signed by: Dallas Hernandez MD 11/25/2024 10:04 AM EDT
--- NOTE | ~2024-11-25 | CT_ITS ---
EXAMINATION: CT HEAD WITHOUT CONTRAST (STROKE PROTOCOL) CLINICAL INFORMATION: Hypertension. Dysphagia COMPARISON: November 15, 2024 TECHNIQUE: Contiguous axial imaging was performed from the skull base to vertex without intravenous administration of contrast. This CT examination was performed using dose optimization techniques as appropriate, variously including the following: *Automated exposure control *Adjustment of mA and/or kV according to patient size (this includes techniques or standardized protocols for targeted exams where dose is matched to indication/reason for exam; i.e. extremities or head) *Use of iterative reconstruction technique. DLP: 578 mg centimeter. FINDINGS: No acute intracranial hemorrhage, mass effect, midline shift, hydrocephalus or herniation. Pratt-white matter differentiation is normal. Bilateral multifocal patchy and confluent periventricular white matter hypodensities throughout the cerebral and cerebellar. Calcified plaques in the V4 segments of the vertebral arteries and cavernous supraclinoid segments both ICAs. Multifocal old lacunar infarcts, basal ganglia and cerebellum. Sellar/suprasellar region demonstrated no gross masses or hemorrhage. Craniocervical junction is intact and normal. No air-fluid levels in the paranasal sinuses. Tympanic cavities and mastoid air cells are aerated. CT/CT head for STROKE IMPRESSION: No acute intracranial hemorrhage. White matter disease and old lacunar infarcts likely related to small vessel occlusive disease. Atherosclerosis disease, intracranial. This critical result was discussed with Dr. Elena Raymond at 8:40 AM hours on November 25, 2024. It was ascertained that the content and urgency of the report was understood at the time of direct communication. Electronically signed by: Dallas Hernandez MD 11/25/2024 08:44 AM EDT
--- NOTE | 2024-11-25 08:22 | ECG_ITS ---
Test Reason : HTN Blood Pressure : */* mmHG Vent. Rate : 86 BPM Atrial Rate : 86 BPM P-R Int : 104 ms QRS Dur : 76 ms QT Int : 376 ms P-R-T Axes : 54 -49 18 degrees QTcB Int : 449 ms Sinus rhythm with short ND Left anterior fascicular block Possible Anterior infarct , age undetermined Abnormal ECG When compared with ECG of 15-Nov-2024 08:38, No significant change was found Referred By: Elena Raymond Electronically Signed By: Tom Hansen
--- NOTE | 2024-11-25 08:29 | ED.NEUROSD ---
HPI - Neuro Symptoms/Deficit General Chief Complaint: Stroke Stated Complaint: HEADACHE DIZZINESS Source: patient, EMS and old records reviewed Mode of arrival: EMS Limitations: altered mental status History of Present Illness ED Provider: DARREL RIZVI Narrative: 49 yo female ESRD on HD MWF last HD today not a full course completed 3 hours, anemia, substance abuse, seizures on keppra, HTN who reportedly went to bed normal at 9pm then her TEXTILE EXAMINER came over this AM dosed her methadone and her other medications - they noted her to be confused, aphasia and very HTNive. They called EMS. Patient on arrival recognized me but then had issues with aphasia - seems receptive with mild dysarthria. She cannot provide any other history and she states she went to HD on Thursday. She has a headache as well. No seizures reported. patient states she was okay before bed but she is not reliable and I cannot use 9pm as a window. There is no other history. She is not a candidate for TNK or thrombectomy as I cannot confirm last known well. Onset (ago): unknown (last known well 9pm) Timing confirmed by: caregiver Location: speech and altered History of same: No Severity: moderate Relieving factors: none Exacerbating factors: none Context: other (unclear) On Anticoagulants: No Associated symptoms: headaches Treatments Prior to Arrival: none Related Data Home Medications ?Medication ?Instructions ?Recorded ?Confirmed sevelamer carbonate 800 mg tablet 800 mg PO TIDWM 09/24/24 11/15/24 sodium zirconium cyclosilicate 10 10 g PO SUTUTHSA 09/24/24 11/15/24 gram oral powder packet (Lokelma) Previous Rx's ?Medication ?Instructions ?Recorded carvedilol 12.5 mg tablet 12.5 mg PO BID #60 tabs 10/28/24 methadone 10 mg/mL oral 50 mg (5 mL) PO DAILY@0800 30 days 10/28/24 concentrate (Methadose) #30 mL doxycycline hyclate 100 mg tablet 100 mg PO BID #20 tabs 11/09/24 levetiracetam 500 mg tablet 500 mg PO BID #60 tabs 11/12/24 (Keppra) hydralazine 50 mg tablet 50 mg PO TID #270 tabs 11/16/24 nifedipine 30 mg tablet,extended 60 mg PO DAILY #90 tabs 11/16/24 release 24 hr Allergies Allergy/AdvReac Type Severity Reaction Status Date / Time No Known Allergies Allergy Verified 11/25/24 08:39 Review of Systems Review of Systems: ROS unable to be obtained due to altered mental status [facility] Past Medical History Attestation statement: The following information was validated with the patient. Source: old records reviewed Medical History Traumatic hematoma of left upper arm Seizure Opioid use disorder Hypertension, uncontrolled Anemia due to chronic kidney disease ESRD (end stage renal disease) on dialysis Medical non-compliance Norovirus Clostridioides difficile diarrhea Anemia HTN (hypertension) Drug abuse ESRD (end stage renal disease) Social History Social History Household Members: Friend(s) Housing: Apartment Do you presently have visiting nurse or other home services: Yes Alcohol intake: unknown Comment: pt refusing bed alarm and yellow fall socks Patient Tobacco Use Status: Current someday Tobacco user Substance Use Type: IV Drugs Advance Directives: Yes Advance Directives on File: Yes Advance Directives Date on File: 09/25/24 service: No Physical Exam Vital Signs: Vital Signs: Last Vital Signs Temp 97.9 F 11/25/24 08:34 Pulse 80 11/25/24 10:00 Resp 12 11/25/24 10:00 BP 200/115 H 11/25/24 10:39 Pulse Ox 98 11/25/24 08:34 O2 Del Method Room Air 11/25/24 08:34 BMI result Body Mass Index 21.0 Appearance: Alert. Oriented X 2. No acute distress. Eyes: Pupils equal, round and reactive to light. ENT: Pharynx normal. Neck: Normal inspection. Neck supple. CVS: Normal heart rate and rhythm. Pulses normal. Respiratory: No respiratory distress. Breath sounds normal. Abdomen: Soft and nontender. Skin: Skin warm and dry. pale skin color. poor skin turgor. Extremities: 1+ symmetric pitting ankle lower extremity edema. No calf ttp Neuro: Oriented X 2. No motor deficit. No sensory deficit. CN2-12 intact she has issues with fluent speech then stutters and has slurred speech Course Course Course Narrative: 20mg IV labetalol ordered IV hydralazine as well elevated K - calcium, HCO3, lokelma - no EKG changes, holding insulin has hx of sig drop in BS with it. speech improved she is clearing - BP still up will hold CTA as speech cleared and she also has no other deficits. Reevaluation(s) Reevaluation #1: BP is coming down she is having more diarrhea - lomotil worked will repeat c diff study Medications Administered Generic Name Dose Route Start Last Admin Trade Name Freq PRN Reason Stop Dose Admin Calcium Gluconate 2 gm in 100 mls @ 50 mls/hr 11/25/24 08:55 11/25/24 09:51 Calcium Gluconate IV 11/25/24 10:54 50 mls/hr ONCE ONE Administration Discontinued Medications Generic Name Dose Route Start Last Admin Trade Name Freq PRN Reason Stop Dose Admin Hydralazine HCl 10 mg 11/25/24 09:58 11/25/24 10:04 Hydralazine Hcl 20 Mg/Ml Vial IVPUSH 11/25/24 09:59 10 mg ONCE ONE Administration Protocol Levetiracetam 500 mg in 100 mls @ 400 mls/hr 11/25/24 08:55 11/25/24 09:51 Keppra IV 11/25/24 09:09 Infused ONCE ONE Infusion Labetalol HCl 10 mg 11/25/24 08:32 11/25/24 09:23 Labetalol Hcl 100 Mg/20 Ml Vial IVPUSH 11/25/24 08:33 10 mg ONCE ONE Administration Labetalol HCl 10 mg 11/25/24 09:37 11/25/24 09:50 Labetalol Hcl 100 Mg/20 Ml Vial IVPUSH 11/25/24 09:38 10 mg ONCE ONE Administration Lidocaine HCl 5 ml 11/25/24 08:58 11/25/24 09:21 Lidocaine Hcl 1 % Mpf 5 Ml Vial SUBCUT 11/25/24 08:59 Not Given ONCE ONE Nitroglycerin 1 inch 11/25/24 10:15 11/25/24 10:24 Nitroglycerin 2 % Oint 1 Gm Packet TRANSDERMA 11/25/24 10:16 1 inch ONCE ONE Administration Ondansetron HCl 4 mg 11/25/24 08:32 11/25/24 09:23 Ondansetron Hcl 4 Mg/2 Ml Vial IVPUSH 11/25/24 08:33 4 mg ONCE ONE Administration Sodium Bicarbonate 50 meq 11/25/24 09:59 05/02/25 10:04 Sodium Bicarbonate 8.4% 50 Meq/50 Ml Syringe IVPUSH 11/25/24 10:00 50 meq ONCE ONE Administration Sodium Zirconium Cyclosilicate 5 gm 11/25/24 09:59 11/25/24 10:04 Sodium Zirconium Cyclosilicate 5 Gm Powd.Pack PO 11/25/24 10:00 5 gm ONCE ONE Administration Procedures EJ/Peripheral Line Arm L: Time Out Performed: Yes Skin Cleansed in Sterile Fashion: Yes Size (gauge): 20 IV Secured and Dressing Applied: Yes Patient Tolerated Procedure: well and no complications Additional Comments: US guided Medical Decision Making Medical Decision Making [facility] [place] Narrative: 49 yo female ESRD on HD MWF last HD today not a full course completed 3 hours, anemia, substance abuse, seizures on keppra, HTN here with c/o AMS and HTN - at this time will obtain STAT head CT, start on IV labetalol, resendez labs and work up. She has hx of same I am likely going to load with her keppra as well. She states she took her medications but I do not believe this based off her BPs. Broad differential plan is to get stat CT head and BPs down. She will likely go for CTA after she is more stabilized - she is actively vomiting. Her neuro exam is less likely to be LVO. empiric IV calcium load pending labs Differential Diagnosis Differential Diagnoses: The differential diagnosis associated with the presentation includes HTN crisis, ICH, drug disorder, non compliance, hyper K Admission/Observation Consideration of admission/observation: Escalation of care including admission/observation considered admit for HD Consult Healthcare Provider Management of the patient was discussed with: Hospitalist (will admit) and Merchandising Specialist (call to [facility] 1022am) Dr. Dooley will arrange HD today Lab Data [facility] [place] Lab Attestation statement: I reviewed the patient's lab results. 11/25/24 09:13 11/25/24 09:13 Labs: Lab Results 11/25/24 11/25/24 11/25/24 Range/Units 08:24 08:26 09:12 WBC (4.8-10.8) X10*3/uL RBC (4.20-5.50) X10*6/uL Hgb (12.0-16.0) g/dl Hct (37.0-47.0) % MCV (80.0-98.0) fL MCH (27.0-33.0) pg MCHC (31.0-35.0) g/dl RDW (11.0-16.0) % Plt Count (160-400) X10*3/uL MPV (9.4-12.3) fL Immature Gran % (Auto) (0.0-0.4) % Neut % (Auto) (45-73) % Lymph % (Auto) (20-40) % Mower % (Auto) (2-11) % Eos % (Auto) (0-4) % Baso % (Auto) (0-2) % Lymph # (Auto) (1.2-4.9) X10*3/uL Mower # (Auto) (0.1-1.2) X10*3/uL Eos # (Auto) (0.0-0.4) X10*3/uL Baso # (Auto) (0.0-0.2) X10*3/uL Abs Immat Gran (auto) (0.00-0.03) X10*3/uL Absolute Neuts (auto) (2.0-8.3) x10*3/uL Absolute Nucleated RBC (0.0-0.012) X10*3/uL Nucleated RBC % (auto) (0.0-0.2) /100WBC PT (10.9-12.4) SEC Whole Blood PT 14.1 H (11.1-13.5) sec INR (0.9-1.1) Whole Blood INR 1.2 H (0.9-1.1) VBG pH (7.32-7.43) VBG pCO2 mmHg VBG pO2 mmHg VBG HCO3 (22-26) mmol/L VBG O2 Saturation % VBG Base Excess mmol/L Sodium (135-145) mmol/L Potassium (3.3-5.1) mmol/L Chloride (96-108) mmol/L Carbon Dioxide (22-29) mmol/L Anion Gap (12-20) BUN (9-16) mg/dL Creatinine (0.5-1.4) mg/dL Estim Creat Clear Calc Estimated GFR POC Glucose 82 (60-115) mg/dL Random Glucose (60-115) mg/dL Lactic Acid (0.5-2.0) mmol/L Calcium (8.4-10.2) mg/dL Magnesium (1.6-2.6) mg/dL Total Bilirubin (0.0-1.0) mg/dL Direct Bilirubin (0.0-0.5) mg/dL AST (5-31) U/L ALT (0-31) U/L Alkaline Phosphatase (39-117) U/L Troponin I High Sens (<3.5-17.0) ng/L C-Reactive Protein (< or = 0.50) mg/dL B-Natriuretic Peptide (<100) pg/mL Total Protein (6.5-8.0) g/dL Albumin (3.5-5.0) g/dL Lipase (8-78) U/L Ethyl Alcohol Cancelled Influenza Type A (PCR) (Negative) Influenza Type B (PCR) (Negative) RSV RNA Qual (PCR) (Negative) SARS-CoV-2 RNA (RT-PCR) (Negative) 11/25/24 11/25/24 11/25/24 Range/Units 09:13 09:17 09:25 WBC 11.4 H (4.8-10.8) X10*3/uL RBC 3.23 L (4.20-5.50) X10*6/uL Hgb 9.9 L (12.0-16.0) g/dl Hct 30.9 L (37.0-47.0) % MCV 95.7 (80.0-98.0) fL MCH 30.7 (27.0-33.0) pg MCHC 32.0 (31.0-35.0) g/dl RDW 14.6 (11.0-16.0) % Plt Count 227 (160-400) X10*3/uL MPV 10.5 (9.4-12.3) fL Immature Gran % (Auto) 0.4 (0.0-0.4) % Neut % (Auto) 84.3 H (45-73) % Lymph % (Auto) 7.4 L (20-40) % Mower % (Auto) 6.2 (2-11) % Eos % (Auto) 0.8 (0-4) % Baso % (Auto) 0.9 (0-2) % Lymph # (Auto) 0.8 L (1.2-4.9) X10*3/uL Mower # (Auto) 0.7 (0.1-1.2) X10*3/uL Eos # (Auto) 0.1 (0.0-0.4) X10*3/uL Baso # (Auto) 0.1 (0.0-0.2) X10*3/uL Abs Immat Gran (auto) 0.05 H (0.00-0.03) X10*3/uL Absolute Neuts (auto) 9.6 H (2.0-8.3) x10*3/uL Absolute Nucleated RBC 0.000 (0.0-0.012) X10*3/uL Nucleated RBC % (auto) 0.0 (0.0-0.2) /100WBC PT 11.8 (10.9-12.4) SEC Whole Blood PT (11.1-13.5) sec INR 1.0 (0.9-1.1) Whole Blood INR (0.9-1.1) VBG pH 7.37 (7.32-7.43) VBG pCO2 53 mmHg VBG pO2 42 mmHg VBG HCO3 31 H (22-26) mmol/L VBG O2 Saturation 57.0 % VBG Base Excess 5.4 mmol/L Sodium 138 (135-145) mmol/L Potassium 6.3 H* D (3.3-5.1) mmol/L Chloride 95 L (96-108) mmol/L Carbon Dioxide 24 (22-29) mmol/L Anion Gap 25 H (12-20) BUN 57 H (9-16) mg/dL Creatinine 7.24 H* (0.5-1.4) mg/dL Estim Creat Clear Calc 7.4 Estimated GFR 6 POC Glucose (60-115) mg/dL Random Glucose 86 (60-115) mg/dL Lactic Acid 0.7 (0.5-2.0) mmol/L Calcium 8.8 (8.4-10.2) mg/dL Magnesium 1.8 (1.6-2.6) mg/dL Total Bilirubin 0.7 (0.0-1.0) mg/dL Direct Bilirubin 0.2 (0.0-0.5) mg/dL AST 27 (5-31) U/L ALT 9 (0-31) U/L Alkaline Phosphatase 99 (39-117) U/L Troponin I High Sens 75.5 H* (<3.5-17.0) ng/L C-Reactive Protein 3.92 H (< or = 0.50) mg/dL B-Natriuretic Peptide 3053 H (<100) pg/mL Total Protein 6.7 (6.5-8.0) g/dL Albumin 3.7 (3.5-5.0) g/dL Lipase 32 (8-78) U/L Ethyl Alcohol < 10 Influenza Type A (PCR) NEGATIVE (Negative) Influenza Type B (PCR) NEGATIVE (Negative) RSV RNA Qual (PCR) NEGATIVE (Negative) SARS-CoV-2 RNA (RT-PCR) NEGATIVE (Negative) Independent Interpretation I performed an independent interpretation of an: EKG, Plain X-Ray and CT Scan (negative for ICH/mass) Interpretation: Rate: 86 Rhythm: NSR [place]: left Normal P waves. Normal KELLY. Normal QRS complex. ST T wave : no NARCISA, inverted t wave V1 qTC: 449 prior studies: no acute ischemia The study has been interpreted contemporaneously by me. . Radiology Impression Discussion of test interpretation with radiology: I discussed test interpretation with the radiologist and I have reviewed the radiologist's reading. Independent Historian Clinical information obtained from an independent historian. History obtained from or confirmed by: EMS External Record Review External record reviewed: Inpatient record and Outpatient record NIH Stroke Scale Internal: Initial- Upon Arrival Level of Consciousness: Alert Level of Consciousness Questions: Answers one question correctly Level of Consciousness Commands: Performs both tasks correctly Best Gaze: Normal Visual: No visual loss Facial Palsy: Normal Motor Arm (Right): No drift Motor Arm (Left): No drift Motor Leg (Right): No drift Motor Leg (Left): No drift Limb Ataxia: Absent Sensory: Normal Best Language: Mild to moderate aphasia Dysarthia: Mild to moderate dysarthria Extinction and Inattention: No abnormality Score: 3 Critical Care Time Critical Care Time Critical Care Time: Yes Total Critical Care Time: 60 Attestation: Time is exclusive of separately billable procedures. Time includes: direct patient care, patient reassessment, coordination of patient care, interpretation of data (laboratory data, pulse oximetry, venous blood gases and chest xrays), review of patient's medical records, medical consultation and documentation of patient care. Procedures excluded from critical care time: electrocardiography. K+ hyper treatment - IV calcium, repeat IV HTNive medications I attest to this time spent taking care of the patient Discharge Plan Discharge Clinical Impression: Hypertensive crisis, Encephalopathy, hypertensive, Acute hyperkalemia Patient Disposition: Admitted As Inpatient Prescriptions: No Action sevelamer carbonate 800 mg tablet 800 mg PO TIDWM Lokelma 10 gram powder in packet 10 g PO SUTUTHSA doxycycline hyclate 100 mg tablet 100 mg PO BID Qty: 20 0RF carvedilol 12.5 mg Tablet 12.5 mg PO BID Qty: 60 1RF Protocol: Hold for SBP/HR < HOLD for SBP < : 90 HOLD for HR < : 60 methadone [Methadose] 10 mg/mL Concentrate 50 mg PO DAILY@0800 30 Days Qty: 30 0RF Rx Instructions: Partial Fill upon patient request. levetiracetam [Keppra] 500 mg tablet 500 mg PO BID Qty: 60 3RF nifedipine 30 mg Tablet Extended Release 24hr 60 mg PO DAILY Qty: 90 0RF Protocol: Hold for SBP< HOLD for SBP < : 90 hydralazine 50 mg Tablet 50 mg PO TID Qty: 270 0RF Protocol: Hold for SBP< HOLD for SBP < : 90 Print Language: Maltese
[2024-11-25 08:30] LABS: Prothrombin Time Whole Bld POC 14.1 sec (11.1-13.5); ~PT, ~INR - Anti Coag Clinic 1.2 (0.9-1.1)
[2024-11-25 08:31] LABS: Glucose, Whole Blood 82 mg/dL (60-115)
[2024-11-25] MEDS: ondansetron HCL 4 MG/2 ML VIAL IVPUSH ×3 (09:23→22:15)
[2024-11-25] MEDS: Labetalol HCL 100 MG/20 ML VIAL 10 MG IVPUSH ×2 (09:23→09:50)
[2024-11-25] MEDS: levETIRAcetam in NaCl (iso-os) 500 MG/100 ML PIGGYBACK 400 MG IV (09:23)
[2024-11-25 09:27] LABS: Venous Blood Gas Refer to POC result
[2024-11-25 09:27] LABS: MANUAL DIFF FLAG NO
[2024-11-25 09:28] LABS: Basophils Absolute Auto 0.1 X10*3/uL (0.0-0.2); Basophils Percent Auto 0.9 % (0-2); Eosinophils Absolute Auto 0.1 X10*3/uL (0.0-0.4); Eosinophils Percent Auto 0.8 % (0-4); Hematocrit 30.9 % (37.0-47.0); Hemoglobin 9.9 g/dl (12.0-16.0); Imm Gran Abs Auto 0.05 X10*3/uL (0.00-0.03); Imm Gran Pct Auto 0.4 % (0.0-0.4); Lymphocytes Absolute Auto 0.8 X10*3/uL (1.2-4.9); Lymphocytes Percent Auto 7.4 % (20-40); Mean Corpuscular Hemoglobin 30.7 pg (27.0-33.0); Mean Corpuscular Volume 95.7 fL (80.0-98.0); Mean Platelet Volume 10.5 fL (9.4-12.3); Monocytes Absolute Auto 0.7 X10*3/uL (0.1-1.2); Monocytes Percent Auto 6.2 % (2-11); Neutrophils Absolute Auto 9.6 x10*3/uL (2.0-8.3); Neutrophils Percent Auto 84.3 % (45-73); Platelet Count 227 X10*3/uL (160-400); Red Blood Count 3.23 X10*6/uL (4.20-5.50); Red Cell Distribution Width 14.6 % (11.0-16.0); White Blood Count 11.4 X10*3/uL (4.8-10.8)
[2024-11-25 09:30] LABS: VBG Base Excess 5.4 mmol/L; VBG HCO3 31 mmol/L (22-26); VBG pCO2 53 mmHg; VBG pH 7.37 (7.32-7.43); VBG pO2 42 mmHg
[2024-11-25 09:34] LABS: Prothrombin Time 11.8 SEC (10.9-12.4)
[2024-11-25 09:46] LABS: Lactic Acid 0.7 mmol/L (0.5-2.0)
[2024-11-25 09:47] LABS: Alanine Aminotransferase 9 U/L (0-31); Albumin Level 3.7 g/dL (3.5-5.0); Alkaline Phosphatase 99 U/L (39-117); Aspartate Amino Transferase 27 U/L (5-31); Bilirubin Direct 0.2 mg/dL (0.0-0.5); Bilirubin Total 0.7 mg/dL (0.0-1.0); Blood Urea Nitrogen 57 mg/dL (9-16); C Reactive Protein 3.92 mg/dL (< or = 0.50); Calcium 8.8 mg/dL (8.4-10.2); Ethanol < 10 mg/dL; Glucose Random 86 mg/dL (60-115); Lipase 32 U/L (8-78); Magnesium 1.8 mg/dL (1.6-2.6); Total Protein 6.7 g/dL (6.5-8.0)
[2024-11-25] MEDS: Calcium Gluconate/NaCl,Iso-Osm 2 GM/100 ML PLAST..BAG IV (09:51)
[2024-11-25 09:52] LABS: B Type Natriuretic Peptide 3053 pg/mL (<100)
[2024-11-25 09:59] LABS: Troponin-I High Sensitivity 75.5 ng/L (<3.5-17.0)
[2024-11-25 10:00] LABS: Anion Gap 25 (12-20); Carbon Dioxide 24 mmol/L (22-29); Chloride 95 mmol/L (96-108); Creatinine Clr Calc Pharmacy 7.4; Estimated Glomerular Filt Rate 6; Potassium 6.3 mmol/L (3.3-5.1); Sodium 138 mmol/L (135-145)
[2024-11-25] MEDS: Sodium Zirconium Cyclosilicate 5 GM POWD.PACK PO (10:04)
[2024-11-25] MEDS: hydrALAZINE HCl 20 MG/ML VIAL 10 MG IVPUSH (10:04)
[2024-11-25] MEDS: Sodium Bicarbonate 8.4% 50 MEQ/50 ML SYRINGE IVPUSH (10:04)
[2024-11-25 10:08] LABS: Influenza A PCR NEGATIVE (Negative); Influenza B PCR NEGATIVE (Negative); Resp Syncy Virus RNA Qual PCR NEGATIVE (Negative); SARS COV2 PCR INHOUSE NEGATIVE (Negative)
--- NOTE | 2024-11-25 10:16 | PC.NURSE ---
patient presenting from home where visiting nurse noted patient to be altered from baseline and asking weird questions . per EMS, patient hypertensive 200's/100's. patient also complaining of dizziness and headache. brought to CT scan for head CT. patient difficult IV stick, nurse in room to attempt US guided IV x2 with no success. provider at bedside - 20IV US guided IV in left upper arm. patient appearing more alert and oriented at this time, answering questions appropriately. also complaining of diarrhea for four days ?being treated for c. diff. patient able to stand independently with this RN in room to use bedside commode. patient cleaned and placed back into bed. remains hypertensive at this time, still complaining of headache. medicated per the SEP. patient was due to have dialysis today - states she did go on thursday and is due this afternoon. patient resting in room watching television with call winkler within reach.
[2024-11-25] MEDS: Nitroglycerin 2 % Oint 1 GM Packet 1 INCH TRANSDERMA (10:24)
--- NOTE | 2024-11-25 11:04 | PM.IMHP ---
History of Present Illness Date of Service: 11/25/24 Attending physician on admission: Orlando Gonzalez Chief Complaint: High blood pressure, confusion Pt is a 49-year-old female with a PMH significant for?ESRD on HD M/W/F w/ hx of noncompliance, chronic hyperkalemia on Lokelma, seizure disorder, anemia of chronic disease, substance use disorder on methadone, and current IVDU who presents to the ED from home for evaluation of confusion and high blood pressure. Pt was seen at home earlier today by VNA to administer methadone dose. VNA found pt to be slightly confused, asking ?weird? questions, having difficulty speaking, as well as hypertensive with SBP >200. Upon presentation to the ED pt was found to be hypertensive up to 234/123 and appeared occasionally altered and aphasic to ED provider. Patient's mentation improved after BP became better controlled. Currently alert and oriented x3. Has multiple complaints, including headache, blurriness, lightheadedness, and dizziness. Has also been experiencing central abdominal pain and diarrhea every few hours for the past couple of weeks. Some nausea, 1-2 episodes of vomiting. Denies chest pain/pressure. No significant SOB or difficulty breathing. Pt has a long hx of questionable compliance with hemodialysis and home medications. Reports trying to cut back on heroin use, though currently still injecting intramuscularly daily. Has not been producing urine x5 months. In the ED pt was hypertensive up to 234/123, vitals otherwise stable and WNL. Labs were significant for slight leukocytosis of 11.4, stable normocytic anemia of 9.9/30.9, potassium 6.3, anion gap 25, BUN 57, creatinine 7.24 (previous 5.32 on 11/16), initial troponin 75.5 (in line with prior), worsening BNP of 3253, and chronically elevated CRP of 3.92. Lactic acid WNL. Hepatic function WNL. Tested negative for flu, RSV, COVID. CXR showed no acute airspace disease. CT?of head negative for acute intracranial hemorrhage, though did show atherosclerotic disease, white matter disease and old lacunar infarcts likely secondary to small-vessel occlusive disease. EKG demonstrated sinus rhythm with short FL, but no evidence of significant ST elevations or depressions. Pt was treated in the ED with ondansetron, Keppra IV, labetalol 10 mg IV x2, hydralazine 10 mg IV, nitro paste, calcium gluconate, Lokelma, and bicarb. Pt is admitted to the hospital for treatment and further evaluation of hypertensive urgency with acute hypertensive encephalopathy, and hyperkalemia likely in the setting of ESRD noncompliant with hemodialysis. Review of Systems Review of Systems: Negative except for that which is stated in the HPI. [facility] Medical History Traumatic hematoma of left upper arm Seizure Opioid use disorder Hypertension, uncontrolled Anemia due to chronic kidney disease ESRD (end stage renal disease) on dialysis Medical non-compliance Norovirus Clostridioides difficile diarrhea Anemia HTN (hypertension) Drug abuse ESRD (end stage renal disease) Social History Household Members: Friend(s) Housing: Apartment Do you presently have visiting nurse or other home services: Yes Alcohol intake: unknown Comment: pt refusing bed alarm and yellow fall socks Patient Tobacco Use Status: Current someday Tobacco user Substance Use Type: IV Drugs Advance Directives: Yes Advance Directives on File: Yes Advance Directives Date on File: 09/25/24 service: No Meds Allergies Allergy/AdvReac Type Severity Reaction Status Date / Time No Known Allergies Allergy Verified 11/25/24 08:39 Home Medications ?Medication ?Instructions ?Recorded ?Confirmed ?Last Taken ?Type sevelamer carbonate 800 mg tablet 800 mg PO TIDWM 09/24/24 11/25/24 11/24/24 History sodium zirconium cyclosilicate 10 10 g PO MOWEFR 09/24/24 11/25/24 11/25/24 History gram oral powder packet (Lokelma) Physical Exam Vital Signs and Narrative: Vital Signs: Last Vital Signs Temp 97.9 F 11/25/24 08:34 Pulse 80 11/25/24 10:00 Resp 12 11/25/24 10:00 BP 196/112 H 11/25/24 10:42 Pulse Ox 98 11/25/24 08:34 O2 Del Method Room Air 11/25/24 08:34 BMI result Body Mass Index 21.0 General: AOx3, frail looking, no acute distress Resp: CTA bilaterally CVS: S1, S2, RRR GI: +BS, no distention, mild epigastric tenderness Skin: Warm, dry Neuro: Cranial nerves II-XII grossly intact bilaterally. Motor grossly intact bilaterally. Minor left hand resting tremor Extremities: 2+ bilateral pitting edema Psych: Appropriate affect Results Labs 11/25/24 09:13 11/25/24 09:13 Labs: Laboratory Results - last 24 hr 11/25/24 11/25/24 11/25/24 08:24 08:26 09:12 MCV MCH MCHC RDW Plt Count MPV Immature Gran % (Auto) Neut % (Auto) Lymph % (Auto) [place] % (Auto) Eos % (Auto) Baso % (Auto) Lymph # (Auto) [place] # (Auto) Eos # (Auto) Baso # (Auto) Abs Immat Gran (auto) Absolute Neuts (auto) Absolute Nucleated RBC Nucleated RBC % (auto) PT Whole Blood PT 14.1 H INR Whole Blood INR 1.2 H VBG pH VBG pCO2 VBG pO2 VBG HCO3 VBG O2 Saturation VBG Base Excess Anion Gap Estim Creat Clear Calc Estimated GFR POC Glucose 82 Random Glucose Lactic Acid Calcium Magnesium Total Bilirubin Direct Bilirubin AST ALT Alkaline Phosphatase C-Reactive Protein B-Natriuretic Peptide Total Protein Albumin Lipase Ethyl Alcohol Cancelled Influenza Type A (PCR) Influenza Type B (PCR) RSV RNA Qual (PCR) SARS-CoV-2 RNA (RT-PCR) 11/25/24 11/25/24 11/25/24 09:13 09:17 09:25 MCV 95.7 MCH 30.7 MCHC 32.0 RDW 14.6 Plt Count 227 MPV 10.5 Immature Gran % (Auto) 0.4 Neut % (Auto) 84.3 H Lymph % (Auto) 7.4 L [place] % (Auto) 6.2 Eos % (Auto) 0.8 Baso % (Auto) 0.9 Lymph # (Auto) 0.8 L [place] # (Auto) 0.7 Eos # (Auto) 0.1 Baso # (Auto) 0.1 Abs Immat Gran (auto) 0.05 H Absolute Neuts (auto) 9.6 H Absolute Nucleated RBC 0.000 Nucleated RBC % (auto) 0.0 PT 11.8 Whole Blood PT INR 1.0 Whole Blood INR VBG pH 7.37 VBG pCO2 53 VBG pO2 42 VBG HCO3 31 H VBG O2 Saturation 57.0 VBG Base Excess 5.4 Anion Gap 25 H Estim Creat Clear Calc 7.4 Estimated GFR 6 POC Glucose Random Glucose 86 Lactic Acid 0.7 Calcium 8.8 Magnesium 1.8 Total Bilirubin 0.7 Direct Bilirubin 0.2 AST 27 ALT 9 Alkaline Phosphatase 99 C-Reactive Protein 3.92 H B-Natriuretic Peptide 3053 H Total Protein 6.7 Albumin 3.7 Lipase 32 Ethyl Alcohol < 10 Influenza Type A (PCR) NEGATIVE Influenza Type B (PCR) NEGATIVE RSV RNA Qual (PCR) NEGATIVE SARS-CoV-2 RNA (RT-PCR) NEGATIVE Imaging Radiologist's Impressions: Impressions Chest X-Ray 11/25/24 08:22 IMPRESSION: No acute airspace disease. Stable chest. Electronically signed by: Dallas Hernandez MD 11/25/2024 10:04 AM EDT RP Head CT 11/25/24 08:28 IMPRESSION: No acute intracranial hemorrhage. White matter disease and old lacunar infarcts likely related to small vessel occlusive disease. Atherosclerosis disease, intracranial. This critical result was discussed with Dr. Elena Raymond at 8:40 AM hours on November 25, 2024. It was ascertained that the content and urgency of the report was understood at the time of direct communication. Electronically signed by: Dallas Hernandez MD 11/25/2024 08:44 AM EDT RP Assessment and Plan (1) Encephalopathy, hypertensive: Status: Acute (2) Acute hyperkalemia: Status: Acute Plan Pt is a 49-year-old female with a PMH significant for?ESRD on HD M/W/F w/ hx of noncompliance, chronic hyperkalemia on Lokelma, seizure disorder, anemia of chronic disease, substance use disorder on methadone, and current IVDU who presents to the ED from home for evaluation of confusion and high blood pressure. Pt is admitted to the hospital for treatment and further evaluation of hypertensive urgency with acute hypertensive encephalopathy, and hyperkalemia likely in the setting of ESRD noncompliant with hemodialysis. Hypertensive urgency with acute hypertensive encephalopathy Pt with confusion, dysarthria, BP as high as 232/130 Pt complains of headache and blurred vision CTA of head negative for acute abnormalities Likely secondary to noncompliance with home medications and hemodialysis Pt given labetalol 10 mg IV x2, hydralazine 10 mg IV, and nitro paste in the ED Continue carvedilol, hydralazine, and nifedipine Treat with dialysis Monitor BP closely Hyperkalemia Potassium 6.3 at time presentation In the setting of ESRD with questionable HD compliance Pt given calcium gluconate and Lokelma in the ED Continue home Lokelma Treat with dialysis Monitor on telemetry ESRD on HD M/W/F Questionable compliance Nephrology consult, follows with STEPHANIENE Abdominal pain and diarrhea Reports ongoing for the past few weeks with 6+ episodes daily Tested positive for C diff gene and toxin on 11/11/2024 Previously treated in September for C diff, unclear whether treated again in October Will check C diff, GI panel ID consult if C diff positive Elevated troponin Initial troponin 75.05, similar to prior at 71.1 on 11/16 Troponins have been chronically elevated Pt without chest pain/pressure, palpitations Will repeat troponin Monitor on telemetry Opioid use disorder with ongoing IVDU Currently injecting intramuscularly due to lack of IV access Addiction medicine consult Continue methadone Seizure disorder Continue Kejesse Full Code Attending:?Dr. Gonzalez DVT Prophylaxis: Heparin Pt will require a hospitalization of at least two nights for treatment of?hypertensive urgency with hypertensive encephalopathy and hypokalemia likely in the setting of ESRD noncompliant with hemodialysis. Pt will require hospital level care for emergent dialysis and close monitoring of BP, mentation, electrolytes and kidney function, and cardiac function. Quality Stroke Does the patient have a stroke diagnosis?: No VTE Prior VTE?: No VTE Risk Level:: Medical - moderate - high VTE Device Contraindication: Treatment Not Indicated VTE Drug Contraindication: N/A - Med Ordered
--- OUTSIDE RECORDS SUMMARY | 2024-11-25 11:17 | XMS_ITS | Encounter Summary ---
Author Organization [employer] Address [address] [facility] [address] [place] [address] Care Team Providers Care Road Roller Operator Name Role Phone Simone Sloan PA-C Primary Care Provider [phone] Encounter Details Date Type Department Care Team ([facility] st Contact Info) Description 11/14/2024 Orders Only [facility] [address] [place] [address] Edilberto Montemayor MD [address] [place] [address] Social History Tobacco Use Types Packs/Day Years Used Date Smoking Tobacco: Never Assessed Comments Unknown Sex and Gender Information Value Date Recorded Sex Assigned at Not on file Legal Sex Female 6:23 PM EDT Gender Identity Female 05/23/2022 6:23 PM EDT Sexual Orientation Not on file documented as of this encounter Plan of Treatment Not on file documented as of this encounter Visit Diagnoses Not on filedocumented in this encounter Care Teams Road Roller Operator Relationship Specialty Start Date End Date Simone Sloan PA-C [address] [place] [phone] PCP - General Family Medicine 11/16/23 documented as of this encounter
--- OUTSIDE RECORDS SUMMARY | 2024-11-25 11:17 | XMS_ITS | Encounter Summary ---
Author Organization [facility] Address [address] [place] [phone] Phone Care Team Providers Care Metalsmith Apprentice Name Role Phone Unavailable Primary Care Provider Unavailabl e Encounter Details Date Type Department Care Team ([facility] st Contact Info) Description 10/13/2024 TCM in Dialysis Clinic [facility] [address] [phone] Carrillo Valerio MD [address] [phone] Social History Tobacco Use Types [...] 10/13/2024 The patient was seen for a [id number] visit as part of Transitional Care Management services. 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, unspecified Attending Photo Colorer: MARIA T FRAGOSO MD Dialysis Location: [facility] Schedule: Shift: 2 INTERACTIVE CONTACT Contact [...] not missing HD VISIT DIAGNOSES CPT Code 44700 - High complexity, seen 8-14 days post discharge or moderate complexity, seen [id number] days of discharge. N18.6 End stage renal disease Signed by: CARRILLO VALERIO MD on 10/13/2024 at 04:49:36 AM documented in this encounter Plan of Treatment Not on file documented as of this encounter Visit Diagnoses Not on filedocumented in this encounter
--- OUTSIDE RECORDS SUMMARY | 2024-11-25 11:18 | XMS_ITS | Clinical Summary ---
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 Herpes simplex 08/22/2021 Encounters Date Type Department Care Team Description 11/23/2024 Treatment [facility] [address] [phone] Raoul Dooley MD End stage renal disease; Dependence on renal dialysis; Amyloidosis 11/21/2024 Treatment [facility] [address] [phone] Raoul Dooley MD End stage renal disease; Dependence on renal dialysis; Amyloidosis 11/04/2024 Treatment [facility] [address] [phone] Raoul Dooley MD End stage renal disease; Dependence on renal dialysis; Amyloidosis 10/21/2024 Treatment [facility] [address] [phone] Raoul Dooley MD End stage renal disease; Dependence on renal dialysis; Amyloidosis 10/13/2024 TCM in Dialysis Clinic [facility] [address] [phone] Raoul Dooley MD 10/12/2024 Treatment [facility] [address] [place] [address] Raoul Dooley MD End stage renal disease; Dependence on renal dialysis; Amyloidosis 10/12/2024 Office Communication [facility] [address] [place] [phone] Raoul Dooley MD 09/14/2024 Treatment [facility] [address] [phone] Raoul Dooley MD 09/07/2024 Treatment [facility] [address] [phone] Raoul Dooley MD 08/29/2024 Treatment [facility] [address] [phone] Raoul Dooley MD from Last 3 Months [...] Name Priority Date/Time Associated Diagnosis Comments LIH (HC) Routine 11/23/2024 3:00 AM EDT POTASSIUM Routine 11/23/2024 3:00 AM EDT PHOSPHATE ( PHOSPHORUS) Routine 11/21/2024 3:00 AM EDT POTASSIUM Routine 11/21/2024 3:00 AM EDT LIH (HC) Routine 11/21/2024 3:00 AM EDT HEMOGLOBIN Routine 11/09/2024 3:00 AM EDT HEPATITIS B SURFACE ANTIGEN [...] AND DIFFERENTIAL Routine 09/02/2024 3:00 AM EST from Last 3 Months Results * LIH (11/23/2024 3:00 AM EDT) Only the most recent of9 resultswithin the time period is included. Lipemia Normal Normal [facility] Icterus Normal Normal [facility] Hemolysis Normal Normal [facility] 11/23/2024 3:00 AM EDT 11/24/2024 12:49 PM EDT Raoul Dooley MD LAB [id number] SOLICITED RESULTS Final Result Performing Organization Address [facility] de Phone Number APS [facility] [address] [place] [address] * (ABNORMAL) Potassium (11/23/2024 3:00 AM EDT) Only the most recent of2 resultswithin the time period is included. Potassium 6.5(H) 3.4 - 5.0 mEq/L [facility] 11/23/2024 3:00 AM EDT 11/24/2024 12:49 PM EDT us Raoul Dooley MD LAB BLOOD ORDERABLES Final Re sult Performing Organization Address [facility] de Phone Number [facility] [address] [place] [address] * (ABNORMAL) Phosphorus (11/21/2024 3:00 AM EDT) Only the most recent of2 resultswithin the time period is included. Phosphorus, Serum 13.7(H) 2.5 - 5.0 mg/dL [facility] 11/21/2024 3:00 AM EDT 11/22/2024 1:16 PM EDT us Raoul Dooley MD LAB BLOOD ORDERABLES Final Re sult Performing Organization Address [facility] de Phone Number [facility] [address] [place] [address] * (ABNORMAL) Hemoglobin (11/09/2024 3:00 AM EDT) Only the most recent of4 resultswithin the time period is included. Hgb 9.4(L) 11.2 - 15.7 g/dL [facility] Hemoglobin x 3 28.2(L) 33.6 - 47.1 g/dL [facility] 11/09/2024 3:00 AM EDT 11/10/2024 1:01 PM EDT Raoul Dooley MD LAB BLOOD ORDERABLES Final Re sult Performing Organization Address [facility] Co de Phone Number [facility] [address] [place] [address] * Collection Date (10/31/2024 3:00 AM EDT) Collection Date See Comment [facility] Comment: Patient sample received may exceed specimen stability, based on the collection date electronically provided. ??When reviewing patient results, verify collection information and consider specimen stability before acting on any critical or panic results. 10/31/2024 3:00 AM EDT Raoul Dooley MD LAB [id number] SOLICITED RESULTS Final Result Performing Organization Address [facility] de Phone Number [facility] [address] [place] [address] * (ABNORMAL) Kt/V Natural Log, URR (10/31/2024 [...] 12:38 PM EDT Raoul Dooley MD LAB [id number] SOLICITED RESULTS Final Result Performing Organization Address [facility]/ZIP Co de Phone Number [facility] [address] [place] [address] * (ABNORMAL) Calcium Phosphorus Product, Adjusted (10/31/2024 [...] 1:46 PM EDT Raoul Dooley MD LAB [id number] SOLICITED RESULTS Final Result Performing Organization Address [facility] de Phone Number [facility] [address] [place] [address] * Hepatitis B Surface Ag w/Reflex Confirmation (10/31/2024 3:00 AM EDT) Only the most recent of3 resultswithin the time period is included. Hep B Surface Antigen Negative Negative [facility] 10/31/2024 3:00 AM EDT 11/03/2024 1:46 PM EDT us Raoul Dooley MD LAB BLOOD ORDERABLES Final Re sult Performing Organization Address [facility] de Phone Number [facility] [address] [place] [address] * (ABNORMAL) TSAT (10/31/2024 3:00 AM EDT) [...] Final Re sult [facility] [address] [place] [address] * (ABNORMAL) CBC and Differential (10/31/2024 3:00 AM EDT) Only the most recent of3 resultswithin the time period is included. Pathologist [facility] DIFFERENTIAL MANUAL, 2 Not Indicated [facility] White [...] ORDERABLES Final Re sult Performing Organization Address [facility] Co de Phone Number [facility] [address] [place] [address] * ALT (10/31/2024 3:00 AM EDT) Only the most recent of3 resultswithin the time period is included. ALT (SGPT) 47 10 - 49 U/L [facility] 10/31/2024 3:00 AM EDT 11/03/2024 1:46 PM EDT aRoul Dooley MD LAB BLOOD ORDERABLES Final Re sult Performing Organization Address [facility] de Phone Number [facility] [address] [place] [address] * AST (10/31/2024 3:00 AM EDT) Only the most recent of3 resultswithin the time period is included. AST (SGOT) 16 <34 U/L [facility] 10/31/2024 3:00 AM EDT 11/03/2024 1:46 PM EDT Raoul Dooley MD LAB BLOOD ORDERABLES Final Re sult Performing Organization Address [facility] de Phone Number [facility] [address] [place] [address] * Protein, total (10/31/2024 3:00 AM EDT) Only the most recent of3 resultswithin the time period is included. Total Protein 6.6 6.4 - 8.9 g/dL [facility] 10/31/2024 3:00 AM EDT 11/03/2024 1:46 PM EDT us Raoul Dooley MD LAB BLOOD ORDERABLES Final Re sult Performing Organization Address [facility] Co de Phone Number [facility] [address] [place] [address] * (ABNORMAL) Alkaline phosphatase (10/31/2024 3:00 AM EDT) Only the most recent of3 resultswithin the time period is included. Alkaline Phosphatase 166(H) 46 - 116 U/L [facility] 10/31/2024 3:00 AM EDT 11/03/2024 1:46 PM EDT Raoul Dooley MD LAB BLOOD ORDERABLES Final Re sult Performing Organization Address [facility] de Phone Number [facility] [address] [place] [address] * PTH, Intact (10/31/2024 3:00 AM EDT) PTH, Intact 220 160 - 721 pg/mL [facility] Comment: Suggested (KDIGO) ESRD maintenance range is two to nine times the upper normal limit (80.1 pg/mL) for the laboratory. 10/31/2024 3:00 AM EDT 11/03/2024 1:46 PM EDT us Raoul Dooley MD LAB BLOOD ORDERABLES Final Re sult Performing Organization Address [facility] Co de Phone Number [facility] [address] [place] [address] * Magnesium (10/31/2024 3:00 AM EDT) Only the most recent of3 resultswithin the time period is included. Magnesium 1.9 1.9 - 2.7 mg/dL [facility] 10/31/2024 3:00 AM EDT 11/03/2024 1:46 PM EDT us Raoul Dooley MD LAB BLOOD ORDERABLES Final Re sult Performing Organization Address [facility] Co de Phone Number [facility] [address] [place] [address] * (ABNORMAL) Lactate dehydrogenase (10/31/2024 3:00 AM EDT) Only the most recent of3 resultswithin the time period is included. LDH 378(H) 120 - 246 U/L [facility] 10/31/2024 3:00 AM EDT 11/03/2024 1:46 PM EDT Raoul Dooley MD LAB BLOOD ORDERABLES Final Re sult Performing Organization Address [facility] de Phone Number [facility] [address] [place] [address] * Glucose, random (10/31/2024 3:00 AM EDT) Only the most recent of3 resultswithin the time period is included. Glucose 95 74 - 109 mg/dL [facility] 10/31/2024 3:00 AM EDT 11/03/2024 1:46 PM EDT Raoul Dooley MD LAB BLOOD ORDERABLES Final Re sult Performing Organization Address [facility] de Phone Number [facility] [address] [place] [address] * (ABNORMAL) Ferritin (10/31/2024 3:00 AM EDT) Only the most recent of3 resultswithin the time period is included. Ferritin 1,226(H) 10 - 291 ng/mL [facility] 10/31/2024 3:00 AM EDT 11/03/2024 1:46 PM EDT Raoul Dooley MD LAB BLOOD ORDERABLES Final Re sult Performing Organization Address [facility] Co de Phone Number [facility] [address] [place] [address] * (ABNORMAL) Creatinine, serum (10/31/2024 3:00 AM EDT) Only the most recent of3 resultswithin the time period is included. Creatinine 8.13(H) 0.55 - 1.02 mg/dL [facility] 10/31/2024 3:00 AM EDT 11/03/2024 1:46 PM EDT Raoul Dooley MD LAB BLOOD ORDERABLES Final Re sult Performing Organization Address [facility] de Phone Number [facility] [address] [place] [address] * (ABNORMAL) Bilirubin, total (10/31/2024 3:00 AM EDT) Only the most recent of3 resultswithin the time period is included. Total Bilirubin <0.2(L) 0.3 - 1.2 mg/dL [facility] 10/31/2024 3:00 AM EDT 11/03/2024 1:46 PM EDT Raoul Dooley MD LAB BLOOD ORDERABLES Final Re sult Performing Organization Address [facility] de Phone Number [facility] [address] [place] [address] * (ABNORMAL) Lipid panel (10/31/2024 3:00 AM [...] ORDERABLES Final Re sult Performing Organization Address [facility] de Phone Number [facility] [address] [place] [address] * (ABNORMAL) Electrolyte panel (10/31/2024 3:00 AM [...] ORDERABLES Final Re sult Performing Organization Address [facility] de Phone Number [facility] [address] [place] [address] from Last 3 Months Insurance [place]
--- OUTSIDE RECORDS SUMMARY | 2024-11-25 11:18 | XMS_ITS | Encounter Summary ---
Author Organization [facility] Address [address] [place] [phone] Phone Care Team Providers Care Margin Analyst Name Role Phone Unavailable Primary Care Provider Unavailabl e Encounter Details Date Type Department Care Team ([facility] st Contact Info) Description 11/23/2024 Treatment [facility] [address] [phone] Carrillo Valerio MD [address] [phone] End stage renal disease; Dependence [...] Dialysis Note - Carrillo Valerio MD - 11/23/2024 12:00 AM EDT Patient: Simran Bolanos : 1975 Note Type: Dialysis Rounds-Comp Service Date: 11/23/2024 This patient was personally seen for a complete visit as part of routine monthly dialysis care for end stage renal disease. 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, unspecified Attending Energy Consultant: MARIA T FRAGOSO MD Dialysis Location: 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 ADEQUACY ASSESSMENT Kt/V, Natural Log 1.54 (10/31/24) 0.88 (10/21/24) 1.01 (10/12/24) UREA REDUCTION RATIO (%) 75 (10/31/24) 55 (10/21/24) 58 (10/12/24) BUN 84 (10/31/24) 84 (10/21/24) 84 (10/12/24) BUN Post Dialysis 21 (10/31/24) 38 (10/21/24) 35 (10/12/24) Creatinine 8.13 (10/31/24) 10.58 (10/05/24) 10.55 (09/02/24) Bicarbonate (CO2) 19 (10/31/24) 24 (10/26/24) 17 (10/05/24) Sodium 130 (10/31/24) 135 (10/26/24) 129 (10/05/24) ANEMIA ASSESSMENT Hgb 9.4 (11/09/24) 8.5 (10/31/24) 7.3 (10/21/24) Iron Saturation (TSat) 18 (10/31/24) 12 (10/05/24) 31 (09/02/24) Ferritin 1,226 (10/31/24) 1,329 (10/05/24) 1,071 (09/02/24) Iron 34 (10/31/24) 13 (10/05/24) 36 (09/02/24) TIBC 190 (10/31/24) 108 (10/05/24) 118 (09/02/24) MCV 96.3 (10/31/24) 94.5 (10/05/24) 91.8 (09/02/24) Platelets 355 (10/31/24) 238 (10/05/24) 343 (09/02/24) BMM ASSESSMENT Calcium, Adjusted Total 8.8 10/31/24 9.0 10/05/24 9.8 09/02/24 Calcium 8.8 10/31/24 8.7 10/05/24 9.3 09/02/24 Phosphorus, Serum 13.7 11/21/24 11.0 10/31/24 5.8 10/05/24 Ca*PO4 96.8 10/31/24 50.5 10/05/24 81.8 09/02/24 PTH, Intact 220 10/31/24 182 08/05/24 Magnesium 1.9 10/31/24 1.9 10/05/24 2.3 09/02/24 Alkaline Phosphatase 166 10/31/24 133 10/05/24 65 09/02/24 Aluminum 7 08/05/24 7 07/11/24 NUTRITION ASSESSMENT Albumin 4.0 10/31/24 3.6 10/05/24 3.4 09/02/24 Potassium 8.1 11/21/24 6.2 10/31/24 6.5 10/26/24 ADDITIONAL LABS White Blood Cells 6.5 (10/31/24) 13.8 (10/05/24) 6.6 (09/02/24) Cholesterol 193 (10/31/24) 140 (08/05/24) HDL 68 (10/31/24) 46 (08/05/24) LDL-Calc 104 (10/31/24) 73 (08/05/24) Triglycerides 103 (10/31/24) 104 (08/05/24) Hep B Surface Antibody <4 (08/05/24) Uric Acid 6.6 (08/05/24) ADDITIONAL COMMENT COMMENTS: 10/12/24 recent [facility] notes reviewed, cont to tx, c/o nausea today 11/23/24 hyperk is major concern, cuttingvtx short and not tsking lokelma cont to be very problematic 09/05/24 same issues 09/14/24 stable 05/02/24 adjusting to HD 05/18/24 stable 05/30/24 doing ok 06/13/24 stable 06/21/24 doing ok 07/04/24 stable 08/26/24 same issues Signed by: CARRILLO VALERIO MD on 11/24/2024 at 01:12:49 AM Transcribed by: CARRILLO VALERIO MD on 11/24/2024 at 01:12:49 AM documented in this encounter Plan of Treatment Not on file documented as of this encounter Visit Diagnoses Diagnosis End stage renal disease Dependence on renal dialysis Amyloidosis documented in this encounter
--- OUTSIDE RECORDS SUMMARY | 2024-11-25 11:18 | XMS_ITS | Clinical Summary ---
Author Organization modu [facility] Address [address] 7[address] [place] [address] Care Team Providers Care Atmospheric Chemist Name Role Phone ThaliaDevi oconnorshena OLIVEROS Primary Care Provider [phone] Allergies No known active allergies Medications amphetamine-dextro [...] Encounters Date Type Department Care Team Description 11/14/2024 Orders Only [facility] [address] [place] [address] Edilberto Montemayor MD 10/07/2024 Population Health Risk Score [facility] (C3) Department [address] [facility] [address] [place] [phone] Provider, Population Health Generic 09/24/2024 Orders Only [...] EST Narrative 09/24/2024 4:24 PM EST ? [facility] ?[address] ?[place] [address] ? CT Scan Report ? Signed ? Patient: [place] Park,Simran ?MR#: [id number] ? : 1975 ?Acct:[id number] ? Age/Sex: 49 / F ?ADM Date: 03/01/25 ? Loc: HO.ICU ?255-1 ? Attending Dr: Carlton Vasquez MD ? Ordering Physician: Elena Raymond DO ?? Date of Service: 09/24/24 ?? Procedure(s): CT head/brain wo IV con ?? Accession Number(s): [id number] ? cc: Elena Raymond DO; [facility] ? Report Number: ?? [id number]: Total DLP = ??599.00 mGy-cm ? CLINICAL [...] ?09/24/24 1624 ? DD/ 1623 ? TD/TT: 09/24/24 1623 ? Orthopedic Nurse: ? Procedure Note Roxanne, Image - 09/26/[address] [place] [address] [address] Scan Report Signed Patient: gAata Bolanos#: [id number] : 1975Acct:[id number] Age/Sex: 49 / FADM Date: 09/24/24 Loc: HO.ICU 255-[address]: Carlton Vasquez MD Ordering Physician: Elena Raymond DO Date of Service: 09/24/24 Procedure(s): CT head/brain wo IV con Accession Number(s): [id number] cc: Elena Raymond DO; [facility] Report Number: [id number]: Total DLP = 599.00 mGy-cm CLINICAL HISTORY: [...] 09/24/24 1624 DD/ 1623 TD/TT: 09/24/24 1623 Orthopedic Nurse: [facility] External Provider IMG CT PROCEDURES Final Result * XR Chest 1 View (09/24/2024 3:41 PM EST) Only the most recent of2 resultswithin the time period is included. Anatomical Region Laterality Modality Chest Radiographic Davina ging 09/24/2024 3:41 PM EST Narrative 09/24/2024 3:42 PM EST ? [facility] ?[address] ?[place] [address] ?XRay Report ? Signed ? Patient: [place] Park,Simran ?MR#: [id number] ? : 1975 ?Acct:[id number] ? Age/Sex: 49 / F ?ADM Date: 09/24/24 ? Loc: HO.ICU ?255-1 ? Attending Dr: Carlton Vasquez MD ? Ordering Physician: Elena Raymond DO ?? Date of Service: 09/24/24 ?? Procedure(s): XR chest 1V ?? Accession Number(s): [id number] ? cc: Elena Raymond DO; [facility] ? CLINICAL HISTORY: intubated ETT [...] DD/ 1541 ? TD/TT: 09/24/24 1541 ? Orthopedic Nurse: ? Procedure Note Donregineter, Image - 09/26/2024 [place] [address] XRay Report Signed Patient: Agata Bolanos#: [id number] : 1975Acct:[id number] Age/Sex: 49 / FADM Date: 09/24/24 Loc: .ICU 255-[address]: Carlton Vasquez MD Ordering Physician: Elena Raymond DO Date of Service: 09/24/24 Procedure(s): XR chest 1V Accession Number(s): [id number] cc: Elena Raymond DO; [facility] CLINICAL HISTORY: intubated ETT placement [...] 09/24/24 1542 DD/ 1541 TD/TT: 09/24/24 1541 Orthopedic Nurse: us [facility] External Provider IMG XR PROCEDURES Final Result * CT Abdomen Pelvis w/o Contrast (09/24/2024 12:00 PM EST) Anatomical Region Laterality Modality Body, Pelvis, Abdomen Computed T omography 09/24/2024 12:0 0 PM EST Narrative 09/24/2024 12:02 PM EST ? [facility] ?[address] ?[place], [place] [address] ? CT Scan Report ? Signed ? Patient: [place] Park,Simran ?MR#: [id number] ? : 1975 ?Acct:[id number] ? Age/Sex: 49 / F ?ADM Date: 09/24/24 ? Loc: [facility] ?ICU-1 ? Attending Dr: Carlton Vasquez MD ? Ordering Physician: Elena Raymond DO ?? Date of Service: 09/24/24 ?? Procedure(s): CT abdomen pelvis wo IV con ?? Accession Number(s): [id number] ? cc: Elena Raymond DO; [facility] ? Report Number: ?? [id number]: Total DLP = ??734.51 mGy-cm ? CLINICAL [...] DD/ 1200 ? TD/TT: 09/24/24 1200 ? Orthopedic Nurse: ? Procedure Note Donotuseinterpreter, Image - 09/26/[address] [address] [address] Scan Report Signed Patient: Suri BolanosR#: [id number] : 1975Acct:[id number] Age/Sex: 49 / FADM Date: 09/24/24 Loc: [facility] ICU-[address]: Carlton Vasquez MD Ordering Physician: Elena Raymond DO Date of Service: 09/24/24 Procedure(s): CT abdomen pelvis wo IV con Accession Number(s): [id number] cc: Elena Raymond DO; [facility] Report Number: [id number]: Total DLP = 734.51 mGy-cm CLINICAL HISTORY: [...] 09/24/24 1201 DD/ 1200 TD/TT: 09/24/24 1200 Orthopedic Nurse: [facility] External Provider IMG CT PROCEDURES Edited Result - Final * CT Cervical Spine w/o Contrast (09/24/2024 11:53 AM EST) Anatomical Region Laterality Modality Spine, C-spine Computed Tomogra phy 09/24/2024 11:5 3 AM EST Narrative 09/24/2024 11:55 AM EST ? [facility] ?[address] ?[place] [address] ? CT Scan Report ? Signed ? Patient: [place] Park,Simran ?MR#: [id number] ? : 1975 ?Acct:[id number] ? Age/Sex: 49 / F ?ADM Date: 09/24/24 ? Loc: HO.ED ? Attending Dr: ? Ordering Physician: Elena Raymond DO ?? Date of Service: 09/24/24 ?? Procedure(s): CT cervical spine wo IV con ?? Accession Number(s): [id number] ? cc: Elena Raymond DO; [facility] ? Report Number: ?? [id number]: Total DLP = ??485.62 mGy-cm ? CLINICAL [...] DD/ 1153 ? TD/TT: 09/24/24 1153 ? Orthopedic Nurse: ? Procedure Note Toño Oliveira - 09/26/[address] [address] [address] Scan Report Signed Patient: Agata Bolanos#: [id number] : 1975Acct:[id number] Age/Sex: 49 / FADM Date: 09/24/24 Loc: HO.ED Attending Dr: Ordering Physician: Elena Raymond DO Date of Service: 03/01/25 Procedure(s): CT cervical spine wo IV con Accession Number(s): [id number] cc: Elena Raymond DO; [facility] Report Number: [id number]: Total DLP = 485.62 mGy-cm CLINICAL HISTORY: [...] 09/24/24 1155 DD/ 1153 TD/TT: 09/24/24 1153 Orthopedic Nurse: [facility] External Provider IMG CT PROCEDURES Edited Result - Final * CT Chest w/o Contrast (09/24/2024 11:52 AM EST) Anatomical Region Laterality Modality Body, Chest Computed Tomogra phy 09/24/2024 11:5 2 AM EST Narrative 09/24/2024 11:53 AM EST ? [facility] ?[address] ?[place] [address] ? CT Scan Report ? Signed ? Patient: [place] Park,Simran ?MR#: [id number] ? : 1975 ?Acct:[id number] ? Age/Sex: 49 / F ?ADM Date: 09/24/24 ? Loc: HO.ED ? Attending Dr: ? Ordering Physician: Elena Raymond DO ?? Date of Service: 09/24/24 ?? Procedure(s): CT chest wo IV con ?? Accession Number(s): [id number] ? cc: MandiElena DO; [facility] ? Report Number: ?? [id number]: Total DLP = ??308.02 mGy-cm ? CLINICAL [...] Kenton Naqvi MD in OV> ? 09/24/24 1153 ? DD/ 1152 ? TD/TT: 09/24/24 1152 ? Orthopedic Nurse: ? Procedure Note Donalbin, Image - 09/26/[address] [place] [address] [address] Scan Report Signed Patient: Agata Bolanos#: [id number] : 1975Acct:[id number] Age/Sex: 49 / FADM Date: 09/24/24 Loc: HO.ED Attending Dr: Ordering Physician: Elena Raymodn DO Date of Service: 09/24/24 Procedure(s): CT chest wo IV con Accession Number(s): [id number] cc: Elena Raymnod DO; [facility] Report Number: [id number]: Total DLP = 308.02 mGy-cm CLINICAL HISTORY: [...] 09/24/24 1153 DD/ 1152 TD/TT: 09/24/24 1152 Orthopedic Nurse: us [facility] External Provider IMG CT PROCEDURES Edited Result - Final * (ABNORMAL) Glucose, Whole Blood (09/24/2024 10:59 AM EST) Glucose, Whole Blood 54(LL) 60 - 115 mg/dL [facility] Comment:METER #: [id number] 09/24/2024 10:5 9 AM EST 09/24/2024 11:03 AM EST Generic External Data Provider LAB BLOOD ORDERAB LES Final Result Performing Organization Address City/[facility]/ZIP Co de Phone Number [facility] [address] [place] [phone] * Hold Green Gel (09/24/2024 10:10 AM EST) Only the most recent of3 resultswithin the time period is included. Hold Green Gel See Note [facility] Comment:Specimen held untest ed for 24 hours; Call to requestChemistry testing. 09/24/2024 10:1 0 AM EST 09/24/2024 10:31 AM EST us Generic External Data Provider HISTORICAL/NON OR DERABLE LABS Final Result Performing Organization Address City/[facility]/ZIP Co de Phone Number [facility] [address] [place] [address] [phone] * Hold Lavender - Possible Hematology (09/24/2024 10:10 AM EST) Hold Lavender - Possible Hematololgy SEE NOTE [facility] Comment:Specimen will be hel d untested for 8 hours. Call Hematologyif testing is desired. 09/24/2024 10:1 0 AM EST 09/24/2024 10:30 AM EST us Generic External Data Provider HISTORICAL/NON OR DERABLE LABS Final Result Performing Organization Address [facility] Co de Phone Number [facility] [address] [place] [phone] * Acetaminophen level (09/24/2024 10:10 AM EST) Acetaminophen LAB <3 <30 mcg/mL [facility] 09/24/2024 10:1 0 AM EST 09/24/2024 10:20 AM EST us Generic External Data Provider LAB BLOOD ORDERAB LES Final Result Performing Organization Address [facility] de Phone Number [facility] [address] [place] [phone] * (ABNORMAL) Salicylate (09/24/2024 10:10 AM EST) Salicylate <5.0(L) 15 - 30 mg/dL [facility] 09/24/2024 10:1 0 AM EST 09/24/2024 10:20 AM EST Generic External Data Provider LAB BLOOD ORDERAB LES Final Result Performing Organization Address City/[facility] Co de Phone Number [facility] [address] [place] [phone] * Slide Review (09/24/2024 9:44 AM EST) Slide Review VERIFIED [facility] 09/24/2024 9:44 AM EST 09/24/2024 9:51 AM EST us Generic External Data Provider LAB BLOOD ORDERAB LES Final Result Performing Organization Address City/[facility]/ZIP Co de Phone Number [facility] [address] [place] [address] [phone] * (ABNORMAL) High Sensitivity Troponin I (09/24/2024 9:44 AM EST) [facility] TROPONIN I HIGH SENSITIVITY 195.9(HH) <3.5 - 17.0 ng/L [facility] Comment:Critical value for t est(s): TROPONIN Results called to ingrid back by: PERLA Person calling:MARIAM Date: 09/24/24Time:1055[facility] [place] high sensitivity Troponin-I results should beused in conjunction with other diagnostic information suchas ECG, clinical observations and information, and patientsymptoms to aid in the diagnosis of MT. 09/24/2024 9:44 AM EST 09/24/2024 9:51 AM EST us Generic External Data Provider LAB BLOOD ORDERAB LES Final Result Performing Organization Address [facility] Co de Phone Number [facility] [address] [place] [phone] * Ethanol (09/24/2024 9:44 AM EST) [facility] ETHANOL (MG/DL) IN SER/PLAS <10 mg/dL [facility] Comment:Serum/plasma ethanol results are to be used formedical/treatment purposes only. 09/24/2024 9:44 AM EST 09/24/2024 9:51 AM EST us Generic External Data Provider LAB BLOOD ORDERAB LES Final Result Performing Organization Address [facility] Co de Phone Number [facility] [address] [place] [phone] * (ABNORMAL) TSH with Reflex to Free T4 (09/24/2024 9:44 AM EST) [facility] TSH reflex Free T4 61.26(H) 0.32 - 4.0 uIU/mL [facility] 09/24/2024 9:44 AM EST 09/24/2024 9:51 AM EST us Generic External Data Provider LAB BLOOD ORDERAB LES Final Result [facility] [address] [place] [address] [phone] * Procalcitonin (09/24/2024 9:44 AM EST) Procalcitonin 0.99 ng/mL [facility] Comment: Procalcitonin (PCT) Reference Range:PCT [...] in interpreting PCT results fromdifferent laboratories and methodologies.References:[place] [employer]/Society of CriticalCare Medicine Consensus Conference Committee. ??Definitionsfor sepsis and organ failure and guidelines for the use ofinnovative therapies in sepsis. ??Crit Care Ere3571;20(6):864-874.Fran B, Kyleigh KL, Toyin H, et al. ??Calcitoninprecursors are reliable markers of sepsis in a medicalintensive care unit. ??Crit Care Med 2000;363:600-607.Nestor S, Mahesh K, Lucina C, et al. ??Diagnosticvalue of procalcitonin, interleukin-6 and interleukin-8 incritically ill patients admitted with suspected sepsis. ??AMJ Respir Crit Care Med 2001;164:396-402.US Food and Drug Administration. ??510(k) substantialequivalence determination decision summary for [facility] PCTLIA.http://www.accessdata.fda.fov/cdr_docs/reviews/[email or web address].pdf.Published July 2004. ??Accessed December 2016. 09/24/2024 9:44 AM EST 09/24/2024 9:51 AM EST us Generic External Data Provider LAB BLOOD ORDERAB LES Final Result [facility] [address] [place] [address] [phone] * (ABNORMAL) CBC auto differential (09/24/2024 9:44 AM EST) White Blood Count 18.7(H) 4.8 - 10.8 X10*3/uL [facility] Red Blood Count 2.39(L) 4.20 - 5.50 X10*6/uL [facility] Hemoglobin 6.8(LL) 12.0 - 16.0 g/dl [facility] Comment:Test was verified by repeat analysis.Critical HGB called to and read back by Jack 09/24/24 at 1003 by FINN. Hematocrit 20.9(LL) 37.0 - 47.0 % [facility] Comment:Test was verified by repeat analysis.Critical HCT called to and read back by Jack 09/24/24 at 1003 by FINN. Mean Corpuscular Volume 87.4 80.0 - 98.0 fL [facility] Mean Corpuscular Hemoglobin 28.5 27.0 - 33.0 pg [facility] Mean Corpuscular HGB Conc 32.5 31.0 - 35.0 g/dl [facility] Red Cell Distribution Width 15.7 11.0 - 16.0 % [facility] Platelet Count 356 160 - 400 X10*3/uL [facility] Mean Platelet Volume 10.0 9.4 - 12.3 fL [facility] Neutrophils Percent Auto 93.6(H) 45 - 73 % [facility] Imm Gran Pct Auto 0.8(H) 0.0 - 0.4 % [facility] Lymphocytes Percent Auto 3.0(L) 20 - 40 % [facility] Monocytes Percent Auto 2.4 2 - 11 % [facility] Eosinophils Percent Auto 0.0 0 - 4 % [facility] Basophils Percent Auto 0.2 0 - 2 % [facility] NRBC Pct Auto 0.0 0.0 - 0.2 /100WBC [facility] Neutrophils Absolute Auto 17.5(H) 2.0 - 8.3 x10*3/uL [facility] Imm Gran Abs Auto 0.14(H) 0.00 - 0.03 X10*3/uL [facility] Lymphocytes Absolute Auto 0.6(L) 1.2 - 4.9 X10*3/uL [facility] Monocytes Absolute Auto 0.4 0.1 - 1.2 X10*3/uL [facility] Eosinophils Absolute Auto 0.0 0.0 - 0.4 X10*3/uL [facility] Basophils Absolute Auto 0.0 0.0 - 0.2 X10*3/uL [facility] NRBC Abs Auto 0.000 0.0 - 0.012 X10*3/uL [facility] 09/24/2024 9:44 AM EST 09/24/2024 9:51 AM EST us Generic External Data Provider LAB BLOOD ORDERAB LES Edited Result - Final Performing Organization Address [facility] Co de Phone Number [facility] [address] [place] [phone] * (ABNORMAL) C-reactive Protein (09/24/2024 9:44 AM EST) C Reactive Protein 3.89(H) < or = 0.50 mg/dL [facility] 09/24/2024 9:44 AM EST 09/24/2024 9:51 AM EST us Generic External Data Provider LAB BLOOD ORDERAB LES Final Result Performing Organization Address [facility] Co de Phone Number [facility] [address] [place] [phone] * hCG, Total, Quantitative (09/24/2024 9:44 AM EST) Pathologist [facility] HCG Quantitative <2 mIU/mL [facility] Comment:Weeks post LMP Appro ximate hCG(Last Menstrual Period) Range (mIU/ml)3 - 4 weeks 9 - 1304 - 5 weeks 75 - 2,6005 - 6 weeks 850 - 20,8006 - 7 weeks 4000 - 100,2007 - 12 weeks 11,500 - 289,88094 - 16 weeks 18,300 - 137,50721 - 29 weeks (2nd trimester) 1,400 - 53,80001 - 41 weeks (3rd trimester) 940 - [...] ORDERAB LES Final Result Performing Organization Address [facility]/ZIP Co de Phone Number [facility] [address] [place] [address] [phone] * (ABNORMAL) B Type Natriuretic Peptide (BNP) (09/24/2024 9:44 AM EST) Pathologist [facility] B Type Natriuretic Peptide 2,222(H) <100 pg/mL [facility] Comment:For those patients w ho are being treated with Natrecor(nesiritide, recombinant BNP), BNP testing should beperformed at least two hours post treatment in order toensure that only endogenous levels of BNP are detected. 09/24/2024 9:44 AM EST 09/24/2024 9:51 AM EST us Generic External Data Provider LAB BLOOD ORDERAB LES Final Result Performing Organization Address [facility]/ZIP Co de Phone Number [facility] [address] [place] [phone] * Magnesium (09/24/2024 9:44 AM EST) Magnesium 2.3 1.6 - 2.6 mg/dL [facility] 09/24/2024 9:44 AM EST 09/24/2024 9:51 AM EST us Generic External Data Provider LAB BLOOD ORDERAB LES Final Result Performing Organization Address [facility] Co md Phone Number [facility] [address] [place] [phone] * Lipase (09/24/2024 9:44 AM EST) Lipase 18 8 - 78 U/L [facility] 09/24/2024 9:44 AM EST 09/24/2024 9:51 AM EST Generic External Data Provider LAB BLOOD ORDERAB LES Final Result Performing Organization Address [facility] Phone Number [facility] [address] [place] [phone] * (ABNORMAL) Lactic Acid (09/24/2024 9:44 AM EST) Lactic Acid 2.4(HH) 0.5 - 2.0 mmol/L [facility] Comment:Critical value for t est(s): LACTA Results called to ingrid back by: PERLA Person calling:MARIAM Date: 09/24/24Time:1055 09/24/2024 9:44 AM EST 09/24/2024 9:51 AM EST Generic External Data Provider LAB BLOOD ORDERAB LES Final Result Performing Organization Address [facility] Co de Phone Number [facility] [address] [place] [address] [phone] * (ABNORMAL) Creatine Kinase, Total (09/24/2024 9:44 AM EST) Pathologist [facility] Creatine Kinase Total 360(H) 26 - 140 U/L [facility] 09/24/2024 9:44 AM EST 09/24/2024 9:51 AM EST Generic External Data Provider LAB BLOOD ORDERAB LES Final Result Performing Organization Address [facility] de Phone Number [facility] [address] [place] [phone] * Ammonia, Plasma (09/24/2024 9:44 AM EST) Pathologist [facility] Ammonia (P) 23 13 - 55 umol/L [facility] 09/24/2024 9:44 AM EST 09/24/2024 10:20 AM EST Generic External Data Provider LAB BLOOD ORDERAB LES Final Result Performing Organization Address [facility] Phone Number [facility] [address] [place] [phone] * (ABNORMAL) Hepatic Function Panel (09/24/2024 9:44 AM EST) Pathologist [facility] Bilirubin, Total 0.5 0.0 - 1.0 mg/dL [facility] Bilirubin, Direct 0.2 0.0 - 0.5 mg/dL [facility] Aspartate Amino Transferase 18 5 - 31 U/L [facility] Alanine Aminotransferase <6 0 - 31 U/L [facility] Total Protein 6.3(L) 6.5 - 8.0 g/dL [facility] Albumin Level 3.2(L) 3.5 - 5.0 g/dL [facility] Alkaline Phosphatase 83 39 - 117 U/L [facility] 09/24/2024 9:44 AM EST 09/24/2024 9:51 AM EST us Generic External Data Provider LAB BLOOD ORDERAB LES Final Result [facility] [address] [place] [phone] [phone] * (ABNORMAL) Basic Metabolic Panel (09/24/2024 9:44 AM EST) Sodium 140 135 - 145 mmol/L [facility] Potassium 7.3(HH) 3.3 - 5.1 mmol/L [facility] Comment:Critical value for t est(s): POTS Results called to andrerosalie back by: PERLA Person calling:[employer] Wind EnergyNstiQRd Date: 09/24/24Time:1055Test was verified by repeat analysis. Chloride 93(L) 96 - 108 mmol/L [facility] Carbon Dioxide 16(L) 22 - 29 mmol/L [facility] Anion Gap 38(H) 12 - 20 [facility] Urea Nitrogen (BUN) 103(H) 9 - 16 mg/dL [facility] Creatinine, Serum 13.63(HH) 0.5 - 1.4 mg/dL [facility] Comment:Critical value for t est(s): CREAT Results called to andread back by: CURRIM Person calling:[employer] Date: 09/24/24Time:1055 Creatinine Clr Calc Pharmacy 3.6 [facility] Comment:Provided height and weight: 152.4 cm,48.9 kg.eGFR (calculated from the MDRD study equation) and eCrCl(calculated from the Cockcroft-Gault equation) are based ondifferent parameters and may not yield comparable results.If eCrCl result is absurd, please check patient'sheight/weight. Estimated Glomerular Filt Rate 3 [facility] Comment:Chronic Kidney Disea se: Estimated GFR < 60 mL/min/1.20f1Tmftno Kidney Disease: Estimated GFR < 15 mL/min/1.73m2 Glucose 70 60 - 115 mg/dL [facility] Calcium 8.8 8.4 - 10.2 mg/dL [facility] 09/24/2024 9:44 AM EST 09/24/2024 9:51 AM EST us Generic External Data Provider LAB BLOOD ORDERAB LES Final Result [facility] [address] [place] [address] [phone] from Last 3 Months Care Teams Atmospheric Chemist Relationship Specialty Start Date End Date Simone Sloan PA-C [address] [place] [phone] PCP - General Family Medicine 11/16/23
--- OUTSIDE RECORDS SUMMARY | 2024-11-25 11:18 | XMS_ITS | Encounter Summary ---
Author Organization [facility] Address [address] [place] [phone] Phone Care Team Providers Care Booking Agent Name Role Phone Unavailable Primary Care Provider Unavailabl e Encounter Details Date Type Department Care Team ([facility] st Contact Info) Description 11/21/2024 Treatment [facility] [address] [phone] Carrillo Valerio MD [address] [phone] End stage renal disease; Dependence [...] Dialysis Note - Carrillo Valerio MD - 11/21/2024 12:00 AM EDT Patient: Simran Bolanos : 1975 Note Type: Dialysis Rounds-Comp Service Date: 11/21/2024 This patient was personally seen for a complete visit as part of routine monthly dialysis care for end stage renal disease. 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, unspecified Attending Sales Exec: MARIA T FRAGOSO MD Dialysis Location: [facility] Schedule: Shift: 2 OVERVIEW COMMENTS: Note in dialysis manager contract ADEQUACY ASSESSMENT Kt/V, Natural Log 1.54 (10/31/24) [...] 6.6 (08/05/24) ADDITIONAL COMMENT COMMENTS: 10/12/24 [facility] reviewed, cont to miss tx, c/o nausea today 11/21/24 cont non compliance w missing tx and cutting tx time s 11/23/24 hyperk is major concern, cuttingvtx short and not tsking lokelma cont to be very problematic 09/05/24 same issues 09/14/24 stable 05/02/24 adjusting to HD 05/18/24 stable 05/30/24 doing ok 06/13/24 stable 06/21/24 doing ok 07/04/24 stable 08/26/24 same issues Signed by: CARRILLO VALERIO MD on 11/24/2024 at 01:14:13 AM Transcribed by: CARRILLO VALERIO MD on 11/24/2024 at 01:14:13 AM documented in this encounter Plan of Treatment Not on file documented as of this encounter Visit Diagnoses Diagnosis End stage renal disease Dependence on renal dialysis Amyloidosis documented in this encounter
--- OUTSIDE RECORDS SUMMARY | 2024-11-25 11:18 | XMS_ITS | Encounter Summary ---
Author Organization [facility] Address [address] [place] [id number] Phone Care Team Providers Care Warehouse Director Name Role Phone Unavailable Primary Care Provider Unavailabl e Encounter Details Date Type Department Care Team ([facility] st Contact Info) Description 11/04/2024 Treatment [facility] [address] [phone] Carrillo Valerio MD [address] [phone] End stage renal disease; Dependence [...] Dialysis Note - Carrillo Valerio MD - 11/04/2024 12:00 AM EDT BASIC NOTE Patient: Simran Bolanos : 1975 Note Author: CARRILLO VALERIO MD Service Date: 11/04/2024 Telehealth encounter using audiovisual technology, performed according to state requirements. Appropriate patient consent obtained. This patient was personally seen for a basic visit as part of routine monthly dialysis care for end stage renal disease. 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, unspecified Attending Administrative Fellow: MARIA T FRAGOSO MD Dialysis Location: [facility] Schedule: Shift: 2 OVERVIEW COMMENTS: Note in dialysis operations manager assistant ADEQUACY ASSESSMENT Kt/V, Natural Log 1.54 (10/31/24) [...] 6.6 (08/05/24) ADDITIONAL COMMENT COMMENTS: 10/12/24 recent [facility] notes reviewed, cont to miss tx, c/o nausea today 11/04/24 same problems 11/23/24 hyperk is major concern, cuttingvtx short and not tsking lokelma cont to be very problematic 09/05/24 same issues 09/14/24 stable 05/02/24 adjusting to HD 05/18/24 stable 05/30/24 doing ok 06/13/24 stable 06/21/24 doing ok 07/04/24 stable 08/26/24 same issues Signed by: CARRILLO VALERIO MD on 11/24/2024 at 01:15:04 AM Transcribed by: CARRILLO VALERIO MD on 11/24/2024 at 01:15:04 AM documented in this encounter Plan of Treatment Not on file documented as of this encounter Visit Diagnoses Diagnosis End stage renal disease Dependence on renal dialysis Amyloidosis documented in this encounter
--- NOTE | 2024-11-25 11:57 | PHA.MEDREC ---
Pharmacy Consult ? Medication Reconciliation Pharmacy has completed the medication reconciliation. Utilized discharge packet from 11/16/24 and spoke to patient to confirm medication list. Per patient, she takes Lokelma on [id number]. She said she is still taking doxycycline 100 mg bid and last dose was yesterday 11/24/24 (called [facility] who confirmed they delivered #20 for 10 day supply on 11/10/24). Last dose of medications was yesterday 11/24/24.
--- NOTE | 2024-11-25 12:52 | PC.NURSE ---
Pt taken to dialysis via transport
--- NOTE | 2024-11-25 14:14 | PC.NURSE ---
Brought up dylon for pt in dialysis as she was complaining of nausea.
[2024-11-25] MEDS: Heparin Sodium,Porcine 5,000 UNIT/ML VIAL 5000 UNIT SUBCUT ×2 (15:21→20:45)
[2024-11-25] MEDS: hydrALAZINE HCl 50 MG TABLET PO ×2 (15:21→20:45)
--- NOTE | 2024-11-25 15:30 | PC.NURSE ---
Pt back from dialysis. While in dialysis, pt told dialysis nurse she felt unwell and wanted to come off. Pt c/o of headache. Offered tylenol but pt stated it makes her feel sick. Will attempt again later
[2024-11-25] MEDS: 0.9 % Sodium Chloride Flush 3 ML SYRINGE IVFLUSH ×2 (18:07→23:34)
[2024-11-25] MEDS: levETIRAcetam 500 MG TABLET PO (20:45)
[2024-11-25] MEDS: Sevelamer Carbonate Tablet 800 MG TABLET PO (20:45)
[2024-11-25] MEDS: carvediloL 12.5 MG TABLET PO (20:45)
--- NOTE | 2024-11-25 22:18 | P.CONNP_ITS ---
History of Present Illness Reason for Consult Consult date: 11/25/24 Chief Complaint Chief complaint: hypertensive urgency, missed dialysis History of Present Illness Narrative: Seen and examined. Complicated non-compliant ESRD PT presents with mult sxms and severe HTN and HperK. Cont missed HD Tx and cuts HD Tx short routinely. Recurrent hyperK and not taking Lokelma as prescribed on non-HD days. In ER severe HTN and K 6.3 [facility] Review of Systems Review of Systems Negative except for that which is stated in the HPI. ON LICENSE OF [facility] Past Medical History Medical History Traumatic hematoma of left upper arm Seizure Opioid use disorder Hypertension, uncontrolled Anemia due to chronic kidney disease ESRD (end stage renal disease) on dialysis Medical non-compliance Norovirus Clostridioides difficile diarrhea Anemia HTN (hypertension) Drug abuse ESRD (end stage renal disease) Social History Social History Household Members: Other Household Members Other:: roommate Housing: Apartment Do you presently have visiting nurse or other home services: Yes Alcohol intake: unknown Comment: pt refusing bed alarm and yellow fall socks Patient Tobacco Use Status: Former Tobacco user Substance Use Type: Heroin Advance Directives Date on File: 09/25/24 service: No Meds Allergies Allergy/AdvReac Type Severity Reaction Status Date / Time No Known Allergies Allergy Verified 11/25/24 08:39 Active Medications: Current Medications Acetaminophen (Acetaminophen 325 Mg Tablet) 650 mg PO Q6H PRN PRN Reason: Pain, Mild 1-3,fever,headache Calcium Carbonate (Calcium Carbonate 750 Mg Tab.Chew) 750 mg PO Q4H PRN PRN Reason: Heartburn Carvedilol (Carvedilol 12.5 Mg Tablet) 12.5 mg PO BID [facility]; Protocol Last Admin: 11/25/24 20:45 Dose: 12.5 mg Heparin Sodium (Porcine) (Heparin Sodium,Porcine 5,000 Unit/Ml Vial) 5,000 unit SUBCUT Q8H ANNA MARIE Last Admin: 11/25/24 20:45 Dose: 5,000 unit Hydralazine HCl (Hydralazine Hcl 50 Mg Tablet) 50 mg PO TID ANNA MARIE; Protocol Last Admin: 11/25/24 20:45 Dose: 50 mg Levetiracetam (Levetiracetam 500 Mg Tablet) 500 mg PO BID [facility] Last Admin: 11/25/24 20:45 Dose: 500 mg Magnesium Hydroxide (Milk Of Magnesia 30 Ml Oral.Susp) 30 ml PO DAILY PRN PRN Reason: Constipation Melatonin (Melatonin 3 Mg Tablet) 6 mg PO BEDTIME PRN PRN Reason: Insomnia Nifedipine (Nifedipine Er 30 Mg Tab.Er.24) 60 mg PO DAILY [facility]; Protocol Last Admin: 11/25/24 18:06 Dose: Not Given Ondansetron HCl (Ondansetron Hcl 4 Mg/2 Ml Vial) 4 mg IVPUSH Q8H PRN PRN Reason: Nausea and Vomiting Last Admin: 11/25/24 22:15 Dose: 4 mg Sevelamer Carbonate (Sevelamer Carbonate Tablet 800 Mg Tablet) 800 mg PO TIDWM [facility] Last Admin: 11/25/24 20:45 Dose: 800 mg Sodium Chloride (0.9 % Sodium Chloride Flush 3 Ml Syringe) [facility] Last Admin: 11/25/24 18:07 Dose: 3 ml Sodium Zirconium Cyclosilicate (Sodium Zirconium Cyclosilicate 10 Gm Powd.Pack) 10 gm PO MOWEFR [facility] Home Medications ?Medication ?Instructions ?Recorded ?Confirmed ?Last Taken ?Type sevelamer carbonate 800 mg tablet 800 mg PO TIDWM 09/24/24 11/25/24 11/24/24 History sodium zirconium cyclosilicate 10 10 g PO MOWEFR 09/24/24 11/25/24 11/25/24 History gram oral powder packet (Lokelma) Physical Exam Vital Signs: Last Vital Signs Temp 99 F 11/25/24 19:08 Pulse 73 11/25/24 18:17 Resp 16 11/25/24 19:08 BP 186/92 H 11/25/24 19:08 Pulse Ox 95 11/25/24 19:08 O2 Del Method Room Air 11/25/24 19:08 BMI result Body Mass Index 21.0 Results Lab Results 11/25/24 09:13 11/25/24 09:13 Lab results: Chemistry 11/25/24 09:13 Sodium 138 Potassium 6.3 H* D Carbon Dioxide 24 BUN 57 H Creatinine 7.24 H* Calcium 8.8 Hematology 11/25/24 09:13 WBC 11.4 H Hgb 9.9 L Plt Count 227 Assessment and Plan (1) Encephalopathy, hypertensive: Status: Acute (2) Acute hyperkalemia: Status: Acute Plan ESRD mwf non-complaint with missed Tx and routinelky cuts Tx short now adm with mult sxms and hyperk 1. ESRD 2. HyperK 3. Severe HTN REC: HD today ordered on 1 K bath; low K diet and lokelma 10 gm non-HD days; incr BP meds; stress compliance; may need additional HD tomorrow--will reassess in am Procedures Date of Service Date of Service: 11/25/24
--- NOTE | 2024-11-25 22:26 | P.PNNP_ITS ---
Subjective Subjective Date of Service: 11/25/24 Interval history: Seen and examined, events noted Physical Exam 2 Vital Signs: Vital Signs: Last Vital Signs Temp 99 F 11/25/24 19:08 Pulse 73 11/25/24 18:17 Resp 16 11/25/24 19:08 BP 186/92 H 11/25/24 19:08 Pulse Ox 95 11/25/24 19:08 O2 Del Method Room Air 11/25/24 19:08 BMI result Body Mass Index 21.0 Objective Data Labs 11/25/24 09:13 11/25/24 09:13 Labs: Laboratory Results - last 24 hr 11/25/24 11/25/24 11/25/24 08:24 08:26 09:12 WBC RBC Hgb Hct MCV MCH MCHC RDW Plt Count MPV Immature Gran % (Auto) Neut % (Auto) Lymph % (Auto) Elliott % (Auto) Eos % (Auto) Baso % (Auto) Lymph # (Auto) Elliott # (Auto) Eos # (Auto) Baso # (Auto) Abs Immat Gran (auto) Absolute Neuts (auto) Absolute Nucleated RBC Nucleated RBC % (auto) PT Whole Blood PT 14.1 H INR Whole Blood INR 1.2 H VBG pH VBG pCO2 VBG pO2 VBG HCO3 VBG O2 Saturation VBG Base Excess Sodium Potassium Chloride Carbon Dioxide Anion Gap BUN Creatinine Estim Creat Clear Calc Estimated GFR POC Glucose 82 Random Glucose Lactic Acid Calcium Magnesium Total Bilirubin Direct Bilirubin AST ALT Alkaline Phosphatase Troponin I High Sens C-Reactive Protein B-Natriuretic Peptide Total Protein Albumin Lipase Ethyl Alcohol Cancelled Influenza Type A (PCR) Influenza Type B (PCR) RSV RNA Qual (PCR) SARS-CoV-2 RNA (RT-PCR) 11/25/24 11/25/24 11/25/24 09:13 09:17 09:25 WBC 11.4 H RBC 3.23 L Hgb 9.9 L Hct 30.9 L MCV 95.7 MCH 30.7 MCHC 32.0 RDW 14.6 Plt Count 227 MPV 10.5 Immature Gran % (Auto) 0.4 Neut % (Auto) 84.3 H Lymph % (Auto) 7.4 L Elliott % (Auto) 6.2 Eos % (Auto) 0.8 Baso % (Auto) 0.9 Lymph # (Auto) 0.8 L Elliott # (Auto) 0.7 Eos # (Auto) 0.1 Baso # (Auto) 0.1 Abs Immat Gran (auto) 0.05 H Absolute Neuts (auto) 9.6 H Absolute Nucleated RBC 0.000 Nucleated RBC % (auto) 0.0 PT 11.8 Whole Blood PT INR 1.0 Whole Blood INR VBG pH 7.37 VBG pCO2 53 VBG pO2 42 VBG HCO3 31 H VBG O2 Saturation 57.0 VBG Base Excess 5.4 Sodium 138 Potassium 6.3 H* D Chloride 95 L Carbon Dioxide 24 Anion Gap 25 H BUN 57 H Creatinine 7.24 H* Estim Creat Clear Calc 7.4 Estimated GFR 6 POC Glucose Random Glucose 86 Lactic Acid 0.7 Calcium 8.8 Magnesium 1.8 Total Bilirubin 0.7 Direct Bilirubin 0.2 AST 27 ALT 9 Alkaline Phosphatase 99 Troponin I High Sens 75.5 H* C-Reactive Protein 3.92 H B-Natriuretic Peptide 3053 H Total Protein 6.7 Albumin 3.7 Lipase 32 Ethyl Alcohol < 10 Influenza Type A (PCR) NEGATIVE Influenza Type B (PCR) NEGATIVE RSV RNA Qual (PCR) NEGATIVE SARS-CoV-2 RNA (RT-PCR) NEGATIVE Procedures Date of Service Date of Service: 11/25/24 Assessment & Plan Assessment and plan (1) Encephalopathy, hypertensive: Status: Acute (2) Acute hyperkalemia: Status: Acute Plan ESRD mwf non-complaint with missed Tx and routinelky cuts Tx short now adm with mult sxms and hyperk 1. ESRD 2. HyperK 3. Severe HTN REC: HD today ordered on 1 K bath; low K diet and lokelma 10 gm non-HD days; incr BP meds; stress compliance; may need additional HD tomorrow--will reassess in am Time Spent With Patient Time: Total time managing care of this patient today ____ minutes. Progress Note: Quality Stroke Does the patient have a stroke diagnosis?: No
[2024-11-25] MEDS: Dicyclomine HCl 10 MG CAPSULE PO (22:42)
[2024-11-26] VITALS (11 sets, daily range): BP systolic 148–207; BP diastolic 68–114; PULSE 67–85; RESP 16; TEMP 36.3–36.6; O2SAT 94–97
[2024-11-26] MEDS: Acetaminophen 325 MG TABLET 650 MG PO (00:23)
--- NOTE | 2024-11-26 01:15 | PC.NURSE ---
MD contacted as patient's BP elevated 192/94 HR 66 Hydralazine ordered, waiting for PHA to verify
[2024-11-26] MEDS: hydrALAZINE HCl 20 MG/ML VIAL IVPUSH (01:30)
--- NOTE | 2024-11-26 02:40 | PC.NURSE ---
IV hydralazine given. Patient cooperative for vitals at first, but refused full set while monitoring BP after hydralazine.
--- NOTE | 2024-11-26 05:08 | PM.EVENT ---
Event Note Date of Service: 11/26/24 Event Note: Lab reported positive blood culture with Gram-positive cocci. Initiating vancomycin until cultures finalize Time Spent With Patient Time: Total time managing care of this patient today ____ minutes.
[2024-11-26] MEDS: vancomycin HCL 1,250 MG in 0.9 % Sodium Chloride 250 ML 166.67 MG IV (06:22)
[2024-11-26] MEDS: Heparin Sodium,Porcine 5,000 UNIT/ML VIAL 5000 UNIT SUBCUT ×3 (06:24→21:13)
[2024-11-26] MEDS: Sevelamer Carbonate Tablet 800 MG TABLET PO ×3 (08:49→17:04)
[2024-11-26] MEDS: hydrALAZINE HCl 25 MG TABLET 75 MG PO ×3 (08:50→21:12)
[2024-11-26] MEDS: carvediloL 12.5 MG TABLET PO ×2 (08:50→21:12)
[2024-11-26] MEDS: NIFEdipine ER 30 MG TAB.ER.24 60 MG PO (08:50)
[2024-11-26] MEDS: levETIRAcetam 500 MG TABLET PO ×2 (08:50→21:13)
[2024-11-26] MEDS: ondansetron HCL 4 MG/2 ML VIAL IVPUSH ×2 (08:51→18:47)
[2024-11-26] MEDS: 0.9 % Sodium Chloride Flush 3 ML SYRINGE IVFLUSH ×2 (08:51→17:09)
--- NOTE | 2024-11-26 10:01 | MHC.CM.PN ---
Patient lives alone in an apartment and she is functionally independent. Patient has [facility] for Methadone delivery and HD at [facility] Q M/W/. Home/resume said services is the goal (VS ? of LT IV ABT); CM has initiated and will follow for dc planning. PCP is Dr. Judson Hansen and Patient will need assist with transport. Patient's Sister/Nica is the HCP.
--- NOTE | 2024-11-26 10:37 | HE.PHANOTE ---
RE: METHADONE VERIFICATION Last dose of methadone 50 mg was given on 11/23/24 @0537 with 6 take home doses (last until november 29) per Allen FERGUSON at [facility] [phone].
[2024-11-26] MEDS: methADONE HCl 20 MG/2 ML ORAL.CONC 50 MG PO (11:05)
[2024-11-26] MEDS: vancomycin HCL 125 MG CAPSULE PO ×3 (11:05→21:14)
--- NOTE | 2024-11-26 11:05 | MHC.RECOVRN ---
T/W went to assess pt following request for assessment. Pt in bed resting. Awoke to my voice and able to answer questions. As she was not feeling well she asked I return tomorrow for assessment. She did report she had not yet received her methadone. I asked pt's nurse Faby about her methadone dose as docuented in H&P. Nurse reports that provider is working on ordering. T/W reached out to provider Dr. Gonzalez and asked if assistance was needed with dose verification. He requested assist. I called to [facility] and spoke with Nica and was able to verify dose at 50mg QD. Last dosed in clinic on 11/23 with 50mg and 6 take homes. Provider Tran Guerrero NP was consulted and recommendations to re start at previous dose given. This recommendation was passes along to provider Dr. Gonzalez and Nurse Faby and dose verification sheet brought to floor. T/W will visit pt. tomorrow for full assessment.
--- NOTE | 2024-11-26 13:01 | HO.PM.IMPN ---
Subjective Subjective Date of Service: 11/26/24 Interval History: Seen and evaluated this morning Denies any fever or chills reporting diarrhea No other events Review of Systems Review of Systems: Yes all other systems are reviewed and are negative Physical Exam Vital Signs: Vital Signs: Last Vital Signs Temp 97.8 F 11/26/24 11:08 Pulse 85 11/26/24 11:08 Resp 16 11/26/24 11:08 BP 148/114 H 11/26/24 11:08 Pulse Ox 96 11/26/24 11:08 O2 Del Method Room Air 11/26/24 11:08 BMI result Body Mass Index 21.0 Const: Other: Constitutional : Awake, interactive, not in distress Neck : Normal inspection, Supple Cardiovascular : RRR, no JVP, no lower extremity edema Respiratory : good bilateral air entry, no crackles, wheezes or rhonchi Gastrointestinal: soft, lax, Normal bowel sounds, Non tender Skin : Warm, Dry, bruises , Dialysis cath chest wall clean Neurological : Alert & oriented x3, No focal deficit Objective Data Active Medications Acetaminophen (Acetaminophen 325 Mg Tablet) 650 mg PO Q6H PRN PRN Reason: Pain, Mild 1-3,fever,headache Last Admin: 11/26/24 00:23 Dose: 650 mg Documented By: TOREY Calcium Carbonate (Calcium Carbonate 750 Mg Tab.Chew) 750 mg PO Q4H PRN PRN Reason: Heartburn Carvedilol (Carvedilol 12.5 Mg Tablet) 12.5 mg PO BID [facility]; Protocol Last Admin: 11/26/24 08:50 Dose: 12.5 mg Documented By: BARRY Heparin Sodium (Porcine) (Heparin Sodium,Porcine 5,000 Unit/Ml Vial) 5,000 unit SUBCUT Q8H [facility] Last Admin: 11/26/24 06:24 Dose: 5,000 unit Documented By: TOREY Hydralazine HCl (Hydralazine Hcl 25 Mg Tablet) 75 mg PO TID [facility]; Protocol Last Admin: 11/26/24 08:50 Dose: 75 mg Documented By: BARRY Vancomycin HCl 500 mg/ Sodium (Chloride) 110 mls @ 110 mls/hr IV ONCE ONE Stop: 11/28/24 18:59 Levetiracetam (Levetiracetam 500 Mg Tablet) 500 mg PO BID [facility] Last Admin: 11/26/24 08:50 Dose: 500 mg Documented By: BARRY Magnesium Hydroxide (Milk Of Magnesia 30 Ml Oral.Susp) 30 ml PO DAILY PRN PRN Reason: Constipation Melatonin (Melatonin 3 Mg Tablet) 6 mg PO BEDTIME PRN PRN Reason: Insomnia Methadone HCl (Methadone Hcl 20 Mg/2 Ml Oral.Conc) 50 mg PO DAILY@0800 [facility] Last Admin: 11/26/24 11:05 Dose: 50 mg Documented By: BARRY Co-signed By: KITA Nifedipine (Nifedipine Er 30 Mg Tab.Er.24) 60 mg PO DAILY [facility]; Protocol Last Admin: 11/26/24 08:50 Dose: 60 mg Documented By: BARRY Ondansetron HCl (Ondansetron Hcl 4 Mg/2 Ml Vial) 4 mg IVPUSH Q8H PRN PRN Reason: Nausea and Vomiting Last Admin: 11/26/24 08:51 Dose: 4 mg Documented By: BARRY Pharmacy Consult (Consult Rx Vancomycin Dosing) 1 each MISCELLANE DAILY PRN PRN Reason: Consult order Sevelamer Carbonate (Sevelamer Carbonate Tablet 800 Mg Tablet) 800 mg PO TIDWM [facility] Last Admin: 11/26/24 11:05 Dose: 800 mg Documented By: BARRY Sodium Chloride (0.9 % Sodium Chloride Flush 3 Ml Syringe) 3 ml IVFLUSH QSHIFT [facility] Last Admin: 11/26/24 08:51 Dose: 3 ml Documented By: BARRY Sodium Zirconium Cyclosilicate (Sodium Zirconium Cyclosilicate 10 Gm Powd.Pack) 10 gm PO MOWEFR [facility] Vancomycin HCl (Vancomycin Hcl 125 Mg Capsule) 125 mg PO Q6H [facility] Last Admin: 11/26/24 11:05 Dose: 125 mg Documented By: BARRY Labs 11/25/24 09:13 11/25/24 09:13 Microbiology Microbiology Results: Microbiology 11/25/24 09:13 Blood Culture - Preliminary Blood - Venous Prelim: GPC Gram Stain only 11/25/24 08:57 Blood Culture - Preliminary Blood - Venous No growth after 24 hours. Assessment and Plan (1) Acute hyperkalemia: Status: Acute (2) Encephalopathy, hypertensive: Status: Acute (3) Hypertensive crisis: Status: Acute (4) Hypertensive urgency: Status: Acute (5) Positive blood culture: Status: Acute (6) Elevated troponin: Status: Acute (7) Clostridioides difficile diarrhea: Status: Acute Plan Pt is a 49-year-old female with a PMH significant for?ESRD on HD M/W/F w/ hx of noncompliance, chronic hyperkalemia on Lokelma, seizure disorder, anemia of chronic disease, substance use disorder on methadone, and current IVDU who presents to the ED from home for evaluation of confusion and high blood pressure. Pt is admitted to the hospital for treatment and further evaluation of hypertensive urgency with acute hypertensive encephalopathy, and hyperkalemia likely in the setting of ESRD noncompliant with hemodialysis. Hypertensive urgency with acute hypertensive encephalopathy Likely secondary to noncompliance with home medications and hemodialysis Pt given labetalol 10 mg IV x2, hydralazine 10 mg IV, and nitro paste in the ED CTA of head negative for acute abnormalities BP improved after dialysis Continue carvedilol, hydralazine, and nifedipine Increase Hydralazine to 75 mg tid Nephro to decide on HD today Monitor BP closely Positive blood culture one set growing GPC on Vancomycin follow final Cx Acute Hyperkalemia Had dialysis session and received Lokelma. refused lab this morning. Continue home Lokelma Treat with dialysis as needed Monitor on telemetry ESRD on HD M/W/F Questionable compliance Nephrology consult, follows with [facility] C.Diff infection Diagnosed on 11/11 Has Abdominal pain and diarrhea Reports ongoing for the past few weeks with 6+ episodes daily Tested positive for C diff gene and toxin on 11/11/2024 will likely need a long taper ID consult if no improvement Elevated troponin Initial troponin 75.05, similar to prior at 71.1 on 11/16 Troponins have been chronically elevated Pt without chest pain/pressure, palpitations. likely type 2 related to Hypertensive urgency and ESRD Monitor on telemetry Opioid use disorder with ongoing IVDU Currently injecting intramuscularly due to lack of IV access Addiction medicine consult Continue methadone Seizure disorder Continue Keppra Full Code DVT Prophylaxis: Heparin Pt will require a hospitalization overnight for treatment of?hypertensive urgency with hypertensive encephalopathy and hypokalemia likely in the setting of ESRD noncompliant with hemodialysis. Will need also IV antibiotics for positive blood cultures pending final sensitivity. Quality Stroke Does the patient have a stroke diagnosis?: No VTE Prior VTE?: No VTE Risk Level:: Medical - moderate - high VTE Device Contraindication: Treatment Not Indicated VTE Drug Contraindication: N/A - Med Ordered
[2024-11-27 03:33] VITALS: BP 133/97; PULSE 77; RESP 18; TEMP 36.9; O2SAT 96
--- NOTE | 2024-11-27 04:25 | PM.EVENT ---
Event Note Date of Service: 11/27/24 Event Note: As per the nurse, patient booked an Uber and wants to go home. I talked to the patient and she is argumentative and adamant that she wants to go home. She is not willing to stay until day provider comes in. Patient states she will go on Thursday for her dialysis. States she has blood pressure medications at home and oral vancomycin at home that she will continue to take. Patient is competent and understands the risks of leaving against medical advice including hypertensive emergency, fulminant C diff infection, bacteremia, sepsis and/or . Time Spent With Patient Time: Total time managing care of this patient today ____ minutes.
--- NOTE | 2024-11-27 06:18 | PC.NURSE ---
Patient expressed the desire to leave Against Medical Advice (AMA) and requested removal of the intravenous access (HILLARY). The covering physician Festus Moran was informed and spoke with the patient in person, but she remained firm in her decision to leave. Per protocol, the HILLARY + tele pack was removed, while the hemodialysis port remained intact as it was prior to admission, confirmed with the provider. Covering supervisor wet end Mireille Lafleur informed. The patient signed the AMA form and left the unit without incident.
--- NOTE | 2024-11-27 07:07 | PM.DS ---
DS: Providers Provider Date of Service: 11/29/24 Date of admission: 11/25/24 10:46 Date of discharge: 11/29/24 Primary care physician: Unknown Physician Consults: 11/25/24 10:47 Consult to Nephrology Routine Consulting Provider: [facility] Reason for consultation: ESRD noncompliant with HD, needing urgent dialysis 11/25/24 13:40 Addiction Medicine Provider Routine Consulting Provider: Addiction Covering Reason for consultation: Current IDVU, med management DS: Diagnosis Discharge Diagnosis (1) Acute hyperkalemia: Status: Acute (2) Encephalopathy, hypertensive: Status: Acute (3) Hypertensive crisis: Status: Acute (4) Hypertensive urgency: Status: Acute (5) Positive blood culture: Status: Acute (6) Elevated troponin: Status: Acute (7) Clostridioides difficile diarrhea: Status: Acute (8) Bacteremia due to vancomycin resistant Enterococcus: Status: Acute DS: Summary Hospital Course Hospital Course: Admission note HPI Pt is a 49-year-old female with a PMH significant for?ESRD on HD M/W/F w/ hx of noncompliance, chronic hyperkalemia on Lokelma, seizure disorder, anemia of chronic disease, substance use disorder on methadone, and current IVDU who presents to the ED from home for evaluation of confusion and high blood pressure. Pt was seen at home earlier today by VNA to administer methadone dose. VNA found pt to be slightly confused, asking ?weird? questions, having difficulty speaking, as well as hypertensive with SBP >200. Upon presentation to the ED pt was found to be hypertensive up to 234/123 and appeared occasionally altered and aphasic to ED provider. Patient's mentation improved after BP became better controlled. Currently alert and oriented x3. Has multiple complaints, including headache, blurriness, lightheadedness, and dizziness. Has also been experiencing central abdominal pain and diarrhea every few hours for the past couple of weeks. Some nausea, 1-2 episodes of vomiting. Denies chest pain/pressure. No significant SOB or difficulty breathing. Pt has a long hx of questionable compliance with hemodialysis and home medications. Reports trying to cut back on heroin use, though currently still injecting intramuscularly daily. Has not been producing urine x5 months. In the ED pt was hypertensive up to 234/123, vitals otherwise stable and WNL. Labs were significant for slight leukocytosis of 11.4, stable normocytic anemia of 9.9/30.9, potassium 6.3, anion gap 25, BUN 57, creatinine 7.24 (previous 5.32 on 11/16), initial troponin 75.5 (in line with prior), worsening BNP of 3253, and chronically elevated CRP of 3.92. Lactic acid WNL. Hepatic function WNL. Tested negative for flu, RSV, COVID. CXR showed no acute airspace disease. CT?of head negative for acute intracranial hemorrhage, though did show atherosclerotic disease, white matter disease and old lacunar infarcts likely secondary to small-vessel occlusive disease. EKG demonstrated sinus rhythm with short OK, but no evidence of significant ST elevations or depressions. Pt was treated in the ED with ondansetron, Keppra IV, labetalol 10 mg IV x2, hydralazine 10 mg IV, nitro paste, calcium gluconate, Lokelma, and bicarb. Pt is admitted to the hospital for treatment and further evaluation of hypertensive urgency with acute hypertensive encephalopathy, and hyperkalemia likely in the setting of ESRD noncompliant with hemodialysis. Hospital course # Hypertensive urgency with acute hypertensive encephalopathy Likely secondary to noncompliance with home medications and hemodialysis. given labetalol 10 mg IV x2, hydralazine 10 mg IV, and nitro paste in the ED. CTA of head negative for acute abnormalities BP improved after dialysis. Continued carvedilol, hydralazine, and nifedipine. Increase Hydralazine to 75 mg tid. # Positive blood culture one set growing GPC at time of discharge. grew VRE sensitive to Tigecycline and Zyvox. called the patient by night physician but refused to come back. I called her sister GABBY Harrison and left her a voice message. I also contacted her mixing supervisor Dr Dooley with the result. She received Vancomycin while inpatient. # Acute Hyperkalemia, Had dialysis session and received Lokelma. refused lab this morning. Continue home Lokelma # C.Diff infection Diagnosed on 11/11. Has Abdominal pain and diarrhea. Reports ongoing for the past few weeks with 6+ episodes daily. Tested positive for C diff gene and toxin on 11/11/2024 # Opioid use disorder with ongoing IVDU. Currently injecting intramuscularly due to lack of IV access. The patient left the hospital against medical advice./ Time Attestation Discharge Coordination Time (in mins): 43 Quality: Safe Use of Opioids Does Pt have an Active Cancer Diagnosis on the Problem List?: No Quality: Stroke Does the patient have a stroke diagnosis?: No Physical Exam Vital Signs: Vital Signs: Last Vital Signs Temp 98.5 F 11/27/24 03:33 Pulse 77 11/27/24 03:33 Resp 18 11/27/24 03:33 BP 133/97 H 11/27/24 03:33 Pulse Ox 96 11/27/24 03:33 O2 Del Method Room Air 11/27/24 03:33 BMI result Body Mass Index 21.0 Const: Other: AMA DS: Data Data Completed and Pending Completed studies during hospitalization [Text1]: Procedures Insertion of Endotracheal Airway into Trachea, Via Natural or Artificial Opening (09/24/24) Insertion of Infusion Device into Upper Vein, Percutaneous Approach (11/15/24) Performance of Urinary Filtration, Intermittent, Less than 6 Hours Per Day (11/15/24) Respiratory Ventilation, 24-96 Consecutive Hours (09/24/24) Transfusion of Nonautologous Red Blood Cells into Peripheral Vein, Percutaneous Approach (10/25/24) Labs on day of discharge: Preliminary micro results at discharge 11/25/24 09:13 Blood Culture - Preliminary Blood - Venous Prelim: GPC Gram Stain only 11/25/24 08:57 Blood Culture - Preliminary Blood - Venous No growth after 24 hours. Discharge Plan Discharge Anticipated Discharge Date/Time: 11/27/24 16:00 Patient Disposition: Left Against Medical Advice Discharge Diagnosis: No paper work given, was seen by MD Moran before leaving AMA Referrals: Physician,Unknown J [Primary Care Provider] - 1 Week Discharge Medications: No Action sevelamer carbonate 800 mg tablet 800 mg PO TIDWM Lokelma 10 gram powder in packet 10 g PO MOWEFR doxycycline hyclate 100 mg tablet 100 mg PO BID Qty: 20 0RF carvedilol 12.5 mg Tablet 12.5 mg PO BID Qty: 60 1RF Protocol: Hold for SBP/HR < HOLD for SBP < : 90 HOLD for HR < : 60 methadone [Methadose] 10 mg/mL Concentrate 50 mg PO DAILY@0800 30 Days Qty: 30 0RF Rx Instructions: Partial Fill upon patient request. levetiracetam [Keppra] 500 mg tablet 500 mg PO BID Qty: 60 3RF nifedipine 30 mg Tablet Extended Release 24hr 60 mg PO DAILY Qty: 90 0RF Protocol: Hold for SBP< HOLD for SBP < : 90 hydralazine 50 mg Tablet 50 mg PO TID Qty: 270 0RF Protocol: Hold for SBP< HOLD for SBP < : 90 Discharge Orders: Discharge Order (Routine); Ordered 11/28/24 Ordered By: Orlando Gonzalez Print Language: Ecuadorean Care Plan Goals: . Health Concerns: . Plan of Treatment: . Assessment: . Discharge Date/Time: 11/27/24 04:55
== END 2024-11-27 04:55 | disposition left against medical advice (07) | DRG 52 ==
LOC: HO.ED 10:43 → HO.EDOVER 10:52 → HO.IMC 17:54
PROVIDERS: Admitting Provider Student in an Organized Health Care Education/Training Program; Emergency Provider Emergency Medicine; Visit Provider Student in an Organized Health Care Education/Training Program
DX: I67.4 Hypertensive encephalopathy (principal); I12.0 Hypertensive chronic kidney disease with stage 5 chronic kidney disease or end stage renal disease; R78.81 Bacteremia; D63.1 Anemia in chronic kidney disease; N18.6 End stage renal disease; F11.20 Opioid dependence, uncomplicated; B95.2 Enterococcus as the cause of diseases classified elsewhere; Z16.21 Resistance to vancomycin; E87.5 Hyperkalemia; I16.9 Hypertensive crisis, unspecified; G40.909 Epilepsy, unspecified, not intractable, without status epilepticus; Z91.148 Patient's other noncompliance with medication regimen for other reason; Z91.158 Patient's noncompliance with renal dialysis for other reason; Z99.2 Dependence on renal dialysis; Z20.822 Contact with and (suspected) exposure to COVID-19; Z79.899 Other long term (current) drug therapy
CPT/HCPCS: 0241U; 36415; 70450; 71045; 80048; 80076; 80307; 82803; 82947; 83605; 83690; 83735; 83880; 84484; 85025; 85610; 86140; 87040; 87077; 87186; 87205; 90999; 93005; 99285; J0360; J0613; J1644; J1920; J1953; J2405; J3371

== ENCOUNTER → 2024-11-25 08:22 | Outpatient (BNV) | payer MEDICAID, SELFPAY | PROVIDERS: Admitting Provider Student in an Organized Health Care Education/Training Program; Emergency Provider Emergency Medicine; Visit Provider Internal Medicine Cardiovascular Disease | DX: I44.4 Left anterior fascicular block (principal) | CPT/HCPCS: 93010 ==

== ENCOUNTER → 2024-11-25 08:22 | Outpatient (BNV) | payer MEDICAID, SELFPAY | PROVIDERS: Emergency Provider Emergency Medicine; Visit Provider Radiology Diagnostic Radiology | DX: I67.2 Cerebral atherosclerosis (principal); R90.82 White matter disease, unspecified; R06.00 Dyspnea, unspecified | CPT/HCPCS: 70450; 71045 ==

== ENCOUNTER → 2024-11-25 10:46 | Outpatient (BNV) | payer MEDICAID, SELFPAY | PROVIDERS: Admitting Provider Student in an Organized Health Care Education/Training Program; Emergency Provider Emergency Medicine; Visit Provider Student in an Organized Health Care Education/Training Program | DX: I67.4 Hypertensive encephalopathy (principal); E87.5 Hyperkalemia | CPT/HCPCS: 99223; 99232; 99239; 99499 ==

== ENCOUNTER 2024-11-29 20:31 | Inpatient (IN) | payer MEDICAID, SELFPAY ==
[2024-11-29 20:39] VITALS: BP 211/95; PULSE 95; RESP 18; TEMP 36.6; O2SAT 96; BMI 19.6
[2024-11-29 23:01] VITALS: BP 179/104; PULSE 79; RESP 16; TEMP 37.2; O2SAT 95
--- NOTE | 2024-11-29 23:18 | ED.GENADULT ---
HPI - General Adult General Chief complaint: General Medical Stated complaint: Abnormal labs Time Seen by Provider: 11/29/24 23:02 Source: patient, RN notes reviewed and old records reviewed Mode of arrival: ambulatory Limitations: no limitations History of Present Illness ED Provider: Gary RIZVI narrative: 49-year-old female past medical history significant for active IV drug abuse, end-stage renal disease on dialysis Thursday, Thursday, Thursday, hyperkalemia, seizure disorder, anemia of chronic disease presents for evaluation of positive blood cultures. Patient was admitted to this facility on 11/25/2024 She was admitted for hypertensive emergency, confusion with a slight leukocytosis. The patient ultimately with a left against medical advice 2 days later on 11/27/2024. After the patient had left she was found to have positive blood cultures with Enterococcus faecium that was resistant to vancomycin and ampicillin. The patient was called to come back but refused The patient reports that her family told her to return to the hospital. She complains of nausea but denies fevers, chills She reports last using IV drugs yesterday Related Data Home Medications ?Medication ?Instructions ?Recorded ?Confirmed sevelamer carbonate 800 mg tablet 800 mg PO TIDWM 09/24/24 11/25/24 sodium zirconium cyclosilicate 10 10 g PO MOWEFR 09/24/24 11/25/24 gram oral powder packet (Lokelma) Previous Rx's ?Medication ?Instructions ?Recorded carvedilol 12.5 mg tablet 12.5 mg PO BID #60 tabs 10/28/24 methadone 10 mg/mL oral 50 mg (5 mL) PO DAILY@0800 30 days 10/28/24 concentrate (Methadose) #30 mL doxycycline hyclate 100 mg tablet 100 mg PO BID #20 tabs 11/09/24 levetiracetam 500 mg tablet 500 mg PO BID #60 tabs 11/12/24 (Keppra) hydralazine 50 mg tablet 50 mg PO TID #270 tabs 11/16/24 nifedipine 30 mg tablet,extended 60 mg PO DAILY #90 tabs 11/16/24 release 24 hr Allergies Allergy/AdvReac Type Severity Reaction Status Date / Time No Known Allergies Allergy Verified 11/29/24 20:42 Review of Systems Constitutional: Constitutional: Denies body ache(s), Denies chills, Denies fever(s) and Reports headache(s) Eyes: Eyes: Denies blurry vision ENT: Denies vertigo, Denies dizziness and Reports headache(s) Cardiovascular: Cardiovascular: Denies chest pain, Denies chest pain at rest and Denies dyspnea Respiratory: Respiratory: Denies cough and Denies dyspnea Gastrointestinal: Gastrointestinal: Denies abdominal pain, Denies diarrhea, Denies loose stools, Reports nausea and Reports vomiting Musculoskeletal: Musculoskeletal: Denies back pain Integumentary/Breasts: Skin/Breast: Denies rash Neurologic: Denies vertigo, Denies dizziness and Reports headache(s) Psychiatric: Psychiatric: Reports anxiety [facility] Past Medical History Medical History (Updated 11/29/24 @ 23:18 by Gwyn Vega) Clostridioides difficile diarrhea Traumatic hematoma of left upper arm Seizure Opioid use disorder Hypertension, uncontrolled Anemia due to chronic kidney disease ESRD (end stage renal disease) on dialysis Medical non-compliance Norovirus Anemia HTN (hypertension) Drug abuse ESRD (end stage renal disease) Social History Social History Household Members: Other Household Members Other:: roommate Housing: Apartment Do you presently have visiting nurse or other home services: Yes Alcohol intake: unknown Comment: pt refusing bed alarm and yellow fall socks Patient Tobacco Use Status: Former Tobacco user Substance Use Type: Heroin Advance Directives: Yes Advance Directives on File: Yes Advance Directives Date on File: 09/25/24 Do you have a plan to hurt others: No Plan service: No Physical Exam ED Vital Signs: Vital Signs - 24 hr 11/29/24 20:39 11/29/24 23:01 Temperature 97.9 F 98.9 F Pulse Rate 95 79 Respiratory Rate 18 16 Blood Pressure 211/95 H 179/104 H Pulse Oximetry 96 95 Oxygen Delivery Method Room Air Room Air BMI result Body Mass Index 19.6 Const General: comfortable, no acute distress, alert and awake Nutritional Appearance: thin and underweight Orientation/consciousness: patient oriented x3 HENMT Head: Yes normocephalic and Yes atraumatic Eyes Eyelids: Yes eyelids normal Conjunctivae: conjunctivae normal Sclerae: sclerae normal Corneas: corneas normal Pupils: Equal, round and reactive pupils present EOM: EOMs intact bilaterally Neck Neck: Yes full ROM Resp Effort & Inspection: normal respiratory effort, able to speak in complete sentences and not labored Cardio Rate: regular rate Rhythm: regular rhythm GI Inspection: No distended Palpation (GI): Soft to palpation, not firm, nontender, no guarding and not rigid Skin General skin exam: elasticity normal Neuro General: patient oriented x3 Cranial nerves: Yes CN's II-XII intact bilaterally, Yes Equal, round and reactive pupils present and Yes Bilaterally intact EOM present Cognition (Neuro): normal cognition Extrem Other: Moving all extremities well without any obvious deformities Medications Administered Discontinued Medications Generic Name Dose Route Start Last Admin Trade Name Freq PRN Reason Stop Dose Admin Diazepam 2.5 mg 11/29/24 23:15 11/29/24 23:26 Diazepam 10 Mg/2 Ml Cartridge IM 11/29/24 23:16 2.5 mg STAT STA Administration Linezolid 600 mg in 300 mls @ 300 mls/hr 11/29/24 23:16 11/30/24 00:25 Zyvox/D5w IV 11/30/24 00:15 300 mls/hr ONCE ONE Administration Metoclopramide HCl 10 mg 11/29/24 23:14 11/29/24 23:26 Metoclopramide Hcl 10 Mg Tablet PO 11/29/24 23:15 10 mg ONCE ONE Administration Medical Decision Making Medical Decision Making [facility] Narrative: 49-year-old female presents for evaluation of abnormal blood cultures. Her blood culture was positive for vancomycin resistant Enterococcus faecium. This was sensitive to linezolid which I ordered. The patient was refusing repeat labs and blood cultures until she received anxiety medication. I ordered IV diazepam as we are out of Ativan. She reports that she is willing to be admitted to the hospital for treatment of her bacteremia. Plan for repeat labs, IV antibiotics and admission Differential Diagnosis Differential Diagnoses: The differential diagnosis associated with the presentation includes Bacteremia IV drug abuse Medication noncompliance Anxiety Substance abuse Admission/Observation Consideration of admission/observation: Escalation of care including admission/observation considered Consult Healthcare Provider Management of the patient was discussed with: Hospitalist and Grab Operator (Dr Aleman, nephrology for routine dialysis) Lab Data 11/30/24 00:25 11/30/24 00:25 Labs: Lab Results 11/30/24 Range/Units 00:25 WBC 8.8 (4.8-10.8) X10*3/uL RBC 3.52 L (4.20-5.50) X10*6/uL Hgb 10.7 L (12.0-16.0) g/dl Hct 32.9 L (37.0-47.0) % MCV 93.5 (80.0-98.0) fL MCH 30.4 (27.0-33.0) pg MCHC 32.5 (31.0-35.0) g/dl RDW 14.1 (11.0-16.0) % Plt Count 254 (160-400) X10*3/uL MPV 11.4 (9.4-12.3) fL Immature Gran % (Auto) 0.3 (0.0-0.4) % Neut % (Auto) 85.4 H (45-73) % Lymph % (Auto) 8.3 L (20-40) % [place] % (Auto) 5.3 (2-11) % Eos % (Auto) 0.2 (0-4) % Baso % (Auto) 0.5 (0-2) % Lymph # (Auto) 0.7 L (1.2-4.9) X10*3/uL [place] # (Auto) 0.5 (0.1-1.2) X10*3/uL Eos # (Auto) 0.0 (0.0-0.4) X10*3/uL Baso # (Auto) 0.0 (0.0-0.2) X10*3/uL Abs Immat Gran (auto) 0.03 (0.00-0.03) X10*3/uL Absolute Neuts (auto) 7.5 (2.0-8.3) x10*3/uL Absolute Nucleated RBC 0.000 (0.0-0.012) X10*3/uL Nucleated RBC % (auto) 0.0 (0.0-0.2) /100WBC Lactic Acid 1.0 (0.5-2.0) mmol/L Discharge Plan Discharge Clinical Impression: Positive blood culture Patient Disposition: Admitted As Inpatient Print Language: Russian
[2024-11-29] MEDS: Metoclopramide HCl 10 MG TABLET PO (23:26)
[2024-11-29] MEDS: diazePAM 10 MG/2 ML CARTRIDGE 2.5 MG IM (23:26)
--- NOTE | 2024-11-29 23:26 | PC.NURSE ---
Pt medicated per MAR for anxiety prior to lab draw/IV insertion.
[2024-11-30] VITALS (16 sets, daily range): BP systolic 135–221; BP diastolic 72–130; PULSE 67–82; RESP 15–19; TEMP 36.3–37.1; O2SAT 93–97; BMI 19.6
[2024-11-30] MEDS: Linezolid/D5W 600 MG/300 ML PIGGYBACK 300 MG IV ×3 (00:25→23:37)
[2024-11-30 00:29] LABS: Basophils Percent Auto 0.5 % (0-2); Eosinophils Percent Auto 0.2 % (0-4); Hematocrit 32.9 % (37.0-47.0); Hemoglobin 10.7 g/dl (12.0-16.0); Imm Gran Abs Auto 0.03 X10*3/uL (0.00-0.03); Imm Gran Pct Auto 0.3 % (0.0-0.4); Lymphocytes Absolute Auto 0.7 X10*3/uL (1.2-4.9); Lymphocytes Percent Auto 8.3 % (20-40); Mean Corpuscular HGB Conc 32.5 g/dl (31.0-35.0); Mean Corpuscular Hemoglobin 30.4 pg (27.0-33.0); Mean Corpuscular Volume 93.5 fL (80.0-98.0); Mean Platelet Volume 11.4 fL (9.4-12.3); Monocytes Absolute Auto 0.5 X10*3/uL (0.1-1.2); Monocytes Percent Auto 5.3 % (2-11); Neutrophils Absolute Auto 7.5 x10*3/uL (2.0-8.3); Neutrophils Percent Auto 85.4 % (45-73); Platelet Count 254 X10*3/uL (160-400); Red Blood Count 3.52 X10*6/uL (4.20-5.50); Red Cell Distribution Width 14.1 % (11.0-16.0); White Blood Count 8.8 X10*3/uL (4.8-10.8)
[2024-11-30 00:30] LABS: MANUAL DIFF FLAG NO
--- NOTE | 2024-11-30 00:37 | P.HPHOSP_ITS ---
History of Present Illness Date of Service: 11/30/24 Chief Complaint: bacteremia This is a 49 year old female with pertinent history of ESRD on hemodialysis Thursday/Thursday/Thursday with history of noncompliance, seizure disorder, anemia of chronic kidney disease, polysubstance IV drug use disorder on methadone who was recently admitted for hypertensive urgency and left AMA on 11/27. Patient's blood culture grew VRE and she was called back to the ER. Patient initially refused to come back to the hospital but patient's family convinced her to go to the hospital. She endorses using IV drugs after she left AMA. Patient states she will stay in the hospital this time. Does complain of nausea. No fever, chills, chest pain, palpitations, shortness of breath, abdominal pain, changes in urinary or bowel habits. Patient states she took her p.o. antihypertensives and Keppra after leaving AMA but did not take p.o. vancomycin for C diff. In the emergency department, patient was given IV linezolid Review of Systems 2 Constitutional: Constitutional: Reports no additional constitutional complaints Cardiovascular: Cardiovascular: Reports no additional cardiovascular complaints Respiratory: Respiratory: Reports no additional respiratory complaints Gastrointestinal: Gastrointestinal: Reports no additional gastrointestinal complaints Genitourinary: Genitourinary: Reports no additional female genitourinary complaints [facility] Medical History Clostridioides difficile diarrhea Traumatic hematoma of left upper arm Seizure Opioid use disorder Hypertension, uncontrolled Anemia due to chronic kidney disease ESRD (end stage renal disease) on dialysis Medical non-compliance Norovirus Anemia HTN (hypertension) Drug abuse ESRD (end stage renal disease) Social History Household Members: Other Household Members Other:: roommate Housing: Apartment Do you presently have visiting nurse or other home services: Yes Alcohol intake: unknown Comment: pt refusing bed alarm and yellow fall socks Patient Tobacco Use Status: Former Tobacco user Substance Use Type: Heroin Advance Directives: Yes Advance Directives on File: Yes Advance Directives Date on File: 09/25/24 Do you have a plan to hurt others: No Plan service: No Meds Allergies Allergy/AdvReac Type Severity Reaction Status Date / Time No Known Allergies Allergy Verified 11/29/24 20:42 Home Medications ?Medication ?Instructions ?Recorded ?Confirmed ?Last Taken ?Type sevelamer carbonate 800 mg tablet 800 mg PO TIDWM 09/24/24 11/25/24 11/24/24 History sodium zirconium cyclosilicate 10 10 g PO MOWEFR 09/24/24 11/25/24 11/25/24 History gram oral powder packet (Lokelma) Physical Exam 2 Vital Signs and Narrative: Vital Signs: Last Vital Signs Temp 98.9 F 11/29/24 23:01 Pulse 79 11/29/24 23:01 Resp 16 11/29/24 23:01 BP 179/104 H 11/29/24 23:01 Pulse Ox 95 11/29/24 23:01 O2 Del Method Room Air 11/29/24 23:01 BMI result Body Mass Index 19.6 Middle-aged female lying in bed in no distress Neck supple, no JVD, chest wall dialysis catheter clean Regular rate and rhythm, S1-S2 heard Regular breath sounds bilaterally, no wheezing or crackles appreciated Abdomen soft nontender, no guarding, no rigidity Patient is awake, alert and oriented to self, place, time and person ; no focal motor deficit Psych: Normal mood Results Labs 11/30/24 00:25 11/30/24 00:25 Labs: Laboratory Results - last 24 hr 11/30/24 00:25 MCV 93.5 MCH 30.4 MCHC 32.5 RDW 14.1 Plt Count 254 MPV 11.4 Immature Gran % (Auto) 0.3 Neut % (Auto) 85.4 H Lymph % (Auto) 8.3 L [place] % (Auto) 5.3 Eos % (Auto) 0.2 Baso % (Auto) 0.5 Lymph # (Auto) 0.7 L [place] # (Auto) 0.5 Eos # (Auto) 0.0 Baso # (Auto) 0.0 Abs Immat Gran (auto) 0.03 Absolute Neuts (auto) 7.5 Absolute Nucleated RBC 0.000 Nucleated RBC % (auto) 0.0 Assessment and Plan (1) Positive blood culture: Status: Acute (2) Bacteremia due to vancomycin resistant Enterococcus: Status: Acute Plan This is a 49 year old female with pertinent history of ESRD on hemodialysis Thursday/Thursday/Thursday with history of noncompliance, seizure disorder, anemia of chronic kidney disease, polysubstance IV drug use disorder on methadone who was recently admitted for hypertensive urgency and left AMA on 11/27. Patient is blood culture grew VRE and she was called back to the ER. #. Gram-positive bacteremia, VRE: Patient given IV linezolid in the ER. Repeat blood cultures pending. Consulted Infectious Disease, appreciate assistance #. C diff infection: Patient on p.o. vancomycin during previous admission but left AMA on 11/27. Will resume p.o. vancomycin. Will need long taper #. ESRD on hemodialysis: Consulted Nephrology #. Hyperkalemia: Given IV calcium gluconate and Lokelma #. Uncontrolled blood pressure: Likely due to medication noncompliance: Will resume p.o. home antihypertensives and titrate #. Seizure disorder: On Keppra #. Polysubstance use disorder: Consulted Addiction Team. Patient on methadone #. Anemia of chronic kidney disease: At baseline Med rec pending DVT prophylaxis: Heparin Full code Admit as inpatient and will require two night minimum hospital stay for IV antibiotics (as above), which is not possible in a lesser acute setting. Quality Stroke Does the patient have a stroke diagnosis?: No VTE Prior VTE?: No VTE Risk Level:: Medical - moderate - high VTE Device Contraindication: Treatment Not Indicated VTE Drug Contraindication: N/A - Med Ordered
--- NOTE | 2024-11-30 00:44 | PC.NURSE ---
Pt resting comfortably in stretcher. Request room curtain remain open. Denies any other needs at this time.
[2024-11-30 00:50] LABS: Alanine Aminotransferase 20 U/L (0-31); Albumin Level 4.3 g/dL (3.5-5.0); Alkaline Phosphatase 158 U/L (39-117); Anion Gap 25 (12-20); Aspartate Amino Transferase 36 U/L (5-31); Bilirubin Total 0.6 mg/dL (0.0-1.0); Blood Urea Nitrogen 57 mg/dL (9-16); Calcium 9.5 mg/dL (8.4-10.2); Carbon Dioxide 31 mmol/L (22-29); Chloride 89 mmol/L (96-108); Glucose Random 114 mg/dL (60-115); Potassium 5.7 mmol/L (3.3-5.1); Sodium 139 mmol/L (135-145); Total Protein 7.8 g/dL (6.5-8.0)
[2024-11-30 01:02] LABS: Creatinine Clr Calc Pharmacy 6.7; Estimated Glomerular Filt Rate 6
[2024-11-30] MEDS: Calcium Gluconate/NaCl,Iso-Osm 2 GM/100 ML PLAST..BAG IV (01:40)
[2024-11-30] MEDS: ondansetron HCL 4 MG/2 ML VIAL IVPUSH (01:44)
--- NOTE | 2024-11-30 01:45 | PC.NURSE ---
Pt states she cannot take her oral medications at this time due to nausea. Pt medicated per MAR with zofran for nausea.
[2024-11-30] MEDS: levETIRAcetam 500 MG TABLET PO ×3 (02:13→20:49)
[2024-11-30] MEDS: vancomycin HCL 125 MG CAPSULE PO ×4 (02:13→20:15)
[2024-11-30] MEDS: Sodium Zirconium Cyclosilicate 10 GM POWD.PACK PO (02:13)
[2024-11-30] MEDS: Acetaminophen 325 MG TABLET 650 MG PO ×2 (03:01→08:10)
[2024-11-30] MEDS: hydrALAZINE HCl 20 MG/ML VIAL IVPUSH ×2 (03:04→03:55)
[2024-11-30] MEDS: Nitroglycerin 2 % Oint 1 GM Packet 1 INCH TRANSDERMA (03:55)
--- NOTE | 2024-11-30 04:30 | PC.NURSE ---
This comic book writer assumed care of this Pt at 0300.
[2024-11-30] MEDS: Metoclopramide HCl 10 MG/2 ML VIAL IVPUSH (04:54)
[2024-11-30] MEDS: Zolpidem Tartrate 5 MG TABLET PO (04:54)
[2024-11-30 05:38] LABS: Basophils Percent Auto 0.4 % (0-2); Hematocrit 31.1 % (37.0-47.0); Hemoglobin 10.4 g/dl (12.0-16.0); Imm Gran Abs Auto 0.04 X10*3/uL (0.00-0.03); Imm Gran Pct Auto 0.5 % (0.0-0.4); Lymphocytes Absolute Auto 0.8 X10*3/uL (1.2-4.9); Lymphocytes Percent Auto 9.9 % (20-40); MANUAL DIFF FLAG NO; Mean Corpuscular HGB Conc 33.4 g/dl (31.0-35.0); Mean Corpuscular Hemoglobin 30.7 pg (27.0-33.0); Mean Corpuscular Volume 91.7 fL (80.0-98.0); Monocytes Absolute Auto 0.4 X10*3/uL (0.1-1.2); Monocytes Percent Auto 4.6 % (2-11); Neutrophils Percent Auto 84.6 % (45-73); Platelet Count 244 X10*3/uL (160-400); Red Blood Count 3.39 X10*6/uL (4.20-5.50); Red Cell Distribution Width 13.9 % (11.0-16.0); White Blood Count 8.3 X10*3/uL (4.8-10.8)
[2024-11-30] MEDS: traMADoL HCL 50 MG TABLET PO (05:59)
[2024-11-30 06:00] LABS: Creatinine Clr Calc Pharmacy 6.7; Estimated Glomerular Filt Rate 6
[2024-11-30] MEDS: Labetalol HCL 100 MG/20 ML VIAL 20 MG IVPUSH (06:00)
[2024-11-30] MEDS: LORazepam 1 MG TABLET PO (06:00)
[2024-11-30 06:01] LABS: Anion Gap 25 (12-20); Blood Urea Nitrogen 59 mg/dL (9-16); Calcium 10.1 mg/dL (8.4-10.2); Carbon Dioxide 29 mmol/L (22-29); Chloride 88 mmol/L (96-108); Glucose Random 119 mg/dL (60-115); Potassium 5.9 mmol/L (3.3-5.1); Sodium 136 mmol/L (135-145)
--- NOTE | 2024-11-30 07:18 | PC.NURSE ---
Admit report: Admitted to this facility on 11/25/2024, left against medical advice 2 days later on 11/27/2024, Pt was D/C with ABX but did not take p.o. vancomycin for C diff. Was called to come back for + blood cultures (positive Enterococcus faecium that was resistant to vancomycin and ampicillin). Pt reported nausea but denies fevers, chills She reports last using IV drugs yesterday. Patient given IV linezolid in the ER. Repeat blood cultures pending. Consulted Infectious Disease. Pt hypertensive not taking home meds. Nitropaste to left chest, hydralazine given. 20 mg Labetolol IV given. Pt dialysis (M/W/F), port to R chest. Ultrasound guided IV to left upper arm. Pt A&Ox3, ambulates independently with steady gait.
[2024-11-30] MEDS: Heparin Sodium,Porcine 5,000 UNIT/ML VIAL 5000 UNIT SUBCUT ×2 (08:11→20:50)
[2024-11-30] MEDS: 0.9 % Sodium Chloride Flush 3 ML SYRINGE IVFLUSH ×3 (08:15→20:52)
--- NOTE | 2024-11-30 09:32 | PC.NURSE ---
Pt arrived to unit a&Ox4 and cooperative with care at approximately 08:56. BP elevated 190/100, MD Gonzalez made aware. Pt endorsing headache. Pt called for HD fpr 0930.
--- NOTE | 2024-11-30 10:08 | PHA.MEDREC ---
Addendum entered by Dariana Flores RPh 11/30/24 10:21: Reviewed by [facility] Original Note: Pharmacy Consult ? Medication Reconciliation Pharmacy has completed the medication reconciliation. Spoke to patient to confirm med list. Patient states she takes Hydralazine 50 mg tid, however claims has Hydralazine 25 mg tid from [facility] pharmacy, and Nifedipine 60 mg daily, however claims has Nifedipine 30 mg daily. Patient states she is still taking Doxycycline Hyc 100 mg ,however there are no claims. Patient states she take Methadone 50 mg daily from [facility] pharmacy , last dose was 11/29/24
[2024-11-30] MEDS: hydrALAZINE HCl 50 MG TABLET PO ×3 (11:44→20:49)
[2024-11-30] MEDS: carvediloL 12.5 MG TABLET PO ×2 (11:44→20:48)
--- NOTE | 2024-11-30 11:56 | HO.PM.IMPN ---
Subjective Subjective Date of Service: 11/30/24 Interval History: Seen and evaluated this farhat feels weak and has no energy went to dialysis Review of Systems Review of Systems: Yes all other systems are reviewed and are negative Physical Exam Vital Signs: Vital Signs: Last Vital Signs Temp 98 F 11/30/24 08:00 Pulse 82 11/30/24 08:00 Resp 15 11/30/24 08:00 BP 154/121 H 11/30/24 11:45 Pulse Ox 93 11/30/24 08:00 O2 Del Method Room Air 11/30/24 08:00 BMI result Body Mass Index 19.6 Const: Other: Constitutional : Awake, interactive, not in distress Neck : Normal inspection, Supple Cardiovascular : RRR, no JVP, no lower extremity edema Respiratory : good bilateral air entry, no crackles, wheezes or rhonchi Gastrointestinal: soft, lax, Normal bowel sounds, Non tender Skin : Warm, Dry, bruises , Dialysis cath chest wall clean with no erythema or tenderness Neurological : Alert & oriented x3, No focal deficit Objective Data Active Medications Acetaminophen (Acetaminophen 325 Mg Tablet) 650 mg PO Q6H PRN PRN Reason: Pain, Mild 1-3,fever,headache Last Admin: 11/30/24 08:10 Dose: 650 mg Documented By: CARLOS Calcium Carbonate (Calcium Carbonate 750 Mg Tab.Chew) 750 mg PO Q4H PRN PRN Reason: Heartburn Carvedilol (Carvedilol 12.5 Mg Tablet) 12.5 mg PO BID [facility]; Protocol Last Admin: 11/30/24 11:44 Dose: 12.5 mg Documented By: SULEMA Heparin Sodium (Porcine) (Heparin Sodium,Porcine 5,000 Unit/Ml Vial) 5,000 unit SUBCUT BID [facility] Last Admin: 11/30/24 08:11 Dose: 5,000 unit Documented By: CARLOS Hydralazine HCl (Hydralazine Hcl 50 Mg Tablet) 50 mg PO TID [facility]; Protocol Last Admin: 11/30/24 11:44 Dose: 50 mg Documented By: SULEMA Linezolid (Zyvox/D5w) 600 mg in 300 mls @ 300 mls/hr IV Q12H [facility] Levetiracetam (Levetiracetam 500 Mg Tablet) 500 mg PO BID [facility] Last Admin: 11/30/24 08:10 Dose: 500 mg Documented By: CARLOS Magnesium Hydroxide (Milk Of Magnesia 30 Ml Oral.Susp) 30 ml PO DAILY PRN PRN Reason: Constipation Melatonin (Melatonin 3 Mg Tablet) 6 mg PO BEDTIME PRN PRN Reason: Insomnia Methadone HCl (Methadone Hcl 20 Mg/2 Ml Oral.Conc) 50 mg PO DAILY@0800 [facility] Nifedipine (Nifedipine Er 30 Mg Tab.Er.24) 60 mg PO DAILY [facility]; Protocol Ondansetron HCl (Ondansetron Hcl 4 Mg/2 Ml Vial) 4 mg IVPUSH Q8H PRN PRN Reason: Nausea and Vomiting Last Admin: 11/30/24 01:44 Dose: 4 mg Documented By: MARILYN Sevelamer Carbonate (Sevelamer Carbonate Tablet 800 Mg Tablet) 800 mg PO TIDWM [facility] Sodium Chloride (0.9 % Sodium Chloride Flush 3 Ml Syringe) 3 ml IVFLUSH QSHIFT [facility] Last Admin: 11/30/24 08:15 Dose: 3 ml Documented By: CARLOS Sodium Zirconium Cyclosilicate (Sodium Zirconium Cyclosilicate 10 Gm Powd.Pack) 10 gm PO MOWEFR [facility] Vancomycin HCl (Vancomycin Hcl 125 Mg Capsule) 125 mg PO Q6H [facility] Last Admin: 11/30/24 08:10 Dose: 125 mg Documented By: CARLOS Zolpidem Tartrate (Zolpidem Tartrate 5 Mg Tablet) 5 mg PO BEDTIME PRN PRN Reason: Insomnia Last Admin: 11/30/24 04:54 Dose: 5 mg Documented By: SARAH Labs 11/30/24 05:34 11/30/24 05:34 Labs: Laboratory Results - last 24 hr 11/30/24 11/30/24 00:25 05:34 MCV 93.5 91.7 MCH 30.4 30.7 MCHC 32.5 33.4 RDW 14.1 13.9 Plt Count 254 244 MPV 11.4 11.0 Immature Gran % (Auto) 0.3 0.5 H Neut % (Auto) 85.4 H 84.6 H Lymph % (Auto) 8.3 L 9.9 L [place] % (Auto) 5.3 4.6 Eos % (Auto) 0.2 0.0 Baso % (Auto) 0.5 0.4 Lymph # (Auto) 0.7 L 0.8 L [place] # (Auto) 0.5 0.4 Eos # (Auto) 0.0 0.0 Baso # (Auto) 0.0 0.0 Abs Immat Gran (auto) 0.03 0.04 H Absolute Neuts (auto) 7.5 7.0 Absolute Nucleated RBC 0.000 0.000 Nucleated RBC % (auto) 0.0 0.0 Anion Gap 25 H 25 H Estim Creat Clear Calc 6.7 6.7 Estimated GFR 6 6 Random Glucose 114 119 H Lactic Acid 1.0 Calcium 9.5 D 10.1 D Total Bilirubin 0.6 AST 36 H ALT 20 Alkaline Phosphatase 158 H Total Protein 7.8 Albumin 4.3 Assessment and Plan (1) Bacteremia due to vancomycin resistant Enterococcus: Status: Acute (2) Clostridioides difficile diarrhea: Status: Acute (3) Acute hyperkalemia: Status: Acute (4) Hypertensive urgency: Status: Acute Plan This is a 49 year old female with pertinent history of ESRD on hemodialysis Thursday/Thursday/Thursday with history of noncompliance, seizure disorder, anemia of chronic kidney disease, polysubstance IV drug use disorder on methadone who was recently admitted for hypertensive urgency and left AMA on 11/27. Patient is blood culture grew VRE and she was called back to the ER. # bacteremia with VRE Continue IV linezolid Repeat blood cultures pending Consulted Infectious Disease discuss the need to remove\preserve PERMACATH # C diff infection resume p.o. vancomycin. Will need long taper # ESRD on hemodialysis MWF, consult Nephrology # Hyperkalemia, acute Given IV calcium gluconate and Lokelma # Uncontrolled blood pressure due to medication noncompliance resume p.o. home antihypertensives and titrate # Seizure disorder Keppra # Polysubstance use disorder: Consulted Addiction Team. Patient on methadone DVT prophylaxis: Heparin Full code Admit as inpatient and will require overnight minimum hospital stay for IV antibiotics pending ID eval, which is not possible in a lesser acute setting. Quality Stroke Does the patient have a stroke diagnosis?: No VTE Prior VTE?: No VTE Risk Level:: Medical - moderate - high VTE Device Contraindication: Treatment Not Indicated VTE Drug Contraindication: N/A - Med Ordered
[2024-11-30] MEDS: NIFEdipine ER 30 MG TAB.ER.24 60 MG PO (15:03)
[2024-11-30] MEDS: Sevelamer Carbonate Tablet 800 MG TABLET PO (15:03)
[2024-11-30] MEDS: methADONE HCl 20 MG/2 ML ORAL.CONC 50 MG PO (15:03)
--- NOTE | 2024-11-30 15:08 | P.EN_ITS ---
Event Note Date of Service: 12/02/24 Event Note: Patient seen by pressing department supervisor, requesting methadone dose increase T/W called and spoke to [facility] OTP Provider Judson Hansen. Discussed concern that patient is inconsistent with dialysis treatments, and risks associated with increasing dose any further knowing this information. [facility] provider requested that dose not be adjusted at this time, and would plan to discuss request with patient next time she is in the clinic. T/W went to inform patient of the above discussion, however she was not in her room and at dialysis. pressing department supervisor had already encouraged patient to discuss dose increases with provider, so patient is aware to do so. Time Spent With Patient Time: Total time managing care of this patient today ____ minutes.
--- NOTE | 2024-11-30 15:08 | PM.EVENT ---
Event Note Date of Service: 12/02/24 Event Note: Patient seen by indirect fire infantryman, requesting methadone dose increase T/W called and spoke to [facility] OTP Provider Judson Hansen. Discussed concern that patient is inconsistent with dialysis treatments, and risks associated with increasing dose any further knowing this information. [facility] provider requested that dose not be adjusted at this time, and would plan to discuss request with patient next time she is in the clinic. T/W went to inform patient of the above discussion, however she was not in her room and at dialysis. indirect fire infantryman had already encouraged patient to discuss dose increases with provider, so patient is aware to do so. Time Spent With Patient Time: Total time managing care of this patient today ____ minutes.
--- NOTE | 2024-11-30 17:59 | P.CONNP_ITS ---
History of Present Illness Reason for Consult Consult date: 11/30/24 Chief Complaint Chief complaint: bacteremia History of Present Illness Narrative: RTANE onsulted for ESRD and Dialysis management In summary a non-colinat ESRD with freq HHosp with recurrent hyoerK, severe HTN, Uemia gets usu HD on mwf at [facility]. On last hosp prior to d/c had Bld cult that came back VRE and PT ontacted and told she needs to back to [facility] for adm and Rx of VRE bacteremia, C/O [place] and markedly incr BP Review of Systems Review of Systems Yes all other systems are reviewed and are negative Constitutional: Reports no additional constitutional complaints, Denies body ache(s), Denies chills, Denies fever(s) and Reports headache(s) Eyes: Denies blurry vision Denies vertigo, Denies dizziness and Reports headache(s) Cardiovascular: Reports no additional cardiovascular complaints, Denies chest pain, Denies chest pain at rest and Denies dyspnea Respiratory: Reports no additional respiratory complaints, Denies cough and Denies dyspnea Gastrointestinal: Reports no additional gastrointestinal complaints, Denies abdominal pain, Denies diarrhea, Denies loose stools, Reports nausea and Reports vomiting Musculoskeletal: Denies back pain Skin/Breast: Denies rash Denies vertigo, Denies dizziness and Reports headache(s) Psychiatric: Reports anxiety PMFSH Past Medical History Medical History Clostridioides difficile diarrhea Traumatic hematoma of left upper arm Seizure Opioid use disorder Hypertension, uncontrolled Anemia due to chronic kidney disease ESRD (end stage renal disease) on dialysis Medical non-compliance Norovirus Anemia HTN (hypertension) Drug abuse ESRD (end stage renal disease) Social History Social History Household Members: Other Household Members Other:: rommmate Housing: Apartment Do you presently have visiting nurse or other home services: Yes ([facility]na for methadone) Alcohol intake: unknown Comment: pt in HD Patient Tobacco Use Status: Former Tobacco user Substance Use Type: Heroin Advance Directives Date on File: 09/25/24 service: No Meds Allergies Allergy/AdvReac Type Severity Reaction Status Date / Time No Known Allergies Allergy Verified 11/29/24 20:42 Active Medications: Current Medications Acetaminophen (Acetaminophen 325 Mg Tablet) 650 mg PO Q6H PRN PRN Reason: Pain, Mild 1-3,fever,headache Last Admin: 11/30/24 08:10 Dose: 650 mg Calcium Carbonate (Calcium Carbonate 750 Mg Tab.Chew) 750 mg PO Q4H PRN PRN Reason: Heartburn Carvedilol (Carvedilol 12.5 Mg Tablet) 12.5 mg PO BID [facility]; Protocol Last Admin: 11/30/24 11:44 Dose: 12.5 mg Heparin Sodium (Porcine) (Heparin Sodium,Porcine 5,000 Unit/Ml Vial) 5,000 unit SUBCUT BID [facility] Last Admin: 11/30/24 08:11 Dose: 5,000 unit Hydralazine HCl (Hydralazine Hcl 50 Mg Tablet) 50 mg PO TID [facility]; Protocol Last Admin: 11/30/24 15:02 Dose: 50 mg Linezolid (Zyvox/D5w) 600 mg in 300 mls @ 300 mls/hr IV Q12H [facility] Last Infusion: 11/30/24 15:09 Dose: Infused Levetiracetam (Levetiracetam 500 Mg Tablet) 500 mg PO BID [facility] Last Admin: 11/30/24 08:10 Dose: 500 mg Magnesium Hydroxide (Milk Of Magnesia 30 Ml Oral.Susp) 30 ml PO DAILY PRN PRN Reason: Constipation Melatonin (Melatonin 3 Mg Tablet) 6 mg PO BEDTIME PRN PRN Reason: Insomnia Methadone HCl (Methadone Hcl 20 Mg/2 Ml Oral.Conc) 50 mg PO DAILY@0800 [facility] Last Admin: 11/30/24 15:03 Dose: 50 mg Nifedipine (Nifedipine Er 30 Mg Tab.Er.24) 60 mg PO DAILY [facility]; Protocol Last Admin: 11/30/24 15:03 Dose: 60 mg Ondansetron HCl (Ondansetron Hcl 4 Mg/2 Ml Vial) 4 mg IVPUSH Q8H PRN PRN Reason: Nausea and Vomiting Last Admin: 11/30/24 01:44 Dose: 4 mg Sevelamer Carbonate (Sevelamer Carbonate Tablet 800 Mg Tablet) 800 mg PO TIDWM [facility] Last Admin: 11/30/24 17:02 Dose: Not Given Sodium Chloride (0.9 % Sodium Chloride Flush 3 Ml Syringe) 3 ml IVFLUSH QSHIFT [facility] Last Admin: 11/30/24 15:03 Dose: 3 ml Sodium Zirconium Cyclosilicate (Sodium Zirconium Cyclosilicate 10 Gm Powd.Pack) 10 gm PO MOWEFR [facility] Last Admin: 11/30/24 13:16 Dose: Not Given Vancomycin HCl (Vancomycin Hcl 125 Mg Capsule) 125 mg PO Q6H [facility] Last Admin: 11/30/24 15:03 Dose: 125 mg Zolpidem Tartrate (Zolpidem Tartrate 5 Mg Tablet) 5 mg PO BEDTIME PRN PRN Reason: Insomnia Last Admin: 11/30/24 04:54 Dose: 5 mg Home Medications ?Medication ?Instructions ?Recorded ?Confirmed ?Last Taken ?Type sevelamer carbonate 800 mg tablet 800 mg PO TIDWM 09/24/24 11/30/24 11/29/24 History sodium zirconium cyclosilicate 10 10 g PO MOWEFR 09/24/24 11/30/24 11/28/24 History gram oral powder packet (Lokelma) Physical Exam Vital Signs: Last Vital Signs Temp 97.7 F 11/30/24 15:32 Pulse 72 11/30/24 15:32 Resp 18 11/30/24 15:32 BP 135/72 11/30/24 15:32 Pulse Ox 94 11/30/24 15:32 O2 Del Method Room Air 11/30/24 15:32 BMI result Body Mass Index 19.6 Const Other: Constitutional : Awake, interactive, not in distress Neck : Normal inspection, Supple Cardiovascular : RRR, no JVP, no lower extremity edema Respiratory : good bilateral air entry, no crackles, wheezes or rhonchi Gastrointestinal: soft, lax, Normal bowel sounds, Non tender Skin : Warm, Dry, bruises , Dialysis cath chest wall clean with no erythema or tenderness Neurological : Alert & oriented x3, No focal deficit General: comfortable, no acute distress, alert and awake Nutritional Appearance: thin and underweight Orientation/consciousness: patient oriented x3 HEENT Head: Yes normocephalic and Yes atraumatic Eyes Eyelids: Yes eyelids normal Conjunctivae: conjunctivae normal Sclerae: sclerae normal Corneas: corneas normal Pupils: Equal, round and reactive pupils present EOM: EOMs intact bilaterally Neck Neck: Yes full ROM Resp Effort & Inspection: normal respiratory effort, able to speak in complete sentences and not labored Cardio Rate: regular rate Rhythm: regular rhythm GI Inspection: No distended Palpation (GI): Soft to palpation, not firm, nontender, no guarding and not rigid Skin General skin exam: elasticity normal Neuro General: patient oriented x3 Cranial nerves: Yes CN's II-XII intact bilaterally, Yes Equal, round and reactive pupils present and Yes Bilaterally intact EOM present Cognition (Neuro): normal cognition Extrem Other: Moving all extremities well without any obvious deformities Results Lab Results 11/30/24 05:34 11/30/24 05:34 Lab results: Chemistry 11/30/24 11/30/24 00:25 05:34 Sodium 139 136 Potassium 5.7 H 5.9 H Carbon Dioxide 31 H 29 BUN 57 H 59 H Creatinine 7.72 H* 7.72 H* Calcium 9.5 D 10.1 D Hematology 11/30/24 11/30/24 00:25 05:34 WBC 8.8 8.3 Hgb 10.7 L 10.4 L Plt Count 254 244 Assessment and Plan (1) Bacteremia due to vancomycin resistant Enterococcus: Status: Acute (2) Clostridioides difficile diarrhea: Status: Acute (3) Acute hyperkalemia: Status: Acute (4) Hypertensive urgency: Status: Acute Plan This is a 49 year old female with pertinent history of ESRD on hemodialysis Thursday/Thursday/Thursday with history of noncompliance, seizure disorder, anemia of chronic kidney disease, polysubstance IV drug use disorder on methadone who was recently admitted for hypertensive urgency and left AMA on 11/27. Patient is blood culture grew VRE and she was called back to the ER. ESRD: usu mwf at [facility]; will plan on HD tody and cont mwf VRE bacteremia: cath assoc infection is likely culprot; ID to see PT and ECHO to look for endocarditis ID consult re: need for Permcath removsal and ABx choice and duration Svere HTN: better now PLAN: HD tday on 1 K bath; ID consult: re Abx choice, need removal of Pcath and card echo Procedures Date of Service Date of Service: 11/30/24
--- NOTE | 2024-12-01 00:18 | W.PM.IDCN ---
History of Present Illness Data of Consult Service Date: 11/30/24 Requesting physician: Orlando Gonzalez Primary Care Provider: None Physician HPI Reason for consult: bacteremia She presents with chills and weakness initially 5/2 and left AMA. One set blood cultures VRE. She has HD and gets M,W,Fri. She still uses IV drugs. Review of Systems Review of Systems: Yes all other systems are reviewed and are negative PMFSH Past Medical History Medical History Clostridioides difficile diarrhea Traumatic hematoma of left upper arm Seizure Opioid use disorder Hypertension, uncontrolled Anemia due to chronic kidney disease ESRD (end stage renal disease) on dialysis Medical non-compliance Norovirus Anemia HTN (hypertension) Drug abuse ESRD (end stage renal disease) Family History Family history: reviewed and not pertinent Social History Social History Household Members: Other [facility] Housing[facility] Apartment Do you presently have visiting nurse or other home services: Yes (vna for methadone) Alcohol intake: unknown Comment: pt in HD Patient Tobacco Use Status: Former Tobacco user Substance Use Type: Heroin Advance Directives Date on File: 09/25/24 service: No Meds Allergies Allergy/AdvReac Type Severity Reaction Status Date / Time No Known Allergies Allergy Verified 11/29/24 20:42 Active Medications: Current Medications Acetaminophen (Acetaminophen 325 Mg Tablet) 650 mg PO Q6H PRN PRN Reason: Pain, Mild 1-3,fever,headache Last Admin: 11/30/24 08:10 Dose: 650 mg Calcium Carbonate (Calcium Carbonate 750 Mg Tab.Chew) 750 mg PO Q4H PRN PRN Reason: Heartburn Carvedilol (Carvedilol 12.5 Mg Tablet) 12.5 mg PO BID [facility]; Protocol Last Admin: 11/30/24 20:48 Dose: 12.5 mg Heparin Sodium (Porcine) (Heparin Sodium,Porcine 5,000 Unit/Ml Vial) 5,000 unit SUBCUT BID [facility] Last Admin: 11/30/24 20:50 Dose: 5,000 unit Hydralazine HCl (Hydralazine Hcl 50 Mg Tablet) 50 mg PO TID [facility]; Protocol Last Admin: 11/30/24 20:49 Dose: 50 mg Linezolid (Zyvox/D5w) 600 mg in 300 mls @ 300 mls/hr IV Q12H [facility] Last Admin: 11/30/24 23:37 Dose: 300 mls/hr Levetiracetam (Levetiracetam 500 Mg Tablet) 500 mg PO BID [facility] Last Admin: 11/30/24 20:49 Dose: 500 mg Magnesium Hydroxide (Milk Of Magnesia 30 Ml Oral.Susp) 30 ml PO DAILY PRN PRN Reason: Constipation Melatonin (Melatonin 3 Mg Tablet) 6 mg PO BEDTIME PRN PRN Reason: Insomnia Methadone HCl (Methadone Hcl 20 Mg/2 Ml Oral.Conc) 50 mg PO DAILY@0800 [facility] Last Admin: 11/30/24 15:03 Dose: 50 mg Nifedipine (Nifedipine Er 30 Mg Tab.Er.24) 60 mg PO DAILY [facility]; Protocol Last Admin: 11/30/24 15:03 Dose: 60 mg Ondansetron HCl (Ondansetron Hcl 4 Mg/2 Ml Vial) 4 mg IVPUSH Q8H PRN PRN Reason: Nausea and Vomiting Last Admin: 11/30/24 01:44 Dose: 4 mg Sevelamer Carbonate (Sevelamer Carbonate Tablet 800 Mg Tablet) 800 mg PO TIDWM [facility] Last Admin: 11/30/24 17:02 Dose: Not Given Sodium Chloride (0.9 % Sodium Chloride Flush 3 Ml Syringe) [facility] Last Admin: 11/30/24 20:52 Dose: 3 ml Sodium Zirconium Cyclosilicate (Sodium Zirconium Cyclosilicate 10 Gm Powd.Pack) [facility] Last Admin: 11/30/24 13:16 Dose: Not Given Vancomycin HCl (Vancomycin Hcl 125 Mg Capsule) 125 mg PO Q6H [facility] Last Admin: 11/30/24 20:15 Dose: 125 mg Zolpidem Tartrate (Zolpidem Tartrate 5 Mg Tablet) 5 mg PO BEDTIME PRN PRN Reason: Insomnia Last Admin: 11/30/24 04:54 Dose: 5 mg Home Medications ?Medication ?Instructions ?Recorded ?Confirmed ?Last Taken ?Type sevelamer carbonate 800 mg tablet 800 mg PO TIDWM 09/24/24 11/30/24 11/29/24 History sodium zirconium cyclosilicate 10 10 g PO MOWEFR 09/24/24 11/30/24 11/28/24 History gram oral powder packet (Lokelma) Physical Exam Vital Signs: Vital Signs: Last Vital Signs Temp 98.7 F 11/30/24 23:36 Pulse 72 11/30/24 23:36 Resp 16 11/30/24 23:36 BP 164/78 H 11/30/24 23:36 Pulse Ox 94 11/30/24 23:36 O2 Del Method Room Air 11/30/24 23:36 BMI result Body Mass Index 19.6 Const: General: cooperative HEENT: Head: Yes normal to inspection Face and sinus: Yes normal facial exam Mouth: Normal oral and palatal mucosa present Teeth and gingiva: dentition normal Eyes: General: appearance normal, both eyes and all related structures Pupils: Equal, round and reactive pupils present Chest: Other: clean chest wall catheter Resp: Effort & Inspection: normal respiratory effort Cardio: Rate: regular rate Rhythm: regular rhythm GI: Palpation (GI): Soft to palpation and nontender : General: Yes no CVA tenderness Back/Spine/Pelvis: Back: no CVA tenderness Skin: General skin exam: no rashes or lesions noted Neuro: General: moves all extremities Cranial nerves: Yes Equal, round and reactive pupils present Extrem: General: Yes normal to inspection Psych: Appearance: grossly normal Results Labs 11/30/24 05:34 11/30/24 05:34 Labs: Short CBC 11/30/24 11/30/24 Range/Units 00:25 05:34 WBC 8.8 8.3 (4.8-10.8) X10*3/uL Hgb 10.7 L 10.4 L (12.0-16.0) g/dl Hct 32.9 L 31.1 L (37.0-47.0) % Plt Count 254 244 (160-400) X10*3/uL BMP 11/30/24 11/30/24 00:25 05:34 Sodium 139 136 Potassium 5.7 H 5.9 H Chloride 89 L 88 L Carbon Dioxide 31 H 29 BUN 57 H 59 H Creatinine 7.72 H* 7.72 H* Calcium 9.5 D 10.1 D Liver Function 11/30/24 Range/Units 00:25 Total Bilirubin 0.6 (0.0-1.0) mg/dL AST 36 H (5-31) U/L ALT 20 (0-31) U/L Alkaline Phosphatase 158 H (39-117) U/L Albumin 4.3 (3.5-5.0) g/dL Assessment and Plan (1) Positive blood culture: Status: Acute (2) Bacteremia due to vancomycin resistant Enterococcus: Status: Acute (3) Clostridioides difficile diarrhea: Status: Acute Plan IV linezolid for now,likely 14 days. If no further bacteremia can leave line in but ideally would change line.
[2024-12-01] MEDS: vancomycin HCL 125 MG CAPSULE PO ×4 (01:01→18:37)
[2024-12-01] MEDS: 0.9 % Sodium Chloride Flush 3 ML SYRINGE IVFLUSH ×3 (01:01→23:29)
[2024-12-01 03:31] VITALS: BP 140/69; PULSE 84; RESP 16; TEMP 36.8; O2SAT 93
--- NOTE | 2024-12-01 04:01 | PC.NURSE ---
pt reported 5/10 pain at beginning of shift, reports tolerating pain. Pt able to sleep throughout the night, meds given per MAR, Respirations even and non-labored, lung sounds clear, BSx4, +flatus, +2 pitting to BLE, nonpitting to B/L hand, pt reports improvement to hand edema. Permacath intact to right chest, IV to LAC. VSS, No apparent distress at this time, call winkler within reach.
[2024-12-01 08:32] VITALS: BP 187/93; PULSE 73; RESP 18; TEMP 36.7; O2SAT 93
[2024-12-01] MEDS: levETIRAcetam 500 MG TABLET PO ×2 (09:20→21:44)
[2024-12-01] MEDS: NIFEdipine ER 30 MG TAB.ER.24 60 MG PO (09:20)
[2024-12-01] MEDS: methADONE HCl 20 MG/2 ML ORAL.CONC 50 MG PO (09:20)
[2024-12-01] MEDS: Sevelamer Carbonate Tablet 800 MG TABLET PO ×3 (09:21→18:36)
[2024-12-01] MEDS: carvediloL 12.5 MG TABLET PO ×2 (09:21→21:44)
[2024-12-01] MEDS: hydrALAZINE HCl 50 MG TABLET PO ×2 (09:21→21:44)
[2024-12-01] MEDS: Heparin Sodium,Porcine 5,000 UNIT/ML VIAL 5000 UNIT SUBCUT ×2 (09:21→21:45)
--- NOTE | 2024-12-01 10:27 | MHC.CM.PN ---
Addendum entered by Nichole Arriaza 12/01/24 14:47: PT IS ACTIVE WITH [facility] FOR MMT, [facility] DELIVERS DAILY PT GOES TO [facility] FOR HD M/W/F PT WILL NEED IV ABX, HOME WITH SERVICES VS SNF Original Note: PT FROM HOME, LEFT AMA ON 11/25 CAME BACK FOR IV ABX L/W ROOMMATE IN APARTMENT INDP W/ CARE USES [facility] FOR METHADONE THROUGH [facility] PT DOES NOT USE DME PT'S HCP- SHARRI BELL, SISTER, PT DOES NOT HAVE PCP PT'S DCP- UBER PINELAND, CONTINUE [facility] W/ FAMILY SUPPORT.
--- NOTE | 2024-12-01 12:11 | P.PNNP_ITS ---
Subjective Subjective Date of Service: 12/01/24 Interval history: Seen and examined, events noted Physical Exam 2 Vital Signs: Vital Signs: Last Vital Signs Temp 98.0 F 12/01/24 08:32 Pulse 73 12/01/24 08:32 Resp 18 12/01/24 08:32 BP 187/93 H 12/01/24 08:32 Pulse Ox 93 12/01/24 08:32 O2 Del Method Room Air 12/01/24 08:32 BMI result Body Mass Index 19.6 Const: Other: Constitutional : Awake, interactive, not in distress Neck : Normal inspection, Supple Cardiovascular : RRR, no JVP, no lower extremity edema Respiratory : good bilateral air entry, no crackles, wheezes or rhonchi Gastrointestinal: soft, lax, Normal bowel sounds, Non tender Skin : Warm, Dry, bruises , Dialysis cath chest wall clean with no erythema or tenderness Neurological : Alert & oriented x3, No focal deficit General: comfortable, no acute distress, alert and awake Nutritional Appearance: thin and underweight Orientation/consciousness: patient oriented x3 HEENT: Head: Yes normocephalic and Yes atraumatic Eyes: Eyelids: Yes eyelids normal Conjunctivae: conjunctivae normal S clerae: sclerae normal Corneas: corneas normal Pupils: Equal, round and reactive pupils present EOM: EOMs intact bilaterally Neck: Neck: Yes full ROM Resp: Effort & Inspection: normal respiratory effort, able to speak in complete sentences and not labored Cardio: Rate: regular rate Rhythm: regular rhythm GI: Inspection: No distended Palpation (GI): Soft to palpation, not firm, nontender, no guarding and not rigid Skin: General skin exam: elasticity normal Neuro: General: patient oriented x3 Cranial nerves: Yes CN's II-XII intact bilaterally, Yes Equal, round and reactive pupils present and Yes Bilaterally intact EOM present Cognition (Neuro): normal cognition Extrem: Other: Moving all extremities well without any obvious deformities Objective Data Labs 11/30/24 05:34 11/30/24 05:34 Microbiology Microbiology Results: Microbiology 11/30/24 00:25 Blood - Venous Blood Culture - Preliminary No growth after 24 hours. 11/30/24 00:19 Blood - Venous Blood Culture - Preliminary No growth after 24 hours. Procedures Date of Service Date of Service: 12/01/24 Assessment & Plan Assessment and plan (1) Bacteremia due to vancomycin resistant Enterococcus: Status: Acute (2) Clostridioides difficile diarrhea: Status: Acute (3) Acute hyperkalemia: Status: Acute (4) Hypertensive urgency: Status: Acute Plan This is a 49 year old female with pertinent history of ESRD on hemodialysis Thursday/Thursday/Thursday with history of noncompliance, seizure disorder, anemia of chronic kidney disease, polysubstance IV drug use disorder on methadone who was recently admitted for hypertensive urgency and left AMA on 11/27. Patient is blood culture grew VRE and she was called back to the ER. ESRD: usu mwf at [facility] HDU; cont mwf VRE bacteremia: cath assoc infection is likely culprot; ID to see PT and ECHO to look for endocarditis ID consult re: need for Permcath removsal and ABx choice and duration Svere HTN: better now PLAN: cont HD mwf; ID consult noted and they are determing ABX choice/duration and if Pcath needs to be removed add clonidine for BP control and may help anxiety draw bldcult off HD cath tomorrow at HD Time Spent With Patient Time: Total time managing care of this patient today ____ minutes. Progress Note: Quality Stroke Does the patient have a stroke diagnosis?: No
[2024-12-01] MEDS: Linezolid/D5W 600 MG/300 ML PIGGYBACK 300 MG IV ×2 (13:02→23:28)
[2024-12-01] MEDS: cloNIDine HCL 0.1 MG TABLET PO ×2 (13:03→21:41)
[2024-12-01 16:10] VITALS: BP 174/84; PULSE 71; RESP 12; TEMP 37.3; O2SAT 94
--- NOTE | 2024-12-01 18:03 | PC.NURSE ---
Pt refusing to take medications until she has had her meals, stating medications make her nauseous. Medications administered late per pt request.
[2024-12-01 19:51] VITALS: BP 149/82; PULSE 74; RESP 12; TEMP 36.9; O2SAT 92
[2024-12-01 21:44] VITALS: BP 173/79; PULSE 71
[2024-12-01 23:35] VITALS: BP 163/71; PULSE 67; RESP 16; TEMP 36; O2SAT 97
[2024-12-02] MEDS: vancomycin HCL 125 MG CAPSULE PO ×3 (00:43→18:11)
[2024-12-02 07:05] VITALS: PULSE 70; RESP 14; TEMP 36.3; O2SAT 95
[2024-12-02] MEDS: Sevelamer Carbonate Tablet 800 MG TABLET PO ×2 (09:49→18:11)
[2024-12-02] MEDS: Heparin Sodium,Porcine 5,000 UNIT/ML VIAL 5000 UNIT SUBCUT ×2 (09:49→20:48)
[2024-12-02] MEDS: carvediloL 12.5 MG TABLET PO ×2 (09:49→20:52)
[2024-12-02] MEDS: hydrALAZINE HCl 50 MG TABLET PO ×3 (09:49→20:52)
[2024-12-02] MEDS: cloNIDine HCL 0.1 MG TABLET PO ×2 (09:49→20:51)
[2024-12-02] MEDS: levETIRAcetam 500 MG TABLET PO ×2 (09:49→20:51)
[2024-12-02] MEDS: NIFEdipine ER 30 MG TAB.ER.24 60 MG PO (09:49)
[2024-12-02] MEDS: methADONE HCl 20 MG/2 ML ORAL.CONC 50 MG PO (09:49)
[2024-12-02] MEDS: 0.9 % Sodium Chloride Flush 3 ML SYRINGE IVFLUSH ×3 (09:57→23:23)
[2024-12-02] MEDS: Linezolid/D5W 600 MG/300 ML PIGGYBACK 300 MG IV ×2 (11:35→23:23)
[2024-12-02 13:46] LABS: MANUAL DIFF FLAG NO
[2024-12-02 13:51] LABS: Basophils Percent Auto 0.5 % (0-2); Eosinophils Absolute Auto 0.2 X10*3/uL (0.0-0.4); Eosinophils Percent Auto 2.8 % (0-4); Hematocrit 27.2 % (37.0-47.0); Hemoglobin 8.6 g/dl (12.0-16.0); Imm Gran Abs Auto 0.02 X10*3/uL (0.00-0.03); Imm Gran Pct Auto 0.3 % (0.0-0.4); Lymphocytes Absolute Auto 1.4 X10*3/uL (1.2-4.9); Lymphocytes Percent Auto 23.5 % (20-40); Mean Corpuscular HGB Conc 31.6 g/dl (31.0-35.0); Mean Corpuscular Hemoglobin 29.9 pg (27.0-33.0); Mean Corpuscular Volume 94.4 fL (80.0-98.0); Mean Platelet Volume 10.5 fL (9.4-12.3); Monocytes Absolute Auto 0.7 X10*3/uL (0.1-1.2); Monocytes Percent Auto 11.3 % (2-11); Neutrophils Absolute Auto 3.8 x10*3/uL (2.0-8.3); Neutrophils Percent Auto 61.6 % (45-73); Platelet Count 261 X10*3/uL (160-400); Red Blood Count 2.88 X10*6/uL (4.20-5.50); Red Cell Distribution Width 14.1 % (11.0-16.0); White Blood Count 6.1 X10*3/uL (4.8-10.8)
[2024-12-02 14:09] LABS: Anion Gap 17 (12-20); Blood Urea Nitrogen 46 mg/dL (9-16); Calcium 8.5 mg/dL (8.4-10.2); Carbon Dioxide 28 mmol/L (22-29); Chloride 90 mmol/L (96-108); Creatinine Clr Calc Pharmacy 7.1; Estimated Glomerular Filt Rate 6; Glucose Random 115 mg/dL (60-115); Potassium 4.9 mmol/L (3.3-5.1); Sodium 130 mmol/L (135-145)
--- NOTE | 2024-12-02 15:17 | P.PNIM_ITS ---
Subjective Subjective Date of Service: 12/02/24 Interval History: No acute issues overnight. Remains afebrile Review of Systems Denies chest pain Denies shortness of breath Denies nausea vomiting diarrhea Denies fever chills Physical Exam 2 Vital Signs: Vital Signs: Last Vital Signs Temp 97.4 F 12/02/24 07:05 Pulse 70 12/02/24 07:05 Resp 14 12/02/24 07:05 BP 163/71 H 12/01/24 23:35 Pulse Ox 95 12/02/24 07:05 O2 Del Method Room Air 12/02/24 07:05 BMI result Body Mass Index 19.6 Const: Other: Awake alert no acute distress Resp: Other: Clear to auscultation bilaterally no rales rhonchi or wheezes Cardio: Other: No S4; positive S1-S2; no S3 murmurs rubs or gallops GI: Other: Soft nontender nondistended normoactive bowel sounds Extrem: Other: No edema bilaterally Objective Data Active Medications Acetaminophen (Acetaminophen 325 Mg Tablet) 650 mg PO Q6H PRN PRN Reason: Pain, Mild 1-3,fever,headache Last Admin: 11/30/24 08:10 Dose: 650 mg Documented By: CARLOS Calcium Carbonate (Calcium Carbonate 750 Mg Tab.Chew) 750 mg PO Q4H PRN PRN Reason: Heartburn Carvedilol (Carvedilol 12.5 Mg Tablet) 12.5 mg PO BID [facility]; Protocol Last Admin: 12/02/24 09:49 Dose: 12.5 mg Documented By: FLORENCIA Clonidine HCl (Clonidine Hcl 0.1 Mg Tablet) 0.1 mg PO BID [facility] Last Admin: 12/02/24 09:49 Dose: 0.1 mg Documented By: FLORENCIA Heparin Sodium (Porcine) (Heparin Sodium,Porcine 5,000 Unit/Ml Vial) 5,000 unit SUBCUT BID [facility] Last Admin: 12/02/24 09:49 Dose: 5,000 unit Documented By: FLORENCIA Hydralazine HCl (Hydralazine Hcl 50 Mg Tablet) 50 mg PO TID [facility]; Protocol Last Admin: 12/02/24 09:49 Dose: 50 mg Documented By: FLORENCIA Linezolid (Zyvox/D5w) 600 mg in 300 mls @ 300 mls/hr IV Q12H [facility] Last Infusion: 12/02/24 13:14 Dose: Infused Documented By: FLORENCIA Levetiracetam (Levetiracetam 500 Mg Tablet) 500 mg PO BID [facility] Last Admin: 12/02/24 09:49 Dose: 500 mg Documented By: FLORENCIA Magnesium Hydroxide (Milk Of Magnesia 30 Ml Oral.Susp) 30 ml PO DAILY PRN PRN Reason: Constipation Melatonin (Melatonin 3 Mg Tablet) 6 mg PO BEDTIME PRN PRN Reason: Insomnia Methadone HCl (Methadone Hcl 20 Mg/2 Ml Oral.Conc) 50 mg PO DAILY@0800 [facility] Last Admin: 12/02/24 09:49 Dose: 50 mg Documented By: FLORENCIA Co-signed By: NING Nifedipine (Nifedipine Er 30 Mg Tab.Er.24) 60 mg PO DAILY [facility]; Protocol Last Admin: 12/02/24 09:49 Dose: 60 mg Documented By: FLORENCIA Ondansetron HCl (Ondansetron Hcl 4 Mg/2 Ml Vial) 4 mg IVPUSH Q8H PRN PRN Reason: Nausea and Vomiting Last Admin: 11/30/24 01:44 Dose: 4 mg Documented By: MARILYN Sevelamer Carbonate (Sevelamer Carbonate Tablet 800 Mg Tablet) 800 mg PO TIDWM [facility] Last Admin: 12/02/24 11:51 Dose: Not Given Documented By: FLORENCIA Non-Admin Reason: Patient Refused Sodium Chloride (0.9 % Sodium Chloride Flush 3 Ml Syringe) 3 ml IVFLUSH QSHIFT [facility] Last Admin: 12/02/24 09:57 Dose: 3 ml Documented By: FLORENCIA Sodium Zirconium Cyclosilicate (Sodium Zirconium Cyclosilicate 10 Gm Powd.Pack) 10 gm PO MOWEFR [facility] Last Admin: 12/02/24 11:30 Dose: Not Given Documented By: FLORENCIA Non-Admin Reason: Patient Refused Vancomycin HCl (Vancomycin Hcl 125 Mg Capsule) 125 mg PO Q6H [facility] Last Admin: 12/02/24 13:16 Dose: Not Given Documented By: FLORENCIA Non-Admin Reason: Off unit: Dialysis Zolpidem Tartrate (Zolpidem Tartrate 5 Mg Tablet) 5 mg PO BEDTIME PRN PRN Reason: Insomnia Last Admin: 11/30/24 04:54 Dose: 5 mg Documented By: SARAH Labs 12/02/24 13:04 12/02/24 13:04 Labs: Laboratory Results - last 24 hr 12/02/24 13:04 MCV 94.4 MCH 29.9 MCHC 31.6 RDW 14.1 Plt Count 261 MPV 10.5 Immature Gran % (Auto) 0.3 Neut % (Auto) 61.6 Lymph % (Auto) 23.5 [place] % (Auto) 11.3 H Eos % (Auto) 2.8 Baso % (Auto) 0.5 Lymph # (Auto) 1.4 [place] # (Auto) 0.7 Eos # (Auto) 0.2 Baso # (Auto) 0.0 Abs Immat Gran (auto) 0.02 Absolute Neuts (auto) 3.8 Absolute Nucleated RBC 0.000 Nucleated RBC % (auto) 0.0 Anion Gap 17 Estim Creat Clear Calc 7.1 Estimated GFR 6 Random Glucose 115 Calcium 8.5 D Microbiology Microbiology Results: Microbiology 11/30/24 00:25 Blood Culture - Preliminary Blood - Venous No growth after 48 hours. 11/30/24 00:19 Blood Culture - Preliminary Blood - Venous No growth after 48 hours. Assessment and Plan (1) Bacteremia due to vancomycin resistant Enterococcus: Status: Acute Plan This is a 49 year old female with pertinent history of ESRD on hemodialysis Thursday/Thursday/Thursday with history of noncompliance, seizure disorder, anemia of chronic kidney disease, polysubstance IV drug use disorder on methadone who was recently admitted for hypertensive urgency and left AMA on 11/27. Patient is blood culture grew VRE and she was called back to the ER. 1.Bacteremia with VRE -Continue IV linezolid -Repeat blood cultures pending -discuss the need to remove\preserve PERMACATH 2.C diff infection -resume p.o. vancomycin. -protracted taper 3.ESRD on hemodialysis -MWF, as per Nephrology 4. Hypertension -improved control with resumption of therapies -adjust as indicated 5.Seizure disorder -stable and well compromise 6.Polysubstance use disorder: -methadone as ordered Heparin Full code Admit as inpatient and will require overnight minimum hospital stay for IV antibiotics pending ID radha which is not possible in a lesser acute setting. Quality Stroke Does the patient have a stroke diagnosis?: No VTE Prior VTE?: No VTE Risk Level:: Medical - moderate - high VTE Device Contraindication: Treatment Not Indicated VTE Drug Contraindication: N/A - Med Ordered
--- NOTE | 2024-12-02 15:31 | MHC.CM.PN ---
per domonique pt not medically ready for dc dc plan remaions home
[2024-12-02 16:00] VITALS: BP 178/89; PULSE 67; RESP 16; TEMP 36.7; O2SAT 94
--- NOTE | 2024-12-02 18:23 | PM.PNNEP ---
Subjective Subjective Date of Service: 12/02/24 Interval history: No acute issues overnight. Remains afebrile Physical Exam Vital Signs: Vital Signs: Last Vital Signs Temp 98.1 F 12/02/24 16:00 Pulse 67 12/02/24 16:00 Resp 16 12/02/24 16:00 BP 178/89 H 12/02/24 16:00 Pulse Ox 94 12/02/24 16:00 O2 Del Method Room Air 12/02/24 16:00 BMI result Body Mass Index 19.6 Const: Other: Constitutional : Awake, interactive, not in distress Neck : Normal inspection, Supple Cardiovascular : RRR, no JVP, no lower extremity edema Respiratory : good bilateral air entry, no crackles, wheezes or rhonchi Gastrointestinal: soft, lax, Normal bowel sounds, Non tender Skin : Warm, Dry, bruises , Dialysis cath chest wall clean with no erythema or tenderness Neurological : Alert & oriented x3, No focal deficit General: comfortable, no acute distress, alert and awake Nutritional Appearance: thin and underweight Orientation/consciousness: patient oriented x3 HEENT: Head: Yes normocephalic and Yes atraumatic Eyes: Eyelids: Yes eyelids normal Conjunctivae: conjunctivae normal Sclerae: sclerae normal Corneas: corneas normal Pupils: Equal, round and reactive pupils present EOM: EOMs intact bilaterally Neck: Neck: Yes full ROM Resp: Effort & Inspection: normal respiratory effort, able to speak in complete sentences and not labored Cardio: Rate: regular rate Rhythm: regular rhythm GI: Inspection: No distended Palpation (GI): Soft to palpation, not firm, nontender, no guarding and not rigid Skin: General skin exam: elasticity normal Neuro: General: patient oriented x3 Cranial nerves: Yes CN's II-XII intact bilaterally, Yes Equal, round and reactive pupils present and Yes Bilaterally intact EOM present Cognition (Neuro): normal cognition Extrem: Other: Moving all extremities well without any obvious deformities Objective Data Labs 12/02/24 13:04 12/02/24 13:04 Labs: Laboratory Results - last 24 hr 12/02/24 13:04 WBC 6.1 RBC 2.88 L Hgb 8.6 L Hct 27.2 L MCV 94.4 MCH 29.9 MCHC 31.6 RDW 14.1 Plt Count 261 MPV 10.5 Immature Gran % (Auto) 0.3 Neut % (Auto) 61.6 Lymph % (Auto) 23.5 [place] % (Auto) 11.3 H Eos % (Auto) 2.8 Baso % (Auto) 0.5 Lymph # (Auto) 1.4 [place] # (Auto) 0.7 Eos # (Auto) 0.2 Baso # (Auto) 0.0 Abs Immat Gran (auto) 0.02 Absolute Neuts (auto) 3.8 Absolute Nucleated RBC 0.000 Nucleated RBC % (auto) 0.0 Sodium 130 L Potassium 4.9 Chloride 90 L Carbon Dioxide 28 Anion Gap 17 BUN 46 H Creatinine 7.28 H* Estim Creat Clear Calc 7.1 Estimated GFR 6 Random Glucose 115 Calcium 8.5 D Microbiology Microbiology Results: Microbiology 11/30/24 00:25 Blood - Venous Blood Culture - Preliminary No growth after 48 hours. 11/30/24 00:19 Blood - Venous Blood Culture - Preliminary No growth after 48 hours. Procedures Date of Service Date of Service: 12/02/24 Assessment & Plan Assessment and plan (1) Bacteremia due to vancomycin resistant Enterococcus: Status: Acute (2) Clostridioides difficile diarrhea: Status: Acute (3) Acute hyperkalemia: Status: Acute (4) Hypertensive urgency: Status: Acute Plan This is a 49 year old female with pertinent history of ESRD on hemodialysis Thursday/Thursday/Thursday with history of noncompliance, seizure disorder, anemia of chronic kidney disease, polysubstance IV drug use disorder on methadone who was recently admitted for hypertensive urgency and left AMA on 11/27. Patient is blood culture grew VRE and she was called back to the ER. ESRD: usu mwf at [facility] HDU; cont mwf VRE bacteremia: cath assoc infection is likely culprit Svere HTN: better now PLAN: cont HD mwf; ID consult noted and they are determing ABX choice/duration and if Pcath needs to be removed cont clonidine for BP control and may help anxiety draw bldcult off HD cath today at HD Time Spent With Patient Time: Total time managing care of this patient today ____ minutes. Progress Note: Quality Stroke Does the patient have a stroke diagnosis?: No
[2024-12-02 20:00] VITALS: BP 200/93; PULSE 74; RESP 18; TEMP 37.4; O2SAT 96
[2024-12-02 20:51] VITALS: BP 200/93
[2024-12-02 20:52] VITALS: BP 200/93; PULSE 74
[2024-12-02 23:32] VITALS: BP 165/77; PULSE 64
[2024-12-03] MEDS: vancomycin HCL 125 MG CAPSULE PO ×2 (00:41→08:46)
[2024-12-03 08:00] VITALS: BP 180/101; PULSE 70; RESP 15; TEMP 36.6; O2SAT 96
[2024-12-03] MEDS: methADONE HCl 20 MG/2 ML ORAL.CONC 50 MG PO (08:45)
[2024-12-03] MEDS: NIFEdipine ER 30 MG TAB.ER.24 60 MG PO (08:46)
[2024-12-03] MEDS: Sevelamer Carbonate Tablet 800 MG TABLET PO (08:46)
[2024-12-03] MEDS: hydrALAZINE HCl 50 MG TABLET PO (08:46)
[2024-12-03] MEDS: carvediloL 12.5 MG TABLET PO (08:46)
[2024-12-03] MEDS: levETIRAcetam 500 MG TABLET PO (08:46)
[2024-12-03] MEDS: Heparin Sodium,Porcine 5,000 UNIT/ML VIAL 5000 UNIT SUBCUT (08:46)
[2024-12-03] MEDS: cloNIDine HCL 0.1 MG TABLET PO (08:47)
[2024-12-03] MEDS: 0.9 % Sodium Chloride Flush 3 ML SYRINGE IVFLUSH (08:47)
[2024-12-03 10:19] VITALS: BP 181/101
[2024-12-03] MEDS: hydrALAZINE HCl 25 MG TABLET 75 MG PO (10:33)
[2024-12-03] MEDS: Acetaminophen 325 MG TABLET 650 MG PO (10:33)
[2024-12-03] MEDS: Linezolid/D5W 600 MG/300 ML PIGGYBACK 300 MG IV (10:34)
--- NOTE | 2024-12-03 11:12 | P.DS_ITS ---
DS: Providers Provider Date of Service: 12/03/24 Date of admission: 11/29/24 23:49 Date of discharge: 12/03/24 Primary care physician: None Physician Consults: 11/30/24 00:49 Consult to Infectious Diseases Routine Consulting Provider: [facility] Reason for consultation: VRE bacteremia 11/30/24 01:16 Addiction Medicine Provider Routine Consulting Provider: Addiction [facility] Reason for consultation: Polysubstance use disorder on methadone 11/30/24 07:33 Consult to Nephrology Routine Consulting Provider: [facility] Reason for consultation: esrd 12/02/24 09:53 Inpt - Recovery Team Routine Comment: Reason for consultation: ARETHA eval DS: Diagnosis Discharge Diagnosis (1) Bacteremia due to vancomycin resistant Enterococcus: Status: Acute (2) Clostridioides difficile diarrhea: Status: Acute (3) Acute hyperkalemia: Status: Acute (4) Hypertensive urgency: Status: Acute DS: Summary Hospital Course Hospital Course: 49 year old female with pertinent history of ESRD on hemodialysis Thursday//Thursday with history of noncompliance, seizure disorder, anemia of chronic kidney disease, polysubstance IV drug use disorder on methadone who was recently admitted for hypertensive urgency and left AMA on 11/27. Patient's blood culture grew VRE and she was called back to the ER. Patient initially refused to come back to the hospital but patient's family convinced her to go to the hospital. She endorses using IV drugs after she left AMA. Patient states she will stay in the hospital this time. Does complain of nausea. No fever, chills, chest pain, palpitations, shortness of breath, abdominal pain, changes in urinary or bowel habits. Patient states she took her p.o. antihypertensives and Keppra after leaving AMA but did not take p.o. vancomycin for C diff. Hospital course Admitted to general medical floor and started on linezolid and q.i.d. oral vancomycin. Over the course of the next 48 hours she remained afebrile however no source for VRE. ID was consulted who discussed with Renal. At this point in time repeat cultures were drawn off the hemodialysis catheter ... Results pending at this time. Patient continued on IV linezolid however the day of discharge she wished to go either AMA or by our manjeet's secondary to upcoming mother's day. Case was discussed with ID; patient will be given linezolid 600 mg b.i.d. for 28 days and will continue vancomycin p.o. q.i.d. for the same. She will follow up with Nephrology for hemodialysis as per outpatient schedule. Cultures will be followed up by Nephrology and ID Time Attestation Discharge Coordination Time (in mins): 35 Quality: Safe Use of Opioids Does Pt have an Active Cancer Diagnosis on the Problem List?: No Quality: Stroke Does the patient have a stroke diagnosis?: No Physical Exam Vital Signs: Vital Signs: Last Vital Signs Temp 98 F 12/03/24 08:00 Pulse 70 12/03/24 08:00 Resp 15 12/03/24 08:00 BP 181/101 H 12/03/24 10:19 Pulse Ox 96 12/03/24 08:00 O2 Del Method Room Air 12/03/24 08:00 BMI result Body Mass Index 19.6 Const: Other: Awake alert no acute distress Resp: Other: Clear to auscultation bilaterally no rales rhonchi or wheezes Cardio: Other: No S4; positive S1-S2; no S3 murmurs rubs or gallops GI: Other: Soft nontender nondistended normoactive bowel sounds Extrem: Other: No edema bilaterally DS: Data Data Completed and Pending Completed studies during hospitalization [Text1]: Procedures Insertion of Endotracheal Airway into Trachea, Via Natural or Artificial Opening (09/24/24) Insertion of Infusion Device into Upper Vein, Percutaneous Approach (11/15/24) Performance of Urinary Filtration, Intermittent, Less than 6 Hours Per Day (11/25/24) Respiratory Ventilation, 24-96 Consecutive Hours (09/24/24) Transfusion of Nonautologous Red Blood Cells into Peripheral Vein, Percutaneous Approach (10/25/24) Labs on day of discharge: Laboratory Results - last 24 hr 12/02/24 13:04 WBC 6.1 RBC 2.88 L Hgb 8.6 L Hct 27.2 L MCV 94.4 MCH 29.9 MCHC 31.6 RDW 14.1 Plt Count 261 MPV 10.5 Immature Gran % (Auto) 0.3 Neut % (Auto) 61.6 Lymph % (Auto) 23.5 [place] % (Auto) 11.3 H Eos % (Auto) 2.8 Baso % (Auto) 0.5 Lymph # (Auto) 1.4 [place] # (Auto) 0.7 Eos # (Auto) 0.2 Baso # (Auto) 0.0 Abs Immat Gran (auto) 0.02 Absolute Neuts (auto) 3.8 Absolute Nucleated RBC 0.000 Nucleated RBC % (auto) 0.0 Sodium 130 L Potassium 4.9 Chloride 90 L Carbon Dioxide 28 Anion Gap 17 BUN 46 H Creatinine 7.28 H* Estim Creat Clear Calc 7.1 Estimated GFR 6 Random Glucose 115 Calcium 8.5 D Preliminary micro results at discharge 11/30/24 00:25 Blood Culture - Preliminary Blood - Venous No growth after 48 hours. 11/30/24 00:19 Blood Culture - Preliminary Blood - Venous No growth after 48 hours. Discharge Plan Discharge Anticipated Discharge Date/Time: 12/03/24 11:07 Patient Disposition: Home, Self-Care Discharge Diagnosis: VRE bacteremia Referrals: [facility] [Other] - 1 Day (F/U via [facility] for ongoing methadone dosing.) [facility] [Other] - 1 Day (Continue to work with [facility] to manage MOUD) Physician,None [Primary Care Provider] - 1 Week Discharge Medications: New clonidine HCl 0.1 mg Tablet 0.1 mg PO BID Qty: 60 0RF hydralazine 25 mg Tablet 75 mg PO TID Qty: 180 0RF Protocol: Hold for SBP< HOLD for SBP < : 90 vancomycin 125 mg Capsule 125 mg PO Q6H Qty: 120 1RF linezolid 600 mg tablet 600 mg PO Q12H 28 Days Qty: 56 0RF Continued sevelamer carbonate 800 mg tablet 800 mg PO TIDWM Lokelma 10 gram powder in packet 10 g PO MOWEFR carvedilol 12.5 mg Tablet 12.5 mg PO BID Qty: 60 1RF Protocol: Hold for SBP/HR < HOLD for SBP < : 90 HOLD for HR < : 60 methadone [Methadose] 10 mg/mL Concentrate 50 mg PO DAILY@0800 30 Days Qty: 30 0RF Rx Instructions: Partial Fill upon patient request. levetiracetam [Keppra] 500 mg tablet 500 mg PO BID Qty: 60 3RF nifedipine 30 mg Tablet Extended Release 24hr 60 mg PO DAILY Qty: 90 0RF Protocol: Hold for SBP< HOLD for SBP < : 90 Discontinued doxycycline hyclate 100 mg tablet 100 mg PO BID Qty: 20 0RF hydralazine 50 mg Tablet 50 mg PO TID Qty: 270 0RF Protocol: Hold for SBP< HOLD for SBP < : 90 Discharge Orders: Discharge Order (Routine); Ordered 12/03/24 Ordered By: Norbert Valdez Diet: Advance to usual diet Activity on Discharge: As tolerated Stand Alone Forms: Patient Portal Discharge page Print Language: Danish Care Plan Goals: Hydralazine has been increased to 75 mg twice daily. Clonidine 0.1 mg twice daily has been added to your regimen. Continue vancomycin 4 times a day while on linezolid. Complete course of linezolid twice daily for 28 days. Health Concerns: Continue your hemodialysis schedule as prior to hospitalization. Plan of Treatment: Follow up with PCP/Nephrology next available Assessment: See discharge summary
[2024-12-03 11:42] VITALS: BP 180/90; PULSE 68; RESP 16; TEMP 36.6
== END 2024-12-03 12:05 | disposition home or self-care (01) | DRG 721 ==
LOC: HO.ED 23:29 → HO.EDOVER 11-30 00:48 → HO.S3 11-30 07:27
PROVIDERS: Physician Assistant; Student in an Organized Health Care Education/Training Program; Admitting Provider Student in an Organized Health Care Education/Training Program; Emergency Provider Internal Medicine; Visit Provider Hospitalist
DX: T80.211A Bloodstream infection due to central venous catheter, initial encounter (principal); I12.0 Hypertensive chronic kidney disease with stage 5 chronic kidney disease or end stage renal disease; R78.81 Bacteremia; A04.72 Enterocolitis due to Clostridium difficile, not specified as recurrent; D63.1 Anemia in chronic kidney disease; N18.6 End stage renal disease; E87.5 Hyperkalemia; G40.909 Epilepsy, unspecified, not intractable, without status epilepticus; B95.2 Enterococcus as the cause of diseases classified elsewhere; Z16.21 Resistance to vancomycin; F11.20 Opioid dependence, uncomplicated; F19.90 Other psychoactive substance use, unspecified, uncomplicated; Z99.2 Dependence on renal dialysis; Z91.158 Patient's noncompliance with renal dialysis for other reason; Z87.891 Personal history of nicotine dependence; Z79.899 Other long term (current) drug therapy
CPT/HCPCS: 36415; 80048; 80053; 83605; 85025; 87040; 90999; 99285; J0360; J0613; J1644; J1920; J2020; J2405; J2765; J3360; S9485

== ENCOUNTER → 2024-11-29 23:49 | Outpatient (BNV) | payer MEDICAID, SELFPAY | PROVIDERS: Admitting Provider Student in an Organized Health Care Education/Training Program; Emergency Provider Internal Medicine; Visit Provider Student in an Organized Health Care Education/Training Program | DX: R78.81 Bacteremia (principal); B95.2 Enterococcus as the cause of diseases classified elsewhere; Z16.21 Resistance to vancomycin; A04.72 Enterocolitis due to Clostridium difficile, not specified as recurrent; E87.5 Hyperkalemia; I16.0 Hypertensive urgency | CPT/HCPCS: 99222; 99499 ==

== ENCOUNTER → 2024-11-29 23:49 | Outpatient (BNV) | payer OTHER, SELFPAY | PROVIDERS: Admitting Provider Student in an Organized Health Care Education/Training Program; Emergency Provider Internal Medicine; Visit Provider Nurse Practitioner Psychiatric/Mental Health | DX: F19.11 Other psychoactive substance abuse, in remission (principal) | CPT/HCPCS: 99499 ==

== ENCOUNTER → 2024-11-29 23:49 | Outpatient (BNV) | payer MEDICAID, SELFPAY | PROVIDERS: Admitting Provider Student in an Organized Health Care Education/Training Program; Emergency Provider Internal Medicine; Visit Provider Internal Medicine | DX: R78.81 Bacteremia (principal); B95.2 Enterococcus as the cause of diseases classified elsewhere; Z16.21 Resistance to vancomycin; A04.72 Enterocolitis due to Clostridium difficile, not specified as recurrent | CPT/HCPCS: 99222 ==

== ENCOUNTER 2024-12-18 04:34 | Inpatient (IN) | payer MEDICAID, OTHER, SELFPAY ==
[2024-12-18] VITALS (41 sets, daily range): BP systolic 87–240; BP diastolic 62–160; PULSE 65–100; RESP 14–26; TEMP 32–37.5; O2SAT 90–100; BMI 20.4
--- NOTE | 2024-12-18 | ECG_ITS ---
Test Reason : SEIZURE Blood Pressure : */* mmHG Vent. Rate : 85 BPM Atrial Rate : 85 BPM P-R Int : 130 ms QRS Dur : 68 ms QT Int : 402 ms P-R-T Axes : 67 -45 16 degrees QTcB Int : 478 ms Normal sinus rhythm Left atrial enlargement Left axis deviation Nonspecific ST abnormality Abnormal ECG When compared with ECG of 25-Nov-2024 08:56, No significant change was found Referred By: Generic ED Physician Electronically Signed By: Tom Hansen
--- NOTE | ~2024-12-18 | CT_ITS ---
CLINICAL HISTORY: fall CT cervical spine without contrast Comparison: CT/SR - CT CERVICAL SPINE WO IV CON - 12/18/24 05:38 EDT Findings: The visualized portions of the bilateral lung apices appear clear. There is multifocal dental disease. Normal vertebral body alignment. No acute fractures or dislocations. Mild degenerative endplate changes are present at the cervical spine. Impression: 1. No acute fracture or dislocation injury identified at the cervical spine. This document has been electronically signed by: Judson Ward MD on 12/30/2024 03:26:37
--- NOTE | ~2024-12-18 | CT_ITS ---
CLINICAL HISTORY: Subcutaneous emphysema post intubation CT chest without IV contrast. COMPARISON: XR chest dated 12/18/24 at 07:58 EDT FINDINGS: Multiple scattered pockets of gas present along the anterior aspect of the neck extending from the level of the thyroid gland to the thoracic inlet. Endotracheal tube appropriately seated within the trachea with tip terminating 2.6 cm above the yaron. Enteric tube extends into the abdomen with tip outside the field of view. Right IJ central venous line tip terminates at cavoatrial junction. Left IJ central venous line tip terminates in the distal SVC. Diffuse body wall anasarca. No supraclavicular axillary lymphadenopathy. Trachea and central airways are clear. Coronary artery calcifications present within the LAD. No pericardial effusion. Calcified right hilar lymph nodes. Small left pleural effusion. There is minimal atelectasis along the posterior lower lobes. Minimal tree-in-bud nodularity present within the right middle lobe and to a lesser degree of the right lower lobe. Secretions present within the trachea and mainstem bronchi. No significant bronchial wall thickening. No bronchiectasis. Visualized portions of the upper abdomen are unremarkable. Superior endplate compression fractures of the T12 and L1 vertebral bodies with approximately 10 percent height loss. These are new since imaging performed 09/24/2024. No surrounding soft tissue edema. IMPRESSION: 1. Scattered pockets of subcutaneous gas present along the visualized anterior neck to the level of the thoracic inlet. No cause for this identified. Endotracheal tube is appropriately seated within the trachea. 2. Small left pleural effusion. Body wall anasarca. 3. Scattered pockets of tree-in-bud nodularity within the right middle lobe and to a lesser degree of the right lower lobe can be associated with aspiration pneumonitis or pneumonia. 4. Age-indeterminate superior endplate compression fractures of the T12 and L1 vertebral bodies. No surrounding soft tissue edema. Of note these are new since imaging dated 09/24/2024. This document has been electronically signed by: Darian Fernandez MD on 12/18/2024 15:04:39
--- NOTE | ~2024-12-18 | CT_ITS ---
CLINICAL HISTORY: fall CT abdomen and pelvis without contrast Comparison: CT/SR - CT CHEST WO IV CON - 12/18/24 13:[address]/SR - CT ABDOMEN PELVIS WO IV CON - 09/24/24 10:36 EST Findings: No consolidation or effusion. The gallbladder and solid organs are within normal limits. Vascular calcifications are identified near the renal haja bilaterally. Nonobstructing right renal calculus present. No hydronephrosis. No bowel obstruction, pneumoperitoneum, or pneumatosis. Moderate distention of the stomach with fluid and debris. Limited evaluation of the distal colon and rectum related to bowel underdistention at these sites. Pelvic contents unremarkable. The bladder is minimally distended with fluid, limiting its evaluation. Nondilated appendix. Mild compression deformities are identified at the superior T12 and L1 vertebral body endplates. Similar findings were present on the 12/18/2024 examination. There is cortical buckling at the anterior aspect of the S3 vertebral body. There is diffuse body wall edema. IMPRESSION: 1. Cortical buckling present at the anterior aspect of the S3 vertebral body, consistent with an age-indeterminate fracture. Clinical correlation is advised. No other CT evidence for an acute traumatic injury of the abdomen or pelvis identified. 2. Diffuse body wall edema, consistent with generalized third spacing of fluid. 3. Nonobstructing right renal calculus. No hydronephrosis. This document has been electronically signed by: Judson Ward MD on 12/30/2024 03:56:31
--- NOTE | ~2024-12-18 | XR_ITS ---
CLINICAL HISTORY: central line placement 1 view chest x-ray Comparison: 12/18/2024, 6:08 a. M. Findings: Portions of the exam are obscured by overlying material. Left IJ central line tip is possibly in the SVC. Endotracheal tube tip is 7 cm above the yaron. The exam is otherwise unchanged. IMPRESSION: 1. No significant change post intubation and placement of central line. This document has been electronically signed by: Wes Vazquez MD on 12/18/2024 08:13:24
--- NOTE | ~2024-12-18 | CT_ITS ---
CLINICAL HISTORY: Seizure, fall, rule out fracture CT cervical spine without contrast Comparison: 09/24/2024 Findings: There is motion artifact on several slices. Vertebral alignment is within normal limits. No significant degenerative change. No acute fractures or dislocations. No acute findings on limited view of the intracranial contents. No cervical fluid collections or masses. No consolidation or effusion at the lung apices. IMPRESSION: No acute findings. This document has been electronically signed by: Wes Vazquez MD on 12/18/2024 06:50:35
--- NOTE | ~2024-12-18 | XR_ITS ---
CLINICAL HISTORY: fever 1 view chest x-ray Comparison: CT/SR - CT CHEST WO IV CON - 12/18/24 13:04 EDT CR - XR CHEST 1V - 12/18/24 07:58 EDT Findings: No consolidation, large effusion or pneumothorax. Right IJ dialysis catheter tip is in the right atrium. Normal heart size. No acute fracture. IMPRESSION: 1. No acute findings. This document has been electronically signed by: Mayte Hartley MD on 01/08/2025 17:59:46
--- NOTE | ~2024-12-18 | XR_ITS ---
EXAMINATION: XR CHEST CLINICAL INFORMATION: fever, hypoxia COMPARISON: 01/08/2025. TECHNIQUE: Frontal view of the chest was obtained. FINDINGS: The patient is right rotated. Right IJ central venous catheter again noted in place, tip in the right atrium. The cardiac, hilar, and mediastinal contours are normal. The lungs are clear bilaterally. No pneumothorax or effusion. No focal osseous or soft tissue abnormality. XR/XR chest 1V IMPRESSION: 1. No active pulmonary disease. 2. Right central venous catheter remains in good position. Electronically signed by: Vipul Davison MD 01/09/2025 12:31 PM EDT
--- NOTE | ~2024-12-18 | CT_ITS ---
CLINICAL HISTORY: subcutaneous emphesyma post intubation on US --- Additional Notes or Special Instru ctions: pocus shows subQ neck air, concern for laryngo tracheal CT soft tissue neck without contrast Comparison: CT/SR - CT CERVICAL SPINE WO IV CON - 12/18/24 05:38 EDT Findings: Left neck subcutaneous emphysema which extends across the midline to the right at the level of the thyroid cartilage. No other evidence of pneumomediastinum or pneumothorax within the partially imaged upper chest. An endotracheal tube terminates approximately 2.5 cm above the yaron, which is slightly outside of the field of view. Small amount of linear mucus at the distal aspect of the endotracheal tube. An enteric tube courses inferiorly into the esophagus with the tip outside of the field of view. The tips of the right and left central lines are outside of the field of view. No focal consolidation within the lung apices. Bilateral carotid siphon calcifications. Paranasal sinus mucosal thickening. The mastoid air cells are clear. Unremarkable thyroid gland. IMPRESSION: Neck subcutaneous emphysema which is likely related to airway injury given the history of intubation. The location of the injury is not definitely identified. No evidence of intrathoracic pneumomediastinum or pneumothorax. This document has been electronically signed by: Naeem Monroy DO on 12/18/2024 11:10:07
--- NOTE | ~2024-12-18 | XR_ITS ---
CLINICAL HISTORY: Altered mental status, R O pneumonia 1 view chest x-ray Comparison: 11/25/2024 Findings: Portions of the exam are obscured by overlying material. The lungs are clear. Heart size is normal. No acute fracture. IMPRESSION: 1. No acute findings. This document has been electronically signed by: Wes Vazquez MD on 12/18/2024 07:03:06
--- NOTE | ~2024-12-18 | IR_ITS ---
CLINICAL HISTORY: End-stage renal disease. The patient presents to interventional radiology for exchange of a tunneled central venous catheter for hemodialysis. PROCEDURES: Exchange of of a 14.5 fr 23 cm tunneled, dual-lumen hemodialysis catheter. MEDICATIONS: -Fentanyl, Versed, Lidocaine 1%. -For additional details, please see nursing flowsheet. COMPLICATIONS: None. ESTIMATED BLOOD LOSS: <5 ml SPECIMENS: None FLUOROSCOPY TIME: min MODERATE SEDATION TIME: 15 min PROCEDURE NOTE: The procedure, risks, benefits, and alternatives were carefully explained to patient, and written informed consent was obtained. The patient was placed supine on the fluoroscopy table. A timeout was performed. The right chest perm catheter and surrounding skin was prepped and draped in usual sterile fashion. Local anesthesia was administered to the right chest wall around the indwelling catheter with lidocaine. A 0.035 in wire was advanced through the indwelling catheter to the IVC . Using blunt dissection, the retention cuff was freed from the surrounding tissue and the indwelling catheter was removed over the wire. A new 23 cm tip to cuff dual-lumen hemodialysis catheter was placed over the wire. The catheter was tested, flushed, and sutured to the skin with its tip in the high right atrium. A permanent fluoroscopic image of the chest was saved to PACS. The catheter ports were packed with heparin per routine protocol. The patient was stable after the procedure and was transferred to the post anesthesia care unit. This procedure was performed under moderate sedation with a dedicated nurse and continuous monitoring of vital signs. FINDINGS: Exchange of a tunneled, dual-lumen hemodialysis catheter as above. Catheter flushes and aspirates very well with a 10 mL syringe. No pneumothorax. IR/IR cvc insert central tunnel IMPRESSION: Exchange of a right IJ approach tunneled hemodialysis catheter PLAN: -The catheter may be used immediately. Electronically signed by: Earnest Sahni MD 01/03/2025 03:44 PM EDT RP
--- NOTE | ~2024-12-18 | MR_ITS ---
CLINICAL HISTORY: acute Encephalopathy MR Brain without gadolinium Comparison: CT/SR - CT HEAD/BRAIN WO IV CON - 12/18/24 05:38 EDT Findings: The ventricles and subarachnoid spaces are within normal limits in size in the ventricles are normal in position with no midline shift or herniation. No intra-axial or extra-axial hemorrhage. No restricted diffusion. Bilateral periventricular greater than subcortical white matter hyperintensities on T2 weighted and FLAIR sequences. Abnormal signal in the jagruti involving almost the entire jagruti. Similar abnormal signal also visualized in the globus pallidus bilaterally. No focal mass lesion or mass effect. The midline structures are grossly normal. Flow voids are maintained within the major vessels of the base of the brain. The orbits are normal. Significant mucosal thickening in left sphenoid sinus and mild mucosal thickening in bilateral ethmoid air cells. No focal bone lesion. IMPRESSION: 1. Nonspecific bilateral periventricular greater than subcortical white matter hyperintensities and rather diffuse pontine hyperintensities with no restricted diffusion. Also abnormal signal in the globus pallidus bilaterally. These are nonspecific and can be seen in white matter chronic ischemic changes (especially with history of hypertension and diabetes), vasculitis, demyelination (although the appearance is typical for multiple sclerosis) hepatic encephalopathy amongst other etiologies.. Further clinical evaluation recommended. 2. No restricted diffusion to suggest acute ischemia/acute infarct and no intracranial hemorrhage. 3. Inflammatory disease in left sphenoid sinus and bilateral ethmoid air cells. This document has been electronically signed by: Yaa Mccormick MD on 12/27/2024 20:59:10
--- NOTE | ~2024-12-18 | CT_ITS ---
CLINICAL HISTORY: fall CT head without contrast Comparison: MR - MR HEAD/BRAIN WO CON - 12/27/24 19:52 EDT Findings: No intracranial mass, midline shift, hydrocephalus, or acute hemorrhage. There is generalized cerebral volume loss. Mild nonspecific foci of low attenuation present within the periventricular white matter, which may be seen in the setting of chronic small vessel ischemic disease. Vwri-[id number] mucosal thickening identified within the ethmoid air cells, most prominent at the right posterior ethmoid air cells. Minimal fluid present at the left maxillary sinus. Mucosal thickening and [id number] fluid present at the left sphenoid sinus. The bilateral mastoid air cells appear clear. No acute skull fracture. Moderate left malar/left periorbital hematoma partially visualized. Impression: 1. No acute intracranial abnormality. No acute intracranial hemorrhage. 2. Minimal fluid present at the left maxillary sinus with mucosal thickening and [id number] fluid of the left sphenoid sinus. These findings may be seen in the setting of acute sinusitis. This document has been electronically signed by: Judson Ward MD on 12/30/2024 03:39:41
--- NOTE | ~2024-12-18 | CT_ITS ---
CLINICAL HISTORY: Seizure, rule out bleed, stroke, fracture CT head without contrast Comparison: 11/15/2024 Findings: No new intra-axial mass, midline shift, hydrocephalus, or acute hemorrhage. No significant atrophy-like change or white matter disease. The visualized paranasal sinuses and mastoid air cells are normal. The orbits are within normal limits. No skull fracture. IMPRESSION: 1. No acute intracranial findings. This document has been electronically signed by: Wes Vazquez MD on 12/18/2024 06:49:47
[2024-12-18 04:46] LABS: Glucose, Whole Blood 97 mg/dL (60-115)
[2024-12-18] MEDS: Midazolam HCl 2 MG/2 ML VIAL IVPUSH (04:48)
--- NOTE | 2024-12-18 04:49 | ED.SEIZURE ---
HPI - Seizure General Chief Complaint: Seizure Stated Complaint: SEIZURE PER EMS Time Seen by Provider: 12/18/24 04:49 Source: EMS Mode of arrival: EMS Limitations: altered mental status History of Present Illness ED Provider: Dr. Ramos Ha HPI Narrative: 49-year-old female with a history of end-stage renal disease on hemodialysis MWF, chronic hyperkalemia on lokelma, substance use disorder on methadone with current IV drug abuse, polysubstance use disorder, bacteremia with VRE, C diff colitis he was brought to emergency department by ambulance for evaluation of altered mental status. The information came from EMS who obtained this information from the patient's roommate. Patient's last well-known time was 20:00 hours last night. Patient was found by her roommate unresponsive with dried blood on her face. EMS felt that the patient was seizing and gave 2 mg of intranasal Versed without any response. On presentation to the emergency department the patient appeared to have fine tonic-clonic movements of her upper and lower extremities, her jaw was clenched tight, her pupils were 4 mm and reactive, she was not responding to painful stimuli. Patient did have dried blood in her mouth and on her lips. Seizure History: Yes Related Data Home Medications ?Medication ?Instructions ?Recorded ?Confirmed sevelamer carbonate 800 mg tablet 800 mg PO TIDWM 09/24/24 12/18/24 sodium zirconium cyclosilicate 10 10 g PO SUTUTHSA 09/24/24 12/18/24 gram oral powder packet (Lokelma) Previous Rx's ?Medication ?Instructions ?Recorded carvedilol 12.5 mg tablet 12.5 mg PO BID #60 tabs 10/28/24 methadone 10 mg/mL oral 50 mg (5 mL) PO DAILY@0800 30 days 10/28/24 concentrate (Methadose) #30 mL levetiracetam 500 mg tablet 500 mg PO BID #60 tabs 11/12/24 (Keppra) nifedipine 30 mg tablet,extended 60 mg PO DAILY #90 tabs 11/16/24 release 24 hr clonidine HCl 0.1 mg tablet 0.1 mg PO BID #60 tabs 12/03/24 hydralazine 25 mg tablet 75 mg PO TID #180 tabs 12/03/24 linezolid 600 mg tablet 600 mg PO Q12H 28 days #56 tabs 12/03/24 vancomycin 125 mg capsule 125 mg PO Q6H #120 caps 12/03/24 Allergies Allergy/AdvReac Type Severity Reaction Status Date / Time No Known Allergies Allergy Verified 12/18/24 04:49 Review of Systems Review of Systems: Yes Unobtainable due to mental condition [facility] Past Medical History Medical History (Updated 12/19/24 @ 11:26 by Parth Rivera MD) ESRD (end stage renal disease) Clostridioides difficile diarrhea Traumatic hematoma of left upper arm Seizure Opioid use disorder Hypertension, uncontrolled Anemia due to chronic kidney disease ESRD (end stage renal disease) on dialysis Medical non-compliance Norovirus Anemia HTN (hypertension) Drug abuse Social History Social History Household Members: Unknown / Unable to assess Household Members Other:: rommmate Housing: Apartment Unable to assess alcohol history related to: Unknown Alcohol intake: unknown Comment: pt in HD Patient Tobacco Use Status: Former Tobacco user Frequency of e-Cigarette/Vaping Use: unknown Use of substances other than those prescribed or required for medical reasons: Unable to respond Substance Use Type: Heroin Currently Displaying Signs/Symptoms of Drug Intoxication Withdrawal: No Spiritual Healthcare Practices: unknown, unable to assess Advance Directives: Yes Advance Directives Information Provided: No Advance Directives on File: Yes Advance Directives Date on File: 09/25/24 Do you have a plan to hurt others: Vague Recently lost weight without trying: Unsure Eating poorly because of decreased appetite: Yes Nutrition Risks: Anorexia Poor oral hygiene: Yes service: No Physical Exam Vital Signs: Vital Signs: Last Vital Signs Temp 98.2 F 12/20/24 10:00 Pulse 96 12/20/24 10:00 Resp 17 12/20/24 10:00 BP 153/87 H 12/20/24 10:00 Pulse Ox 94 12/20/24 10:00 O2 Del Method Mechanical Ventil ation 12/20/24 10:00 O2 Flow Rate 40 12/18/24 10:06 FiO2 25 12/20/24 10:00 Oxygen Flow Rate 2 12/18/24 04:35 BMI result Body Mass Index 20.4 Vital signs revealed elevated blood pressures of 210/113, otherwise vital signs were normal Exam: General: Patient appeared to have fine tonic-clonic/rhythmic movements of her upper and lower extremities, her jaw was clenched tight, unresponsive the painful stimuli Head: No obvious trauma EENT: Pupils were 4 mm and reactive, jaw was clenched tight, dried blood on her lips and in her mouth Neck: Supple Lung: breath sounds symmetric, no wheezing, rales or rhonchi, dialysis catheter right chest Heart: regular rate and rhythm, normal S1, S2 no murmurs or rubs Abdomen: soft, non-tender, nondistended, normal bowel sounds Extremities: no deformities Course Reevaluation(s) Reevaluation #1: Armen Avalos MD I took over @ 730p Last seen 8pm normal, 4am roomate came home felt she has sz. IN narcan/IV narcan, midaz here as Dr. Ha thought she was in status epilepticus. pH 7.43, Lac NML. BP was elevated. Intubated overnight. IO in place. 220/120. BP improved with labetalol. I was asked to place central line as the patient had difficult access see my procedure notes above. X-ray shows slightly shallow ET tube which I have asked therapist to advanced 2 cm. Left IJ as with good placement. I did see some subcutaneous emphysema on ultrasound while placing the line and therefore get a CT of the neck Time: 07:29 Medications Administered Generic Name Dose Route Start Last Admin Trade Name Freq PRN Reason Stop Dose Admin Chlorhexidine Gluconate 15 ml 12/18/24 15:00 12/20/24 08:28 Chlorhexidine Gluc Oral Rinse 15 Ml Mouthwash BUCCAL 15 ml TID ANNA MARIE Administration Famotidine 20 mg 12/18/24 11:15 12/20/24 10:06 Famotidine/Pf 20 Mg/2 Ml Vial IVPUSH 20 mg Q48H ANNA MARIE Administration Heparin Sodium (Porcine) 5,000 unit 12/18/24 09:45 12/20/24 08:32 Heparin Sodium,Porcine 5,000 Unit/Ml Vial SUBCUT Not Given Q12H ANNA MARIE Propofol 1,000 mg in 100 mls @ 0 mls/hr 12/18/24 06:45 12/19/24 15:20 Diprivan IVCONT Infused .Q0M ANNA MARIE Titration Protocol Per Protocol Nicardipine HCl 25 mg/ Sodium 250 mls @ 0 mls/hr 12/18/24 12:30 12/20/24 09:22 Chloride IVCONT 5 mg/hr .Q0M ANNA MARIE 50 mls/hr Administration Protocol Per Protocol Levetiracetam 1,000 mg in 100 mls @ 400 mls/hr 12/18/24 21:00 12/20/24 08:52 Keppra IV Infused Q12H ANNA MARIE Infusion Ampicillin Sodium/Sulbactam 100 mls @ 200 mls/hr 12/18/24 18:00 12/19/24 19:00 Sodium 3 gm/ Sodium Chloride IV Infused Q24H ANNA MARIE Infusion Dexmedetomidine HCl 400 mcg in 100 mls @ 0 mls/hr 12/19/24 12:30 12/20/24 09:50 Precedex IVCONT 0.3 mcg/kg/hr .Q0M ANNA MARIE 3.25 mls/hr Titration Protocol Per Protocol Methylprednisolone Sodium Succinate 40 mg 12/19/24 20:00 12/20/24 06:57 Methylprednisolone Sod Succ 40 Mg/Ml Vial IVPUSH 40 mg Q12H ANNA MARIE Administration Discontinued Medications Generic Name Dose Route Start Last Admin Trade Name Freq PRN Reason Stop Dose Admin Levetiracetam 2,000 mg/ Sodium 120 mls @ 480 mls/hr 12/18/24 05:05 12/18/24 05:25 Chloride IV 12/18/24 05:19 Infused ONCE ONE Infusion Linezolid 600 mg in 300 mls @ 300 mls/hr 12/18/24 08:15 12/18/24 11:00 Zyvox/D5w IV 12/18/24 09:14 Infused ONCE ONE Infusion Ampicillin Sodium/Sulbactam 100 mls @ 200 mls/hr 12/18/24 13:00 12/18/24 17:43 Sodium 3 gm/ Sodium Chloride IV Not Given Q24H ANNA MARIE Ketamine HCl 100 mg 12/18/24 06:42 12/18/24 06:18 Ketamine Hcl/Ns 50 Mg/5 Ml Syringe IVPUSH 12/18/24 06:43 100 mg ONCE ONE Administration Labetalol HCl 20 mg 12/18/24 06:41 12/18/24 06:54 Labetalol Hcl 100 Mg/20 Ml Vial IVPUSH 12/18/24 06:42 20 mg ONCE ONE Administration Labetalol HCl 20 mg 12/18/24 07:23 12/18/24 07:44 Labetalol Hcl 100 Mg/20 Ml Vial IVPUSH 12/18/24 07:24 20 mg ONCE ONE Administration Midazolam HCl 4 mg 12/18/24 04:56 12/18/24 05:25 Midazolam Hcl 2 Mg/2 Ml Vial IM 12/18/24 04:57 4 mg ONCE ONE Administration Midazolam HCl 2 mg 12/18/24 04:56 12/18/24 04:48 Midazolam Hcl 2 Mg/2 Ml Vial IVPUSH 12/18/24 04:57 2 mg ONCE ONE Administration Naloxone HCl 2 mg 12/18/24 06:41 12/18/24 05:33 Naloxone Hcl 2 Mg/2 Ml Syringe IVPUSH 12/18/24 06:42 2 mg ONCE ONE Administration Naloxone HCl 2 mg 12/18/24 06:42 12/18/24 05:31 Naloxone Hcl 2 Mg/2 Ml Syringe IVPUSH 12/18/24 06:43 2 mg ONCE ONE Administration Phenobarbital Sodium 100 mg 12/18/24 05:19 12/18/24 05:31 Phenobarbital Sodium 130 Mg/Ml Vial IVPUSH 12/18/24 05:20 100 mg ONCE ONE Administration Rocuronium Bayard 50 mg 12/18/24 06:42 12/18/24 06:18 Rocuronium Bayard 50 Mg/5 Ml Vial IVPUSH 12/18/24 06:43 50 mg ONCE ONE Administration Medical Decision Making Medical Decision Making MDM Narrative: 49-year-old female with a history of end-stage renal disease on hemodialysis [facility], chronic hyperkalemia on [facility], substance use disorder on methadone with current IV drug abuse, polysubstance use disorder, bacteremia with VRE, C diff colitis he was brought to emergency department by ambulance for evaluation of altered mental status. The information came from EMS who obtained this information from the patient's roommate. Patient's last well-known time was 20:00 hours last night. Patient was found by her roommate unresponsive with dried blood on her face. EMS felt that the patient was seizing and gave 2 mg of intranasal Versed without any response. On presentation to the emergency department the patient appeared to have fine tonic-clonic movements of her upper and lower extremities, her jaw was clenched tight, her pupils were 4 mm and reactive, she was not responding to painful stimuli. Patient did have dried blood in her mouth and on her lips. Differential diagnosis: ?Includes but is not limited to status epilepticus, intracranial bleed, hypertensive crisis, viral encephalopathy electrolyte abnormalities, anemia Course: On presentation in the emergency department, patient appeared to be in status epilepticus. The patient had very poor venous access and a left intraosseous line was obtained. Patient was given Versed 4 mg IM and then 2 mg through the IO with no change in her rhythmic movements or jaw clenching. She was then given 2 mg of intranasal Narcan and Narcan 2 mg IV times 2 with no change in her level of consciousness. 100 mg IV. Despite this treatment the patient had no change in her rhythmic movements. The patient's VBG revealed a pH of 7.48, pCO2 of 36 and a bicarb of 28. The patient's lactic acid was normal at 1.4. These findings are inconsistent with status epilepticus since the patient should have an elevated lactic acid and a low pH. The patient's WBC was elevated 17,000 with a left shift of 90.5. Patient's BUN and creatinine were elevated consistent with her end-stage renal disease. CK was elevated at 1777. Ethanol was below detectable limits. I did discuss the patient's presentation over the phone with the transportation security screener, Dr. Chi. I also discuss the patient's presentation with the transportation security screener physician syrup mixer assistant, Chad Nazario and he did come to the emergency department and assisted with the patient's care. The patient was intubated, OG tube was placed and patient was started on propofol drip. The patient's 0 G-tube initially draining gastric contents and then proximally 400 cc of dark bloody fluid was aspirated from the patient's stomach. The patient was hypothermic and placed on a Clementina Hugger. Patient was given labetalol 20 mg IO with improvement of her blood pressure of 170/100 and I ordered a 2nd dose of labetalol 20 mg IO. 08:08 There is an ICU bed available. At the end of my shift, I did discuss admission with the the transportation security screener, Dr. Vasquez. Patient was recently admitted on 4 vancomycin resistant Enterococcus and was supposed to complete a 14 day course of linezolid which the patient did not complete. I did order blood cultures x2 and linezolid 600 mg b.i.d. she was also being treated for C difficile colitis with vancomycin p.o. q.i.d.. Admission/Observation Consideration of admission/observation: Escalation of care including admission/observation considered (Yes) Lab Data MDM Lab Attestation statement: I reviewed the patient's lab results. 12/20/24 05:40 12/20/24 05:40 Labs: Lab Results 12/18/24 12/18/24 12/18/24 Range/Units 04:43 05:07 05:13 WBC 17.0 H (4.8-10.8) X10*3/uL RBC 4.02 L D (4.20-5.50) X10*6/uL Hgb 12.1 D (12.0-16.0) g/dl Hct 37.2 D (37.0-47.0) % MCV 92.5 (80.0-98.0) fL MCH 30.1 (27.0-33.0) pg MCHC 32.5 (31.0-35.0) g/dl RDW 15.3 (11.0-16.0) % Plt Count 315 (160-400) X10*3/uL MPV 10.9 (9.4-12.3) fL Immature Gran % (Auto) 0.5 H (0.0-0.4) % Neut % (Auto) 90.5 H (45-73) % Lymph % (Auto) 4.4 L (20-40) % Callahan % (Auto) 4.4 (2-11) % Eos % (Auto) 0.0 (0-4) % Baso % (Auto) 0.2 (0-2) % Lymph # (Auto) 0.8 L (1.2-4.9) X10*3/uL Callahan # (Auto) 0.7 (0.1-1.2) X10*3/uL Eos # (Auto) 0.0 (0.0-0.4) X10*3/uL Baso # (Auto) 0.0 (0.0-0.2) X10*3/uL Abs Immat Gran (auto) 0.08 H (0.00-0.03) X10*3/uL Absolute Neuts (auto) 15.4 H (2.0-8.3) x10*3/uL Absolute Nucleated RBC 0.020 H (0.0-0.012) X10*3/uL Nucleated RBC % (auto) 0.1 (0.0-0.2) /100WBC Smear Tech's Comments VERIFIED PT (10.9-12.4) SEC INR (0.9-1.1) APTT (26.0-36.8) SEC VBG pH 7.48 H (7.32-7.43) VBG pCO2 36 mmHg VBG pO2 197 mmHg VBG HCO3 28 H (22-26) mmol/L VBG O2 Saturation 100.0 % VBG Base Excess 4.7 mmol/L Sodium 142 (135-145) mmol/L Potassium 4.4 (3.3-5.1) mmol/L Chloride 96 (96-108) mmol/L Carbon Dioxide 24 (22-29) mmol/L Anion Gap 26 H (12-20) BUN 39 H (9-16) mg/dL Creatinine 7.05 H* (0.5-1.4) mg/dL Estim Creat Clear Calc 6.9 Estimated GFR 6 POC Glucose 97 (60-115) mg/dL Random Glucose 113 (60-115) mg/dL Lactic Acid 1.4 (0.5-2.0) mmol/L Calcium 9.6 D (8.4-10.2) mg/dL Magnesium 2.9 H (1.6-2.6) mg/dL Total Bilirubin 0.5 (0.0-1.0) mg/dL AST 71 H (5-31) U/L ALT 18 (0-31) U/L Alkaline Phosphatase 151 H (39-117) U/L Total Creatine Kinase 1777 H (26-140) U/L Total Protein 6.9 (6.5-8.0) g/dL Albumin 3.7 (3.5-5.0) g/dL Lipase 15 (8-78) U/L Ethyl Alcohol < 10 mg/dL Influenza Type A (PCR) (Negative) Influenza Type B (PCR) (Negative) RSV RNA Qual (PCR) (Negative) SARS-CoV-2 RNA (RT-PCR) (Negative) Blood Type Antibody Screen 12/18/24 12/18/24 12/18/24 Range/Units 06:58 08:11 08:12 WBC (4.8-10.8) X10*3/uL RBC (4.20-5.50) X10*6/uL Hgb (12.0-16.0) g/dl Hct (37.0-47.0) % MCV (80.0-98.0) fL MCH (27.0-33.0) pg MCHC (31.0-35.0) g/dl RDW (11.0-16.0) % Plt Count (160-400) X10*3/uL MPV (9.4-12.3) fL Immature Gran % (Auto) (0.0-0.4) % Neut % (Auto) (45-73) % Lymph % (Auto) (20-40) % Callahan % (Auto) (2-11) % Eos % (Auto) (0-4) % Baso % (Auto) (0-2) % Lymph # (Auto) (1.2-4.9) X10*3/uL Callahan # (Auto) (0.1-1.2) X10*3/uL Eos # (Auto) (0.0-0.4) X10*3/uL Baso # (Auto) (0.0-0.2) X10*3/uL Abs Immat Gran (auto) (0.00-0.03) X10*3/uL Absolute Neuts (auto) (2.0-8.3) x10*3/uL Absolute Nucleated RBC (0.0-0.012) X10*3/uL Nucleated RBC % (auto) (0.0-0.2) /100WBC Smear Tech's Comments PT 14.1 H (10.9-12.4) SEC INR 1.2 H (0.9-1.1) APTT 28.8 (26.0-36.8) SEC VBG pH (7.32-7.43) VBG pCO2 mmHg VBG pO2 mmHg VBG HCO3 (22-26) mmol/L VBG O2 Saturation % VBG Base Excess mmol/L Sodium (135-145) mmol/L Potassium (3.3-5.1) mmol/L Chloride (96-108) mmol/L Carbon Dioxide (22-29) mmol/L Anion Gap (12-20) BUN (9-16) mg/dL Creatinine (0.5-1.4) mg/dL Estim Creat Clear Calc Estimated GFR POC Glucose 104 (60-115) mg/dL Random Glucose (60-115) mg/dL Lactic Acid (0.5-2.0) mmol/L Calcium (8.4-10.2) mg/dL Magnesium (1.6-2.6) mg/dL Total Bilirubin (0.0-1.0) mg/dL AST (5-31) U/L ALT (0-31) U/L Alkaline Phosphatase (39-117) U/L Total Creatine Kinase (26-140) U/L Total Protein (6.5-8.0) g/dL Albumin (3.5-5.0) g/dL Lipase (8-78) U/L Ethyl Alcohol mg/dL Influenza Type A (PCR) NEGATIVE (Negative) Influenza Type B (PCR) NEGATIVE (Negative) RSV RNA Qual (PCR) NEGATIVE (Negative) SARS-CoV-2 RNA (RT-PCR) NEGATIVE (Negative) Blood Type A Positive Antibody Screen NEGATIVE Independent Interpretation I performed an independent interpretation of an: EKG Interpretation: My interpretation the patient's 12 EKG done on 12/18/2024 at 04:49 hours is as follows: Normal sinus rhythm rate 85, normal IN and QRS duration, prolonged QTC of 478 milliseconds, no ST segment elevation, no ST segment depression, no significant T-wave abnormalities, no PACs, no PVCs My independent interpretation of the patient's chest x-ray is as follows: No acute disease Radiology Impression Discussion of test interpretation with radiology: I have reviewed the radiologist's reading. Radiologist Impression: 1 view chest x-ray Comparison: 11/25/2024 Findings: Portions of the exam are obscured by overlying material. The lungs are clear. Heart size is normal. No acute fracture. IMPRESSION: 1. No acute findings. This document has been electronically signed by: Wes Vazquez MD on 12/18/2024 07:03:06 CT head without contrast Comparison: 11/15/2024 Findings: No new intra-axial mass, midline shift, hydrocephalus, or acute hemorrhage. No significant atrophy-like change or white matter disease. The visualized paranasal sinuses and mastoid air cells are normal. The orbits are within normal limits. No skull fracture. IMPRESSION: 1. No acute intracranial findings. This document has been electronically signed by: Wes Vazquez MD on 12/18/2024 06:49:47 CT cervical spine without contrast Comparison: 09/24/2024 Findings: There is motion artifact on several slices. Vertebral alignment is within normal limits. No significant degenerative change. No acute fractures or dislocations. No acute findings on limited view of the intracranial contents. No cervical fluid collections or masses. No consolidation or effusion at the lung apices. IMPRESSION: No acute findings. This document has been electronically signed by: Wes Vazquez MD on 12/18/2024 06:50:35 Independent Historian Clinical information obtained from an independent historian. History obtained from or confirmed by: EMS External Record Review External record reviewed: Inpatient record Procedures Procedure Narrative Procedure Narrative: Ultrasound Guided Peripheral Intravenous Catheter Placement Date/Time: Attempt made at 07:50 12/18/2024 Indication: Intravenous Access Location: Right brachial Provider: Self I was approached by nursing staff and informed that multiple unsuccessful attempts had been made to establish IV access in the patient. The patients arm was surveyed with the ultrasound for verification of vessel collapsibility, patency, depth and caliber, as well as identification of nearby structures. The target area was prepped with chlorhexidine. A tourniquet was placed proximally on the extremity. Under real-time ultrasound guidance, an 20 G 2.25 inch AccuCath nontunneled catheter was advanced into the target vein. Dark blood was visualized in the flash chamber. The catheter was easily advanced into the vein. Unfortunately we appeared to have punctured through the vein and the catheter was not able to be positioned appropriately. Pressure was held over the vein and the catheter was removed Estimated Blood Loss: 1mL Total Time for Procedure: 5min Image stored Armen Avalos MD: 08:00, 12/18/2024 Ultrasound guidance was used for central venous catheter placement identified in the left internal jugular vein well CVC ACCESS PROCEDURE NOTE INDICATION: Emergency vascular access for fluid and drug administration. INFORMED CONSENT: Emergent for central access, patient intubated sedated on propofol unable to consent PROCEDURE: The patient was placed in Trendelenburg and the left neck a michelle was prepped and draped in a sterile fashion. The area of interest was anesthetized with local anesthetic. With the introducer needle bevel oriented inferomedially, the left neck area was entered shallowly advancing with continuous aspiration on the syringe until the left internal jugular vein was entered and there was free flow of venous blood. A Seldinger technique was then utilized to place a central venous catheter over a guidewire and the catheter was secured in place. A Portable Chest X-ray was ordered to confirm the catheter?s position. EBL: < 10 mL COMPLICATIONS: None Intubation Intubation Type:: Endotracheal Tube Insertion Intubation Date:: 12/18/24 Time out performed: No sedative: Ketamine Mg Given: 100 paralytic: Rocuronium Mg Given: 50 Laryngoscope: other ([place] scope) Assist Device Used: fiber optic device ET Tube Size: 6 ET Tube Uncuffed: No Tube Placement Confirmation: visualized tube passing through cords Patient Tolerated Procedure: no complications Additional Comments: The patient's airway was swollen and friable, and was unable to have pass a 7.0 through the patient's cords. I made 2 more attempts with a 6.0 2 but I was unsuccessful. The patient was then intubated on 1st attempt by the physician syrup mixer assistant transportation security screener, Janet Nazario with a 6.0 endotracheal tube. Tube placement lose confirmed with chest x-ray and positive color change on end-tidal CO2 cap. IO Right Tibia: IO Instrument Used to Penetrate the Cortex: battery powered IO drill Patient Tolerated Procedure: no complications Complications: none Critical Care Time Critical Care Time Total Critical Care Time: 130 Attestation: Critical Care: The patient was critically ill with a high probability of imminent or life threatening deterioration. I spent greater than 30 minutes of discontinuous time evaluating the patient,delivering critical care at the bedside, discussing and evaluating pertinent data with consultants. Critical care time does not include time spent performing separately billable procedures or teaching. Total time spent performing critical care was 130 minutes. Discharge Plan Discharge Clinical Impression: Acute encephalopathy, Hypertensive crisis, VRE (vancomycin-resistant Enterococci), Hypothermia Patient Disposition: Admitted As Inpatient Interventions: Admission Worksheet (ED) Last Done: 12/18/24 10:36 Discharge Date/Time: 12/18/24 10:36
[2024-12-18] MEDS: levETIRAcetam 2,000 MG in 0.9 % Sodium Chloride 100 ML 480 MG IV (05:10)
[2024-12-18 05:13] LABS: Basophils Percent Auto 0.2 % (0-2); Hematocrit 37.2 % (37.0-47.0); Hemoglobin 12.1 g/dl (12.0-16.0); Imm Gran Abs Auto 0.08 X10*3/uL (0.00-0.03); Imm Gran Pct Auto 0.5 % (0.0-0.4); Lymphocytes Absolute Auto 0.8 X10*3/uL (1.2-4.9); Lymphocytes Percent Auto 4.4 % (20-40); Mean Corpuscular HGB Conc 32.5 g/dl (31.0-35.0); Mean Corpuscular Hemoglobin 30.1 pg (27.0-33.0); Mean Corpuscular Volume 92.5 fL (80.0-98.0); Mean Platelet Volume 10.9 fL (9.4-12.3); Monocytes Absolute Auto 0.7 X10*3/uL (0.1-1.2); Monocytes Percent Auto 4.4 % (2-11); NRBC Pct Auto 0.1 /100WBC (0.0-0.2); Neutrophils Absolute Auto 15.4 x10*3/uL (2.0-8.3); Neutrophils Percent Auto 90.5 % (45-73); Platelet Count 315 X10*3/uL (160-400); Red Blood Count 4.02 X10*6/uL (4.20-5.50); Red Cell Distribution Width 15.3 % (11.0-16.0); SCAN SMEAR FLAG 1
[2024-12-18 05:15] LABS: Venous Blood Gas Refer to POC result
[2024-12-18 05:16] LABS: VBG Base Excess 4.7 mmol/L; VBG HCO3 28 mmol/L (22-26); VBG pCO2 36 mmHg; VBG pH 7.48 (7.32-7.43); VBG pO2 197 mmHg
[2024-12-18 05:19] LABS: MANUAL DIFF FLAG SCAN
[2024-12-18] MEDS: Midazolam HCl 2 MG/2 ML VIAL 4 MG IM (05:25)
[2024-12-18 05:26] LABS: Lactic Acid 1.4 mmol/L (0.5-2.0)
[2024-12-18] MEDS: PHENobarbitaL sodium 130 MG/ML VIAL 100 MG IVPUSH (05:31)
[2024-12-18] MEDS: Naloxone HCl 2 MG/2 ML SYRINGE IVPUSH ×2 (05:31→05:33)
[2024-12-18 05:33] LABS: SLIDE REVIEW VERIFIED
[2024-12-18 05:35] LABS: Alanine Aminotransferase 18 U/L (0-31); Albumin Level 3.7 g/dL (3.5-5.0); Alkaline Phosphatase 151 U/L (39-117); Anion Gap 26 (12-20); Aspartate Amino Transferase 71 U/L (5-31); Bilirubin Total 0.5 mg/dL (0.0-1.0); Blood Urea Nitrogen 39 mg/dL (9-16); Calcium 9.6 mg/dL (8.4-10.2); Carbon Dioxide 24 mmol/L (22-29); Chloride 96 mmol/L (96-108); Creatinine Clr Calc Pharmacy 6.9; Estimated Glomerular Filt Rate 6; Ethanol < 10 mg/dL; Glucose Random 113 mg/dL (60-115); Lipase 15 U/L (8-78); Magnesium 2.9 mg/dL (1.6-2.6); Potassium 4.4 mmol/L (3.3-5.1); Sodium 142 mmol/L (135-145); Total Protein 6.9 g/dL (6.5-8.0)
[2024-12-18] MEDS: Rocuronium Bromide 50 MG/5 ML VIAL IVPUSH (06:18)
[2024-12-18] MEDS: Ketamine HCl/NS 50 MG/5 ML SYRINGE 100 MG IVPUSH (06:18)
[2024-12-18] MEDS: propofoL 1,000 MG/100 ML VIAL 8.55 MG IVCONT (06:24)
--- NOTE | 2024-12-18 06:40 | PC.NURSE ---
late entry- pt biba from home, pt roommate called ems. per ems. pt last well known 8pm, roommate found pt down on ground, unknown time. pt was covered in dry blood and noted to have seizure like activity. ems admin 2mg versed intranasal. on arrival, pt non responsive to painful stimuli, but maintaining air way. pt appeared to be continuous with seizures. 0443- 2mg im versed admin 0445- IO in right tibia placed by provider d/t pt being hard stick 0448- 2mg versed admin through IO attempted to obtain iv access/ icu nurse at bedside attempting US guided, unable to. 0505-keppra drip administered, following IO phenobarb 0523- nasal narcan admin 0531-2mg IO narcan given 0533-2mg IO narcan given 0600- pt moved into room 5, plan for intubation 0618- 100 ketamine admin 0618- 50 mitchel admin 0623- 6 tube, 23 lip, confirmed with + lung sounds and color change 0624- propfol started at 30mcg 0629-OG placed by provider, coffee ground emesis noted 0641-propofol increased to 40mcg
[2024-12-18] MEDS: Labetalol HCL 100 MG/20 ML VIAL 20 MG IVPUSH ×2 (06:54→07:44)
--- NOTE | 2024-12-18 06:56 | PC.NURSE ---
per , pt does not make urine, do not place dexter at this time. rectal probe placed.
[2024-12-18 07:01] LABS: Glucose, Whole Blood 104 mg/dL (60-115)
--- NOTE | 2024-12-18 07:23 | PC.NURSE ---
applied lyubov monge at 0723 for rectal temp 93.9
--- NOTE | 2024-12-18 07:49 | PC.NURSE ---
mech vent: 14RR, Tidal 300, Peep 6, 30% o2 [place] RT at bedside
--- NOTE | 2024-12-18 07:51 | PC.NURSE ---
Dr. Fabian at bedside to place central line
--- NOTE | 2024-12-18 08:23 | PC.NURSE ---
16F CVC placed to pts L IJ - no blood return on blue cap line but line flushes well. xray at bedside to verify placement, per MD Rafal ponce to use.
[2024-12-18 08:25] LABS: INTERNATIONAL NORM RATIO 1.2 (0.9-1.1); Prothrombin Time 14.1 SEC (10.9-12.4)
[2024-12-18 08:28] LABS: Partial Thromboplastin Time 28.8 SEC (26.0-36.8)
--- NOTE | 2024-12-18 08:39 | PC.NURSE ---
call placed to pharmacy for Linezolid med not available in pys
--- NOTE | 2024-12-18 08:40 | PC.RT ---
Per MD order, ETT increased two cm due to x ray showing ETT ended 7 cm above yaron. ETT is now 25cm at the lip.
--- NOTE | 2024-12-18 08:41 | PC.NURSE ---
Mad[place] RT at [facility] eto advance ETT - 25 at the lip, 6.0 ETT pt remains on vent tidal vol 300, 14RR, 6 Peep, 40%. bed locked in lowest position. Clementina hugger inplace for rectal temp 94.8. Propofol infusing through CVC line at 40 mcg/kg/min
[2024-12-18] MEDS: Linezolid/D5W 600 MG/300 ML PIGGYBACK 300 MG IV (09:03)
[2024-12-18 09:04] LABS: Influenza A PCR NEGATIVE (Negative); Influenza B PCR NEGATIVE (Negative); Resp Syncy Virus RNA Qual PCR NEGATIVE (Negative); SARS COV2 PCR INHOUSE NEGATIVE (Negative)
--- NOTE | 2024-12-18 10:06 | PC.NURSE ---
rectal temp 96.8 at this time myra D/Aretha monge
--- NOTE | 2024-12-18 10:35 | PC.NURSE ---
emptied 900ml of coffee ground and mixed BRB from oral suctioning and OG tube suction. documented in I&O
--- NOTE | 2024-12-18 10:48 | PHA.MEDREC ---
Addendum entered by Daphney Cummings RPh 12/18/24 11:34: REVIEWED BY PHARMACIST Original Note: Pharmacy Consult ? Medication Reconciliation Pharmacy has completed the medication reconciliation. Used claims and past discharge papers to confirm medications. Past notes report patient is on methadone, last med rec (11/30) says she gets 50 mg from [facility], MR on 11/15 says [facility] on [facility] in [place]. Nifedipine was increased to 60 mg on 11/16 (sent to [facility] pharmacy) and per patient during last med rec confirmed as well. Carvedilol was increased to 12.5 mg bid on 10/28 (sent to [facility] Patient reports last med rec that she takes Lokelma MOWEFR, claims and previous DC papers show non dialysis days KARANUTHSA, will change in home list to non dialysis days. Will have to confirm with [facility] nifedipine increase, methadone dose, and new medications sent on 11/30. Will need to confirm with [facility] [employer] spot picker of increased carvedilol. Will have med rec [facility] follow up Thursday/Thursday (holiday).
--- NOTE | 2024-12-18 11:21 | PM.CCHP ---
History of Present Illness Date of Service: 12/18/24 Chief Complaint: Altered mental status 49-year-old lady with underlying ESRD on hemodialysis, substance abuse on methadone, prior bacteremia with VRE, C diff, admitted after patient was brought in for evaluation of alteration of mental status with suspicion for seizure. Intubated in the emergency room for airway protection. Initial CT head with acute findings, tonic-clonic movements abated with benzodiazepines/propofol. Review of Systems Review of Systems: No unobtainable due to endotracheal tube, Unobtainable due to mental condition or Unobtainable due to mental status PMFSH Past Medical History Medical History (Updated 12/18/24 @ 11:37 by Carlton Vasquez MD) ESRD (end stage renal disease) Clostridioides difficile diarrhea Traumatic hematoma of left upper arm Seizure Opioid use disorder Hypertension, uncontrolled Anemia due to chronic kidney disease ESRD (end stage renal disease) on dialysis Medical non-compliance Norovirus Anemia HTN (hypertension) Drug abuse Social History Social History Household Members: Other [facility] Housing[facility] Apartment Do you presently have visiting nurse or other home services: Yes ([facility] for methadone) Unable to assess alcohol history related to: Unknown Alcohol intake: unknown Comment: pt in HD Patient Tobacco Use Status: Former Tobacco user Use of substances other than those prescribed or required for medical reasons: Unable to respond Substance Use Type: Heroin Advance Directives: Yes Advance Directives on File: Yes Advance Directives Date on File: 09/25/24 Do you have a plan to hurt others: No Plan Nutrition Risks: No Nutritional Risk service: No Meds Allergies Allergy/AdvReac Type Severity Reaction Status Date / Time No Known Allergies Allergy Verified 12/18/24 04:49 Active Medications: Current Medications Chlorhexidine Gluconate (Chlorhexidine Gluc Oral Rinse 15 Ml Mouthwash) 15 ml BUCCAL TID ANNA MARIE Famotidine (Famotidine/Pf 20 Mg/2 Ml Vial) 20 mg IVPUSH Q48H ANNA MARIE Heparin Sodium (Porcine) (Heparin Sodium,Porcine 5,000 Unit/Ml Vial) 5,000 unit SUBCUT Q12H ANNA MARIE Propofol (Diprivan) 1,000 mg in 100 mls @ 0 mls/hr IVCONT .Q0M ANNA MARIE; Protocol Last Titration: 12/18/24 10:14 Dose: 50 mcg/kg/min, 14.25 mls/hr Home Medications ?Medication ?Instructions ?Recorded ?Confirmed ?Last Taken ?Type sevelamer carbonate 800 mg tablet 800 mg PO TIDWM 09/24/24 12/18/24 11/29/24 History sodium zirconium cyclosilicate 10 10 g PO SUTUTHSA 09/24/24 12/18/24 11/28/24 History gram oral powder packet (Lokelma) Physical Exam Vital Signs: Vital Signs: Last Vital Signs Temp 96.8 F 12/18/24 10:06 Pulse 82 12/18/24 10:14 Resp 16 12/18/24 10:14 BP 184/98 H 12/18/24 10:14 Pulse Ox 97 12/18/24 10:14 O2 Del Method Mechanical Ventil ation 12/18/24 10:06 O2 Flow Rate 40 12/18/24 10:06 FiO2 30 12/18/24 11:00 Oxygen Flow Rate 2 12/18/24 04:35 BMI result Body Mass Index 20.4 Const: General: no acute distress and other (Sedated on ventilatory support) Eyes: Sclerae: sclerae normal EOM: EOMs intact bilaterally Neck: Neck: Yes no lymphadenopathy, Yes trachea midline and Yes supple Resp: Effort & Inspection: normal respiratory effort and no respiratory distress Auscultation: clear to auscultation bilaterally Cardio: Rate: regular rate Rhythm: regular rhythm Heart sounds: no gallops, no murmurs and no rubs GI: Palpation (GI): Soft to palpation and Other GI palpation findings present ( Nontender) Auscultation: normal bowel sounds Extrem: Other: Stigmata of skin popping General: Yes no pedal edema, No clubbing and No cyanosis Results Labs 12/18/24 05:07 12/18/24 05:07 Labs: Laboratory Results - last 24 hr 12/18/24 12/18/24 12/18/24 04:43 05:07 05:13 MCV 92.5 MCH 30.1 MCHC 32.5 RDW 15.3 Plt Count 315 MPV 10.9 Immature Gran % (Auto) 0.5 H Neut % (Auto) 90.5 H Lymph % (Auto) 4.4 L [place] % (Auto) 4.4 Eos % (Auto) 0.0 Baso % (Auto) 0.2 Lymph # (Auto) 0.8 L [place] # (Auto) 0.7 Eos # (Auto) 0.0 Baso # (Auto) 0.0 Abs Immat Gran (auto) 0.08 H Absolute Neuts (auto) 15.4 H Absolute Nucleated RBC 0.020 H Nucleated RBC % (auto) 0.1 Smear Tech's Comments VERIFIED PT INR APTT VBG pH 7.48 H VBG pCO2 36 VBG pO2 197 VBG HCO3 28 H VBG O2 Saturation 100.0 VBG Base Excess 4.7 Anion Gap 26 H Estim Creat Clear Calc 6.9 Estimated GFR 6 POC Glucose 97 Random Glucose 113 Lactic Acid 1.4 Calcium 9.6 D Magnesium 2.9 H Total Bilirubin 0.5 AST 71 H ALT 18 Alkaline Phosphatase 151 H Total Creatine Kinase 1777 H Total Protein 6.9 Albumin 3.7 Lipase 15 Ethyl Alcohol < 10 Influenza Type A (PCR) Influenza Type B (PCR) RSV RNA Qual (PCR) SARS-CoV-2 RNA (RT-PCR) Blood Type Antibody Screen 12/18/24 12/18/24 12/18/24 06:58 08:11 08:12 MCV MCH MCHC RDW Plt Count MPV Immature Gran % (Auto) Neut % (Auto) Lymph % (Auto) [place] % (Auto) Eos % (Auto) Baso % (Auto) Lymph # (Auto) [place] # (Auto) Eos # (Auto) Baso # (Auto) Abs Immat Gran (auto) Absolute Neuts (auto) Absolute Nucleated RBC Nucleated RBC % (auto) Smear Tech's Comments PT 14.1 H INR 1.2 H APTT 28.8 VBG pH VBG pCO2 VBG pO2 VBG HCO3 VBG O2 Saturation VBG Base Excess Anion Gap Estim Creat Clear Calc Estimated GFR POC Glucose 104 Random Glucose Lactic Acid Calcium Magnesium Total Bilirubin AST ALT Alkaline Phosphatase Total Creatine Kinase Total Protein Albumin Lipase Ethyl Alcohol Influenza Type A (PCR) NEGATIVE Influenza Type B (PCR) NEGATIVE RSV RNA Qual (PCR) NEGATIVE SARS-CoV-2 RNA (RT-PCR) NEGATIVE Blood Type A Positive Antibody Screen NEGATIVE Assessment and Plan (1) ESRD (end stage renal disease): Status: Acute (2) Acute encephalopathy: Status: Acute (3) Hypertensive urgency: Status: Acute (4) Drug abuse: Status: Acute Plan Assessment: 49-year-old lady with underlying ESRD and substance abuse admitted with alteration of mental status with possible seizure activity requiring intubation for airway protection Plan: Neuro: Possible seizure, start Keppra. Initial CT head with no acute findings. May have toxic encephalopathy from substance abuse. Cardiac: No acute issues. Pulmonary: Intubated for airway protection, continue to titrate off ventilatory support as tolerated. Subcutaneous emphysema intubation, CT chest is pending. Renal: ESRD on hemodialysis. Nephrology service care appreciated. Endo: No acute issues. GI: No acute issues. ID: No acute issues Heme/Onc: No acute issues. Psych: No acute issues. Miscellaneous: No acute issues. Prophylaxis: Heparin, famotidine Diet: NPO Critical care time spent: 60 minutes
[2024-12-18] MEDS: propofoL 1,000 MG/100 ML VIAL 14.25 MG IVCONT (11:34)
[2024-12-18] MEDS: Famotidine/PF 20 MG/2 ML VIAL IVPUSH (11:39)
[2024-12-18] MEDS: niCARdipine HCL 25 MG in 0.9 % Sodium Chloride 240 ML 50 MG IVCONT (11:55)
--- NOTE | 2024-12-18 15:43 | HO.SKINPHOTO ---
Skin Admission Assessment Location: coccyx Category: pressure injury Stage: DTI Location: Right shoulder Category: PI Stage: Stage II Length: 2.5 cm Width: 1 cm Location: Medial back Category: PI Stage: DTI Length: 1cm Width: 1cm
--- NOTE | 2024-12-18 15:50 | PC.NURSE ---
Assumed care of patient 10:45. Pt arrived from ED via stretcher. Patient is mechanically vented, ETT 6.0 25 @lip. ETT holister changed with RT at bedside to improve tube securement. Pt provided full bed bath including CHG wipes, hair washed ad brushed. Pt has moderate amount swelling to left anterior and posterior neck. TLC to left IJ present, positive blood return to red and white lumens. No blood return to blue lumen. CT neck and CT chest completed with RT and transport. Lung lara have inspiratory wheeze and dimness to right lower lobe on auscultation. Breaths sounds present bilaterally. Patient receiving dialysis treatment in 253. High fall precautions in place, patient repositioned Q2HR. See skin note for skin photos.
[2024-12-18] MEDS: Chlorhexidine Gluc Oral Rinse 15 ML MOUTHWASH BUCCAL ×2 (18:00→21:23)
[2024-12-18] MEDS: Ampicillin Sodium/Sulbactam Na 3 GM in 0.9 % Sodium Chloride 100 ML IV (18:00)
[2024-12-18] MEDS: propofoL 1,000 MG/100 ML VIAL 11.4 MG IVCONT (18:31)
[2024-12-18] MEDS: Heparin Sodium,Porcine 5,000 UNIT/ML VIAL 5000 UNIT SUBCUT (21:24)
[2024-12-18] MEDS: levETIRAcetam in NaCl (iso-os) 1,000 MG/100 ML PIGGYBACK 400 MG IV (21:26)
[2024-12-19] VITALS (36 sets, daily range): BP systolic 102–161; BP diastolic 65–100; PULSE 86–112; RESP 14–24; TEMP 34.3–38.2; O2SAT 89–105; BMI 18.6
[2024-12-19] MEDS: niCARdipine HCL 25 MG in 0.9 % Sodium Chloride 240 ML IVCONT ×2 (01:09→15:08)
[2024-12-19] MEDS: propofoL 1,000 MG/100 ML VIAL 11.4 MG IVCONT ×2 (02:04→08:46)
[2024-12-19 04:43] LABS: VBG Base Excess 4.6 mmol/L; VBG HCO3 29 mmol/L (22-26); VBG pCO2 45 mmHg; VBG pH 7.42 (7.32-7.43); VBG pO2 62 mmHg
[2024-12-19 04:45] LABS: MANUAL DIFF FLAG NO
[2024-12-19 04:46] LABS: Basophils Percent Auto 0.1 % (0-2); Hematocrit 31.7 % (37.0-47.0); Hemoglobin 9.8 g/dl (12.0-16.0); Imm Gran Abs Auto 0.07 X10*3/uL (0.00-0.03); Imm Gran Pct Auto 0.5 % (0.0-0.4); Lymphocytes Absolute Auto 1.2 X10*3/uL (1.2-4.9); Lymphocytes Percent Auto 7.8 % (20-40); Mean Corpuscular HGB Conc 30.9 g/dl (31.0-35.0); Mean Corpuscular Volume 96.9 fL (80.0-98.0); Mean Platelet Volume 10.5 fL (9.4-12.3); Monocytes Absolute Auto 0.6 X10*3/uL (0.1-1.2); Monocytes Percent Auto 3.8 % (2-11); NRBC Pct Auto 0.1 /100WBC (0.0-0.2); Neutrophils Absolute Auto 13.5 x10*3/uL (2.0-8.3); Neutrophils Percent Auto 87.8 % (45-73); Platelet Count 287 X10*3/uL (160-400); Red Blood Count 3.27 X10*6/uL (4.20-5.50); Red Cell Distribution Width 16.6 % (11.0-16.0); White Blood Count 15.4 X10*3/uL (4.8-10.8)
[2024-12-19 04:52] LABS: Venous Blood Gas Refer to POC result
[2024-12-19 05:05] LABS: Alanine Aminotransferase 19 U/L (0-31); Albumin Level 3.3 g/dL (3.5-5.0); Alkaline Phosphatase 109 U/L (39-117); Anion Gap 23 (12-20); Aspartate Amino Transferase 53 U/L (5-31); Bilirubin Total 0.3 mg/dL (0.0-1.0); Blood Urea Nitrogen 31 mg/dL (9-16); Calcium 8.8 mg/dL (8.4-10.2); Carbon Dioxide 24 mmol/L (22-29); Chloride 98 mmol/L (96-108); Creatinine Clr Calc Pharmacy 10.8; Estimated Glomerular Filt Rate 10; Glucose Random 93 mg/dL (60-115); Magnesium 2.4 mg/dL (1.6-2.6); Phosphorus 7.7 mg/dL (2.7-4.5); Potassium 4.1 mmol/L (3.3-5.1); Sodium 141 mmol/L (135-145); Total Protein 6.5 g/dL (6.5-8.0)
--- NOTE | 2024-12-19 06:42 | PC.NURSE ---
Critical Care Nursing Note? Assumed care of the patient at 1900. Patient intubated and sedated throughout the shift. Nicardipine restarted at 1999 for SBP above the parameter. OGT remained clamped, patient NPO. Report given to oncoming shift.
[2024-12-19] MEDS: Heparin Sodium,Porcine 5,000 UNIT/ML VIAL 5000 UNIT SUBCUT ×2 (10:17→21:09)
[2024-12-19] MEDS: levETIRAcetam in NaCl (iso-os) 1,000 MG/100 ML PIGGYBACK 400 MG IV ×2 (10:17→20:04)
[2024-12-19] MEDS: Chlorhexidine Gluc Oral Rinse 15 ML MOUTHWASH BUCCAL ×3 (10:17→20:04)
--- NOTE | 2024-12-19 11:21 | P.PNCC_ITS ---
Subjective Subjective Date of Service: 12/19/24 Interval History: Continues to be on ventilator support this morning On propofol for sedation, fentanyl for analgesia Underwent hemodialysis this morning Critical Care Time (minutes): 35 Physical Exam 2 Vital Signs: Vital Signs: Last Vital Signs Temp 97.5 F 12/19/24 08:00 Pulse 92 12/19/24 11:00 Resp 15 12/19/24 11:00 BP 155/95 H 12/19/24 11:00 Pulse Ox 97 12/19/24 11:00 O2 Del Method Mechanical Ventil ation 12/19/24 11:00 O2 Flow Rate 40 12/18/24 10:06 FiO2 40 12/19/24 11:00 Oxygen Flow Rate 2 12/18/24 04:35 BMI result Body Mass Index 18.6 General: Middle-aged lady in acute distress, unresponsive connected to the ventilator Nutritional Appearance: well nourished and overweight Eyes: appearance normal, both eyes and all related structures; Alignment and Position: alignment normal and position normal Neck: No lymphadenopathy, no thyromegaly Resp: bilateral air entry equal, occasional added sounds present Cardio: Regular rate, regular rhythm; Heart sounds: S1 normal heart sound present and S2 normal heart sound present GI: soft, nontender, no guarding, no hepatosplenomegaly : bladder normal to inspection, bladder normal to palpation, no renal angle tenderness Skin: no rashes or lesions noted and elasticity normal Neuro: Sedated, no focal deficits Objective Data Labs 12/19/24 04:29 12/19/24 04:29 Labs: Laboratory Results - last 24 hr 12/18/24 12/19/24 12/19/24 11:32 04:29 04:39 WBC 15.4 H RBC 3.27 L Hgb 9.8 L Hct 31.7 L MCV 96.9 MCH 30.0 MCHC 30.9 L RDW 16.6 H Plt Count 287 MPV 10.5 Immature Gran % (Auto) 0.5 H Neut % (Auto) 87.8 H Lymph % (Auto) 7.8 L [place] % (Auto) 3.8 Eos % (Auto) 0.0 Baso % (Auto) 0.1 Lymph # (Auto) 1.2 [place] # (Auto) 0.6 Eos # (Auto) 0.0 Baso # (Auto) 0.0 Abs Immat Gran (auto) 0.07 H Absolute Neuts (auto) 13.5 H Absolute Nucleated RBC 0.020 H Nucleated RBC % (auto) 0.1 VBG pH 7.42 VBG pCO2 45 VBG pO2 62 VBG HCO3 29 H VBG O2 Saturation 87.0 VBG Base Excess 4.6 Sodium 141 Potassium 4.1 Chloride 98 Carbon Dioxide 24 Anion Gap 23 H BUN 31 H Creatinine 4.52 H* Estim Creat Clear Calc 10.8 Estimated GFR 10 Random Glucose 93 Calcium 8.8 D Phosphorus 7.7 H Magnesium 2.4 Total Bilirubin 0.3 AST 53 H ALT 19 Alkaline Phosphatase 109 Total Creatine Kinase 2037 H Total Protein 6.5 Albumin 3.3 L Microbiology Microbiology Results: Microbiology 12/18/24 08:11 Blood - Venous Blood Culture - Preliminary No growth after 24 hours. 12/18/24 08:11 Blood - Venous Blood Culture - Preliminary No growth after 24 hours. Progress Note: A&P Assessment and plan (1) Hypertensive urgency: Status: Acute (2) ESRD (end stage renal disease): Status: Acute (3) Encephalopathy, hypertensive: Status: Acute (4) Acute respiratory failure: Status: Acute (5) Status epilepticus: Status: Acute Plan Neuro: Acute encephalopathy possibly due to drug overdose versus status epilepticus Patient has a history of IV drug abuse but unable to get a urinary drug screen as patient is anuric On propofol for sedation, as needed fentanyl for analgesia, we will slowly taper off propofol while watching for any seizures, we will add Precedex to help weaning off propofol On Keppra for the management of seizures Close neurological status monitoring in the ICU every hour Cardiac: Hypertensive urgency: Not sure when was the last dialysis, but received a session today Currently on nicardipine drip we will titrate to keep the blood pressure is under control Respiratory: Acute hypoxemic respiratory failure due to aspiration pneumonia There was some subcutaneous air noted around the trachea post intubation, she also had significant airway edema prior to intubation so she has a smaller sized ET tube 6. . Need to rule out angioedema. Currently on ventilator support On PRVC mode FiO2 40%, PEEP 5, TV 3 6, RR 18 Peak pressures and plateau pressures are under the curve Ventilator management bundle with head end elevation, aspiration precaution, chlorhexidine mouthwash, daily awakening trials, daily spontaneous breathing trials GI: We will start on tube feeds Renal: End-stage renal disease: On maintenance hemodialysis, received a session this morning We will closely monitor I's and O's Avoid nephrotoxic medications Heme: Chronic anemia, closely monitor H&H, transfuse for hemoglobin less than 7 grams/deciliter Endocrine: Blood sugars under control Sliding scale insulin as needed Infectious disease: negative pancultures On ampicillin sulbactam Musculoskeletal: Decubitus ulcer prevention protocol Lines: HD line Prophylaxis: heparin, pantoprazole Quality Stroke Does the patient have a stroke diagnosis?: No VTE Prior VTE?: No VTE Risk Level:: Medical - moderate - high VTE Device Contraindication: Treatment Not Indicated VTE Drug Contraindication: N/A - Med Ordered
--- NOTE | 2024-12-19 12:54 | MHC.CLN ---
NUTRITION PATIENT IS INTUBATED AND SEDATED. REQUIRES NUTRITION/HYDRATION VIA TUBE FEEDING. DX ESRD ON HEMODIALYSIS. SKIN WITH MULTIPLE PRESSURE INJURIES. RECOMMEND TUBE FEEDING NEPRO AT 25 ML/HOUR AND FREE WATER FLUSHES 120 ML Q 6 HOURS. PROVIDES 1381 KCALS WITH SEDATION (30.4 KCALS/KG IBW), 48.6 G PROTEIN (1.07 G/KG IBW), TOTAL FREE WATER FROM FORMULA AND FLUSHES 916 ML (20.1 ML/KG IBW). FOLLOW FOR TUBE FEED TOLERANCE, LYTES, AND SKIN INTEGRITY. SEE CLINICAL NUTRITION ASSESSMENT 12/19/24.
[2024-12-19] MEDS: dexmedeTOMIDine HCL/NS 400 MCG/100 ML PLAST..BAG 10.83 MCG IVCONT (13:01)
--- NOTE | 2024-12-19 13:27 | MHC.CM.PN ---
Addendum entered by Veronica Esparza 12/19/24 13:31: HCP on file: dtr Nica: msg left requesting call back. Original Note: Pt intubated and unable to participate in CM assessment; information obtained from EMR and review of last admission 3 weeks prior. Pt resides with roommate, has no active PCP and receives daily Methadone from [facility] via [employer]. She attends [facility] for HD on ,, - reportedly has transportation to [facility]. Pt with known substance use, history of leaving care AMA and non compliance with treatment. CM to follow for finalization of d/c planning needs.
[2024-12-19] MEDS: Ampicillin Sodium/Sulbactam Na 3 GM in 0.9 % Sodium Chloride 100 ML IV (18:29)
[2024-12-19] MEDS: dexmedeTOMIDine HCL/NS 400 MCG/100 ML PLAST..BAG 12.99 MCG IVCONT (18:31)
--- NOTE | 2024-12-19 19:19 | PC.NURSE ---
Assumed care of patient at 0700, Neuro: Patient sedated Rass -3, on dialysis this AM, titrated off propofol and on to precedex. Resp: lungs Dim bases, see vent assessment for full assessment.? Cardiac: SR to ST this shift, nonpitting edema to both hands noted? GI/: Patient anuric, Nepro tube feeds started as ordered, see tubefeed assessment for full detail. Integumentary/Musculoskeletal: [place] foam in place on Coccyx and? mid back for DTI, right shoulder pink foam for stage 2, scattered bruising noted, bilateral forearm areas of injection sites.
[2024-12-19] MEDS: methylPREDNISolone Sod Succ 40 MG/ML VIAL IVPUSH (20:04)
[2024-12-20] VITALS (44 sets, daily range): BP systolic 124–164; BP diastolic 78–93; PULSE 68–108; RESP 16–26; TEMP 34.5–37.9; O2SAT 94–100; BMI 18.7
[2024-12-20] MEDS: niCARdipine HCL 25 MG in 0.9 % Sodium Chloride 240 ML IVCONT ×2 (00:07→19:47)
[2024-12-20] MEDS: dexmedeTOMIDine HCL/NS 400 MCG/100 ML PLAST..BAG 8.66 MCG IVCONT (01:51)
[2024-12-20] MEDS: niCARdipine HCL 25 MG in 0.9 % Sodium Chloride 240 ML 50 MG IVCONT ×3 (04:46→13:53)
--- NOTE | 2024-12-20 05:32 | PC.NURSE ---
Assumed care of the patient at 1900. Patient intubated and sedated throughout the shift. Nicardipine drip titrated throughout shift see SEP. Tube feeding increased to 25mls/hr per order and now at max.
[2024-12-20 05:49] LABS: VBG Base Excess 3.7 mmol/L; VBG HCO3 27 mmol/L (22-26); VBG pCO2 37 mmHg; VBG pH 7.47 (7.32-7.43); VBG pO2 57 mmHg
[2024-12-20 06:04] LABS: Venous Blood Gas Refer to POC result
[2024-12-20 06:25] LABS: Basophils Percent Auto 0.1 % (0-2); Hematocrit 32.3 % (37.0-47.0); Hemoglobin 10.1 g/dl (12.0-16.0); Imm Gran Abs Auto 0.05 X10*3/uL (0.00-0.03); Imm Gran Pct Auto 0.4 % (0.0-0.4); Lymphocytes Absolute Auto 0.5 X10*3/uL (1.2-4.9); Lymphocytes Percent Auto 4.7 % (20-40); MANUAL DIFF FLAG SCAN; Mean Corpuscular HGB Conc 31.3 g/dl (31.0-35.0); Mean Corpuscular Hemoglobin 30.2 pg (27.0-33.0); Mean Corpuscular Volume 96.7 fL (80.0-98.0); Mean Platelet Volume 11.1 fL (9.4-12.3); Monocytes Absolute Auto 0.1 X10*3/uL (0.1-1.2); Monocytes Percent Auto 1.2 % (2-11); NRBC Pct Auto 0.4 /100WBC (0.0-0.2); Neutrophils Absolute Auto 10.4 x10*3/uL (2.0-8.3); Neutrophils Percent Auto 93.6 % (45-73); Platelet Count 355 X10*3/uL (160-400); Red Blood Count 3.34 X10*6/uL (4.20-5.50); Red Cell Distribution Width 16.9 % (11.0-16.0); SCAN SMEAR FLAG 1; White Blood Count 11.2 X10*3/uL (4.8-10.8)
[2024-12-20 06:27] LABS: Alanine Aminotransferase 14 U/L (0-31); Albumin Level 3.5 g/dL (3.5-5.0); Alkaline Phosphatase 103 U/L (39-117); Anion Gap 21 (12-20); Aspartate Amino Transferase 39 U/L (5-31); Bilirubin Total 0.3 mg/dL (0.0-1.0); Blood Urea Nitrogen 42 mg/dL (9-16); Calcium 9.5 mg/dL (8.4-10.2); Carbon Dioxide 24 mmol/L (22-29); Chloride 99 mmol/L (96-108); Creatinine Clr Calc Pharmacy 11.1; Estimated Glomerular Filt Rate 11; Glucose Random 163 mg/dL (60-115); Magnesium 2.6 mg/dL (1.6-2.6); Phosphorus 4.3 mg/dL (2.7-4.5); Potassium 3.5 mmol/L (3.3-5.1); Sodium 140 mmol/L (135-145); Total Protein 6.9 g/dL (6.5-8.0)
[2024-12-20] MEDS: methylPREDNISolone Sod Succ 40 MG/ML VIAL IVPUSH ×2 (06:57→19:47)
[2024-12-20 07:33] LABS: SLIDE REVIEW VERIFIED
[2024-12-20] MEDS: levETIRAcetam in NaCl (iso-os) 1,000 MG/100 ML PIGGYBACK 400 MG IV ×2 (08:28→20:02)
[2024-12-20] MEDS: Chlorhexidine Gluc Oral Rinse 15 ML MOUTHWASH BUCCAL ×3 (08:28→20:02)
--- NOTE | 2024-12-20 08:40 | PM.CCPN ---
Subjective Subjective Date of Service: 12/20/24 Interval History: No new events, has some bloody secretions through the ET tube in lines sections On Precedex so far anxiolysis and sedation Critical Care Time (minutes): 35 Physical Exam Vital Signs: Vital Signs: Last Vital Signs Temp 98.2 F 12/20/24 08:00 Pulse 99 12/20/24 08:00 Resp 20 12/20/24 08:00 BP 142/82 H 12/20/24 08:00 Pulse Ox 97 12/20/24 08:00 O2 Del Method Mechanical Ventil ation 12/20/24 08:00 O2 Flow Rate 40 12/18/24 10:06 FiO2 25 12/20/24 08:00 Oxygen Flow Rate 2 12/18/24 04:35 BMI result Body Mass Index 18.7 General: Middle-aged lady, severely malnourished in acute distress Nutritional Appearance: Poorly nourished and underweight Eyes: appearance normal, both eyes and all related structures; Alignment and Position: alignment normal and position normal Neck: No lymphadenopathy, no thyromegaly Resp: bilateral air entry equal, occasional added sounds present Cardio: Regular rate, regular rhythm; Heart sounds: S1 normal heart sound present and S2 normal heart sound present GI: soft, nontender, no guarding, no hepatosplenomegaly : bladder normal to inspection, bladder normal to palpation, no renal angle tenderness Skin: no rashes or lesions noted and elasticity normal Neuro: Detailed neurological examination not possible as patient is unresponsive on Precedex Objective Data Labs 12/20/24 05:40 12/20/24 05:40 Labs: Laboratory Results - last 24 hr 12/20/24 12/20/24 05:40 05:44 WBC 11.2 H RBC 3.34 L Hgb 10.1 L Hct 32.3 L MCV 96.7 MCH 30.2 MCHC 31.3 RDW 16.9 H Plt Count 355 MPV 11.1 Immature Gran % (Auto) 0.4 Neut % (Auto) 93.6 H Lymph % (Auto) 4.7 L [place] % (Auto) 1.2 L Eos % (Auto) 0.0 Baso % (Auto) 0.1 Lymph # (Auto) 0.5 L [place] # (Auto) 0.1 Eos # (Auto) 0.0 Baso # (Auto) 0.0 Abs Immat Gran (auto) 0.05 H Absolute Neuts (auto) 10.4 H Absolute Nucleated RBC 0.050 H Nucleated RBC % (auto) 0.4 H Smear Tech's Comments VERIFIED VBG pH 7.47 H VBG pCO2 37 VBG pO2 57 VBG HCO3 27 H VBG O2 Saturation 85.0 VBG Base Excess 3.7 Sodium 140 Potassium 3.5 Chloride 99 Carbon Dioxide 24 Anion Gap 21 H BUN 42 H Creatinine 4.20 H* Estim Creat Clear Calc 11.1 Estimated GFR 11 Random Glucose 163 H Calcium 9.5 D Phosphorus 4.3 Magnesium 2.6 Total Bilirubin 0.3 AST 39 H ALT 14 Alkaline Phosphatase 103 Total Protein 6.9 Albumin 3.5 Microbiology Microbiology Results: Microbiology 12/18/24 08:11 Blood - Venous Blood Culture - Preliminary No growth after 24 hours. 12/18/24 08:11 Blood - Venous Blood Culture - Preliminary No growth after 24 hours. Progress Note: A&P Assessment and plan (1) Hypertensive urgency: Status: Acute (2) ESRD (end stage renal disease): Status: Acute (3) Acute encephalopathy: Status: Acute (4) Acute respiratory failure: Status: Acute Plan Neuro: Acute encephalopathy possibly due to drug overdose versus status epilepticus Patient has a history of IV drug abuse but unable to get a urinary drug screen as patient is anuric On Precedex for anxiolysis and sedation On Keppra for the management of seizures, no active seizure Close neurological status monitoring in the ICU every hour Cardiac: Hypertensive urgency: Currently on nicardipine drip at 5mg/hr for the management of Respiratory: Acute hypoxemic respiratory failure due to aspiration pneumonia There was some subcutaneous air noted around the trachea post intubation, she also had significant airway edema prior to intubation so she has a smaller sized ET tube 6. Currently on ventilator support On PRVC mode FiO2 40%, PEEP 5, TV 3 6, RR 18, we will place the patient on pressor support if she does well we will get the weaning parameters. Peak pressures and plateau pressures are under the curve Ventilator management bundle with head end elevation, aspiration precaution, chlorhexidine mouthwash, daily awakening trials, daily spontaneous breathing trials GI: Continue tube feeds Renal: End-stage renal disease: On maintenance hemodialysis MWF schedule We will closely monitor I's and O's Avoid nephrotoxic medications Heme: Chronic anemia, closely monitor H&H, transfuse for hemoglobin less than 7 grams/deciliter Endocrine: Blood sugars under control Sliding scale insulin as needed Infectious disease: negative pancultures On ampicillin sulbactam Musculoskeletal: Decubitus ulcer prevention protocol Lines: HD line Prophylaxis: heparin, pantoprazole Quality Stroke Does the patient have a stroke diagnosis?: No VTE Prior VTE?: No VTE Risk Level:: Medical - moderate - high VTE Device Contraindication: Treatment Not Indicated VTE Drug Contraindication: N/A - Med Ordered
[2024-12-20] MEDS: Famotidine/PF 20 MG/2 ML VIAL IVPUSH (10:06)
--- NOTE | 2024-12-20 10:16 | MHC.CLN ---
F/U PATIENT IS INTUBATED AND SEDATED DISCUSSED AT ROUNDS WITH MD RECEIVED TUBE FEEDING NEPRO AT 25 ML/HOUR AND FREE WATER FLUSHES 120 ML Q 6 HOURS. PROVIDES 1381 KCALS WITH SEDATION (30.4 KCALS/KG IBW), 48.6 G PROTEIN (1.07 G/KG IBW), TOTAL FREE WATER FROM FORMULA AND FLUSHES 916 ML (20.1 ML/KG IBW) PROPOFOL TURNED OFF AND SWITCHED TO PRECEDEX RECOMMEND INCREASING TF TO NEPRO AT MAX GAOL RATE 30ML/HR WITH 120ML FREE WATER Q 6 HRS TO PROVIDE 1296KCALS (30KCALS/KG), 58G PROTEIN (1.3G/KG) 1003ML TOTAL FREE WATER FROM FORMULA AND FLUSHES (23ML/KG) MONITOR TOLERANCE AND LYTES TF WILL PROMOTE WOUND HEALING WITH INCREASED PO PROTEIN
[2024-12-20] MEDS: dexmedeTOMIDine HCL/NS 400 MCG/100 ML PLAST..BAG 10.83 MCG IVCONT (13:54)
--- NOTE | 2024-12-20 14:19 | MHC.CM.PN ---
Pt continues on ventilatory support in ICU: Plan is for continuation of PSV trials in anticipation of extubation and hemodialysis today. Pt should have a CARE team consult for ongoing substance use once medically stable. CM to follow for finalization of d/c planning:
[2024-12-20] MEDS: Ampicillin Sodium/Sulbactam Na 3 GM in 0.9 % Sodium Chloride 100 ML IV (17:28)
[2024-12-20] MEDS: dexmedeTOMIDine HCL/NS 400 MCG/100 ML PLAST..BAG 15.16 MCG IVCONT (21:16)
[2024-12-20] MEDS: hydrALAZINE HCl 25 MG TABLET 75 MG PO (21:39)
[2024-12-20] MEDS: carvediloL 12.5 MG TABLET PO (21:39)
[2024-12-21] VITALS (39 sets, daily range): BP systolic 110–180; BP diastolic 35–118; PULSE 60–105; RESP 12–29; TEMP 35–36.9; O2SAT 96–100; BMI 18.9
[2024-12-21] MEDS: dexmedeTOMIDine HCL/NS 400 MCG/100 ML PLAST..BAG 16.24 MCG IVCONT ×2 (02:59→08:51)
[2024-12-21 03:36] LABS: VBG Base Excess 2.7 mmol/L; VBG HCO3 26 mmol/L (22-26); VBG pCO2 39 mmHg; VBG pH 7.44 (7.32-7.43); VBG pO2 64 mmHg
[2024-12-21 03:52] LABS: Basophils Percent Auto 0.1 % (0-2); Hematocrit 28.6 % (37.0-47.0); Hemoglobin 9.2 g/dl (12.0-16.0); Imm Gran Abs Auto 0.12 X10*3/uL (0.00-0.03); Imm Gran Pct Auto 1.2 % (0.0-0.4); Lymphocytes Absolute Auto 0.5 X10*3/uL (1.2-4.9); Lymphocytes Percent Auto 5.1 % (20-40); MANUAL DIFF FLAG SCAN; Mean Corpuscular HGB Conc 32.2 g/dl (31.0-35.0); Mean Corpuscular Hemoglobin 30.9 pg (27.0-33.0); Mean Platelet Volume 10.8 fL (9.4-12.3); Monocytes Absolute Auto 0.2 X10*3/uL (0.1-1.2); NRBC Pct Auto 0.6 /100WBC (0.0-0.2); Neutrophils Absolute Auto 8.8 x10*3/uL (2.0-8.3); Neutrophils Percent Auto 91.6 % (45-73); Platelet Count 261 X10*3/uL (160-400); Red Blood Count 2.98 X10*6/uL (4.20-5.50); Red Cell Distribution Width 17.1 % (11.0-16.0); SCAN SMEAR FLAG 1; White Blood Count 9.6 X10*3/uL (4.8-10.8)
[2024-12-21 05:03] LABS: Albumin Level 3.3 g/dL (3.5-5.0); Anion Gap 17 (12-20); Blood Urea Nitrogen 65 mg/dL (9-16); Calcium 9.4 mg/dL (8.4-10.2); Carbon Dioxide 25 mmol/L (22-29); Chloride 102 mmol/L (96-108); Creatinine Clr Calc Pharmacy 8.2; Estimated Glomerular Filt Rate 8; Glucose Random 162 mg/dL (60-115); Magnesium 2.8 mg/dL (1.6-2.6); Potassium 3.8 mmol/L (3.3-5.1); Sodium 140 mmol/L (135-145)
[2024-12-21 05:44] LABS: SLIDE REVIEW VERIFIED
[2024-12-21 06:31] LABS: Venous Blood Gas Refer to POC result
--- NOTE | 2024-12-21 08:37 | P.PNCC_ITS ---
Subjective Subjective Date of Service: 12/21/24 Interval History: On ventilator support, undergoing hemodialysis this morning Critical Care Time (minutes): 35 Physical Exam 2 Vital Signs: Vital Signs: Last Vital Signs Temp 97.0 F 12/21/24 08:00 Pulse 72 12/21/24 08:00 Resp 18 12/21/24 08:00 BP 159/96 H 12/21/24 08:00 Pulse Ox 96 12/21/24 08:00 O2 Del Method Mechanical Ventil ation 12/21/24 08:00 O2 Flow Rate 40 12/18/24 10:06 FiO2 25 12/21/24 08:00 Oxygen Flow Rate 2 12/18/24 04:35 BMI result Body Mass Index 18.9 General: Middle-aged poorly built and emaciated lady in acute distress acute distress, ill appearing and tired appearing Nutritional Appearance: Under nourished and underweight Eyes: appearance normal, both eyes and all related structures; Alignment and Position: alignment normal and position normal Neck: No lymphadenopathy, no thyromegaly Resp: bilateral air entry equal, occasional added sounds present Cardio: Regular rate, regular rhythm; Heart sounds: S1 normal heart sound present and S2 normal heart sound present GI: soft, nontender, no guarding, no hepatosplenomegaly : bladder normal to inspection, bladder normal to palpation, no renal angle tenderness Skin: no rashes or lesions noted and elasticity normal Neuro: Spontaneous movements present, no focal deficits Objective Data Labs 12/21/24 03:15 12/21/24 03:15 Labs: Laboratory Results - last 24 hr 12/21/24 12/21/24 03:15 03:32 WBC 9.6 RBC 2.98 L Hgb 9.2 L Hct 28.6 L MCV 96.0 MCH 30.9 MCHC 32.2 RDW 17.1 H Plt Count 261 D MPV 10.8 Immature Gran % (Auto) 1.2 H Neut % (Auto) 91.6 H Lymph % (Auto) 5.1 L [place] % (Auto) 2.0 Eos % (Auto) 0.0 Baso % (Auto) 0.1 Lymph # (Auto) 0.5 L [place] # (Auto) 0.2 Eos # (Auto) 0.0 Baso # (Auto) 0.0 Abs Immat Gran (auto) 0.12 H Absolute Neuts (auto) 8.8 H Absolute Nucleated RBC 0.060 H Nucleated RBC % (auto) 0.6 H Smear Tech's Comments VERIFIED VBG pH 7.44 H VBG pCO2 39 VBG pO2 64 VBG HCO3 26 VBG O2 Saturation 89.0 VBG Base Excess 2.7 Sodium 140 Potassium 3.8 Chloride 102 Carbon Dioxide 25 Anion Gap 17 BUN 65 H Creatinine 5.67 H* Estim Creat Clear Calc 8.2 Estimated GFR 8 Random Glucose 162 H Calcium 9.4 Phosphorus 5.0 H Magnesium 2.8 H Albumin 3.3 L Microbiology Microbiology Results: Microbiology 12/18/24 08:11 Blood - Venous Blood Culture - Preliminary No growth after 48 hours. 12/18/24 08:11 Blood - Venous Blood Culture - Preliminary No growth after 48 hours. Progress Note: A&P Assessment and plan (1) Drug abuse: Status: Acute (2) Hypertensive urgency: Status: Acute (3) Acute hyperkalemia: Status: Acute (4) ESRD (end stage renal disease): Status: Acute (5) Acute respiratory failure: Status: Acute Plan Neuro: Acute encephalopathy possibly due to drug overdose versus status epilepticus. She is on methadone for opiod abuse Patient has a history of IV drug abuse but unable to get a urinary drug screen as patient is anuric On Precedex for anxiolysis to assist with wean from ventilator On Keppra for the management of seizures, no active seizure; did not follow up with neurology after discharge from hospital. Close neurological status monitoring in the ICU every hour Cardiac: Hypertensive urgency: Currently on nicardipine drip at 5mg/hr for the management of hypertensive urgency, possibly we will be able to take it off after dialysis today Respiratory: Acute hypoxemic respiratory failure due to aspiration pneumonia There was some subcutaneous air noted around the trachea post intubation, she also had significant airway edema prior to intubation so she has a smaller sized ET tube 6. Currently on ventilator support On PRVC mode FiO2 40%, PEEP 5, TV 3 6, RR 18, failed weaning trials yesterday due to low vital capacity, we will place the patient back on pressure support trials today Peak pressures and plateau pressures are under the curve Ventilator management bundle with head end elevation, aspiration precaution, chlorhexidine mouthwash, daily awakening trials, daily spontaneous breathing trials GI: Continue tube feeds Renal: End-stage renal disease: On maintenance hemodialysis MWF schedule, received HD this morning We will closely monitor I's and O's Avoid nephrotoxic medications Heme: Chronic anemia, closely monitor H&H, transfuse for hemoglobin less than 7 grams/deciliter Endocrine: Blood sugars under control Sliding scale insulin as needed Infectious disease: negative pancultures On ampicillin sulbactam Musculoskeletal: Decubitus ulcer prevention protocol Lines: HD line Prophylaxis: heparin, pantoprazole Critical care time spent is about 45 mins on vent management, weaning from vent, management of hypertensive urgency, hemodynamic stability during hemodialysis, sedation management and this time is excluding any procedural time Quality Stroke Does the patient have a stroke diagnosis?: No VTE Prior VTE?: No VTE Risk Level:: Medical - moderate - high VTE Device Contraindication: Treatment Not Indicated VTE Drug Contraindication: N/A - Med Ordered
[2024-12-21] MEDS: carvediloL 12.5 MG TABLET PO (08:46)
[2024-12-21] MEDS: Chlorhexidine Gluc Oral Rinse 15 ML MOUTHWASH BUCCAL (08:46)
[2024-12-21] MEDS: methylPREDNISolone Sod Succ 40 MG/ML VIAL IVPUSH ×2 (08:46→20:18)
[2024-12-21] MEDS: levETIRAcetam in NaCl (iso-os) 1,000 MG/100 ML PIGGYBACK 400 MG IV ×2 (08:47→20:18)
[2024-12-21] MEDS: hydrALAZINE HCl 25 MG TABLET 75 MG PO (09:10)
--- NOTE | 2024-12-21 10:05 | PC.RT ---
Pt switched to PSV settings this am 0725 to 12/5 21%. Pt ruthie well, settings titrated down to 5/5 21% over 2 hours. Pt had positive cuff leak checked at 0955 with vent check completed per titrated settings. MD stated to assess pt over next 30 minutes and extubate. At approx 1002 am, RT heard staff yell out from room she pulled it . Upon RT arrival into room, ETT was half pulled out and in pt hand. RT okayed w/ MD and cuff was deflated and ETT was pulled out fully completing extubation. Pt SATs >96% on RA, no stridor auscultated. Pt still under sedation and not speaking. Will continue to monitor pt. Extubation order placed per MD, however this was a pt self extubation.
--- NOTE | 2024-12-21 10:44 | MHC.CLN ---
Addendum entered by Kajal Champagne, JULIAN 12/21/24 10:47: PT SELF EXTUBATED APPROX 10AM IF DIET TO START; RECOMMEND 2GM NA LOW PHOS, LOW K+ IN ADDITION TO ANY DIET CONSISTENCY PER MANAGER BUSINESS INFORMATION IF NEEDED FOLLOWING WITH TEAM Original Note: F/U PATIENT REMAINS INTUBATED DISCUSSED AT ROUNDS WITH MD RECEIVING TF NEPRO AT MAX GAOL RATE 30ML/HR WITH 120ML FREE WATER Q 6 HRS PROVIDES 1296KCALS (30KCALS/KG), 58G PROTEIN (1.3G/KG) 1003ML TOTAL FREE WATER FROM FORMULA AND FLUSHES (23ML/KG) MONITOR TOLERANCE AND LYTES TF WILL PROMOTE WOUND HEALING WITH INCREASED PO PROTEIN PLAN FOR POSSIBLE EXTUBATION TODAY IF DIET TO START; RECOMMEND 2GM NA LOW PHOS, LOW K+ IN ADDITION TO ANY DIET CONSISTENCY PER MANAGER BUSINESS INFORMATION IF NEEDED
--- NOTE | 2024-12-21 12:44 | HE.PHANOTE ---
Re Methadone Received verification from nursing. The patient was getting 50mg from [facility] in [place] and has her [employer] take home bottles, She got 7 bottles on 12/14/24 and last took a dose on 12/17/24.
[2024-12-21] MEDS: niCARdipine HCL 25 MG in 0.9 % Sodium Chloride 240 ML 50 MG IVCONT (14:36)
--- NOTE | 2024-12-21 15:24 | MHC.CM.PN ---
Pt continues care in ICU: extubated and on room air: HD today: pt will need to see CARE team for continued substance use before d/c. CM to meet with pt on 12/22 to review d/c planning needs.
[2024-12-21] MEDS: Ampicillin Sodium/Sulbactam Na 3 GM in 0.9 % Sodium Chloride 100 ML IV (17:09)
--- NOTE | 2024-12-21 17:32 | PC.NURSE ---
P: Alteration in Cardiac Function I: See nursing documentation and MD orders E: Patient on Nicardipine drip to maintain SBP goal. GTT titrated with positive affect. See nursing flow sheets P: Alteration in Respiratory Function I: See nursing documentation and MD orders E: Patient on AC/VC vent settings and transitioned to PSV with positive affect. Sedation weaned down for extubation with positive affect. Patient had positive cuff leak; order to extubate. Patient self extubated; Dr Rivera at bedside, RT at bedside, no signs of respiratory distress noted. Patient on room air and resting comfortably
[2024-12-21] MEDS: niCARdipine HCL 25 MG in 0.9 % Sodium Chloride 240 ML 75 MG IVCONT ×2 (18:04→21:05)
[2024-12-22] VITALS (30 sets, daily range): BP systolic 120–172; BP diastolic 77–108; PULSE 62–102; RESP 12–29; TEMP 36.2–37.6; O2SAT 95–99; BMI 20.9; BMI 18.6
[2024-12-22] MEDS: niCARdipine HCL 25 MG in 0.9 % Sodium Chloride 240 ML 30 MG IVCONT (00:57)
--- NOTE | 2024-12-22 03:15 | PC.NURSE ---
CARE ASSUMED 7PM..AWAKE SPONTANEOUSLY..TRACKS SPEAKER...PUPILS REMAIN DILATED..PROVIDER AWARE..NON-VERBAL...FOLLOWS SIMPLE COMMANDS BUT INCONSISTANTLY...OPENED MOUTH TO COMMAND..NO TONGUE OR MOUTH SWELLING NOTED..MELLO BUT NOT TO COMMAND...UNABLE OR UNWILLING TO TAKE PO INTAKE..HS PO MEDS HELD..PROVIDER AWARE...NSR HR 90'S..NICARDIPINE DRIP TITRATED PER MAR....SBP GOAL <160 PER PROVIDER..CURRENTLY NICARDIPINE DRIP 5 MG/HR..BP 141/91..SAO2 97% ON ROOM AIR..NO DISTRESS..NO STRIDOR..SHAKES HEAD NO TO PAIN.. YES TO COMFTORABLE..ANURIC..RECEIVED DIALYSIS 12/21 AM..HEMODIALYSIS CATHETER TO RIGHT CHEST AND TLC TO LEFT IJ SITES INTACT
[2024-12-22] MEDS: niCARdipine HCL 25 MG in 0.9 % Sodium Chloride 240 ML 50 MG IVCONT ×2 (05:15→10:09)
[2024-12-22 05:18] LABS: VBG Base Excess 0.5 mmol/L; VBG HCO3 23 mmol/L (22-26); VBG pCO2 30 mmHg; VBG pH 7.48 (7.32-7.43); VBG pO2 77 mmHg
[2024-12-22 05:54] LABS: Venous Blood Gas Refer to POC result
[2024-12-22 06:01] LABS: Basophils Percent Auto 0.2 % (0-2); Hematocrit 35.2 % (37.0-47.0); Hemoglobin 11.4 g/dl (12.0-16.0); Imm Gran Abs Auto 0.19 X10*3/uL (0.00-0.03); Imm Gran Pct Auto 1.5 % (0.0-0.4); Lymphocytes Absolute Auto 0.7 X10*3/uL (1.2-4.9); Lymphocytes Percent Auto 5.4 % (20-40); MANUAL DIFF FLAG SCAN; Mean Corpuscular HGB Conc 32.4 g/dl (31.0-35.0); Mean Corpuscular Hemoglobin 30.7 pg (27.0-33.0); Mean Corpuscular Volume 94.9 fL (80.0-98.0); Mean Platelet Volume 11.1 fL (9.4-12.3); Monocytes Absolute Auto 0.3 X10*3/uL (0.1-1.2); Monocytes Percent Auto 2.4 % (2-11); NRBC Pct Auto 0.6 /100WBC (0.0-0.2); Neutrophils Absolute Auto 11.2 x10*3/uL (2.0-8.3); Neutrophils Percent Auto 90.5 % (45-73); Platelet Count 368 X10*3/uL (160-400); Red Blood Count 3.71 X10*6/uL (4.20-5.50); Red Cell Distribution Width 18.2 % (11.0-16.0); SCAN SMEAR FLAG 1; White Blood Count 12.3 X10*3/uL (4.8-10.8)
[2024-12-22 06:20] LABS: SLIDE REVIEW VERIFIED
[2024-12-22 06:35] LABS: Albumin Level 3.7 g/dL (3.5-5.0); Anion Gap 19 (12-20); Blood Urea Nitrogen 55 mg/dL (9-16); Calcium 9.8 mg/dL (8.4-10.2); Carbon Dioxide 23 mmol/L (22-29); Chloride 103 mmol/L (96-108); Creatinine Clr Calc Pharmacy 11.3; Estimated Glomerular Filt Rate 11; Glucose Random 113 mg/dL (60-115); Magnesium 2.4 mg/dL (1.6-2.6); Phosphorus 4.2 mg/dL (2.7-4.5); Potassium 3.4 mmol/L (3.3-5.1); Sodium 142 mmol/L (135-145)
[2024-12-22] MEDS: levETIRAcetam in NaCl (iso-os) 1,000 MG/100 ML PIGGYBACK 400 MG IV ×2 (07:52→21:11)
[2024-12-22] MEDS: Potassium Chloride/H20 20 MEQ/100 ML PIGGYBACK 100 MEQ IV (07:52)
[2024-12-22] MEDS: methylPREDNISolone Sod Succ 40 MG/ML VIAL IVPUSH ×2 (07:52→19:37)
--- NOTE | 2024-12-22 09:08 | P.PNCC_ITS ---
Subjective Subjective Date of Service: 12/22/24 Interval History: extubated yesterday doing well on room air Critical Care Time (minutes): 35 Physical Exam 2 Vital Signs: Vital Signs: Last Vital Signs Temp 98.0 F 12/22/24 08:00 Pulse 98 12/22/24 09:00 Resp 15 12/22/24 09:00 BP 146/88 H 12/22/24 09:00 Pulse Ox 99 12/22/24 09:00 O2 Del Method Room Air 12/22/24 09:00 O2 Flow Rate 40 12/18/24 10:06 FiO2 25 12/21/24 09:57 Oxygen Flow Rate 2 12/18/24 04:35 BMI result Body Mass Index 20.9 General: Middle-aged female, emaciated, not in acute distress, lying in the bed comfortably Nutritional Appearance: well nourished and overweight Eyes: appearance normal, both eyes and all related structures; Alignment and Position: alignment normal and position normal Neck: No lymphadenopathy, no thyromegaly Resp: bilateral air entry equal, occasional added sounds present Cardio: Regular rate, regular rhythm; Heart sounds: S1 normal heart sound present and S2 normal heart sound present GI: soft, nontender, no guarding, no hepatosplenomegaly : bladder normal to inspection, bladder normal to palpation, no renal angle tenderness Skin: no rashes or lesions noted and elasticity normal Neuro: Speaks only a few words, moves all extremities Objective Data Labs 12/22/24 05:15 12/22/24 05:15 Labs: Laboratory Results - last 24 hr 12/22/24 12/22/24 05:12 05:15 WBC 12.3 H RBC 3.71 L D Hgb 11.4 L D Hct 35.2 L D MCV 94.9 MCH 30.7 MCHC 32.4 RDW 18.2 H Plt Count 368 D MPV 11.1 Immature Gran % (Auto) 1.5 H Neut % (Auto) 90.5 H Lymph % (Auto) 5.4 L [place] % (Auto) 2.4 Eos % (Auto) 0.0 Baso % (Auto) 0.2 Lymph # (Auto) 0.7 L [place] # (Auto) 0.3 Eos # (Auto) 0.0 Baso # (Auto) 0.0 Abs Immat Gran (auto) 0.19 H Absolute Neuts (auto) 11.2 H Absolute Nucleated RBC 0.080 H Nucleated RBC % (auto) 0.6 H Smear Tech's Comments VERIFIED VBG pH 7.48 H VBG pCO2 30 VBG pO2 77 VBG HCO3 23 VBG O2 Saturation 97.0 VBG Base Excess 0.5 Sodium 142 Potassium 3.4 Chloride 103 Carbon Dioxide 23 Anion Gap 19 BUN 55 H Creatinine 4.30 H* Estim Creat Clear Calc 11.3 Estimated GFR 11 Random Glucose 113 Calcium 9.8 Phosphorus 4.2 Magnesium 2.4 Albumin 3.7 Microbiology Microbiology Results: Microbiology 12/18/24 08:11 Blood - Venous Blood Culture - Preliminary No growth after 48 hours. 12/18/24 08:11 Blood - Venous Blood Culture - Preliminary No growth after 48 hours. Progress Note: A&P Assessment and plan (1) Drug abuse: Status: Acute (2) Hypertensive urgency: Status: Acute (3) ESRD (end stage renal disease): Status: Acute (4) Acute anemia: Status: Acute (5) Encephalopathy, hypertensive: Status: Acute (6) Acute encephalopathy: Status: Acute (7) Status epilepticus: Status: Acute (8) Acute respiratory failure: Status: Acute Plan Neuro: Acute encephalopathy possibly due to drug withdrawal vs post ictal state Patient has a history of IV drug abuse but unable to get a urinary drug screen as patient is anuric On Keppra for the management of seizures, no active seizure; did not follow up with neurology after discharge from hospital. Cardiac: Hypertensive urgency: Currently on nicardipine drip at 5mg/hr for the management of hypertensive urgency, unable to take any medications orally Respiratory: extubated yesterday tolerating liberation from vent well, sats normal on room air will stop solumedrol GI: NPO pending speech eval Renal: End-stage renal disease: On maintenance hemodialysis MWF schedule, received HD yesterday We will closely monitor I's and O's Avoid nephrotoxic medications Heme: Chronic anemia, closely monitor H&H, transfuse for hemoglobin less than 7 grams/deciliter Endocrine: Blood sugars under control Sliding scale insulin as needed Infectious disease: negative pancultures On empiric ampicillin sulbactam Musculoskeletal: Decubitus ulcer prevention protocol Lines: HD line left IJ TLC will take out Prophylaxis: heparin, pantoprazole Quality Stroke Does the patient have a stroke diagnosis?: No VTE Prior VTE?: No VTE Risk Level:: Medical - moderate - high VTE Device Contraindication: Treatment Not Indicated VTE Drug Contraindication: N/A - Med Ordered
[2024-12-22] MEDS: Famotidine/PF 20 MG/2 ML VIAL IVPUSH (11:44)
[2024-12-22] MEDS: cloNIDine HCL 0.1 MG TABLET PO ×2 (11:57→19:37)
[2024-12-22] MEDS: carvediloL 12.5 MG TABLET PO ×2 (11:57→19:37)
[2024-12-22] MEDS: methADONE HCl 20 MG/2 ML ORAL.CONC 50 MG PO (11:58)
[2024-12-22] MEDS: hydrALAZINE HCl 25 MG TABLET 75 MG PO ×2 (11:58→19:37)
--- NOTE | 2024-12-22 13:24 | MHC.CM.PN ---
Pt remains in ICU: confused, requires redirection - plan is to monitor an additional day then transfer to the medical floor for continued care and HD. Pt resides w/roommate and attends [facility] in [place] on , , . She has home delivery Methadone via [facility]. CM to follow.
[2024-12-22] MEDS: amLODIPine Besylate 10 MG TABLET PO (13:30)
--- NOTE | 2024-12-22 16:22 | P.CONNP_ITS ---
History of Present Illness Reason for Consult Consult date: 12/22/24 Chief Complaint Chief complaint: AMS History of Present Illness Narrative: ANNEMARIE consulted for management of ESRD and HD Info obtained from EHR as PT confused Events of her adm noted HD 12/21 BP remains elevated and now on IV Nicardipine Review of Systems Review of Systems No unobtainable due to endotracheal tube, Unobtainable due to mental condition or Unobtainable due to mental status PMFSH Past Medical History Medical History (Updated 12/19/24 @ 11:26 by Parth Rivera MD) ESRD (end stage renal disease) Clostridioides difficile diarrhea Traumatic hematoma of left upper arm Seizure Opioid use disorder Hypertension, uncontrolled Anemia due to chronic kidney disease ESRD (end stage renal disease) on dialysis Medical non-compliance Norovirus Anemia HTN (hypertension) Drug abuse Social History Social History Household Members: Unknown / Unable to assess Household Members Other:: rommmate Housing: Apartment Unable to assess alcohol history related to: Unknown Alcohol intake: unknown Comment: pt in HD Patient Tobacco Use Status: Former Tobacco user Frequency of e-Cigarette/Vaping Use: unknown Use of substances other than those prescribed or required for medical reasons: Unable to respond Substance Use Type: Heroin Currently Displaying Signs/Symptoms of Drug Intoxication Withdrawal: No Spiritual Healthcare Practices: unknown, unable to assess Advance Directives: Yes Advance Directives Information Provided: No Advance Directives on File: Yes Advance Directives Date on File: 09/25/24 Do you have a plan to hurt others: Vague Recently lost weight without trying: Unsure Eating poorly because of decreased appetite: Yes Nutrition Risks: Anorexia Poor oral hygiene: Yes service: No Meds Allergies Allergy/AdvReac Type Severity Reaction Status Date / Time No Known Allergies Allergy Verified 12/18/24 04:49 Active Medications: Current Medications Amlodipine Besylate (Amlodipine Besylate 10 Mg Tablet) 10 mg PO DAILY [facility]; Protocol Last Admin: 12/22/24 13:30 Dose: 10 mg Carvedilol (Carvedilol 12.5 Mg Tablet) 12.5 mg PO BID [facility]; Protocol Last Admin: 12/22/24 11:57 Dose: 12.5 mg Clonidine HCl (Clonidine Hcl 0.1 Mg Tablet) 0.1 mg PO BID [facility]; Protocol Last Admin: 12/22/24 11:57 Dose: 0.1 mg Famotidine (Famotidine/Pf 20 Mg/2 Ml Vial) 20 mg IVPUSH Q48H [facility] Last Admin: 12/22/24 11:44 Dose: 20 mg Heparin Sodium (Porcine) (Heparin Sodium,Porcine 5,000 Unit/Ml Vial) 5,000 unit SUBCUT Q12H [facility] Last Admin: 12/20/24 08:32 Dose: Not Given Hydralazine HCl (Hydralazine Hcl 25 Mg Tablet) 75 mg PO TID [facility]; Protocol Last Admin: 12/22/24 14:38 Dose: Not Given Levetiracetam (Keppra) 1,000 mg in 100 mls @ 400 mls/hr IV Q12H [facility] Last Infusion: 12/22/24 08:12 Dose: Infused Ampicillin Sodium/Sulbactam (Sodium 3 gm/ Sodium Chloride) 100 mls @ 200 mls/hr IV Q24H [facility] Last Infusion: 12/21/24 17:41 Dose: Infused Methadone HCl (Methadone Hcl 20 Mg/2 Ml Oral.Conc) 50 mg PO DAILY@0800 [facility] Last Admin: 12/22/24 11:58 Dose: 50 mg Methylprednisolone Sodium Succinate (Methylprednisolone Sod Succ 40 Mg/Ml Vial) 40 mg IVPUSH Q12H [facility] Last Admin: 12/22/24 07:52 Dose: 40 mg Home Medications ?Medication ?Instructions ?Recorded ?Confirmed ?Last Taken ?Type sevelamer carbonate 800 mg tablet 800 mg PO TIDWM 09/24/24 12/18/24 11/29/24 History sodium zirconium cyclosilicate 10 10 g PO SUTUTHSA 09/24/24 12/18/24 11/28/24 History gram oral powder packet (Lokelma) Physical Exam Vital Signs: Last Vital Signs Temp 97.1 F 12/22/24 15:52 Pulse 67 12/22/24 15:53 Resp 12 12/22/24 15:52 BP 130/88 12/22/24 15:53 Pulse Ox 95 12/22/24 15:52 O2 Del Method Room Air 12/22/24 15:52 O2 Flow Rate 40 12/18/24 10:06 FiO2 25 12/21/24 09:57 Oxygen Flow Rate 2 12/18/24 04:35 BMI result Body Mass Index 20.9 Const General: no acute distress and other (Sedated on ventilatory support) Eyes Sclerae: sclerae normal EOM: EOMs intact bilaterally Neck Neck: Yes no lymphadenopathy, Yes trachea midline and Yes supple Resp Effort & Inspection: normal respiratory effort and no respiratory distress Auscultation: clear to auscultation bilaterally Cardio Rate: regular rate Rhythm: regular rhythm Heart sounds: no gallops, no murmurs and no rubs GI Palpation (GI): Soft to palpation and Other GI palpation findings present ( Nontender) Auscultation: normal bowel sounds Extrem Other: Stigmata of skin popping General: Yes no pedal edema, No clubbing and No cyanosis Results Lab Results 12/22/24 05:15 12/22/24 05:15 Lab results: Chemistry 12/20/24 12/21/24 12/22/24 05:40 03:15 05:15 Sodium 140 140 142 Potassium 3.5 3.8 3.4 Carbon Dioxide 24 25 23 BUN 42 H 65 H 55 H Creatinine 4.20 H* 5.67 H* 4.30 H* Calcium 9.5 D 9.4 9.8 Phosphorus 4.3 5.0 H 4.2 Hematology 12/20/24 12/21/24 12/22/24 05:40 03:15 05:15 WBC 11.2 H 9.6 12.3 H Hgb 10.1 L 9.2 L 11.4 L D Plt Count 355 261 D 368 D Assessment and Plan (1) Drug abuse: Status: Acute (2) Hypertensive urgency: Status: Acute (3) ESRD (end stage renal disease): Status: Acute (4) Acute anemia: Status: Acute (5) Encephalopathy, hypertensive: Status: Acute (6) Acute encephalopathy: Status: Acute (7) Status epilepticus: Status: Acute (8) Acute respiratory failure: Status: Acute Plan 1. ESRD: usu [facility]; cont mwf 2. AMS: multifact and w/u as per ICU team 3. Severe HTN: meds as noted per ICU 4. Renal anemia 5. ID: as per ICU team REC: cont HD mwf; meds as noted; w/u AAMS as per ICU and BP meds as noted and d/w ICU team Procedures Date of Service Date of Service: 12/22/24
--- NOTE | 2024-12-22 17:22 | MHC.SL.SWA ---
Speech Pathologist Impression: Risk of Aspiration Due to: Confusion Dysphasia Diet Status: Chopped Advanced, Thin, pills whole in puree Liquid Consistency and Strategies for Safe Swallow: Liquid Intake Recommendation: Thin Liquid Intake Strategies: Solid Food Consistency: Dietary Recommendations: Chopped/Advanced (NDD3) Additional Modifications to Solid Foods: Oral Medication Intake: Whole with Puree Please contact the pharmacy regarding appropriate crushable or liquid drug formulations that are available whenever modified delivery is recommended. Compensatory Strategies and Precautions to be Taken for Safe Swallow: Supervision While Eating and Drinking for Safe Swallow: Total Assistance (1:1) Foods to Avoid: Swallowing Recommended Treatments: Recommendation for Speech: Inpatient Speech Therapy Comment: Patient presents with risk for aspiration secondary to level of confusion, confused responses at times to presentations of both food or liquid, with swallow otherwise WFL. Patient has severe upper extremity weakness secondary to s/p extubation, and currently requires 1-1 assistance with all meals, med administration. Recommend START Chopped/Advanced (NDD3) with THIN liquids, pills whole in puree, all for ease of mastication and administration of meals. TOWER CLEANER will continue to follow, re-assess when ready for diet advancement. MD, RN, RD notified of recommendation in person and by secure text. Frequency/Duration: Date Range for Service Req: Timeline to reassess: Machinery Erector Clinican/Clinical Fellow: No Supervisory Statement: I have reviewed and agree with the student/clinical fellow's documentation: N/A Speech Language Pathologist: Fadia Carbone M.A., [facility]-TOWER CLEANER
[2024-12-22] MEDS: Ampicillin Sodium/Sulbactam Na 3 GM in 0.9 % Sodium Chloride 100 ML IV (17:38)
[2024-12-23] VITALS (7 sets, daily range): BP systolic 166–206; BP diastolic 80–110; PULSE 61–87; RESP 16–18; TEMP 36.1–36.9; O2SAT 95–98; BMI 20.1
[2024-12-23] MEDS: methADONE HCl 20 MG/2 ML ORAL.CONC 50 MG PO (08:32)
[2024-12-23] MEDS: methylPREDNISolone Sod Succ 40 MG/ML VIAL IVPUSH ×2 (08:33→20:20)
--- NOTE | 2024-12-23 08:36 | MHC.CM.PN ---
PCP is documented to be Dr. Judson Hansen.
[2024-12-23] MEDS: levETIRAcetam in NaCl (iso-os) 1,000 MG/100 ML PIGGYBACK 400 MG IV ×2 (10:34→20:23)
[2024-12-23] MEDS: diazePAM 10 MG/2 ML CARTRIDGE 5 MG IVPUSH ×2 (10:45→22:31)
--- NOTE | 2024-12-23 10:55 | MHC.CM.PN ---
Per ROUNDS discussion, Patient is not yet medically cleared for dc (IV ABT, IV Keppra, IV Solu Medrol); Patient will benefit from a PT Eval to assist with disposition and CM will follow.
[2024-12-23 11:06] LABS: MANUAL DIFF FLAG NO
[2024-12-23 11:10] LABS: Basophils Percent Auto 0.1 % (0-2); Hematocrit 37.3 % (37.0-47.0); Hemoglobin 12.3 g/dl (12.0-16.0); Imm Gran Abs Auto 0.18 X10*3/uL (0.00-0.03); Imm Gran Pct Auto 1.9 % (0.0-0.4); Lymphocytes Absolute Auto 0.4 X10*3/uL (1.2-4.9); Lymphocytes Percent Auto 4.2 % (20-40); Mean Corpuscular Hemoglobin 31.4 pg (27.0-33.0); Mean Corpuscular Volume 95.2 fL (80.0-98.0); Monocytes Absolute Auto 0.6 X10*3/uL (0.1-1.2); NRBC Pct Auto 0.6 /100WBC (0.0-0.2); Neutrophils Absolute Auto 8.4 x10*3/uL (2.0-8.3); Neutrophils Percent Auto 87.8 % (45-73); Platelet Count 248 X10*3/uL (160-400); Red Blood Count 3.92 X10*6/uL (4.20-5.50); White Blood Count 9.6 X10*3/uL (4.8-10.8)
[2024-12-23 11:20] LABS: VBG Base Excess 3.2 mmol/L; VBG HCO3 28 mmol/L (22-26); VBG pCO2 45 mmHg; VBG pO2 50 mmHg
[2024-12-23 11:20] LABS: Venous Blood Gas Refer to POC result
[2024-12-23 11:29] LABS: Albumin Level 4.1 g/dL (3.5-5.0); Anion Gap 18 (12-20); Blood Urea Nitrogen 31 mg/dL (9-16); Calcium 9.1 mg/dL (8.4-10.2); Carbon Dioxide 26 mmol/L (22-29); Chloride 100 mmol/L (96-108); Creatinine Clr Calc Pharmacy 18.3; Estimated Glomerular Filt Rate 19; Glucose Random 98 mg/dL (60-115); Magnesium 2.2 mg/dL (1.6-2.6); Potassium 3.5 mmol/L (3.3-5.1); Sodium 140 mmol/L (135-145)
--- NOTE | 2024-12-23 12:25 | P.PNNP_ITS ---
Subjective Subjective Date of Service: 12/23/24 Interval history: extubated - now out of icu doing well on room air Physical Exam 2 Vital Signs: Vital Signs: Last Vital Signs Temp 98.5 F 12/23/24 08:00 Pulse 74 12/23/24 08:00 Resp 17 12/23/24 08:00 BP 206/100 H 12/23/24 08:00 Pulse Ox 98 12/23/24 08:00 O2 Del Method Room Air 12/23/24 08:00 O2 Flow Rate 40 12/18/24 10:06 FiO2 25 12/21/24 09:57 Oxygen Flow Rate 2 12/18/24 04:35 BMI result Body Mass Index 20.1 cvs: s1s2 RS; cta ABd; soft Objective Data Labs 12/23/24 10:59 12/23/24 10:59 Labs: Laboratory Results - last 24 hr 12/23/24 12/23/24 10:59 11:09 WBC 9.6 RBC 3.92 L Hgb 12.3 Hct 37.3 MCV 95.2 MCH 31.4 MCHC 33.0 RDW 19.0 H Plt Count 248 D MPV 10.0 Immature Gran % (Auto) 1.9 H Neut % (Auto) 87.8 H Lymph % (Auto) 4.2 L [place] % (Auto) 6.0 Eos % (Auto) 0.0 Baso % (Auto) 0.1 Lymph # (Auto) 0.4 L [place] # (Auto) 0.6 Eos # (Auto) 0.0 Baso # (Auto) 0.0 Abs Immat Gran (auto) 0.18 H Absolute Neuts (auto) 8.4 H Absolute Nucleated RBC 0.060 H Nucleated RBC % (auto) 0.6 H VBG pH 7.40 VBG pCO2 45 VBG pO2 50 VBG HCO3 28 H VBG O2 Saturation 64.0 VBG Base Excess 3.2 Sodium 140 Potassium 3.5 Chloride 100 Carbon Dioxide 26 Anion Gap 18 BUN 31 H Creatinine 2.67 H Estim Creat Clear Calc 18.3 Estimated GFR 19 Random Glucose 98 Calcium 9.1 D Phosphorus 3.0 Magnesium 2.2 Albumin 4.1 Microbiology Microbiology Results: Microbiology 12/18/24 08:11 Blood - Venous Blood Culture - Final No growth after 5 days. 12/18/24 08:11 Blood - Venous Blood Culture - Final No growth after 5 days. Procedures Date of Service Date of Service: 12/23/24 Assessment & Plan Assessment and plan (1) ESRD (end stage renal disease): Status: Acute Plan 1. ESRD: usu [facility]; cont mwf 2. AMS: multifact and w/u as per ICU team 3. Severe HTN: meds as noted per ICU 4. Renal anemia 5. ID: as per ICU team REC: cont HD mwf; meds as noted; w/u AAMS as per ICU and BP meds changed to clonidine tid and nifedepine to 90mg if needed can increase coreg to 25mg bid Time Spent With Patient Time: Total time managing care of this patient today ____ minutes. Progress Note: Quality Stroke Does the patient have a stroke diagnosis?: No
[2024-12-23] MEDS: hydrALAZINE HCl 50 MG TABLET 100 MG PO ×3 (12:34→20:20)
[2024-12-23] MEDS: carvediloL 12.5 MG TABLET PO ×2 (12:34→20:20)
[2024-12-23] MEDS: NIFEdipine ER 60 MG TAB.ER.24 PO (12:34)
[2024-12-23] MEDS: cloNIDine HCL 0.1 MG TABLET PO ×2 (12:34→20:20)
--- NOTE | 2024-12-23 13:40 | MHC.CLN ---
F/U PT EXTUBATED AND TRANSFERRED TO MEDICAL FLOOR DIET ADVANCED TO CHOPPED PER FACILITIES MAINTENANCE TECHNICIAN PT RECEIVING ENSURE CLEAR TID TO PROVIDE 720KCALS, 24G PROTEIN RECOMMEND CHANGING TO ENSURE PLUS HIGH PROTEIN TO PROMOTE WOUND HEALING SUPP TO PROVIDE 1050KCALS, 60 G PROTEIN MONITOR PO INTAKE AND ENCOURAGE SUPPLEMENT
--- NOTE | 2024-12-23 14:46 | MHC.SL.SWA ---
Speech Pathologist Impression: Risk of aspiration d/t confusion Risk of Aspiration Due to: Confusion, weakness Dysphasia Diet Status: No change Liquid Consistency and Strategies for Safe Swallow: Liquid Intake Recommendation: Thin Liquid Intake Strategies: Small Sips Solid Food Consistency: Dietary Recommendations: Chopped/Advanced (NDD3) Additional Modifications to Solid Foods: Patient presents with risk for aspiration secondary to level of confusion, confused responses at times to presentations of both food or liquid, with swallow otherwise WFL. Patient has severe upper extremity weakness secondary to s/p extubation, and currently requires 1-1 assistance with all meals, med administration. Recommend START Chopped/Advanced (NDD3) with THIN liquids, pills whole in puree, all for ease of mastication and administration of meals. CLEARANCE COORDINATOR will continue to follow, re-assess when ready for diet advancement. Oral Medication Intake: Whole with Puree Please contact the pharmacy regarding appropriate crushable or liquid drug formulations that are available whenever modified delivery is recommended. Compensatory Strategies and Precautions to be Taken for Safe Swallow: Sitting Upright (90 deg) Small Bites and Sips Alternate Liquids/Solids Rate of Ingestion Change Supervision While Eating and Drinking for Safe Swallow: Direct Supervision (1:1) Swallowing Recommended Treatments: Compens. Strategy Educat. Recommendation for Speech: Inpatient Speech Therapy Green Inspector Clinican/Clinical Fellow: No Supervisory Statement: I have reviewed and agree with the student/clinical fellow's documentation: N/A Speech Language Pathologist: Monique Ace M.A., [facility]-CLEARANCE COORDINATOR
--- NOTE | 2024-12-23 15:01 | HO.PM.IMPN ---
Subjective Subjective Date of Service: 12/23/24 Interval History: seen and evaluated this morning in Dialysis unit was doing fairly ok then i was called as she became delerius does not recall how she ended in hospital no other events Review of Systems Review of Systems: Yes all other systems are reviewed and are negative Physical Exam Vital Signs: Vital Signs: Last Vital Signs Temp 97 F 12/23/24 12:00 Pulse 77 12/23/24 12:00 Resp 16 12/23/24 12:00 BP 182/110 H 12/23/24 12:00 Pulse Ox 96 12/23/24 12:00 O2 Del Method Room Air 12/23/24 12:00 O2 Flow Rate 40 12/18/24 10:06 FiO2 25 12/21/24 09:57 Oxygen Flow Rate 2 12/18/24 04:35 BMI result Body Mass Index 20.1 Const: Other: Constitutional : Awake, interactive, not in distress Neck : Normal inspection, Supple Cardiovascular : RRR, no JVP, no lower extremity edema Respiratory : good bilateral air entry, no crackles, wheezes or rhonchi Gastrointestinal: soft, lax, Normal bowel sounds, Non tender Skin : Warm, Dry, bruises , Dialysis cath chest wall clean with no erythema or tenderness Neurological : Alert & oriented to self only otherwise confused, No focal deficit Objective Data Active Medications Carvedilol (Carvedilol 12.5 Mg Tablet) 12.5 mg PO BID [facility]; Protocol Last Admin: 12/23/24 12:34 Dose: 12.5 mg Documented By: TEO Clonidine HCl (Clonidine Hcl 0.1 Mg Tablet) 0.1 mg PO BID [facility]; Protocol Last Admin: 12/23/24 12:34 Dose: 0.1 mg Documented By: TEO Famotidine (Famotidine/Pf 20 Mg/2 Ml Vial) 20 mg IVPUSH Q48H [facility] Last Admin: 12/22/24 11:44 Dose: 20 mg Documented By: VINICIO Heparin Sodium (Porcine) (Heparin Sodium,Porcine 5,000 Unit/Ml Vial) 5,000 unit SUBCUT Q12H [facility] Last Admin: 12/20/24 08:32 Dose: Not Given Documented By: VINICIO Non-Admin Reason: Physician Held Med Hydralazine HCl (Hydralazine Hcl 50 Mg Tablet) 100 mg PO TID [facility]; Protocol Last Admin: 12/23/24 12:34 Dose: 100 mg Documented By: TEO Levetiracetam (Keppra) 1,000 mg in 100 mls @ 400 mls/hr IV Q12H [facility] Last Infusion: 12/23/24 12:43 Dose: Infused Documented By: TEO Ampicillin Sodium/Sulbactam (Sodium 3 gm/ Sodium Chloride) 100 mls @ 200 mls/hr IV Q24H [facility] Last Infusion: 12/22/24 18:26 Dose: Infused Documented By: JERMAINE Methadone HCl (Methadone Hcl 20 Mg/2 Ml Oral.Conc) 50 mg PO DAILY@0800 [facility] Last Admin: 12/23/24 08:32 Dose: 50 mg Documented By: TEO Co-signed By: ALEC Methylprednisolone Sodium Succinate (Methylprednisolone Sod Succ 40 Mg/Ml Vial) 40 mg IVPUSH Q12H [facility] Last Admin: 12/23/24 08:33 Dose: 40 mg Documented By: TEO Nifedipine (Nifedipine Er 60 Mg Tab.Er.24) 60 mg PO DAILY [facility]; Protocol Last Admin: 12/23/24 12:34 Dose: 60 mg Documented By: TEO Labs 12/23/24 10:59 12/23/24 10:59 Labs: Laboratory Results - last 24 hr 12/23/24 12/23/24 10:59 11:09 MCV 95.2 MCH 31.4 MCHC 33.0 RDW 19.0 H Plt Count 248 D MPV 10.0 Immature Gran % (Auto) 1.9 H Neut % (Auto) 87.8 H Lymph % (Auto) 4.2 L [place] % (Auto) 6.0 Eos % (Auto) 0.0 Baso % (Auto) 0.1 Lymph # (Auto) 0.4 L [place] # (Auto) 0.6 Eos # (Auto) 0.0 Baso # (Auto) 0.0 Abs Immat Gran (auto) 0.18 H Absolute Neuts (auto) 8.4 H Absolute Nucleated RBC 0.060 H Nucleated RBC % (auto) 0.6 H VBG pH 7.40 VBG pCO2 45 VBG pO2 50 VBG HCO3 28 H VBG O2 Saturation 64.0 VBG Base Excess 3.2 Anion Gap 18 Estim Creat Clear Calc 18.3 Estimated GFR 19 Random Glucose 98 Calcium 9.1 D Phosphorus 3.0 Magnesium 2.2 Albumin 4.1 Microbiology Microbiology Results: Microbiology 12/18/24 08:11 Blood Culture - Final Blood - Venous No growth after 5 days. 12/18/24 08:11 Blood Culture - Final Blood - Venous No growth after 5 days. Assessment and Plan (1) Status epilepticus: Status: Acute (2) Acute respiratory failure: Status: Acute (3) Drug abuse: Status: Acute (4) ESRD (end stage renal disease): Status: Acute Plan a 49 year old female with pertinent history of ESRD on hemodialysis Thursday/Thursday/Thursday with history of noncompliance, seizure disorder, anemia of chronic kidney disease, polysubstance IV drug use disorder on methadone who was recently admitted for hypertensive urgency and left AMA on 11/27. Patient is blood culture grew VRE and she was called back to the ER. # Acute toxic\metabolic encephalopathy Improved possibly due to drug withdrawal vs status epileptics w post ictal state more alert but delerius contine Keppra IV for now Valium dose given for restlessness redirection # Physical deconditioning PT eval # recent bacteremia with VRE Was on PO linezolid for 28 days. should be finished by now. Will monitor and repeat blood cultures as needed. stop all antibiotics as blood cultures negative # recent C diff infection Hold p.o. vancomycin for now # ESRD on hemodialysis MWF, Nephrology following Sevelamer # Hypertensive urgency Off Nicardipine drip restarted home meds of Hydralazine, Nifedipine , Clonidine and Carvedilol # Seizure disorder on IV Keppra # Polysubstance use disorder: Consulted Addiction Team. Patient on methadone, to restart tomorrow if more alert DVT prophylaxis: Heparin Full code Admit as inpatient and will require overnight minimum hospital stay for blood pressure control, encephalopathy, which is not possible in a lesser acute setting. Quality Stroke Does the patient have a stroke diagnosis?: No VTE Prior VTE?: No VTE Risk Level:: Medical - moderate - high VTE Device Contraindication: Treatment Not Indicated VTE Drug Contraindication: N/A - Med Ordered
[2024-12-23] MEDS: Sevelamer Carbonate Tablet 800 MG TABLET PO (16:32)
[2024-12-24] VITALS (7 sets, daily range): BP systolic 160–180; BP diastolic 90–110; PULSE 76–103; RESP 16–20; TEMP 36.4–37.1; O2SAT 92–100; BMI 18.7
[2024-12-24] MEDS: methADONE HCl 20 MG/2 ML ORAL.CONC 50 MG PO (08:24)
[2024-12-24] MEDS: Sevelamer Carbonate Tablet 800 MG TABLET PO ×3 (08:25→16:47)
[2024-12-24] MEDS: carvediloL 12.5 MG TABLET PO ×2 (08:25→20:10)
[2024-12-24] MEDS: NIFEdipine ER 90 MG TAB.ER.24 PO (08:25)
[2024-12-24] MEDS: hydrALAZINE HCl 50 MG TABLET 100 MG PO ×3 (08:25→20:11)
[2024-12-24] MEDS: methylPREDNISolone Sod Succ 40 MG/ML VIAL IVPUSH (08:25)
[2024-12-24] MEDS: cloNIDine HCL 0.1 MG TABLET PO ×3 (08:28→20:11)
[2024-12-24] MEDS: levETIRAcetam in NaCl (iso-os) 1,000 MG/100 ML PIGGYBACK 400 MG IV ×2 (08:58→20:12)
--- NOTE | 2024-12-24 11:56 | HO.PM.IMPN ---
Subjective Subjective Date of Service: 12/24/24 Interval History: seen and evaluated this morning in Dialysis unit confused about time, place and people BP still elevated but trending down no other events Physical Exam Vital Signs: Vital Signs: Last Vital Signs Temp 98.4 F 12/24/24 11:09 Pulse 86 12/24/24 11:09 Resp 20 12/24/24 11:09 BP 164/92 H 12/24/24 11:09 Pulse Ox 92 12/24/24 11:09 O2 Del Method Room Air 12/24/24 11:09 O2 Flow Rate 40 12/18/24 10:06 FiO2 25 12/21/24 09:57 Oxygen Flow Rate 2 12/18/24 04:35 BMI result Body Mass Index 20.1 Const: Other: Constitutional : Awake, interactive, not in distress Neck : Normal inspection, Supple Cardiovascular : RRR, no JVP, no lower extremity edema Respiratory : good bilateral air entry, no crackles, wheezes or rhonchi Gastrointestinal: soft, lax, Normal bowel sounds, Non tender Skin : Warm, Dry, bruises , Dialysis cath chest wall clean with no erythema or tenderness Neurological : Alert & oriented to self only otherwise confused, No focal deficit Objective Data Active Medications Carvedilol (Carvedilol 12.5 Mg Tablet) 12.5 mg PO BID [facility]; Protocol Last Admin: 12/24/24 08:25 Dose: 12.5 mg Documented By: JADIEL Clonidine HCl (Clonidine Hcl 0.1 Mg Tablet) 0.1 mg PO TID [facility]; Protocol Last Admin: 12/24/24 08:28 Dose: 0.1 mg Documented By: JADIEL Famotidine (Famotidine/Pf 20 Mg/2 Ml Vial) 20 mg IVPUSH Q48H [facility] Last Admin: 12/22/24 11:44 Dose: 20 mg Documented By: VINICIO Heparin Sodium (Porcine) (Heparin Sodium,Porcine 5,000 Unit/Ml Vial) 5,000 unit SUBCUT Q12H [facility] Last Admin: 12/20/24 08:32 Dose: Not Given Documented By: VINICIO Non-Admin Reason: Physician Held Med Hydralazine HCl (Hydralazine Hcl 50 Mg Tablet) 100 mg PO TID [facility]; Protocol Last Admin: 12/24/24 08:25 Dose: 100 mg Documented By: JADIEL Levetiracetam (Keppra) 1,000 mg in 100 mls @ 400 mls/hr IV Q12H [facility] Last Admin: 12/24/24 08:58 Dose: 400 mls/hr Documented By: JADIEL Methadone HCl (Methadone Hcl 20 Mg/2 Ml Oral.Conc) 50 mg PO DAILY@0800 [facility] Last Admin: 12/24/24 08:24 Dose: 50 mg Documented By: JADIEL Co-signed By: AMBER Methylprednisolone Sodium Succinate (Methylprednisolone Sod Succ 40 Mg/Ml Vial) 40 mg IVPUSH Q12H [facility] Last Admin: 12/24/24 08:25 Dose: 40 mg Documented By: JADIEL Nifedipine (Nifedipine Er 90 Mg Tab.Er.24) 90 mg PO DAILY [facility]; Protocol Last Admin: 12/24/24 08:25 Dose: 90 mg Documented By: JADIEL Sevelamer Carbonate (Sevelamer Carbonate Tablet 800 Mg Tablet) 800 mg PO TIDWM [facility] Last Admin: 12/24/24 08:25 Dose: 800 mg Documented By: JADIEL Sodium Zirconium Cyclosilicate (Sodium Zirconium Cyclosilicate 10 Gm Powd.Pack) 10 gm PO SUTUTHSA [facility] Labs 12/23/24 10:59 12/23/24 10:59 Microbiology Microbiology Results: Microbiology 12/18/24 08:11 Blood Culture - Final Blood - Venous No growth after 5 days. 12/18/24 08:11 Blood Culture - Final Blood - Venous No growth after 5 days. Assessment and Plan (1) Acute encephalopathy: Status: Acute (2) Drug abuse: Status: Acute (3) ESRD (end stage renal disease): Status: Acute (4) Hypertensive urgency: Status: Acute Plan a 49 year old female with pertinent history of ESRD on hemodialysis Thursday/Thursday/Thursday with history of noncompliance, seizure disorder, anemia of chronic kidney disease, polysubstance IV drug use disorder on methadone who was recently admitted for hypertensive urgency and left AMA on 11/27. Patient is blood culture grew VRE and she was called back to the ER. # Acute toxic\metabolic encephalopathy Due to in hospital delerium , anoxic injury, medicaitons contine Keppra IV for now , switch to PO Valium dose given for restlessness redirection HCP invoked # Physical deconditioning PT eval # recent bacteremia with VRE Was on PO linezolid for 28 days. should be finished by now. Will monitor and repeat blood cultures as needed. stop all antibiotics as blood cultures negative # recent C diff infection Hold p.o. vancomycin for now # ESRD on hemodialysis MWF, Nephrology following Sevelamer # Hypertensive urgency Increase Hydralazine Increase Nifedipine Continue home dose Clonidine and Carvedilol # Seizure disorder on IV Keppra # Polysubstance use disorder: Consulted Addiction Team. Patient on methadone, to restart tomorrow if more alert DVT prophylaxis: Heparin Full code Admit as inpatient and will require overnight minimum hospital stay for blood pressure control, encephalopathy, which is not possible in a lesser acute setting. Quality Stroke Does the patient have a stroke diagnosis?: No VTE Prior VTE?: No VTE Risk Level:: Medical - moderate - high VTE Device Contraindication: Treatment Not Indicated VTE Drug Contraindication: N/A - Med Ordered
[2024-12-24] MEDS: Famotidine/PF 20 MG/2 ML VIAL IVPUSH (12:26)
[2024-12-24] MEDS: Sodium Zirconium Cyclosilicate 10 GM POWD.PACK PO (16:47)
[2024-12-25] MEDS: diazePAM 10 MG/2 ML CARTRIDGE 7.5 MG IVPUSH (01:20)
[2024-12-25 06:00] VITALS: BMI 18.7
[2024-12-25 07:03] VITALS: BP 164/100; PULSE 90; RESP 18; TEMP 36.8; O2SAT 99
[2024-12-25] MEDS: methADONE HCl 20 MG/2 ML ORAL.CONC 50 MG PO (07:56)
[2024-12-25] MEDS: Sevelamer Carbonate Tablet 800 MG TABLET PO ×2 (07:57→12:11)
[2024-12-25 08:28] LABS: Basophils Absolute Auto 0.1 X10*3/uL (0.0-0.2); Basophils Percent Auto 0.4 % (0-2); Eosinophils Absolute Auto 0.1 X10*3/uL (0.0-0.4); Eosinophils Percent Auto 0.7 % (0-4); Hematocrit 33.8 % (37.0-47.0); Hemoglobin 11.3 g/dl (12.0-16.0); Imm Gran Abs Auto 0.31 X10*3/uL (0.00-0.03); Imm Gran Pct Auto 2.3 % (0.0-0.4); Lymphocytes Percent Auto 14.7 % (20-40); MANUAL DIFF FLAG SCAN; Mean Corpuscular HGB Conc 33.4 g/dl (31.0-35.0); Mean Corpuscular Hemoglobin 31.2 pg (27.0-33.0); Mean Corpuscular Volume 93.4 fL (80.0-98.0); Mean Platelet Volume 12.8 fL (9.4-12.3); Monocytes Absolute Auto 1.5 X10*3/uL (0.1-1.2); Monocytes Percent Auto 11.3 % (2-11); NRBC Pct Auto 0.1 /100WBC (0.0-0.2); Neutrophils Absolute Auto 9.6 x10*3/uL (2.0-8.3); Neutrophils Percent Auto 70.6 % (45-73); PLT CLUMP 1; Red Blood Count 3.62 X10*6/uL (4.20-5.50); Red Cell Distribution Width 19.4 % (11.0-16.0); SCAN SMEAR FLAG 1
[2024-12-25 08:29] LABS: Platelet Count 232 X10*3/uL (160-400); White Blood Count 13.5 X10*3/uL (4.8-10.8)
[2024-12-25 08:52] LABS: Albumin Level 3.1 g/dL (3.5-5.0); Anion Gap 25 (12-20); Blood Urea Nitrogen 123 mg/dL (9-16); Calcium 8.9 mg/dL (8.4-10.2); Carbon Dioxide 19 mmol/L (22-29); Chloride 103 mmol/L (96-108); Estimated Glomerular Filt Rate 7; Glucose Random 79 mg/dL (60-115); Magnesium 2.2 mg/dL (1.6-2.6); Phosphorus 2.6 mg/dL (2.7-4.5); Potassium 4.2 mmol/L (3.3-5.1); Sodium 143 mmol/L (135-145)
[2024-12-25 09:04] LABS: SLIDE REVIEW VERIFIED
[2024-12-25 10:06] VITALS: BP 190/116
[2024-12-25] MEDS: NIFEdipine ER 90 MG TAB.ER.24 PO (10:06)
[2024-12-25 10:14] VITALS: BP 190/116
[2024-12-25] MEDS: cloNIDine HCL 0.1 MG TABLET PO (10:14)
[2024-12-25] MEDS: carvediloL 12.5 MG TABLET PO (10:14)
[2024-12-25] MEDS: hydrALAZINE HCl 50 MG TABLET 100 MG PO (10:14)
[2024-12-25] MEDS: levETIRAcetam in NaCl (iso-os) 1,000 MG/100 ML PIGGYBACK 400 MG IV ×2 (10:15→22:28)
--- NOTE | 2024-12-25 10:26 | PC.NURSE ---
MD notified of broken sutures and hemodialysis catheter has been slightly repositioned at some point prior to 30 by patient. Line cleaned and redressed with Tegaderms and covered with a dressing.
[2024-12-25 10:54] VITALS: BP 180/92; PULSE 86; RESP 20; TEMP 36.8; O2SAT 97
--- NOTE | 2024-12-25 13:00 | HO.PM.IMPN ---
Subjective Subjective Date of Service: 12/25/24 Interval History: seen and evaluated this morning in Dialysis unit confused about time, place and people BP still elevated pulled her Permacath overnight, secured for now no other events Review of Systems Review of Systems: Yes all other systems are reviewed and are negative Physical Exam Vital Signs: Vital Signs: Last Vital Signs Temp 98.2 F 12/25/24 10:54 Pulse 86 12/25/24 10:54 Resp 20 12/25/24 10:54 BP 180/92 H 12/25/24 10:54 Pulse Ox 97 12/25/24 10:54 O2 Del Method Room Air 12/25/24 10:54 O2 Flow Rate 40 12/18/24 10:06 FiO2 25 12/21/24 09:57 Oxygen Flow Rate 2 12/18/24 04:35 BMI result Body Mass Index 18.7 Const: Other: Constitutional : Awake, interactive, not in distress Neck : Normal inspection, Supple Cardiovascular : RRR, no JVP, no lower extremity edema Respiratory : good bilateral air entry, no crackles, wheezes or rhonchi Gastrointestinal: soft, lax, Normal bowel sounds, Non tender Skin : Warm, Dry, bruises , Dialysis cath chest wall pulled with sutures removed, covered with dressing, no bleeding or rash Neurological : Alert & oriented to self only otherwise confused, No focal deficit Objective Data Active Medications Carvedilol (Carvedilol 12.5 Mg Tablet) 12.5 mg PO BID [facility]; Protocol Last Admin: 12/25/24 10:14 Dose: 12.5 mg Documented By: JADIEL Clonidine HCl (Clonidine Hcl 0.1 Mg Tablet) 0.1 mg PO TID [facility]; Protocol Last Admin: 12/25/24 10:14 Dose: 0.1 mg Documented By: JADIEL Famotidine (Famotidine/Pf 20 Mg/2 Ml Vial) 20 mg IVPUSH Q48H [facility] Last Admin: 12/24/24 12:26 Dose: 20 mg Documented By: JADIEL Heparin Sodium (Porcine) (Heparin Sodium,Porcine 5,000 Unit/Ml Vial) 5,000 unit SUBCUT Q12H [facility] Last Admin: 12/20/24 08:32 Dose: Not Given Documented By: VINICIO Non-Admin Reason: Physician Held Med Hydralazine HCl (Hydralazine Hcl 50 Mg Tablet) 100 mg PO TID [facility]; Protocol Last Admin: 12/25/24 10:14 Dose: 100 mg Documented By: JADIEL Levetiracetam (Keppra) 1,000 mg in 100 mls @ 400 mls/hr IV Q12H [facility] Last Infusion: 12/25/24 10:30 Dose: Infused Documented By: JADIEL Methadone HCl (Methadone Hcl 20 Mg/2 Ml Oral.Conc) 50 mg PO DAILY@0800 [facility] Last Admin: 12/25/24 07:56 Dose: 50 mg Documented By: JADIEL Co-signed By: AMBER Nifedipine (Nifedipine Er 90 Mg Tab.Er.24) 90 mg PO DAILY [facility]; Protocol Last Admin: 12/25/24 10:06 Dose: 90 mg Documented By: JADIEL Sevelamer Carbonate (Sevelamer Carbonate Tablet 800 Mg Tablet) 800 mg PO TIDWM [facility] Last Admin: 12/25/24 12:11 Dose: 800 mg Documented By: JADIEL Sodium Zirconium Cyclosilicate (Sodium Zirconium Cyclosilicate 10 Gm Powd.Pack) 10 gm PO SUTUTHSA [facility] Last Admin: 12/24/24 16:47 Dose: 10 gm Documented By: JADIEL Labs 12/25/24 07:14 12/25/24 07:14 Labs: Laboratory Results - last 24 hr 12/25/24 07:14 MCV 93.4 MCH 31.2 MCHC 33.4 RDW 19.4 H Plt Count 232 MPV 12.8 H Immature Gran % (Auto) 2.3 H Neut % (Auto) 70.6 Lymph % (Auto) 14.7 L [place] % (Auto) 11.3 H Eos % (Auto) 0.7 Baso % (Auto) 0.4 Lymph # (Auto) 2.0 [place] # (Auto) 1.5 H Eos # (Auto) 0.1 Baso # (Auto) 0.1 Abs Immat Gran (auto) 0.31 H Absolute Neuts (auto) 9.6 H Absolute Nucleated RBC 0.020 H Nucleated RBC % (auto) 0.1 Smear Tech's Comments VERIFIED Anion Gap 25 H Estim Creat Clear Calc 7.0 Estimated GFR 7 Random Glucose 79 Calcium 8.9 Phosphorus 2.6 L Magnesium 2.2 Albumin 3.1 L Assessment and Plan (1) Status epilepticus: Status: Acute (2) Acute respiratory failure: Status: Acute (3) Drug abuse: Status: Acute (4) ESRD (end stage renal disease): Status: Acute (5) Acute encephalopathy: Status: Acute Plan a 49 year old female with pertinent history of ESRD on hemodialysis Thursday/Thursday/Thursday with history of noncompliance, seizure disorder, anemia of chronic kidney disease, polysubstance IV drug use disorder on methadone who was recently admitted for hypertensive urgency and left AMA on 11/27. Patient is blood culture grew VRE and she was called back to the ER. # Acute toxic\metabolic encephalopathy Due to in hospital delerium , anoxic injury, medicaitons to do an EEG to R\O seizure contine Keppra IV for now , switch to PO later Valium dose prn for restlessness redirection HCP invoked # Physical deconditioning PT eval # recent bacteremia with VRE Was on PO linezolid for 28 days. should be finished by now. Will monitor and repeat blood cultures as needed. stop all antibiotics as blood cultures negative # recent C diff infection Hold p.o. vancomycin for now # ESRD on hemodialysis MWF, Nephrology following [facility] IR to evaluate her Permacath and change it if needed # Hypertensive urgency Increase Hydralazine Increase Nifedipine Continue home dose Clonidine and Carvedilol # Seizure disorder on IV Keppra # Polysubstance use disorder: Consulted Addiction Team. Patient on methadone, to restart tomorrow if more alert DVT prophylaxis: Heparin Full code Admit as inpatient and will require overnight minimum hospital stay for blood pressure control, encephalopathy, which is not possible in a lesser acute setting. Quality Stroke Does the patient have a stroke diagnosis?: No VTE Prior VTE?: No VTE Risk Level:: Medical - moderate - high VTE Device Contraindication: Treatment Not Indicated VTE Drug Contraindication: N/A - Med Ordered
--- NOTE | 2024-12-25 14:54 | PC.NURSE ---
Per Dr. Gonzalez, while patient is sleeping to forgo vital signs and hold medications to allow for sleep. Can medicate once awake.
[2024-12-25 20:25] VITALS: BP 124/76; PULSE 92; RESP 16; TEMP 36.7; O2SAT 97
[2024-12-26] VITALS (9 sets, daily range): BP systolic 102–184; BP diastolic 60–99; PULSE 80–94; RESP 15–20; TEMP 36–37.3; O2SAT 96–99; BMI 22.4
--- NOTE | 2024-12-26 | EEG_ITS ---
This is a 16-channel EEG with an EKG lead. The patient is reported drowsy and moving during the tracing. Background EEG rhythm is mixed theta, beta low to medium amplitude with frequent muscle and lead artifacts and eye movement artifacts. Patient transitioned in and out of drowsiness. No definite sharp waves or spikes were noted. Photic stimulation or hypoventilation were not performed. Cardiac lead revealed tachycardia with a rate of about 100 per minute. IMPRESSION: Generalized slowing with frequent movement artifacts limiting interpretation of EEG. No evidence of seizure disorder. MD AB Mayberry/MALGORZATA / [phone]
[2024-12-26 07:58] LABS: VBG Base Excess -1.5 mmol/L; VBG HCO3 21 mmol/L (22-26); VBG pCO2 31 mmHg; VBG pH 7.44 (7.32-7.43); VBG pO2 146 mmHg
[2024-12-26 08:06] LABS: Basophils Percent Auto 0.2 % (0-2); Eosinophils Absolute Auto 0.2 X10*3/uL (0.0-0.4); Eosinophils Percent Auto 1.7 % (0-4); Imm Gran Abs Auto 0.17 X10*3/uL (0.00-0.03); Imm Gran Pct Auto 1.4 % (0.0-0.4); Lymphocytes Absolute Auto 1.3 X10*3/uL (1.2-4.9); Lymphocytes Percent Auto 11.1 % (20-40); MANUAL DIFF FLAG SCAN; Mean Corpuscular HGB Conc 33.3 g/dl (31.0-35.0); Mean Corpuscular Hemoglobin 31.6 pg (27.0-33.0); Mean Corpuscular Volume 94.8 fL (80.0-98.0); Mean Platelet Volume 12.6 fL (9.4-12.3); Monocytes Absolute Auto 0.9 X10*3/uL (0.1-1.2); Monocytes Percent Auto 7.8 % (2-11); Neutrophils Absolute Auto 9.1 x10*3/uL (2.0-8.3); Neutrophils Percent Auto 77.8 % (45-73); PLT CLUMP 1; Red Blood Count 3.48 X10*6/uL (4.20-5.50); Red Cell Distribution Width 19.9 % (11.0-16.0); SCAN SMEAR FLAG 1; Venous Blood Gas Refer to POC result
[2024-12-26 08:07] LABS: White Blood Count 11.7 X10*3/uL (4.8-10.8)
[2024-12-26 08:21] LABS: Platelet Count 192 X10*3/uL (160-400); SLIDE REVIEW VERIFIED
[2024-12-26 08:27] LABS: Albumin Level 3.1 g/dL (3.5-5.0); Anion Gap 23 (12-20); Calcium 9.1 mg/dL (8.4-10.2); Carbon Dioxide 22 mmol/L (22-29); Chloride 102 mmol/L (96-108); Estimated Glomerular Filt Rate 5; Glucose Random 111 mg/dL (60-115); Magnesium 2.3 mg/dL (1.6-2.6); Phosphorus 3.1 mg/dL (2.7-4.5); Sodium 142 mmol/L (135-145)
[2024-12-26 08:40] LABS: Blood Urea Nitrogen 134 mg/dL (9-16)
[2024-12-26] MEDS: Famotidine/PF 20 MG/2 ML VIAL IVPUSH (10:30)
[2024-12-26] MEDS: NIFEdipine ER 60 MG TAB.ER.24 PO ×2 (10:31→20:11)
[2024-12-26] MEDS: carvediloL 12.5 MG TABLET PO ×2 (10:31→20:11)
[2024-12-26] MEDS: cloNIDine HCL 0.1 MG TABLET PO ×3 (10:31→20:11)
[2024-12-26] MEDS: hydrALAZINE HCl 50 MG TABLET 100 MG PO ×3 (10:31→20:11)
[2024-12-26] MEDS: methADONE HCl 20 MG/2 ML ORAL.CONC 50 MG PO (10:32)
[2024-12-26] MEDS: levETIRAcetam in NaCl (iso-os) 1,000 MG/100 ML PIGGYBACK 400 MG IV ×2 (10:32→20:11)
[2024-12-26] MEDS: Sevelamer Carbonate Tablet 800 MG TABLET PO ×2 (10:33→17:25)
--- NOTE | 2024-12-26 11:47 | MHC.CLN ---
F/U PO INTAKE 50% AVERAGE DIET RX: CHOPPED RECEIVING ENSURE PLUS HIGH PROTEIN TO PROMOTE WOUND HEALING SUPP PROVIDES 1050KCALS, 60 G PROTEIN CONTINUE TO MONITOR PO INTAKE AND ENCOURAGE SUPPLEMENT
--- NOTE | 2024-12-26 12:16 | P.PNNP_ITS ---
Subjective Subjective Date of Service: 12/26/24 Interval history: pulled her Permacath,, secured for now no other events Physical Exam 2 Vital Signs: Vital Signs: Last Vital Signs Temp 99.1 F 12/26/24 08:00 Pulse 94 12/26/24 10:31 Resp 20 12/26/24 08:00 BP 184/92 H 12/26/24 10:31 Pulse Ox 97 12/26/24 08:00 O2 Del Method Room Air 12/26/24 08:00 O2 Flow Rate 40 12/18/24 10:06 FiO2 25 12/21/24 09:57 Oxygen Flow Rate 2 12/18/24 04:35 BMI result Body Mass Index 22.4 cvs: s1s2 Rs; cta Abd; soft Objective Data Labs 12/26/24 07:43 12/26/24 07:43 Labs: Laboratory Results - last 24 hr 12/26/24 12/26/24 07:43 07:54 WBC 11.7 H RBC 3.48 L Hgb 11.0 L Hct 33.0 L MCV 94.8 MCH 31.6 MCHC 33.3 RDW 19.9 H Plt Count 192 MPV 12.6 H Immature Gran % (Auto) 1.4 H Neut % (Auto) 77.8 H Lymph % (Auto) 11.1 L [place] % (Auto) 7.8 Eos % (Auto) 1.7 Baso % (Auto) 0.2 Lymph # (Auto) 1.3 [place] # (Auto) 0.9 Eos # (Auto) 0.2 Baso # (Auto) 0.0 Abs Immat Gran (auto) 0.17 H Absolute Neuts (auto) 9.1 H Absolute Nucleated RBC 0.000 Nucleated RBC % (auto) 0.0 Smear Tech's Comments VERIFIED VBG pH 7.44 H VBG pCO2 31 VBG pO2 146 VBG HCO3 21 L VBG O2 Saturation 99.0 VBG Base Excess -1.5 Sodium 142 Potassium 5.0 Chloride 102 Carbon Dioxide 22 Anion Gap 23 H BUN 134 H Creatinine 8.08 H* Estim Creat Clear Calc 6.0 Estimated GFR 5 Random Glucose 111 Calcium 9.1 Phosphorus 3.1 Magnesium 2.3 Albumin 3.1 L Microbiology Microbiology Results: Microbiology 12/18/24 08:11 Blood - Venous Blood Culture - Final No growth after 5 days. 12/18/24 08:11 Blood - Venous Blood Culture - Final No growth after 5 days. Procedures Date of Service Date of Service: 12/26/24 Assessment & Plan Assessment and plan (1) ESRD (end stage renal disease): Status: Acute Plan 1. ESRD: usu mwf [facility]; cont mwf 2. AMS: multifact and w/u as per ICU team 3. Severe HTN: meds as noted per ICU 4. Renal anemia 5. ID: as per ICU team REC: cont HD mwf; meds as noted; w/u AAMS as per ICU and BP meds changed to clonidine tid and nifedepine to 90mg if needed can increase coreg to 25mg bid Time Spent With Patient Time: Total time managing care of this patient today ____ minutes. Progress Note: Quality Stroke Does the patient have a stroke diagnosis?: No
--- NOTE | 2024-12-26 12:16 | MHC.CM.PN ---
Addendum entered by Corrina Beach 12/26/24 14:01: PT is recommending Acute Rehab; CM will follow. Original Note: Per PT, STR will be recommended. Per MD, Patient may be medically cleared for dc to STR soon. CM met with Patient at bedside to discuss PT's recommendation and Patient states that she wants to go home. MD is aware. CM will follow.
--- NOTE | 2024-12-26 14:37 | MHC.SLORD ---
Speech Language Pathology Order Status: Pt resting comfortably after lunch, RN consulted, no concerns with pt PO tolerance. MAKE READY MECHANIC to followup if indicated.
--- NOTE | 2024-12-26 15:18 | P.PNIM_ITS ---
Subjective Subjective Date of Service: 12/26/24 Interval History: seen and evaluated this morning laying comfortable doing EEG confused BP still elevated Permacath stable and secured no other events Review of Systems Review of Systems: Yes all other systems are reviewed and are negative Physical Exam 2 Vital Signs: Vital Signs: Last Vital Signs Temp 98.7 F 12/26/24 12:00 Pulse 90 12/26/24 12:00 Resp 18 12/26/24 12:00 BP 102/60 12/26/24 12:00 Pulse Ox 97 12/26/24 12:00 O2 Del Method Room Air 12/26/24 12:00 O2 Flow Rate 40 12/18/24 10:06 FiO2 25 12/21/24 09:57 Oxygen Flow Rate 2 12/18/24 04:35 BMI result Body Mass Index 22.4 Const: Other: Constitutional : Awake, interactive, not in distress Neck : Normal inspection, Supple Cardiovascular : RRR, no JVP, no lower extremity edema Respiratory : good bilateral air entry, no crackles, wheezes or rhonchi Gastrointestinal: soft, lax, Normal bowel sounds, Non tender Skin : Warm, Dry, bruises , Dialysis cath chest wall covered with dressing, no bleeding or rash Neurological : Alert & oriented to self only otherwise confused, No focal deficit Objective Data Active Medications Carvedilol (Carvedilol 12.5 Mg Tablet) 12.5 mg PO BID [facility]; Protocol Last Admin: 12/26/24 10:31 Dose: 12.5 mg Documented By: JERMAINE Clonidine HCl (Clonidine Hcl 0.1 Mg Tablet) 0.1 mg PO TID [facility]; Protocol Last Admin: 12/26/24 10:31 Dose: 0.1 mg Documented By: JERMAINE Famotidine (Famotidine/Pf 20 Mg/2 Ml Vial) 20 mg IVPUSH Q48H [facility] Last Admin: 12/26/24 10:30 Dose: 20 mg Documented By: JERMAINE Heparin Sodium (Porcine) (Heparin Sodium,Porcine 5,000 Unit/Ml Vial) 5,000 unit SUBCUT Q12H [facility] Last Admin: 12/20/24 08:32 Dose: Not Given Documented By: VINICIO Non-Admin Reason: Physician Held Med Hydralazine HCl (Hydralazine Hcl 50 Mg Tablet) 100 mg PO TID [facility]; Protocol Last Admin: 12/26/24 10:31 Dose: 100 mg Documented By: JERMAINE Levetiracetam (Keppra) 1,000 mg in 100 mls @ 400 mls/hr IV Q12H [facility] Last Infusion: 12/26/24 11:29 Dose: Infused Documented By: JERMAINE Methadone HCl (Methadone Hcl 20 Mg/2 Ml Oral.Conc) 50 mg PO DAILY@0800 [facility] Last Admin: 12/26/24 10:32 Dose: 50 mg Documented By: JERMAINE Co-signed By: KITA Nifedipine (Nifedipine Er 60 Mg Tab.Er.24) 60 mg PO BID [facility]; Protocol Last Admin: 12/26/24 10:31 Dose: 60 mg Documented By: JERMAINE Sevelamer Carbonate (Sevelamer Carbonate Tablet 800 Mg Tablet) 800 mg PO TIDWM [facility] Last Admin: 12/26/24 11:36 Dose: Not Given Documented By: JERMAINE Non-Admin Reason: morning dose given late d/t patient sleepin Sodium Zirconium Cyclosilicate (Sodium Zirconium Cyclosilicate 10 Gm Powd.Pack) 10 gm PO SUTUTHSA [facility] Last Admin: 12/25/24 21:09 Dose: Not Given Documented By: EVERETT Non-Admin Reason: let pt sleep per Labs 12/26/24 07:43 12/26/24 07:43 Labs: Laboratory Results - last 24 hr 12/26/24 12/26/24 07:43 07:54 MCV 94.8 MCH 31.6 MCHC 33.3 RDW 19.9 H Plt Count 192 MPV 12.6 H Immature Gran % (Auto) 1.4 H Neut % (Auto) 77.8 H Lymph % (Auto) 11.1 L [place] % (Auto) 7.8 Eos % (Auto) 1.7 Baso % (Auto) 0.2 Lymph # (Auto) 1.3 [place] # (Auto) 0.9 Eos # (Auto) 0.2 Baso # (Auto) 0.0 Abs Immat Gran (auto) 0.17 H Absolute Neuts (auto) 9.1 H Absolute Nucleated RBC 0.000 Nucleated RBC % (auto) 0.0 Smear Tech's Comments VERIFIED VBG pH 7.44 H VBG pCO2 31 VBG pO2 146 VBG HCO3 21 L VBG O2 Saturation 99.0 VBG Base Excess -1.5 Anion Gap 23 H Estim Creat Clear Calc 6.0 Estimated GFR 5 Random Glucose 111 Calcium 9.1 Phosphorus 3.1 Magnesium 2.3 Albumin 3.1 L Assessment and Plan (1) Status epilepticus: Status: Acute (2) Acute respiratory failure: Status: Acute (3) Drug abuse: Status: Acute (4) ESRD (end stage renal disease): Status: Acute Plan a 49 year old female with pertinent history of ESRD on hemodialysis Thursday/Thursday/Thursday with history of noncompliance, seizure disorder, anemia of chronic kidney disease, polysubstance IV drug use disorder on methadone who was recently admitted for hypertensive urgency and left AMA on 11/27. Patient is blood culture grew VRE and she was called back to the ER. # Acute toxic\metabolic encephalopathy Due to in hospital delerium , anoxic injury, medicaitons pending EEG to R\O seizure contine Keppra IV for now , switch to PO later Valium dose prn for restlessness redirection HCP invoked # Physical deconditioning PT eval # recent C diff infection Hold p.o. vancomycin for now # ESRD on hemodialysis MWF, Nephrology following [facility] IR evaluated her Permacath , looks good, to continue dialysis MWF # Hypertensive urgency Increase Hydralazine Increase Nifedipine Continue home dose Clonidine and Carvedilol # Seizure disorder on IV Keppra # Polysubstance use disorder: Consulted Addiction Team. Patient on methadone, to restart tomorrow if more alert # recent bacteremia with VRE Was on PO linezolid for 28 days. finished by now. Will monitor and repeat blood cultures as needed. stop all antibiotics as blood cultures negative DVT prophylaxis: Heparin Full code Admit as inpatient and will require overnight minimum hospital stay for blood pressure control, encephalopathy, which is not possible in a lesser acute setting. Quality Stroke Does the patient have a stroke diagnosis?: No VTE Prior VTE?: No VTE Risk Level:: Medical - moderate - high VTE Device Contraindication: Treatment Not Indicated VTE Drug Contraindication: N/A - Med Ordered
[2024-12-27] VITALS (9 sets, daily range): BP systolic 105–152; BP diastolic 57–84; PULSE 82–95; RESP 16–17; TEMP 36.4–37; O2SAT 95–98
--- NOTE | 2024-12-27 | ECG_ITS ---
Test Reason : CP Blood Pressure : */* mmHG Vent. Rate : 95 BPM Atrial Rate : 95 BPM P-R Int : 116 ms QRS Dur : 80 ms QT Int : 352 ms P-R-T Axes : 59 -30 16 degrees QTcB Int : 442 ms Normal sinus rhythm Left axis deviation Abnormal ECG When compared with ECG of 27-Dec-2024 06:33, No significant changes seen Referred By: Orlando Gonzalez Electronically Signed By: MATT GUEVARA
--- NOTE | 2024-12-27 | ECG_ITS ---
Test Reason : high K Blood Pressure : */* mmHG Vent. Rate : 98 BPM Atrial Rate : 98 BPM P-R Int : 114 ms QRS Dur : 80 ms QT Int : 338 ms P-R-T Axes : 63 -27 30 degrees QTcB Int : 431 ms Poor data quality, interpretation may be adversely affected Sinus rhythm with occasional atrial-paced complexes and Premature ventricular complexes or Fusion complexes Abnormal ECG When compared with ECG of 18-Dec-2024 04:49, ST less depressed in Inferior leads Referred By: Rufino Terrazas Electronically Signed By: MATT GUEVARA
[2024-12-27 06:20] LABS: Anion Gap 26 (12-20); Calcium 9.1 mg/dL (8.4-10.2); Carbon Dioxide 18 mmol/L (22-29); Chloride 105 mmol/L (96-108); Creatinine Clr Calc Pharmacy 4.8; Estimated Glomerular Filt Rate 4; Glucose Random 101 mg/dL (60-115); Potassium 6.7 mmol/L (3.3-5.1); Sodium 142 mmol/L (135-145)
[2024-12-27 06:31] LABS: Blood Urea Nitrogen 161 mg/dL (9-16)
[2024-12-27] MEDS: Dextrose 50 % 25 GM/50 ML SYRINGE IVPUSH (06:39)
[2024-12-27] MEDS: Insulin Regular, Human 100 UNIT/ML 10 ML VIAL IVPUSH (06:41)
[2024-12-27] MEDS: Sodium Zirconium Cyclosilicate 5 GM POWD.PACK PO ×2 (06:41→12:38)
[2024-12-27] MEDS: Calcium Gluconate/NaCl,Iso-Osm 1 GM/50 ML PLAST..BAG IV (06:41)
--- NOTE | 2024-12-27 09:29 | P.PNIM_ITS ---
Subjective Subjective Date of Service: 12/27/24 Interval History: seen and evaluated this morning she is in dialysis looks lethargic and confused BP better controlled Permacath stable and secured no other events Review of Systems Review of Systems: Yes all other systems are reviewed and are negative Physical Exam 2 Vital Signs: Vital Signs: Last Vital Signs Temp 98.3 F 12/27/24 07:42 Pulse 95 12/27/24 07:42 Resp 16 12/27/24 07:42 BP 142/73 H 12/27/24 07:42 Pulse Ox 97 12/27/24 07:42 O2 Del Method Room Air 12/27/24 07:42 O2 Flow Rate 40 12/18/24 10:06 FiO2 25 12/21/24 09:57 Oxygen Flow Rate 2 12/18/24 04:35 BMI result Body Mass Index 22.4 Const: Other: Constitutional : less awake and interactive, looks lethargic, not in distress Neck : Normal inspection, Supple Cardiovascular : RRR, no JVP, no lower extremity edema Respiratory : good bilateral air entry, no crackles, wheezes or rhonchi Gastrointestinal: soft, lax, Normal bowel sounds, Non tender Skin : Warm, Dry, bruises , Dialysis cath chest wall covered with dressing, no bleeding or rash Neurological : Alert & oriented to self and place, hypoactive, No focal deficit Objective Data Active Medications Carvedilol (Carvedilol 12.5 Mg Tablet) 12.5 mg PO BID [facility]; Protocol Last Admin: 12/26/24 20:11 Dose: 12.5 mg Documented By: GRIS Clonidine HCl (Clonidine Hcl 0.1 Mg Tablet) 0.1 mg PO TID [facility]; Protocol Last Admin: 12/26/24 20:11 Dose: 0.1 mg Documented By: GRIS Famotidine (Famotidine/Pf 20 Mg/2 Ml Vial) 20 mg IVPUSH Q48H [facility] Last Admin: 12/26/24 10:30 Dose: 20 mg Documented By: JERMAINE Heparin Sodium (Porcine) (Heparin Sodium,Porcine 5,000 Unit/Ml Vial) 5,000 unit SUBCUT Q12H [facility] Last Admin: 12/20/24 08:32 Dose: Not Given Documented By: VINICIO Non-Admin Reason: Physician Held Med Hydralazine HCl (Hydralazine Hcl 50 Mg Tablet) 100 mg PO TID [facility]; Protocol Last Admin: 12/26/24 20:11 Dose: 100 mg Documented By: GRIS Levetiracetam (Keppra) 1,000 mg in 100 mls @ 400 mls/hr IV Q12H [facility] Last Infusion: 12/26/24 20:35 Dose: Infused Documented By: GRIS Methadone HCl (Methadone Hcl 20 Mg/2 Ml Oral.Conc) 50 mg PO DAILY@0800 [facility] Last Admin: 12/26/24 10:32 Dose: 50 mg Documented By: JERMAINE Co-signed By: KITA Nifedipine (Nifedipine Er 60 Mg Tab.Er.24) 60 mg PO BID [facility]; Protocol Last Admin: 12/26/24 20:11 Dose: 60 mg Documented By: GRIS Sevelamer Carbonate (Sevelamer Carbonate Tablet 800 Mg Tablet) 800 mg PO TIDWM [facility] Last Admin: 12/26/24 17:25 Dose: 800 mg Documented By: VANNESA Sodium Zirconium Cyclosilicate (Sodium Zirconium Cyclosilicate 10 Gm Powd.Pack) 10 gm PO SUTUTHSA [facility] Last Admin: 12/25/24 21:09 Dose: Not Given Documented By: EVERETT Non-Admin Reason: let pt sleep per Labs 12/26/24 07:43 12/27/24 05:19 Labs: Laboratory Results - last 24 hr 12/27/24 05:19 Anion Gap 26 H Estim Creat Clear Calc 4.8 Estimated GFR 4 Random Glucose 101 Calcium 9.1 Assessment and Plan (1) Status epilepticus: Status: Acute (2) Acute respiratory failure: Status: Acute (3) ESRD (end stage renal disease): Status: Acute Plan a 49 year old female with pertinent history of ESRD on hemodialysis Thursday/Thursday/Thursday with history of noncompliance, seizure disorder, anemia of chronic kidney disease, polysubstance IV drug use disorder on methadone who was recently admitted for hypertensive urgency and left AMA on 11/27. Patient is blood culture grew VRE and she was called back to the ER. # Acute toxic\metabolic encephalopathy Due to in hospital delerium , anoxic injury, medicaitons EEG , No evidence of seizure disorder. switch Kepra to PO Valium dose prn for restlessness redirection HCP invoked # Lethargy could be related to Keppra high dose will need to monitor for any new infection increase physical activity as tolerated # Physical deconditioning PT eval # recent C diff infection Hold p.o. vancomycin for now # ESRD on hemodialysis MWF, Nephrology following Sevelamer IR evaluated her Permacath , looks good, to continue dialysis MWF # Hypertensive urgency improving Increase Hydralazine Increase Nifedipine Continue home dose Clonidine and Carvedilol # Seizure disorder on IV Keppra # Polysubstance use disorder: Consulted Addiction Team. Patient on methadone, to restart tomorrow if more alert # recent bacteremia with VRE Was on PO linezolid for 28 days. finished by now. Will monitor and repeat blood cultures as needed. stop all antibiotics as blood cultures negative DVT prophylaxis: Heparin Full code Admit as inpatient and will require overnight minimum hospital stay for blood pressure control, encephalopathy, which is not possible in a lesser acute setting. Quality Stroke Does the patient have a stroke diagnosis?: No VTE Prior VTE?: No VTE Risk Level:: Medical - moderate - high VTE Device Contraindication: Treatment Not Indicated VTE Drug Contraindication: N/A - Med Ordered
[2024-12-27 10:52] LABS: Blood Urea Nitrogen 71 mg/dL (9-16); Calcium 9.2 mg/dL (8.4-10.2); Creatinine Clr Calc Pharmacy 10.2; Estimated Glomerular Filt Rate 10; Glucose Random 112 mg/dL (60-115)
[2024-12-27 10:57] LABS: Anion Gap 16 (12-20); Carbon Dioxide 27 mmol/L (22-29); Chloride 104 mmol/L (96-108); Potassium 3.4 mmol/L (3.3-5.1); Sodium 144 mmol/L (135-145)
[2024-12-27] MEDS: Acetaminophen 325 MG TABLET 975 MG PO (11:19)
[2024-12-27] MEDS: hydrALAZINE HCl 50 MG TABLET 100 MG PO ×2 (12:38→22:00)
[2024-12-27] MEDS: cloNIDine HCL 0.1 MG TABLET PO ×2 (12:39→21:59)
[2024-12-27] MEDS: NIFEdipine ER 60 MG TAB.ER.24 PO ×2 (12:39→21:59)
[2024-12-27] MEDS: Sevelamer Carbonate Tablet 800 MG TABLET PO ×2 (12:39→16:14)
[2024-12-27] MEDS: carvediloL 12.5 MG TABLET PO ×2 (12:39→21:59)
--- NOTE | 2024-12-27 13:02 | HO.ADDICTCON ---
History of Present Illness Date of Service: 12/27/2024 Chief Complaint: AMS Reason for Consult: OUD Sources of Information: patient interviewed and chart reviewed HPI Narrative: Patient is a 49 year old female with history of OUD and ESRD with HD. Known to this newspaper writer and addiction consult service via previous admissions related to electrolyte imbalance secondary to missed HD treatments. She has been prescribed methadone via [facility] for some time This admission patient was initially in the ICU, intubated after being found at home, minimally responsive. Transferred to medical floor once appropriate --by then had already resumed home dose of methadone --50mg. Seen by recovery support RN, who reported patient appeared comfortable, with concerns for withdrawal, however patient appeared confused stating she was not taking methadone. Attending provider aware at that time. Today consult requested to follow up with patient as she will be transitioning to SNF Chart reviewed and patient seen in room 351. She is awake, alert, bright affect. She appears comfortable--no diaphoresis or restlessness noted. She denies any body aches, anxiety etc. However patient is oriented to self only. When asked about methadone, she stated that she does not take methadone and that she has never taken methadone. Medical Evaluation Reviewed: Yes Review of Systems Constitutional: Reports no additional constitutional complaints Diagnostics Vital Signs (24Hr): Vital Signs - 24 hr 12/26/24 15:53 12/26/24 17:25 12/26/24 17:25 Temperature 98.2 F Pulse Rate 84 Respiratory Rate 18 Blood Pressure 125/63 125/75 125/75 Pulse Oximetry 96 Oxygen Delivery Method Room Air 12/26/24 19:41 12/27/24 03:05 12/27/24 07:42 Temperature 98.2 F 98.0 F 98.3 F Pulse Rate 90 95 95 Respiratory Rate 18 16 16 Blood Pressure 140/74 H 152/82 H 142/73 H Pulse Oximetry 96 95 97 Oxygen Delivery Method Room Air Room Air Room Air 12/27/24 12:19 12/27/24 12:38 12/27/24 12:39 Temperature 97.5 F Pulse Rate 82 82 Respiratory Rate 16 Blood Pressure 130/84 130/84 130/84 Pulse Oximetry 98 Oxygen Delivery Method Room Air 12/27/24 12:39 12/27/24 12:39 Temperature Pulse Rate Respiratory Rate Blood Pressure 130/84 130/84 Pulse Oximetry Oxygen Delivery Method BMI result Body Mass Index 22.4 Labs 12/26/24 07:43 12/27/24 10:09 Labs: Laboratory Results - last 48 hr 12/26/24 12/26/24 12/27/24 07:43 07:54 05:19 WBC 11.7 H RBC 3.48 L Hgb 11.0 L Hct 33.0 L MCV 94.8 MCH 31.6 MCHC 33.3 RDW 19.9 H Plt Count 192 MPV 12.6 H Immature Gran % (Auto) 1.4 H Neut % (Auto) 77.8 H Lymph % (Auto) 11.1 L [place] % (Auto) 7.8 Eos % (Auto) 1.7 Baso % (Auto) 0.2 Lymph # (Auto) 1.3 [place] # (Auto) 0.9 Eos # (Auto) 0.2 Baso # (Auto) 0.0 Abs Immat Gran (auto) 0.17 H Absolute Neuts (auto) 9.1 H Absolute Nucleated RBC 0.000 Nucleated RBC % (auto) 0.0 Smear Tech's Comments VERIFIED VBG pH 7.44 H VBG pCO2 31 VBG pO2 146 VBG HCO3 21 L VBG O2 Saturation 99.0 VBG Base Excess -1.5 Sodium 142 142 Potassium 5.0 6.7 H* D Chloride 102 105 Carbon Dioxide 22 18 L Anion Gap 23 H 26 H BUN 134 H 161 H Creatinine 8.08 H* 9.98 H* Estim Creat Clear Calc 6.0 4.8 Estimated GFR 5 4 Random Glucose 111 101 Calcium 9.1 9.1 Phosphorus 3.1 Magnesium 2.3 Albumin 3.1 L 12/27/24 10:09 WBC RBC Hgb Hct MCV MCH MCHC RDW Plt Count MPV Immature Gran % (Auto) Neut % (Auto) Lymph % (Auto) [place] % (Auto) Eos % (Auto) Baso % (Auto) Lymph # (Auto) [place] # (Auto) Eos # (Auto) Baso # (Auto) Abs Immat Gran (auto) Absolute Neuts (auto) Absolute Nucleated RBC Nucleated RBC % (auto) Smear Tech's Comments VBG pH VBG pCO2 VBG pO2 VBG HCO3 VBG O2 Saturation VBG Base Excess Sodium 144 Potassium 3.4 D Chloride 104 Carbon Dioxide 27 Anion Gap 16 BUN 71 H Creatinine 4.77 H* Estim Creat Clear Calc 10.2 Estimated GFR 10 Random Glucose 112 Calcium 9.2 Phosphorus Magnesium Albumin Mental Status Exam Mental Status Exam Patient Orientation: Person Level of Consciousness: Awake and Alert Patient Behavior: Talkative and Cooperative Affect Description: Cheerful Speech Pattern: Clear Thought Content: positive for [place] Judgement: Poor (secondary to encephalopathy) Medications Medications Current Medications Acetaminophen (Acetaminophen 325 Mg Tablet) 975 mg PO Q6H PRN PRN Reason: Headache/Pain, Scale 1-10 Last Admin: 12/27/24 11:19 Dose: 975 mg Carvedilol (Carvedilol 12.5 Mg Tablet) 12.5 mg PO BID [facility]; Protocol Last Admin: 12/27/24 12:39 Dose: 12.5 mg Clonidine HCl (Clonidine Hcl 0.1 Mg Tablet) 0.1 mg PO TID [facility]; Protocol Last Admin: 12/27/24 12:39 Dose: 0.1 mg Famotidine (Famotidine/Pf 20 Mg/2 Ml Vial) 20 mg IVPUSH Q48H [facility] Last Admin: 12/26/24 10:30 Dose: 20 mg Heparin Sodium (Porcine) (Heparin Sodium,Porcine 5,000 Unit/Ml Vial) 5,000 unit SUBCUT Q12H [facility] Last Admin: 12/20/24 08:32 Dose: Not Given Hydralazine HCl (Hydralazine Hcl 50 Mg Tablet) 100 mg PO TID [facility]; Protocol Last Admin: 12/27/24 12:38 Dose: 100 mg Levetiracetam (Levetiracetam 500 Mg Tablet) 500 mg PO BID [facility] Methadone HCl (Methadone Hcl 20 Mg/2 Ml Oral.Conc) 50 mg PO DAILY@0800 [facility] Last Admin: 12/27/24 12:59 Dose: Not Given Nifedipine (Nifedipine Er 60 Mg Tab.Er.24) 60 mg PO BID [facility]; Protocol Last Admin: 12/27/24 12:39 Dose: 60 mg Sevelamer Carbonate (Sevelamer Carbonate Tablet 800 Mg Tablet) 800 mg PO TIDWM [facility] Last Admin: 12/27/24 12:39 Dose: 800 mg Sodium Zirconium Cyclosilicate (Sodium Zirconium Cyclosilicate 10 Gm Powd.Pack) 10 gm PO SUTUTHSA [facility] Last Admin: 12/25/24 21:09 Dose: Not Given Allergies Allergies Allergy/AdvReac Type Severity Reaction Status Date / Time No Known Allergies Allergy Verified 12/18/24 04:49 Assessment & Plan Assessment & Plan (1) Opioid use disorder: Status: Acute Code(s): F11.90 - Opioid use, unspecified, uncomplicated Assessment and Plan: methadone dose at 50mg --no indication of sedation from this dose Already connected to [facility] OTP. discussed case with attending Dr. Purcell, in regards to encephalopathy. Pending neuro eval Total time managing care of this patient today _35___ minutes. [facility] Past Medical History Medical History (Updated 12/27/24 @ 15:54 by Tran Guerrero CNP) Opioid use disorder ESRD (end stage renal disease) Clostridioides difficile diarrhea Traumatic hematoma of left upper arm Seizure Hypertension, uncontrolled Anemia due to chronic kidney disease ESRD (end stage renal disease) on dialysis Medical non-compliance Norovirus Anemia HTN (hypertension) Drug abuse Social History Social History Household Members: Unknown / Unable to assess Household Members Other:: rommmate Housing: Apartment Unable to assess alcohol history related to: Unknown Alcohol intake: unknown Comment: 1:1 sitter Patient Tobacco Use Status: Former Tobacco user Frequency of e-Cigarette/Vaping Use: unknown Use of substances other than those prescribed or required for medical reasons: Unable to respond Substance Use Type: Heroin Currently Displaying Signs/Symptoms of Drug Intoxication Withdrawal: No Spiritual Healthcare Practices: unknown, unable to assess Advance Directives: Yes Advance Directives Information Provided: No Advance Directives on File: Yes Advance Directives Date on File: 09/25/24 Do you have a plan to hurt others: Vague Recently lost weight without trying: Unsure Eating poorly because of decreased appetite: Yes Nutrition Risks: Anorexia Poor oral hygiene: Yes service: No
--- NOTE | 2024-12-27 14:24 | MHC.SL.SWA ---
Speech Pathologist Impression: Risk of Aspiration Due to: s/p extubation Dysphasia Diet Status: No change Liquid Consistency and Strategies for Safe Swallow: Liquid Intake Recommendation: Thin Liquid Intake Strategies: Small Sips Solid Food Consistency: Dietary Recommendations: Chopped/Advanced (NDD3) Additional Modifications to Solid Foods: Oral Medication Intake: Whole with Puree Please contact the pharmacy regarding appropriate crushable or liquid drug formulations that are available whenever modified delivery is recommended. Compensatory Strategies and Precautions to be Taken for Safe Swallow: Sitting Upright (90 deg) Small Bites and Sips Alternate Liquids/Solids Rate of Ingestion Change Supervision While Eating and Drinking for Safe Swallow: Intermittent Supervision Swallowing Recommended Treatments: Compens. Strategy Educat. Recommendation for Speech: Inpatient Speech Therapy Comment: Recommend continue w/ Chopped/Advanced (NDD3) with THIN liquids, pills whole in puree, all for ease of mastication and administration of meals. Recommend intermittent supervision. She reports this reflects the type of food she typically eats at baseline. Pt presents w/ quiet, soft, breathy, and raspy voice; which pt reports is not baseline. Vocal quality likely indication of laryngeal damage. Recommend [employer] continue to monitor pt's vocal quality. Vessel Liner Clinican/Clinical Fellow: No Supervisory Statement: I have reviewed and agree with the student/clinical fellow's documentation: N/A Speech Language Pathologist: Dixie Toribio M.A., [facility]-[employer]
--- NOTE | 2024-12-27 15:31 | PM.NEUROCN ---
History of Present Illness Data of Consult Service Date: 12/27/24 Primary Care Provider: None Physician HPI Reason for consult: Lethargy and confusion This is a 49-year-old female with underlying end stage renal disease on hemodialysis, substance abuse on methadone, prior bacteremia with VRE, C diff, admitted after patient was brought in for evaluation of alteration of mental status with suspicion for seizure. Intubated in the emergency room for airway protection. Initial CT head with acute findings, tonic-clonic movements abated with benzodiazepines/propofol. Patient remains lethargic and confused PMFSH Past Medical History Medical History (Updated 12/19/24 @ 11:26 by Parth Rivera MD) ESRD (end stage renal disease) Clostridioides difficile diarrhea Traumatic hematoma of left upper arm Seizure Opioid use disorder Hypertension, uncontrolled Anemia due to chronic kidney disease ESRD (end stage renal disease) on dialysis Medical non-compliance Norovirus Anemia HTN (hypertension) Drug abuse Social History Social History Household Members: Unknown / Unable to assess Household Members Other:: rommmate Housing: Apartment Unable to assess alcohol history related to: Unknown Alcohol intake: unknown Comment: 1:1 sitter Patient Tobacco Use Status: Former Tobacco user Frequency of e-Cigarette/Vaping Use: unknown Use of substances other than those prescribed or required for medical reasons: Unable to respond Substance Use Type: Heroin Currently Displaying Signs/Symptoms of Drug Intoxication Withdrawal: No Spiritual Healthcare Practices: unknown, unable to assess Advance Directives: Yes Advance Directives Information Provided: No Advance Directives on File: Yes Advance Directives Date on File: 09/25/24 Do you have a plan to hurt others: Vague Recently lost weight without trying: Unsure Eating poorly because of decreased appetite: Yes Nutrition Risks: Anorexia Poor oral hygiene: Yes service: No Meds Allergies Allergy/AdvReac Type Severity Reaction Status Date / Time No Known Allergies Allergy Verified 12/18/24 04:49 Active Medications: Current Medications Acetaminophen (Acetaminophen 325 Mg Tablet) 975 mg PO Q6H PRN PRN Reason: Headache/Pain, Scale 1-10 Last Admin: 12/27/24 11:19 Dose: 975 mg Carvedilol (Carvedilol 12.5 Mg Tablet) 12.5 mg PO BID [facility]; Protocol Last Admin: 12/27/24 12:39 Dose: 12.5 mg Clonidine HCl (Clonidine Hcl 0.1 Mg Tablet) 0.1 mg PO TID [facility]; Protocol Last Admin: 12/27/24 12:39 Dose: 0.1 mg Famotidine (Famotidine/Pf 20 Mg/2 Ml Vial) 20 mg IVPUSH Q48H [facility] Last Admin: 12/26/24 10:30 Dose: 20 mg Heparin Sodium (Porcine) (Heparin Sodium,Porcine 5,000 Unit/Ml Vial) 5,000 unit SUBCUT Q12H [facility] Last Admin: 12/20/24 08:32 Dose: Not Given Hydralazine HCl (Hydralazine Hcl 50 Mg Tablet) 100 mg PO TID [facility]; Protocol Last Admin: 12/27/24 12:38 Dose: 100 mg Levetiracetam (Levetiracetam 500 Mg Tablet) 500 mg PO BID [facility] Methadone HCl (Methadone Hcl 20 Mg/2 Ml Oral.Conc) 50 mg PO DAILY@0800 [facility] Last Admin: 12/27/24 12:59 Dose: Not Given Nifedipine (Nifedipine Er 60 Mg Tab.Er.24) 60 mg PO BID [facility]; Protocol Last Admin: 12/27/24 12:39 Dose: 60 mg Sevelamer Carbonate (Sevelamer Carbonate Tablet 800 Mg Tablet) 800 mg PO TIDWM [facility] Last Admin: 12/27/24 12:39 Dose: 800 mg Sodium Zirconium Cyclosilicate (Sodium Zirconium Cyclosilicate 10 Gm Powd.Pack) 10 gm PO SUTUTHSA [facility] Last Admin: 12/25/24 21:09 Dose: Not Given Home Medications ?Medication ?Instructions ?Recorded ?Confirmed ?Last Taken ?Type sevelamer carbonate 800 mg tablet 800 mg PO TIDWM 09/24/24 12/18/24 11/29/24 History sodium zirconium cyclosilicate 10 10 g PO SUTUTHSA 09/24/24 12/18/24 11/28/24 History gram oral powder packet (Lokelma) Physical Exam Vital Signs: Vital Signs: Last Vital Signs Temp 97.5 F 12/27/24 12:19 Pulse 82 12/27/24 12:39 Resp 16 12/27/24 12:19 BP 130/84 12/27/24 12:39 Pulse Ox 98 12/27/24 12:19 O2 Del Method Room Air 12/27/24 12:19 O2 Flow Rate 40 12/18/24 10:06 FiO2 25 12/21/24 09:57 Oxygen Flow Rate 2 12/18/24 04:35 BMI result Body Mass Index 22.4 Neuro: Other: Lethargic , arousable and knows name and oriented to hospital. Neck supple. Non focal exam. Results Labs 12/26/24 07:43 12/27/24 10:09 Labs: BMP 12/27/24 12/27/24 05:19 10:09 Sodium 142 144 Potassium 6.7 H* D 3.4 D Chloride 105 104 Carbon Dioxide 18 L 27 BUN 161 H 71 H Creatinine 9.98 H* 4.77 H* Calcium 9.1 9.2 Microbiology Microbiology Results: Microbiology 12/18/24 08:11 Blood - Venous Blood Culture - Final No growth after 5 days. 12/18/24 08:11 Blood - Venous Blood Culture - Final No growth after 5 days. Assessment and Plan (1) Acute encephalopathy: Status: Acute metabolic encepahlopathy and infectious etiology more likely. No witnessed Sz. Last EEG in September was slow without Sz. Ct negative. Recom:MRI brain . EEG. Continue Keppra 750mg bid Procedures Date of Service Date of Service: 12/27/24
[2024-12-27 17:35] LABS: Ammonia 41 umol/L (13-55)
--- NOTE | 2024-12-27 21:40 | P.PNNP_ITS ---
Subjective Subjective Date of Service: 12/27/24 Interval history: seen and evaluated this morning she is in dialysis looks lethargic and confused BP better controlled Permacath stable and secured no other events Physical Exam 2 Vital Signs: Vital Signs: Last Vital Signs Temp 97.6 F 12/27/24 19:36 Pulse 88 12/27/24 19:36 Resp 17 12/27/24 19:36 BP 125/67 12/27/24 19:36 Pulse Ox 97 12/27/24 19:36 O2 Del Method Room Air 12/27/24 19:36 O2 Flow Rate 40 12/18/24 10:06 FiO2 25 12/21/24 09:57 Oxygen Flow Rate 2 12/18/24 04:35 BMI result Body Mass Index 22.4 cvs: s1s2 Rs; cta Abd; soft R ij PC Objective Data Labs 12/26/24 07:43 12/27/24 10:09 Labs: Laboratory Results - last 24 hr 12/27/24 12/27/24 12/27/24 05:19 10:09 17:19 Sodium 142 144 Potassium 6.7 H* D 3.4 D Chloride 105 104 Carbon Dioxide 18 L 27 Anion Gap 26 H 16 BUN 161 H 71 H Creatinine 9.98 H* 4.77 H* Estim Creat Clear Calc 4.8 10.2 Estimated GFR 4 10 Random Glucose 101 112 Calcium 9.1 9.2 Ammonia 41 Microbiology Microbiology Results: Microbiology 12/18/24 08:11 Blood - Venous Blood Culture - Final No growth after 5 days. 12/18/24 08:11 Blood - Venous Blood Culture - Final No growth after 5 days. Procedures Date of Service Date of Service: 12/27/24 Assessment & Plan Assessment and plan (1) ESRD (end stage renal disease): Status: Acute Plan 1. ESRD: [facility]; 2. AMS: multifact and w/u as per primary team 3. Severe HTN: on clonidine tid, nifedepine 60 bid, coreg 12.5 bid, hydralazine 100mg tid 4. Renal anemia 5. ID: as per ICU team REC: cont HD [facility]; meds as noted, make up day today for missed HD yesterday ; Time Spent With Patient Time: Total time managing care of this patient today ____ minutes. Progress Note: Quality Stroke Does the patient have a stroke diagnosis?: No
[2024-12-27] MEDS: levETIRAcetam 500 MG TABLET PO (21:59)
[2024-12-28] VITALS (8 sets, daily range): BP systolic 94–165; BP diastolic 57–93; PULSE 73–94; RESP 16–18; TEMP 36.7–36.9; O2SAT 95–98
[2024-12-28 09:37] LABS: C Reactive Protein 10.77 mg/dL (< or = 0.50)
[2024-12-28] MEDS: levETIRAcetam 500 MG TABLET PO ×2 (09:38→21:33)
[2024-12-28] MEDS: Sevelamer Carbonate Tablet 800 MG TABLET PO ×2 (09:38→17:45)
[2024-12-28] MEDS: methADONE HCl 20 MG/2 ML ORAL.CONC 50 MG PO (09:39)
[2024-12-28 09:59] LABS: Erythrocyte Sedimentation Rate 56 MM/HR (0-20)
--- NOTE | 2024-12-28 10:21 | P.PNIM_ITS ---
Subjective Subjective Date of Service: 12/28/24 Interval History: seen and evaluated this morning looks frail and confused BP runs soft Permacath stable and secured no other events Review of Systems Review of Systems: Yes all other systems are reviewed and are negative Physical Exam 2 Vital Signs: Vital Signs: Last Vital Signs Temp 98.4 F 12/28/24 07:45 Pulse 94 12/28/24 09:49 Resp 17 12/28/24 07:45 BP 112/66 12/28/24 09:49 Pulse Ox 97 12/28/24 07:45 O2 Del Method Room Air 12/28/24 07:45 O2 Flow Rate 40 12/18/24 10:06 FiO2 25 12/21/24 09:57 Oxygen Flow Rate 2 12/18/24 04:35 BMI result Body Mass Index 22.4 Const: Other: Constitutional : awake and interactive, looks frail, not in distress Neck : Normal inspection, Supple Cardiovascular : RRR, no JVP, no lower extremity edema Respiratory : good bilateral air entry, no crackles, wheezes or rhonchi Gastrointestinal: soft, lax, Normal bowel sounds, Non tender Skin : Warm, Dry, bruises , Dialysis cath chest wall covered with dressing, no bleeding or rash Neurological : Alert & oriented to self and place, hypoactive, No focal deficit Objective Data Active Medications Acetaminophen (Acetaminophen 325 Mg Tablet) 975 mg PO Q6H PRN PRN Reason: Headache/Pain, Scale 1-10 Last Admin: 12/27/24 11:19 Dose: 975 mg Documented By: PADMINI Carvedilol (Carvedilol 12.5 Mg Tablet) 12.5 mg PO BID [facility]; Protocol Last Admin: 12/28/24 09:49 Dose: Not Given Documented By: GURMEET Non-Admin Reason: Physician Held Med Clonidine HCl (Clonidine Hcl 0.1 Mg Tablet) 0.1 mg PO TID [facility]; Protocol Last Admin: 12/28/24 09:50 Dose: Not Given Documented By: GURMEET Non-Admin Reason: Physician Held Med Famotidine (Famotidine/Pf 20 Mg/2 Ml Vial) 20 mg IVPUSH Q48H [facility] Last Admin: 12/26/24 10:30 Dose: 20 mg Documented By: JERMAINE Heparin Sodium (Porcine) (Heparin Sodium,Porcine 5,000 Unit/Ml Vial) 5,000 unit SUBCUT Q12H [facility] Last Admin: 12/20/24 08:32 Dose: Not Given Documented By: VINICIO Non-Admin Reason: Physician Held Med Hydralazine HCl (Hydralazine Hcl 50 Mg Tablet) 100 mg PO TID [facility]; Protocol Last Admin: 12/28/24 09:51 Dose: Not Given Documented By: GURMEET Non-Admin Reason: Previously Administered Levetiracetam (Levetiracetam 500 Mg Tablet) 500 mg PO BID [facility] Last Admin: 12/28/24 09:38 Dose: 500 mg Documented By: GURMEET Methadone HCl (Methadone Hcl 20 Mg/2 Ml Oral.Conc) 50 mg PO DAILY@0800 [facility] Last Admin: 12/28/24 09:39 Dose: 50 mg Documented By: GURMEET Co-signed By: MALISSA Nifedipine (Nifedipine Er 60 Mg Tab.Er.24) 60 mg PO BID [facility]; Protocol Last Admin: 12/27/24 21:59 Dose: 60 mg Documented By: GABO Sevelamer Carbonate (Sevelamer Carbonate Tablet 800 Mg Tablet) 800 mg PO TIDWM [facility] Last Admin: 12/28/24 09:38 Dose: 800 mg Documented By: GURMEET Sodium Zirconium Cyclosilicate (Sodium Zirconium Cyclosilicate 10 Gm Powd.Pack) 10 gm PO SUTUTHSA [facility] Last Admin: 12/27/24 22:15 Dose: Not Given Documented By: GABO Non-Admin Reason: K= therapeutic Labs 12/26/24 07:43 12/27/24 10:09 Labs: Laboratory Results - last 24 hr 12/27/24 12/27/24 12/28/24 10:09 17:19 08:38 ESR 56 H Anion Gap 16 Estim Creat Clear Calc 10.2 Estimated GFR 10 Random Glucose 112 Calcium 9.2 Ammonia 41 C-Reactive Protein 10.77 H Assessment and Plan (1) Opioid use disorder: Status: Acute (2) Status epilepticus: Status: Acute (3) Acute respiratory failure: Status: Acute (4) ESRD (end stage renal disease): Status: Acute Plan a 49 year old female with pertinent history of ESRD on hemodialysis Thursday/Thursday/Chava with history of noncompliance, seizure disorder, anemia of chronic kidney disease, polysubstance IV drug use disorder on methadone who was recently admitted for hypertensive urgency and left AMA on 11/27. Patient is blood culture grew VRE and she was called back to the ER. # Acute toxic\metabolic encephalopathy Due to in hospital delerium , anoxic injury, medicaitons EEG , No evidence of seizure disorder. switch Kepra to PO check blood cultures to rule out any recurrence of bacteremia, no other signs of infection, hold on starting antibiotics now Valium dose prn for restlessness redirection HCP invoked # Lethargy improved could be related to Keppra high dose will need to monitor for any new infection increase physical activity as tolerated # Physical deconditioning PT eval # recent C diff infection Hold p.o. vancomycin for now # ESRD on hemodialysis MWF, Nephrology following [facility] IR evaluated her Permacath , looks good, to continue dialysis MWF # Hypertensive urgency BP runs soft, to hold all for now and monitor Increased Hydralazine to 100 mg tid Keep Nifedipine at 60 (decreased from bid) Continue home dose Clonidine and Carvedilol # Seizure disorder on IV Keppra # Polysubstance use disorder: Consulted Addiction Team. Patient on methadone, to restart tomorrow if more alert # recent bacteremia with VRE Was on PO linezolid for 28 days. finished by now. Will monitor and repeat blood cultures as needed. stop all antibiotics as blood cultures negative from 12/18 Pending repeated blood cultures 12/28 DVT prophylaxis: Heparin Full code Admit as inpatient and will require overnight minimum hospital stay for blood pressure control, encephalopathy, which is not possible in a lesser acute setting. Quality Stroke Does the patient have a stroke diagnosis?: No VTE Prior VTE?: No VTE Risk Level:: Medical - moderate - high VTE Device Contraindication: Treatment Not Indicated VTE Drug Contraindication: N/A - Med Ordered
--- NOTE | 2024-12-28 13:04 | MHC.CLN ---
F/U DIET RX: CHOPPED. RECEIVING ENSURE PLUS HIGH PROTEIN (1050 KCALS, 60 G PROTEIN) TO PROMOTE WOUND HEALING. PO INTAKE VARIABLE, USUALLY 50-100%. SKIN WITH DTIs TO MEDIAL BACK AND COCCYX AND STAGE II PRESSURE INJURY TO RIGHT SHOULDER. CONTINUE TO MONITOR PO INTAKE AND WOUND HEALING.
--- NOTE | 2024-12-28 15:43 | MHC.CM.PN ---
per rounds pt ready for dc no beds at thsi time
[2024-12-28] MEDS: cloNIDine HCL 0.1 MG TABLET PO ×2 (15:59→21:35)
[2024-12-28] MEDS: hydrALAZINE HCl 50 MG TABLET 100 MG PO ×2 (15:59→21:33)
--- NOTE | 2024-12-28 16:04 | MHC.SL.SWA ---
Speech Pathologist Impression: Mild oropharyngeal dysphagia d/t missing dentition and recent extubation Risk of Aspiration Due to: Weakness Dysphonia (question if baseline voice) Dysphasia Diet Status: Liquid Consistency and Strategies for Safe Swallow: Liquid Intake Recommendation: Thin Liquid Intake Strategies: Small Sips Solid Food Consistency: Dietary Recommendations: Chopped/Advanced (NDD3) Additional Modifications to Solid Foods: Oral Medication Intake: Whole with Puree Please contact the pharmacy regarding appropriate crushable or liquid drug formulations that are available whenever modified delivery is recommended. Compensatory Strategies and Precautions to be Taken for Safe Swallow: Sitting Upright (90 deg) Small Bites and Sips Alternate Liquids/Solids Rate of Ingestion Change Supervision While Eating and Drinking for Safe Swallow: Intermittent Supervision Foods to Avoid: Swallowing Recommended Treatments: Compens. Strategy Educat. Recommendation for Speech: Inpatient Speech Therapy Comment: Pt seen for dysphagia treatment. RN consulted. Pt tolerating NDD3 with thins without difficulty, no overt s/s of aspiration across several ounces of intake. Pt denied dysphagia but endorsed harsh voice quality persists. POC reviewed with pt who agrees with DIRECTOR OF DIVERSITY AND INCLUSION monitoring PO tolerance over 1-2 more treatments. Frequency/Duration: Date Range for Service Req: Timeline to reassess: Assistant Professor Nurse Education Clinican/Clinical Fellow: No Supervisory Statement: I have reviewed and agree with the student/clinical fellow's documentation: N/A Speech Language Pathologist: Pita Roland M.S., CCC-DIRECTOR OF DIVERSITY AND INCLUSION
[2024-12-28] MEDS: carvediloL 12.5 MG TABLET PO (21:35)
--- NOTE | 2024-12-28 22:43 | P.PNNP_ITS ---
Subjective Subjective Date of Service: 12/28/24 Interval history: seen and evaluated this morning looks frail and confused BP runs soft Permacath stable and secured no other events Physical Exam 2 Vital Signs: Vital Signs: Last Vital Signs Temp 98.3 F 12/28/24 19:42 Pulse 90 12/28/24 21:35 Resp 18 12/28/24 19:42 BP 122/68 12/28/24 21:35 Pulse Ox 97 12/28/24 19:42 O2 Del Method Room Air 12/28/24 19:42 O2 Flow Rate 40 12/18/24 10:06 FiO2 25 12/21/24 09:57 Oxygen Flow Rate 2 12/18/24 04:35 BMI result Body Mass Index 22.4 cvs: s1s2 RS; cta Abd; soft Objective Data Labs 12/26/24 07:43 12/27/24 10:09 Labs: Laboratory Results - last 24 hr 12/28/24 08:38 ESR 56 H C-Reactive Protein 10.77 H Microbiology Microbiology Results: Microbiology 12/18/24 08:11 Blood - Venous Blood Culture - Final No growth after 5 days. 12/18/24 08:11 Blood - Venous Blood Culture - Final No growth after 5 days. Procedures Date of Service Date of Service: 12/28/24 Assessment & Plan Assessment and plan (1) ESRD (end stage renal disease): Status: Acute Plan 1. ESRD: [facility]; 2. AMS: multifact and w/u as per primary team 3. Severe HTN: on clonidine tid, nifedepine 60 bid, coreg 12.5 bid, hydralazine 100mg tid 4. Renal anemia 5. ID: as per ICU team REC: cont HD mwf; meds as noted, can reduce nifedepine as bp low ; Time Spent With Patient Time: Total time managing care of this patient today ____ minutes. Progress Note: Quality Stroke Does the patient have a stroke diagnosis?: No
[2024-12-29] VITALS (8 sets, daily range): BP systolic 105–155; BP diastolic 63–81; PULSE 84–96; RESP 16–18; TEMP 36.1–36.8; O2SAT 95–98
[2024-12-29] MEDS: Omeprazole 20 MG CAPSULE.DR PO (05:26)
[2024-12-29] MEDS: Sevelamer Carbonate Tablet 800 MG TABLET PO ×3 (09:43→17:08)
[2024-12-29] MEDS: levETIRAcetam 500 MG TABLET PO (09:43)
[2024-12-29] MEDS: carvediloL 12.5 MG TABLET PO (09:44)
[2024-12-29] MEDS: cloNIDine HCL 0.1 MG TABLET PO (09:45)
[2024-12-29] MEDS: hydrALAZINE HCl 50 MG TABLET 100 MG PO (09:46)
[2024-12-29] MEDS: methADONE HCl 20 MG/2 ML ORAL.CONC 50 MG PO (09:46)
--- NOTE | 2024-12-29 15:23 | HO.PM.IMPN ---
Subjective Subjective Date of Service: 12/29/24 Interval History: Seen and examined this morning Follow-up for placement No overnight events-no specific complaints this morning Tolerating diet, voiding without difficulty Review of Systems Review of Systems: Yes all other systems are reviewed and are negative Constitutional Constitutional: Denies chills and Denies fever(s) Cardiovascular Cardiovascular: Denies chest pain, Denies palpitations and Denies dyspnea Respiratory Respiratory: Denies dyspnea Endocrine Endocrine: Denies palpitations Physical Exam Vital Signs: Vital Signs: Last Vital Signs Temp 97.0 F 12/29/24 07:46 Pulse 96 12/29/24 09:44 Resp 16 12/29/24 07:46 BP 151/81 H 12/29/24 09:46 Pulse Ox 97 12/29/24 07:46 O2 Del Method Room Air 12/29/24 07:46 O2 Flow Rate 40 12/18/24 10:06 FiO2 25 12/21/24 09:57 Oxygen Flow Rate 2 12/18/24 04:35 BMI result Body Mass Index 22.4 Const: General: cooperative, comfortable, no acute distress, alert and awake Nutritional Appearance: thin Orientation/consciousness: oriented to person and oriented to place Resp: Effort & Inspection: normal respiratory effort, able to speak in complete sentences, no respiratory distress and no use of accessory muscles Cardio: Rate: regular rate GI: Inspection: No distended Palpation (GI): Soft to palpation Neuro: General: oriented to person and oriented to place Objective Data Active Medications Acetaminophen (Acetaminophen 325 Mg Tablet) 975 mg PO Q6H PRN PRN Reason: Headache/Pain, Scale 1-10 Last Admin: 12/27/24 11:19 Dose: 975 mg Documented By: PADMINI Carvedilol (Carvedilol 12.5 Mg Tablet) 12.5 mg PO BID [facility]; Protocol Last Admin: 12/29/24 09:44 Dose: 12.5 mg Documented By: SULEMA Clonidine HCl (Clonidine Hcl 0.1 Mg Tablet) 0.1 mg PO TID [facility]; Protocol Last Admin: 12/29/24 09:45 Dose: 0.1 mg Documented By: SULEMA Heparin Sodium (Porcine) (Heparin Sodium,Porcine 5,000 Unit/Ml Vial) 5,000 unit SUBCUT Q12H [facility] Last Admin: 12/20/24 08:32 Dose: Not Given Documented By: VINICIO Non-Admin Reason: Physician Held Med Hydralazine HCl (Hydralazine Hcl 50 Mg Tablet) 100 mg PO TID [facility]; Protocol Last Admin: 12/29/24 09:46 Dose: 100 mg Documented By: SULEMA Levetiracetam (Levetiracetam 500 Mg Tablet) 500 mg PO BID [facility] Last Admin: 12/29/24 09:43 Dose: 500 mg Documented By: SULEMA Methadone HCl (Methadone Hcl 20 Mg/2 Ml Oral.Conc) 50 mg PO DAILY@0800 [facility] Last Admin: 12/29/24 09:46 Dose: 50 mg Documented By: SULEMA Co-signed By: JENNIFER Nifedipine (Nifedipine Er 60 Mg Tab.Er.24) 60 mg PO BID [facility]; Protocol Last Admin: 12/27/24 21:59 Dose: 60 mg Documented By: GABO Omeprazole (Omeprazole 20 Mg Capsule.Dr) 20 mg PO DAILY@0630 [facility] Last Admin: 12/29/24 05:26 Dose: 20 mg Documented By: KERLINE Sevelamer Carbonate (Sevelamer Carbonate Tablet 800 Mg Tablet) 800 mg PO TIDWM [facility] Last Admin: 12/29/24 12:56 Dose: 800 mg Documented By: SULEMA Sodium Zirconium Cyclosilicate (Sodium Zirconium Cyclosilicate 10 Gm Powd.Pack) 10 gm PO SUTUTHSA [facility] Last Admin: 12/27/24 22:15 Dose: Not Given Documented By: GABO Non-Admin Reason: K= therapeutic Labs 12/26/24 07:43 12/27/24 10:09 Microbiology Microbiology Results: Microbiology 12/28/24 12:24 Blood Culture - Preliminary Blood - Venous No growth after 24 hours. 12/28/24 11:13 Blood Culture - Preliminary Blood - Venous No growth after 24 hours. Assessment and Plan (1) Acute encephalopathy: Status: Acute Plan a 49 year old female with pertinent history of ESRD on hemodialysis Thursday/Thursday/Thursday with history of noncompliance, seizure disorder, anemia of chronic kidney disease, polysubstance IV drug use disorder on methadone who was recently admitted for hypertensive urgency and left AMA on 11/27. Patient is blood culture grew VRE and she was called back to the ER. # Acute toxic\metabolic encephalopathy Due to in hospital delerium , anoxic injury, medicaitons EEG , No evidence of seizure disorder. switch Kepra to PO Blood cultures pending, no other signs of infection, hold on starting antibiotics now Valium dose prn for restlessness redirection HCP invoked # Lethargy improved could be related to Keppra high dose will need to monitor for any new infection increase physical activity as tolerated # Physical deconditioning PT eval->acute rehab # recent C diff infection Hold p.o. vancomycin for now # ESRD on hemodialysis MWF, Nephrology following [facility] IR evaluated her Permacath , looks good, to continue dialysis MWF # Hypertensive urgency Continue Coreg, clonidine, hydralazine. Nifedipine on hold # Seizure disorder on IV Keppra # Polysubstance use disorder: Consulted Addiction Team. methadone restarted # recent bacteremia with VRE Was on PO linezolid for 28 days. finished by now. Will monitor and repeat blood cultures as needed. stop all antibiotics as blood cultures negative from 12/18 Pending repeated blood cultures 12/28 DVT prophylaxis: Mechanical devices, Heparin on hold ?reason Full code Admit as inpatient and will require overnight minimum hospital stay for blood pressure control, encephalopathy, which is not possible in a lesser acute setting. Quality Stroke Does the patient have a stroke diagnosis?: No VTE Prior VTE?: No VTE Risk Level:: Medical - moderate - high VTE Device Contraindication: Treatment Not Indicated VTE Drug Contraindication: N/A - Med Ordered
--- NOTE | 2024-12-29 17:16 | MHC.SL.SWA ---
Speech Pathologist Impression: Risk of Aspiration Due to: Dysphasia Diet Status: Liquid Consistency and Strategies for Safe Swallow: Liquid Intake Recommendation: Thin Liquid Intake Strategies: Small Sips Solid Food Consistency: Dietary Recommendations: Chopped/Advanced (NDD3) Additional Modifications to Solid Foods: Oral Medication Intake: Whole with Puree Please contact the pharmacy regarding appropriate crushable or liquid drug formulations that are available whenever modified delivery is recommended. Compensatory Strategies and Precautions to be Taken for Safe Swallow: Sitting Upright (90 deg) Small Bites and Sips Alternate Liquids/Solids Rate of Ingestion Change Supervision While Eating and Drinking for Safe Swallow: Intermittent Supervision Foods to Avoid: Swallowing Recommended Treatments: Compens. Strategy Educat. Recommendation for Speech: Inpatient Speech Therapy Comment: Patient seen at breakfast. Patient was engaged in the meal when PEDIATRICIAN arrived, was very pleasant, but noting no memory of being in the ICU, being intubated, having difficulty eating. Patient on PEDIATRICIAN service due to level of confusion s/p extubation and weak upper extremity (could not self feed). Swallow was otherwise WFL. Patient is now oriented, appropriate, able to independently self feed without difficulty. Recommend UPGRADE diet to Regular, continue on thin liquids, pills whole with liquid. Further Speech therapy not indicated, will d/c from speech service. Please re-contact if any additional concerns arise. Frequency/Duration: Date Range for Service Req: Timeline to reassess: Data Storage Specialist Clinican/Clinical Fellow: No Supervisory Statement: I have reviewed and agree with the student/clinical fellow's documentation: N/A Speech Language Pathologist: Pita Roland M.S., CCC-PEDIATRICIAN
--- NOTE | 2024-12-29 22:56 | P.PNNP_ITS ---
Subjective Subjective Date of Service: 12/29/24 Interval history: Seen and examined this morning Follow-up for placement No overnight events-no specific complaints this morning Tolerating diet, voiding without difficulty Physical Exam 2 Vital Signs: Vital Signs: Last Vital Signs Temp 97 F 12/29/24 19:40 Pulse 92 12/29/24 19:40 Resp 18 12/29/24 19:40 BP 155/76 H 12/29/24 19:40 Pulse Ox 98 12/29/24 19:40 O2 Del Method Room Air 12/29/24 19:40 O2 Flow Rate 40 12/18/24 10:06 FiO2 25 12/21/24 09:57 Oxygen Flow Rate 2 12/18/24 04:35 BMI result Body Mass Index 22.4 cvs: s1s2 Rs; cta Abd; soft Objective Data Labs 12/26/24 07:43 12/27/24 10:09 Microbiology Microbiology Results: Microbiology 12/28/24 12:24 Blood - Venous Blood Culture - Preliminary No growth after 24 hours. 12/28/24 11:13 Blood - Venous Blood Culture - Preliminary No growth after 24 hours. 12/18/24 08:11 Blood - Venous Blood Culture - Final No growth after 5 days. 12/18/24 08:11 Blood - Venous Blood Culture - Final No growth after 5 days. Procedures Date of Service Date of Service: 12/29/24 Assessment & Plan Assessment and plan (1) ESRD (end stage renal disease): Status: Acute Plan 1. ESRD: [facility]; 2. AMS: multifact and w/u as per primary team 3. Severe HTN: on clonidine tid, nifedepine 60 bid, coreg 12.5 bid, hydralazine 100mg tid 4. Renal anemia 5. ID: as per ICU team REC: cont HD mwf; meds as noted, Time Spent With Patient Time: Total time managing care of this patient today ____ minutes. Progress Note: Quality Stroke Does the patient have a stroke diagnosis?: No
[2024-12-30] VITALS (16 sets, daily range): BP systolic 139–229; BP diastolic 90–158; PULSE 89–117; RESP 16–20; TEMP 36.1–37.3; O2SAT 95–99
--- NOTE | 2024-12-30 | ECG_ITS ---
Test Reason : high k Blood Pressure : */* mmHG Vent. Rate : 98 BPM Atrial Rate : 98 BPM P-R Int : 116 ms QRS Dur : 78 ms QT Int : 358 ms P-R-T Axes : 66 -44 42 degrees QTcB Int : 457 ms Sinus rhythm with occasional Premature ventricular complexes Left axis deviation Abnormal ECG When compared with ECG of 27-Dec-2024 06:41, Premature ventricular complexes are now Present Referred By: Rufino Terrazas Electronically Signed By: MATT GUEVARA
--- NOTE | 2024-12-30 02:32 | PM.EVENT ---
Event Note Date of Service: 12/30/24 Event Note: Fall: Patient had a fall in the bathroom. Patient reports he noted to have mild bleeding Obtain CT head, CT C-spine CT Fall precautions Notified RN Hyperkalemia: k is 7.2 thisa AM; pt is in HD. notified Dialysis team. EKG ordered. Time Spent With Patient Time: Total time managing care of this patient today ____ minutes.
--- NOTE | 2024-12-30 03:10 | MHC.PIE ---
p; bed alarm ringing, staff go into room found pt on floor by commode with blood from lips. camera in room with no alarm ringing and no call made on walkie. pt poor memory/forgetful, very unsteady walking. note; bed alarm was on, yellow socks on, falling star on and camera in room. i; notified. ct to abd, head/brain and spine/cervical ordered. nursing sup notified e; pt sent to ct awaiting result
[2024-12-30] MEDS: Omeprazole 20 MG CAPSULE.DR PO (05:34)
[2024-12-30 06:31] LABS: Anion Gap 24 (12-20); Blood Urea Nitrogen 119 mg/dL (9-16); Calcium 10.1 mg/dL (8.4-10.2); Carbon Dioxide 20 mmol/L (22-29); Chloride 102 mmol/L (96-108); Creatinine Clr Calc Pharmacy 6.6; Estimated Glomerular Filt Rate 6; Glucose Random 100 mg/dL (60-115); Potassium 7.2 mmol/L (3.3-5.1); Sodium 139 mmol/L (135-145)
[2024-12-30] MEDS: Acetaminophen 325 MG TABLET 975 MG PO ×2 (07:19→20:01)
[2024-12-30] MEDS: hydrALAZINE HCl 50 MG TABLET 100 MG PO ×3 (08:24→20:02)
[2024-12-30] MEDS: levETIRAcetam 500 MG TABLET PO ×2 (10:00→20:01)
[2024-12-30] MEDS: carvediloL 12.5 MG TABLET PO ×2 (10:00→20:02)
[2024-12-30] MEDS: Sevelamer Carbonate Tablet 800 MG TABLET PO ×3 (10:00→17:54)
[2024-12-30] MEDS: methADONE HCl 20 MG/2 ML ORAL.CONC 50 MG PO (10:01)
[2024-12-30] MEDS: cloNIDine HCL 0.1 MG TABLET PO ×3 (10:02→20:01)
--- NOTE | 2024-12-30 11:09 | MHC.CLN ---
F/U SEEN BY [facility] 12/29 WITH DIET CONSISTENCY UPGRADE TO REGULAR. CONTINUES WITH HD 3 TIMES WEEKLY. LABS REVIEWED. LOW POTASSIUM DIET ORDERED DUE TO ELEVATED POTASSIUM. DIET=REGULAR, LOW POTASSIUM. INTAKE APPEARS TO BE VERY GOOD AT MEALS. SKIN WITH DTI TO COCCYX AND UNSTAGEABLE AREA TO RIGHT SHOULDER. SUPPLEMENT DISCONTINUED WITH MOST RECENT DIET CHANGE. CONTINUE TO MONITOR PO INTAKE AND WOUND HEALING.
[2024-12-30] MEDS: Butalb/Acetamin/Caff 50/325/40 TABLET 1 TAB PO (11:39)
[2024-12-30] MEDS: ondansetron HCL 4 MG/2 ML VIAL IVPUSH (12:52)
--- NOTE | 2024-12-30 13:29 | HO.WOUND ---
Wound Consult: Initial 49yr old?female admitted to [facility] on 12/18/24 - See progress notes and H&P for detailed history.? Wound consult placed for Right Posterior Shoulder and Coccyx.? Patient agreeable to assessment and photo documentation.? Right Scapula Etiology: ??Unstageable Pressure Injury Present on Admission Measurements: 1cm x 1.4cm x 0.2cm Wound Bed: adherent yellow slough Drainage / Odor: yellow drainage small amount no odor Edges: ? well defined [place] wound: red erythema ? No Induration, Fluctuance or Warmth noted Pain: denies Goals of Treatment: ? Santyl for enzymatic debridement Sacrum Etiology: ?Deep Tissue Injury ?Present on Admission Measurements: 0.4cm x 0.4cm Wound Bed: dark maroon nonblanchable tissue Drainage / Odor: red scant drainage Edges: ? attached [place] wound: ? pink slow to salud tissue No Induration, Fluctuance or Warmth noted Pain: denies Goals of Treatment: ?Foam dressing to allow for autolytic healing and protect from friction Recommendations: 1. Turn and Reposition every 2 hours and as needed for patient comfort.? Use pillows or wedges to support off loading positions. 2. Off Load all bony prominences with use of pillows and heel boots if needed.? Apply Preventative foams where needed. ? 3. Monitor for incontinence and moisture control, use barrier creams when needed for prevention and treatment. 4. Provide adequate and supplemental nutrition.? 5. Continue low air loss mattress. 6. When applicable maintain blood glucose levels per Providers order. Sacrum - Off Load Pressure with Q2 hr turns and use of pillows - Routine cleansing.? Apply skin prep allow to dry.? Cover with foam dressing to aid in off loading and protection from friction. Change every 5 days and PRN. Right Scapula - Off Load Pressure with Q2hr turns and use of pillows. Cleanse with normal saline, pat dry. ?Apply barrier to the immediate valencia wound, apply thick layer of Santyl to entire wound bed, cover with saline moist gauze, cover with dry gauze, ABD pad, change Daily. Re-consult wound care Nurse for wound deterioration or wound changes.
--- NOTE | 2024-12-30 14:21 | MHC.CM.PN ---
EMR reviewed and per MD rounds, pt is not medically cleared for discharge due to management of acute toxic/metabolic encephalopathy, and bacteremia with repeat cultures pending. Pt will eventually need rehab placement once medically cleared.
--- NOTE | 2024-12-30 15:35 | HO.PM.IMPN ---
Subjective Subjective Date of Service: 12/30/24 Interval History: seen and examined this morning follow up for placement, encephalopathy fall overnight, pt doesn't remember. appers she hit her head, she has black eye; imaging negative remains confused, forgetful, needs frequent reminders Review of Systems Review of Systems: Yes all other systems are reviewed and are negative Physical Exam Vital Signs: Vital Signs: Last Vital Signs Temp 99.0 F 12/30/24 15:25 Pulse 95 12/30/24 15:25 Resp 18 12/30/24 15:25 BP 164/111 H 12/30/24 11:23 Pulse Ox 99 12/30/24 15:25 O2 Del Method Room Air 12/30/24 15:25 O2 Flow Rate 40 12/18/24 10:06 FiO2 25 12/21/24 09:57 Oxygen Flow Rate 2 12/18/24 04:35 BMI result Body Mass Index 22.4 Const: General: cooperative, comfortable, no acute distress, alert and awake Nutritional Appearance: thin Orientation/consciousness: oriented to person and oriented to place Resp: Effort & Inspection: normal respiratory effort, able to speak in complete sentences, no respiratory distress and no use of accessory muscles Cardio: Rate: regular rate GI: Inspection: No distended Palpation (GI): Soft to palpation Neuro: General: oriented to person and oriented to place Objective Data Active Medications Acetaminophen (Acetaminophen 325 Mg Tablet) 975 mg PO Q6H PRN PRN Reason: Headache/Pain, Scale 1-10 Last Admin: 12/30/24 07:19 Dose: 975 mg Documented By: MALISSA Carvedilol (Carvedilol 12.5 Mg Tablet) 12.5 mg PO BID [facility]; Protocol Last Admin: 12/30/24 10:00 Dose: 12.5 mg Documented By: SULEMA Clonidine HCl (Clonidine Hcl 0.1 Mg Tablet) 0.1 mg PO TID [facility]; Protocol Last Admin: 12/30/24 10:02 Dose: 0.1 mg Documented By: SULEMA Collagenase (Collagenase Clostridium Hist. 30 Gm Tube) 1 appl TOPICAL BID [facility]; Protocol Heparin Sodium (Porcine) (Heparin Sodium,Porcine 5,000 Unit/Ml Vial) 5,000 unit SUBCUT Q12H [facility] Last Admin: 12/20/24 08:32 Dose: Not Given Documented By: VINICIO Non-Admin Reason: Physician Held Med Hydralazine HCl (Hydralazine Hcl 50 Mg Tablet) 100 mg PO TID [facility]; Protocol Last Admin: 12/30/24 08:24 Dose: 100 mg Documented By: MALISSA Levetiracetam (Levetiracetam 500 Mg Tablet) 500 mg PO BID [facility] Last Admin: 12/30/24 10:00 Dose: 500 mg Documented By: SULEMA Methadone HCl (Methadone Hcl 20 Mg/2 Ml Oral.Conc) 50 mg PO DAILY@0800 [facility] Last Admin: 12/30/24 10:01 Dose: 50 mg Documented By: SULEMA Co-signed By: VAMSHI Comments: med delayed, pt in dialysis Nifedipine (Nifedipine Er 60 Mg Tab.Er.24) 60 mg PO BID [facility]; Protocol Last Admin: 12/27/24 21:59 Dose: 60 mg Documented By: GABO Omeprazole (Omeprazole 20 Mg Capsule.Dr) 20 mg PO DAILY@0630 [facility] Last Admin: 12/30/24 05:34 Dose: 20 mg Documented By: KERLINE Sevelamer Carbonate (Sevelamer Carbonate Tablet 800 Mg Tablet) 800 mg PO TIDWM [facility] Last Admin: 12/30/24 12:38 Dose: 800 mg Documented By: SULEMA Sodium Zirconium Cyclosilicate (Sodium Zirconium Cyclosilicate 10 Gm Powd.Pack) 10 gm PO SUTUTHSA [facility] Last Admin: 12/29/24 20:14 Dose: Not Given Documented By: KERLINE Non-Admin Reason: Nausea Labs 12/26/24 07:43 12/30/24 05:41 Labs: Laboratory Results - last 24 hr 12/30/24 05:41 Anion Gap 24 H Estim Creat Clear Calc 6.6 Estimated GFR 6 Random Glucose 100 Calcium 10.1 D Microbiology Microbiology Results: Microbiology 12/28/24 12:24 Blood Culture - Preliminary Blood - Venous No growth after 48 hours. 12/28/24 11:13 Blood Culture - Preliminary Blood - Venous No growth after 48 hours. Assessment and Plan (1) Hypertensive urgency: Status: Acute Plan a 49 year old female with pertinent history of ESRD on hemodialysis Thursday/Thursday/Thursday with history of noncompliance, seizure disorder, anemia of chronic kidney disease, polysubstance IV drug use disorder on methadone who was recently admitted for hypertensive urgency and left AMA on 11/27. Patient is blood culture grew VRE and she was called back to the ER. # Acute toxic\metabolic encephalopathy Due to in hospital delerium , anoxic injury, medications EEG, No evidence of seizure disorder. switch Kepra to PO Blood cultures pending, no other signs of infection, hold on starting antibiotics now redirection HCP invoked # Lethargy improved could be related to Keppra high dose will need to monitor for any new infection increase physical activity as tolerated # Physical deconditioning PT eval->acute rehab # recent C diff infection Hold p.o. vancomycin for now # ESRD on hemodialysis MWF, Nephrology following [facility] IR evaluated her Permacath , looks good, to continue dialysis MWF # Hypertensive urgency BP fluctuating Continue Coreg, clonidine, hydralazine. Nifedipine on hold # Seizure disorder Keppra # Polysubstance use disorder: Consulted Addiction Team. methadone restarted # recent bacteremia with VRE Was on PO linezolid for 28 days. finished by now. Will monitor and repeat blood cultures as needed. stop all antibiotics as blood cultures negative from 12/18 Pending repeated blood cultures 12/28 DVT prophylaxis: Mechanical devices, Heparin on hold ?reason Full code Admit as inpatient and will require overnight minimum hospital stay for blood pressure control, encephalopathy, which is not possible in a lesser acute setting. Quality Stroke Does the patient have a stroke diagnosis?: No VTE Prior VTE?: No VTE Risk Level:: Medical - moderate - high VTE Device Contraindication: Treatment Not Indicated VTE Drug Contraindication: N/A - Med Ordered
[2024-12-30] MEDS: Collagenase Clostridium Hist. 30 GM TUBE 1 APPL TOPICAL (17:54)
--- NOTE | 2024-12-30 18:42 | PC.NURSE ---
Pt received HD this AM, Pt returned to floor, orthostatic BPs ordered, see flowsheet for details. ARACELI Dey made aware all BPs elevated, no new orders. 11:24 Pt endorsing headache and BP 164/111 HR 98, ARACELI Dey aware, dose of fioricet given with fair effect. 15:33 ARACELI Dye made aware pts BP continues to be elevated throughout shift 210/120. At this time pt continues to be confused but is exit seeking stating she wants to go home, pt requiring multiple attempts at redirection, with ok effect, Camera in place, bed alarm on, PA aware, no new orders at this time. Last BP recorded 170/90, pt denies pain at this time.
--- NOTE | 2024-12-30 21:48 | P.PNNP_ITS ---
Subjective Subjective Date of Service: 12/30/24 Interval history: seen and examined this morning follow up for placement, encephalopathy fall overnight, pt doesn't remember. appers she hit her head, she has black eye; imaging negative remains confused, forgetful, needs frequent reminders Physical Exam 2 Vital Signs: Vital Signs: Last Vital Signs Temp 97.9 F 12/30/24 19:06 Pulse 98 12/30/24 19:06 Resp 18 12/30/24 19:06 BP 173/103 H 12/30/24 19:06 Pulse Ox 97 12/30/24 19:06 O2 Del Method Room Air 12/30/24 19:06 O2 Flow Rate 40 12/18/24 10:06 FiO2 25 12/21/24 09:57 Oxygen Flow Rate 2 12/18/24 04:35 BMI result Body Mass Index 22.4 cvs: s1s2 Rs; CTA Abd: soft Objective Data Labs 12/26/24 07:43 12/30/24 05:41 Labs: Laboratory Results - last 24 hr 12/30/24 05:41 Sodium 139 Potassium 7.2 H* D Chloride 102 Carbon Dioxide 20 L Anion Gap 24 H BUN 119 H Creatinine 7.35 H* Estim Creat Clear Calc 6.6 Estimated GFR 6 Random Glucose 100 Calcium 10.1 D Microbiology Microbiology Results: Microbiology 12/28/24 12:24 Blood - Venous Blood Culture - Preliminary No growth after 48 hours. 12/28/24 11:13 Blood - Venous Blood Culture - Preliminary No growth after 48 hours. 12/18/24 08:11 Blood - Venous Blood Culture - Final No growth after 5 days. 12/18/24 08:11 Blood - Venous Blood Culture - Final No growth after 5 days. Procedures Date of Service Date of Service: 12/30/24 Assessment & Plan Assessment and plan (1) ESRD (end stage renal disease): Status: Acute Plan 1. ESRD: usu [facility]; 2. AMS: multifact and w/u as per primary team 3. Severe HTN: on clonidine tid, nifedepine 60 bid, coreg 12.5 bid, hydralazine 100mg tid 4. Renal anemia REC: cont HD mwf; meds as noted, pt seen in HD today hold bp meds if bp soft, as risk of fall Time Spent With Patient Time: Total time managing care of this patient today ____ minutes. Progress Note: Quality Stroke Does the patient have a stroke diagnosis?: No
[2024-12-31 03:33] VITALS: BP 124/83; PULSE 81; RESP 18; TEMP 36.8; O2SAT 97
[2024-12-31] MEDS: Omeprazole 20 MG CAPSULE.DR PO (06:12)
[2024-12-31 06:37] LABS: Hematocrit 32.4 % (37.0-47.0); Hemoglobin 10.1 g/dl (12.0-16.0); Mean Corpuscular HGB Conc 31.2 g/dl (31.0-35.0); Mean Corpuscular Hemoglobin 31.1 pg (27.0-33.0); Mean Corpuscular Volume 99.7 fL (80.0-98.0); PLT CLUMP 1; Red Blood Count 3.25 X10*6/uL (4.20-5.50); Red Cell Distribution Width 18.3 % (11.0-16.0)
[2024-12-31 06:58] LABS: Anion Gap 21 (12-20); Blood Urea Nitrogen 72 mg/dL (9-16); Calcium 9.8 mg/dL (8.4-10.2); Carbon Dioxide 22 mmol/L (22-29); Chloride 103 mmol/L (96-108); Creatinine Clr Calc Pharmacy 8.3; Estimated Glomerular Filt Rate 8; Glucose Random 87 mg/dL (60-115); Potassium 5.9 mmol/L (3.3-5.1); Sodium 140 mmol/L (135-145)
[2024-12-31 07:42] VITALS: BP 122/79; PULSE 82; RESP 20; TEMP 36.9; O2SAT 95
[2024-12-31 07:48] LABS: Mean Platelet Volume 11.7 fL (9.4-12.3); Platelet Count 242 X10*3/uL (160-400); White Blood Count 8.6 X10*3/uL (4.8-10.8)
[2024-12-31] MEDS: cloNIDine HCL 0.1 MG TABLET PO ×3 (09:05→20:37)
[2024-12-31] MEDS: levETIRAcetam 500 MG TABLET PO ×2 (09:05→20:37)
[2024-12-31] MEDS: Sevelamer Carbonate Tablet 800 MG TABLET PO ×2 (09:05→16:31)
[2024-12-31] MEDS: hydrALAZINE HCl 50 MG TABLET 100 MG PO ×3 (09:05→20:37)
[2024-12-31] MEDS: carvediloL 12.5 MG TABLET PO ×2 (09:06→20:37)
[2024-12-31] MEDS: Sodium Zirconium Cyclosilicate 10 GM POWD.PACK PO ×2 (09:06→20:40)
[2024-12-31] MEDS: methADONE HCl 20 MG/2 ML ORAL.CONC 50 MG PO (09:07)
[2024-12-31] MEDS: Collagenase Clostridium Hist. 30 GM TUBE 1 APPL TOPICAL ×2 (09:07→20:38)
--- NOTE | 2024-12-31 10:31 | P.PNIM_ITS ---
Subjective Subjective Date of Service: 12/31/24 Interval History: follow up for placement, encephalopathy remains confused, forgetful, needs frequent reminders Review of Systems Review of Systems: Yes all other systems are reviewed and are negative Physical Exam 2 Vital Signs: Vital Signs: Last Vital Signs Temp 98.5 F 12/31/24 07:42 Pulse 82 12/31/24 07:42 Resp 20 12/31/24 07:42 BP 122/79 12/31/24 07:42 Pulse Ox 95 12/31/24 07:42 O2 Del Method Room Air 12/31/24 07:42 O2 Flow Rate 40 12/18/24 10:06 FiO2 25 12/21/24 09:57 Oxygen Flow Rate 2 12/18/24 04:35 BMI result Body Mass Index 22.4 Appearing in no acute distress lung sounds are clear to auscultation heart regular rate rhythm, clear S1, S2 positive bowel sounds, abdomen is soft, nontender neuro patient is alert x3, no focal deficits Left eye orbital ecchymosis Objective Data Active Medications Acetaminophen (Acetaminophen 325 Mg Tablet) 975 mg PO Q6H PRN PRN Reason: Headache/Pain, Scale 1-10 Last Admin: 12/30/24 20:01 Dose: 975 mg Documented By: SULEMA Carvedilol (Carvedilol 12.5 Mg Tablet) 12.5 mg PO BID [facility]; Protocol Last Admin: 12/31/24 09:06 Dose: 12.5 mg Documented By: SOLEDAD Clonidine HCl (Clonidine Hcl 0.1 Mg Tablet) 0.1 mg PO TID [facility]; Protocol Last Admin: 12/31/24 09:05 Dose: 0.1 mg Documented By: SOLEDAD Collagenase (Collagenase Clostridium Hist. 30 Gm Tube) 1 appl TOPICAL BID [facility]; Protocol Last Admin: 12/31/24 09:07 Dose: 1 appl Documented By: SOLEDAD Heparin Sodium (Porcine) (Heparin Sodium,Porcine 5,000 Unit/Ml Vial) 5,000 unit SUBCUT Q12H [facility] Last Admin: 12/20/24 08:32 Dose: Not Given Documented By: VINICIO Non-Admin Reason: Physician Held Med Hydralazine HCl (Hydralazine Hcl 50 Mg Tablet) 100 mg PO TID [facility]; Protocol Last Admin: 12/31/24 09:05 Dose: 100 mg Documented By: SOLEDAD Levetiracetam (Levetiracetam 500 Mg Tablet) 500 mg PO BID [facility] Last Admin: 12/31/24 09:05 Dose: 500 mg Documented By: SOLEDAD Methadone HCl (Methadone Hcl 20 Mg/2 Ml Oral.Conc) 50 mg PO DAILY@0800 [facility] Last Admin: 12/31/24 09:07 Dose: 50 mg Documented By: SOLEDAD Co-signed By: RAVI Nifedipine (Nifedipine Er 60 Mg Tab.Er.24) 60 mg PO BID [facility]; Protocol Last Admin: 12/27/24 21:59 Dose: 60 mg Documented By: GABO Omeprazole (Omeprazole 20 Mg Capsule.Dr) 20 mg PO DAILY@0630 [facility] Last Admin: 12/31/24 06:12 Dose: 20 mg Documented By: JERED Sevelamer Carbonate (Sevelamer Carbonate Tablet 800 Mg Tablet) 800 mg PO TIDWM [facility] Last Admin: 12/31/24 09:05 Dose: 800 mg Documented By: SOLEDAD Sodium Zirconium Cyclosilicate (Sodium Zirconium Cyclosilicate 10 Gm Powd.Pack) 10 gm PO SUTUTHSA [facility] Last Admin: 12/29/24 20:14 Dose: Not Given Documented By: KERLINE Non-Admin Reason: Nausea Sodium Zirconium Cyclosilicate (Sodium Zirconium Cyclosilicate 10 Gm Powd.Pack) 10 gm PO DAILY [facility] Last Admin: 12/31/24 09:06 Dose: 10 gm Documented By: SOLEDAD Labs 12/31/24 06:13 12/31/24 06:13 Labs: Laboratory Results - last 24 hr 12/31/24 06:13 MCV 99.7 H MCH 31.1 MCHC 31.2 RDW 18.3 H Plt Count 242 D MPV 11.7 Absolute Nucleated RBC 0.000 Nucleated RBC % (auto) 0.0 Anion Gap 21 H Estim Creat Clear Calc 8.3 Estimated GFR 8 Random Glucose 87 Calcium 9.8 Microbiology Microbiology Results: Microbiology 12/28/24 12:24 Blood Culture - Preliminary Blood - Venous No growth after 48 hours. 12/28/24 11:13 Blood Culture - Preliminary Blood - Venous No growth after 48 hours. Assessment and Plan (1) Hypertensive urgency: Status: Acute Plan 49 year old female with pertinent history of ESRD on hemodialysis Thursday/Thursday/Thursday with history of noncompliance, seizure disorder, anemia of chronic kidney disease, polysubstance IV drug use disorder on methadone who was recently admitted for hypertensive urgency and left AMA on 11/27. Patient is blood culture grew VRE and she was called back to the ER. Acute toxic\metabolic encephalopathy Due to in hospital delirium, anoxic injury, medications EEG, No evidence of seizure disorder. switch Kepra to PO Blood cultures neg, no other signs of infection, hold on starting antibiotics now redirection HCP invoked Lethargy improved could be related to Keppra high dose will need to monitor for any new infection increase physical activity as tolerated Physical deconditioning PT eval->acute rehab recent C diff infection Hold p.o. vancomycin for now ESRD on hemodialysis MWF, Nephrology following [facility] IR evaluated her Permacath , looks good, to continue dialysis MWF Hypertensive urgency BP fluctuating Continue Coreg, clonidine, hydralazine. Nifedipine on hold Seizure disorder Keppra Polysubstance use disorder: Consulted Addiction Team. methadone restarted Recent bacteremia with VRE Was on PO linezolid for 28 days. finished by now. Will monitor and repeat blood cultures as needed. stop all antibiotics as blood cultures negative from 12/18 Pending repeated blood cultures 12/28 DVT prophylaxis Mechanical devices, Heparin on hold ?reason Full code Quality Stroke Does the patient have a stroke diagnosis?: No VTE Prior VTE?: No VTE Risk Level:: Medical - moderate - high VTE Device Contraindication: Treatment Not Indicated VTE Drug Contraindication: N/A - Med Ordered
[2024-12-31 16:00] VITALS: BP 130/91; PULSE 93; RESP 18; TEMP 36.8; O2SAT 95
[2024-12-31 19:54] VITALS: BP 133/90; PULSE 88; RESP 16; TEMP 37.1; O2SAT 98
[2024-12-31 20:37] VITALS: BP 133/90; PULSE 88
[2024-12-31 23:18] VITALS: BP 117/75; PULSE 94; RESP 20; TEMP 36.9; O2SAT 96
[2025-01-01] VITALS (8 sets, daily range): BP systolic 110–129; BP diastolic 56–82; PULSE 82–99; RESP 18–20; TEMP 36.3–37.3; O2SAT 98–100
[2025-01-01] MEDS: Omeprazole 20 MG CAPSULE.DR PO (05:19)
[2025-01-01] MEDS: Sevelamer Carbonate Tablet 800 MG TABLET PO ×3 (08:51→17:55)
[2025-01-01] MEDS: levETIRAcetam 500 MG TABLET PO ×2 (08:51→21:29)
[2025-01-01] MEDS: hydrALAZINE HCl 50 MG TABLET 100 MG PO ×3 (08:51→21:31)
[2025-01-01] MEDS: cloNIDine HCL 0.1 MG TABLET PO ×3 (08:51→21:29)
[2025-01-01] MEDS: carvediloL 12.5 MG TABLET PO ×2 (08:51→21:31)
[2025-01-01] MEDS: Sodium Zirconium Cyclosilicate 10 GM POWD.PACK PO ×2 (08:52→09:13)
[2025-01-01] MEDS: methADONE HCl 20 MG/2 ML ORAL.CONC 50 MG PO (08:52)
[2025-01-01] MEDS: Collagenase Clostridium Hist. 30 GM TUBE 1 APPL TOPICAL (09:13)
--- NOTE | 2025-01-01 11:52 | P.PNIM_ITS ---
Subjective Subjective Date of Service: 01/01/25 Interval History: follow up for placement, encephalopathy remains confused, forgetful, needs frequent reminders Review of Systems Review of Systems: Yes all other systems are reviewed and are negative Physical Exam 2 Vital Signs: Vital Signs: Last Vital Signs Temp 98.4 F 01/01/25 08:00 Pulse 82 01/01/25 08:00 Resp 18 01/01/25 08:00 BP 123/79 01/01/25 08:00 Pulse Ox 98 01/01/25 08:00 O2 Del Method Room Air 01/01/25 08:00 O2 Flow Rate 40 12/18/24 10:06 FiO2 25 12/21/24 09:57 Oxygen Flow Rate 2 12/18/24 04:35 BMI result Body Mass Index 22.4 Appearing in no acute distress lung sounds are clear to auscultation heart regular rate rhythm, clear S1, S2 positive bowel sounds, abdomen is soft, nontender neuro patient is alert x3, no focal deficits Objective Data Active Medications Acetaminophen (Acetaminophen 325 Mg Tablet) 975 mg PO Q6H PRN PRN Reason: Headache/Pain, Scale 1-10 Last Admin: 12/30/24 20:01 Dose: 975 mg Documented By: SULEMA Carvedilol (Carvedilol 12.5 Mg Tablet) 12.5 mg PO BID [facility]; Protocol Last Admin: 01/01/25 08:51 Dose: 12.5 mg Documented By: SOLEDAD Clonidine HCl (Clonidine Hcl 0.1 Mg Tablet) 0.1 mg PO TID [facility]; Protocol Last Admin: 01/01/25 08:51 Dose: 0.1 mg Documented By: SOLEDAD Collagenase (Collagenase Clostridium Hist. 30 Gm Tube) 1 appl TOPICAL BID [facility]; Protocol Last Admin: 01/01/25 09:13 Dose: 1 appl Documented By: SOLEDAD Heparin Sodium (Porcine) (Heparin Sodium,Porcine 5,000 Unit/Ml Vial) 5,000 unit SUBCUT Q12H [facility] Last Admin: 12/20/24 08:32 Dose: Not Given Documented By: VINICIO Non-Admin Reason: Physician Held Med Hydralazine HCl (Hydralazine Hcl 50 Mg Tablet) 100 mg PO TID [facility]; Protocol Last Admin: 01/01/25 08:51 Dose: 100 mg Documented By: SOLEDAD Levetiracetam (Levetiracetam 500 Mg Tablet) 500 mg PO BID [facility] Last Admin: 01/01/25 08:51 Dose: 500 mg Documented By: SOLEDAD Methadone HCl (Methadone Hcl 20 Mg/2 Ml Oral.Conc) 50 mg PO DAILY@0800 [facility] Last Admin: 01/01/25 08:52 Dose: 50 mg Documented By: SOLEDAD Co-signed By: ROGELIO Nifedipine (Nifedipine Er 60 Mg Tab.Er.24) 60 mg PO BID [facility]; Protocol Last Admin: 12/27/24 21:59 Dose: 60 mg Documented By: GABO Omeprazole (Omeprazole 20 Mg Capsule.Dr) 20 mg PO DAILY@0630 [facility] Last Admin: 01/01/25 05:19 Dose: 20 mg Documented By: SISSY Sevelamer Carbonate (Sevelamer Carbonate Tablet 800 Mg Tablet) 800 mg PO TIDWM [facility] Last Admin: 01/01/25 08:51 Dose: 800 mg Documented By: SOLEDAD Sodium Zirconium Cyclosilicate (Sodium Zirconium Cyclosilicate 10 Gm Powd.Pack) 10 gm PO SUTUTHSA [facility] Last Admin: 01/01/25 08:52 Dose: 10 gm Documented By: SOLEDAD Sodium Zirconium Cyclosilicate (Sodium Zirconium Cyclosilicate 10 Gm Powd.Pack) 10 gm PO DAILY [facility] Last Admin: 01/01/25 09:13 Dose: 10 gm Documented By: SOLEDAD Labs 12/31/24 06:13 12/31/24 06:13 Assessment and Plan (1) Hypertensive urgency: Status: Acute Plan 49 year old female with pertinent history of ESRD on hemodialysis Thursday/Thursday/Thursday with history of noncompliance, seizure disorder, anemia of chronic kidney disease, polysubstance IV drug use disorder on methadone who was recently admitted for hypertensive urgency and left AMA on 11/27. Patient is blood culture grew VRE and she was called back to the ER. Acute toxic\metabolic encephalopathy Due to in hospital delirium, anoxic injury, medications EEG, No evidence of seizure disorder. switch Kepra to PO Blood cultures neg, no other signs of infection, hold on starting antibiotics now redirection HCP invoked Lethargy improved could be related to Keppra high dose will need to monitor for any new infection increase physical activity as tolerated Physical deconditioning PT eval->acute rehab recent C diff infection Hold p.o. vancomycin for now ESRD on hemodialysis MWF, Nephrology following [facility] IR evaluated her Permacath , looks good, to continue dialysis MWF Hypertensive urgency BP fluctuating Continue Coreg, clonidine, hydralazine. Nifedipine on hold Seizure disorder Keppra Polysubstance use disorder: Consulted Addiction Team. methadone restarted Recent bacteremia with VRE Was on PO linezolid for 28 days. finished by now. Will monitor and repeat blood cultures as needed. stop all antibiotics as blood cultures negative from 12/18 Pending repeated blood cultures 12/28 DVT prophylaxis Mechanical devices, Heparin on hold ?reason Full code Quality Stroke Does the patient have a stroke diagnosis?: No VTE Prior VTE?: No VTE Risk Level:: Medical - moderate - high VTE Device Contraindication: Treatment Not Indicated VTE Drug Contraindication: N/A - Med Ordered
--- NOTE | 2025-01-01 12:20 | MHC.CM.PN ---
Per AIRPLANE CHARTER CLERK, Patient is medically cleared for dc. PT was recommending Acute Rehab but all 3 acute rehabs have denied admission. CM has expanded and updated SNF referrals.CM will continue to follow. AIRPLANE CHARTER CLERK is aware.
[2025-01-01] MEDS: Acetaminophen 325 MG TABLET 975 MG PO (21:41)
[2025-01-02 03:03] VITALS: BP 113/69; PULSE 82; RESP 14; TEMP 37.1; O2SAT 99
[2025-01-02] MEDS: Omeprazole 20 MG CAPSULE.DR PO (06:16)
[2025-01-02 07:43] VITALS: BP 141/89; PULSE 96; RESP 17; TEMP 36.8; O2SAT 98
[2025-01-02] MEDS: Sevelamer Carbonate Tablet 800 MG TABLET PO ×3 (08:41→18:17)
[2025-01-02] MEDS: methADONE HCl 20 MG/2 ML ORAL.CONC 50 MG PO (08:41)
--- NOTE | 2025-01-02 09:35 | P.PNIM_ITS ---
Subjective Subjective Date of Service: 01/02/25 Interval History: Follow up for placement, encephalopathy Alert and oriented X2 very pleasant and cooperative Remains confused, forgetful, needs frequent reminders Review of Systems Review of Systems: Yes all other systems are reviewed and are negative Constitutional Constitutional: Denies body ache(s), Denies chills and Denies fever(s) Neurologic Neurologic: Reports confusion Psychiatric Psychiatric: Reports confusion Physical Exam 2 Vital Signs: Vital Signs: Last Vital Signs Temp 98.2 F 01/02/25 07:43 Pulse 96 01/02/25 07:43 Resp 17 01/02/25 07:43 BP 141/89 H 01/02/25 07:43 Pulse Ox 98 01/02/25 07:43 O2 Del Method Room Air 01/02/25 03:03 O2 Flow Rate 40 12/18/24 10:06 FiO2 25 12/21/24 09:57 Oxygen Flow Rate 2 12/18/24 04:35 BMI result Body Mass Index 22.4 Const: General: cooperative, comfortable, no acute distress, alert, awake and confusion; No acute distress Orientation/consciousness: oriented to person, oriented to place and confusion Resp: Effort & Inspection: normal respiratory effort Auscultation: clear to auscultation bilaterally Cardio: Rate: regular rate Rhythm: regular rhythm Heart sounds: S1 normal heart sound present and S2 normal heart sound present Peripheral pulses: Peripheral pulses 2+ throughout GI: Palpation (GI): Soft to palpation and nontender Auscultation: normal bowel sounds Neuro: General: oriented to person, oriented to place and confusion Objective Data Active Medications Acetaminophen (Acetaminophen 325 Mg Tablet) 975 mg PO Q6H PRN PRN Reason: Headache/Pain, Scale 1-10 Last Admin: 01/01/25 21:41 Dose: 975 mg Documented By: CHASITY Carvedilol (Carvedilol 12.5 Mg Tablet) 12.5 mg PO BID [facility]; Protocol Last Admin: 01/01/25 21:31 Dose: 12.5 mg Documented By: CHASITY Clonidine HCl (Clonidine Hcl 0.1 Mg Tablet) 0.1 mg PO TID [facility]; Protocol Last Admin: 01/01/25 21:29 Dose: 0.1 mg Documented By: CHASITY Collagenase (Collagenase Clostridium Hist. 30 Gm Tube) 1 appl TOPICAL BID [facility]; Protocol Last Admin: 01/01/25 21:38 Dose: Not Given Documented By: CHASITY Non-Admin Reason: Med Not Available Heparin Sodium (Porcine) (Heparin Sodium,Porcine 5,000 Unit/Ml Vial) 5,000 unit SUBCUT Q12H [facility] Last Admin: 12/20/24 08:32 Dose: Not Given Documented By: VINICIO Non-Admin Reason: Physician Held Med Hydralazine HCl (Hydralazine Hcl 50 Mg Tablet) 100 mg PO TID [facility]; Protocol Last Admin: 01/01/25 21:31 Dose: 100 mg Documented By: CHASITY Levetiracetam (Levetiracetam 500 Mg Tablet) 500 mg PO BID [facility] Last Admin: 01/01/25 21:29 Dose: 500 mg Documented By: CHASITY Methadone HCl (Methadone Hcl 20 Mg/2 Ml Oral.Conc) 50 mg PO DAILY@0800 [facility] Last Admin: 01/02/25 08:41 Dose: 50 mg Documented By: ALEC Co-signed By: HANY Nifedipine (Nifedipine Er 60 Mg Tab.Er.24) 60 mg PO BID [facility]; Protocol Last Admin: 12/27/24 21:59 Dose: 60 mg Documented By: GABO Omeprazole (Omeprazole 20 Mg Capsule.Dr) 20 mg PO DAILY@0630 [facility] Last Admin: 01/02/25 06:16 Dose: 20 mg Documented By: CHASITY Sevelamer Carbonate (Sevelamer Carbonate Tablet 800 Mg Tablet) 800 mg PO TIDWM [facility] Last Admin: 01/02/25 08:41 Dose: 800 mg Documented By: ALEC Sodium Zirconium Cyclosilicate (Sodium Zirconium Cyclosilicate 10 Gm Powd.Pack) 10 gm PO SUTUTHSA [facility] Last Admin: 01/01/25 08:52 Dose: 10 gm Documented By: SOLEDAD Sodium Zirconium Cyclosilicate (Sodium Zirconium Cyclosilicate 10 Gm Powd.Pack) 10 gm PO DAILY [facility] Last Admin: 01/01/25 09:13 Dose: 10 gm Documented By: SOLEDAD Labs 12/31/24 06:13 12/31/24 06:13 Labs: Laboratory Results - last 24 hr 01/02/25 06:53 Hold Purple Top SEE NOTE Assessment and Plan (1) ESRD (end stage renal disease): Status: Acute Plan Plan 49 year old female with pertinent history of ESRD on hemodialysis Thursday/Thursday/Thursday with history of noncompliance, seizure disorder, anemia of chronic kidney disease, polysubstance IV drug use disorder on methadone who was recently admitted for hypertensive urgency and left AMA on 11/27. Patient is blood culture grew VRE and she was called back to the ER. Acute toxic\metabolic encephalopathy Due to in hospital delirium, anoxic injury, medications EEG, No evidence of seizure disorder. Keppra PO Blood cultures neg, no other signs of infection, hold on starting antibiotics now Frequent reorientation and redirection HCP invoked Lethargy-Improved Could be related to Keppra high dose Will continue to monitor for any new infection Increase physical activity as tolerated Hyperkalemia 2/2 ESRD HD scheduled for today Physical deconditioning PT eval->acute rehab Awaiting Rehab placement Recent C diff infection Hold p.o. vancomycin for now ESRD on hemodialysis MWF, Nephrology following [facility] IR evaluated her Permacath , looks good, to continue dialysis MWF Hypertensive urgency BP fluctuating Continue Coreg, clonidine, hydralazine. Nifedipine on hold Seizure disorder Keppra Polysubstance use disorder: Addiction Team following Methadone Recent bacteremia with VRE Was on PO linezolid for 28 days, completed. Will monitor and repeat blood cultures as needed. Stopped all antibiotics as blood cultures negative from 12/18 Repeated blood cultures 12/28- NTD DVT prophylaxis Mechanical devices, Heparin Full code Quality Stroke Does the patient have a stroke diagnosis?: No VTE Prior VTE?: No VTE Risk Level:: Medical - moderate - high VTE Device Contraindication: Treatment Not Indicated VTE Drug Contraindication: N/A - Med Ordered
--- NOTE | 2025-01-02 10:27 | MHC.CM.PN ---
PER MD ROUNDS, PT IS MEDICALLY STABLE FOR DC TO STR, HOWEVER THERE HAVE BEEN NO BED OFFERS FOR SHORT TERM OR ACUTE. REFERRAL EXPANDED IN [facility] FAXED TO [facility] FOR REVIEW ([phone]
--- NOTE | 2025-01-02 11:00 | MHC.CLN ---
F/U PO INTAKE 50-100% DIET RX: REGULAR, LOW POTASSIUM SKIN WITH DTI TO COCCYX AND UNSTAGEABLE AREA TO RIGHT SHOULDER RECOMMEND STARTING ENSURE CLEAR TID TO PROMOTE WOUND HEALING SUPP PROVIDES 720KCALS, 24G PROTEIN (SUPP IS RENAL FRIENDLY-NO K+) MONITOR PO INTAKE AND WOUND HEALING.
[2025-01-02 11:18] LABS: Anion Gap 17 (12-20); Blood Urea Nitrogen 37 mg/dL (9-16); Calcium 8.7 mg/dL (8.4-10.2); Carbon Dioxide 28 mmol/L (22-29); Chloride 99 mmol/L (96-108); Creatinine Clr Calc Pharmacy 13.8; Estimated Glomerular Filt Rate 14; Glucose Random 150 mg/dL (60-115); Potassium 3.6 mmol/L (3.3-5.1); Sodium 140 mmol/L (135-145)
[2025-01-02 12:36] VITALS: BP 140/83; PULSE 96; RESP 17; TEMP 36.7; O2SAT 98
[2025-01-02] MEDS: levETIRAcetam 500 MG TABLET PO ×2 (12:38→20:45)
[2025-01-02] MEDS: hydrALAZINE HCl 50 MG TABLET 100 MG PO ×3 (12:38→20:45)
[2025-01-02] MEDS: cloNIDine HCL 0.1 MG TABLET PO ×3 (12:38→20:45)
[2025-01-02] MEDS: carvediloL 12.5 MG TABLET PO ×2 (12:38→20:45)
[2025-01-02] MEDS: Sodium Zirconium Cyclosilicate 10 GM POWD.PACK PO (12:39)
[2025-01-02] MEDS: Collagenase Clostridium Hist. 30 GM TUBE 1 APPL TOPICAL ×2 (12:42→20:45)
--- NOTE | 2025-01-02 14:33 | P.PNNP_ITS ---
Subjective Subjective Date of Service: 01/02/25 Interval history: Seen and examined, events noted HD Pcath working poorly with Qb barely 150-200 Physical Exam 2 Vital Signs: Vital Signs: Last Vital Signs Temp 98.1 F 01/02/25 12:36 Pulse 96 01/02/25 12:36 Resp 17 01/02/25 12:36 BP 140/83 H 01/02/25 12:36 Pulse Ox 98 01/02/25 12:36 O2 Del Method Room Air 01/02/25 12:36 O2 Flow Rate 40 12/18/24 10:06 FiO2 25 12/21/24 09:57 Oxygen Flow Rate 2 12/18/24 04:35 BMI result Body Mass Index 22.4 Const: General: no acute distress and other (Sedated on ventilatory support) Eyes: Sclerae: sclerae normal EOM: EOMs intact bilaterally Neck: Neck: Yes no lymphadenopathy, Yes trachea midline and Yes supple Resp: Effort & Inspection: normal respiratory effort and no respiratory distress Auscultation: clear to auscultation bilaterally Cardio: Rate: regular rate Rhythm: regular rhythm Heart sounds: no gallops, no murmurs and no rubs GI: Palpation (GI): Soft to palpation and Other GI palpation findings present ( Nontender) Auscultation: normal bowel sounds Extrem: Other: Stigmata of skin popping General: Yes no pedal edema, No clubbing and No cyanosis Objective Data Labs 12/31/24 06:13 01/02/25 10:53 Labs: Laboratory Results - last 24 hr 01/02/25 01/02/25 06:53 10:53 Hold Purple Top SEE NOTE Sodium 140 Potassium 3.6 D Chloride 99 Carbon Dioxide 28 Anion Gap 17 BUN 37 H Creatinine 3.53 H Estim Creat Clear Calc 13.8 Estimated GFR 14 Random Glucose 150 H Calcium 8.7 D Microbiology Microbiology Results: Microbiology 12/28/24 11:13 Blood - Venous Blood Culture - Final No growth after 5 days. 12/28/24 12:24 Blood - Venous Blood Culture - Preliminary No growth after 48 hours. 12/18/24 08:11 Blood - Venous Blood Culture - Final No growth after 5 days. 12/18/24 08:11 Blood - Venous Blood Culture - Final No growth after 5 days. Procedures Date of Service Date of Service: 01/02/25 Assessment & Plan Assessment and plan (1) ESRD (end stage renal disease): Status: Acute Plan 1. ESRD: usu m[facility] 2. AMS: improving; multifact and w/u as per primary team 3. Severe HTN: on clonidine tid, nifedepine 60 bid, coreg 12.5 bid, hydralazine 100mg tid 4. Renal anemia 5. Hemoaccess: Pcath working poorly Qb 150-220 depite reprosition PT position REC: replace Pcath by IR , cont HD mwf; meds as noted Time Spent With Patient Time: Total time managing care of this patient today ____ minutes. Progress Note: Quality Stroke Does the patient have a stroke diagnosis?: No
[2025-01-02 16:00] VITALS: BP 137/86; PULSE 95; RESP 16; TEMP 36.8; O2SAT 98
[2025-01-02 20:00] VITALS: BP 139/82; PULSE 104; RESP 16; TEMP 36.8; O2SAT 99
[2025-01-02] MEDS: Heparin Sodium,Porcine 5,000 UNIT/ML VIAL 5000 UNIT SUBCUT (20:46)
[2025-01-03] VITALS (13 sets, daily range): BP systolic 133–152; BP diastolic 69–107; PULSE 86–98; RESP 10–21; TEMP 36.4–37; O2SAT 96–100
[2025-01-03] MEDS: Omeprazole 20 MG CAPSULE.DR PO (06:14)
--- NOTE | 2025-01-03 08:18 | HO.PM.IMPN ---
Subjective Subjective Date of Service: 01/03/25 Interval History: Follow up for placement, encephalopathy Alert and oriented X2 cooperative but very sleepy today Remains forgetful, needs frequent reminders Review of Systems Review of Systems: Yes all other systems are reviewed and are negative Constitutional Constitutional: Denies body ache(s), Denies chills, Reports fatigue and Denies fever(s) Cardiovascular Cardiovascular: Denies chest pain, Denies palpitations and Denies dyspnea Respiratory Respiratory: Denies chest congestion, Denies cough and Denies dyspnea Gastrointestinal Gastrointestinal: Denies abdominal pain Neurologic Neurologic: Reports confusion Psychiatric Psychiatric: Reports confusion Endocrine Endocrine: Reports fatigue and Denies palpitations Physical Exam Vital Signs: Vital Signs: Last Vital Signs Temp 98.6 F 01/03/25 07:23 Pulse 92 01/03/25 07:23 Resp 20 01/03/25 07:23 BP 150/80 H 01/03/25 07:23 Pulse Ox 99 01/03/25 07:23 O2 Del Method Room Air 01/03/25 07:23 O2 Flow Rate 40 12/18/24 10:06 FiO2 25 12/21/24 09:57 Oxygen Flow Rate 2 12/18/24 04:35 BMI result Body Mass Index 22.4 Const: General: cooperative, comfortable, no acute distress, alert, awake, confusion and tired appearing Orientation/consciousness: oriented to person, oriented to place and confusion Resp: Effort & Inspection: normal respiratory effort and able to speak in complete sentences Auscultation: clear to auscultation bilaterally Cardio: Jugular venous distension: no JVD Rate: regular rate Rhythm: regular rhythm Heart sounds: S1 normal heart sound present and S2 normal heart sound present Peripheral pulses: Peripheral pulses 2+ throughout GI: Inspection: Yes normal to inspection Palpation (GI): Soft to palpation and nontender Auscultation: normal bowel sounds Neuro: General: oriented to person, oriented to place and confusion Objective Data Active Medications Acetaminophen (Acetaminophen 325 Mg Tablet) 975 mg PO Q6H PRN PRN Reason: Headache/Pain, Scale 1-10 Last Admin: 01/01/25 21:41 Dose: 975 mg Documented By: CHASITY Carvedilol (Carvedilol 12.5 Mg Tablet) 12.5 mg PO BID [facility]; Protocol Last Admin: 01/02/25 20:45 Dose: 12.5 mg Documented By: KERLINE Clonidine HCl (Clonidine Hcl 0.1 Mg Tablet) 0.1 mg PO TID [facility]; Protocol Last Admin: 01/02/25 20:45 Dose: 0.1 mg Documented By: KERLINE Collagenase (Collagenase Clostridium Hist. 30 Gm Tube) 1 appl TOPICAL BID [facility]; Protocol Last Admin: 01/02/25 20:45 Dose: 1 appl Documented By: KERLINE Heparin Sodium (Porcine) (Heparin Sodium,Porcine 5,000 Unit/Ml Vial) 5,000 unit SUBCUT Q12H [facility] Last Admin: 01/02/25 20:46 Dose: 5,000 unit Documented By: KERLINE Hydralazine HCl (Hydralazine Hcl 50 Mg Tablet) 100 mg PO TID [facility]; Protocol Last Admin: 01/02/25 20:45 Dose: 100 mg Documented By: KERLINE Levetiracetam (Levetiracetam 500 Mg Tablet) 500 mg PO BID [facility] Last Admin: 01/02/25 20:45 Dose: 500 mg Documented By: KERLINE Methadone HCl (Methadone Hcl 20 Mg/2 Ml Oral.Conc) 50 mg PO DAILY@0800 [facility] Last Admin: 01/02/25 08:41 Dose: 50 mg Documented By: ALEC Co-signed By: HANY Nifedipine (Nifedipine Er 60 Mg Tab.Er.24) 60 mg PO BID [facility]; Protocol Last Admin: 12/27/24 21:59 Dose: 60 mg Documented By: GABO Omeprazole (Omeprazole 20 Mg Capsule.Dr) 20 mg PO DAILY@0630 [facility] Last Admin: 01/03/25 06:14 Dose: 20 mg Documented By: KERLINE Sevelamer Carbonate (Sevelamer Carbonate Tablet 800 Mg Tablet) 800 mg PO TIDWM [facility] Last Admin: 01/02/25 18:17 Dose: 800 mg Documented By: ALEC Sodium Zirconium Cyclosilicate (Sodium Zirconium Cyclosilicate 10 Gm Powd.Pack) 10 gm PO SUTUTHSA [facility] Last Admin: 01/01/25 08:52 Dose: 10 gm Documented By: FOSTEKR Sodium Zirconium Cyclosilicate (Sodium Zirconium Cyclosilicate 10 Gm Powd.Pack) 10 gm PO DAILY [facility] Last Admin: 01/02/25 12:39 Dose: 10 gm Documented By: ALEC Labs 12/31/24 06:13 01/02/25 10:53 Labs: Laboratory Results - last 24 hr 01/02/25 10:53 Anion Gap 17 Estim Creat Clear Calc 13.8 Estimated GFR 14 Random Glucose 150 H Calcium 8.7 D Microbiology Microbiology Results: Microbiology 12/28/24 12:24 Blood Culture - Final Blood - Venous No growth after 5 days. 12/28/24 11:13 Blood Culture - Final Blood - Venous No growth after 5 days. Assessment and Plan (1) Hypertensive urgency: Status: Acute Plan 49 year old female with pertinent history of ESRD on hemodialysis Thursday/Thursday/Thursday with history of noncompliance, seizure disorder, anemia of chronic kidney disease, polysubstance IV drug use disorder on methadone who was recently admitted for hypertensive urgency and left AMA on 11/27. Patient is blood culture grew VRE and she was called back to the ER. Acute toxic\metabolic encephalopathy Due to in hospital delirium, anoxic injury, medications EEG, No evidence of seizure disorder. Keppra PO Blood cultures neg Frequent reorientation and redirection HCP invoked Lethargy. Resolved Could be related to Keppra high dose Will continue to monitor for any new infection Increase physical activity as tolerated Hyperkalemia-Resolved 2/2 ESRD HD on thursday Physical deconditioning PT eval->acute rehab Awaiting Rehab placement Recent C diff infection Hold p.o. vancomycin for now ESRD on hemodialysis [facility] MWF, Nephrology following REC-Permacath working poorly Qb 150-220 depite reprosition PT position Replace Permacath by IR Hypertensive urgency BP fluctuating Continue Coreg, clonidine, hydralazine. Nifedipine on hold Seizure disorder Keppra Polysubstance use disorder: Addiction Team following Methadone Recent bacteremia with VRE Was on PO linezolid for 28 days, completed. Will monitor and repeat blood cultures as needed. Stopped all antibiotics as blood cultures negative from 12/18 Repeated blood cultures 12/28- Final culture no growth DVT prophylaxis Mechanical devices, Heparin Full code Quality Stroke Does the patient have a stroke diagnosis?: No VTE Prior VTE?: No VTE Risk Level:: Medical - moderate - high VTE Device Contraindication: Treatment Not Indicated VTE Drug Contraindication: N/A - Med Ordered
[2025-01-03] MEDS: Sevelamer Carbonate Tablet 800 MG TABLET PO ×3 (08:59→18:01)
[2025-01-03] MEDS: levETIRAcetam 500 MG TABLET PO ×2 (08:59→20:11)
[2025-01-03] MEDS: cloNIDine HCL 0.1 MG TABLET PO ×3 (08:59→20:12)
[2025-01-03] MEDS: hydrALAZINE HCl 50 MG TABLET 100 MG PO ×3 (08:59→20:12)
[2025-01-03] MEDS: methADONE HCl 20 MG/2 ML ORAL.CONC 50 MG PO (08:59)
[2025-01-03] MEDS: carvediloL 12.5 MG TABLET PO ×2 (08:59→20:13)
[2025-01-03] MEDS: Sodium Zirconium Cyclosilicate 10 GM POWD.PACK PO (09:00)
[2025-01-03] MEDS: Heparin Sodium,Porcine 5,000 UNIT/ML VIAL 5000 UNIT SUBCUT ×2 (09:00→20:13)
[2025-01-03] MEDS: Collagenase Clostridium Hist. 30 GM TUBE 1 APPL TOPICAL ×2 (09:08→20:15)
--- NOTE | 2025-01-03 15:03 | MHC.CM.PN ---
EMR reviewed and per MD rounds, pt is not medically cleared for discharge, pending permacath placement. This CM received a call from pts sister/HCP Nica, update provided. Nica is aware that we are looking for STR placement, no current bed offers. [facility] referrals updated, and this CM placed a call to [facility] screening department, voicemail left, awaiting return call.
[2025-01-03] MEDS: Midazolam HCl 2 MG/2 ML VIAL 1 MG IVPUSH (15:18)
[2025-01-03] MEDS: fentaNYL citrate/PF 100 MCG/2 ML VIAL 50 MCG IVPUSH (15:18)
[2025-01-04] VITALS (9 sets, daily range): BP systolic 91–137; BP diastolic 58–82; PULSE 73–97; RESP 14–20; TEMP 36.1–36.9; O2SAT 96–100
[2025-01-04] MEDS: Sodium Zirconium Cyclosilicate 10 GM POWD.PACK PO ×2 (01:17→10:34)
--- NOTE | 2025-01-04 08:25 | P.PNIM_ITS ---
Subjective Subjective Date of Service: 01/04/25 Interval History: Follow up for placement, encephalopathy Was seen during dialysis Alert and oriented X2 remains forgetful, needs frequent reminders Review of Systems Review of Systems: Yes all other systems are reviewed and are negative Constitutional Constitutional: Denies body ache(s), Denies chills, Denies fever(s) and Denies headache(s) ENT Ears, Nose, Mouth, and Throat: Denies headache(s) Cardiovascular Cardiovascular: Denies chest pain, Denies palpitations and Denies dyspnea Respiratory Respiratory: Reports no additional respiratory complaints and Denies dyspnea Gastrointestinal Gastrointestinal: Denies abdominal pain Neurologic Neurologic: Reports confusion and Denies headache(s) Psychiatric Psychiatric: Reports confusion Endocrine Endocrine: Denies palpitations Physical Exam 2 Vital Signs: Vital Signs: Last Vital Signs Temp 98.5 F 01/04/25 03:46 Pulse 97 01/04/25 03:46 Resp 18 01/04/25 03:46 BP 137/82 01/04/25 03:46 Pulse Ox 96 01/04/25 03:46 O2 Del Method Room Air 01/04/25 03:46 O2 Flow Rate 2 01/03/25 15:33 FiO2 25 12/21/24 09:57 Oxygen Flow Rate 2 12/18/24 04:35 BMI result Body Mass Index 22.4 Const: General: comfortable, no acute distress, alert, awake and confusion Orientation/consciousness: oriented to person, oriented to place and confusion Resp: Effort & Inspection: normal respiratory effort, able to speak in complete sentences, no cough and not labored Auscultation: clear to auscultation bilaterally Cardio: Rate: regular rate Rhythm: regular rhythm Heart sounds: S1 normal heart sound present and S2 normal heart sound present Peripheral pulses: Peripheral pulses 2+ throughout GI: Inspection: Yes normal to inspection Palpation (GI): Soft to palpation and nontender Auscultation: normal bowel sounds Skin: General skin exam: no rashes or lesions noted Neuro: General: oriented to person, oriented to place and confusion Objective Data Active Medications Acetaminophen (Acetaminophen 325 Mg Tablet) 975 mg PO Q6H PRN PRN Reason: Headache/Pain, Scale 1-10 Last Admin: 01/01/25 21:41 Dose: 975 mg Documented By: CHASITY Carvedilol (Carvedilol 12.5 Mg Tablet) 12.5 mg PO BID [facility]; Protocol Last Admin: 01/03/25 20:13 Dose: 12.5 mg Documented By: SISSY Clonidine HCl (Clonidine Hcl 0.1 Mg Tablet) 0.1 mg PO TID [facility]; Protocol Last Admin: 01/03/25 20:12 Dose: 0.1 mg Documented By: SISSY Collagenase (Collagenase Clostridium Hist. 30 Gm Tube) 1 appl TOPICAL BID [facility]; Protocol Last Admin: 01/03/25 20:15 Dose: 1 appl Documented By: SISSY Heparin Sodium (Porcine) (Heparin Sodium,Porcine 5,000 Unit/Ml Vial) 5,000 unit SUBCUT Q12H [facility] Last Admin: 01/03/25 20:13 Dose: 5,000 unit Documented By: SISSY Hydralazine HCl (Hydralazine Hcl 50 Mg Tablet) 100 mg PO TID [facility]; Protocol Last Admin: 01/03/25 20:12 Dose: 100 mg Documented By: SISSY Levetiracetam (Levetiracetam 500 Mg Tablet) 500 mg PO BID [facility] Last Admin: 01/03/25 20:11 Dose: 500 mg Documented By: SISSY Methadone HCl (Methadone Hcl 20 Mg/2 Ml Oral.Conc) 50 mg PO DAILY@0800 [facility] Last Admin: 01/03/25 08:59 Dose: 50 mg Documented By: ZOLTAN Co-signed By: KITA Nifedipine (Nifedipine Er 60 Mg Tab.Er.24) 60 mg PO BID [facility]; Protocol Last Admin: 12/27/24 21:59 Dose: 60 mg Documented By: GABO Omeprazole (Omeprazole 20 Mg Capsule.Dr) 20 mg PO DAILY@0630 [facility] Last Admin: 01/03/25 06:14 Dose: 20 mg Documented By: KERLINE Sevelamer Carbonate (Sevelamer Carbonate Tablet 800 Mg Tablet) 800 mg PO TIDWM [facility] Last Admin: 01/03/25 18:01 Dose: 800 mg Documented By: MIALGRO Sodium Zirconium Cyclosilicate (Sodium Zirconium Cyclosilicate 10 Gm Powd.Pack) 10 gm PO SUTUTHSA [facility] Last Admin: 01/04/25 01:17 Dose: 10 gm Documented By: SISSY Sodium Zirconium Cyclosilicate (Sodium Zirconium Cyclosilicate 10 Gm Powd.Pack) 10 gm PO DAILY [facility] Last Admin: 01/03/25 09:00 Dose: 10 gm Documented By: ZOLTAN Labs 12/31/24 06:13 01/02/25 10:53 Assessment and Plan (1) ESRD (end stage renal disease): Status: Acute Plan 49 year old female with pertinent history of ESRD on hemodialysis Thursday/Thursday/Thursday with history of noncompliance, seizure disorder, anemia of chronic kidney disease, polysubstance IV drug use disorder on methadone who was recently admitted for hypertensive urgency and left AMA on 11/27. Patient is blood culture grew VRE and she was called back to the ER. Acute toxic\metabolic encephalopathy Due to in hospital delirium, anoxic injury, medications EEG, No evidence of seizure disorder. Blood cultures neg Frequent reorientation and redirection HCP invoked Physical deconditioning PT eval->acute rehab Awaiting Rehab placement Lethargy. Resolved Could be related to Keppra high dose Will continue to monitor for any new infection Increase physical activity as tolerated ESRD on hemodialysis-[facility] Nephrology following Permacath replaced by IR 01/03 Hyperkalemia-Resolved 2/2 ESRD HD on [facility] Recent C diff infection Hold p.o. vancomycin for now Hypertensive urgency- resolved BP fluctuating Continue Coreg, clonidine, hydralazine. Nifedipine on hold Seizure disorder Keppra Polysubstance use disorder: Addiction Team following Methadone Recent bacteremia with VRE Was on PO linezolid for 28 days, completed. Will monitor and repeat blood cultures as needed. Stopped all antibiotics as blood cultures negative from 12/18 Repeated blood cultures 12/28- Final culture no growth DVT prophylaxis Mechanical devices, Heparin Full code Disposition, awaiting placement Quality Stroke Does the patient have a stroke diagnosis?: No VTE Prior VTE?: No VTE Risk Level:: Medical - moderate - high VTE Device Contraindication: Treatment Not Indicated VTE Drug Contraindication: N/A - Med Ordered
[2025-01-04] MEDS: cloNIDine HCL 0.1 MG TABLET PO ×3 (10:31→20:34)
[2025-01-04] MEDS: carvediloL 12.5 MG TABLET PO ×2 (10:33→20:33)
[2025-01-04] MEDS: levETIRAcetam 500 MG TABLET PO ×2 (10:33→20:33)
[2025-01-04] MEDS: Collagenase Clostridium Hist. 30 GM TUBE 1 APPL TOPICAL (10:36)
--- NOTE | 2025-01-04 12:14 | MHC.CLN ---
F/U PO INTAKE VARAIABLE DIET RX: REGULAR, LOW POTASSIUM RECEIVING ENSURE CLEAR TID TO PROMOTE WOUND HEALING SUPP PROVIDES 720KCALS, 24G PROTEIN (SUPP IS RENAL FRIENDLY-NO K+) CONTINUE TO MONITOR PO INTAKE AND WOUND HEALING.
--- NOTE | 2025-01-04 12:22 | HO.WOUND ---
Wound Consult: Follow up 49yr old?female admitted to [facility] [place] on 12/18/24 - See progress notes and H&P for detailed history.? Wound consult follow up for Right Posterior Shoulder and Coccyx.? Patient agreeable to assessment and photo documentation.? Wound beds continue to improve overall no new topical interventions needed. No updated photo at todays assessment. Right Scapula Etiology: ??Unstageable Pressure Injury Present on Admission Measurements: 1cm x 1cm x 0.2cm Wound Bed: adherent yellow slough Drainage / Odor: yellow drainage small amount no odor Edges: ? well defined Valencia wound: red erythema ? No Induration, Fluctuance or Warmth noted Pain: denies Goals of Treatment: ?Continue Santyl for enzymatic debridement No updated photo at todays assessment. Sacrum Etiology: ?Deep Tissue Injury ?Present on Admission Measurements: 0.4cm x 0.4cm Wound Bed: red dark maroon nonblanchable tissue epidermal lifting Drainage / Odor: red scant drainage Edges: ? attached Valencia wound: ? pink slow to salud tissue No Induration, Fluctuance or Warmth noted Pain: denies Goals of Treatment: ?Foam dressing to allow for autolytic healing and protect from friction Recommendations: 1. Turn and Reposition every 2 hours and as needed for patient comfort.? Use pillows or wedges to support off loading positions. 2. Off Load all bony prominences with use of pillows and heel boots if needed.? Apply Preventative foams where needed. ? 3. Monitor for incontinence and moisture control, use barrier creams when needed for prevention and treatment. 4. Provide adequate and supplemental nutrition.? 5. Continue low air loss mattress. 6. When applicable maintain blood glucose levels per Providers order. Sacrum - Off Load Pressure with Q2 hr turns and use of pillows - Routine cleansing.? Apply skin prep allow to dry.? Cover with foam dressing to aid in off loading and protection from friction. Change every 5 days and PRN. Right Scapula - Off Load Pressure with Q2hr turns and use of pillows. Cleanse with normal saline, pat dry. ?Apply barrier to the immediate valencia wound, apply thick layer of Santyl to entire wound bed, cover with saline moist gauze, cover with dry gauze, ABD pad, change Daily. Re-consult wound care Nurse for wound deterioration or wound changes.
[2025-01-04] MEDS: Sevelamer Carbonate Tablet 800 MG TABLET PO ×2 (13:11→16:07)
--- NOTE | 2025-01-04 13:55 | MHC.CM.PN ---
Addendum entered by June Marie 01/04/25 14:02: [facility], [address]/ [place]. [address] [facility], [address], admissions line: [phone]. Original Note: Pt has been medically cleared, she has one SNF interested, not a definite yes, and she will have to have HD set and Methadone arranged. This has not been set up yet, still awaiting a bed offer. CM met with pt. and her mother, they are both confused. Pt. said she went to her Methadone clinic today and it was closed. Pt. is talking about going home to stay with her mother, and said she is in school, so she will go back to that. Her mother did not seem to follow conversation. HCP has been invoked, CM attempted to contact HCP / Nica, she lives in [place], and line busy. CM will follow up with [facility].
[2025-01-04] MEDS: hydrALAZINE HCl 50 MG TABLET 100 MG PO ×2 (16:07→20:33)
[2025-01-04] MEDS: Heparin Sodium,Porcine 5,000 UNIT/ML VIAL 5000 UNIT SUBCUT (20:34)
[2025-01-04] MEDS: Melatonin 3 MG TABLET 6 MG PO (20:34)
--- NOTE | 2025-01-05 02:27 | P.PNNP_ITS ---
Subjective Subjective Date of Service: 01/04/25 Interval history: Follow up for placement, encephalopathy Was seen during dialysis Alert and oriented X2 remains forgetful, needs frequent reminders Physical Exam 2 Vital Signs: Vital Signs: Last Vital Signs Temp 97.1 F 01/04/25 23:19 Pulse 73 01/04/25 23:19 Resp 18 01/04/25 23:19 BP 91/58 L 01/04/25 23:19 Pulse Ox 98 01/04/25 23:19 O2 Del Method Room Air 01/04/25 23:19 O2 Flow Rate 2 01/03/25 15:33 FiO2 25 12/21/24 09:57 Oxygen Flow Rate 2 12/18/24 04:35 BMI result Body Mass Index 22.4 Const: General: no acute distress and other (Sedated on ventilatory support) Eyes: Sclerae: sclerae normal EOM: EOMs intact bilaterally Neck: Neck: Yes no lymphadenopathy, Yes trachea midline and Yes supple Resp: Effort & Inspection: normal respiratory effort and no respiratory distress Auscultation: clear to auscultation bilaterally Cardio: Rate: regular rate Rhythm: regular rhythm Heart sounds: no gallops, no murmurs and no rubs GI: Palpation (GI): Soft to palpation and Other GI palpation findings present ( Nontender) Auscultation: normal bowel sounds Extrem: Other: Stigmata of skin popping General: Yes no pedal edema, No clubbing and No cyanosis Objective Data Labs 12/31/24 06:13 01/02/25 10:53 Microbiology Microbiology Results: Microbiology 12/28/24 12:24 Blood - Venous Blood Culture - Final No growth after 5 days. 12/28/24 11:13 Blood - Venous Blood Culture - Final No growth after 5 days. 12/18/24 08:11 Blood - Venous Blood Culture - Final No growth after 5 days. 12/18/24 08:11 Blood - Venous Blood Culture - Final No growth after 5 days. Procedures Date of Service Date of Service: 01/05/25 Assessment & Plan Assessment and plan (1) ESRD (end stage renal disease): Status: Acute Plan 1. ESRD: [facility] 2. AMS: improving; multifact and w/u as per primary team 3. H/O Severe HTN: BP now running low ; will need to hold/cutback on BP meds and give IVF bolus if needed HB ok, no fever and WBC not elevated was on clonidine tid, nifedepine 60 bid, coreg 12.5 bid, hydralazine 100mg tid 4. Renal anemia 5. Hemoaccess: s/p new Pcath and worked well today REC: hold BP meds and track BP, cont HD mwf; card echo if BP remains low Time Spent With Patient Time: Total time managing care of this patient today ____ minutes. Progress Note: Quality Stroke Does the patient have a stroke diagnosis?: No
[2025-01-05 03:12] VITALS: BP 109/69; PULSE 78; RESP 18; TEMP 36.4; O2SAT 98
[2025-01-05 07:18] VITALS: BP 100/58; PULSE 83; RESP 18; TEMP 36.4; O2SAT 98
[2025-01-05 09:38] VITALS: BMI 16.1
[2025-01-05 10:45] VITALS: BP 99/60; PULSE 85; RESP 18; TEMP 36.7; O2SAT 97
[2025-01-05] MEDS: Sevelamer Carbonate Tablet 800 MG TABLET PO ×2 (11:57→16:26)
--- NOTE | 2025-01-05 14:01 | MHC.CM.PN ---
CM worked on process to get pt. services needed to go to [facility] (HD and Methadone tx.) but then received a call from pt.'s sister / HCP, Nica. She said that she has done some research on [facility] and they have a lot of problems and the care is not good, she does not want pt. to go there. CM explained that other SNF's have declined, and the challenges of finding a place that will take pt.'s ins, and have HD nearby and will arrange for Methadone tx. HCP understands. CM has expanded referral.
[2025-01-05 15:43] VITALS: BP 120/77; PULSE 100; RESP 18; TEMP 36.9; O2SAT 98
--- NOTE | 2025-01-05 15:59 | HO.PM.IMPN ---
Subjective Subjective Date of Service: 01/05/25 Interval History: seen and examined this morning follow up for placement pt reporting nausea, denies abdominal pain refusing am meds, but doesn't remember she refused meds Review of Systems Review of Systems: Yes all other systems are reviewed and are negative Constitutional Constitutional: Denies chills and Denies fever(s) Physical Exam Vital Signs: Vital Signs: Last Vital Signs Temp 98.4 F 01/05/25 15:43 Pulse 100 01/05/25 15:43 Resp 18 01/05/25 15:43 BP 120/77 01/05/25 15:43 Pulse Ox 98 01/05/25 15:43 O2 Del Method Room Air 01/05/25 15:43 O2 Flow Rate 2 01/03/25 15:33 FiO2 25 12/21/24 09:57 Oxygen Flow Rate 2 12/18/24 04:35 BMI result Body Mass Index 16.1 Const: General: cooperative, comfortable, no acute distress, alert and awake Nutritional Appearance: thin Orientation/consciousness: oriented to person and oriented to place HEENT: Other: bruising around left eye improving Resp: Effort & Inspection: normal respiratory effort, able to speak in complete sentences, no respiratory distress and no use of accessory muscles Cardio: Rate: regular rate GI: Inspection: No distended Palpation (GI): Soft to palpation Neuro: General: oriented to person and oriented to place Objective Data Active Medications Acetaminophen (Acetaminophen 325 Mg Tablet) 975 mg PO Q6H PRN PRN Reason: Headache/Pain, Scale 1-10 Last Admin: 01/01/25 21:41 Dose: 975 mg Documented By: CHASITY Carvedilol (Carvedilol 12.5 Mg Tablet) 12.5 mg PO BID [facility]; Protocol Last Admin: 01/05/25 09:17 Dose: Not Given Documented By: JERMAINE Non-Admin Reason: Decreased Blood Pressure Clonidine HCl (Clonidine Hcl 0.1 Mg Tablet) 0.1 mg PO TID [facility]; Protocol Last Admin: 01/05/25 09:17 Dose: Not Given Documented By: JERMAINE Non-Admin Reason: Elevated Blood Pressure Collagenase (Collagenase Clostridium Hist. 30 Gm Tube) 1 appl TOPICAL BID [facility]; Protocol Last Admin: 01/05/25 10:57 Dose: Not Given Documented By: JERMAINE Non-Admin Reason: Patient Refused Heparin Sodium (Porcine) (Heparin Sodium,Porcine 5,000 Unit/Ml Vial) 5,000 unit SUBCUT Q12H [facility] Last Admin: 01/05/25 09:18 Dose: Not Given Documented By: JERMAINE Non-Admin Reason: Patient Refused Hydralazine HCl (Hydralazine Hcl 50 Mg Tablet) 100 mg PO TID [facility]; Protocol Last Admin: 01/05/25 09:18 Dose: Not Given Documented By: JERMAINE Non-Admin Reason: Decreased Blood Pressure Levetiracetam (Levetiracetam 500 Mg Tablet) 500 mg PO BID [facility] Last Admin: 01/05/25 10:57 Dose: Not Given Documented By: JERMAINE Non-Admin Reason: Patient Refused Melatonin (Melatonin 3 Mg Tablet) 6 mg PO BEDTIME [facility] Last Admin: 01/04/25 20:34 Dose: 6 mg Documented By: JERED Methadone HCl (Methadone Hcl 20 Mg/2 Ml Oral.Conc) 50 mg PO DAILY@0800 [facility] Last Admin: 01/05/25 10:57 Dose: Not Given Documented By: JERMAINE Non-Admin Reason: Patient Refused Omeprazole (Omeprazole 20 Mg Capsule.Dr) 20 mg PO DAILY@0630 [facility] Last Admin: 01/05/25 06:10 Dose: Not Given Documented By: JERED Non-Admin Reason: Patient Refused Sevelamer Carbonate (Sevelamer Carbonate Tablet 800 Mg Tablet) 800 mg PO TIDWM [facility] Last Admin: 01/05/25 11:57 Dose: 800 mg Documented By: JERMAINE Sodium Zirconium Cyclosilicate (Sodium Zirconium Cyclosilicate 10 Gm Powd.Pack) 10 gm PO SUTUTHSA [facility] Last Admin: 01/04/25 01:17 Dose: 10 gm Documented By: SISSY Sodium Zirconium Cyclosilicate (Sodium Zirconium Cyclosilicate 10 Gm Powd.Pack) 10 gm PO DAILY [facility] Last Admin: 01/05/25 10:56 Dose: Not Given Documented By: JERMAINE Non-Admin Reason: Patient Refused Labs 12/31/24 06:13 01/02/25 10:53 Assessment and Plan (1) ESRD (end stage renal disease): Status: Acute (2) Drug abuse: Status: Acute (3) Acute encephalopathy: Status: Acute Plan This is a 49 year old female with history of ESRD on hemodialysis Thursday/Thursday/Thursday with history of noncompliance, seizure disorder, anemia of chronic kidney disease, polysubstance IV drug use disorder on methadone who was recently admitted for hypertensive urgency and VRE bacteremia d/c with 28 days of linezolid on 12/03 who was brought to the emergency department on December 18 with altered mental status after being found unresponsive with concern for status epilepticus intubated in the emergency room and admitted to the ICU, downgraded to the medical floor on 12/23 Acute toxic\metabolic encephalopathy Due to in hospital delirium, anoxic injury, medications EEG, No evidence of seizure disorder. Blood cultures neg Frequent reorientation and redirection HCP invoked Hypertensive urgency- resolved BP fluctuating, now low Continue Coreg hold hydralazine, clonidine Nifedipine stopped Physical deconditioning PT eval->acute rehab Awaiting Rehab placement Lethargy. Resolved Could be related to Keppra high dose Will continue to monitor for any new infection Increase physical activity as tolerated ESRD on hemodialysis-[facility] following Permacath replaced by IR 01/03 Hyperkalemia-Resolved 2/2 ESRD HD on [facility] Recent C diff infection Hold p.o. vancomycin for now Seizure disorder Keppra Polysubstance use disorder: Addiction Team following Methadone Recent bacteremia with VRE Was on PO linezolid for 28 days, completed. Will monitor and repeat blood cultures as needed. Stopped all antibiotics as blood cultures negative from 12/18 Repeated blood cultures 12/28- Final culture no growth right scapula - unstageable pressure injury sacrum DTI poa wound care as per wound care nurse. see note for full recommendations DVT prophylaxis Mechanical devices, Heparin Full code Disposition, awaiting placement Quality Stroke Does the patient have a stroke diagnosis?: No VTE Prior VTE?: No VTE Risk Level:: Medical - moderate - high VTE Device Contraindication: Treatment Not Indicated VTE Drug Contraindication: N/A - Med Ordered
[2025-01-05 19:43] VITALS: BP 101/61; PULSE 105; RESP 16; TEMP 37.2; O2SAT 98
[2025-01-05] MEDS: levETIRAcetam 500 MG TABLET PO (19:59)
[2025-01-05] MEDS: carvediloL 12.5 MG TABLET PO (19:59)
[2025-01-05] MEDS: Melatonin 3 MG TABLET 6 MG PO (19:59)
[2025-01-05] MEDS: Heparin Sodium,Porcine 5,000 UNIT/ML VIAL 5000 UNIT SUBCUT (20:01)
[2025-01-05 23:37] VITALS: BP 119/77; PULSE 81; RESP 16; TEMP 36.6; O2SAT 100
[2025-01-06 04:00] VITALS: BP 117/71; PULSE 81; RESP 16; TEMP 37.1; O2SAT 99
[2025-01-06] MEDS: Omeprazole 20 MG CAPSULE.DR PO (05:57)
[2025-01-06 08:00] VITALS: BP 141/87; PULSE 80; RESP 16; TEMP 36.6; O2SAT 99
[2025-01-06] MEDS: methADONE HCl 20 MG/2 ML ORAL.CONC 50 MG PO (08:05)
[2025-01-06] MEDS: Sevelamer Carbonate Tablet 800 MG TABLET PO ×2 (08:05→16:59)
[2025-01-06 10:42] LABS: Anion Gap 18 (12-20); Blood Urea Nitrogen 54 mg/dL (9-16); Calcium 9.1 mg/dL (8.4-10.2); Carbon Dioxide 27 mmol/L (22-29); Chloride 99 mmol/L (96-108); Creatinine Clr Calc Pharmacy 8.8; Estimated Glomerular Filt Rate 10; Glucose Random 141 mg/dL (60-115); Potassium 3.2 mmol/L (3.3-5.1); Sodium 141 mmol/L (135-145)
--- NOTE | 2025-01-06 12:10 | MHC.CLN ---
F/U PO INTAKE VARIABLE, WITH MOST MEALS 75-100%. DIET RX: REGULAR, LOW POTASSIUM RECEIVING ENSURE CLEAR TID TO PROMOTE WOUND HEALING SUPP PROVIDES 720KCALS, 24G PROTEIN (SUPP IS RENAL FRIENDLY-NO K+) VARIANCE IN RECENT WEIGHT HX: 01/05=37.5 KG; 12/26=52 KG; 12/25=43.5 KG. PATIENT NOT IN ROOM SO UNABLE TO OBTAIN ADDITIONAL WEIGHT. CONTINUE TO MONITOR PO INTAKE, WEIGHT AND WOUND HEALING.
--- NOTE | 2025-01-06 12:59 | MHC.CM.PN ---
[facility] REMAINS THE ONLY SNF OFFERING PT A BED PENDING HD ARRANGEMENTS MADE FOR HD @ [facility] IN [place], METHADONE GUEST DOSING, AND PT1 TRANSPORT. SANJAY CALLED [facility] ADMISSIONS [phone] AND WAS INFORMED IT HAD BEEN ASSIGNED TO A REVIEWER ABDULKADIR Reyna [id number] SANJAY LEFT ABDULKADIR RODRIGUES REQUESTING A RETURN CALL WITH ESTIMATED START DATE [facility] FAX: [phone]
--- NOTE | 2025-01-06 14:21 | P.PNIM_ITS ---
Subjective Subjective Date of Service: 01/06/25 Interval History: Seen and examined this morning Follow-up for placement Evaluated during dialysis, patient appears well, sitting up eating Cheerios. Reports that she feels much better today. No abdominal pain, no vomiting Blood pressure improved Review of Systems Review of Systems: Yes all other systems are reviewed and are negative Constitutional Constitutional: Denies chills and Denies fever(s) Cardiovascular Cardiovascular: Denies chest pain, Denies palpitations and Denies dyspnea Respiratory Respiratory: Denies cough and Denies dyspnea Endocrine Endocrine: Denies palpitations Physical Exam 2 Vital Signs: Vital Signs: Last Vital Signs Temp 97.8 F 01/06/25 08:00 Pulse 80 01/06/25 08:00 Resp 16 01/06/25 08:00 BP 141/87 H 01/06/25 08:00 Pulse Ox 99 01/06/25 08:00 O2 Del Method Room Air 01/06/25 08:00 O2 Flow Rate 2 01/03/25 15:33 FiO2 25 12/21/24 09:57 Oxygen Flow Rate 2 12/18/24 04:35 BMI result Body Mass Index 16.1 Const: General: cooperative, comfortable, no acute distress, alert and awake Nutritional Appearance: thin Orientation/consciousness: oriented to person and oriented to place HEENT: Other: bruising around left eye improving Resp: Effort & Inspection: normal respiratory effort, able to speak in complete sentences, no respiratory distress and no use of accessory muscles Cardio: Rate: regular rate GI: Inspection: No distended Palpation (GI): Soft to palpation Neuro: General: oriented to person and oriented to place Objective Data Active Medications Acetaminophen (Acetaminophen 325 Mg Tablet) 975 mg PO Q6H PRN PRN Reason: Headache/Pain, Scale 1-10 Last Admin: 01/01/25 21:41 Dose: 975 mg Documented By: CHASITY Carvedilol (Carvedilol 12.5 Mg Tablet) 12.5 mg PO BID [facility]; Protocol Last Admin: 01/05/25 19:59 Dose: 12.5 mg Documented By: JERED Clonidine HCl (Clonidine Hcl 0.1 Mg Tablet) 0.1 mg PO TID [facility]; Protocol Last Admin: 01/05/25 16:15 Dose: Not Given Documented By: JERMAINE Non-Admin Reason: Hold per Collagenase (Collagenase Clostridium Hist. 30 Gm Tube) 1 appl TOPICAL BID [facility]; Protocol Last Admin: 01/05/25 21:00 Dose: Not Given Documented By: JERED Non-Admin Reason: Previously Administered Heparin Sodium (Porcine) (Heparin Sodium,Porcine 5,000 Unit/Ml Vial) 5,000 unit SUBCUT Q12H [facility] Last Admin: 01/05/25 20:01 Dose: 5,000 unit Documented By: JERED Hydralazine HCl (Hydralazine Hcl 50 Mg Tablet) 100 mg PO TID [facility]; Protocol Last Admin: 01/05/25 09:18 Dose: Not Given Documented By: JERMAINE Non-Admin Reason: Decreased Blood Pressure Levetiracetam (Levetiracetam 500 Mg Tablet) 500 mg PO BID [facility] Last Admin: 01/05/25 19:59 Dose: 500 mg Documented By: JERED Melatonin (Melatonin 3 Mg Tablet) 6 mg PO BEDTIME [facility] Last Admin: 01/05/25 19:59 Dose: 6 mg Documented By: JERED Methadone HCl (Methadone Hcl 20 Mg/2 Ml Oral.Conc) 50 mg PO DAILY@0800 [facility] Last Admin: 01/06/25 08:05 Dose: 50 mg Documented By: VANNESA Co-signed By: GURMEET Omeprazole (Omeprazole 20 Mg Capsule.) 20 mg PO DAILY@0630 [facility] Last Admin: 01/06/25 05:57 Dose: 20 mg Documented By: PRITESH Sevelamer Carbonate (Sevelamer Carbonate Tablet 800 Mg Tablet) 800 mg PO TIDWM [facility] Last Admin: 01/06/25 08:05 Dose: 800 mg Documented By: VANNESA Sodium Zirconium Cyclosilicate (Sodium Zirconium Cyclosilicate 10 Gm Powd.Pack) 10 gm PO SUTUTHSA [facility] Last Admin: 01/05/25 23:31 Dose: Not Given Documented By: JERED Non-Admin Reason: Patient Refused Sodium Zirconium Cyclosilicate (Sodium Zirconium Cyclosilicate 10 Gm Powd.Pack) 10 gm PO DAILY [facility] Last Admin: 01/05/25 10:56 Dose: Not Given Documented By: JERMAINE Non-Admin Reason: Patient Refused Labs 12/31/24 06:13 01/06/25 10:12 Labs: Laboratory Results - last 24 hr 01/06/25 10:12 Anion Gap 18 Estim Creat Clear Calc 8.8 Estimated GFR 10 Random Glucose 141 H Calcium 9.1 Assessment and Plan (1) Acute encephalopathy: Status: Acute (2) ESRD (end stage renal disease): Status: Acute (3) Hypertensive urgency: Status: Acute Plan This is a 49 year old female with history of ESRD on hemodialysis Thursday/Thursday/Thursday with history of noncompliance, seizure disorder, anemia of chronic kidney disease, polysubstance IV drug use disorder on methadone who was recently admitted for hypertensive urgency and VRE bacteremia d/c with 28 days of linezolid on 12/03 who was brought to the emergency department on December 18 with altered mental status after being found unresponsive with concern for status epilepticus intubated in the emergency room and admitted to the ICU, downgraded to the medical floor on 12/23 Acute toxic\metabolic encephalopathy Due to in hospital delirium, anoxic injury, medications EEG, No evidence of seizure disorder. Blood cultures neg Frequent reorientation and redirection HCP invoked Hypertensive urgency BP fluctuating, was very high, then very low. Continued on Coreg hydralazine, clonidine on hold Nifedipine stopped BP 140s/150s systolic today; pt feels much better Physical deconditioning PT eval->acute rehab Awaiting Rehab placement Lethargy. Resolved Could be related to Keppra high dose Increase physical activity as tolerated ESRD on hemodialysis-[facility] following Permacath replaced by IR 01/03 Hyperkalemia-Resolved 2/2 ESRD HD on [facility] Recent C diff infection Hold p.o. vancomycin for now Seizure disorder Keppra Polysubstance use disorder: Addiction Team following Methadone Recent bacteremia with VRE Was on PO linezolid for 28 days, completed. Will monitor and repeat blood cultures as needed. Stopped all antibiotics as blood cultures negative from 12/18 Repeated blood cultures 12/28- Final culture no growth right scapula - unstageable pressure injury sacrum DTI poa wound care as per wound care nurse. see note for full recommendations DVT prophylaxis Mechanical devices, Heparin Full code Disposition, awaiting placement Quality Stroke Does the patient have a stroke diagnosis?: No VTE Prior VTE?: No VTE Risk Level:: Medical - moderate - high VTE Device Contraindication: Treatment Not Indicated VTE Drug Contraindication: N/A - Med Ordered
[2025-01-06 14:55] VITALS: BP 112/76; PULSE 104; RESP 16; TEMP 36.7; O2SAT 96
--- NOTE | 2025-01-06 15:57 | P.PNNP_ITS ---
Subjective Subjective Date of Service: 01/06/25 Interval history: Seen and examined, events noted Physical Exam 2 Vital Signs: Vital Signs: Last Vital Signs Temp 98.1 F 01/06/25 14:55 Pulse 104 H 01/06/25 14:55 Resp 16 01/06/25 14:55 BP 112/76 01/06/25 14:55 Pulse Ox 96 01/06/25 14:55 O2 Del Method Room Air 01/06/25 14:55 O2 Flow Rate 2 01/03/25 15:33 FiO2 25 12/21/24 09:57 Oxygen Flow Rate 2 12/18/24 04:35 BMI result Body Mass Index 16.1 Const: General: no acute distress and other (Sedated on ventilatory support) Eyes: Sclerae: sclerae normal EOM: EOMs intact bilaterally Neck: Neck: Yes no lymphadenopathy, Yes trachea midline and Yes supple Resp: Effort & Inspection: normal respiratory effort and no respiratory distress Auscultation: clear to auscultation bilaterally Cardio: Rate: regular rate Rhythm: regular rhythm Heart sounds: no gallops, no murmurs and no rubs GI: Palpation (GI): Soft to palpation and Other GI palpation findings present ( Nontender) Auscultation: normal bowel sounds Extrem: Other: Stigmata of skin popping General: Yes no pedal edema, No clubbing and No cyanosis Objective Data Labs 12/31/24 06:13 01/06/25 10:12 Labs: Laboratory Results - last 24 hr 01/06/25 10:12 Sodium 141 Potassium 3.2 L Chloride 99 Carbon Dioxide 27 Anion Gap 18 BUN 54 H Creatinine 4.59 H* Estim Creat Clear Calc 8.8 Estimated GFR 10 Random Glucose 141 H Calcium 9.1 Microbiology Microbiology Results: Microbiology 12/28/24 12:24 Blood - Venous Blood Culture - Final No growth after 5 days. 12/28/24 11:13 Blood - Venous Blood Culture - Final No growth after 5 days. 12/18/24 08:11 Blood - Venous Blood Culture - Final No growth after 5 days. 12/18/24 08:11 Blood - Venous Blood Culture - Final No growth after 5 days. Procedures Date of Service Date of Service: 01/06/25 Assessment & Plan Assessment and plan (1) ESRD (end stage renal disease): Status: Acute Plan 1. ESRD: [facility] 2. AMS: improving; multifact and w/u as per primary team 3. H/O Severe HTN: BP now running on low side was on clonidine tid, nifedepine 60 bid, coreg 12.5 bid, hydralazine 100mg tid 4. Renal anemia 5. Hemoaccess: s/p new Pcath and worked well today REC: hold BP meds and track BP, cont HD mwf; card echo if BP remains low will follow w team Time Spent With Patient Time: Total time managing care of this patient today ____ minutes. Progress Note: Quality Stroke Does the patient have a stroke diagnosis?: No
[2025-01-06 15:59] VITALS: BP 134/91; PULSE 108; RESP 16; TEMP 36.9; O2SAT 98
[2025-01-06 19:50] VITALS: BP 141/80; PULSE 110; RESP 16; TEMP 37.5; O2SAT 96
[2025-01-06 22:21] VITALS: BP 141/80; PULSE 110
[2025-01-06] MEDS: levETIRAcetam 500 MG TABLET PO (22:21)
[2025-01-06] MEDS: carvediloL 12.5 MG TABLET PO (22:21)
[2025-01-07 04:00] VITALS: BP 122/83; PULSE 93; RESP 16; TEMP 36.9; O2SAT 100
[2025-01-07] MEDS: Omeprazole 20 MG CAPSULE.DR PO (05:59)
[2025-01-07 06:14] LABS: Hematocrit 32.3 % (37.0-47.0); Hemoglobin 10.4 g/dl (12.0-16.0); Mean Corpuscular HGB Conc 32.2 g/dl (31.0-35.0); Mean Corpuscular Hemoglobin 30.8 pg (27.0-33.0); Mean Corpuscular Volume 95.6 fL (80.0-98.0); Mean Platelet Volume 10.3 fL (9.4-12.3); Platelet Count 262 X10*3/uL (160-400); Red Blood Count 3.38 X10*6/uL (4.20-5.50); Red Cell Distribution Width 16.9 % (11.0-16.0); White Blood Count 6.7 X10*3/uL (4.8-10.8)
[2025-01-07 06:35] LABS: Anion Gap 26 (12-20); Blood Urea Nitrogen 80 mg/dL (9-16); Calcium 9.3 mg/dL (8.4-10.2); Carbon Dioxide 20 mmol/L (22-29); Chloride 101 mmol/L (96-108); Creatinine Clr Calc Pharmacy 5.9; Estimated Glomerular Filt Rate 6; Glucose Random 89 mg/dL (60-115); Potassium 5.3 mmol/L (3.3-5.1); Sodium 142 mmol/L (135-145)
[2025-01-07 08:10] VITALS: BP 142/111; PULSE 93; RESP 18; TEMP 36.7; O2SAT 100
--- NOTE | 2025-01-07 08:14 | HO.PM.IMPN ---
Subjective Subjective Date of Service: 01/07/25 Interval History: Seen and examined this morning Follow-up for placement seems confused, but pleasant, no agiation, has sitter Physical Exam Vital Signs: Vital Signs: Last Vital Signs Temp 98.0 F 01/07/25 08:10 Pulse 93 01/07/25 08:10 Resp 18 01/07/25 08:10 BP 142/111 H 01/07/25 08:10 Pulse Ox 100 01/07/25 08:10 O2 Del Method Room Air 01/07/25 08:10 O2 Flow Rate 2 01/03/25 15:33 FiO2 25 12/21/24 09:57 Oxygen Flow Rate 2 12/18/24 04:35 BMI result Body Mass Index 16.1 Const: Other: General: AO X 2, no acute distress, very skinny Resp: CTA bilateral CVS: S1,S2,RRR GI: +BS, NT, no distention Skin: No rash Neuro: motor grossly intact Psych: appropriate affect Objective Data Active Medications Acetaminophen (Acetaminophen 325 Mg Tablet) 975 mg PO Q6H PRN PRN Reason: Headache/Pain, Scale 1-10 Last Admin: 01/01/25 21:41 Dose: 975 mg Documented By: CHASITY Carvedilol (Carvedilol 12.5 Mg Tablet) 12.5 mg PO BID [facility]; Protocol Last Admin: 01/06/25 22:21 Dose: 12.5 mg Documented By: GABO Clonidine HCl (Clonidine Hcl 0.1 Mg Tablet) 0.1 mg PO TID [facility]; Protocol Last Admin: 01/05/25 16:15 Dose: Not Given Documented By: JERMAINE Non-Admin Reason: Hold per Collagenase (Collagenase Clostridium Hist. 30 Gm Tube) 1 appl TOPICAL BID [facility]; Protocol Last Admin: 01/06/25 22:23 Dose: Not Given Documented By: GABO Non-Admin Reason: no med Heparin Sodium (Porcine) (Heparin Sodium,Porcine 5,000 Unit/Ml Vial) 5,000 unit SUBCUT Q12H [facility] Last Admin: 01/06/25 22:20 Dose: Not Given Documented By: GABO Non-Admin Reason: Patient Refused Hydralazine HCl (Hydralazine Hcl 50 Mg Tablet) 100 mg PO TID [facility]; Protocol Last Admin: 01/05/25 09:18 Dose: Not Given Documented By: JERMAINE Non-Admin Reason: Decreased Blood Pressure Levetiracetam (Levetiracetam 500 Mg Tablet) 500 mg PO BID [facility] Last Admin: 01/06/25 22:21 Dose: 500 mg Documented By: GABO Melatonin (Melatonin 3 Mg Tablet) 6 mg PO BEDTIME PRN PRN Reason: sleep Methadone HCl (Methadone Hcl 20 Mg/2 Ml Oral.Conc) 50 mg PO DAILY@0800 [facility] Last Admin: 01/06/25 08:05 Dose: 50 mg Documented By: VANNESA Co-signed By: GURMEET Omeprazole (Omeprazole 20 Mg Capsule.Dr) 20 mg PO DAILY@0630 [facility] Last Admin: 01/07/25 05:59 Dose: 20 mg Documented By: GABO Sevelamer Carbonate (Sevelamer Carbonate Tablet 800 Mg Tablet) 800 mg PO TIDWM [facility] Last Admin: 01/06/25 16:59 Dose: 800 mg Documented By: VANNESA Sodium Zirconium Cyclosilicate (Sodium Zirconium Cyclosilicate 10 Gm Powd.Pack) 10 gm PO SUTUTHSA [facility] Last Admin: 01/05/25 23:31 Dose: Not Given Documented By: JERED Non-Admin Reason: Patient Refused Labs 01/07/25 05:58 01/07/25 05:59 Labs: Laboratory Results - last 24 hr 01/06/25 01/07/25 01/07/25 10:12 05:58 05:59 MCV 95.6 MCH 30.8 MCHC 32.2 RDW 16.9 H Plt Count 262 MPV 10.3 Absolute Nucleated RBC 0.000 Nucleated RBC % (auto) 0.0 Anion Gap 18 26 H Estim Creat Clear Calc 8.8 5.9 Estimated GFR 10 6 Random Glucose 141 H 89 Calcium 9.1 9.3 Assessment and Plan (1) Acute encephalopathy: Status: Acute (2) ESRD (end stage renal disease): Status: Acute (3) Hypertensive urgency: Status: Acute Plan This is a 49 year old female with history of ESRD on hemodialysis Thursday/Thursday/Thursday with history of noncompliance, seizure disorder, anemia of chronic kidney disease, polysubstance IV drug use disorder on methadone who was recently admitted for hypertensive urgency and VRE bacteremia d/c with 28 days of linezolid on 12/03 who was brought to the emergency department on December 18 with altered mental status after being found unresponsive with concern for status epilepticus intubated in the emergency room and admitted to the ICU, downgraded to the medical floor on 12/23 Acute toxic\metabolic encephalopathy Due to in hospital delirium, anoxic injury, medications EEG, No evidence of seizure disorder. Blood cultures neg Frequent reorientation and redirection HCP invoked Hypertensive urgency BP fluctuating, was very high, then very low. Continued on Coreg hydralazine, clonidine on hold Nifedipine stopped BP 140s/150s systolic today; pt feels much better Physical deconditioning PT eval->acute rehab Awaiting Rehab placement Lethargy. Resolved Could be related to Keppra high dose Increase physical activity as tolerated ESRD on hemodialysis-[facility] following Permacath replaced by IR 01/03 Hyperkalemia-Resolved 2/2 ESRD HD on [facility] Recent C diff infection Hold p.o. vancomycin for now Seizure disorder Keppra Polysubstance use disorder: Addiction Team following Methadone Recent bacteremia with VRE Was on PO linezolid for 28 days, completed. Will monitor and repeat blood cultures as needed. Stopped all antibiotics as blood cultures negative from 12/18 Repeated blood cultures 12/28- Final culture no growth right scapula - unstageable pressure injury sacrum DTI poa wound care as per wound care nurse. see note for full recommendations DVT prophylaxis Mechanical devices, Heparin Full code Disposition, awaiting placement Quality Stroke Does the patient have a stroke diagnosis?: No VTE Prior VTE?: No VTE Risk Level:: Medical - moderate - high VTE Device Contraindication: Treatment Not Indicated VTE Drug Contraindication: N/A - Med Ordered
[2025-01-07] MEDS: levETIRAcetam 500 MG TABLET PO ×2 (09:56→21:10)
[2025-01-07] MEDS: Heparin Sodium,Porcine 5,000 UNIT/ML VIAL 5000 UNIT SUBCUT (09:57)
[2025-01-07] MEDS: carvediloL 12.5 MG TABLET PO ×2 (09:57→21:11)
[2025-01-07] MEDS: Sevelamer Carbonate Tablet 800 MG TABLET PO ×3 (09:57→17:19)
[2025-01-07] MEDS: methADONE HCl 20 MG/2 ML ORAL.CONC 50 MG PO (09:58)
[2025-01-07 11:26] VITALS: BP 121/76; PULSE 86
[2025-01-07 15:11] VITALS: BP 123/81; PULSE 93; RESP 14; TEMP 36.8; O2SAT 97
[2025-01-07] MEDS: Collagenase Clostridium Hist. 30 GM TUBE 1 APPL TOPICAL ×2 (15:28→21:14)
--- NOTE | 2025-01-07 18:33 | PC.NURSE ---
Ultrasound guided IV 1 week outdated. On no IV meds presently and awaiting placement. Ok to leave without IV access per Dr. Huang.
[2025-01-07] MEDS: LORazepam 0.5 MG TABLET 0.25 MG PO (18:50)
[2025-01-07 20:00] VITALS: BP 115/81; PULSE 100; RESP 20; TEMP 36.8; O2SAT 95
--- NOTE | 2025-01-07 20:44 | PC.NURSE ---
2043: Pt hallucinating, seeing people that are not there, pt stated you need to get the windows phone developer that just took my vitals, there walking down the [address]. Pt believing that she is in her home, that she needs to go across the street to get her bags. Very restless through, and agitated. Dr. Moran made aware. New orders placed per SEP. 46: Delirium continues despite medication, Dr. Moran aware. New orders placed. Will continue to reassess. 0600: Pt got no sleep despite medication given, awake and restless throughout entire night, writing things down on her papers constantly, asking for things that are not present, saying people have called her about staff. Sitter at bedside & camera for safety.
[2025-01-07 21:11] VITALS: BP 115/81; PULSE 100
[2025-01-07] MEDS: LORazepam 1 MG TABLET PO (21:12)
[2025-01-07] MEDS: Sodium Zirconium Cyclosilicate 10 GM POWD.PACK PO (23:06)
[2025-01-08] VITALS (8 sets, daily range): BP systolic 97–154; BP diastolic 54–90; PULSE 92–118; RESP 16–20; TEMP 36.7–38.6; O2SAT 95–100
[2025-01-08] MEDS: QUEtiapine Fumarate 50 MG TABLET PO (00:58)
[2025-01-08] MEDS: Omeprazole 20 MG CAPSULE.DR PO (05:30)
[2025-01-08] MEDS: Heparin Sodium,Porcine 5,000 UNIT/ML VIAL 5000 UNIT SUBCUT (12:36)
[2025-01-08] MEDS: levETIRAcetam 500 MG TABLET PO (12:36)
[2025-01-08] MEDS: carvediloL 12.5 MG TABLET PO (12:36)
[2025-01-08] MEDS: Sevelamer Carbonate Tablet 800 MG TABLET PO (12:36)
[2025-01-08] MEDS: methADONE HCl 20 MG/2 ML ORAL.CONC 50 MG PO (12:37)
[2025-01-08] MEDS: Collagenase Clostridium Hist. 30 GM TUBE 1 APPL TOPICAL (12:47)
--- NOTE | 2025-01-08 16:38 | HO.PM.IMPN ---
Subjective Subjective Date of Service: 01/08/25 Interval History: seen and examined this morning patient sleepy this am and requested to keep sleeping; sitter reported she did not sleep all night in the afternoon nurse reported fever - work up pending Review of Systems Review of Systems: Yes all other systems are reviewed and are negative Constitutional Constitutional: Reports fever(s) Physical Exam Vital Signs: Vital Signs: Last Vital Signs Temp 101.4 F H 01/08/25 16:29 Pulse 111 H 01/08/25 16:03 Resp 18 01/08/25 16:03 BP 113/59 L 01/08/25 16:03 Pulse Ox 95 01/08/25 16:03 O2 Del Method Room Air 01/08/25 16:03 O2 Flow Rate 2 01/03/25 15:33 FiO2 25 12/21/24 09:57 Oxygen Flow Rate 2 12/18/24 04:35 BMI result Body Mass Index 16.1 Const: Other: sleepy General: comfortable and no acute distress Nutritional Appearance: thin HEENT: Other: bruising around left eye improving Resp: Effort & Inspection: normal respiratory effort, no respiratory distress and no use of accessory muscles Cardio: Rate: regular rate GI: Inspection: No distended Palpation (GI): Soft to palpation Objective Data Active Medications Acetaminophen (Acetaminophen 325 Mg Tablet) 975 mg PO Q6H PRN PRN Reason: Headache/Pain, Scale 1-10 Last Admin: 01/01/25 21:41 Dose: 975 mg Documented By: CHASITY Carvedilol (Carvedilol 12.5 Mg Tablet) 12.5 mg PO BID [facility]; Protocol Last Admin: 01/08/25 12:36 Dose: 12.5 mg Documented By: VAMSHI Clonidine HCl (Clonidine Hcl 0.1 Mg Tablet) 0.1 mg PO TID [facility]; Protocol Last Admin: 01/05/25 16:15 Dose: Not Given Documented By: JERMAINE Non-Admin Reason: Hold per Collagenase (Collagenase Clostridium Hist. 30 Gm Tube) 1 appl TOPICAL BID [facility]; Protocol Last Admin: 01/08/25 12:47 Dose: 1 appl Documented By: VAMSHI Heparin Sodium (Porcine) (Heparin Sodium,Porcine 5,000 Unit/Ml Vial) 5,000 unit SUBCUT Q12H [facility] Last Admin: 01/08/25 12:36 Dose: 5,000 unit Documented By: VAMSHI Hydralazine HCl (Hydralazine Hcl 50 Mg Tablet) 100 mg PO TID [facility]; Protocol Last Admin: 01/05/25 09:18 Dose: Not Given Documented By: JERMAINE Non-Admin Reason: Decreased Blood Pressure Levetiracetam (Levetiracetam 500 Mg Tablet) 500 mg PO BID [facility] Last Admin: 01/08/25 12:36 Dose: 500 mg Documented By: VAMSHI Melatonin (Melatonin 3 Mg Tablet) 6 mg PO BEDTIME PRN PRN Reason: sleep Methadone HCl (Methadone Hcl 20 Mg/2 Ml Oral.Conc) 50 mg PO DAILY@0800 [facility] Last Admin: 01/08/25 12:37 Dose: 50 mg Documented By: VAMSHI Co-signed By: SULEMA Omeprazole (Omeprazole 20 Mg Capsule.Dr) 20 mg PO DAILY@0630 [facility] Last Admin: 01/08/25 05:30 Dose: 20 mg Documented By: GABO Sevelamer Carbonate (Sevelamer Carbonate Tablet 800 Mg Tablet) 800 mg PO TIDWM [facility] Last Admin: 01/08/25 12:36 Dose: 800 mg Documented By: VAMSHI Sodium Zirconium Cyclosilicate (Sodium Zirconium Cyclosilicate 10 Gm Powd.Pack) 10 gm PO SUTUTHSA [facility] Last Admin: 01/07/25 23:06 Dose: 10 gm Documented By: GABO Labs 01/07/25 05:58 01/07/25 05:59 Assessment and Plan (1) Acute encephalopathy: Status: Acute (2) Fever: Status: Acute Plan This is a 49 year old female with history of ESRD on hemodialysis Thursday/Thursday/Thursday with history of noncompliance, seizure disorder, anemia of chronic kidney disease, polysubstance IV drug use disorder on methadone who was recently admitted for hypertensive urgency and VRE bacteremia d/c with 28 days of linezolid on 12/03 who was brought to the emergency department on December 18 with altered mental status after being found unresponsive with concern for status epilepticus intubated in the emergency room and admitted to the ICU, downgraded to the medical floor on 12/23 SIRS pt with fever, tachycardia will obtain labs, lactic acid, blood cultures, UA, CXR, RPP will hold off on abx for now as no clear source of infection at this time follow clinical course Acute toxic\metabolic encephalopathy Due to in hospital delirium, anoxic injury, medications EEG, No evidence of seizure disorder. Blood cultures neg Frequent reorientation and redirection HCP invoked Hypertensive urgency BP fluctuating, was very high, then very low. Continued on Coreg hydralazine, clonidine on hold Nifedipine stopped BP 140s/150s systolic today; pt feels much better Physical deconditioning PT eval->acute rehab Awaiting Rehab placement Lethargy. Resolved Could be related to Keppra high dose Increase physical activity as tolerated ESRD on hemodialysis-[facility] following Permacath replaced by IR 01/03 Hyperkalemia-Resolved /2 ESRD HD on [facility] Recent C diff infection Hold p.o. vancomycin for now Seizure disorder Keppra Polysubstance use disorder: Addiction Team following Methadone Recent bacteremia with VRE Was on PO linezolid for 28 days, completed. Will monitor and repeat blood cultures as needed. Stopped all antibiotics as blood cultures negative from 12/18 Repeated blood cultures 12/28- Final culture no growth right scapula - unstageable pressure injury sacrum DTI poa wound care as per wound care nurse. see note for full recommendations DVT prophylaxis Mechanical devices, Heparin Full code Disposition, awaiting placement Quality Stroke Does the patient have a stroke diagnosis?: No VTE Prior VTE?: No VTE Risk Level:: Medical - moderate - high VTE Device Contraindication: Treatment Not Indicated VTE Drug Contraindication: N/A - Med Ordered
[2025-01-08 17:28] LABS: MANUAL DIFF FLAG NO
[2025-01-08 17:42] LABS: Basophils Absolute Auto 0.1 X10*3/uL (0.0-0.2); Basophils Percent Auto 0.3 % (0-2); Hematocrit 27.4 % (37.0-47.0); Hemoglobin 9.1 g/dl (12.0-16.0); Imm Gran Abs Auto 0.57 X10*3/uL (0.00-0.03); Imm Gran Pct Auto 2.6 % (0.0-0.4); Lymphocytes Absolute Auto 0.8 X10*3/uL (1.2-4.9); Lymphocytes Percent Auto 3.5 % (20-40); Mean Corpuscular HGB Conc 33.2 g/dl (31.0-35.0); Mean Corpuscular Hemoglobin 31.4 pg (27.0-33.0); Mean Corpuscular Volume 94.5 fL (80.0-98.0); Mean Platelet Volume 10.6 fL (9.4-12.3); Monocytes Absolute Auto 0.8 X10*3/uL (0.1-1.2); Monocytes Percent Auto 3.9 % (2-11); Neutrophils Absolute Auto 19.5 x10*3/uL (2.0-8.3); Neutrophils Percent Auto 89.7 % (45-73); Platelet Count 230 X10*3/uL (160-400); Red Cell Distribution Width 16.8 % (11.0-16.0); White Blood Count 21.8 X10*3/uL (4.8-10.8)
[2025-01-08 17:53] LABS: Anion Gap 33 (12-20); Carbon Dioxide 12 mmol/L (22-29); Chloride 100 mmol/L (96-108); Creatinine Clr Calc Pharmacy 3.7; Estimated Glomerular Filt Rate 4; Glucose Random 89 mg/dL (60-115); Potassium 6.7 mmol/L (3.3-5.1); Sodium 138 mmol/L (135-145)
--- NOTE | 2025-01-08 18:05 | ECG_ITS ---
Test Reason : hyperkalemia Blood Pressure : */* mmHG Vent. Rate : 108 BPM Atrial Rate : 108 BPM P-R Int : 130 ms QRS Dur : 72 ms QT Int : 334 ms P-R-T Axes : 51 -11 36 degrees QTcB Int : 447 ms Sinus tachycardia Otherwise normal ECG When compared with ECG of 30-Dec-2024 07:44, Premature ventricular complexes are no longer Present QRS axis Shifted right Referred By: Ramona Dey Electronically Signed By: Tom Hansen
[2025-01-08] MEDS: Acetaminophen 325 MG TABLET 975 MG PO (18:10)
[2025-01-08 18:23] LABS: Blood Urea Nitrogen 133 mg/dL (9-16)
[2025-01-08] MEDS: Sodium Bicarbonate 8.4% 50 MEQ/50 ML SYRINGE IVPUSH (18:35)
[2025-01-08] MEDS: Dextrose 50 % 25 GM/50 ML SYRINGE IVPUSH (18:35)
[2025-01-08] MEDS: Sodium Zirconium Cyclosilicate 5 GM POWD.PACK 15 GM PO (18:35)
[2025-01-08] MEDS: Insulin Regular, Human 100 UNIT/ML 10 ML VIAL IVPUSH (18:35)
[2025-01-08 18:41] LABS: Glucose, Whole Blood 85 mg/dL (60-115)
[2025-01-08 18:41] LABS: VBG Base Excess -11.5 mmol/L; VBG HCO3 12 mmol/L (22-26); VBG pCO2 24 mmHg; VBG pH 7.32 (7.32-7.43); VBG pO2 180 mmHg
[2025-01-08 18:48] LABS: Venous Blood Gas Refer to POC result
--- NOTE | 2025-01-08 18:51 | PC.NURSE ---
Pt requiring urgent IV placement for critical K results, #22 placed in right wrist, ARACELI Dey aware, no other site available.
--- NOTE | 2025-01-08 19:41 | PC.NURSE ---
Temp 101.4. Increased somnelence. Ramona CHARLES notified. labs, blood cultures, lactic, CXR, UA, Resp panel ordered. K 6.7. BUN and Creatinine critical high. EKG done - sinus tach. Pt placed on telemonitor. IV Regular insulin 5 units, 1 amp IV dextrose, Sodium bicarb IV and lokelma given. BMP to be rechecked in 2 hours at 2030. New IV access to right wrist placed urgently. Pt difficult IV stick. Tylenol given for temp. Order to transfer to [facility].
[2025-01-08 19:48] LABS: Glucose, Whole Blood 110 mg/dL (60-115)
[2025-01-08 20:25] LABS: Creatinine Clr Calc Pharmacy 3.7; Estimated Glomerular Filt Rate 4
--- NOTE | 2025-01-08 20:30 | PM.EVENT ---
Event Note Date of Service: 01/08/25 Event Note: Repeat K 6.9. Contacted on-call retention manager. Patient to undergo hemodialysis tonight Time Spent With Patient Time: Total time managing care of this patient today ____ minutes.
[2025-01-08 20:32] LABS: Anion Gap 34 (12-20); Blood Urea Nitrogen 136 mg/dL (9-16); Calcium 8.1 mg/dL (8.4-10.2); Carbon Dioxide 12 mmol/L (22-29); Chloride 100 mmol/L (96-108); Glucose Random 81 mg/dL (60-115); Potassium 6.9 mmol/L (3.3-5.1); Sodium 139 mmol/L (135-145)
[2025-01-08] MEDS: Acetaminophen 1,000 MG/100 ML PIGGYBACK 400 MG IV (21:34)
--- NOTE | 2025-01-08 22:30 | PC.NURSE ---
Pt repeat potassium 6.9, pt brought to dialysis at this time. Pt noted to have BP 81/51 in dialysis, 500mL bolus given and MD notified.
--- NOTE | 2025-01-08 23:17 | PM.EVENT ---
Event Note Date of Service: 01/08/25 Event Note: Patient with leukocytosis and fever. Initiate team broad-spectrum IV antibiotics, concern for hospital-acquired infection. Blood culture obtained. Time Spent With Patient Time: Total time managing care of this patient today ____ minutes.
[2025-01-09] VITALS (13 sets, daily range): BP systolic 80–111; BP diastolic 54–74; PULSE 88–111; RESP 16–18; TEMP 36.8–40.2; O2SAT 87–94
[2025-01-09 00:09] LABS: Lactic Acid 1.3 mmol/L (0.5-2.0)
[2025-01-09] MEDS: vancomycin HCL 1,000 MG in 0.9 % Sodium Chloride 250 ML 270 MG IV (00:49)
[2025-01-09] MEDS: Piperacillin Sodium/Tazobactam 4.5 GM in 0.9 % Sodium Chloride 100 ML IV ×3 (02:05→23:59)
[2025-01-09] MEDS: levETIRAcetam in NaCl (iso-os) 500 MG/100 ML PIGGYBACK 400 MG IV (02:50)
[2025-01-09] MEDS: Acetaminophen Supp 650 MG SUPP.RECT PR ×3 (03:41→21:09)
[2025-01-09] MEDS: Acetaminophen 1,000 MG/100 ML PIGGYBACK 400 MG IV (04:05)
--- NOTE | 2025-01-09 04:11 | PC.NURSE ---
This RN noted pt with increased lethargy with very warm to touch skin. Rectal temp 104.4, acetaminophen 650mg suppository administered. Pt packed with ice packs and bags of ice. o2 sat noted to be 87% on RA, pt placed on 2L nasal canula o2 sat increased to 96%. BP 99/54, HR 110. MD moran aware of all. Repeat CXR ordered. Additional 1000mg acetaminophen IV ordered, MD Moran aware 3625mg acetaminophen administered over 10 hours.
--- NOTE | 2025-01-09 05:15 | PC.NURSE ---
Pt rectal temp 100.7, pt to dialysis at this time. Pt alert and oriented x3, able to have a conversation with this RN and take PO omeprazole. Pt reports feeling fatigued but overall better.
[2025-01-09] MEDS: Omeprazole 20 MG CAPSULE.DR PO (06:00)
--- NOTE | 2025-01-09 07:00 | CA_ITS ---
Transthoracic Echocardiogram Patient (Last, First, Middle): Simran Bolanos, Gender: Female Date of : 1975 Age: 49 Procedure Date: 01/09/2025 Procedure Type: Transthoracic Echocardiogram Location: [facility] Height: 152.4 cm Weight: 37.2 kg BSA: 1.28 m2 Heart Rate: 93 bpm BP: 94 / 71 mmHg [employer] Crewman: YOKO Referring MD: Twyla Dominguez NP Symptoms: GPC bacteremia Study Quality: Adequate ECG Rhythm: Sinus Conclusions: - Normal left ventricular size and systolic function. There is mildly increased left ventricular wall thickness. The visually estimated ejection fraction is between 55-60%. - No obvious vegetation noted. - Consider a STORMY if clinically appropriate. Findings Left Ventricle Normal left ventricular size and systolic function. There is mildly increased left ventricular wall thickness. The visually estimated ejection fraction is between 55-60%. There is no evidence of regional wall motion abnormalities. Abnormal diastolic function is noted. Spectral Doppler is indicative of an impaired relaxation filling pattern. E/E prime ratio is between 8 and 15 consistent with indeterminate filling pressures. Right Ventricle Normal right ventricular cavity size and systolic function. Atria The left atrium is likely dilated. The right atrium is likely dilated. Aortic Valve Normal aortic valve structure and function. There is no aortic valve stenosis. There is no aortic valve regurgitation. Mitral Valve Normal mitral valve structure and function. The mitral valve appears normal. There is trace mitral valve regurgitation. There is no mitral valve stenosis. Pulmonic Valve The pulmonic valve is normal. There is no pulmonic valve regurgitation. Tricuspid Valve Normal tricuspid valve structure. There is trace tricuspid valve regurgitation. Tricuspid regurgitation envelope is inadequate for calculation of right ventricular systolic pressure. Low right atrial pressure. Venous The inferior vena cava is collapsed, consistent with reduced intravascular volume. Pericardium/Pleural There is no evidence of pericardial effusion. Recommendations, Care & Conclusions Consider a STORMY if clinically appropriate. Measurements 2D Linear Measurements IVSd: 1.07 0.6-0.9/0.6-1.0 cm LVIDd: 4.15 3.9-5.3/4.2-5.9 cm LVIDd Index: 3.24 2.4-3.2/2.2-3.1 cm/m2 LVIDs: 2.84 2.0-3.6 cm LVPWd: 1.10 0.7-1.1 cm LA Diam: 3.60 2.7-3.8/3.0-4.0 cm LAIDs Index: 2.81 1.5-2.3 cm/m2 LV Mass: 188.20 67-162/88-224 g LV Mass Index: 147.03 43-95/49-115 g/m2 LVOT Diam: 2.00 3.0+(-)1.3 cm Mitral Valve MV VTI: 0.26 MV Pk Akshat: 1.02 MV Mn Akshat: 0.59 MV Pk Grad: 4.00 MV Mn Grad: 2.00 MV Pk E: 0.64 MV PK A: 0.94 MV Decel Time: 218.00 E/A: 0.70 E'Lateral: 7.72 E'Medial: 4.68 E/E' Med: 13.60 E/E' Lat: 8.30 PHT: 64.00 MVA PHT: 3.44 MVA Continuity: 2.12 Decel Prentiss: 2.92 LVOT LVOT Pk Akshat: 1.12 LVOT Mn Akshat: 0.75 LVOT VTI: 0.18 LVOT Pk Grad: 5.00 LVOT Mn Grad: 3.00 LVOT Diam: 2.00 LVOT Area: 3.14 Diastolic Function MV Pk E: 0.64 MV Pk A: 0.94 E/A: 0.70 E'Medial: 4.68 E/E' Med: 13.60 E' Laterial: 7.72 E/E' Lat: 8.30 Right Ventricle TAPSE (mm): 22.30 Great Vessels Aorta Sinus of Valsalva: 2.60 2.0-3.5 cm Ao Asc: 2.40 2.1-3.4 cm Pulmonary Valve PV Pk Akshat: 0.87 Peak PV Grad: 3.00 Updated in Other Vendor System with Status of Final Tom Hansen MD electronically signed on 01/09/2025 3:39:05 PM with status of Final
[2025-01-09 07:12] LABS: Hematocrit 26.8 % (37.0-47.0); Hemoglobin 8.8 g/dl (12.0-16.0); Mean Corpuscular HGB Conc 32.8 g/dl (31.0-35.0); Mean Corpuscular Volume 94.4 fL (80.0-98.0); Platelet Count 182 X10*3/uL (160-400); Red Blood Count 2.84 X10*6/uL (4.20-5.50); Red Cell Distribution Width 16.8 % (11.0-16.0); White Blood Count 17.2 X10*3/uL (4.8-10.8)
[2025-01-09 07:56] LABS: Anion Gap 17 (12-20); Blood Urea Nitrogen 22 mg/dL (9-16); Calcium 8.3 mg/dL (8.4-10.2); Carbon Dioxide 31 mmol/L (22-29); Chloride 98 mmol/L (96-108); Creatinine Clr Calc Pharmacy 17.5; Estimated Glomerular Filt Rate 23; Glucose Random 81 mg/dL (60-115); Sodium 143 mmol/L (135-145)
[2025-01-09 07:59] LABS: Potassium 2.9 mmol/L (3.3-5.1)
[2025-01-09 08:03] LABS: Band Neutrophils Percent 11 % (3-5); Lymphocytes Absolute Manual 0.3 X10*3/uL (1.2-4.9); Lymphocytes Percent Manual 2 % (20-40); Neutrophils Absolute Manual 16.9 X10*3/uL (2.0-8.3); Neutrophils Percent Manual 87 % (45-73)
[2025-01-09 08:08] LABS: Toxic Vacuolation PRESENT
[2025-01-09 08:09] LABS: RBC Morphology NOTED; Schistocytes 1+ (0-2) /OIF
[2025-01-09 08:10] LABS: Hypochromasia 1+ (5-14) /OIF; Microcytosis 1+ (5-14) /OIF
[2025-01-09 08:11] LABS: Basophilic Stippling 1+ (0-2) /OIF; Large Platelet PRESENT; Platelet Estimate NORMAL (NORMAL); Platelet Morphology Comment NOTED
--- NOTE | 2025-01-09 08:32 | P.PNNP_ITS ---
Subjective Subjective Date of Service: 01/09/25 Interval history: seen and examined this morning patient sleepy this am and requested to keep sleeping; sitter reported she did not sleep all night in the afternoon nurse reported fever - work up pending Physical Exam 2 Vital Signs: Vital Signs: Last Vital Signs Temp 98.3 F 01/09/25 08:00 Pulse 94 01/09/25 08:00 Resp 18 01/09/25 08:00 BP 94/71 01/09/25 08:00 Pulse Ox 92 01/09/25 08:00 O2 Del Method Room Air 01/09/25 08:00 O2 Flow Rate 2 01/03/25 15:33 FiO2 25 12/21/24 09:57 Oxygen Flow Rate 2 12/18/24 04:35 BMI result Body Mass Index 16.1 Objective Data Labs 01/09/25 06:50 01/09/25 13:41 Labs: Laboratory Results - last 24 hr 01/08/25 01/08/25 01/08/25 17:19 18:32 18:33 WBC 21.8 H RBC 2.90 L Hgb 9.1 L Hct 27.4 L MCV 94.5 MCH 31.4 MCHC 33.2 RDW 16.8 H Plt Count 230 MPV 10.6 Immature Gran % (Auto) 2.6 H Neut % (Auto) 89.7 H Lymph % (Auto) 3.5 L Appling % (Auto) 3.9 Eos % (Auto) 0.0 Baso % (Auto) 0.3 Lymph # (Auto) 0.8 L Appling # (Auto) 0.8 Eos # (Auto) 0.0 Baso # (Auto) 0.1 Abs Immat Gran (auto) 0.57 H Absolute Neuts (auto) 19.5 H Absolute Nucleated RBC 0.000 Nucleated RBC % (auto) 0.0 Neutrophils % (Manual) Band Neutrophils % Lymphocytes % (Manual) Abs Neuts (Manual) Lymphocytes # (Manual) Toxic Vacuolation Platelet Estimate Large Platelets Plt Morphology Comment RBC Morphology Hypochromasia Basophilic Stippling Microcytosis Schistocytes VBG pH VBG pCO2 VBG pO2 VBG HCO3 VBG O2 Saturation VBG Base Excess Sodium 138 139 Potassium 6.7 H* D 6.9 H* Chloride 100 100 Carbon Dioxide 12 L 12 L Anion Gap 33 H 34 H BUN 133 H 136 H Creatinine 10.86 H* 10.73 H* Estim Creat Clear Calc 3.7 3.7 Estimated GFR 4 4 POC Glucose 85 Random Glucose 89 81 Lactic Acid 1.0 Calcium 8.0 L D 8.1 L 01/08/25 01/08/25 01/08/25 18:38 19:44 23:38 WBC RBC Hgb Hct MCV MCH MCHC RDW Plt Count MPV Immature Gran % (Auto) Neut % (Auto) Lymph % (Auto) Appling % (Auto) Eos % (Auto) Baso % (Auto) Lymph # (Auto) Appling # (Auto) Eos # (Auto) Baso # (Auto) Abs Immat Gran (auto) Absolute Neuts (auto) Absolute Nucleated RBC Nucleated RBC % (auto) Neutrophils % (Manual) Band Neutrophils % Lymphocytes % (Manual) Abs Neuts (Manual) Lymphocytes # (Manual) Toxic Vacuolation Platelet Estimate Large Platelets Plt Morphology Comment RBC Morphology Hypochromasia Basophilic Stippling Microcytosis Schistocytes VBG pH 7.32 VBG pCO2 24 VBG pO2 180 VBG HCO3 12 L VBG O2 Saturation 99.0 VBG Base Excess -11.5 Sodium Potassium Chloride Carbon Dioxide Anion Gap BUN Creatinine Estim Creat Clear Calc Estimated GFR POC Glucose 110 Random Glucose Lactic Acid 1.3 Calcium 01/09/25 06:50 WBC 17.2 H RBC 2.84 L Hgb 8.8 L Hct 26.8 L MCV 94.4 MCH 31.0 MCHC 32.8 RDW 16.8 H Plt Count 182 MPV 11.0 Immature Gran % (Auto) Cancelled Neut % (Auto) Cancelled Lymph % (Auto) Cancelled Appling % (Auto) Cancelled Eos % (Auto) Cancelled Baso % (Auto) Cancelled Lymph # (Auto) Cancelled Appling # (Auto) Cancelled Eos # (Auto) Cancelled Baso # (Auto) Cancelled Abs Immat Gran (auto) Cancelled Absolute Neuts (auto) Cancelled Absolute Nucleated RBC 0.000 Nucleated RBC % (auto) 0.0 Neutrophils % (Manual) 87 H Band Neutrophils % 11 H Lymphocytes % (Manual) 2 L Abs Neuts (Manual) 16.9 H Lymphocytes # (Manual) 0.3 L Toxic Vacuolation PRESENT Platelet Estimate NORMAL Large Platelets PRESENT Plt Morphology Comment NOTED RBC Morphology NOTED Hypochromasia 1+ (5-14) Basophilic Stippling 1+ (0-2) Microcytosis 1+ (5-14) Schistocytes 1+ (0-2) VBG pH VBG pCO2 VBG pO2 VBG HCO3 VBG O2 Saturation VBG Base Excess Sodium 143 Potassium 2.9 L* D Chloride 98 Carbon Dioxide 31 H Anion Gap 17 BUN 22 H Creatinine 2.29 H Estim Creat Clear Calc 17.5 Estimated GFR 23 POC Glucose Random Glucose 81 Lactic Acid Calcium 8.3 L Microbiology Microbiology Results: Microbiology 01/08/25 17:20 Blood - Venous Blood Culture - Preliminary Prelim: GPC Gram Stain only 01/08/25 17:19 Blood - Venous Blood Culture - Preliminary Prelim: GPC Gram Stain only 12/28/24 12:24 Blood - Venous Blood Culture - Final No growth after 5 days. 12/28/24 11:13 Blood - Venous Blood Culture - Final No growth after 5 days. 12/18/24 08:11 Blood - Venous Blood Culture - Final No growth after 5 days. 12/18/24 08:11 Blood - Venous Blood Culture - Final No growth after 5 days. Procedures Date of Service Date of Service: 01/09/25 Assessment & Plan Assessment and plan (1) ESRD (end stage renal disease): Status: Acute Plan 1. ESRD: [facility]u [facility] 2. AMS: improving; multifact and w/u as per primary team 3. H/O Severe HTN: BP now running on low side was on clonidine tid, nifedepine 60 bid, coreg 12.5 bid, hydralazine 100mg tid 4. Renal anemia 5. Hemoaccess: s/p new Pcath and worked well REC: hold BP meds and track BP, cont HD mwf; card echo if BP remains low will fu cultures for new fever - discussed and will follow w team Time Spent With Patient Time: Total time managing care of this patient today ____ minutes. Progress Note: Quality Stroke Does the patient have a stroke diagnosis?: No
--- NOTE | 2025-01-09 09:51 | HO.PM.IMPN ---
Subjective Subjective Date of Service: 01/09/25 Interval History: seen and examined this morning alert and confused Review of Systems Review of Systems: Yes all other systems are reviewed and are negative Constitutional Constitutional: Reports fever(s) Physical Exam Vital Signs: Vital Signs: Last Vital Signs Temp 98.3 F 01/09/25 08:00 Pulse 94 01/09/25 08:00 Resp 18 01/09/25 08:00 BP 94/71 01/09/25 08:00 Pulse Ox 92 01/09/25 08:00 O2 Del Method Room Air 01/09/25 08:00 O2 Flow Rate 2 01/03/25 15:33 FiO2 25 12/21/24 09:57 Oxygen Flow Rate 2 12/18/24 04:35 BMI result Body Mass Index 16.1 Objective Data Active Medications Acetaminophen (Acetaminophen 325 Mg Tablet) 975 mg PO Q6H PRN PRN Reason: Headache/Pain, Scale 1-10 Last Admin: 01/08/25 18:10 Dose: 975 mg Documented By: VAMSHI Acetaminophen (Acetaminophen Supp 650 Mg Supp.Rect) 650 mg [place] Q4H PRN PRN Reason: Pain, Mild 1-3,fever,headache Last Admin: 01/09/25 03:41 Dose: 650 mg Documented By: GONSALO Carvedilol (Carvedilol 12.5 Mg Tablet) 12.5 mg PO BID [facility]; Protocol Last Admin: 01/09/25 00:11 Dose: Not Given Documented By: GONSALO Non-Admin Reason: Decreased Blood Pressure Collagenase (Collagenase Clostridium Hist. 30 Gm Tube) 1 appl TOPICAL BID [facility]; Protocol Last Admin: 01/09/25 02:14 Dose: Not Given Documented By: GONSALO Non-Admin Reason: Off unit: Dialysis Heparin Sodium (Porcine) (Heparin Sodium,Porcine 5,000 Unit/Ml Vial) 5,000 unit SUBCUT Q12H [facility] Last Admin: 01/09/25 00:11 Dose: Not Given Documented By: GONSALO Non-Admin Reason: Patient Refused Piperacillin Sod/Tazobactam (Sod 4.5 gm/ Sodium Chloride) 100 mls @ 200 mls/hr IV Q12H [facility] Last Infusion: 01/09/25 02:49 Dose: Infused Documented By: GONSALO Vancomycin HCl 1,000 mg/ (Sodium Chloride) 270 mls @ 270 mls/hr IV ONCE ONE Stop: 01/09/25 08:27 Levetiracetam (Levetiracetam 500 Mg Tablet) 500 mg PO BID [facility] Last Admin: 01/09/25 00:12 Dose: Not Given Documented By: GONSALO Non-Admin Reason: Pt too drowsy to take PO med, MD aware Melatonin (Melatonin 3 Mg Tablet) 6 mg PO BEDTIME PRN PRN Reason: sleep Methadone HCl (Methadone Hcl 20 Mg/2 Ml Oral.Conc) 50 mg PO DAILY@0800 [facility] Last Admin: 01/08/25 12:37 Dose: 50 mg Documented By: VAMSHI Co-signed By: SULEMA Omeprazole (Omeprazole 20 Mg Capsule.) 20 mg PO DAILY@06 [facility] Last Admin: 01/09/25 06:00 Dose: 20 mg Documented By: GONSALO Pharmacy Consult (Consult Rx Vancomycin Dosing) 1 each MISCELLANE DAILY PRN PRN Reason: Consult order Sevelamer Carbonate (Sevelamer Carbonate Tablet 800 Mg Tablet) 800 mg PO TIDWM [facility] Last Admin: 01/08/25 18:28 Dose: Not Given Documented By: VAMSHI Non-Admin Reason: not eating dinner Sodium Zirconium Cyclosilicate (Sodium Zirconium Cyclosilicate 10 Gm Powd.Pack) 10 gm PO DAILY [facility] Labs 01/09/25 06:50 01/09/25 06:50 Labs: Laboratory Results - last 24 hr 01/08/25 01/08/25 01/08/25 17:19 18:32 18:33 MCV 94.5 MCH 31.4 MCHC 33.2 RDW 16.8 H Plt Count 230 MPV 10.6 Immature Gran % (Auto) 2.6 H Neut % (Auto) 89.7 H Lymph % (Auto) 3.5 L [place] % (Auto) 3.9 Eos % (Auto) 0.0 Baso % (Auto) 0.3 Lymph # (Auto) 0.8 L [place] # (Auto) 0.8 Eos # (Auto) 0.0 Baso # (Auto) 0.1 Abs Immat Gran (auto) 0.57 H Absolute Neuts (auto) 19.5 H Absolute Nucleated RBC 0.000 Nucleated RBC % (auto) 0.0 Neutrophils % (Manual) Band Neutrophils % Lymphocytes % (Manual) Abs Neuts (Manual) Lymphocytes # (Manual) Toxic Vacuolation Platelet Estimate Large Platelets Plt Morphology Comment RBC Morphology Hypochromasia Basophilic Stippling Microcytosis Schistocytes VBG pH VBG pCO2 VBG pO2 VBG HCO3 VBG O2 Saturation VBG Base Excess Anion Gap 33 H 34 H Estim Creat Clear Calc 3.7 3.7 Estimated GFR 4 4 POC Glucose 85 Random Glucose 89 81 Lactic Acid 1.0 Calcium 8.0 L D 8.1 L 01/08/25 01/08/25 01/08/25 18:38 19:44 23:38 MCV MCH MCHC RDW Plt Count MPV Immature Gran % (Auto) Neut % (Auto) Lymph % (Auto) [place] % (Auto) Eos % (Auto) Baso % (Auto) Lymph # (Auto) [place] # (Auto) Eos # (Auto) Baso # (Auto) Abs Immat Gran (auto) Absolute Neuts (auto) Absolute Nucleated RBC Nucleated RBC % (auto) Neutrophils % (Manual) Band Neutrophils % Lymphocytes % (Manual) Abs Neuts (Manual) Lymphocytes # (Manual) Toxic Vacuolation Platelet Estimate Large Platelets Plt Morphology Comment RBC Morphology Hypochromasia Basophilic Stippling Microcytosis Schistocytes VBG pH 7.32 VBG pCO2 24 VBG pO2 180 VBG HCO3 12 L VBG O2 Saturation 99.0 VBG Base Excess -11.5 Anion Gap Estim Creat Clear Calc Estimated GFR POC Glucose 110 Random Glucose Lactic Acid 1.3 Calcium 01/09/25 06:50 MCV 94.4 MCH 31.0 MCHC 32.8 RDW 16.8 H Plt Count 182 MPV 11.0 Immature Gran % (Auto) Cancelled Neut % (Auto) Cancelled Lymph % (Auto) Cancelled [place] % (Auto) Cancelled Eos % (Auto) Cancelled Baso % (Auto) Cancelled Lymph # (Auto) Cancelled [place] # (Auto) Cancelled Eos # (Auto) Cancelled Baso # (Auto) Cancelled Abs Immat Gran (auto) Cancelled Absolute Neuts (auto) Cancelled Absolute Nucleated RBC 0.000 Nucleated RBC % (auto) 0.0 Neutrophils % (Manual) 87 H Band Neutrophils % 11 H Lymphocytes % (Manual) 2 L Abs Neuts (Manual) 16.9 H Lymphocytes # (Manual) 0.3 L Toxic Vacuolation PRESENT Platelet Estimate NORMAL Large Platelets PRESENT Plt Morphology Comment NOTED RBC Morphology NOTED Hypochromasia 1+ (5-14) Basophilic Stippling 1+ (0-2) Microcytosis 1+ (5-14) Schistocytes 1+ (0-2) VBG pH VBG pCO2 VBG pO2 VBG HCO3 VBG O2 Saturation VBG Base Excess Anion Gap 17 Estim Creat Clear Calc 17.5 Estimated GFR 23 POC Glucose Random Glucose 81 Lactic Acid Calcium 8.3 L Microbiology Microbiology Results: Microbiology 01/08/25 17:20 Blood Culture - Preliminary Blood - Venous Prelim: GPC Gram Stain only 01/08/25 17:19 Blood Culture - Preliminary Blood - Venous Prelim: GPC Gram Stain only Assessment and Plan (1) Acute encephalopathy: Status: Acute (2) Fever: Status: Acute Plan 49 year old female with history of ESRD on hemodialysis Thursday/Thursday/Thursday with history of noncompliance, seizure disorder, anemia of chronic kidney disease, polysubstance IV drug use disorder on methadone who was recently admitted for hypertensive urgency and VRE bacteremia d/c with 28 days of linezolid on 12/03 who was brought to the emergency department on December 18 with altered mental status after being found unresponsive with concern for status epilepticus intubated in the emergency room and admitted to the ICU, downgraded to the medical floor on 12/23 GPC bacteremia and SIRS developed fever, tachycardia overnight, wbc 21.8, 17.2 blood cx 2/2 positive CXR neg for PNA ua and stool study pending ? line infection, recently changed 01/03 echo ordered Acute toxic\metabolic encephalopathy Due to in hospital delirium, anoxic injury, medications EEG, No evidence of seizure disorder. Frequent reorientation and redirection HCP invoked Hypertensive urgency BP fluctuating, was very high, then very low. Continued on Coreg hydralazine, clonidine on hold Nifedipine stopped Physical deconditioning Awaiting Rehab placement Lethargy. Resolved Could be related to Keppra high dose Increase physical activity as tolerated ESRD on hemodialysis-[facility] following Permacath replaced by IR 01/03 Hyperkalemia ESRD HD on [facility] Recent C diff infection Hold p.o. vancomycin for now Seizure disorder [facility] Polysubstance use disorder Addiction Team following Methadone Recent bacteremia with VRE Was on PO linezolid for 28 days, completed. Will monitor and repeat blood cultures as needed. Stopped all antibiotics as blood cultures negative from 12/18 Repeated blood cultures 12/28- Final culture no growth right scapula - unstageable pressure injury sacrum DTI poa wound care as per wound care nurse. see note for full recommendations DVT prophylaxis Mechanical devices, Heparin Full code Disposition, awaiting placement Quality Stroke Does the patient have a stroke diagnosis?: No VTE Prior VTE?: No VTE Risk Level:: Medical - moderate - high VTE Device Contraindication: Treatment Not Indicated VTE Drug Contraindication: N/A - Med Ordered
[2025-01-09 10:51] LABS: Adenovirus PCR Not Detected (Not Detect.); Bordetella parapertussis PCR Not Detected (Not Detect.); Bordetella pertussis PCR Not Detected (Not Detect.); Chlamydia pneumoniae PCR Not Detected (Not Detect.); Coronavirus 229E PCR Not Detected (Not Detect.); Coronavirus HKU1 PCR Not Detected (Not Detect.); Coronavirus NL63 PCR Not Detected (Not Detect.); Coronavirus OC43 PCR Not Detected (Not Detect.); Human metapneumovirus PCR Not Detected (Not Detect.); Influenza A PCR Not Detected (Not Detect.); Influenza B PCR Not Detected (Not Detect.); Mycoplasma pneumoniae PCR Not Detected (Not Detect.); Parainfluenza 1 PCR Not Detected (Not Detect.); Parainfluenza 2 PCR Not Detected (Not Detect.); Parainfluenza 3 PCR Not Detected (Not Detect.); Parainfluenza 4 PCR Not Detected (Not Detect.); RSV PCR Not Detected (Not Detect.); Rhino/Enterovirus PCR Not Detected (Not Detect.); SARS-CoV-2 PCR Not Detected (Not Detect.)
[2025-01-09] MEDS: Sevelamer Carbonate Tablet 800 MG TABLET PO ×2 (11:02→16:40)
[2025-01-09] MEDS: levETIRAcetam 500 MG TABLET PO ×2 (11:02→21:09)
[2025-01-09] MEDS: Potassium Chloride ER 20 MEQ TAB.ER.PRT PO (11:02)
[2025-01-09] MEDS: Heparin Sodium,Porcine 5,000 UNIT/ML VIAL 5000 UNIT SUBCUT ×2 (11:03→21:08)
[2025-01-09] MEDS: methADONE HCl 20 MG/2 ML ORAL.CONC 50 MG PO (11:04)
[2025-01-09] MEDS: Collagenase Clostridium Hist. 30 GM TUBE 1 APPL TOPICAL ×2 (11:12→21:28)
[2025-01-09 11:51] LABS: Influenza A H1 PCR Not Detected (Not Detect.); Influenza A H1-2009 PCR Not Detected (Not Detect.); Influenza A H3 PCR Not Detected (Not Detect.)
--- NOTE | 2025-01-09 12:27 | MHC.CM.PN ---
EMR reviewed and per MD rounds, pt is not medically cleared for discharge due to management of bacteremia and SIRS.
--- NOTE | 2025-01-09 13:35 | MHC.CLN ---
F/U PO INTAKE VARIABLE, WITH MOST MEALS 100% X5 MEALS, THEN 0% X2 MEALS DIET RX: 2GM NA, LOW POTASSIUM, LOW PHOS RECEIVING ENSURE CLEAR TID TO PROMOTE WOUND HEALING SUPP PROVIDES 720KCALS, 24G PROTEIN (SUPP IS RENAL FRIENDLY-NO K+) CONTINUE TO MONITOR PO INTAKE, WEIGHT AND WOUND HEALING OBTAIN RE-WEIGHT R/T FLUCTUATIONS
--- NOTE | 2025-01-09 13:45 | P.CDIM_ITS ---
PROVIDER RESPONSE TEXT: To clarify, the appropriate diagnosis supported by the clinical indicators: Seizure Disorder was present on admission and is still being monitored, evaluated, or treated QUERY TEXT: PHYSICIAN'S DOCUMENTATION REQUEST Date of Query: 01/04/2025 10:25 AM EDT Patient Name: Simran Bolanos Admit Date: 12/18/2024 Dear Twyla Dominguez STERILE PROCESS TECH, A review of the medical record indicates additional documentation may be needed. Please review below and update the documentation accordingly. Clinical Indicators: EEG 12/26/24: Generalized slowing with frequent movement artifacts limiting interpretation of EEG. No e vidence of seizure disorder. Neurology Consultation 12/27/24: Continue Keppra 750mg bid Per Hospitalist Progress note 01/04/25: EEG, No evidence of seizure disorder. Seizure disorder Keppra Please clarify the following: Seizure Disorder was present on admission and is still being monitored, evaluated, or treated Seizure Disorder was ruled out is still a likely, suspected, probable diagnosis Other (explain) Clinically unable to determine (explain) Thank you, Mary Garcia RN Use of terms such as suspected, likely, concern for, or probable (associated with a specific diagnosi s that is being evaluated, monitored, or treated as if it exists) are acceptable and can be coded in the inpatient se tting, when documented at the time of discharge. Please use your independent medical judgment in providing your response. THIS QUERY IS PART OF THE PERMANENT MEDICAL RECORD
[2025-01-09 14:33] LABS: Creatinine Clr Calc Pharmacy 17.7; Estimated Glomerular Filt Rate 23
[2025-01-09 14:42] LABS: Vancomycin Random 15.8 mcg/mL (15-20)
[2025-01-09 18:44] LABS: CDiff Gene PCR NEGATIVE (Negative)
[2025-01-09] MEDS: Lactated Ringers 500 ML 50 ML IV (23:03)
[2025-01-10 00:05] LABS: Lactic Acid 1.8 mmol/L (0.5-2.0)
[2025-01-10 00:25] VITALS: BP 82/50; PULSE 85; RESP 20; TEMP 37.7; O2SAT 96
[2025-01-10] MEDS: Albumin Human 25 % 50 ML 100 ML IV (01:35)
[2025-01-10 02:29] VITALS: BP 92/58; PULSE 91; RESP 20; TEMP 37.6; O2SAT 96
[2025-01-10 04:00] VITALS: BP 94/55; PULSE 88; RESP 17; TEMP 37.6; O2SAT 94
[2025-01-10] MEDS: Omeprazole 20 MG CAPSULE.DR PO (05:34)
[2025-01-10] MEDS: Acetaminophen 325 MG TABLET 975 MG PO (05:43)
[2025-01-10 07:24] VITALS: BP 103/56; PULSE 90; RESP 20; TEMP 37.7; O2SAT 95
[2025-01-10] MEDS: Sevelamer Carbonate Tablet 800 MG TABLET PO ×3 (08:53→16:59)
[2025-01-10] MEDS: levETIRAcetam 500 MG TABLET PO ×2 (08:53→21:44)
[2025-01-10] MEDS: methADONE HCl 20 MG/2 ML ORAL.CONC 50 MG PO (08:54)
[2025-01-10] MEDS: Heparin Sodium,Porcine 5,000 UNIT/ML VIAL 5000 UNIT SUBCUT ×2 (08:55→21:43)
[2025-01-10 10:59] LABS: Anion Gap 18 (12-20); Blood Urea Nitrogen 38 mg/dL (9-16); Calcium 8.6 mg/dL (8.4-10.2); Carbon Dioxide 31 mmol/L (22-29); Chloride 101 mmol/L (96-108); Creatinine Clr Calc Pharmacy 8.8; Estimated Glomerular Filt Rate 10; Glucose Random 99 mg/dL (60-115); Potassium 3.4 mmol/L (3.3-5.1); Sodium 147 mmol/L (135-145)
[2025-01-10] MEDS: Sodium Zirconium Cyclosilicate 10 GM POWD.PACK PO (11:23)
[2025-01-10] MEDS: Piperacillin Sodium/Tazobactam 4.5 GM in 0.9 % Sodium Chloride 100 ML IV (11:23)
[2025-01-10] MEDS: Collagenase Clostridium Hist. 30 GM TUBE 1 APPL TOPICAL (11:25)
--- NOTE | 2025-01-10 11:49 | P.PNIM_ITS ---
Subjective Subjective Date of Service: 01/10/25 Interval History: seen and examined this morning alert and confused Review of Systems Review of Systems: Yes all other systems are reviewed and are negative Constitutional Constitutional: Reports fever(s) Physical Exam 2 Vital Signs: Vital Signs: Last Vital Signs Temp 99.8 F 01/10/25 07:24 Pulse 90 01/10/25 07:24 Resp 20 01/10/25 07:24 BP 103/56 L 01/10/25 07:24 Pulse Ox 95 01/10/25 07:24 O2 Del Method Room Air 01/10/25 07:24 O2 Flow Rate 2 01/10/25 02:29 FiO2 25 12/21/24 09:57 Oxygen Flow Rate 2 12/18/24 04:35 BMI result Body Mass Index 16.1 Objective Data Active Medications Acetaminophen (Acetaminophen 325 Mg Tablet) 975 mg PO Q6H PRN PRN Reason: Headache/Pain, Scale 1-10 Last Admin: 01/10/25 05:43 Dose: 975 mg Documented By: HARJINDER Acetaminophen (Acetaminophen Supp 650 Mg Supp.Rect) 650 mg [place] Q4H PRN PRN Reason: Pain, Mild 1-3,fever,headache Last Admin: 01/09/25 21:09 Dose: 650 mg Documented By: HARJINDER Carvedilol (Carvedilol 12.5 Mg Tablet) 12.5 mg PO BID [facility]; Protocol Last Admin: 01/09/25 23:01 Dose: Not Given Documented By: HARJINDER Non-Admin Reason: Physician Held Med Collagenase (Collagenase Clostridium Hist. 30 Gm Tube) 1 appl TOPICAL BID [facility]; Protocol Last Admin: 01/10/25 11:25 Dose: 1 appl Documented By: RON Heparin Sodium (Porcine) (Heparin Sodium,Porcine 5,000 Unit/Ml Vial) 5,000 unit SUBCUT Q12H [facility] Last Admin: 01/10/25 08:55 Dose: 5,000 unit Documented By: RON Piperacillin Sod/Tazobactam (Sod 4.5 gm/ Sodium Chloride) 100 mls @ 200 mls/hr IV Q12H [facility] Last Admin: 01/10/25 11:23 Dose: 200 mls/hr Documented By: RON Vancomycin HCl 1,000 mg/ (Sodium Chloride) 270 mls @ 270 mls/hr IV ONCE ONE Stop: 01/09/25 08:27 Levetiracetam (Levetiracetam 500 Mg Tablet) 500 mg PO BID [facility] Last Admin: 01/10/25 08:53 Dose: 500 mg Documented By: RON Melatonin (Melatonin 3 Mg Tablet) 6 mg PO BEDTIME PRN PRN Reason: sleep Methadone HCl (Methadone Hcl 20 Mg/2 Ml Oral.Conc) 50 mg PO DAILY@0800 [facility] Last Admin: 01/10/25 08:54 Dose: 50 mg Documented By: RON Co-signed By: RIA Omeprazole (Omeprazole 20 Mg Capsule.Dr) 20 mg PO DAILY@0630 [facility] Last Admin: 01/10/25 05:34 Dose: 20 mg Documented By: HARJINDER Pharmacy Consult (Consult Rx Vancomycin Dosing) 1 each MISCELLANE DAILY PRN PRN Reason: Consult order Sevelamer Carbonate (Sevelamer Carbonate Tablet 800 Mg Tablet) 800 mg PO TIDWM [facility] Last Admin: 01/10/25 11:23 Dose: 800 mg Documented By: RON Sodium Zirconium Cyclosilicate (Sodium Zirconium Cyclosilicate 10 Gm Powd.Pack) 10 gm PO DAILY [facility] Last Admin: 01/10/25 11:23 Dose: 10 gm Documented By: RON Labs 01/09/25 06:50 01/10/25 10:21 Labs: Laboratory Results - last 24 hr 01/08/25 01/08/25 01/09/25 17:19 17:55 13:41 MCV 94.5 MCH 31.4 MCHC 33.2 RDW 16.8 H Plt Count 230 MPV 10.6 Immature Gran % (Auto) 2.6 H Neut % (Auto) 89.7 H Lymph % (Auto) 3.5 L [place] % (Auto) 3.9 Eos % (Auto) 0.0 Baso % (Auto) 0.3 Lymph # (Auto) 0.8 L [place] # (Auto) 0.8 Eos # (Auto) 0.0 Baso # (Auto) 0.1 Abs Immat Gran (auto) 0.57 H Absolute Neuts (auto) 19.5 H Absolute Nucleated RBC 0.000 Nucleated RBC % (auto) 0.0 Anion Gap 33 H Estim Creat Clear Calc 3.7 17.7 Estimated GFR 4 23 Random Glucose 89 Lactic Acid 1.0 Calcium 8.0 L D Random Vancomycin 15.8 Respiratory Panel [place] See Note Adenovirus (Rapid PCR) Not Detected B.pert (TEM-PCR) Not Detected B.parapertussis DNA PCR Not Detected C. pneumoniae DNA (PCR) Not Detected C. difficile Tox B Gene Coronavirus OC43 (PCR) Not Detected Coronavirus HKU1 (PCR) Not Detected Coronavirus 229E (PCR) Not Detected Coronavirus NL63 (PCR) Not Detected Human Metapneumovir PCR Not Detected Influenza A (RT-PCR) Not Detected Influenza A (H1) PCR Not Detected Influ A (H1/) PCR Not Detected Influenza A (H3) PCR Not Detected Influenza B (RT-PCR) Not Detected M. pneumoniae (PCR) Not Detected Parainfluenza 1 (PCR) Not Detected Parainfluenza 2 (PCR) Not Detected Parainfluenza 3 (PCR) Not Detected Parainfluenza 4 (PCR) Not Detected RSV (PCR) Not Detected Entero/Rhino (PCR) Not Detected SARS-CoV-2 RNA (RT-PCR) Not Detected 01/09/25 01/09/25 01/10/25 16:30 23:38 10:21 MCV MCH MCHC RDW Plt Count MPV Immature Gran % (Auto) Neut % (Auto) Lymph % (Auto) [place] % (Auto) Eos % (Auto) Baso % (Auto) Lymph # (Auto) [place] # (Auto) Eos # (Auto) Baso # (Auto) Abs Immat Gran (auto) Absolute Neuts (auto) Absolute Nucleated RBC Nucleated RBC % (auto) Anion Gap 18 Estim Creat Clear Calc 8.8 Estimated GFR 10 Random Glucose 99 Lactic Acid 1.8 Calcium 8.6 Random Vancomycin Respiratory Panel [place] Adenovirus (Rapid PCR) B.pert (TEM-PCR) B.parapertussis DNA PCR C. pneumoniae DNA (PCR) C. difficile Tox B Gene NEGATIVE Coronavirus OC43 (PCR) Coronavirus HKU1 (PCR) Coronavirus 229E (PCR) Coronavirus NL63 (PCR) Human Metapneumovir PCR Influenza A (RT-PCR) Influenza A (H1) PCR Influ A (H1/) PCR Influenza A (H3) PCR Influenza B (RT-PCR) M. pneumoniae (PCR) Parainfluenza 1 (PCR) Parainfluenza 2 (PCR) Parainfluenza 3 (PCR) Parainfluenza 4 (PCR) RSV (PCR) Entero/Rhino (PCR) SARS-CoV-2 RNA (RT-PCR) Microbiology Microbiology Results: Microbiology 01/08/25 17:20 Blood Culture - Preliminary Blood - Venous Staphylococcus aureus 01/08/25 17:19 Blood Culture - Preliminary Blood - Venous Staphylococcus aureus Assessment and Plan (1) Acute encephalopathy: Status: Acute (2) Fever: Status: Acute Plan 49 year old female with history of ESRD on hemodialysis Thursday/Thursday/Thursday with history of noncompliance, seizure disorder, anemia of chronic kidney disease, polysubstance IV drug use disorder on methadone who was recently admitted for hypertensive urgency and VRE bacteremia d/c with 28 days of linezolid on 12/03 who was brought to the emergency department on December 18 with altered mental status after being found unresponsive with concern for status epilepticus intubated in the emergency room and admitted to the ICU, downgraded to the medical floor on 12/23 Staph aureus bacteremia and SIRS MRSA negative, Staph aureus positive CXR neg for PNA cdiff neg ? line infection, recently changed 01/03 echo ordered with no obvious vegetation Switch to cefazolin Acute toxic\metabolic encephalopathy Due to in hospital delirium, anoxic injury, medications EEG, No evidence of seizure disorder. Frequent reorientation and redirection HCP invoked Hypertensive urgency BP fluctuating, was very high, then very low. Continued on Coreg hydralazine, clonidine on hold Nifedipine stopped Physical deconditioning Awaiting Rehab placement Lethargy. Resolved Could be related to Keppra high dose Increase physical activity as tolerated ESRD on hemodialysis-[facility] following Permacath replaced by IR 01/03 Hyperkalemia ESRD HD on [facility] Recent C diff infection Hold p.o. vancomycin for now Seizure disorder [place] Polysubstance use disorder Addiction Team following Methadone Recent bacteremia with VRE Was on PO linezolid for 28 days, completed. Will monitor and repeat blood cultures as needed. Stopped all antibiotics as blood cultures negative from 12/18 Repeated blood cultures 12/28- Final culture no growth right scapula - unstageable pressure injury sacrum DTI poa wound care as per wound care nurse. see note for full recommendations DVT prophylaxis Mechanical devices, Heparin Full code Disposition, awaiting placement Quality Stroke Does the patient have a stroke diagnosis?: No VTE Prior VTE?: No VTE Risk Level:: Medical - moderate - high VTE Device Contraindication: Treatment Not Indicated VTE Drug Contraindication: N/A - Med Ordered
--- NOTE | 2025-01-10 14:25 | P.CNID_ITS ---
History of Present Illness Data of Consult Service Date: 01/09/25 Requesting physician: Twyla Dominguez Primary Care Provider: None Physician HPI Reason for consult: MSSA sepsis She presents with acute mental status changes acutely She has fallen and has left facial bruising. She has negative CT head and no neck pain. Blood cultures MSSA. Review of Systems 2 Review of Systems: Yes all other systems are reviewed and are negative PMFSH Past Medical History Medical History Opioid use disorder ESRD (end stage renal disease) Clostridioides difficile diarrhea Traumatic hematoma of left upper arm Seizure Hypertension, uncontrolled Anemia due to chronic kidney disease ESRD (end stage renal disease) on dialysis Medical non-compliance Norovirus Anemia HTN (hypertension) Drug abuse Family History Family history: reviewed and not pertinent Social History Social History Household Members: Unknown / Unable to assess Household Members Other:: rommmate Housing: Apartment Unable to assess alcohol history related to: Unknown Alcohol intake: unknown Comment: 1:1 Patient Tobacco Use Status: Former Tobacco user Frequency of e-Cigarette/Vaping Use: unknown Use of substances other than those prescribed or required for medical reasons: Unable to respond Substance Use Type: Heroin Currently Displaying Signs/Symptoms of Drug Intoxication Withdrawal: No Spiritual Healthcare Practices: unknown, unable to assess Advance Directives: Yes Advance Directives Information Provided: No Advance Directives on File: Yes Advance Directives Date on File: 09/25/24 Do you have a plan to hurt others: Vague Recently lost weight without trying: Unsure Eating poorly because of decreased appetite: Yes Nutrition Risks: Anorexia Poor oral hygiene: Yes service: No Meds Allergies Allergy/AdvReac Type Severity Reaction Status Date / Time No Known Allergies Allergy Verified 12/18/24 04:49 Active Medications: Current Medications Acetaminophen (Acetaminophen 325 Mg Tablet) 975 mg PO Q6H PRN PRN Reason: Headache/Pain, Scale 1-10 Last Admin: 01/10/25 05:43 Dose: 975 mg Acetaminophen (Acetaminophen Supp 650 Mg Supp.Rect) 650 mg [place] Q4H PRN PRN Reason: Pain, Mild 1-3,fever,headache Last Admin: 01/09/25 21:09 Dose: 650 mg Carvedilol (Carvedilol 12.5 Mg Tablet) 12.5 mg PO BID [facility]; Protocol Last Admin: 01/09/25 23:01 Dose: Not Given Cefazolin Sodium (Cefazolin Sodium 1 Gm Vial) 1 gm IVPUSH Q24H [facility] Collagenase (Collagenase Clostridium Hist. 30 Gm Tube) 1 appl TOPICAL BID [facility]; Protocol Last Admin: 01/10/25 11:25 Dose: 1 appl Heparin Sodium (Porcine) (Heparin Sodium,Porcine 5,000 Unit/Ml Vial) 5,000 unit SUBCUT Q12H [facility] Last Admin: 01/10/25 08:55 Dose: 5,000 unit Levetiracetam (Levetiracetam 500 Mg Tablet) 500 mg PO BID [facility] Last Admin: 01/10/25 08:53 Dose: 500 mg Melatonin (Melatonin 3 Mg Tablet) 6 mg PO BEDTIME PRN PRN Reason: sleep Methadone HCl (Methadone Hcl 20 Mg/2 Ml Oral.Conc) 50 mg PO DAILY@0800 [facility] Last Admin: 01/10/25 08:54 Dose: 50 mg Omeprazole (Omeprazole 20 Mg Capsule.Dr) 20 mg PO DAILY@0630 [facility] Last Admin: 01/10/25 05:34 Dose: 20 mg Sevelamer Carbonate (Sevelamer Carbonate Tablet 800 Mg Tablet) 800 mg PO TIDWM [facility] Last Admin: 01/10/25 11:23 Dose: 800 mg Sodium Zirconium Cyclosilicate (Sodium Zirconium Cyclosilicate 10 Gm Powd.Pack) 10 gm PO DAILY [facility] Last Admin: 01/10/25 11:23 Dose: 10 gm Home Medications ?Medication ?Instructions ?Recorded ?Confirmed ?Last Taken ?Type sevelamer carbonate 800 mg tablet 800 mg PO TIDWM 09/24/24 12/18/24 11/29/24 History sodium zirconium cyclosilicate 10 10 g PO SUTUTHSA 09/24/24 12/18/24 11/28/24 History gram oral powder packet (Lokelma) Physical Exam 2 Vital Signs: Vital Signs: Last Vital Signs Temp 99.8 F 01/10/25 07:24 Pulse 90 01/10/25 07:24 Resp 20 01/10/25 07:24 BP 103/56 L 01/10/25 07:24 Pulse Ox 95 01/10/25 07:24 O2 Del Method Room Air 01/10/25 07:24 O2 Flow Rate 2 01/10/25 02:29 FiO2 25 12/21/24 09:57 Oxygen Flow Rate 2 12/18/24 04:35 BMI result Body Mass Index 16.1 Const: General: cooperative HEENT: Other: left facial bruising Face and sinus: Yes normal facial exam Mouth: Normal oral and palatal mucosa present Teeth and gingiva: dentition normal Eyes: General: appearance normal, both eyes and all related structures P upils: Equal, round and reactive pupils present Resp: Effort & Inspection: normal respiratory effort Cardio: Rate: regular rate Rhythm: regular rhythm GI: Palpation (GI): Soft to palpation and nontender : General: Yes no CVA tenderness Back/Spine/Pelvis: Back: no CVA tenderness Skin: General skin exam: no rashes or lesions noted Neuro: General: moves all extremities Cranial nerves: Yes Equal, round and reactive pupils present Extrem: General: Yes normal to inspection Psych: Appearance: grossly normal Results Labs 01/09/25 06:50 01/10/25 10:21 Labs: Short CBC 01/08/25 Range/Units 17:19 WBC 21.8 H (4.8-10.8) X10*3/uL Hgb 9.1 L (12.0-16.0) g/dl Hct 27.4 L (37.0-47.0) % Plt Count 230 (160-400) X10*3/uL BMP 01/08/25 01/09/25 01/10/25 17:19 13:41 10:21 Sodium 138 147 H Potassium 6.7 H* D 3.4 Chloride 100 101 Carbon Dioxide 12 L 31 H BUN 133 H 38 H Creatinine 10.86 H* 2.27 H 4.54 H* Calcium 8.0 L D 8.6 Microbiology Microbiology Results: Microbiology 01/08/25 17:20 Blood - Venous Blood Culture - Preliminary Staphylococcus aureus 01/08/25 17:19 Blood - Venous Blood Culture - Preliminary Staphylococcus aureus 12/28/24 12:24 Blood - Venous Blood Culture - Final No growth after 5 days. 12/28/24 11:13 Blood - Venous Blood Culture - Final No growth after 5 days. 12/18/24 08:11 Blood - Venous Blood Culture - Final No growth after 5 days. 12/18/24 08:11 Blood - Venous Blood Culture - Final No growth after 5 days. Assessment and Plan (1) Fever: Status: Acute (2) Opioid use disorder: Status: Acute (3) Drug abuse: Status: Acute (4) Positive blood culture: Status: Acute Plan MSSA bactermia and negative TTE. Source unknown,possible skin source. Would give IV Kefzol Continue it for 4 weeks likely. Also consider check STORMY if bactermia doesnt clear,await followup culture.
--- NOTE | 2025-01-10 14:25 | PM.PNNEP ---
Subjective Subjective Date of Service: 01/10/25 Interval history: seen and examined this morning alert and confused Physical Exam Vital Signs: Vital Signs: Last Vital Signs Temp 99.8 F 01/10/25 07:24 Pulse 90 01/10/25 07:24 Resp 20 01/10/25 07:24 BP 103/56 L 01/10/25 07:24 Pulse Ox 95 01/10/25 07:24 O2 Del Method Room Air 01/10/25 07:24 O2 Flow Rate 2 01/10/25 02:29 FiO2 25 12/21/24 09:57 Oxygen Flow Rate 2 12/18/24 04:35 BMI result Body Mass Index 16.1 cvs: s1s2 Rs; cta Abd; soft Objective Data Labs 01/09/25 06:50 01/10/25 10:21 Labs: Laboratory Results - last 24 hr 01/08/25 01/09/25 01/09/25 17:19 13:41 16:30 WBC 21.8 H RBC 2.90 L Hgb 9.1 L Hct 27.4 L MCV 94.5 MCH 31.4 MCHC 33.2 RDW 16.8 H Plt Count 230 MPV 10.6 Immature Gran % (Auto) 2.6 H Neut % (Auto) 89.7 H Lymph % (Auto) 3.5 L [place] % (Auto) 3.9 Eos % (Auto) 0.0 Baso % (Auto) 0.3 Lymph # (Auto) 0.8 L [place] # (Auto) 0.8 Eos # (Auto) 0.0 Baso # (Auto) 0.1 Abs Immat Gran (auto) 0.57 H Absolute Neuts (auto) 19.5 H Absolute Nucleated RBC 0.000 Nucleated RBC % (auto) 0.0 Sodium 138 Potassium 6.7 H* D Chloride 100 Carbon Dioxide 12 L Anion Gap 33 H BUN 133 H Creatinine 10.86 H* 2.27 H Estim Creat Clear Calc 3.7 17.7 Estimated GFR 4 23 Random Glucose 89 Lactic Acid 1.0 Calcium 8.0 L D Random Vancomycin 15.8 C. difficile Tox B Gene NEGATIVE 01/09/25 01/10/25 23:38 10:21 WBC RBC Hgb Hct MCV MCH MCHC RDW Plt Count MPV Immature Gran % (Auto) Neut % (Auto) Lymph % (Auto) [place] % (Auto) Eos % (Auto) Baso % (Auto) Lymph # (Auto) [place] # (Auto) Eos # (Auto) Baso # (Auto) Abs Immat Gran (auto) Absolute Neuts (auto) Absolute Nucleated RBC Nucleated RBC % (auto) Sodium 147 H Potassium 3.4 Chloride 101 Carbon Dioxide 31 H Anion Gap 18 BUN 38 H Creatinine 4.54 H* Estim Creat Clear Calc 8.8 Estimated GFR 10 Random Glucose 99 Lactic Acid 1.8 Calcium 8.6 Random Vancomycin C. difficile Tox B Gene Microbiology Microbiology Results: Microbiology 01/08/25 17:20 Blood - Venous Blood Culture - Preliminary Staphylococcus aureus 01/08/25 17:19 Blood - Venous Blood Culture - Preliminary Staphylococcus aureus 12/28/24 12:24 Blood - Venous Blood Culture - Final No growth after 5 days. 12/28/24 11:13 Blood - Venous Blood Culture - Final No growth after 5 days. 12/18/24 08:11 Blood - Venous Blood Culture - Final No growth after 5 days. 12/18/24 08:11 Blood - Venous Blood Culture - Final No growth after 5 days. Procedures Date of Service Date of Service: 01/10/25 Assessment & Plan Assessment and plan (1) ESRD (end stage renal disease): Status: Acute Plan Plan 1. ESRD: [facility]u [facility] 2. AMS: improving; multifact and w/u as per primary team 3. H/O Severe HTN: BP now running on low side was on clonidine tid, nifedepine 60 bid, coreg 12.5 bid, hydralazine 100mg tid 4. Renal anemia 5. Hemoaccess: s/p new Pcath and worked well REC: hold BP meds for parameters and track BP, cont HD mwf; card echo if BP remains low will fu cultures for new fever - mssa - plan per ID- discussed and will follow w team Time Spent With Patient Time: Total time managing care of this patient today ____ minutes. Progress Note: Quality Stroke Does the patient have a stroke diagnosis?: No
[2025-01-10 15:52] VITALS: BP 100/58; PULSE 77; RESP 16; TEMP 36.8; O2SAT 100
--- NOTE | 2025-01-10 16:24 | P.CDIM_ITS ---
PROVIDER RESPONSE TEXT: To clarify, the appropriate diagnosis supported by the clinical indicators: Sepsis QUERY TEXT: PHYSICIAN'S DOCUMENTATION REQUEST Date of Query: 01/10/2025 07:29 AM EDT Patient Name: Simran Bolanos Admit Date: 12/18/2024 Dear Twyla Dominguez SPICE GRINDER, A review of the medical record indicates additional documentation may be needed. Please review below and update the documentation accordingly. Clinical Indicators: WBC on 01/09/25: 17.2, bands 11% temperature 100.8, pulse 88, BP 80/54 GPC bacteremia and SIRS noted on 01/09/25 IV Vancomycin ordered on 01/09/25 x1 work up ordered Please clarify which, if any, of the following is the most likely etiology of the above symptoms and treatment rendered: Sepsis Severe Sepsis Septic Shock Localized infection only, without systemic illness Indicate the site/source, such as UTI, pneumonia, etc. Other (explain) Clinically unable to determine (explain) Thank you, Mary Garcia RN Use of terms such as suspected, likely, concern for, or probable (associated with a specific diagnosi s that is being evaluated, monitored, or treated as if it exists) are acceptable and can be coded in the inpatient se tting, when documented at the time of discharge. Please use your independent medical judgment in providing your response. THIS QUERY IS PART OF THE PERMANENT MEDICAL RECORD
[2025-01-10 20:00] VITALS: BP 118/67; PULSE 85; RESP 16; TEMP 37.2; O2SAT 95
[2025-01-10] MEDS: ceFAZolin Sodium 1 GM VIAL IVPUSH (21:41)
[2025-01-11 00:15] VITALS: BP 135/85; PULSE 92; RESP 16; TEMP 36.4; O2SAT 96
[2025-01-11] MEDS: Collagenase Clostridium Hist. 30 GM TUBE 1 APPL TOPICAL ×3 (02:52→20:58)
[2025-01-11 04:00] VITALS: BP 138/90; PULSE 90; RESP 16; TEMP 36.4; O2SAT 96
[2025-01-11 10:11] VITALS: BP 158/90; PULSE 97; RESP 18; TEMP 36.6; O2SAT 95
[2025-01-11 10:25] LABS: Anion Gap 16 (12-20); Carbon Dioxide 28 mmol/L (22-29); Chloride 97 mmol/L (96-108); Glucose Random 75 mg/dL (60-115); Potassium 2.9 mmol/L (3.3-5.1); Sodium 138 mmol/L (135-145)
[2025-01-11 10:36] LABS: Blood Urea Nitrogen 9 mg/dL (9-16); Calcium 9.5 mg/dL (8.4-10.2); Creatinine Clr Calc Pharmacy 24.8; Estimated Glomerular Filt Rate 34
[2025-01-11] MEDS: methADONE HCl 20 MG/2 ML ORAL.CONC 50 MG PO (10:40)
[2025-01-11] MEDS: Heparin Sodium,Porcine 5,000 UNIT/ML VIAL 5000 UNIT SUBCUT ×2 (10:42→20:54)
[2025-01-11] MEDS: levETIRAcetam 500 MG TABLET PO ×2 (10:43→19:33)
--- NOTE | 2025-01-11 12:28 | MHC.CLN ---
F/U PO INTAKE 100% X2 DIET RX: 2GM NA, LOW POTASSIUM, LOW PHOS RECEIVING ENSURE CLEAR TID TO PROMOTE WOUND HEALING SUPP PROVIDES 720KCALS, 24G PROTEIN (SUPP IS RENAL FRIENDLY-NO K+) CONTINUE TO MONITOR PO INTAKE, WEIGHT AND WOUND HEALING OBTAIN RE-WEIGHT R/T FLUCTUATIONS
[2025-01-11] MEDS: Sevelamer Carbonate Tablet 800 MG TABLET PO ×2 (13:39→16:25)
--- NOTE | 2025-01-11 13:54 | P.PNIM_ITS ---
Subjective Subjective Date of Service: 01/11/25 Interval History: Seen and examined this morning Follow-up for bacteremia, placement Afebrile, awake, alert has no specific complaints at time Constitutional Constitutional: Denies chills and Denies fever(s) Physical Exam 2 Vital Signs: Vital Signs: Last Vital Signs Temp 97.8 F 01/11/25 10:11 Pulse 97 01/11/25 10:11 Resp 18 01/11/25 10:11 BP 158/90 H 01/11/25 10:11 Pulse Ox 95 01/11/25 10:11 O2 Del Method Room Air 01/11/25 10:11 O2 Flow Rate 2 01/10/25 02:29 FiO2 25 12/21/24 09:57 Oxygen Flow Rate 2 12/18/24 04:35 BMI result Body Mass Index 16.1 Const: General: cooperative, comfortable, no acute distress, alert and awake Nutritional Appearance: thin Orientation/consciousness: oriented to person and oriented to place Resp: Effort & Inspection: normal respiratory effort, able to speak in complete sentences, no respiratory distress and no use of accessory muscles Cardio: Rate: regular rate GI: Inspection: No distended Palpation (GI): Soft to palpation Neuro: General: oriented to person and oriented to place Objective Data Active Medications Acetaminophen (Acetaminophen 325 Mg Tablet) 975 mg PO Q6H PRN PRN Reason: Headache/Pain, Scale 1-10 Last Admin: 01/10/25 05:43 Dose: 975 mg Documented By: HARJINDER Acetaminophen (Acetaminophen Supp 650 Mg Supp.Rect) 650 mg [place] Q4H PRN PRN Reason: Pain, Mild 1-3,fever,headache Last Admin: 01/09/25 21:09 Dose: 650 mg Documented By: HARJINDER Carvedilol (Carvedilol 12.5 Mg Tablet) 12.5 mg PO BID [facility]; Protocol On Hold: 01/09/25 22:55 Last Admin: 01/09/25 23:01 Dose: Not Given Documented By: HARJINDER Non-Admin Reason: Physician Held Med Cefazolin Sodium (Cefazolin Sodium 1 Gm Vial) 1 gm IVPUSH Q24H ANNA MARIE Last Admin: 01/10/25 21:41 Dose: 1 gm Documented By: JAY Collagenase (Collagenase Clostridium Hist. 30 Gm Tube) 1 appl TOPICAL BID [facility]; Protocol Last Admin: 01/11/25 10:44 Dose: 1 appl Documented By: YONAS Heparin Sodium (Porcine) (Heparin Sodium,Porcine 5,000 Unit/Ml Vial) 5,000 unit SUBCUT Q12H [facility] Last Admin: 01/11/25 10:42 Dose: 5,000 unit Documented By: YONAS Levetiracetam (Levetiracetam 500 Mg Tablet) 500 mg PO BID [facility] Last Admin: 01/11/25 10:43 Dose: 500 mg Documented By: YONAS Melatonin (Melatonin 3 Mg Tablet) 6 mg PO BEDTIME PRN PRN Reason: sleep Methadone HCl (Methadone Hcl 20 Mg/2 Ml Oral.Conc) 50 mg PO DAILY@0800 [facility] Last Admin: 01/11/25 10:40 Dose: 50 mg Documented By: YONAS Co-signed By: DIONY Comments: late due to being in dialysis Omeprazole (Omeprazole 20 Mg Capsule.) 20 mg PO DAILY@0630 [facility] Last Admin: 01/11/25 10:46 Dose: Not Given Documented By: YONAS Non-Admin Reason: previous shift Sevelamer Carbonate (Sevelamer Carbonate Tablet 800 Mg Tablet) 800 mg PO TIDWM [facility] Last Admin: 01/11/25 13:39 Dose: 800 mg Documented By: YONAS Sodium Zirconium Cyclosilicate (Sodium Zirconium Cyclosilicate 10 Gm Powd.Pack) 10 gm PO DAILY [facility] Last Admin: 01/11/25 10:36 Dose: Not Given Documented By: YONAS Non-Admin Reason: K level low Labs 01/09/25 06:50 01/11/25 08:36 Labs: Laboratory Results - last 24 hr 01/08/25 01/11/25 17:19 08:36 MCV 94.5 MCH 31.4 MCHC 33.2 RDW 16.8 H Plt Count 230 MPV 10.6 Immature Gran % (Auto) 2.6 H Neut % (Auto) 89.7 H Lymph % (Auto) 3.5 L [place] % (Auto) 3.9 Eos % (Auto) 0.0 Baso % (Auto) 0.3 Lymph # (Auto) 0.8 L [place] # (Auto) 0.8 Eos # (Auto) 0.0 Baso # (Auto) 0.1 Abs Immat Gran (auto) 0.57 H Absolute Neuts (auto) 19.5 H Absolute Nucleated RBC 0.000 Nucleated RBC % (auto) 0.0 Anion Gap 33 H 16 Estim Creat Clear Calc 3.7 24.8 Estimated GFR 4 34 Random Glucose 89 75 Lactic Acid 1.0 Calcium 8.0 L D 9.5 D Microbiology Microbiology Results: Microbiology 01/08/25 17:19 Blood Culture - Final Blood - Venous Staphylococcus aureus 01/08/25 17:20 Blood Culture - Final Blood - Venous Staphylococcus aureus Assessment and Plan (1) Positive blood culture: Status: Acute Plan 49 year old female with history of ESRD on hemodialysis Thursday/Thursday/Thursday with history of noncompliance, seizure disorder, anemia of chronic kidney disease, polysubstance IV drug use disorder on methadone who was recently admitted for hypertensive urgency and VRE bacteremia d/c with 28 days of linezolid on 12/03 who was brought to the emergency department on December 18 with altered mental status after being found unresponsive with concern for status epilepticus intubated in the emergency room and admitted to the ICU, downgraded to the medical floor on 12/23 sepsis due to Staph aureus bacteremia 2/2 blood cultures growing MSSA CXR neg for PNA. cdiff neg echo ordered with no obvious vegetation seen by ID, possible skin source, Switch to cefazolin recommend 4 weeks IV Surveillance blood cultures pending Start oral vancomycin for C diff prophylaxis for duration of antibiotics +1 week Acute toxic\metabolic encephalopathy Due to in hospital delirium, anoxic injury EEG, No evidence of seizure disorder. Frequent reorientation and redirection HCP invoked Hypertensive urgency BP fluctuating, was very high, then very low. Continued on Coreg (now on hold for hypotension as well) hydralazine, clonidine and Nifedipine stopped Physical deconditioning Awaiting Rehab placement Lethargy. Resolved Could be related to Keppra high dose Increase physical activity as tolerated ESRD on hemodialysis-MWF Se[facility] Nephrology following Permacath replaced by IR 01/03 Hyperkalemia ESRD HD on MWF continue daily lokelma Recent C diff infection Hold p.o. vancomycin for now Seizure disorder [facility] Polysubstance use disorder Addiction Team following Methadone Recent bacteremia with VRE Was on PO linezolid for 28 days, completed course Repeated blood cultures 12/28- Final culture no growth right scapula - unstageable pressure injury sacrum DTI poa wound care as per wound care nurse. see note for full recommendations DVT prophylaxis Mechanical devices, Heparin Full code Disposition, awaiting placement Quality Stroke Does the patient have a stroke diagnosis?: No VTE Prior VTE?: No VTE Risk Level:: Medical - moderate - high VTE Device Contraindication: Treatment Not Indicated VTE Drug Contraindication: N/A - Med Ordered
[2025-01-11 15:08] VITALS: BP 136/85; PULSE 97; RESP 16; TEMP 36.2; O2SAT 97
--- NOTE | 2025-01-11 15:20 | MHC.CM.PN ---
Addendum entered by Aimee Harmon 01/11/25 16:11: This CM placed a call to [facility] to attempt setting up methadone guest dosing, file created with them (reference # [id number]), they are requesting a release of information signed by the patient, then their clinicians will review her file and let us know their next available start date. Original Note: EMR reviewed and per MD rounds, pt is not medically cleared for discharge due to management of bacteremia. [facility] continues to be the only SNF interested/offering a bed/following. This CM spoke with Kenzie in admissions at [facility] ([phone]: [phone]) to provide her with an update. Kenzie is requesting a Hep B. panel to be sent to them, Kenzie updated that it is currently pending.
[2025-01-11] MEDS: vancomycin HCL 125 MG CAPSULE PO ×2 (16:25→19:33)
[2025-01-11 18:39] LABS: Vancomycin Random 7.2 mcg/mL (15-20)
[2025-01-11 20:00] VITALS: BP 139/102; PULSE 90; RESP 16; TEMP 36.1; O2SAT 96
[2025-01-11] MEDS: ceFAZolin Sodium 1 GM VIAL IVPUSH (20:54)
[2025-01-11] MEDS: Melatonin 3 MG TABLET 6 MG PO (22:24)
--- NOTE | 2025-01-11 23:02 | P.PNNP_ITS ---
Subjective Subjective Date of Service: 01/11/25 Interval history: Seen and examined this morning Follow-up for bacteremia, placement Afebrile, awake, alert has no specific complaints at time Physical Exam 2 Vital Signs: Vital Signs: Last Vital Signs Temp 97.0 F 01/11/25 20:00 Pulse 90 01/11/25 20:00 Resp 16 01/11/25 20:00 BP 139/102 H 01/11/25 20:00 Pulse Ox 96 01/11/25 20:00 O2 Del Method Room Air 01/11/25 20:00 O2 Flow Rate 2 01/10/25 02:29 FiO2 25 12/21/24 09:57 Oxygen Flow Rate 2 12/18/24 04:35 BMI result Body Mass Index 16.1 cvs: s1s2 RS; cta Abd; soft Objective Data Labs 01/09/25 06:50 01/11/25 08:36 Labs: Laboratory Results - last 24 hr 01/08/25 01/11/25 01/11/25 17:19 08:36 18:08 WBC 21.8 H RBC 2.90 L Hgb 9.1 L Hct 27.4 L MCV 94.5 MCH 31.4 MCHC 33.2 RDW 16.8 H Plt Count 230 MPV 10.6 Immature Gran % (Auto) 2.6 H Neut % (Auto) 89.7 H Lymph % (Auto) 3.5 L [place] % (Auto) 3.9 Eos % (Auto) 0.0 Baso % (Auto) 0.3 Lymph # (Auto) 0.8 L [place] # (Auto) 0.8 Eos # (Auto) 0.0 Baso # (Auto) 0.1 Abs Immat Gran (auto) 0.57 H Absolute Neuts (auto) 19.5 H Absolute Nucleated RBC 0.000 Nucleated RBC % (auto) 0.0 Sodium 138 138 Potassium 6.7 H* D 2.9 L* Chloride 100 97 Carbon Dioxide 12 L 28 Anion Gap 33 H 16 BUN 133 H 9 Creatinine 10.86 H* 1.62 H Estim Creat Clear Calc 3.7 24.8 Estimated GFR 4 34 Random Glucose 89 75 Lactic Acid 1.0 Calcium 8.0 L D 9.5 D Random Vancomycin 7.2 L Microbiology Microbiology Results: Microbiology 01/08/25 17:19 Blood - Venous Blood Culture - Final Staphylococcus aureus 01/08/25 17:20 Blood - Venous Blood Culture - Final Staphylococcus aureus 12/28/24 12:24 Blood - Venous Blood Culture - Final No growth after 5 days. 12/28/24 11:13 Blood - Venous Blood Culture - Final No growth after 5 days. 12/18/24 08:11 Blood - Venous Blood Culture - Final No growth after 5 days. 12/18/24 08:11 Blood - Venous Blood Culture - Final No growth after 5 days. Procedures Date of Service Date of Service: 01/11/25 Assessment & Plan Assessment and plan (1) ESRD (end stage renal disease): Status: Acute Plan 1. ESRD: [facility] 2. AMS: improving; multifact and w/u as per primary team 3. H/O Severe HTN: BP now running on low side was on clonidine tid, nifedepine 60 bid, coreg 12.5 bid, hydralazine 100mg tid 4. Renal anemia 5. Hemoaccess: s/p new Pcath and worked well REC: hold BP meds for parameters and track BP, cont HD mwf; card echo if BP remains low will fu cultures for new fever - mssa - on abx for skin source - discussed and will follow w team Time Spent With Patient Time: Total time managing care of this patient today ____ minutes. Progress Note: Quality Stroke Does the patient have a stroke diagnosis?: No
[2025-01-12 03:28] VITALS: BP 126/84; PULSE 77; RESP 16; TEMP 36.8; O2SAT 97
[2025-01-12 06:00] VITALS: BMI 17.3
[2025-01-12] MEDS: Omeprazole 20 MG CAPSULE.DR PO (06:17)
[2025-01-12 07:17] VITALS: BP 131/88; PULSE 81; RESP 18; TEMP 36.7; O2SAT 100
[2025-01-12 07:44] LABS: Creatinine Clr Calc Pharmacy 10.5; Estimated Glomerular Filt Rate 12
[2025-01-12 08:33] LABS: Anion Gap 20 (12-20); Blood Urea Nitrogen 34 mg/dL (9-16); Calcium 9.1 mg/dL (8.4-10.2); Carbon Dioxide 25 mmol/L (22-29); Chloride 98 mmol/L (96-108); Glucose Random 84 mg/dL (60-115); Potassium 3.4 mmol/L (3.3-5.1); Sodium 140 mmol/L (135-145)
[2025-01-12 08:41] LABS: HBc Num1 0.11 S/CO (0.00-0.79); HBsAGNum1 0.39 S/CO (0.00-0.99); Hepatitis B Core Antibody Nonreactive (Nonreactive); Hepatitis B Surface Antigen Negative (Negative); ~Hepatitis B Surface Antibody NONREACTIVE (Nonreactive)
[2025-01-12] MEDS: Collagenase Clostridium Hist. 30 GM TUBE 1 APPL TOPICAL ×2 (10:00→21:14)
[2025-01-12 10:20] LABS: Hematocrit 30.1 % (37.0-47.0); Hemoglobin 9.2 g/dl (12.0-16.0); Mean Corpuscular HGB Conc 30.6 g/dl (31.0-35.0); Mean Corpuscular Hemoglobin 29.8 pg (27.0-33.0); Mean Corpuscular Volume 97.4 fL (80.0-98.0); Mean Platelet Volume 11.3 fL (9.4-12.3); Platelet Count 218 X10*3/uL (160-400); Red Blood Count 3.09 X10*6/uL (4.20-5.50); Red Cell Distribution Width 16.3 % (11.0-16.0); White Blood Count 8.3 X10*3/uL (4.8-10.8)
[2025-01-12] MEDS: methADONE HCl 20 MG/2 ML ORAL.CONC 50 MG PO (10:39)
[2025-01-12] MEDS: vancomycin HCL 125 MG CAPSULE PO ×4 (10:40→21:12)
[2025-01-12] MEDS: Heparin Sodium,Porcine 5,000 UNIT/ML VIAL 5000 UNIT SUBCUT ×2 (10:41→21:12)
[2025-01-12] MEDS: Sevelamer Carbonate Tablet 800 MG TABLET PO ×2 (10:41→18:11)
[2025-01-12] MEDS: levETIRAcetam 500 MG TABLET PO ×2 (10:41→21:12)
--- NOTE | 2025-01-12 12:43 | P.PNIM_ITS ---
Subjective Subjective Date of Service: 01/12/25 Interval History: Seen and examined this morning Follow-up for bacteremia No overnight events Reports feeling tired but currently sitting up in bed, awake, alert Constitutional Constitutional: Denies chills and Denies fever(s) Physical Exam 2 Vital Signs: Vital Signs: Last Vital Signs Temp 98.1 F 01/12/25 07:17 Pulse 81 01/12/25 07:17 Resp 18 01/12/25 07:17 BP 131/88 01/12/25 07:17 Pulse Ox 100 01/12/25 07:17 O2 Del Method Room Air 01/12/25 07:17 O2 Flow Rate 2 01/10/25 02:29 FiO2 25 12/21/24 09:57 Oxygen Flow Rate 2 12/18/24 04:35 BMI result Body Mass Index 17.3 Const: General: cooperative, comfortable, no acute distress, alert and awake Nutritional Appearance: thin Orientation/consciousness: oriented to person and oriented to place Resp: Effort & Inspection: normal respiratory effort, able to speak in complete sentences, no respiratory distress and no use of accessory muscles Cardio: Rate: regular rate GI: Inspection: No distended Palpation (GI): Soft to palpation Neuro: General: oriented to person and oriented to place Objective Data Active Medications Acetaminophen (Acetaminophen 325 Mg Tablet) 975 mg PO Q6H PRN PRN Reason: Headache/Pain, Scale 1-10 Last Admin: 01/10/25 05:43 Dose: 975 mg Documented By: HARJINDER Acetaminophen (Acetaminophen Supp 650 Mg Supp.Rect) 650 mg [place] Q4H PRN PRN Reason: Pain, Mild 1-3,fever,headache Last Admin: 01/09/25 21:09 Dose: 650 mg Documented By: HARJINDER Carvedilol (Carvedilol 12.5 Mg Tablet) 12.5 mg PO BID [facility]; Protocol On Hold: 01/09/25 22:55 Last Admin: 01/09/25 23:01 Dose: Not Given Documented By: HARJINDER Non-Admin Reason: Physician Held Med Cefazolin Sodium (Cefazolin Sodium 1 Gm Vial) 1 gm IVPUSH Q24H ANNA MARIE Last Admin: 01/11/25 20:54 Dose: 1 gm Documented By: DOUGLAS Collagenase (Collagenase Clostridium Hist. 30 Gm Tube) 1 appl TOPICAL BID [facility]; Protocol Last Admin: 01/11/25 20:58 Dose: 1 appl Documented By: DOUGLAS Heparin Sodium (Porcine) (Heparin Sodium,Porcine 5,000 Unit/Ml Vial) 5,000 unit SUBCUT Q12H [facility] Last Admin: 01/12/25 10:41 Dose: 5,000 unit Documented By: AMBER Levetiracetam (Levetiracetam 500 Mg Tablet) 500 mg PO BID [facility] Last Admin: 01/12/25 10:41 Dose: 500 mg Documented By: AMBER Melatonin (Melatonin 3 Mg Tablet) 6 mg PO BEDTIME PRN PRN Reason: sleep Last Admin: 01/11/25 22:24 Dose: 6 mg Documented By: DOUGLAS Methadone HCl (Methadone Hcl 20 Mg/2 Ml Oral.Conc) 50 mg PO DAILY@0800 [facility] Last Admin: 01/12/25 10:39 Dose: 50 mg Documented By: AMBER Co-signed By: JADIEL Omeprazole (Omeprazole 20 Mg Capsule.) 20 mg PO DAILY@0630 [facility] Last Admin: 01/12/25 06:17 Dose: 20 mg Documented By: DOUGLAS Sevelamer Carbonate (Sevelamer Carbonate Tablet 800 Mg Tablet) 800 mg PO TIDWM [facility] Last Admin: 01/12/25 10:41 Dose: 800 mg Documented By: AMBER Sodium Zirconium Cyclosilicate (Sodium Zirconium Cyclosilicate 10 Gm Powd.Pack) 10 gm PO DAILY [facility] On Hold: 01/12/25 08:16 Last Admin: 01/11/25 10:36 Dose: Not Given Documented By: YONAS Non-Admin Reason: K level low Vancomycin HCl (Vancomycin Hcl 125 Mg Capsule) 125 mg PO QID [facility] Last Admin: 01/12/25 10:40 Dose: 125 mg Documented By: AMBER Labs 01/12/25 10:06 01/12/25 06:40 Labs: Laboratory Results - last 24 hr 01/11/25 01/11/25 01/12/25 14:22 18:08 06:40 MCV MCH MCHC RDW Plt Count MPV Absolute Nucleated RBC Nucleated RBC % (auto) Anion Gap 20 Estim Creat Clear Calc 10.5 Estimated GFR 12 Random Glucose 84 Calcium 9.1 Random Vancomycin 7.2 L Hep Bs Antigen Negative Hep Bs Antibody NONREACTIVE Hep B Core Total Ab Nonreactive 01/12/25 10:06 MCV 97.4 MCH 29.8 MCHC 30.6 L RDW 16.3 H Plt Count 218 MPV 11.3 Absolute Nucleated RBC 0.000 Nucleated RBC % (auto) 0.0 Anion Gap Estim Creat Clear Calc Estimated GFR Random Glucose Calcium Random Vancomycin Hep Bs Antigen Hep Bs Antibody Hep B Core Total Ab Assessment and Plan (1) Positive blood culture: Status: Acute Plan 49 year old female with history of ESRD on hemodialysis Thursday/Thursday/Thursday with history of noncompliance, seizure disorder, anemia of chronic kidney disease, polysubstance IV drug use disorder on methadone who was recently admitted for hypertensive urgency and VRE bacteremia d/c with 28 days of linezolid on 12/03 who was brought to the emergency department on December 18 with altered mental status after being found unresponsive with concern for status epilepticus intubated in the emergency room and admitted to the ICU, downgraded to the medical floor on 12/23 sepsis due to Staph aureus bacteremia 2/2 blood cultures growing MSSA CXR neg for PNA. cdiff neg echo ordered with no obvious vegetation seen by ID, possible skin source, Switch to cefazolin recommend 4 weeks IV Surveillance blood cultures pending Start oral vancomycin for C diff prophylaxis for duration of antibiotics +1 week (recent cdif infection) Acute toxic\metabolic encephalopathy Due to in hospital delirium, anoxic injury EEG, No evidence of seizure disorder. Frequent reorientation and redirection HCP invoked Hypertensive urgency BP fluctuating, was very high, then very low. Continued on Coreg (now on hold for hypotension as well) hydralazine, clonidine and Nifedipine stopped Physical deconditioning Awaiting Rehab placement Lethargy. Resolved Could be related to Keppra high dose Increase physical activity as tolerated ESRD on hemodialysis-[facility] following Permacath replaced by IR 01/03 Hyperkalemia ESRD HD on [facility] continue daily lokelma Seizure disorder Keppra Polysubstance use disorder Addiction Team following Methadone Recent bacteremia with VRE Was on PO linezolid for 28 days, completed course Repeated blood cultures 12/28- Final culture no growth right scapula - unstageable pressure injury sacrum DTI poa wound care as per wound care nurse. see note for full recommendations DVT prophylaxis Mechanical devices, Heparin Full code Disposition, awaiting placement Quality Stroke Does the patient have a stroke diagnosis?: No VTE Prior VTE?: No VTE Risk Level:: Medical - moderate - high VTE Device Contraindication: Treatment Not Indicated VTE Drug Contraindication: N/A - Med Ordered
--- NOTE | 2025-01-12 13:03 | MHC.CM.PN ---
Addendum entered by June Marie 01/12/25 15:55: releases were signed by HCP and sent back via email. Nica Bolanos email: , releases were faxed to [facility] on 01/12/25 Original Note: CM received release of info froms from [facility], one for [facility] and one for [facility] to be able to give them ([place] info.) These were sent to GABBY Yousif via email for her to sign and return. Re: HD, hep B panel results were faxed to [facility] in [place].
[2025-01-12 15:27] VITALS: BP 157/98; PULSE 80; RESP 16; TEMP 36.8; O2SAT 98
--- NOTE | 2025-01-12 16:15 | P.PNNP_ITS ---
Subjective Subjective Date of Service: 01/12/25 Interval history: Seen and examined this morning Follow-up for bacteremia No overnight events Reports feeling tired but currently sitting up in bed, awake, alert Physical Exam 2 Vital Signs: Vital Signs: Last Vital Signs Temp 98.3 F 01/12/25 15:27 Pulse 80 01/12/25 15:27 Resp 16 01/12/25 15:27 BP 157/98 H 01/12/25 15:27 Pulse Ox 98 01/12/25 15:27 O2 Del Method Room Air 01/12/25 15:27 O2 Flow Rate 2 01/10/25 02:29 FiO2 25 12/21/24 09:57 Oxygen Flow Rate 2 12/18/24 04:35 BMI result Body Mass Index 17.3 cvs: s1s2 Rs; cta Abd; soft IJ PC Objective Data Labs 01/12/25 10:06 01/12/25 06:40 Labs: Laboratory Results - last 24 hr 01/11/25 01/11/25 01/12/25 14:22 18:08 06:40 WBC RBC Hgb Hct MCV MCH MCHC RDW Plt Count MPV Absolute Nucleated RBC Nucleated RBC % (auto) Sodium 140 Potassium 3.4 Chloride 98 Carbon Dioxide 25 Anion Gap 20 BUN 34 H Creatinine 4.11 H* Estim Creat Clear Calc 10.5 Estimated GFR 12 Random Glucose 84 Calcium 9.1 Random Vancomycin 7.2 L Hep Bs Antigen Negative Hep Bs Antibody NONREACTIVE Hep B Core Total Ab Nonreactive 01/12/25 10:06 WBC 8.3 RBC 3.09 L Hgb 9.2 L Hct 30.1 L MCV 97.4 MCH 29.8 MCHC 30.6 L RDW 16.3 H Plt Count 218 MPV 11.3 Absolute Nucleated RBC 0.000 Nucleated RBC % (auto) 0.0 Sodium Potassium Chloride Carbon Dioxide Anion Gap BUN Creatinine Estim Creat Clear Calc Estimated GFR Random Glucose Calcium Random Vancomycin Hep Bs Antigen Hep Bs Antibody Hep B Core Total Ab Microbiology Microbiology Results: Microbiology 01/08/25 17:19 Blood - Venous Blood Culture - Final Staphylococcus aureus 01/08/25 17:20 Blood - Venous Blood Culture - Final Staphylococcus aureus 12/28/24 12:24 Blood - Venous Blood Culture - Final No growth after 5 days. 12/28/24 11:13 Blood - Venous Blood Culture - Final No growth after 5 days. 12/18/24 08:11 Blood - Venous Blood Culture - Final No growth after 5 days. 12/18/24 08:11 Blood - Venous Blood Culture - Final No growth after 5 days. Procedures Date of Service Date of Service: 01/12/25 Assessment & Plan Assessment and plan (1) ESRD (end stage renal disease): Status: Acute Plan 1. ESRD: [facility]u [facility] 2. AMS: improving; multifact and w/u as per primary team 3. H/O Severe HTN: BP now running on low side was on clonidine tid, nifedepine 60 bid, coreg 12.5 bid, hydralazine 100mg tid 4. Renal anemia 5. Hemoaccess: s/p new Pcath and worked well REC: hold BP meds for parameters and track BP, presently only on coreg cont HD mwf; card echo if BP remains low will fu cultures for new fever - mssa - on abx for skin source - discussed and will follow w team Time Spent With Patient Time: Total time managing care of this patient today ____ minutes. Progress Note: Quality Stroke Does the patient have a stroke diagnosis?: No
[2025-01-12 20:00] VITALS: BP 148/100; PULSE 82; RESP 16; TEMP 37; O2SAT 95
[2025-01-12] MEDS: ceFAZolin Sodium 1 GM VIAL IVPUSH (21:12)
[2025-01-13 03:40] VITALS: BP 164/97; PULSE 83; RESP 16; TEMP 37.1; O2SAT 98
[2025-01-13 05:27] VITALS: BMI 18.5
[2025-01-13] MEDS: Omeprazole 20 MG CAPSULE.DR PO (05:39)
[2025-01-13 07:18] VITALS: BP 166/99; PULSE 91; RESP 20; TEMP 37.1; O2SAT 94
[2025-01-13] MEDS: Sevelamer Carbonate Tablet 800 MG TABLET PO ×3 (07:37→16:33)
[2025-01-13] MEDS: vancomycin HCL 125 MG CAPSULE PO ×4 (07:37→21:15)
[2025-01-13] MEDS: levETIRAcetam 500 MG TABLET PO ×2 (07:38→21:15)
[2025-01-13] MEDS: methADONE HCl 20 MG/2 ML ORAL.CONC 50 MG PO (07:38)
[2025-01-13 09:25] LABS: Anion Gap 16 (12-20); Blood Urea Nitrogen 26 mg/dL (9-16); Calcium 9.5 mg/dL (8.4-10.2); Carbon Dioxide 26 mmol/L (22-29); Chloride 99 mmol/L (96-108); Estimated Glomerular Filt Rate 16; Glucose Random 122 mg/dL (60-115); Potassium 3.2 mmol/L (3.3-5.1); Sodium 138 mmol/L (135-145)
--- NOTE | 2025-01-13 10:50 | P.PNIM_ITS ---
Subjective Subjective Date of Service: 01/13/25 Interval History: seen and examined this morning follow up for bacteremia, encephalopathy Review of Systems Review of Systems: Yes all other systems are reviewed and are negative Constitutional Constitutional: Denies chills and Denies fever(s) Cardiovascular Cardiovascular: Denies chest pain, Denies palpitations and Denies dyspnea Respiratory Respiratory: Denies cough and Denies dyspnea Gastrointestinal Gastrointestinal: Denies abdominal pain Endocrine Endocrine: Denies palpitations Physical Exam 2 Vital Signs: Vital Signs: Last Vital Signs Temp 98.8 F 01/13/25 07:18 Pulse 91 01/13/25 07:18 Resp 20 01/13/25 07:18 BP 166/99 H 01/13/25 07:18 Pulse Ox 94 01/13/25 07:18 O2 Del Method Room Air 01/13/25 07:18 O2 Flow Rate 2 01/10/25 02:29 FiO2 25 12/21/24 09:57 Oxygen Flow Rate 2 12/18/24 04:35 BMI result Body Mass Index 18.5 Const: General: cooperative, comfortable, no acute distress, alert and awake Nutritional Appearance: thin Orientation/consciousness: oriented to person and oriented to place Resp: Effort & Inspection: normal respiratory effort, able to speak in complete sentences, no respiratory distress and no use of accessory muscles Cardio: Rate: regular rate GI: Inspection: No distended Palpation (GI): Soft to palpation Neuro: General: oriented to person and oriented to place Objective Data Active Medications Acetaminophen (Acetaminophen 325 Mg Tablet) 975 mg PO Q6H PRN PRN Reason: Headache/Pain, Scale 1-10 Last Admin: 01/10/25 05:43 Dose: 975 mg Documented By: HARJINDER Acetaminophen (Acetaminophen Supp 650 Mg Supp.Rect) 650 mg [place] Q4H PRN PRN Reason: Pain, Mild 1-3,fever,headache Last Admin: 01/09/25 21:09 Dose: 650 mg Documented By: HARJINDER Carvedilol (Carvedilol 12.5 Mg Tablet) 12.5 mg PO BID [facility]; Protocol On Hold: 01/09/25 22:55 Resume: 01/13/25 21:00 Last Admin: 01/09/25 23:01 Dose: Not Given Documented By: HARJINDER Non-Admin Reason: Physician Held Med Cefazolin Sodium (Cefazolin Sodium 1 Gm Vial) 1 gm IVPUSH Q24H [facility] Last Admin: 01/12/25 21:12 Dose: 1 gm Documented By: GONSALO Collagenase (Collagenase Clostridium Hist. 30 Gm Tube) 1 appl TOPICAL BID [facility]; Protocol Last Admin: 01/12/25 21:14 Dose: 1 appl Documented By: GONSALO Heparin Sodium (Porcine) (Heparin Sodium,Porcine 5,000 Unit/Ml Vial) 5,000 unit SUBCUT Q12H [facility] Last Admin: 01/12/25 21:12 Dose: 5,000 unit Documented By: GONSALO Levetiracetam (Levetiracetam 500 Mg Tablet) 500 mg PO BID [facility] Last Admin: 01/13/25 07:38 Dose: 500 mg Documented By: MARY Melatonin (Melatonin 3 Mg Tablet) 6 mg PO BEDTIME PRN PRN Reason: sleep Last Admin: 01/11/25 22:24 Dose: 6 mg Documented By: DOUGLAS Methadone HCl (Methadone Hcl 20 Mg/2 Ml Oral.Conc) 50 mg PO DAILY@0800 [facility] Last Admin: 01/13/25 07:38 Dose: 50 mg Documented By: MARY Co-signed By: AMBER Omeprazole (Omeprazole 20 Mg Capsule.) 20 mg PO DAILY@0630 [facility] Last Admin: 01/13/25 05:39 Dose: 20 mg Documented By: GONSALO Sevelamer Carbonate (Sevelamer Carbonate Tablet 800 Mg Tablet) 800 mg PO TIDWM [facility] Last Admin: 01/13/25 07:37 Dose: 800 mg Documented By: MARY Sodium Zirconium Cyclosilicate (Sodium Zirconium Cyclosilicate 10 Gm Powd.Pack) 10 gm PO DAILY [facility] Vancomycin HCl (Vancomycin Hcl 125 Mg Capsule) 125 mg PO QID [facility] Last Admin: 01/13/25 07:37 Dose: 125 mg Documented By: MARY Labs 01/12/25 10:06 01/13/25 09:01 Labs: Laboratory Results - last 24 hr 01/13/25 09:01 Anion Gap 16 Estim Creat Clear Calc 15.0 Estimated GFR 16 Random Glucose 122 H Calcium 9.5 Microbiology Microbiology Results: Microbiology 01/11/25 14:54 Blood Culture - Preliminary Blood - Venous No growth after 24 hours. 01/11/25 14:23 Blood Culture - Preliminary Blood - Venous No growth after 24 hours. Assessment and Plan (1) Acute encephalopathy: Status: Acute (2) ESRD (end stage renal disease): Status: Acute Plan 49 year old female with history of ESRD on hemodialysis Thursday/Thursday/Thursday with history of noncompliance, seizure disorder, anemia of chronic kidney disease, polysubstance IV drug use disorder on methadone who was recently admitted for hypertensive urgency and VRE bacteremia d/c with 28 days of linezolid on 12/03 who was brought to the emergency department on December 18 with altered mental status after being found unresponsive with concern for status epilepticus intubated in the emergency room and admitted to the ICU, downgraded to the medical floor on 12/23 sepsis due to Staph aureus bacteremia 2/2 blood cultures growing MSSA CXR neg for PNA. cdiff neg echo ordered with no obvious vegetation seen by ID, possible skin source, Switch to cefazolin recommend 4 weeks IV Surveillance blood cultures negative to date Start oral vancomycin for C diff prophylaxis for duration of antibiotics +1 week (recent cdif infection) Acute toxic\metabolic encephalopathy Due to in hospital delirium, anoxic injury EEG, No evidence of seizure disorder. Frequent reorientation and redirection discussed results of brain MRI with neuro - likely anoxic injury, if pt has improvement will likely take up to a year and will probably be incomplete HCP invoked Hypertensive urgency BP fluctuating, was very high, then very low. Continued on Coreg hydralazine, clonidine and Nifedipine stopped Physical deconditioning Awaiting Rehab placement Lethargy. Resolved Increase physical activity as tolerated ESRD on hemod[facility] replaced by IR 01/03 Hyperkalemia ESRD HD on [facility] changed to non-dialysis days only due Seizure disorder [facility] Polysubstance use disorder Addiction Team following Methadone Recent bacteremia with VRE Was on PO linezolid for 28 days, completed course Repeated blood cultures 12/28- Final culture no growth right scapula - unstageable pressure injury sacrum DTI poa wound care as per wound care nurse. see note for full recommendations DVT prophylaxis Mechanical devices, Heparin Full code Disposition, awaiting placement Quality Stroke Does the patient have a stroke diagnosis?: No VTE Prior VTE?: No VTE Risk Level:: Medical - moderate - high VTE Device Contraindication: Treatment Not Indicated VTE Drug Contraindication: N/A - Med Ordered
--- NOTE | 2025-01-13 12:48 | MHC.CM.PN ---
Addendum entered by Fadia Whitaker RN 01/13/25 15:56: [facility] LEVEL ONE SUBMITTED, WILL NEED TO FAX TO [facility] AT [facility] [phone] ONCE ACCEPTED AND UPLOADED TO SNF REF. Addendum entered by Fadia Whitaker RN 01/13/25 13:23: CM CONTACTED [facility] [phone] OPTION #2 AND THEN OPTION #0, [facility] SPOKE W/LIZETH WHO CHECKED ON STATUS HOWEVER THEY HAVE NOT RECEIVED RELEASES, LIZETH PROVIDED CM A NEW FAX# [phone] AND [facility] HAVE BEEN REFAXED, LIZETH DID REPORT THEY SHOULD BE ABLE TO START PT ON 01/18 IF PT IS DISCHARGED ON 01/17. Addendum entered by Fadia Whitaker RN 01/13/25 13:06: [facility] CONTACT [facility] AT [phone] EXT [id number] Original Note: EMR REVIEWED, HOSPITALIST INITIALLY THOUGHT PT WOULD BE MEDICALLY CLEARED FOR DC TODAY, MDS AND MED LIST FAXED TO [facility] MDS SCREENING ON 01/13 AND SENT TO [facility] VIA [place]. PER HOSPITALIST PT WILL NEED RE-EVAL BY NEURO, NEURO UNABLE TO SEE PT UNTIL WEDNESDAY 01/17, [facility] UPDATED.
--- NOTE | 2025-01-13 13:08 | MHC.CLN ---
F/U RE-WT 42.9KG CONSISTENT WITH ADMISSION WT PO INTAKE 50-100% DIET RX: 2GM NA, LOW POTASSIUM, LOW PHOS RECEIVING ENSURE CLEAR TID TO PROMOTE WOUND HEALING SUPP PROVIDES 720KCALS, 24G PROTEIN (SUPP IS RENAL FRIENDLY-NO K+) CONTINUE TO MONITOR PO INTAKE, WEIGHT AND WOUND HEALING
--- NOTE | 2025-01-13 13:31 | HO.WOUND ---
Wound Consult: Follow up Attempted 49yr old?female admitted to [facility] on 12/18/24 - See progress notes and H&P for detailed history.? Wound consult follow up for Right Posterior Shoulder and Coccyx.? Patient was eating her breafast at the time of my arrival to bedside we agreed I would attempt to assess her wounds at a future date and time. She was noted to have a few ensure on her bedside table and she was educated on the importance of drinking the ensures to aid her in many ways including wound healing. No new topical recommendations needed at this time - continue current topical orders.
[2025-01-13 15:36] VITALS: BP 134/83; PULSE 100; RESP 14; TEMP 36.2; O2SAT 95
[2025-01-13] MEDS: Collagenase Clostridium Hist. 30 GM TUBE 1 APPL TOPICAL ×2 (15:59→22:22)
[2025-01-13 19:40] VITALS: BP 110/77; PULSE 93; RESP 20; TEMP 36.3; O2SAT 96
[2025-01-13] MEDS: Heparin Sodium,Porcine 5,000 UNIT/ML VIAL 5000 UNIT SUBCUT (21:14)
[2025-01-13] MEDS: ceFAZolin Sodium 1 GM VIAL IVPUSH (21:15)
[2025-01-13] MEDS: Melatonin 3 MG TABLET 6 MG PO (21:15)
[2025-01-13 21:16] VITALS: BP 110/77; PULSE 93
[2025-01-13] MEDS: carvediloL 12.5 MG TABLET PO (21:16)
[2025-01-14 04:00] VITALS: BP 120/87; PULSE 68; RESP 18; TEMP 37.1; O2SAT 98
[2025-01-14 05:56] VITALS: BMI 19.6
[2025-01-14] MEDS: Omeprazole 20 MG CAPSULE.DR PO (06:04)
[2025-01-14 07:46] VITALS: BP 104/60; PULSE 74; RESP 19; TEMP 36.3; O2SAT 95
[2025-01-14] MEDS: Heparin Sodium,Porcine 5,000 UNIT/ML VIAL 5000 UNIT SUBCUT ×2 (08:02→21:44)
[2025-01-14] MEDS: levETIRAcetam 500 MG TABLET PO ×2 (08:03→21:45)
[2025-01-14] MEDS: carvediloL 12.5 MG TABLET PO ×2 (08:03→21:44)
[2025-01-14] MEDS: Sevelamer Carbonate Tablet 800 MG TABLET PO ×3 (08:03→17:25)
[2025-01-14] MEDS: Collagenase Clostridium Hist. 30 GM TUBE 1 APPL TOPICAL ×2 (08:04→22:37)
[2025-01-14] MEDS: methADONE HCl 20 MG/2 ML ORAL.CONC 50 MG PO (08:04)
[2025-01-14] MEDS: vancomycin HCL 125 MG CAPSULE PO ×4 (08:08→21:45)
[2025-01-14] MEDS: Potassium Chloride ER 20 MEQ TAB.ER.PRT 40 MEQ PO (09:24)
--- NOTE | 2025-01-14 14:33 | HO.PM.IMPN ---
Subjective Subjective Date of Service: 01/14/25 Interval History: seen and examined this morning follow up for bacteremia, encephalopathy Review of Systems Review of Systems: Yes all other systems are reviewed and are negative Constitutional Constitutional: Denies chills and Denies fever(s) Cardiovascular Cardiovascular: Denies chest pain, Denies palpitations and Denies dyspnea Respiratory Respiratory: Denies cough and Denies dyspnea Gastrointestinal Gastrointestinal: Denies abdominal pain Endocrine Endocrine: Denies palpitations Physical Exam Vital Signs: Vital Signs: Last Vital Signs Temp 97.3 F 01/14/25 07:46 Pulse 74 01/14/25 07:46 Resp 19 01/14/25 07:46 BP 104/60 01/14/25 07:46 Pulse Ox 95 01/14/25 07:46 O2 Del Method Room Air 01/14/25 07:46 O2 Flow Rate 2 01/10/25 02:29 FiO2 25 12/21/24 09:57 Oxygen Flow Rate 2 12/18/24 04:35 BMI result Body Mass Index 19.6 Appearing in no acute distress lung sounds are clear to auscultation heart regular rate rhythm, clear S1, S2 positive bowel sounds, abdomen is soft, nontender neuro patient is alert x3, no focal deficits Objective Data Active Medications Acetaminophen (Acetaminophen 325 Mg Tablet) 975 mg PO Q6H PRN PRN Reason: Headache/Pain, Scale 1-10 Last Admin: 01/10/25 05:43 Dose: 975 mg Documented By: HARJINDER Acetaminophen (Acetaminophen Supp 650 Mg Supp.Rect) 650 mg NM Q4H PRN PRN Reason: Pain, Mild 1-3,fever,headache Last Admin: 01/09/25 21:09 Dose: 650 mg Documented By: HARJINDER Carvedilol (Carvedilol 12.5 Mg Tablet) 12.5 mg PO BID ANNA MARIE; Protocol Last Admin: 01/14/25 08:03 Dose: 12.5 mg Documented By: SOLEDAD Cefazolin Sodium (Cefazolin Sodium 1 Gm Vial) 1 gm IVPUSH Q24H ANNA MARIE Last Admin: 01/13/25 21:15 Dose: 1 gm Documented By: SISSY Collagenase (Collagenase Clostridium Hist. 30 Gm Tube) 1 appl TOPICAL BID ANNA MARIE; Protocol Last Admin: 01/14/25 08:04 Dose: 1 appl Documented By: SOLEDAD Heparin Sodium (Porcine) (Heparin Sodium,Porcine 5,000 Unit/Ml Vial) 5,000 unit SUBCUT Q12H [facility] Last Admin: 01/14/25 08:02 Dose: 5,000 unit Documented By: SOLEDAD Levetiracetam (Levetiracetam 500 Mg Tablet) 500 mg PO BID [facility] Last Admin: 01/14/25 08:03 Dose: 500 mg Documented By: SOLEDAD Melatonin (Melatonin 3 Mg Tablet) 6 mg PO BEDTIME PRN PRN Reason: sleep Last Admin: 01/13/25 21:15 Dose: 6 mg Documented By: SISSY Methadone HCl (Methadone Hcl 20 Mg/2 Ml Oral.Conc) 50 mg PO DAILY@0800 [facility] Last Admin: 01/14/25 08:04 Dose: 50 mg Documented By: SOLEDAD Co-signed By: RIA Omeprazole (Omeprazole 20 Mg Capsule.) 20 mg PO DAILY@0630 [facility] Last Admin: 01/14/25 06:04 Dose: 20 mg Documented By: SISSY Sevelamer Carbonate (Sevelamer Carbonate Tablet 800 Mg Tablet) 800 mg PO TIDWM [facility] Last Admin: 01/14/25 13:46 Dose: 800 mg Documented By: SOLEDAD Sodium Zirconium Cyclosilicate (Sodium Zirconium Cyclosilicate 10 Gm Powd.Pack) 10 gm PO SUTUTHSA [facility] Last Admin: 01/14/25 13:43 Dose: Not Given Documented By: SOLEDAD Non-Admin Reason: Physician Held Med Vancomycin HCl (Vancomycin Hcl 125 Mg Capsule) 125 mg PO QID [facility] Last Admin: 01/14/25 13:46 Dose: 125 mg Documented By: SOLEDAD Labs 01/12/25 10:06 01/13/25 09:01 Microbiology Microbiology Results: Microbiology 01/11/25 14:54 Blood Culture - Preliminary Blood - Venous No growth after 48 hours. 01/11/25 14:23 Blood Culture - Preliminary Blood - Venous No growth after 48 hours. Assessment and Plan (1) Acute encephalopathy: Status: Acute (2) ESRD (end stage renal disease): Status: Acute Plan 49 year old female with history of ESRD on hemodialysis Thursday/Thursday/Thursday with history of noncompliance, seizure disorder, anemia of chronic kidney disease, polysubstance IV drug use disorder on methadone who was recently admitted for hypertensive urgency and VRE bacteremia d/c with 28 days of linezolid on 12/03 who was brought to the emergency department on December 18 with altered mental status after being found unresponsive with concern for status epilepticus intubated in the emergency room and admitted to the ICU, downgraded to the medical floor on 12/23 Sepsis due to Staph aureus bacteremia 2/2 blood cultures growing MSSA CXR neg for PNA. cdiff neg echo ordered with no obvious vegetation seen by ID, possible skin source, Switch to cefazolin recommend 4 weeks IV Surveillance blood cultures negative to date Start oral vancomycin for C diff prophylaxis for duration of antibiotics +1 week (recent cdif infection) Acute toxic\metabolic encephalopathy Due to in hospital delirium, anoxic injury EEG, No evidence of seizure disorder. Frequent reorientation and redirection discussed results of brain MRI with neuro - likely anoxic injury, if pt has improvement will likely take up to a year and will probably be incomplete HCP invoked Hypertensive urgency BP fluctuating, was very high, then very low. Continued on Coreg hydralazine, clonidine and Nifedipine stopped Physical deconditioning Awaiting Rehab placement Lethargy. Resolved Increase physical activity as tolerated ESRD on hemodialysis-[facility] following Permacath replaced by IR 01/03 Hyperkalemia ESRD HD on [facility] changed to non-dialysis days only due Seizure disorder [facility] Polysubstance use disorder Addiction Team following Methadone Recent bacteremia with VRE Was on PO linezolid for 28 days, completed course Repeated blood cultures 12/28- Final culture no growth right scapula - unstageable pressure injury sacrum DTI poa wound care as per wound care nurse. see note for full recommendations DVT prophylaxis Mechanical devices, Heparin Full code Disposition, awaiting placement Quality Stroke Does the patient have a stroke diagnosis?: No VTE Prior VTE?: No VTE Risk Level:: Medical - moderate - high VTE Device Contraindication: Treatment Not Indicated VTE Drug Contraindication: N/A - Med Ordered
[2025-01-14 16:00] VITALS: BP 112/60; PULSE 77; RESP 20; TEMP 36.2; O2SAT 96
[2025-01-14 17:14] LABS: Anion Gap 24 (12-20); Blood Urea Nitrogen 61 mg/dL (9-16); Calcium 9.8 mg/dL (8.4-10.2); Carbon Dioxide 18 mmol/L (22-29); Chloride 101 mmol/L (96-108); Creatinine Clr Calc Pharmacy 7.8; Estimated Glomerular Filt Rate 7; Glucose Random 91 mg/dL (60-115); Potassium 5.5 mmol/L (3.3-5.1); Sodium 137 mmol/L (135-145)
[2025-01-14 19:13] VITALS: BP 104/67; PULSE 82; RESP 18; TEMP 36.3; O2SAT 97
[2025-01-14 21:44] VITALS: BP 104/67; PULSE 82
[2025-01-14] MEDS: ceFAZolin Sodium 1 GM VIAL IVPUSH (21:44)
[2025-01-14] MEDS: Melatonin 3 MG TABLET 6 MG PO (21:45)
[2025-01-15 03:14] VITALS: BP 109/63; PULSE 70; RESP 18; TEMP 36.3; O2SAT 94
[2025-01-15 05:25] VITALS: BMI 19.8
[2025-01-15] MEDS: Omeprazole 20 MG CAPSULE.DR PO (05:34)
[2025-01-15 07:07] LABS: Creatinine Clr Calc Pharmacy 6.7; Estimated Glomerular Filt Rate 6
[2025-01-15 07:52] VITALS: BP 111/61; PULSE 70; RESP 16; TEMP 36.6; O2SAT 94
[2025-01-15] MEDS: methADONE HCl 20 MG/2 ML ORAL.CONC 50 MG PO (08:42)
[2025-01-15] MEDS: carvediloL 12.5 MG TABLET PO ×2 (08:43→22:09)
[2025-01-15] MEDS: vancomycin HCL 125 MG CAPSULE PO ×4 (08:43→22:09)
[2025-01-15] MEDS: Sevelamer Carbonate Tablet 800 MG TABLET PO ×3 (08:43→17:13)
[2025-01-15] MEDS: levETIRAcetam 500 MG TABLET PO ×2 (08:43→22:09)
[2025-01-15] MEDS: Collagenase Clostridium Hist. 30 GM TUBE 1 APPL TOPICAL ×2 (08:49→22:10)
--- NOTE | 2025-01-15 11:11 | P.PNIM_ITS ---
Subjective Subjective Date of Service: 01/15/25 Interval History: seen and examined this morning follow up for bacteremia, encephalopathy Review of Systems Review of Systems: Yes all other systems are reviewed and are negative Constitutional Constitutional: Denies chills and Denies fever(s) Cardiovascular Cardiovascular: Denies chest pain, Denies palpitations and Denies dyspnea Respiratory Respiratory: Denies cough and Denies dyspnea Gastrointestinal Gastrointestinal: Denies abdominal pain Endocrine Endocrine: Denies palpitations Physical Exam 2 Vital Signs: Vital Signs: Last Vital Signs Temp 97.9 F 01/15/25 07:52 Pulse 70 01/15/25 07:52 Resp 16 01/15/25 07:52 BP 111/61 01/15/25 07:52 Pulse Ox 94 01/15/25 07:52 O2 Del Method Room Air 01/15/25 07:52 O2 Flow Rate 2 01/10/25 02:29 FiO2 25 12/21/24 09:57 Oxygen Flow Rate 2 12/18/24 04:35 BMI result Body Mass Index 19.8 Appearing in no acute distress lung sounds are clear to auscultation heart regular rate rhythm, clear S1, S2 positive bowel sounds, abdomen is soft, nontender neuro patient is alert x3, no focal deficits Objective Data Active Medications Acetaminophen (Acetaminophen 325 Mg Tablet) 975 mg PO Q6H PRN PRN Reason: Headache/Pain, Scale 1-10 Last Admin: 01/10/25 05:43 Dose: 975 mg Documented By: HARJINDER Acetaminophen (Acetaminophen Supp 650 Mg Supp.Rect) 650 mg [place] Q4H PRN PRN Reason: Pain, Mild 1-3,fever,headache Last Admin: 01/09/25 21:09 Dose: 650 mg Documented By: HARJINDER Carvedilol (Carvedilol 12.5 Mg Tablet) 12.5 mg PO BID ANNA MARIE; Protocol Last Admin: 01/15/25 08:43 Dose: 12.5 mg Documented By: ALEC Cefazolin Sodium (Cefazolin Sodium 1 Gm Vial) 1 gm IVPUSH Q24H [facility] Last Admin: 01/14/25 21:44 Dose: 1 gm Documented By: SISSY Collagenase (Collagenase Clostridium Hist. 30 Gm Tube) 1 appl TOPICAL BID ANNA MARIE; Protocol Last Admin: 01/15/25 08:49 Dose: 1 appl Documented By: ALEC Heparin Sodium (Porcine) (Heparin Sodium,Porcine 5,000 Unit/Ml Vial) 5,000 unit SUBCUT Q12H [facility] Last Admin: 01/15/25 10:47 Dose: Not Given Documented By: ALEC Non-Admin Reason: Patient Refused Levetiracetam (Levetiracetam 500 Mg Tablet) 500 mg PO BID [facility] Last Admin: 01/15/25 08:43 Dose: 500 mg Documented By: ALEC Melatonin (Melatonin 3 Mg Tablet) 6 mg PO BEDTIME PRN PRN Reason: sleep Last Admin: 01/14/25 21:45 Dose: 6 mg Documented By: SISSY Methadone HCl (Methadone Hcl 20 Mg/2 Ml Oral.Conc) 50 mg PO DAILY@0800 [facility] Last Admin: 01/15/25 08:42 Dose: 50 mg Documented By: ALEC Co-signed By: VANNESA Omeprazole (Omeprazole 20 Mg Capsule.) 20 mg PO DAILY@0630 [facility] Last Admin: 01/15/25 05:34 Dose: 20 mg Documented By: GRIS Sevelamer Carbonate (Sevelamer Carbonate Tablet 800 Mg Tablet) 800 mg PO TIDWM [facility] Last Admin: 01/15/25 08:43 Dose: 800 mg Documented By: ALEC Sodium Zirconium Cyclosilicate (Sodium Zirconium Cyclosilicate 10 Gm Powd.Pack) 10 gm PO SUTUTHSA [facility] Last Admin: 01/14/25 13:43 Dose: Not Given Documented By: SOLEDAD Non-Admin Reason: Physician Held Med Vancomycin HCl (Vancomycin Hcl 125 Mg Capsule) 125 mg PO QID [facility] Last Admin: 01/15/25 08:43 Dose: 125 mg Documented By: ALEC Labs 01/12/25 10:06 01/15/25 05:48 Labs: Laboratory Results - last 24 hr 01/14/25 01/15/25 16:41 05:48 Hold Purple Top SEE NOTE Anion Gap 24 H Estim Creat Clear Calc 7.8 6.7 Estimated GFR 7 6 Random Glucose 91 Calcium 9.8 Assessment and Plan (1) Acute encephalopathy: Status: Acute (2) ESRD (end stage renal disease): Status: Acute Plan 49 year old female with history of ESRD on hemodialysis Thursday/Thursday/Thursday with history of noncompliance, seizure disorder, anemia of chronic kidney disease, polysubstance IV drug use disorder on methadone who was recently admitted for hypertensive urgency and VRE bacteremia d/c with 28 days of linezolid on 12/03 who was brought to the emergency department on December 18 with altered mental status after being found unresponsive with concern for status epilepticus intubated in the emergency room and admitted to the ICU, downgraded to the medical floor on 12/23 Sepsis due to Staph aureus bacteremia 2/2 blood cultures growing MSSA CXR neg for PNA. cdiff neg echo ordered with no obvious vegetation seen by ID, possible skin source, Switch to cefazolin recommend 4 weeks IV Surveillance blood cultures negative to date Start oral vancomycin for C diff prophylaxis for duration of antibiotics +1 week (recent cdif infection) Acute toxic\metabolic encephalopathy Due to in hospital delirium, anoxic injury EEG, No evidence of seizure disorder. Frequent reorientation and redirection discussed results of brain MRI with neuro - likely anoxic injury, if pt has improvement will likely take up to a year and will probably be incomplete HCP invoked Hypertensive urgency, more stable BP fluctuating, was very high, then very low. Continued on Coreg hydralazine, clonidine and Nifedipine stopped Physical deconditioning Awaiting Rehab placement Lethargy. Resolved Increase physical activity as tolerated ESRD on hemodialysis-[facility] following Permacath replaced by IR 01/03 Hyperkalemia ESRD HD on [facility] changed to non-dialysis days only due Seizure disorder [facility] Polysubstance use disorder Addiction Team following Methadone Recent bacteremia with VRE Was on PO linezolid for 28 days, completed course Repeated blood cultures 12/28- Final culture no growth right scapula - unstageable pressure injury sacrum DTI poa wound care as per wound care nurse. see note for full recommendations DVT prophylaxis Mechanical devices, Heparin Full code Disposition, awaiting placement Quality Stroke Does the patient have a stroke diagnosis?: No VTE Prior VTE?: No VTE Risk Level:: Medical - moderate - high VTE Device Contraindication: Treatment Not Indicated VTE Drug Contraindication: N/A - Med Ordered
[2025-01-15] MEDS: Sodium Zirconium Cyclosilicate 10 GM POWD.PACK PO (11:18)
--- NOTE | 2025-01-15 11:46 | PC.NURSE ---
Pt states she put her ring on the breakfast tray. Breakfast tray was sent to kitchen. Kitchen called by Maeve to see if they found a ring. Question why patient would take off her ring and put it on her breakfast tray?
[2025-01-15 12:24] LABS: Potassium 5.5 mmol/L (3.3-5.1)
--- NOTE | 2025-01-15 14:18 | PC.NURSE ---
Kitchen could not find alleged ring for patient.
[2025-01-15 15:58] VITALS: BP 120/62; PULSE 69; RESP 16; TEMP 37.2; O2SAT 98
[2025-01-15 19:46] VITALS: BP 113/66; PULSE 73; RESP 16; TEMP 36.3; O2SAT 96
[2025-01-15 22:09] VITALS: BP 113/66; PULSE 73
[2025-01-15] MEDS: ceFAZolin Sodium 1 GM VIAL IVPUSH (22:09)
--- NOTE | 2025-01-16 01:35 | PC.NURSE ---
This RN had long conversation with patients sister, Nica Bolanos (HCP). Sister asked many questions, that were answered to the best of my ability. Sister requested to speak to neurologist on patients case.
[2025-01-16 03:33] VITALS: BP 122/67; PULSE 72; RESP 18; TEMP 36.6; O2SAT 95
[2025-01-16] MEDS: Omeprazole 20 MG CAPSULE.DR PO (05:50)
[2025-01-16 07:16] LABS: Creatinine Clr Calc Pharmacy 5.3; Estimated Glomerular Filt Rate 5
--- NOTE | 2025-01-16 09:32 | P.PNNP_ITS ---
Subjective Subjective Date of Service: 01/16/25 Interval history: seen and examined this morning follow up for bacteremia, encephalopathy Physical Exam 2 Vital Signs: Vital Signs: Last Vital Signs Temp 98 F 01/16/25 03:33 Pulse 72 01/16/25 03:33 Resp 18 01/16/25 03:33 BP 122/67 01/16/25 03:33 Pulse Ox 95 01/16/25 03:33 O2 Del Method Room Air 01/16/25 03:33 O2 Flow Rate 2 01/10/25 02:29 FiO2 25 12/21/24 09:57 Oxygen Flow Rate 2 12/18/24 04:35 BMI result Body Mass Index 19.8 cvs: s1s2 Rs; cta Abd; sfot Objective Data Labs 01/12/25 10:06 01/16/25 06:30 Labs: Laboratory Results - last 24 hr 01/15/25 01/16/25 05:48 06:30 Potassium 5.5 H Creatinine 9.18 H* Estim Creat Clear Calc 5.3 Estimated GFR 5 Microbiology Microbiology Results: Microbiology 01/11/25 14:54 Blood - Venous Blood Culture - Preliminary No growth after 48 hours. 01/11/25 14:23 Blood - Venous Blood Culture - Preliminary No growth after 48 hours. 01/08/25 17:19 Blood - Venous Blood Culture - Final Staphylococcus aureus 01/08/25 17:20 Blood - Venous Blood Culture - Final Staphylococcus aureus 12/28/24 12:24 Blood - Venous Blood Culture - Final No growth after 5 days. 12/28/24 11:13 Blood - Venous Blood Culture - Final No growth after 5 days. 12/18/24 08:11 Blood - Venous Blood Culture - Final No growth after 5 days. 12/18/24 08:11 Blood - Venous Blood Culture - Final No growth after 5 days. Procedures Date of Service Date of Service: 01/16/25 Assessment & Plan Assessment and plan (1) ESRD (end stage renal disease): Status: Acute Plan 1. ESRD: [facility] 2. AMS: improving; multifact and w/u as per primary team 3. H/O Severe HTN: BP now running on low side was on clonidine tid, nifedepine 60 bid, coreg 12.5 bid, hydralazine 100mg tid 4. Renal anemia 5. Hemoaccess: s/p new Pcath and worked well REC: hold BP meds for parameters and track BP, presently only on coreg cont HD mwf; card echo if BP remains low will fu cultures for new fever - mssa - on abx for skin source - discussed and will follow w team- planned placement Time Spent With Patient Time: Total time managing care of this patient today ____ minutes. Progress Note: Quality Stroke Does the patient have a stroke diagnosis?: No
--- NOTE | 2025-01-16 09:36 | P.PNIM_ITS ---
Subjective Subjective Date of Service: 01/16/25 Interval History: seen and examined this morning follow up for bacteremia, encephalopathy Review of Systems Review of Systems: Yes all other systems are reviewed and are negative Constitutional Constitutional: Denies chills and Denies fever(s) Cardiovascular Cardiovascular: Denies chest pain, Denies palpitations and Denies dyspnea Respiratory Respiratory: Denies cough and Denies dyspnea Gastrointestinal Gastrointestinal: Denies abdominal pain Endocrine Endocrine: Denies palpitations Physical Exam 2 Vital Signs: Vital Signs: Last Vital Signs Temp 98 F 01/16/25 03:33 Pulse 72 01/16/25 03:33 Resp 18 01/16/25 03:33 BP 122/67 01/16/25 03:33 Pulse Ox 95 01/16/25 03:33 O2 Del Method Room Air 01/16/25 03:33 O2 Flow Rate 2 01/10/25 02:29 FiO2 25 12/21/24 09:57 Oxygen Flow Rate 2 12/18/24 04:35 BMI result Body Mass Index 19.8 Objective Data Active Medications Acetaminophen (Acetaminophen 325 Mg Tablet) 975 mg PO Q6H PRN PRN Reason: Headache/Pain, Scale 1-10 Last Admin: 01/10/25 05:43 Dose: 975 mg Documented By: HARJINDER Acetaminophen (Acetaminophen Supp 650 Mg Supp.Rect) 650 mg [place] Q4H PRN PRN Reason: Pain, Mild 1-3,fever,headache Last Admin: 01/09/25 21:09 Dose: 650 mg Documented By: HARJINDER Carvedilol (Carvedilol 12.5 Mg Tablet) 12.5 mg PO BID [facility]; Protocol Last Admin: 01/15/25 22:09 Dose: 12.5 mg Documented By: GABO Cefazolin Sodium (Cefazolin Sodium 1 Gm Vial) 1 gm IVPUSH Q24H [facility] Last Admin: 01/15/25 22:09 Dose: 1 gm Documented By: GABO Collagenase (Collagenase Clostridium Hist. 30 Gm Tube) 1 appl TOPICAL BID ANNA MARIE; Protocol Last Admin: 01/15/25 22:10 Dose: 1 appl Documented By: GABO Diphenhydramine HCl (Diphenhydramine Hcl 25 Mg Capsule) 12.5 mg PO DAILY PRN PRN Reason: ITCHINESS Heparin Sodium (Porcine) (Heparin Sodium,Porcine 5,000 Unit/Ml Vial) 5,000 unit SUBCUT Q12H [facility] Last Admin: 01/15/25 22:15 Dose: Not Given Documented By: GABO Non-Admin Reason: Patient Refused Levetiracetam (Levetiracetam 500 Mg Tablet) 500 mg PO BID [facility] Last Admin: 01/15/25 22:09 Dose: 500 mg Documented By: GABO Melatonin (Melatonin 3 Mg Tablet) 6 mg PO BEDTIME PRN PRN Reason: sleep Last Admin: 01/14/25 21:45 Dose: 6 mg Documented By: SISSY Methadone HCl (Methadone Hcl 20 Mg/2 Ml Oral.Conc) 50 mg PO DAILY@0800 [facility] Last Admin: 01/15/25 08:42 Dose: 50 mg Documented By: ALEC Co-signed By: VANNESA Omeprazole (Omeprazole 20 Mg Capsule.Dr) 20 mg PO DAILY@0630 [facility] Last Admin: 01/16/25 05:50 Dose: 20 mg Documented By: GABO Sevelamer Carbonate (Sevelamer Carbonate Tablet 800 Mg Tablet) 800 mg PO TIDWM [facility] Last Admin: 01/15/25 17:13 Dose: 800 mg Documented By: HUMPHREY Sodium Zirconium Cyclosilicate (Sodium Zirconium Cyclosilicate 10 Gm Powd.Pack) 10 gm PO SUTUTHSA [facility] Last Admin: 01/15/25 11:18 Dose: 10 gm Documented By: ALEC Vancomycin HCl (Vancomycin Hcl 125 Mg Capsule) 125 mg PO QID [facility] Last Admin: 01/15/25 22:09 Dose: 125 mg Documented By: GABO Labs 01/12/25 10:06 01/16/25 06:30 Labs: Laboratory Results - last 24 hr 01/16/25 06:30 Estim Creat Clear Calc 5.3 Estimated GFR 5 Assessment and Plan (1) Acute encephalopathy: Status: Acute (2) ESRD (end stage renal disease): Status: Acute Plan 49 year old female with history of ESRD on hemodialysis Thursday/Thursday/Thursday with history of noncompliance, seizure disorder, anemia of chronic kidney disease, polysubstance IV drug use disorder on methadone who was recently admitted for hypertensive urgency and VRE bacteremia d/c with 28 days of linezolid on 12/03 who was brought to the emergency department on December 18 with altered mental status after being found unresponsive with concern for status epilepticus intubated in the emergency room and admitted to the ICU, downgraded to the medical floor on 12/23 Sepsis due to Staph aureus bacteremia 2/2 blood cultures growing MSSA CXR neg for PNA. cdiff neg echo ordered with no obvious vegetation seen by ID, possible skin source, Switch to cefazolin recommend 4 weeks IV Surveillance blood cultures negative to date Start oral vancomycin for C diff prophylaxis for duration of antibiotics +1 week (recent cdif infection) Acute toxic\metabolic encephalopathy Due to in hospital delirium, anoxic injury EEG, No evidence of seizure disorder. Frequent reorientation and redirection discussed results of brain MRI with neuro - likely anoxic injury, if pt has improvement will likely take up to a year and will probably be incomplete HCP invoked Hypertensive urgency, more stable BP fluctuating, was very high, then very low. Continued on Coreg hydralazine, clonidine and Nifedipine stopped Physical deconditioning Awaiting Rehab placement Lethargy. Resolved Increase physical activity as tolerated ESRD on hemodialysis-[facility] following Permacath replaced by IR 01/03 Hyperkalemia ESRD HD on [facility] changed to non-dialysis days only due [facility] Polysubstance use disorder Addiction Team following Methadone Recent bacteremia with VRE Was on PO linezolid for 28 days, completed course Repeated blood cultures 12/28- Final culture no growth right scapula - unstageable pressure injury sacrum DTI poa wound care as per wound care nurse. see note for full recommendations DVT prophylaxis Mechanical devices, Heparin Full code Disposition, awaiting placement Quality Stroke Does the patient have a stroke diagnosis?: No VTE Prior VTE?: No VTE Risk Level:: Medical - moderate - high VTE Device Contraindication: Treatment Not Indicated VTE Drug Contraindication: N/A - Med Ordered
[2025-01-16 11:04] VITALS: BP 125/78; PULSE 80; RESP 16; TEMP 36.8; O2SAT 99
[2025-01-16] MEDS: Sevelamer Carbonate Tablet 800 MG TABLET PO ×2 (11:04→17:15)
[2025-01-16] MEDS: carvediloL 12.5 MG TABLET PO ×2 (11:05→20:36)
[2025-01-16] MEDS: levETIRAcetam 500 MG TABLET PO ×2 (11:05→20:35)
[2025-01-16] MEDS: Heparin Sodium,Porcine 5,000 UNIT/ML VIAL 5000 UNIT SUBCUT ×2 (11:06→21:15)
[2025-01-16] MEDS: vancomycin HCL 125 MG CAPSULE PO ×3 (11:06→20:36)
[2025-01-16] MEDS: methADONE HCl 20 MG/2 ML ORAL.CONC 50 MG PO (11:07)
[2025-01-16] MEDS: Collagenase Clostridium Hist. 30 GM TUBE 1 APPL TOPICAL ×2 (11:17→21:12)
--- NOTE | 2025-01-16 11:51 | MHC.CLN ---
F/U WEIGHT=46 KG, BMI=19.8. WEIGHT CONSISTENT WITH ADMISSION WT. WEIGHT FLUCTUATIONS ANTICIPATED DUE TO CHANGES IN FLUID STATUS WITH HD. INTAKE VARIABLE, 0-100%. DIET RX: 2GM NA, LOW POTASSIUM, LOW PHOS RECEIVING ENSURE CLEAR TID TO PROMOTE WOUND HEALING SUPP PROVIDES 720KCALS, 24G PROTEIN (SUPP IS RENAL FRIENDLY-NO K+) CONTINUE TO MONITOR PO INTAKE, WEIGHT AND WOUND HEALING
--- NOTE | 2025-01-16 12:48 | MHC.CM.PN ---
CM FAXED LEVEL 1 TO [facility] ([facility]ARR [phone]) AND CONTACT # PROVIDED FOR ACCEPTING FACILITY LIAISON (ANAYA AT [facility]). CM SPOKE WITH CONTACT AT [facility] ([id number]) WHO IS REQUESTING A PERMANENT ACCESS RECORD AND A NOTE STATING PT IS NOT ON A SITTER. IR NOTIFIED/REQUEST REPORT. CLINICAL SPECIALIST [employer]ICE NOTIFIED OF NEED FOR DOCUMENTATION REGARDING NO SITTER.[id number][phone][facility] WILL SEND WHEN AVAILABLE. [facility] WILL NEED TO SET UP TRANSPORT FOR HD ONCE CHAIR TIME CONFIRMED. CM CONTINUES TO FOLLOW AND ANTICIPATE DC 01/17
--- NOTE | 2025-01-16 15:01 | PC.NURSE ---
Patient had dialysis today, back on the floor, no issues, no sitter in the room.
[2025-01-16 15:45] VITALS: BP 132/75; PULSE 80; RESP 18; TEMP 36.4; O2SAT 96
[2025-01-16 19:35] VITALS: BP 127/74; PULSE 85; RESP 18; TEMP 37.2; O2SAT 96
[2025-01-16] MEDS: ceFAZolin Sodium 1 GM VIAL IVPUSH (20:36)
[2025-01-17 03:24] VITALS: BP 110/55; PULSE 78; RESP 16; TEMP 36.5; O2SAT 99
[2025-01-17] MEDS: Omeprazole 20 MG CAPSULE.DR PO (05:37)
[2025-01-17 07:21] VITALS: BP 117/59; PULSE 77; RESP 16; TEMP 36.6; O2SAT 97
[2025-01-17] MEDS: methADONE HCl 20 MG/2 ML ORAL.CONC 50 MG PO (07:47)
[2025-01-17] MEDS: levETIRAcetam 500 MG TABLET PO ×2 (07:47→20:33)
[2025-01-17] MEDS: Sevelamer Carbonate Tablet 800 MG TABLET PO ×3 (07:47→17:32)
[2025-01-17] MEDS: carvediloL 12.5 MG TABLET PO ×2 (07:47→20:33)
[2025-01-17] MEDS: vancomycin HCL 125 MG CAPSULE PO ×4 (07:48→20:33)
[2025-01-17] MEDS: Heparin Sodium,Porcine 5,000 UNIT/ML VIAL 5000 UNIT SUBCUT ×2 (10:32→20:33)
[2025-01-17] MEDS: Collagenase Clostridium Hist. 30 GM TUBE 1 APPL TOPICAL ×2 (10:33→20:42)
--- NOTE | 2025-01-17 11:21 | P.PNNE_ITS ---
Subjective Subjective Date of Service: 01/17/25 Interval History: altered mental status Critical Care Time (minutes): 0 Comment: Multifactorial encephalopathy from metabolic , hypoxic and infectious etiology. MRI shows non specific mild to modertae white matter chnages. EEG shows diffuse slowing Physical Exam 2 Vital Signs: Vital Signs: Last Vital Signs Temp 97.9 F 01/17/25 07:21 Pulse 77 01/17/25 07:21 Resp 16 01/17/25 07:21 BP 117/59 L 01/17/25 07:21 Pulse Ox 97 01/17/25 07:21 O2 Del Method Room Air 01/17/25 07:21 O2 Flow Rate 2 01/10/25 02:29 FiO2 25 12/21/24 09:57 Oxygen Flow Rate 2 12/18/24 04:35 BMI result Body Mass Index 19.8 Neuro: Other: arousable , able to follow simple commands. NOn focal exam Objective Data Labs 01/12/25 10:06 01/16/25 06:30 Microbiology Microbiology Results: Microbiology 01/11/25 14:54 Blood - Venous Blood Culture - Final No growth after 5 days. 01/11/25 14:23 Blood - Venous Blood Culture - Final No growth after 5 days. 01/08/25 17:19 Blood - Venous Blood Culture - Final Staphylococcus aureus 01/08/25 17:20 Blood - Venous Blood Culture - Final Staphylococcus aureus 12/28/24 12:24 Blood - Venous Blood Culture - Final No growth after 5 days. 12/28/24 11:13 Blood - Venous Blood Culture - Final No growth after 5 days. 12/18/24 08:11 Blood - Venous Blood Culture - Final No growth after 5 days. 12/18/24 08:11 Blood - Venous Blood Culture - Final No growth after 5 days. Progress Note: A&P Assessment and plan (1) Acute encephalopathy: Status: Acute Assessment and Plan: Multifactorial encephalopathy from metabolic , hypoxic and infectious etiology. No clinical or EEG evidence of Sz MRI shows non specific mild to modertae white matter chnages. EEG shows diffuse slowing Plan Can be discharged on Keppra 750mg bid Time Spent With Patient Time: Total time managing care of this patient today ____ minutes. Procedures Date of Service Date of Service: 01/17/25 Quality Stroke Does the patient have a stroke diagnosis?: No VTE Prior VTE?: No VTE Risk Level:: Medical - moderate - high VTE Device Contraindication: Treatment Not Indicated VTE Drug Contraindication: N/A - Med Ordered
[2025-01-17] MEDS: Sodium Zirconium Cyclosilicate 10 GM POWD.PACK PO (12:28)
--- NOTE | 2025-01-17 12:45 | P.PNIM_ITS ---
Subjective Subjective Date of Service: 01/17/25 Interval History: seen and examined this morning follow up for bacteremia, encephalopathy Review of Systems Review of Systems: Yes all other systems are reviewed and are negative Constitutional Constitutional: Denies chills and Denies fever(s) Cardiovascular Cardiovascular: Denies chest pain, Denies palpitations and Denies dyspnea Respiratory Respiratory: Denies cough and Denies dyspnea Gastrointestinal Gastrointestinal: Denies abdominal pain Endocrine Endocrine: Denies palpitations Physical Exam 2 Vital Signs: Vital Signs: Last Vital Signs Temp 97.9 F 01/17/25 07:21 Pulse 77 01/17/25 07:21 Resp 16 01/17/25 07:21 BP 117/59 L 01/17/25 07:21 Pulse Ox 97 01/17/25 07:21 O2 Del Method Room Air 01/17/25 07:21 O2 Flow Rate 2 01/10/25 02:29 FiO2 25 12/21/24 09:57 Oxygen Flow Rate 2 12/18/24 04:35 BMI result Body Mass Index 19.8 Appearing in no acute distress lung sounds are clear to auscultation heart regular rate rhythm, clear S1, S2 positive bowel sounds, abdomen is soft, nontender neuro patient is alert x3, no focal deficits Objective Data Active Medications Acetaminophen (Acetaminophen 325 Mg Tablet) 975 mg PO Q6H PRN PRN Reason: Headache/Pain, Scale 1-10 Last Admin: 01/10/25 05:43 Dose: 975 mg Documented By: HARJINDER Acetaminophen (Acetaminophen Supp 650 Mg Supp.Rect) 650 mg LA Q4H PRN PRN Reason: Pain, Mild 1-3,fever,headache Last Admin: 01/09/25 21:09 Dose: 650 mg Documented By: HARJINDER Carvedilol (Carvedilol 12.5 Mg Tablet) 12.5 mg PO BID ANNA MARIE; Protocol Last Admin: 01/17/25 07:47 Dose: 12.5 mg Documented By: SHAN Cefazolin Sodium (Cefazolin Sodium 1 Gm Vial) 1 gm IVPUSH Q24H ANNA MARIE Last Admin: 01/16/25 20:36 Dose: 1 gm Documented By: EVERETT Collagenase (Collagenase Clostridium Hist. 30 Gm Tube) 1 appl TOPICAL BID ANNA MARIE; Protocol Last Admin: 01/17/25 10:33 Dose: 1 appl Documented By: SHAN Diphenhydramine HCl (Diphenhydramine Hcl 25 Mg Capsule) 12.5 mg PO DAILY PRN PRN Reason: ITCHINESS Heparin Sodium (Porcine) (Heparin Sodium,Porcine 5,000 Unit/Ml Vial) 5,000 unit SUBCUT Q12H [facility] Last Admin: 01/17/25 10:32 Dose: 5,000 unit Documented By: SHAN Levetiracetam (Levetiracetam 500 Mg Tablet) 500 mg PO BID [facility] Last Admin: 01/17/25 07:47 Dose: 500 mg Documented By: SHAN Melatonin (Melatonin 3 Mg Tablet) 6 mg PO BEDTIME PRN PRN Reason: sleep Last Admin: 01/14/25 21:45 Dose: 6 mg Documented By: SISSY Methadone HCl (Methadone Hcl 20 Mg/2 Ml Oral.Conc) 50 mg PO DAILY@0800 [facility] Last Admin: 01/17/25 07:47 Dose: 50 mg Documented By: SHAN Co-signed By: VAMSHI Omeprazole (Omeprazole 20 Mg Capsule.) 20 mg PO DAILY@0630 [facility] Last Admin: 01/17/25 05:37 Dose: 20 mg Documented By: ODRISBranden Sevelamer Carbonate (Sevelamer Carbonate Tablet 800 Mg Tablet) 800 mg PO TIDWM [facility] Last Admin: 01/17/25 12:26 Dose: 800 mg Documented By: SHAN Sodium Zirconium Cyclosilicate (Sodium Zirconium Cyclosilicate 10 Gm Powd.Pack) 10 gm PO SUTUTHSA [facility] Last Admin: 01/17/25 12:28 Dose: 10 gm Documented By: SHAN Vancomycin HCl (Vancomycin Hcl 125 Mg Capsule) 125 mg PO QID [facility] Last Admin: 01/17/25 12:27 Dose: 125 mg Documented By: SHAN Labs 01/12/25 10:06 01/16/25 06:30 Microbiology Microbiology Results: Microbiology 01/11/25 14:54 Blood Culture - Final Blood - Venous No growth after 5 days. 01/11/25 14:23 Blood Culture - Final Blood - Venous No growth after 5 days. Assessment and Plan (1) Acute encephalopathy: Status: Acute (2) ESRD (end stage renal disease): Status: Acute Plan 49 year old female with history of ESRD on hemodialysis Thursday/Thursday/Thursday with history of noncompliance, seizure disorder, anemia of chronic kidney disease, polysubstance IV drug use disorder on methadone who was recently admitted for hypertensive urgency and VRE bacteremia d/c with 28 days of linezolid on 12/03 who was brought to the emergency department on December 18 with altered mental status after being found unresponsive with concern for status epilepticus intubated in the emergency room and admitted to the ICU, downgraded to the medical floor on 12/23 Sepsis due to Staph aureus bacteremia. Sepsis resolved 2/2 blood cultures growing MSSA CXR neg for PNA. cdiff neg echo with no obvious vegetation seen by ID, possible skin source, Switch to cefazolin recommend 4 weeks IV Surveillance blood cultures negative to date oral vancomycin for C diff prophylaxis for duration of antibiotics +1 week (recent cdif infection) Acute toxic\metabolic encephalopathy Due to in hospital delirium EEG, No evidence of seizure disorder. Frequent reorientation and redirection discussed results of brain MRI with neuro>likely anoxic injury, if pt has improvement will likely take up to a year and will probably be incomplete HCP invoked Psych consultation pending Hypertensive urgency, more stable BP fluctuating, was very high, then very low. Continued on Coreg hydralazine, clonidine and Nifedipine stopped Physical deconditioning Awaiting Rehab placement Lethargy. Resolved Increase physical activity as tolerated [facility] by IR 01/03 Hyperkalemia ESRD HD on [facility] changed to non-dialysis days only due Seizure disorder no seizures during hospital admission Chris Polysubstance use disorder Addiction Team following Methadone Recent bacteremia with VRE Was on PO linezolid for 28 days, completed course Repeated blood cultures 12/28- Final culture no growth right scapula - unstageable pressure injury sacrum DTI poa wound care as per wound care nurse. see note for full recommendations DVT prophylaxis Mechanical devices, Heparin Full code Disposition, awaiting placement Quality Stroke Does the patient have a stroke diagnosis?: No VTE Prior VTE?: No VTE Risk Level:: Medical - moderate - high VTE Device Contraindication: Treatment Not Indicated VTE Drug Contraindication: N/A - Med Ordered
--- NOTE | 2025-01-17 12:50 | PM.DS ---
DS: Providers Provider Date of Service: 01/18/25 <Orlando Gonzalez MD - Last Filed: 01/18/25 11:48> Date of admission: 12/18/24 09:44 <Twyla Dominguez NP - Last Filed: 01/17/25 12:57> Date of discharge: 01/18/25 <Orlando Gonzalez MD - Last Filed: 01/18/25 11:48> Primary care physician: None Physician <Twyla Dominguez NP - Last Filed: 01/17/25 12:57> Consults: 12/18/24 11:11 Consult to Nephrology Stat Consulting Provider: [facility] Reason for consultation: ESRD on hemodialysis Has provider been notified: No 12/18/24 11:27 Addiction Medicine Provider Routine Consulting Provider: Addiction Covering Reason for consultation: opiate use disorder Has provider been notified: Yes 12/23/24 09:36 Inpt - Recovery Team Routine Comment: Reason for consultation: ARETHA/BH eval 12/27/24 12:57 Consult to Neurology Routine Consulting Provider: Neurology Ellie Reason for consultation: Cognitive def post ICU stay and intubation. 12/29/24 11:05 Consult to Wound Care Routine Reason for consultation: questioning pi to R shoulder and coccyx 01/09/25 07:55 Consult to Infectious Diseases [place]ine [place]ing [place] [facility] [place] [facility] Reason for consultation: GPC bacteremia, ? line infection 01/13/25 10:55 Consult to Neurology Routine Consulting Provider: Neurology Ellie Reason for consultation: follow up MRI results Has provider been notified: No 01/15/25 12:07 Addiction Medicine Provider Routine Consulting Provider: Addiction Covering Reason for consultation: weaning methadone 01/15/25 22:46 Consult to Wound Care Routine Reason for consultation: Pressure injuries to R shoulder & coccyx 01/17/25 07:29 Consult to Neurology Routine Consulting Provider: Neurology Ellie Reason for consultation: re-evlauate for continued encephalopathy 01/17/25 07:32 Consult to Psychiatry Routine Consulting [place] [facility] [place] Reason for consultation: continued encephalopathy despite medical intervention <Twyla Dominguez NP - Last Filed: 01/17/25 12:57> DS: Diagnosis Discharge Diagnosis (1) Acute encephalopathy: Status: Acute <Twyla Dominguez NP - Last Filed: 01/17/25 12:57> (2) ESRD (end stage renal disease): Status: Acute <Twyla Dominguez ADMINISTRATIVE ASSISTANT DATA ENTRY - Last Filed: 01/17/25 12:57> (3) Cognitive and behavioral changes: Status: Acute <Twyla Dominguez ADMINISTRATIVE ASSISTANT DATA ENTRY - Last Filed: 01/17/25 12:57> (4) Opioid use disorder: Status: Acute <Twyla Dominguez ADMINISTRATIVE ASSISTANT DATA ENTRY - Last Filed: 01/17/25 12:57> (5) Status epilepticus: Status: Acute <Twyla Dominguez ADMINISTRATIVE ASSISTANT DATA ENTRY - Last Filed: 01/17/25 12:57> (6) Acute respiratory failure: Status: Acute <Twyla Dominguez ADMINISTRATIVE ASSISTANT DATA ENTRY - Last Filed: 01/17/25 12:57> (7) Drug abuse: Status: Acute <Twyla Dominguez ADMINISTRATIVE ASSISTANT DATA ENTRY - Last Filed: 01/17/25 12:57> (8) Hypothermia: Status: Acute <Twyla Dominguez ADMINISTRATIVE ASSISTANT DATA ENTRY - Last Filed: 01/17/25 12:57> (9) Hypertensive crisis: Status: Acute <Twyla Dominguez ADMINISTRATIVE ASSISTANT DATA ENTRY - Last Filed: 01/17/25 12:57> (10) Positive blood culture: Status: Acute <Twyla Dominguez ADMINISTRATIVE ASSISTANT DATA ENTRY - Last Filed: 01/17/25 12:57> (11) Acute hyperkalemia: Status: Acute <Twyla Dominguez ADMINISTRATIVE ASSISTANT DATA ENTRY - Last Filed: 01/17/25 12:57> (12) Encephalopathy, hypertensive: Status: Acute <Twyla Dominguez ADMINISTRATIVE ASSISTANT DATA ENTRY - Last Filed: 01/17/25 12:57> (13) MSSA bacteremia: Status: Acute <Twyla Dominguez ADMINISTRATIVE ASSISTANT DATA ENTRY - Last Filed: 01/17/25 12:57> (14) Sepsis: Status: Acute <Twyla Dominguez ADMINISTRATIVE ASSISTANT DATA ENTRY - Last Filed: 01/17/25 12:57> DS: Summary Hospital Course Hospital Course: The patient had prolonged hospital stay. for full details please return to EMR. ER provider assessment. 49-year-old female with a history of end-stage renal disease on hemodialysis MWF, chronic hyperkalemia on lokelma, substance use disorder on methadone with current IV drug abuse, polysubstance use disorder, bacteremia with VRE, C diff colitis he was brought to emergency department by ambulance for evaluation of altered mental status. The information came from EMS who obtained this information from the patient's roommate. Patient's last well-known time was 20:00 hours last night. Patient was found by her roommate unresponsive with dried blood on her face. EMS felt that the patient was seizing and gave 2 mg of intranasal Versed without any response. On presentation to the emergency department the patient appeared to have fine tonic-clonic movements of her upper and lower extremities, her jaw was clenched tight, her pupils were 4 mm and reactive, she was not responding to painful stimuli. Patient did have dried blood in her mouth and on her lips. History and physical as per admitting provider. 49-year-old lady with underlying ESRD on hemodialysis, substance abuse on methadone, prior bacteremia with VRE, C diff, admitted after patient was brought in for evaluation of alteration of mental status with suspicion for seizure. Intubated in the emergency room for airway protection for ICU admission. Initial CT head with acute findings, tonic-clonic movements abated with benzodiazepines/propofol. initially treated for acute toxic metabolic encephalopathy for question of seizure at home on the day of arrival on 12/18/2024. EEG showed no evidence of seizure, MRI was discussed with Neurology who thought symptoms were more likely related to anoxic injury with possible improvement taking some time. The patient was treated for: # Sepsis due to Staph aureus bacteremia as 2/2 blood cultures growing MSSA. Likely skin source. Dialysis line replaced. Treated with IV Antibiotics with good response as repeat blood cultures from 01/11/25 remained negative. Evaluated by ID who recommended switch to cefazolin recommend 4 weeks IV. Started oral vancomycin for C diff prophylaxis for duration of antibiotics +1 week (recent cdif infection) # Acute toxic\metabolic encephalopathy Due to in hospital delirium, possible anoxic injury as Neurologist evaluated her and mention Multifactorial encephalopathy from metabolic , hypoxic and infectious etiology. No clinical or EEG evidence of Sz MRI shows non specific mild to modertae white matter chnages. EEG shows diffuse slowing. she needs Frequent reorientation and redirection. HCP invoked during hospital stay. Evaluated by psychiatry team who did not think she needs inpatient psych evaluation and suggested possible off-lable memantine\citicoline for cognitive rehab if ok by outpatient providers. # Hypertensive urgency. Stable. Blood pressure had fluctuated during hospitalization to very high and at very low. Hydralazine, clonidine and nifedipine have been stopped for now. She has been continued on Coreg 12,5 mg bid. she might need to restart other medications if BP start to go up; Nifedipine first before Clonidine and Hydralazine. Likely improved as she has been doing dialysis as scheduled while outpatient she used to miss many sessions. # ESRD on hemodialysis-[facility] nephrology has followed during hospitalization. She had a new PermCath replaced by IR on 01/03/2025. She is to continue her sevelamer # Acute Hyperkalemia. Treated with dialysis and Lokelma. # Seizure disorder. No known seizures during hospital stay. EEG checked and was negative for seizure activity. Continue Keppra 500 mg twice daily # Polysubstance use disorder. Followed by addiction team. Continue methadone 50 mg daily # right scapula - unstageable pressure injury, sacrum DTI, poa, wound care as per wound care nurse. full recommendations below: Wound care Recommendations: 1. Turn and Reposition every 2 hours and as needed for patient comfort.? Use pillows or wedges to support off loading positions. 2. Off Load all bony prominences with use of pillows and heel boots if needed.? Apply Preventative foams where needed. ? 3. Monitor for incontinence and moisture control, use barrier creams when needed for prevention and treatment. 4. Provide adequate and supplemental nutrition.? 5. Continue low air loss mattress, if possible . 6. When applicable maintain blood glucose levels per Providers order. Sacrum - Off Load Pressure with Q2 hr turns and use of pillows - Routine cleansing.? Apply skin prep allow to dry.? Cover with foam dressing to aid in off loading and protection from friction. Change every 5 days and PRN. Right Scapula - Off Load Pressure with Q2hr turns and use of pillows. Cleanse with normal saline, pat dry. ?Apply barrier to the immediate valencia wound, apply thick layer of Santyl to entire wound bed, cover with saline moist gauze, cover with dry gauze, ABD pad, change Daily. The patient will likely need less than 30 days of SNF stay. <Twyla Dominguez NP - Last Filed: 01/17/25 12:57> Time Attestation Discharge Coordination Time (in mins): 42 <Orlando Gonzalez MD - Last Filed: 01/18/25 11:48> Quality: Safe Use of Opioids Does Pt have an Active Cancer Diagnosis on the Problem List?: No <Orlando Gonzalez MD - Last Filed: 01/18/25 11:48> Quality: Stroke Does the patient have a stroke diagnosis?: No <Orlando Gonzalez MD - Last Filed: 01/18/25 11:48> Physical Exam Vital Signs: Vital Signs: Last Vital Signs Temp 97.9 F 01/17/25 07:21 Pulse 77 01/17/25 07:21 Resp 16 01/17/25 07:21 BP 117/59 L 01/17/25 07:21 Pulse Ox 97 01/17/25 07:21 O2 Del Method Room Air 01/17/25 07:21 O2 Flow Rate 2 01/10/25 02:29 FiO2 25 12/21/24 09:57 Oxygen Flow Rate 2 12/18/24 04:35 BMI result Body Mass Index 19.8 <Twyla Dominguez NP - Last Filed: 01/17/25 12:57> Const: Other: Constitutional : awake and interactive, frail, not in distress Neck : Normal inspection, Supple Cardiovascular : RRR, no JVP, no lower extremity edema Respiratory : good bilateral air entry, no crackles, wheezes or rhonchi Gastrointestinal: soft, lax, Normal bowel sounds, Non tender Skin : Warm, Dry, bruises , Dialysis cath chest wall covered with dressing, no bleeding or rash Neurological : Alert & oriented to self , easily confused, No focal deficit <Orlando Gonzalez MD - Last Filed: 01/18/25 11:48> DS: Data Data Completed and Pending Completed studies during hospitalization [Text1]: Procedures Insertion of Endotracheal Airway into Trachea, Via Natural or Artificial Opening (09/24/24) Insertion of Infusion Device into Upper Vein, Percutaneous Approach (11/15/24) Performance of Urinary Filtration, Intermittent, Less than 6 Hours Per Day (11/29/24) Respiratory Ventilation, 24-96 Consecutive Hours (09/24/24) Transfusion of Nonautologous Red Blood Cells into Peripheral Vein, Percutaneous Approach (10/25/24) <Twyla Dominguez NP - Last Filed: 01/17/25 12:57> Imaging MRI - head: Radiologist's impression: ITS Impressions Insertion Tunneled Catheter 01/03/25 14:30 IMPRESSION: Exchange of a right IJ approach tunneled hemodialysis catheter PLAN: -The catheter may be used immediately. Electronically signed by: Earnest Sahni MD 01/03/2025 03:44 PM EDT RP Chest X-Ray 01/09/25 11:55 IMPRESSION: 1. No active pulmonary disease. 2. Right central venous catheter remains in good position. Electronically signed by: Vipul Davison MD 01/09/2025 12:31 PM EDT RP <Orlando Gonzalez MD - Last Filed: 01/18/25 11:48> Discharge Plan Discharge Anticipated Discharge Date/Time: 01/18/25 11:24 <Twyla Dominguez NP - Last Filed: 01/17/25 12:57> Patient Disposition: Xfer SNF <Twyla Dominguez NP - Last Filed: 01/17/25 12:57> Discharge Diagnosis: Sepsis secondary to Staph aureus bacteremia Acute toxic metabolic encephalopathy Hypertensive urgency Physical deconditioning End-stage renal disease on dialysis Hyperkalemia <Twyla Dominguez NP - Last Filed: 01/17/25 12:57> Sepsis secondary to Staph aureus bacteremia Acute toxic metabolic encephalopathy Hypertensive urgency Physical deconditioning End-stage renal disease on dialysis Hyperkalemia <Orlando Gonzalez MD - Last Filed: 01/18/25 11:48> [facility] 1 Week Referral Note: SHORT TERM REHAB Physician,None [Primary Care Provider, Medical] - 1 Week <Twyla Dominguez NP - Last Filed: 01/17/25 12:57> Discharge Medications: New cefazolin 1 gram Recon Soln 1 g IVPUSH Q24H Qty: 21 0RF Santyl 250 unit/gram Ointment 1 appl topical BID Qty: 90 0RF Protocol: Apply to: Apply to: right shoulder Continued sevelamer carbonate 800 mg tablet 800 mg PO TIDWM Lokelma 10 gram powder in packet 10 g PO SUTUTHSA clonidine HCl 0.1 mg Tablet 0.1 mg PO BID Qty: 60 0RF hydralazine 25 mg Tablet 75 mg PO TID Qty: 180 0RF Protocol: Hold for SBP< HOLD for SBP < : 90 vancomycin 125 mg Capsule 125 mg PO Q6H Qty: 120 1RF carvedilol 12.5 mg Tablet 12.5 mg PO BID Qty: 60 1RF Protocol: Hold for SBP/HR < HOLD for SBP < : 90 HOLD for HR < : 60 methadone [Methadose] 10 mg/mL Concentrate 50 mg PO DAILY@0800 30 Days Qty: 30 0RF Rx Instructions: Partial Fill upon patient request. levetiracetam [Keppra] 500 mg tablet 500 mg PO BID Qty: 60 3RF nifedipine 30 mg Tablet Extended Release 24hr 60 mg PO DAILY Qty: 90 0RF Protocol: Hold for SBP< HOLD for SBP < : 90 Discontinued linezolid 600 mg tablet 600 mg PO Q12H 28 Days Qty: 56 0RF <Twyla Dominguez NP - Last Filed: 01/17/25 12:57> Discharge Orders: Discharge Order (Routine); Ordered 01/18/25 Ordered By: Orlando Gonzalez <Twyla Dominguez NP - Last Filed: 01/17/25 12:57> Diet: High-protein diet <Twyla Dominguez NP - Last Filed: 01/17/25 12:57> High-protein diet <Orlando Gonzalez MD - Last Filed: 01/18/25 11:48> Activity on Discharge: As tolerated <Twyla Dominguez NP - Last Filed: 01/17/25 12:57> As tolerated <Orlando Gonzalez MD - Last Filed: 01/18/25 11:48> Stand Alone Forms: Patient Portal Discharge page <Twyla Dominguez NP - Last Filed: 01/17/25 12:57> Print Language: Persian <Twyla Dominguez NP - Last Filed: 01/17/25 12:57> Activity Restrictions/Additional Instructions: Topical Wound Care Recommendations: 1. Turn and Reposition every 2 hours and as needed for patient comfort.? Use pillows to support off loading positions. 2. Off Load all bony prominences with use of pillows as needed.? 3. Monitor for incontinence and moisture control, use barrier creams when needed for prevention and treatment. 4. Provide adequate and supplemental nutrition.? Sacrum - Off Load Pressure with Q2 hr turns and use of pillows - Routine cleansing.? Apply skin prep allow to dry.? Cover with foam dressing to aid in off loading and protection from friction. Change every 5 days and PRN. Right Scapula - Off Load Pressure with Q2hr turns and use of pillows. Cleanse with normal saline, pat dry. ?Apply barrier to the immediate valencia wound, apply thick layer of Santyl to entire wound bed, cover with saline moist gauze, cover with dry gauze, ABD pad, change Daily. Perianal - Cleanse with PH balanced wipes, pat dry. Apply Antifungal per providers orders twice daily. <Twyla Dominguez NP - Last Filed: 01/17/25 12:57> Care Plan Goals: Physical therapy continue IV antibiotics Dialysis monitor blood pressure wound care <Twyla Dominguez NP - Last Filed: 01/17/25 12:57> Health Concerns: Sepsis secondary to Staph aureus bacteremia Acute toxic metabolic encephalopathy Hypertensive urgency Physical deconditioning End-stage renal disease on dialysis Hyperkalemia <Twyla Dominguez NP - Last Filed: 01/17/25 12:57> Plan of Treatment: as above <Twyla Dominguez NP - Last Filed: 01/17/25 12:57> Assessment: See discharge summary <Twyla Dominguez NP - Last Filed: 01/17/25 12:57>
--- NOTE | 2025-01-17 13:46 | HO.WOUND ---
Wound Consult: Follow up 49yr old?female admitted to [facility] on 12/18/24 - See progress notes and H&P for detailed history.? Wound consult follow up for Right Posterior Shoulder and Coccyx.? Patient agreeable to assessment and photo documentation.? Wound beds continue to improve overall no new topical interventions needed. However the perianal area is noted for some fungal dermatitis - provider to determine if it is to be ordered prior to d/c. D/c is set for today per nursing. 12/30/24 01/17/25 Right Scapula Etiology: ?Unstageable Pressure Injury Present on Admission Measurements: 0.6cm x 0.6cm x 0.2cm Wound Bed: ?Continues to improve - marbled pink moist tissue with adherent yellow slough Drainage / Odor: yellow drainage small amount no odor Edges: ? well defined [place] wound: red erythema remains blanchable ? No Induration, Fluctuance or Warmth noted Pain: denies Goals of Treatment: ?Continue Santyl for enzymatic debridement 12/30/24 01/17/25 Sacrum Etiology: Resurfacing Pressure Injury ?Present on Admission Measurements: 0.2cm x 0.2cm Wound Bed: dry dark scab in place tissue is blanchable aside from small scab Drainage / Odor: None Edges: ? attached [place] wound: ?[place] tissue with fungal dermatitis noted No Induration, Fluctuance or Warmth noted Pain: denies Goals of Treatment: ?Foam dressing to protect from friction Provider to order anti-fungal topical treatment No new topical orders to pI sites but provider to add antifungal treatment for perianal area. Recommendations: 1. Turn and Reposition every 2 hours and as needed for patient comfort.? Use pillows or wedges to support off loading positions. 2. Off Load all bony prominences with use of pillows and heel boots if needed.? Apply Preventative foams where needed. ? 3. Monitor for incontinence and moisture control, use barrier creams when needed for prevention and treatment. 4. Provide adequate and supplemental nutrition.? 5. Continue low air loss mattress. 6. When applicable maintain blood glucose levels per Providers order. Sacrum - Off Load Pressure with Q2 hr turns and use of pillows - Routine cleansing.? Apply skin prep allow to dry.? Cover with foam dressing to aid in off loading and protection from friction. Change every 5 days and PRN. Right Scapula - Off Load Pressure with Q2hr turns and use of pillows. Cleanse with normal saline, pat dry. ?Apply barrier to the immediate valencia wound, apply thick layer of Santyl to entire wound bed, cover with saline moist gauze, cover with dry gauze, ABD pad, change Daily. Perianal - Cleanse with PH balanced wipes, pat dry. Apply Antifungal per providers orders twice daily. Re-consult wound care Nurse for wound deterioration or wound changes.
--- NOTE | 2025-01-17 13:54 | MHC.CM.PN ---
CM SPOKE WITH LIAISON FROM [facility] WHO HAS NOT YET HAD CONFIRMATION OF GUEST DOSING FROM [facility]. CM SPOKE WITH BIRDIE FROM [facility] WHO STATES SHE HAS NOT RECEIVED THE NECESSARY PAPERWORK FROM PT'S HOME CLINIC TO COMPLETE. THIS CM EMAILED/FAXED GABRIEL AGAIN TO [facility] HOME [facility], [facility]. TRACE FROM [facility] STATES HE FAXED THE PPW TO [facility]. THIS CM UNABLE TO CONFIRM RECEIPT OF THIS HABIT OP NE IS NOW CLOSED FOR THE DAY. CM WILL F/U IN AM CM SPOKE WITH ABDULKADIR AT [facility] WHO WAS ABLE TO CHANGE CHAIR TIME TO M-W-F AT 3:30 PM. ABDULKADIR AWARE THAT PT WILL NOW DC 01/18 AND SOC WILL NOW BE 01/20. [facility] MADE AWARE AND IS WORKING ON TRANSPORTATION (PT-1) THIS CM FAXED LESS THAN 30 DAY ORDER TO ABNER/ARVIND AT [facility] FOR ADMISSION APPROVAL. CONTACT INFORMATION PROVIDED FOR [facility]. [facility] MADE AWARE OF SITUATION/AWAITING PT TO BE SEEN BY NEURO AND PSYCH WELL BEFORE DC. CM WILL CONTINUE TO FOLLOW.
[2025-01-17 15:06] LABS: Creatinine Clr Calc Pharmacy 8.2; Estimated Glomerular Filt Rate 7
--- NOTE | 2025-01-17 15:22 | P.PNADD_ITS ---
Subjective Subjective Date of Service: 01/17/25 Reason For Visit: AMS Interim History: Patient seen in follow up for OUD. Consult requested to evaluate if methadone dose should be decreased. Patient seen in room 361, she is awake, alert, pleasant and engaged in interview. T/w inquired about methadone, to which she responded that yes she is taking it for withdrawal. She is unsure of dose or how long she has been taking it, and states that she does not believe she has been receiving the medication here (chart review shows she has been) She denies any pain or discomfort. There does not appear to be any sedation related to current methadone dose. She is pending placement and chart review shows that HCP has been invoked. Seen by neurology today with note stating Multifactorial encephalopathy from metabolic , hypoxic and infectious etiology . MRI showing mild to moderate white matter changes. T/w spoke with OTP provider about question of dose reduction and patient's current neuro/behavioral status. Review of Systems Constitutional: Reports as per HPI Mental Status Exam Mental Status Exam Patient Appearance: Appropriate Patient Orientation: Person Level of Consciousness: Awake, Appropriate and Alert Patient Behavior: Appropriate and Talkative Affect Description: Calm Speech Pattern: Clear Thought Content: positive for [place] Diagnostics Vital Signs (24Hr): Vital Signs - 24 hr 01/16/25 15:45 01/16/25 19:35 01/17/25 03:24 Temperature 97.6 F 98.9 F 97.7 F Pulse Rate 80 85 78 Respiratory Rate 18 18 16 Blood Pressure 132/75 127/74 110/55 L Pulse Oximetry 96 96 99 Oxygen Delivery Method Room Air Room Air Room Air 01/17/25 07:21 Temperature 97.9 F Pulse Rate 77 Respiratory Rate 16 Blood Pressure 117/59 L Pulse Oximetry 97 Oxygen Delivery Method Room Air BMI result Body Mass Index 19.8 Labs 01/12/25 10:06 01/17/25 14:17 Labs: Laboratory Results - last 48 hr 01/16/25 01/17/25 06:30 14:17 Creatinine 9.18 H* 5.99 H* Estim Creat Clear Calc 5.3 8.2 Estimated GFR 5 7 Imaging Radiology Impressions: ITS Impressions Insertion Tunneled Catheter 01/03/25 14:30 IMPRESSION: Exchange of a right IJ approach tunneled hemodialysis catheter PLAN: -The catheter may be used immediately. Electronically signed by: Earnest Sahni MD 01/03/2025 03:44 PM EDT RP Chest X-Ray 01/09/25 11:55 IMPRESSION: 1. No active pulmonary disease. 2. Right central venous catheter remains in good position. Electronically signed by: Vipul Davison MD 01/09/2025 12:31 PM EDT RP Medications Medications Current Medications Acetaminophen (Acetaminophen 325 Mg Tablet) 975 mg PO Q6H PRN PRN Reason: Headache/Pain, Scale 1-10 Last Admin: 01/10/25 05:43 Dose: 975 mg Acetaminophen (Acetaminophen Supp 650 Mg Supp.Rect) 650 mg [place] Q4H PRN PRN Reason: Pain, Mild 1-3,fever,headache Last Admin: 01/09/25 21:09 Dose: 650 mg Carvedilol (Carvedilol 12.5 Mg Tablet) 12.5 mg PO BID [facility]; Protocol Last Admin: 01/17/25 07:47 Dose: 12.5 mg Cefazolin Sodium (Cefazolin Sodium 1 Gm Vial) 1 gm IVPUSH Q24H [facility] Last Admin: 01/16/25 20:36 Dose: 1 gm Collagenase (Collagenase Clostridium Hist. 30 Gm Tube) 1 appl TOPICAL BID [facility]; Protocol Last Admin: 01/17/25 10:33 Dose: 1 appl Diphenhydramine HCl (Diphenhydramine Hcl 25 Mg Capsule) 12.5 mg PO DAILY PRN PRN Reason: ITCHINESS Heparin Sodium (Porcine) (Heparin Sodium,Porcine 5,000 Unit/Ml Vial) 5,000 unit SUBCUT Q12H [facility] Last Admin: 01/17/25 10:32 Dose: 5,000 unit Levetiracetam (Levetiracetam 500 Mg Tablet) 500 mg PO BID [facility] Last Admin: 01/17/25 07:47 Dose: 500 mg Melatonin (Melatonin 3 Mg Tablet) 6 mg PO BEDTIME PRN PRN Reason: sleep Last Admin: 01/14/25 21:45 Dose: 6 mg Methadone HCl (Methadone Hcl 20 Mg/2 Ml Oral.Conc) 50 mg PO DAILY@0800 [facility] Last Admin: 01/17/25 07:47 Dose: 50 mg Omeprazole (Omeprazole 20 Mg Capsule.Dr) 20 mg PO DAILY@0630 [facility] Last Admin: 01/17/25 05:37 Dose: 20 mg Sevelamer Carbonate (Sevelamer Carbonate Tablet 800 Mg Tablet) 800 mg PO TIDWM [facility] Last Admin: 01/17/25 12:26 Dose: 800 mg Sodium Zirconium Cyclosilicate (Sodium Zirconium Cyclosilicate 10 Gm Powd.Pack) 10 gm PO SUTUTHSA [facility] Last Admin: 01/17/25 12:28 Dose: 10 gm Vancomycin HCl (Vancomycin Hcl 125 Mg Capsule) 125 mg PO QID [facility] Last Admin: 01/17/25 12:27 Dose: 125 mg Allergies Allergies Allergy/AdvReac Type Severity Reaction Status Date / Time No Known Allergies Allergy Verified 12/18/24 04:49 Assessment & Plan Assessment & Plan (1) Opioid use disorder: Status: Acute Code(s): F11.90 - Opioid use, unspecified, uncomplicated Assessment and Plan: * decrease methadone dose by 5mg to 45mg QD. * will check frequently while still here at [facility] to ensure there is not any discomfort from dose reduction. Total time managing care of this patient today _35___ minutes.
[2025-01-17 15:31] VITALS: BP 142/81; PULSE 82; RESP 18; TEMP 36.6; O2SAT 100
[2025-01-17] MEDS: Sodium Zirconium Cyclosilicate 5 GM POWD.PACK PO (18:57)
[2025-01-17 19:05] VITALS: BP 126/79; PULSE 83; RESP 16; TEMP 36.9; O2SAT 97
--- NOTE | 2025-01-17 19:44 | PM.PSYCN ---
History of Present Illness Date of Service: 01/17/25 Chief Complaint: do you see my purse? Reason for Consult: Conitnue encephalopathy despite medical intervention Requesting physician: Twyla Dominguez Discussed with referring provider: Yes Sources of Information: patient interviewed and chart reviewed HPI Narrative: Berenice seen at 1615 on 01/17/25 in her room 49-year-old female with a history of end-stage renal disease on hemodialysis MWF, chronic hyperkalemia on lokelma, substance use disorder on methadone with current IV drug abuse, polysubstance use disorder, bacteremia with VRE, C diff colitis he was brought to emergency department by ambulance for evaluation of altered mental status. She is disoriented, A+Ox2 to (1975) but states she is 40 y.o. She thinks she just moves in to a new room which nursing staff confirms it is not true. She thinks she has been here only for 2 nights and has come home to work during day time and return to hospital at night. She is distracted looking for her purse/wallet, and the dog. She thinks i brought myself in to the hosptial because she felt really sick and got sick from her coworkers. Denies SI/SIB/HI/AVH. Does not appear to be psychotic but demenstrated some memmory issues., distractibility and cognitivie impairment. She is poor histoiran and forgetful. Poor judgment and memory. Consult sent from from medical team to see if patient meets criteral for IPLPC amdission. Past Psychiatric History: Denies inpatient admission hx. Report hx of depression and anxiety. Report taking Wellbutrin and Prozac in the past but not currently Medical Evaluation Reviewed: Yes She is on HD and treatment for other medical problems. Personal & Social History: Report she lives at home with mom, sister. 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 Report she is single, never and has no children. Review of Systems Review of Systems see Medical H+P for more dettail [facility] Medical History Opioid use disorder ESRD (end stage renal disease) Clostridioides difficile diarrhea Traumatic hematoma of left upper arm Seizure Hypertension, uncontrolled Anemia due to chronic kidney disease ESRD (end stage renal disease) on dialysis Medical non-compliance Norovirus Anemia HTN (hypertension) Drug abuse Family History: Report live with mom and sister at home Social History: Per patient: Single, never . No children. 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 Substance History: Denies substance use. Denies alcohol use hx. She confirms she is taking Methadone but not sure the dose and for what reason she is on MAT. Trauma History: Denies. Diagnostics Vital Signs (24Hr): Vital Signs - 24 hr 01/17/25 03:24 01/17/25 07:21 01/17/25 15:31 Temperature 97.7 F 97.9 F 97.9 F Pulse Rate 78 77 82 Respiratory Rate 16 16 18 Blood Pressure 110/55 L 117/59 L 142/81 H Pulse Oximetry 99 97 100 Oxygen Delivery Method Room Air Room Air Room Air 01/17/25 19:05 Temperature 98.5 F Pulse Rate 83 Respiratory Rate 16 Blood Pressure 126/79 Pulse Oximetry 97 Oxygen Delivery Method Room Air BMI result Body Mass Index 19.8 Labs 01/12/25 10:06 01/18/25 05:48 Labs: Laboratory Results - last 48 hr 01/16/25 01/17/25 06:30 14:17 Creatinine 9.18 H* 5.99 H* Estim Creat Clear Calc 5.3 8.2 Estimated GFR 5 7 Imaging Radiology Impressions: ITS Impressions Insertion Tunneled Catheter 01/03/25 14:30 IMPRESSION: Exchange of a right IJ approach tunneled hemodialysis catheter PLAN: -The catheter may be used immediately. Electronically signed by: Earnest Sahni MD 01/03/2025 03:44 PM EDT RP Chest X-Ray 01/09/25 11:55 IMPRESSION: 1. No active pulmonary disease. 2. Right central venous catheter remains in good position. Electronically signed by: Vipul Davison MD 01/09/2025 12:31 PM EDT RP Mental Status Exam Mental Status Exam Patient Appearance: Appropriate (on Hospital attite ) Patient Orientation: Person and Place Level of Consciousness: Awake, Alert and Follows Commands Patient Behavior: Talkative, Hyperactive, Cooperative, Anxious and Good Eye Contact Mood Description: Appropriate and Anxious Affect Description: Constricted and Nervous Patient Cognition Impaired: Yes Ability to Follow Directions: Good Speech Pattern: Clear and Appropriate Memory Description: Remote Impaired, Immediate Impaired and Recent Impaired Hallucinations: None Delusions: Not Present Thought Process: Disoriented and Illogical Thought Content: positive for Disoriented, positive for Circumstantial and positive for Disorganized Depressive Symptoms: Diff. Making Decisions Abnormal Motor Activity Signs and Symptoms: Restlessness Judgement: Poor Medications Medications Current Medications Acetaminophen (Acetaminophen 325 Mg Tablet) 975 mg PO Q6H PRN PRN Reason: Headache/Pain, Scale 1-10 Last Admin: 01/10/25 05:43 Dose: 975 mg Acetaminophen (Acetaminophen Supp 650 Mg Supp.Rect) 650 mg [place] Q4H PRN PRN Reason: Pain, Mild 1-3,fever,headache Last Admin: 01/09/25 21:09 Dose: 650 mg Carvedilol (Carvedilol 12.5 Mg Tablet) 12.5 mg PO BID [facility]; Protocol Last Admin: 01/17/25 07:47 Dose: 12.5 mg Cefazolin Sodium (Cefazolin Sodium 1 Gm Vial) 1 gm IVPUSH Q24H [facility] Last Admin: 01/16/25 20:36 Dose: 1 gm Collagenase (Collagenase Clostridium Hist. 30 Gm Tube) 1 appl TOPICAL BID [facility]; Protocol Last Admin: 01/17/25 10:33 Dose: 1 appl Diphenhydramine HCl (Diphenhydramine Hcl 25 Mg Capsule) 12.5 mg PO DAILY PRN PRN Reason: ITCHINESS Heparin Sodium (Porcine) (Heparin Sodium,Porcine 5,000 Unit/Ml Vial) 5,000 unit SUBCUT Q12H [facility] Last Admin: 01/17/25 10:32 Dose: 5,000 unit Levetiracetam (Levetiracetam 500 Mg Tablet) 500 mg PO BID [facility] Last Admin: 01/17/25 07:47 Dose: 500 mg Melatonin (Melatonin 3 Mg Tablet) 6 mg PO BEDTIME PRN PRN Reason: sleep Last Admin: 01/14/25 21:45 Dose: 6 mg Methadone HCl (Methadone Hcl 20 Mg/2 Ml Oral.Conc) 45 mg PO DAILY@0800 [facility] Omeprazole (Omeprazole 20 Mg Capsule.Dr) 20 mg PO DAILY@0630 [facility] Last Admin: 01/17/25 05:37 Dose: 20 mg Sevelamer Carbonate (Sevelamer Carbonate Tablet 800 Mg Tablet) 800 mg PO TIDWM [facility] Last Admin: 01/17/25 17:32 Dose: 800 mg Sodium Zirconium Cyclosilicate (Sodium Zirconium Cyclosilicate 10 Gm Powd.Pack) 10 gm PO SUTUTHSA [facility] Last Admin: 01/17/25 12:28 Dose: 10 gm Vancomycin HCl (Vancomycin Hcl 125 Mg Capsule) 125 mg PO QID [facility] Last Admin: 01/17/25 17:32 Dose: 125 mg Allergies Allergies Allergy/AdvReac Type Severity Reaction Status Date / Time No Known Allergies Allergy Verified 12/18/24 04:49 Assessment & Plan Assessment & Plan (1) Cognitive and behavioral changes: Status: Acute Code(s): R41.89 - Other symptoms and signs involving cognitive functions and awareness; R46.89 - Other symptoms and signs involving appearance and behavior Plan Meet with patient around 415 PM in her room. Upon approach she is awake and watching TV, she is looking for the purse in the phone thinking that she has it just a minute before this provider's walking in. She able to answer and follow commands. However she is occasionally distracted herself looking for the dogs and phones and purse. And wallet. She thinks the dogs has been in her room the whole day but someone took it away. She is alert and oriente x2. She does not know where she is but knowing she is in hospital. No her day of states that she is only 40 years old. However she is for an eye years old. She does not know why she is here and how long she has has been in the hospital and what she is here for. She stated that she was here 2 nights ago and she just come back in 4 between the days to go to work. She states that she works full-time at [employer]. Reports she has been in the past taking Wellbutrin for short period of time and Prozac. Reports history of depression. But not sure when she was on dose medication for what reason. She does not remember that she is on methadone. However admit that they gave they have been give it to me. Denies other substance use. She used a walker ambulates to the bedroom with minimum help from staff. Observe working tip toe for balance . Plan: Reason for consult: Conitnue encephalopathy despite medical intervention. Utox not done on admission. BAL was not done. At this point we do not know what the cause of her condition. History of seizure. Continue with care as plan from medical team and do dialysis as scheduled. Continue with methadone as scheduled. Medical team is aware of creatinine level which is high and normal high compared to the past but has no concerns as she is on HD. Team does not think this affect her cogntive impairment. At this point I do not think she meets the criteria to be admitted to inpatient level of care for psychiatric. Suggest to go to rehab as planned per medical team. Case discussed with Twyla and Dr. Ling. Dr. Ling would think she would benefit from memantine or citicoline As off-label for cognitive rehab with outpatient providers as patient is discharge tomorrow. Medical team is aware of creatinine level which is high and normal high compared to the past but has no concerns as she is on HD. Total time managing care of this patient today ____ minutes. Patient educated on: medication risk/benefits Informed Consent: further education needed
[2025-01-17] MEDS: ceFAZolin Sodium 1 GM VIAL IVPUSH (20:33)
[2025-01-18 03:34] VITALS: BP 137/77; PULSE 81; RESP 14; TEMP 36; O2SAT 96
[2025-01-18] MEDS: Omeprazole 20 MG CAPSULE.DR PO (05:31)
[2025-01-18 07:12] LABS: Anion Gap 21 (12-20); Blood Urea Nitrogen 68 mg/dL (9-16); Carbon Dioxide 24 mmol/L (22-29); Chloride 98 mmol/L (96-108); Creatinine Clr Calc Pharmacy 7.1; Estimated Glomerular Filt Rate 6; Glucose Random 95 mg/dL (60-115); Potassium 4.4 mmol/L (3.3-5.1); Sodium 139 mmol/L (135-145)
--- NOTE | 2025-01-18 08:33 | P.PNNP_ITS ---
Subjective Subjective Date of Service: 01/18/25 Interval history: She denies any pain or discomfort. There does not appear to be any sedation related to current methadone dose. She is pending placement and chart review shows that HCP has been invoked. Seen by neurology with note stating Multifactorial encephalopathy from metabolic , hypoxic and infectious etiology . MRI showing mild to moderate white matter changes. seen in HD Physical Exam 2 Vital Signs: Vital Signs: Last Vital Signs Temp 96.8 F 01/18/25 03:34 Pulse 81 01/18/25 03:34 Resp 14 01/18/25 03:34 BP 137/77 01/18/25 03:34 Pulse Ox 96 01/18/25 03:34 O2 Del Method Room Air 01/18/25 03:34 O2 Flow Rate 2 01/10/25 02:29 FiO2 25 12/21/24 09:57 Oxygen Flow Rate 2 12/18/24 04:35 BMI result Body Mass Index 19.8 cvs: s1s2 Rs; cta ABd; soft Objective Data Labs 01/12/25 10:06 01/18/25 05:48 Labs: Laboratory Results - last 24 hr 01/17/25 01/18/25 01/18/25 14:17 05:48 05:48 Hold Purple Top SEE NOTE Sodium 139 Potassium 4.4 Chloride 98 Carbon Dioxide 24 Anion Gap 21 H BUN 68 H Creatinine 5.99 H* Cancelled 6.77 H* Estim Creat Clear Calc 8.2 Cancelled Estimated GFR 7 Random Glucose Calcium 01/18/25 01/18/25 05:48 05:48 Hold Purple Top Sodium Potassium Chloride Carbon Dioxide Anion Gap BUN Creatinine Estim Creat Clear Calc 7.1 Estimated GFR Cancelled 6 Random Glucose 95 Calcium 9.0 D Microbiology Microbiology Results: Microbiology 01/11/25 14:54 Blood - Venous Blood Culture - Final No growth after 5 days. 01/11/25 14:23 Blood - Venous Blood Culture - Final No growth after 5 days. 01/08/25 17:19 Blood - Venous Blood Culture - Final Staphylococcus aureus 01/08/25 17:20 Blood - Venous Blood Culture - Final Staphylococcus aureus 12/28/24 12:24 Blood - Venous Blood Culture - Final No growth after 5 days. 12/28/24 11:13 Blood - Venous Blood Culture - Final No growth after 5 days. 12/18/24 08:11 Blood - Venous Blood Culture - Final No growth after 5 days. 12/18/24 08:11 Blood - Venous Blood Culture - Final No growth after 5 days. Procedures Date of Service Date of Service: 01/18/25 Assessment & Plan Assessment and plan (1) ESRD (end stage renal disease): Status: Acute Plan 1. ESRD: usu mwf [facility] 2. AMS: improving; multifact and w/u as per primary team 3. H/O Severe HTN: BP now running on low side was on clonidine tid, nifedepine 60 bid, coreg 12.5 bid, hydralazine 100mg tid 4. Renal anemia 5. Hemoaccess: s/p new Pcath and worked well REC: hold BP meds for parameters and track BP, presently only on coreg cont HD mwf; card echo if BP remains low will fu cultures for new fever - mssa - on abx for skin source - discussed and will follow w team- planned placement Time Spent With Patient Time: Total time managing care of this patient today ____ minutes. Progress Note: Quality Stroke Does the patient have a stroke diagnosis?: No
[2025-01-18] MEDS: Sevelamer Carbonate Tablet 800 MG TABLET PO ×3 (10:12→17:43)
[2025-01-18] MEDS: carvediloL 12.5 MG TABLET PO ×2 (10:12→20:22)
[2025-01-18] MEDS: vancomycin HCL 125 MG CAPSULE PO ×4 (10:12→20:23)
[2025-01-18] MEDS: levETIRAcetam 500 MG TABLET PO ×2 (10:12→20:22)
[2025-01-18] MEDS: Heparin Sodium,Porcine 5,000 UNIT/ML VIAL 5000 UNIT SUBCUT (10:12)
[2025-01-18] MEDS: methADONE HCl 20 MG/2 ML ORAL.CONC 45 MG PO (10:13)
[2025-01-18] MEDS: Collagenase Clostridium Hist. 30 GM TUBE 1 APPL TOPICAL ×2 (10:14→20:23)
[2025-01-18 10:15] VITALS: BP 130/89; PULSE 86; RESP 16; TEMP 36.5; O2SAT 98
--- NOTE | 2025-01-18 12:45 | MHC.CM.PN ---
Addendum entered by Aimee Casas RN 01/18/25 15:19: Have not received PT1 approval. Transport canceled. LM for HCP to update. RN and MD aware. Original Note: Patient medically cleared for dc to STR @ [facility]. Guest dosing approved today per Yamilet at [facility] MDS approved today per Guillermina @ [facility], DC summary with less than 30 faxed per request Evaluated by psych, per HCP/sister request - no recommendation for IPLOC Per facility liaison Katalina(?[phone]) , PT-1 and transport to methadone clinic are arranged, but still waiting on PT-1 approval and [facility]30[facility] chair time LM for sister/HCP iNca to discuss. If HD transport is coordinated today, patient will dc.
--- NOTE | 2025-01-18 15:10 | P.PNADD_ITS ---
Subjective Subjective Date of Service: 01/18/25 Reason For Visit: ACS follow up Medical Problems Affecting Mental Status: Yes Interim History: Patient seen in follow up for methadone dose adjustment Dose decreased from 50mg to 45mg today. Patient appears comfortable, confused, asking about her sister. Denies any pain, body aches. Review of Systems Constitutional: Reports as per HPI Mental Status Exam Mental Status Exam Patient Appearance: Appropriate Level of Consciousness: Awake, Disoriented and Alert Patient Behavior: Cooperative Diagnostics Vital Signs (24Hr): Vital Signs - 24 hr 01/17/25 15:31 01/17/25 19:05 01/18/25 03:34 Temperature 97.9 F 98.5 F 96.8 F Pulse Rate 82 83 81 Respiratory Rate 18 16 14 Blood Pressure 142/81 H 126/79 137/77 Pulse Oximetry 100 97 96 Oxygen Delivery Method Room Air Room Air Room Air 01/18/25 10:15 Temperature 97.7 F Pulse Rate 86 Respiratory Rate 16 Blood Pressure 130/89 Pulse Oximetry 98 Oxygen Delivery Method Room Air BMI result Body Mass Index 19.8 Labs 01/12/25 10:06 01/18/25 05:48 Labs: Laboratory Results - last 48 hr 01/17/25 01/18/25 01/18/25 14:17 05:48 05:48 Hold Purple Top SEE NOTE Sodium 139 Potassium 4.4 Chloride 98 Carbon Dioxide 24 Anion Gap 21 H BUN 68 H Creatinine 5.99 H* Cancelled 6.77 H* Estim Creat Clear Calc 8.2 Cancelled Estimated GFR 7 Random Glucose Calcium 01/18/25 01/18/25 05:48 05:48 Hold Purple Top Sodium Potassium Chloride Carbon Dioxide Anion Gap BUN Creatinine Estim Creat Clear Calc 7.1 Estimated GFR Cancelled 6 Random Glucose 95 Calcium 9.0 D Imaging Radiology Impressions: ITS Impressions Insertion Tunneled Catheter 01/03/25 14:30 IMPRESSION: Exchange of a right IJ approach tunneled hemodialysis catheter PLAN: -The catheter may be used immediately. Electronically signed by: Earnest Sahni MD 01/03/2025 03:44 PM EDT RP Chest X-Ray 01/09/25 11:55 IMPRESSION: 1. No active pulmonary disease. 2. Right central venous catheter remains in good position. Electronically signed by: Vipul Davison MD 01/09/2025 12:31 PM EDT RP Medications Medications Current Medications Acetaminophen (Acetaminophen 325 Mg Tablet) 975 mg PO Q6H PRN PRN Reason: Headache/Pain, Scale 1-10 Last Admin: 01/10/25 05:43 Dose: 975 mg Acetaminophen (Acetaminophen Supp 650 Mg Supp.Rect) 650 mg [place] Q4H PRN PRN Reason: Pain, Mild 1-3,fever,headache Last Admin: 01/09/25 21:09 Dose: 650 mg Carvedilol (Carvedilol 12.5 Mg Tablet) 12.5 mg PO BID [facility]; Protocol Last Admin: 01/18/25 10:12 Dose: 12.5 mg Cefazolin Sodium (Cefazolin Sodium 1 Gm Vial) 1 gm IVPUSH Q24H [facility] Last Admin: 01/17/25 20:33 Dose: 1 gm Collagenase (Collagenase Clostridium Hist. 30 Gm Tube) 1 appl TOPICAL BID [facility]; Protocol Last Admin: 01/18/25 10:14 Dose: 1 appl Diphenhydramine HCl (Diphenhydramine Hcl 25 Mg Capsule) 12.5 mg PO DAILY PRN PRN Reason: ITCHINESS Heparin Sodium (Porcine) (Heparin Sodium,Porcine 5,000 Unit/Ml Vial) 5,000 unit SUBCUT Q12H [facility] Last Admin: 01/18/25 10:12 Dose: 5,000 unit Levetiracetam (Levetiracetam 500 Mg Tablet) 500 mg PO BID [facility] Last Admin: 01/18/25 10:12 Dose: 500 mg Melatonin (Melatonin 3 Mg Tablet) 6 mg PO BEDTIME PRN PRN Reason: sleep Last Admin: 01/14/25 21:45 Dose: 6 mg Methadone HCl (Methadone Hcl 20 Mg/2 Ml Oral.Conc) 45 mg PO DAILY@0800 [facility] Last Admin: 01/18/25 10:13 Dose: 45 mg Omeprazole (Omeprazole 20 Mg Capsule.Dr) 20 mg PO DAILY@0630 [facility] Last Admin: 01/18/25 05:31 Dose: 20 mg Sevelamer Carbonate (Sevelamer Carbonate Tablet 800 Mg Tablet) 800 mg PO TIDWM [facility] Last Admin: 01/18/25 14:04 Dose: 800 mg Sodium Zirconium Cyclosilicate (Sodium Zirconium Cyclosilicate 10 Gm Powd.Pack) 10 gm PO SUTUTHSA [facility] Last Admin: 01/17/25 12:28 Dose: 10 gm Vancomycin HCl (Vancomycin Hcl 125 Mg Capsule) 125 mg PO QID [facility] Last Admin: 01/18/25 14:03 Dose: 125 mg Allergies Allergies Allergy/AdvReac Type Severity Reaction Status Date / Time No Known Allergies Allergy Verified 12/18/24 04:49 Assessment & Plan Assessment & Plan (1) Opioid use disorder: Status: Acute Code(s): F11.90 - Opioid use, unspecified, uncomplicated Assessment and Plan: * continue methadone at current dose * will follow up later this week Total time managing care of this patient today __15__ minutes.
--- NOTE | 2025-01-18 15:17 | P.PNIM_ITS ---
Subjective Subjective Date of Service: 01/18/25 Interval History: seen and evaluated this morning frail and confused tolerating dialysis no other events Review of Systems Review of Systems: Yes all other systems are reviewed and are negative Physical Exam 2 Vital Signs: Vital Signs: Last Vital Signs Temp 97.7 F 01/18/25 10:15 Pulse 86 01/18/25 10:15 Resp 16 01/18/25 10:15 BP 130/89 01/18/25 10:15 Pulse Ox 98 01/18/25 10:15 O2 Del Method Room Air 01/18/25 10:15 O2 Flow Rate 2 01/10/25 02:29 FiO2 25 12/21/24 09:57 Oxygen Flow Rate 2 12/18/24 04:35 BMI result Body Mass Index 19.8 Const: Other: Constitutional : awake and interactive, frail, not in distress Neck : Normal inspection, Supple Cardiovascular : RRR, no JVP, no lower extremity edema Respiratory : good bilateral air entry, no crackles, wheezes or rhonchi Gastrointestinal: soft, lax, Normal bowel sounds, Non tender Skin : Warm, Dry, bruises , Dialysis cath chest wall covered with dressing, no bleeding or rash Neurological : Alert & oriented to self , easily confused, No focal deficit Objective Data Active Medications Acetaminophen (Acetaminophen 325 Mg Tablet) 975 mg PO Q6H PRN PRN Reason: Headache/Pain, Scale 1-10 Last Admin: 01/10/25 05:43 Dose: 975 mg Documented By: HARJINDER Acetaminophen (Acetaminophen Supp 650 Mg Supp.Rect) 650 mg [place] Q4H PRN PRN Reason: Pain, Mild 1-3,fever,headache Last Admin: 01/09/25 21:09 Dose: 650 mg Documented By: HARJINDER Carvedilol (Carvedilol 12.5 Mg Tablet) 12.5 mg PO BID [facility]; Protocol Last Admin: 01/18/25 10:12 Dose: 12.5 mg Documented By: NING Cefazolin Sodium (Cefazolin Sodium 1 Gm Vial) 1 gm IVPUSH Q24H [facility] Last Admin: 01/17/25 20:33 Dose: 1 gm Documented By: GRIS Collagenase (Collagenase Clostridium Hist. 30 Gm Tube) 1 appl TOPICAL BID [facility]; Protocol Last Admin: 01/18/25 10:14 Dose: 1 appl Documented By: NING Diphenhydramine HCl (Diphenhydramine Hcl 25 Mg Capsule) 12.5 mg PO DAILY PRN PRN Reason: ITCHINESS Heparin Sodium (Porcine) (Heparin Sodium,Porcine 5,000 Unit/Ml Vial) 5,000 unit SUBCUT Q12H [facility] Last Admin: 01/18/25 10:12 Dose: 5,000 unit Documented By: NING Levetiracetam (Levetiracetam 500 Mg Tablet) 500 mg PO BID [facility] Last Admin: 01/18/25 10:12 Dose: 500 mg Documented By: NING Melatonin (Melatonin 3 Mg Tablet) 6 mg PO BEDTIME PRN PRN Reason: sleep Last Admin: 01/14/25 21:45 Dose: 6 mg Documented By: SISSY Methadone HCl (Methadone Hcl 20 Mg/2 Ml Oral.Conc) 45 mg PO DAILY@0800 [facility] Last Admin: 01/18/25 10:13 Dose: 45 mg Documented By: NING Co-signed By: EVARISTO Omeprazole (Omeprazole 20 Mg Capsule.) 20 mg PO DAILY@0630 [facility] Last Admin: 01/18/25 05:31 Dose: 20 mg Documented By: GRIS Sevelamer Carbonate (Sevelamer Carbonate Tablet 800 Mg Tablet) 800 mg PO TIDWM [facility] Last Admin: 01/18/25 14:04 Dose: 800 mg Documented By: NING Sodium Zirconium Cyclosilicate (Sodium Zirconium Cyclosilicate 10 Gm Powd.Pack) 10 gm PO SUTUTHSA [facility] Last Admin: 01/17/25 12:28 Dose: 10 gm Documented By: SHAN Vancomycin HCl (Vancomycin Hcl 125 Mg Capsule) 125 mg PO QID [facility] Last Admin: 01/18/25 14:03 Dose: 125 mg Documented By: NING Labs 01/12/25 10:06 01/18/25 05:48 Labs: Laboratory Results - last 24 hr 01/18/25 01/18/25 01/18/25 05:48 05:48 05:48 Hold Purple Top SEE NOTE Anion Gap 21 H Estim Creat Clear Calc Cancelled 7.1 Estimated GFR Cancelled 6 Random Glucose 95 Calcium 9.0 D Assessment and Plan (1) MSSA bacteremia: Status: Acute (2) Cognitive and behavioral changes: Status: Acute Plan 49 year old female with history of ESRD on hemodialysis Thursday/Thursday/Thursday with history of noncompliance, seizure disorder, anemia of chronic kidney disease, polysubstance IV drug use disorder on methadone who was recently admitted for hypertensive urgency and VRE bacteremia d/c with 28 days of linezolid on 12/03 who was brought to the emergency department on December 18 with altered mental status after being found unresponsive with concern for status epilepticus intubated in the emergency room and admitted to the ICU, downgraded to the medical floor on 12/23 Sepsis due to Staph aureus bacteremia. Sepsis resolved 2/2 blood cultures growing MSSA, negative repeat since 01/11 CXR neg for PNA. cdiff neg echo with no obvious vegetation seen by ID, possible skin source, Switch to cefazolin recommend 4 weeks IV Surveillance blood cultures negative to date oral vancomycin for C diff prophylaxis for duration of antibiotics +1 week (recent cdif infection) Acute toxic\metabolic encephalopathy Due to in hospital delirium EEG, No evidence of seizure disorder. Frequent reorientation and redirection discussed results of brain MRI with neuro>likely anoxic injury, if pt has improvement will likely take up to a year and will probably be incomplete HCP invoked Psych consultation pending Hypertensive urgency, more stable BP fluctuating, was very high, then very low. Continued on Coreg hydralazine, clonidine and Nifedipine stopped Physical deconditioning Awaiting Rehab placement Lethargy. Resolved Increase physical activity as tolerated ESRD on hemodialysis[facility] [place] [facility] following Permacath replaced by IR 01/03 Hyperkalemia ESRD HD on [facility] changed to non-dialysis days only due Seizure disorder no seizures during hospital admission Chris Polysubstance use disorder Addiction Team following Methadone Recent bacteremia with VRE Was on PO linezolid for 28 days, completed course Repeated blood cultures 12/28- Final culture no growth right scapula - unstageable pressure injury sacrum DTI poa wound care as per wound care nurse. see note for full recommendations DVT prophylaxis Mechanical devices, Heparin Full code Disposition, awaiting placement Quality Stroke Does the patient have a stroke diagnosis?: No VTE Prior VTE?: No VTE Risk Level:: Medical - moderate - high VTE Device Contraindication: Treatment Not Indicated VTE Drug Contraindication: N/A - Med Ordered
[2025-01-18 15:31] VITALS: BP 136/93; PULSE 79; RESP 18; TEMP 36.7; O2SAT 99
--- NOTE | 2025-01-18 16:12 | MHC.CLN ---
F/U MOST RECENT PO INTAKE USUALLY 100%. DIET RX: 2GM NA, LOW POTASSIUM, LOW PHOS ENSURE CLEAR DISCONTINUED SINCE PATIENT NOT TAKING. CONTINUE TO MONITOR PO INTAKE, WEIGHT AND WOUND HEALING
[2025-01-18 19:14] VITALS: BP 134/92; PULSE 92; RESP 18; TEMP 36.6; O2SAT 97
[2025-01-18] MEDS: ceFAZolin Sodium 1 GM VIAL IVPUSH (20:22)
[2025-01-19 03:31] VITALS: BP 124/74; PULSE 87; RESP 18; TEMP 36.8; O2SAT 100
[2025-01-19] MEDS: Omeprazole 20 MG CAPSULE.DR PO (05:33)
[2025-01-19 06:00] VITALS: BMI 21.5
[2025-01-19 07:14] VITALS: BP 107/62; PULSE 74; RESP 14; TEMP 37.1; O2SAT 97
[2025-01-19] MEDS: Sevelamer Carbonate Tablet 800 MG TABLET PO ×2 (07:59→13:19)
[2025-01-19] MEDS: levETIRAcetam 500 MG TABLET PO (09:18)
[2025-01-19] MEDS: vancomycin HCL 125 MG CAPSULE PO ×2 (09:18→13:19)
[2025-01-19] MEDS: methADONE HCl 20 MG/2 ML ORAL.CONC 45 MG PO (09:18)
[2025-01-19] MEDS: Heparin Sodium,Porcine 5,000 UNIT/ML VIAL 5000 UNIT SUBCUT (09:19)
[2025-01-19 09:25] VITALS: BP 108/75; PULSE 85
--- NOTE | 2025-01-19 11:27 | MHC.CM.PN ---
Per [facility] liaison, transportation to HD is approved and arranged. Caprice at [facility] is aware of dc, reports patient has been cleared to start HD tomorrow. Yamilet @ [facility] aware patient did not dc yesterday and will start guest dosing tomorrow, sent updated paperwork. BLS transport scheduled for 2pm to [facility] for STR. LM for HCP/sister Nica malcolm/ all information above.
[2025-01-19] MEDS: Sodium Zirconium Cyclosilicate 10 GM POWD.PACK PO (11:34)
[2025-01-19] MEDS: Collagenase Clostridium Hist. 30 GM TUBE 1 APPL TOPICAL (13:19)
[2025-01-19 14:43] VITALS: BP 143/77; PULSE 86; RESP 18; O2SAT 98
--- NOTE | 2025-01-19 15:13 | PC.NURSE ---
This RN attempted to call nurse to nurse report to [facility]. Unable to get in contact with unit nurse.
--- NOTE | 2025-01-19 16:41 | PC.NURSE ---
Pt alleged Mother called inquiring about patient d/c. Encouraged to talk with HCP who is in charge of patients care.
== END 2025-01-19 14:45 | disposition skilled nursing facility (03) | DRG 53 ==
LOC: HO.ED 09:08 → HO.EDOVER 09:56 → HO.ICU 09:57 → HO.IMC 12-22 16:16 → HO.S3 12-26 13:18 → HO.IMC 12-30 22:25 → HO.S3 01-06 00:48 → HO.IMC 01-08 19:27 → HO.S3 01-15 02:28
PROVIDERS: Emergency Medicine Emergency Medical Services; Hospitalist; Internal Medicine Critical Care Medicine; Nurse Practitioner Acute Care; Physician Assistant Medical; Registered Nurse Community Health; Student in an Organized Health Care Education/Training Program; Admitting Provider Internal Medicine Pulmonary Disease; Emergency Provider Emergency Medicine; Visit Provider Physician Assistant Medical
PROC: 0JH63XZ Insertion of Tunneled Vascular Access Device into Chest Subcutaneous Tissue and Fascia, Percutaneous Approach (ICD-10-PCS; principal; 2025-01-03 15:30)
DX: G40.901 Epilepsy, unspecified, not intractable, with status epilepticus (principal); J96.01 Acute respiratory failure with hypoxia; A41.01 Sepsis due to Methicillin susceptible Staphylococcus aureus; J69.0 Pneumonitis due to inhalation of food and vomit; G92.8 Other toxic encephalopathy; G93.1 Anoxic brain damage, not elsewhere classified; A04.72 Enterocolitis due to Clostridium difficile, not specified as recurrent; L89.110 Pressure ulcer of right upper back, unstageable; T50.901A Poisoning by unspecified drugs, medicaments and biological substances, accidental (unintentional), initial encounter; I12.0 Hypertensive chronic kidney disease with stage 5 chronic kidney disease or end stage renal disease; D63.1 Anemia in chronic kidney disease; F11.20 Opioid dependence, uncomplicated; R53.81 Other malaise; E87.5 Hyperkalemia; L89.156 Pressure-induced deep tissue damage of sacral region; W19.XXXA Unspecified fall, initial encounter; Y92.231 Patient bathroom in hospital as the place of occurrence of the external cause; F05 Delirium due to known physiological condition; N18.6 End stage renal disease; F19.90 Other psychoactive substance use, unspecified, uncomplicated; Z99.2 Dependence on renal dialysis; I16.0 Hypertensive urgency; Z20.822 Contact with and (suspected) exposure to COVID-19; Z79.899 Other long term (current) drug therapy
CPT/HCPCS: 0241U; 36415; 36558; 70450; 70490; 70551; 71045; 71250; 72125; 74176; 80048; 80053; 80202; 80307; 82040; 82140; 82550; 82565; 82803; 82947; 83605; 83690; 83735; 84100; 84132; 85007; 85025; 85027; 85610; 85652; 85730; 86140; 86704; 86706; 86850; 86900; 86901; 87040; 87077; 87147; 87186; 87205; 87340; 87493; 87633; 90999; 92526; 92610; 93005; 93306; 94002; 94003; 94799; 95816; 97116; 97162; 97166; 99152; 99285; C1750; J0131; J0295; J0613; J0690; J1308; J1644; J1920; J1953; J2003; J2020; J2250; J2310; J2404; J2405; J2543; J2560; J2704; J2919; J3010; J3360; J3370; J3480; J7120; P9047; Q9967; S9485

== ENCOUNTER → 2024-12-18 04:49 | Outpatient (BNV) | payer MEDICAID, SELFPAY | PROVIDERS: Admitting Provider Internal Medicine Pulmonary Disease; Emergency Provider Emergency Medicine; Visit Provider Internal Medicine Cardiovascular Disease | DX: I51.7 Cardiomegaly (principal) | CPT/HCPCS: 93010 ==

== ENCOUNTER → 2024-12-18 04:57 | Outpatient (BNV) | payer MEDICAID, SELFPAY | PROVIDERS: Emergency Provider Emergency Medicine Emergency Medical Services; Visit Provider Specialist | DX: R22.1 Localized swelling, mass and lump, neck (principal); J98.2 Interstitial emphysema; M54.6 Pain in thoracic spine; G44.309 Post-traumatic headache, unspecified, not intractable; R41.82 Altered mental status, unspecified; Z93.0 Tracheostomy status | CPT/HCPCS: 70450; 70490; 71045; 71250; 72125 ==

== ENCOUNTER 2024-12-18 09:44 | Outpatient (BNV) | payer MEDICAID, SELFPAY | END 2025-01-09 11:55 | PROVIDERS: Admitting Provider Internal Medicine Pulmonary Disease; Emergency Provider Emergency Medicine; Visit Provider Radiology Diagnostic Radiology | DX: R50.9 Fever, unspecified (principal); R09.02 Hypoxemia | CPT/HCPCS: 71045 ==

== ENCOUNTER 2024-12-18 09:44 | Outpatient (BNV) | payer MEDICAID, SELFPAY | END 2024-12-27 06:33 | PROVIDERS: Admitting Provider Internal Medicine Pulmonary Disease; Emergency Provider Emergency Medicine; Visit Provider Internal Medicine | DX: I49.3 Ventricular premature depolarization (principal); Z95.0 Presence of cardiac pacemaker; R94.31 Abnormal electrocardiogram [ECG] [EKG]; R07.9 Chest pain, unspecified | CPT/HCPCS: 93010 ==

== ENCOUNTER 2024-12-18 09:44 | Outpatient (BNV) | payer MEDICAID, SELFPAY | END 2025-01-03 14:30 | PROVIDERS: Admitting Provider Internal Medicine Pulmonary Disease; Emergency Provider Emergency Medicine; Visit Provider Student in an Organized Health Care Education/Training Program | DX: N18.6 End stage renal disease (principal); Z99.2 Dependence on renal dialysis | CPT/HCPCS: 36581; 76937; 77001; 99152 ==

== ENCOUNTER 2024-12-18 09:44 | Outpatient (BNV) | payer MEDICAID, SELFPAY | END 2024-12-30 01:51 | PROVIDERS: Admitting Provider Internal Medicine Pulmonary Disease; Emergency Provider Emergency Medicine; Visit Provider Radiology Diagnostic Radiology | DX: S32.10XA Unspecified fracture of sacrum, initial encounter for closed fracture (principal); M50.30 Other cervical disc degeneration, unspecified cervical region; J32.2 Chronic ethmoidal sinusitis | CPT/HCPCS: 70450; 72125; 74176 ==

== ENCOUNTER 2024-12-18 09:44 | Outpatient (BNV) | payer MEDICAID, SELFPAY | END 2024-12-30 07:44 | PROVIDERS: Admitting Provider Internal Medicine Pulmonary Disease; Emergency Provider Emergency Medicine; Visit Provider Internal Medicine | DX: I49.3 Ventricular premature depolarization (principal) | CPT/HCPCS: 93010 ==

== ENCOUNTER 2024-12-18 09:44 | Outpatient (BNV) | payer MEDICAID, SELFPAY | END 2025-01-09 07:00 | PROVIDERS: Admitting Provider Internal Medicine Pulmonary Disease; Emergency Provider Emergency Medicine; Visit Provider Internal Medicine Cardiovascular Disease | DX: R78.81 Bacteremia (principal); I51.89 Other ill-defined heart diseases | CPT/HCPCS: 93306 ==

== ENCOUNTER 2024-12-18 09:44 | Outpatient (BNV) | payer MEDICAID, SELFPAY | END 2025-01-08 18:05 | PROVIDERS: Admitting Provider Internal Medicine Pulmonary Disease; Emergency Provider Emergency Medicine; Visit Provider Internal Medicine Cardiovascular Disease | DX: R00.1 Bradycardia, unspecified (principal) | CPT/HCPCS: 93010 ==

== ENCOUNTER 2024-12-18 09:44 | Outpatient (BNV) | payer MEDICAID, SELFPAY | END 2024-12-27 17:07 | PROVIDERS: Admitting Provider Internal Medicine Pulmonary Disease; Emergency Provider Emergency Medicine; Visit Provider Specialist | DX: R90.82 White matter disease, unspecified (principal); J34.9 Unspecified disorder of nose and nasal sinuses | CPT/HCPCS: 70551 ==

== ENCOUNTER 2024-12-18 09:44 | Outpatient (BNV) | payer MEDICAID, SELFPAY | END 2025-01-08 17:00 | PROVIDERS: Admitting Provider Internal Medicine Pulmonary Disease; Emergency Provider Emergency Medicine; Visit Provider Radiology Diagnostic Radiology | DX: R50.9 Fever, unspecified (principal); R09.02 Hypoxemia | CPT/HCPCS: 71045 ==

== ENCOUNTER → 2024-12-18 09:44 | Outpatient (BNV) | payer MEDICAID, SELFPAY | PROVIDERS: Admitting Provider Internal Medicine Pulmonary Disease; Emergency Provider Emergency Medicine; Visit Provider Student in an Organized Health Care Education/Training Program | DX: G93.40 Encephalopathy, unspecified (principal); N18.6 End stage renal disease; I16.0 Hypertensive urgency | CPT/HCPCS: 99231; 99232; 99233; 99499 ==

== ENCOUNTER → 2024-12-18 09:44 | Outpatient (BNV) | payer MEDICAID, SELFPAY | PROVIDERS: Admitting Provider Internal Medicine Pulmonary Disease; Emergency Provider Emergency Medicine; Visit Provider Psychiatry & Neurology Neurology | DX: G93.40 Encephalopathy, unspecified (principal) | CPT/HCPCS: 99222 ==

== ENCOUNTER → 2024-12-18 09:44 | Outpatient (BNV) | payer MEDICAID, SELFPAY | PROVIDERS: Admitting Provider Internal Medicine Pulmonary Disease; Emergency Provider Emergency Medicine; Visit Provider Internal Medicine Pulmonary Disease | DX: N18.6 End stage renal disease (principal); Z99.2 Dependence on renal dialysis; I16.0 Hypertensive urgency; F19.10 Other psychoactive substance abuse, uncomplicated | CPT/HCPCS: 99291 ==

== ENCOUNTER → 2024-12-18 09:44 | Outpatient (BNV) | payer MEDICAID, SELFPAY | PROVIDERS: Admitting Provider Internal Medicine Pulmonary Disease; Emergency Provider Emergency Medicine; Visit Provider Internal Medicine | DX: R50.9 Fever, unspecified (principal); F11.90 Opioid use, unspecified, uncomplicated; F19.10 Other psychoactive substance abuse, uncomplicated; R78.81 Bacteremia | CPT/HCPCS: 99222 ==

== ENCOUNTER → 2024-12-18 09:44 | Outpatient (BNV) | payer OTHER, SELFPAY | PROVIDERS: Admitting Provider Internal Medicine Pulmonary Disease; Emergency Provider Emergency Medicine; Visit Provider Nurse Practitioner Psychiatric/Mental Health | DX: F11.90 Opioid use, unspecified, uncomplicated (principal) | CPT/HCPCS: 99232 ==

== ENCOUNTER → 2024-12-18 09:44 | Outpatient (BNV) | payer MEDICAID, SELFPAY | PROVIDERS: Admitting Provider Internal Medicine Pulmonary Disease; Emergency Provider Emergency Medicine; Visit Provider Internal Medicine Critical Care Medicine | DX: I16.0 Hypertensive urgency (principal); N18.6 End stage renal disease; G93.40 Encephalopathy, unspecified; J96.00 Acute respiratory failure, unspecified whether with hypoxia or hypercapnia | CPT/HCPCS: 99232 ==